=== PATIENT | female | born 1950 | race Caucasian/White ===

== ENCOUNTER 2018-05-30 19:33 | Emergency (ER) | payer MEDICARE, SELFPAY ==
[2018-05-30 19:33] VITALS: BP 132/75; PULSE 95; RESP 18; TEMP 36.4; O2SAT 100; BMI 34.9
--- NOTE | 2018-05-30 20:07 | ED.VISSUMM ---
- ER Visit Summary Date of Service: 05/30/18 Chief Complaint: Back pain History of Present Illness: The patient is a 67 F with back pain. The patient has a history of back pain. I know her well from a different emergency department and have seen her on many occasions. She was previously in pain management and she was kicked out because of pill count issues. She usually comes to the ER for breakthrough pain. She complains of her typical back pain in her lower back. It radiates down her legs. Worse with movement and ambulation. No new symptoms. No abdominal pain or GI symptoms. No urinary symptoms. No fevers or systemic symptoms. No weakness or numbness. She also has psoriasis and is requesting a burst therapy of prednisone. She has had this issue many times in the past. Physical Examination: Afebrile and vital signs unremarkable. Patient is alert and oriented. No acute distress. Skin shows scaly and silvery plaques over her lower extremities. Abdomen soft. Back is diffusely tender. Neurovascular intact distally. Test Results: None indicated Emergency Department Course and Treatment: Patient received oral pain medication in the emergency department. I advised that we will not prescribe narcotics for chronic pain. She needs to follow-up with a new pain doctor. She was given a burst therapy for prednisone. Risks were discussed. She will follow-up with primary care for this. Return at any time for any new or worsening issues. Treatment Plan: As above Disposition: Discharged Impression: 1. Chronic back pain This note was generated with [employer] (air [employer]) dictation software. It may contain incorrect words, spelling, and punctuation that were not noted in review of the chart prior to signing ED Disposition - Plan for ED Patient: Chief Complaint: Back
--- NOTE | 2018-05-30 20:11 | ED.DEP ---
ED Disposition - Plan for ED Patient: Chief Complaint: Back Instructions: ED Sprain Strain Lumbar Prescriptions: Prednisone 40 mg PO UD 5 Days #20 tab Referrals: Kacy Juarez MD [STAFF PHYSICIAN] -
[2018-05-30] MEDS: oxyCODONE 5 MG Tablet 10 MG PO (20:18)
== END 2018-05-30 20:26 | disposition home or self-care (01) ==
PROVIDERS: Emergency Provider Emergency Medicine
DX: M54.9 Dorsalgia, unspecified (principal); G89.29 Other chronic pain; L40.9 Psoriasis, unspecified; Z79.01 Long term (current) use of anticoagulants; Z79.899 Other long term (current) drug therapy
CPT/HCPCS: 99283

== ENCOUNTER 2018-06-01 11:47 | Emergency (ER) | payer MEDICARE, SELFPAY ==
[2018-06-01 11:48] VITALS: BP 145/96; PULSE 101; RESP 18; TEMP 36.1; O2SAT 99; BMI 34.9
--- NOTE | 2018-06-01 12:06 | ED.VISSUMM ---
- ER Visit Summary Date of Service: 06/01/18 Chief Complaint: Chronic back pain History of Present Illness: The patient is a 67 F with a history of multiple presenting to the emergency department requesting Percocet. She states that she was discharged from pain management because she failed a pill count. She is currently waiting to get into pain management out here in [place]. She states that she has seen multiple surgeons and has been told that surgically there is nothing they can do. She denies any changes in the character or severity of her pain. It is in the same location as usual. She states that she was here 2 days ago and received Percocet. Physical Examination: Mild paraspinal lumbar tenderness bilaterally but no midline tenderness, erythema, or fluctuance. Normal strength and sensation in both lower extremities. Negative Babinski's. No clonus. Reflexes are normal and symmetric. Test Results: None performed Emergency Department Course and Treatment: She was given Percocet here. I have seen her at an outside hospital multiple times for the same complaint. She assures me that this is a chronic issue. I did not feel comfortable prescribing her chronic medications and I encouraged her to see her primary care physician or pain management for further prescriptions but her pain was addressed here. She does not want any non-opiate pain medication. She states that nothing else helps her including muscle relaxers or steroids. Treatment Plan: Follow-up with her doctor Disposition: Home stable Impression: Initial encounter chronic back pain This note was generated with [employer] dictation software. It may contain incorrect words, spelling, and punctuation that were not noted in review of the chart prior to signing ED Disposition - Plan for ED Patient: Chief Complaint: Other, Pain/Inj Instructions: ED Chronic Pain Management Referrals: Care Physician,No Primary [Primary Care Provider] -
[2018-06-01] MEDS: oxyCODONE 5 MG Tablet 10 MG PO (12:24)
== END 2018-06-01 12:25 | disposition home or self-care (01) ==
LOC: ED 12:20
PROVIDERS: Emergency Provider Emergency Medicine
DX: M54.9 Dorsalgia, unspecified (principal); G89.29 Other chronic pain; M19.90 Unspecified osteoarthritis, unspecified site; Z79.01 Long term (current) use of anticoagulants; Z79.899 Other long term (current) drug therapy
CPT/HCPCS: 99282

== ENCOUNTER → 2018-06-03 13:09 | Outpatient (CLI) | payer MEDICARE, SELFPAY ==
[2018-06-03 16:01] LABS: Amphetamine Urine VISTA NEGATIVE (<1000 ng/mL); Barbiturate Urine VISTA NEGATIVE (< 200 ng/mL); Benzodiazepine Urine VISTA NEGATIVE (< 200 ng/mL); Cocaine Urine VISTA NEGATIVE (< 300 ng/mL); Ecstacy Urine VISTA NEGATIVE (< 500 ng/mL); Methadone Urine VISTA NEGATIVE (< 300 ng/mL); PCP Urine VISTA NEGATIVE (< 25 ng/mL); THC Urine VISTA NEGATIVE (< 50 ng/mL); Vista UDS pH Range 7
== END ==
PROVIDERS: Referring Provider Anesthesiology Pain Medicine; Visit Provider Anesthesiology Pain Medicine
DX: F11.20 Opioid dependence, uncomplicated (principal)
CPT/HCPCS: 80307

== ENCOUNTER 2018-07-05 11:06 | Emergency (ER) | payer MEDICARE, SELFPAY ==
[2018-07-05 11:07] VITALS: BP 144/64; PULSE 104; RESP 16; TEMP 36.6; O2SAT 97; BMI 35.1
--- NOTE | 2018-07-05 11:39 | ED.DCSUM_ITS ---
- ER Visit Summary Date of Service: 07/05/18 Chief Complaint: Back pain History of Present Illness: The patient is a 67 F with chronic back pain. She is in pain management. She uses 3 Percocets per day and they are not helping with her pain. She complains of increasing back pain. No interval changes or injuries. No new symptoms. No GI or symptoms. She also has bilateral lower extremity skin rashes and scaling. She has a history of eczema. She is requesting a prednisone prescription for this. She did have cellulitis recently but it has cleared up. No fevers or systemic symptoms. Physical Examination: Afebrile and vital signs unremarkable. Alert and oriented. No acute distress. Moving without any apparent difficulty or distress. Abdomen soft. Extremities unremarkable except for a scaly dry rash to her lower extremities. No erythema or warmth. Neurovascular intact in all extremities. Symmetric. Test Results: None indicated Emergency Department Course and Treatment: Patient will be treated with subcu Dilaudid and a prednisone burst therapy. She was advised to follow-up with pain management. Return for any new or worsening issues. Treatment Plan: As above Disposition: Discharge Impression: 1. Chronic back pain This note was generated with [employer] dictation software. It may contain incorrect words, spelling, and punctuation that were not noted in review of the chart prior to signing ED Disposition - Plan for ED Patient: Chief Complaint: Back Referrals: Care Physician,No Primary [Primary Care Provider] -
--- NOTE | 2018-07-05 11:43 | ED.DEP ---
ED Disposition - Plan for ED Patient: Chief Complaint: Back Instructions: ED Sprain Strain Lumbar Prescriptions: Prednisone 40 mg PO UD 5 Days #20 tab
[2018-07-05] MEDS: HYDROmorphone 1 MG/ML Syringe SC (11:52)
[2018-07-05 12:11] VITALS: BP 144/87; PULSE 100; RESP 15; O2SAT 93
--- OUTSIDE RECORDS SUMMARY | 2018-08-28 23:09 | XMS RPT_ITS ---
:1950 Author Organization [facility] Address [address] [place] [address] Phone Care Team Providers Name Role Phone Johnny Tidwell MD Unavailable Reason for Visit Reason For Visit Description Start Date New - 1st visit with practice Preliminary reason for visit data, not yet signed by the author as of lower back pain Preliminary reason for visit data, not yet signed by the author as of Chief Complaint Chief Complaint Description Start Date lower back pain Preliminary chief complaint data, not yet signed by the author as of Instructions Instruction Description Start Date Patient advised to follow-up with Primary Care Physician for BMI management. Plan of Care Type Date Detail Appointment 01:30 PM Johnny Tidwell MD, [address] [place] [address], [id number], Pending order XR LUMBAR 4VWS FLEX/EX Pending order DXA - standard order of spine and hip; axial skeleton 1 + views Patient education \[email or web address] Medications Medication Instructions Start Stop Generic Name NDC Provider Date Date IBUPROFEN 400 as needed IBUPROFEN [id number] Johnny Manuel MG TABS 5 Yaw STEIN XARELTO 20 MG one tab daily RIVAROXABAN [id number] Johnny Tidwell MD LISINOPRIL-HYD one tab daily LISINOPRIL-HYD [id number] Johnny Manuel ROCHLOROTHIAZI 5 ROCHLOROTHIAZI Yaw STEIN DE 10-12.5 MG DE TABS RISPERDAL 0.25 one tab twice RISPERIDONE [id number] Johnny S MG TABS daily 5 Yaw STEIN ZOLOFT 100 MG one tab daily SERTRALINE HCL [id number] Johnny S TABS 5 Yaw TSEIN Conditions or Problems Problem Name Problem Onset Status Entry Provider Comment Standard Annotate Code Date Date Description Osteoporosis 44655061 Active Johnny S Osteoporosis (SNOMED 04/28 04/[address]) Other M51.36 Active Johnny S Other intervertebral (ICD-10-C 04/28 04/28 Yaw STEIN intervertebral disc M) disc degeneration degeneration, lumbar region lumbar region Other idiopathic M41.26 Active Johnny S Other scoliosis lumbar (ICD-10-C 04/28 04/28 Yaw STEIN idiopathic region M) scoliosis, lumbar region Allergies, Adverse Reactions, Alerts Allergy Name Reaction Start Date Severity Status Provider Description MORPHINE itching Critical Active Johnny S SULFATE Yaw STEIN Social History Concept Description Observation Name Observation Value Units Start Date Alcohol use ETOH USE Yes Preliminary social history data, not yet signed by the author as of Details of drug DRUG USE No misuse behavior Preliminary social history data, not yet signed by the author as of Former smoker SMOK STATUS former smoker Preliminary social history data, not yet signed by the author as of Vital Signs Date Name Value Unit Description BMI (Body Mass 35.13 kg/m2 Body Mass Index Index) [Ratio] Preliminary vital sign data, not yet signed by the author as of BP Diastolic 59 mm[Hg] blood pressure, diastolic Preliminary vital sign data, not yet signed by the author as of BP Systolic 87 mm[Hg] blood pressure, systolic Preliminary vital sign data, not yet signed by the author as of Heart Rate 101 /min pulse rate E&M Preliminary vital sign data, not yet signed by the author as of Height 69 [in_us] height E&M Preliminary vital sign data, not yet signed by the author as of Height 175 cm height in centimeters E&M Preliminary vital sign data, not yet signed by the author as of Weight Measured 237 [lb_av] weight E&M Preliminary vital sign data, not yet signed by the author as of Weight Measured 108 kg weight in kilograms E&M Preliminary vital sign data, not yet signed by the author as of Results Date Name Value Unit Range Flag Description Office Visit: New - 1st visit with practice, Rm: 1 MEDS REVIEW Done Documentation of current medications (procedure) Preliminary observation data, not yet signed by the author as of SMOK STATUS former smoker Tobacco smoking status NHIS Preliminary observation data, not yet signed by the author as of Preliminary observation data, not yet signed by the author as of XRAY HX of the lumbar-2 view on xray history 08/17/2017 at [facility]-imported Preliminary observation data, not yet signed by the author as of MRI HX of the lumbar on MRI (magnetic 09/16/2016 at [facility]- imported imaging) history Preliminary observation data, not yet signed by the author as of Clinical Summary: HMSPatientID NOP account number Procedures Code Procedure Name Date Entry Date CPT-14216 Physical Therapy G8730 Pain assessment documented as positive - follow-up documented G8427 Current medications documented 1036F Tobacco screening was negative - non user G8417 BMI documented as above normal parameters - follow-up documented G8783 Blood pressure within normal parameters - no follow-up required 1100F Fallen more than twice or injured themselves from a fall documented 3288F Falls risk assessment documented 0518F Falls plan of care documented [id number] Patient Encounter Medications Administered No information available. Immunizations No information available. Advance Directives There may be information available, but it has not been provided by the sender. Assessments There may be information available, but it has not been provided by the sender. Review of Systems There may be information available, but it has not been provided by the sender. Family History There may be information available, but it has not been provided by the sender. History of Past Illness There may be information available, but it has not been provided by the sender. History of Present Illness There may be information available, but it has not been provided by the sender.
--- OUTSIDE RECORDS SUMMARY | 2018-08-28 23:11 | XMS RPT_ITS ---
:1950 Author Organization [place] Support Name Relationship Address Phone Lindsay Pereira Unavailable Unavailable + Lindsay Pereira Unavailable Unavailable + SARA PEREIRA Unavailable [address] + [place] [address] R Unavailable Unavailable Unavailable RANDALL RAY Unavailable [address] + [place] [address] Lindsay Pereira Unavailable Unavailable + RANDALL RAY Unavailable [address] + [place] [address] R Unavailable Unavailable Unavailable RANDALL RAY Unavailable [address] + [place] [address] R Unavailable Unavailable Unavailable RANDALL RAY Unavailable [address] + [place] [address] R Unavailable Unavailable Unavailable RANDALL RAY Unavailable [address] + [place] [address] Lindsay Pereira Unavailable Unavailable + RANDALL RAY Unavailable [address] + [place] [address] Lindsay Pereira Unavailable Unavailable + Lindsay Pereira Unavailable Unavailable + Lindsay Pereira Unavailable Unavailable + Lindsay Pereira Unavailable Unavailable + Lindsay Pereira Unavailable Unavailable + RANDALL RAY Unavailable [address] + [place] [address] RANDALL RAY Unavailable [address] + [place] [address] Lindsay Pereira Unavailable Unavailable + Garcia Pereiracil Unavailable Unavailable + SARA PEREIRA Unavailable [address] + [place] [address] R Unavailable Unavailable Unavailable Garcia Pereriacil Unavailable Unavailable + RANDALL RAY Unavailable [address] + [place] [address] RANDALL RAY Unavailable [address] + [place] [address] R Unavailable Unavailable Unavailable SARA PEREIRA Unavailable [address] + [place] [address] RANDALL RAY Unavailable [address] + [place] [address] RANDALL RAY Unavailable [address] + [place] [address] R Unavailable Unavailable Unavailable Garcia Pereiracil Unavailable Unavailable + SARA PEREIRA Unavailable [address] + [place] [address] Garcia Pereiracil Unavailable Unavailable + SARA PEREIRA Unavailable [address] + [place] [address] Garcia Pereiracil Unavailable Unavailable + Randall Dencil Unavailable Unavailable + Randall Dencil Unavailable Unavailable + Randall Dencil Unavailable Unavailable + RANDALL RAY Unavailable [address] + [place] [address] Garcia Pereiracil Unavailable Unavailable + Randall Dencil Unavailable Unavailable + Randall Dencil Unavailable Unavailable + RANDALL RAY Unavailable [address] + [place] [address] RANDALL RAY Unavailable [address] + [place] [address] RANDALL RAY Unavailable [address] + [place] [address] Garica Pereiracil Unavailable Unavailable + Randall Dencil Unavailable Unavailable + Pereira, Dencil Unavailable Unavailable + Pereira, Dencil Unavailable Unavailable + PEREIRA, RAY Unavailable [address] + [place] [address] Randall Dencil Unavailable Unavailable + Pereira, Dencil Unavailable Unavailable + Pereira, Dencil Unavailable Unavailable + Pereira, Dencil Unavailable Unavailable + Randall Dencil Unavailable Unavailable + Randall Dencil Unavailable Unavailable + PEREIRA RAY Unavailable [address] + [place] [address] Randall Dencil Unavailable Unavailable + Randall Dencil Unavailable Unavailable + Randall Dencil Unavailable Unavailable + Randall Dencil Unavailable Unavailable + Randall Dencil Unavailable Unavailable + RANDALL RAY Unavailable [address] + [place] [address] PEREIRA, RAY Unavailable [address] + [place] [address] RANDALL RAY Unavailable [address],[place] [address] + RANDALL RAY Unavailable [address],[place] [address] + Randall Dencil Unavailable Unavailable + PEREIRA RAY Unavailable [address] + [place] [address] Randall Dencil Unavailable Unavailable + PEREIRA, RAY Unavailable [address] + [place] [address] Randall Dencil Unavailable Unavailable + PEREIRA RAY Unavailable [address] + [place] [address] PEREIRA, RAY Unavailable [address] + [place] [address] Pereira, Dencil Unavailable Unavailable + Pereira, Dencil Unavailable Unavailable + PEREIRA, RAY Unavailable [address] + [place] [address] Randall, Dencil Unavailable Unavailable + Pereira, Dencil Unavailable Unavailable + PEREIRA, RAY Unavailable [address] + [place] [address] Randall Dencil Unavailable Unavailable + PEREIRA, RAY Unavailable [address] + [place] [address] PEREIRA, RAY Unavailable [address] + [place] [address] Randall Dencil Unavailable Unavailable + Randall Dencil Unavailable Unavailable + PEREIRA, RAY Unavailable [address] + [place] [address] PEREIRA, RAY Unavailable [address] + [place] [address] Randall Dencil Unavailable Unavailable + Randall Dencil Unavailable Unavailable + PEREIRA, RAY Unavailable [address] + [place] [address] PEREIRA, RAY Unavailable [address] + [place] [address] Pereira, Dencil Unavailable Unavailable + Pereira, Dencil Unavailable Unavailable + PEREIRA, RAY Unavailable [address] + [place] [address] Pereira, Dencil Unavailable Unavailable + Pereira, Dencil Unavailable Unavailable + PEREIRA, RAY Unavailable [address] + [place] [address] Pereira Dencil Unavailable Unavailable + Pereira, Dencil Unavailable Unavailable + Garcia Pereiracil Unavailable Unavailable + SARA PEREIRA Unavailable [address] + [place] [address] PereiraGarcianirav Unavailable Unavailable + Randall Dencil Unavailable Unavailable + SARA PEREIRA Unavailable [address] + [place] [address] RANDALL RAY Unavailable [address] + [place] [address] SARA PEREIRA Unavailable [address] + [place] [address] RANDALL RAY Unavailable [address] + [place] [address] SARA PEREIRA Unavailable Unavailable + NONE TO LIST Unavailable Unavailable Unavailable SARA PEREIRA Unavailable [address] + [place] [address] SARA PEREIRA Unavailable [address] + [place] [address] ALENA PEREIRA Unavailable Unavailable + SARA PEREIRA Unavailable Unavailable + RANDALL RAY Unavailable [address] + [place] [address] Garcia Pereiracil Unavailable Unavailable + SARA PEREIRA Unavailable [address] + [place] [address] RANDALL ALENA Unavailable Unavailable + RANDALL RAY Unavailable Unavailable + RANDALL ALENA Unavailable Unavailable + SARA PEREIRA Unavailable Unavailable + RANDALL RAY Unavailable [address] + [place] [address] RandallGarcianirav Unavailable Unavailable + ALENA PEREIRA Unavailable Unavailable + SARA PEREIRA Unavailable Unavailable + RANDALL RAY Unavailable Unavailable + NONE TO LIST Unavailable Unavailable Unavailable Care Team Providers Name Role Phone Mario Beatty Attending Unavailable Unavailable, Family Physician Primary Care Unavailable Unavailable, Family Physician Consulting Unavailable Mario Beatty Attending Unavailable Unavailable, Family Physician Primary Care Unavailable Unavailable, Family Physician Consulting Unavailable Renato Woodard Attending Unavailable Unavailable, Family Physician Primary Care Unavailable Unavailable, Family Physician Consulting Unavailable IRMA BERNSTEIN) Attending Unavailable ROSITA LEIGH Attending Unavailable KENA ARSHAD Attending Unavailable DEACON CHU Attending Unavailable ROSITA LEIGH Attending Unavailable ALEXIS WALDEN Attending Unavailable CLIFFORD, NO A Attending Unavailable CLIFFORD, NO A Referring Unavailable CLIFFORD, NO A Referring Unavailable ROSITA LEIGH Attending Unavailable CLIFFORD, NO A Attending Unavailable CLIFFORD, NO A Referring Unavailable HANK GONZALEZ Attending Unavailable ELIAS TEAGUE Attending Unavailable CHRISTIE GARZA Attending Unavailable CLIFFORD, NO A Referring Unavailable DARRON FAIRCHILD (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) Attending Unavailable CLIFFORD, NO A Referring Unavailable CLIFFORD, NO A Attending Unavailable DARRON FAIRCHILD (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) Referring Unavailable DARRON FAIRCHILD (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) Attending Unavailable DARRON FAIRCHILD (JONES) Referring Unavailable RENATO HUNTLEY Attending Unavailable Yeny, Dr. Sergey Young Admitting Unavailable Yney, Dr. Sergey Young Attending Unavailable MD IRMA BERNSTEIN Attending Unavailable JOSÉ LEIGH Attending Unavailable KENA ARSHAD Attending Unavailable IMCA Primary Care Unavailable DEACON CHU Attending Unavailable IMCA Primary Care Unavailable JOSÉ LEIGH Attending Unavailable IMCA Referring Unavailable IMCA Primary Care Unavailable CLIFFORD, NO DE LEON Attending Unavailable IMCA Primary Care Unavailable ALEXIS WALDEN Attending Unavailable CLIFFORD, NO MOISES Primary Care Unavailable CLIFFORD, NO MOISES Referring Unavailable CLIFFORD, NO ANN Attending Unavailable CLIFFORD, NO MOISES Primary Care Unavailable CLIFFORD, NO MOISES Referring Unavailable CLIFFORD, NO MOISES Attending Unavailable CLIFFORD, NO MOISES Primary Care Unavailable CLIFFORD, NO MOISES Referring Unavailable CLIFFORD, NO MOISES Primary Care Unavailable JOSÉ LEIGH Attending Unavailable CLIFFORD, NO MOISES Primary Care Unavailable CLIFFORD, NO MOISES Referring Unavailable CLIFFORD, NO MOISES Attending Unavailable CLIFFORD, NO MOISES Primary Care Unavailable CLIFFORD, NO MOISES Referring Unavailable CLIFFORD, NO MOISES Attending Unavailable IMCA Referring Unavailable CLIFFORD, NO MOISES Primary Care Unavailable PHANI SABA Attending Unavailable CLIFFORD, NO MOISES Primary Care Unavailable HANK GONZALEZ Attending Unavailable CLIFFORD, NO MOISES Primary Care Unavailable ELIAS TEAGUE Attending Unavailable CLIFFORD, NO MOISES Primary Care Unavailable CLIFFORD, NO MOISES Referring Unavailable GRATZ, DARRON A Attending Unavailable CLIFFORD, NO MOISES Primary Care Unavailable CLIFFORD, NO MOISES Referring Unavailable CHRISTIE GARZA Attending Unavailable IMCA Referring Unavailable CLIFFORD, NO MOISES Primary Care Unavailable CLIFFORD, NO MOISES Attending Unavailable CLIFFORD, NO MOISES Primary Care Unavailable CLIFFORD, NO MOISES Referring Unavailable GRATZ, DARRON A Attending Unavailable CLIFFORD, NO MOISES Primary Care Unavailable CLIFFORD, NO MOISES Attending Unavailable GRATZ, DARRON A Referring Unavailable CLIFFORD, NO MOISES Primary Care Unavailable CLIFFORD, NO MOISES Attending Unavailable GRATZ, DARRON A Referring Unavailable CLIFFORD, NO MOISES Primary Care Unavailable GRATZ, DARRON A Referring Unavailable GRATZ, DARRON A Attending Unavailable CLIFFORD, NO MOISES Primary Care Unavailable RENATO HUNTLEY Attending Unavailable PROVIDER, UNKNOWN Referring Unavailable No, PCP Primary Care Unavailable Yaa Gutiérrez Attending Unavailable PROVIDER, UNKNOWN Referring Unavailable No, PCP Primary Care Unavailable PROVIDER, UNKNOWN Attending Unavailable PROVIDER, UNKNOWN Referring Unavailable No, PCP Primary Care Unavailable PROVIDER, UNKNOWN Attending Unavailable PROVIDER, UNKNOWN Referring Unavailable No, PCP Primary Care Unavailable Edgar Lugo Attending Unavailable Glenn Michel Attending Unavailable PROVIDER, UNKNOWN Referring Unavailable No, PCP Primary Care Unavailable PROVIDER, UNKNOWN Referring Unavailable No, PCP Primary Care Unavailable JOCELYNN CANCINO Attending Unavailable PROVIDER, UNKNOWN Referring Unavailable No, PCP Primary Care Unavailable PROVIDER, UNKNOWN Attending Unavailable PROVIDER, UNKNOWN Referring Unavailable No, PCP Primary Care Unavailable AKIN STANTON Attending Unavailable PROVIDER, UNKNOWN Referring Unavailable No, PCP Primary Care Unavailable PROVIDER, UNKNOWN Attending Unavailable Kimmie Odell Attending Unavailable PROVIDER, UNKNOWN Referring Unavailable Bonyo, Araujo Primary Care Unavailable Alexis Kinsey Attending Unavailable PROVIDER, UNKNOWN Referring Unavailable No, PCP Primary Care Unavailable Jack Shoemaker Attending Unavailable PROVIDER, UNKNOWN Referring Unavailable Clifford, No Primary Care Unavailable Seven Mcgregor Attending Unavailable PROVIDER, UNKNOWN Referring Unavailable Clifford, No Primary Care Unavailable PROVIDER, UNKNOWN Referring Unavailable Clifford, No Primary Care Unavailable RICHARD BASILIO Attending Unavailable PROVIDER, UNKNOWN Referring Unavailable Clifford, No Primary Care Unavailable PROVIDER, UNKNOWN Attending Unavailable PROVIDER, UNKNOWN Referring Unavailable Clifford, No Primary Care Unavailable Kimmie Odell Attending Unavailable PROVIDER, UNKNOWN Referring Unavailable Clifford, No Primary Care Unavailable SIOBHAN FONTANA Attending Unavailable Ahsan Clements Attending Unavailable PROVIDER, UNKNOWN Referring Unavailable Clifford, No Primary Care Unavailable PROVIDER, UNKNOWN Referring Unavailable Clifford, No Primary Care Unavailable Irma Palma Attending Unavailable PROVIDER, UNKNOWN Referring Unavailable Clifford, No Primary Care Unavailable Alexis Carlson Attending Unavailable PROVIDER, UNKNOWN Referring Unavailable Clifford, No Primary Care Unavailable Michael Servin Attending Unavailable PROVIDER, UNKNOWN Referring Unavailable Clifford, No Primary Care Unavailable AKIN STANTON Attending Unavailable PROVIDER, UNKNOWN Referring Unavailable Clifford, No Primary Care Unavailable SIOBHAN FONTANA Attending Unavailable PROVIDER, UNKNOWN Referring Unavailable Clifford, No Primary Care Unavailable JOCELYNN CANCINO Attending Unavailable PROVIDER, UNKNOWN Referring Unavailable Clifford, No Primary Care Unavailable AN MCDOWELL Attending Unavailable PROVIDER, UNKNOWN Attending Unavailable PROVIDER, UNKNOWN Referring Unavailable Clifford, No Primary Care Unavailable PROVIDER, UNKNOWN Referring Unavailable Clifford, No Primary Care Unavailable Florence Bourgeois Attending Unavailable JENNIFER TREJO Attending Unavailable PROVIDER, UNKNOWN Referring Unavailable Clifford, No Primary Care Unavailable PROVIDER, UNKNOWN Referring Unavailable Clifford, No Primary Care Unavailable FEDE WOLF Attending Unavailable PROVIDER, UNKNOWN Referring Unavailable Clifford, No Primary Care Unavailable FEDE WOLF Attending Unavailable PROVIDER, UNKNOWN Referring Unavailable Clifford, No Primary Care Unavailable Alejandro Bear Attending Unavailable PROVIDER, UNKNOWN Referring Unavailable Clifford, No Primary Care Unavailable JOCELYNN CANCINO Attending Unavailable PROVIDER, UNKNOWN Referring Unavailable Clifford, No Primary Care Unavailable Michael Gilbert . Attending Unavailable PROVIDER, UNKNOWN Referring Unavailable Clifford, No Primary Care Unavailable KJ MARTINEZ Attending Unavailable PROVIDER, UNKNOWN Referring Unavailable Clifford, No Primary Care Unavailable QUINTIN JIMENEZ Attending Unavailable PROVIDER, UNKNOWN Referring Unavailable Clifford, No Primary Care Unavailable FRANCINE HOOVER Attending Unavailable Nicholas Quiros Attending Unavailable PROVIDER, UNKNOWN Referring Unavailable No, PCP Primary Care Unavailable Yaa Gutiérrez Attending Unavailable PROVIDER, UNKNOWN Referring Unavailable No, PCP Primary Care Unavailable PROVIDER, UNKNOWN Referring Unavailable Clifford, No Primary Care Unavailable PROVIDER, UNKNOWN Attending Unavailable PROVIDER, UNKNOWN Referring Unavailable Clifford, No Primary Care Unavailable FEDE WOLF Attending Unavailable Trish Santiago Attending Unavailable PROVIDER, UNKNOWN Referring Unavailable No, PCP Primary Care Unavailable PROVIDER, UNKNOWN Referring Unavailable No, PCP Primary Care Unavailable Andrzej Shoemaker Attending Unavailable PROVIDER, UNKNOWN Referring Unavailable No, PCP Primary Care Unavailable GINGER YAN Attending Unavailable PROVIDER, UNKNOWN Referring Unavailable No, PCP Primary Care Unavailable Bill Aguila Attending Unavailable PROVIDER, UNKNOWN Referring Unavailable No, PCP Primary Care Unavailable QUINTIN JIMENEZ Attending Unavailable PROVIDER, UNKNOWN Referring Unavailable No, PCP Primary Care Unavailable YANELIS DAI Attending Unavailable PROVIDER, UNKNOWN Referring Unavailable No, PCP Primary Care Unavailable Bill Aguila Attending Unavailable PROVIDER, UNKNOWN Referring Unavailable No, PCP Primary Care Unavailable AKIN STANTON Attending Unavailable Alexis Carlson Attending Unavailable PROVIDER, UNKNOWN Referring Unavailable No, PCP Primary Care Unavailable Yuli Newby Attending Unavailable PROVIDER, UNKNOWN Referring Unavailable Clifford, No Primary Care Unavailable UNKNOWN, PROVIDER Attending Unavailable PROVIDER, UNKNOWN Referring Unavailable Clifford, No Primary Care Unavailable PROVIDER, UNKNOWN Referring Unavailable Clifford, No Primary Care Unavailable SARAH AGUILA Attending Unavailable PROVIDER, UNKNOWN Attending Unavailable PROVIDER, UNKNOWN Referring Unavailable No, PCP Primary Care Unavailable GINGER YAN Attending Unavailable PROVIDER, UNKNOWN Referring Unavailable No, PCP Primary Care Unavailable PROVIDER, UNKNOWN Referring Unavailable No, PCP Primary Care Unavailable Michael Gilbert . Attending Unavailable PROVIDER, UNKNOWN Referring Unavailable No, PCP Primary Care Unavailable ERNESTINA MAYFIELD Attending Unavailable PROVIDER, UNKNOWN Referring Unavailable No, PCP Primary Care Unavailable Js Gracia Attending Unavailable PROVIDER, UNKNOWN Referring Unavailable No, PCP Primary Care Unavailable Uyen Altman Attending Unavailable Osmundson, Alexis Attending Unavailable PROVIDER, UNKNOWN Referring Unavailable No, PCP Primary Care Unavailable CAM MONREAL Admitting Unavailable CAM MONREAL Attending Unavailable AA NO PCP, NO PCP Primary Care Unavailable AA NO PCP, NO PCP Primary Care Unavailable YULI ROSE Admitting Unavailable YULI ROSE Attending Unavailable AA NO PCP, NO PCP Primary Care Unavailable ADDIE TRAN Admitting Unavailable ADDIE TRAN Attending Unavailable AA NO PCP, NO PCP Primary Care Unavailable ADDIE TRAN J Admitting Unavailable ADDIE TRAN Attending Unavailable PHYSICIAN, NONE Primary Care Unavailable MARQUIS EL Attending Unavailable [facility] Referring Unavailable PHYSICIAN, NONE Primary Care Unavailable MELISSA MICHELLE Attending Unavailable [facility] Referring Unavailable PHYSICIAN, NONE Primary Care Unavailable JUDY FARRAR Attending Unavailable ELIAS BARBOZA DO Referring Unavailable PHYSICIAN, NONE Primary Care Unavailable OSCAR CORCORAN Attending Unavailable PHYSICIAN, NONE Referring Unavailable PHYSICIAN, NONE Primary Care Unavailable DAYANNA ALEJANDRA Attending Unavailable JUSTIN SANTAMARIA MD Referring Unavailable PHYSICIAN, NONE Primary Care Unavailable MARQUIS EL Attending Unavailable DR. ANTONIO ANNA MD. Referring Unavailable PHYSICIAN, NONE Primary Care Unavailable YAMILET HARTLEY Attending Unavailable NOEMY MARVIN, DR. ESCAMILLA Referring Unavailable PHYSICIAN, NONE Primary Care Unavailable MELISSA MICHELLE Attending Unavailable [facility] Referring Unavailable PHYSICIAN, NONE Primary Care Unavailable JOEY ROSS Attending Unavailable [facility] Referring Unavailable PHYSICIAN, NONE Primary Care Unavailable FLORENCE CA Attending Unavailable [facility] Referring Unavailable PHYSICIAN, NONE Primary Care Unavailable DR. GAYATHRI PEREZ DO Attending Unavailable [facility] Referring Unavailable PHYSICIAN, NONE Primary Care Unavailable MS. DENNISE RUVALCABA Attending Unavailable JSUTIN ASNTAMARIA MD Referring Unavailable CLIFFORD MARVIN, NO Primary Care Unavailable JOSHUA MARVIN, DR. DAI Attending Unavailable CLIFFORD MARVIN, NO Referring Unavailable CLIFFORD MARVIN, NO Primary Care Unavailable LATRICE BUSTAMANTE Attending Unavailable CLIFFORD MARVIN, NO Primary Care Unavailable LÁZARO RDZ DO Attending Unavailable CLIFFORD MARVIN, NO Referring Unavailable CLIFFORD MARVIN, NO Primary Care Unavailable ZIA AVILA (Rx C2), CATHIE Henry Attending Unavailable CLIFFORD MARVIN, NO Primary Care Unavailable FLORENCE CA Attending Unavailable CLIFFORD MARVIN, NO Referring Unavailable CLIFFORD MARVIN, NO Primary Care Unavailable MARY GRACE RALPH Attending Unavailable CLIFFORD MARVIN, NO Referring Unavailable CLIFFORD MARVIN, NO Primary Care Unavailable Teri Lamb MD Attending Unavailable CLIFFORD MARVIN, NO Primary Care Unavailable DONAL PA-C (Rx C2), DANNA Car Attending Unavailable CLIFFORD MARVIN, NO Primary Care Unavailable JACOB FROST Attending Unavailable NANNETTE DONATO MD Referring Unavailable CLIFFORD MARVIN, NO Primary Care Unavailable TERESA OLIVEIRA MD Attending Unavailable CLIFFORD MARVIN, NO Referring Unavailable CLIFFORD MARVIN, NO Primary Care Unavailable SEVEN KING MD Attending Unavailable CLIFFORD MARVIN, NO Primary Care Unavailable JOEY ROSS Attending Unavailable CLIFFORD MARVIN, NO Primary Care Unavailable PRITESH KIMBALL Attending Unavailable CLIFFORD MARVIN, NO Referring Unavailable CLIFFORD MARVIN, NO Primary Care Unavailable FLORENCE CA Attending Unavailable CLIFFORD MARVIN, NO Referring Unavailable PHYSICIAN, NONE Primary Care Unavailable FALLON LEWIS MD Attending Unavailable [facility] Referring Unavailable REFERRING REFERRINGJEFF WO ID~[id number] Primary Care Unavailable NAKUL PA-C, TERRY Car Attending Unavailable [facility] Referring Unavailable PHYSICIAN, NONE Primary Care Unavailable KRISTOPHER WALSH Attending Unavailable PHYSICIAN, NONE Primary Care Unavailable MS. DENNISE RUVALCABA Attending Unavailable ROBERTO MARVIN, DR. RONNI Henry Referring Unavailable PHYSICIAN, NONE Primary Care Unavailable KJ PRITCHETT DO Attending Unavailable [facility] Referring Unavailable PHYSICIAN, NONE Primary Care Unavailable KJ PRITCHETT DO Attending Unavailable PHYSICIAN, NONE Primary Care Unavailable OSCAR CORCORAN Attending Unavailable CLIFFORD MARVIN, NO Referring Unavailable PHYSICIAN, NONE Primary Care Unavailable BRAD YOUNG DO Attending Unavailable [facility] Referring Unavailable PHYSICIAN, NONE Primary Care Unavailable MS. DENNISE RUVALCAAB Attending Unavailable PHYSICIAN, NONE Primary Care Unavailable BHUMIKA CADENA MD, V. Attending Unavailable [facility] Referring Unavailable PHYSICIAN, NONE Primary Care Unavailable OSCAR CORCORAN Attending Unavailable PHYSICIAN, NONE Primary Care Unavailable KATIE WYATT, DR. SOULEYMANE Hernandes Attending Unavailable PHYSICIAN, NONE Primary Care Unavailable DAVE STEIN, ALEJANDRO Ross Attending Unavailable PHYSICIAN, NONE Primary Care Unavailable KJ PRITCHETT DO Attending Unavailable [facility] Referring Unavailable Bonnie Hale DPRodrick Attending Unavailable No Horton Primary Care Unavailable Bonnie Hale DPM Attending Unavailable Hank Gonzalez Attending Unavailable Primay Care Physicia, No Primary Care Unavailable Primay Care Physicia, No Primary Care Unavailable Elias Teague Attending Unavailable Kacy Juarez Attending Unavailable Kacy Juarez Referring Unavailable Primay Care Physicia, No Primary Care Unavailable Primay Care Physicia, No Primary Care Unavailable Hank Gonzalez Attending Unavailable Primay Care Physicia, No Primary Care Unavailable Cam Forte Attending Unavailable Primay Care Physicia, No Primary Care Unavailable Mike Cota Attending Unavailable Primay Care Physicia, No Primary Care Unavailable Kimmie Miller Attending Unavailable PRITESH MAHER Attending Unavailable Physician, No PCP Primary Care Unavailable NONE Referring Unavailable NONE Primary Care Unavailable FEDE STEVENS Attending Unavailable FEDE ZAVALA Attending Unavailable NONE Primary Care Unavailable PROBLEMS PROBLEMS DATE TYPE CONDITION / CODE ATTENDING STATUS SOURCE Admitting Other chronic pain [employer] 8 Diagnosis / G89.29(ICD-10) System Repository Admitting Scoliosis, [employer] ERNESTINA [employer] [facility] [email or web address] 8 Diagnosis unspecified / System M41.9(ICD-10) Repository Admitting Major depressive [facility] [employer] [facility] [email or web address] 8 Diagnosis disorder, single System episode, Repository unspecified / F32.9(ICD-10) Admitting Essential (primary) CoworkingON ERNESTINA [email or web address] 8 Diagnosis hypertension / System I10(ICD-10) Repository Admitting Disorder of [employer] ERNESTINA Active [email or web address] 8 Diagnosis thyroid, System unspecified / Repository E07.9(ICD-10) Admitting Acquired absence of [email or web address] 8 Diagnosis both cervix and System uterus / Repository Z90.710(ICD-10) Admitting Personal history of [facility] Active [facility] Health 8 Diagnosis nicotine dependence System / Z87.891(ICD-10) Repository Admitting Dorsalgia, [facility] Active [facility] 8 Diagnosis unspecified / System M54.9(ICD-10) Repository Admitting Other [facility] Active [facility] 8 Diagnosis intervertebral disc System degeneration, Repository lumbar region / M51.36(ICD-10) Admitting Pain in right leg / [facility] Active [facility] 8 Diagnosis M79.604(ICD-10) System Repository Admitting Personal history of ANTOINEDEDIXIE, [facility] 8 Diagnosis other venous System thrombosis and Repository embolism / Z86.718(ICD-10) Admitting Cellulitis of right [facility] 8 Diagnosis lower limb / System L03.115(ICD-10) Repository Admitting intermediate (current) [facility] 8 Diagnosis use of . System anticoagulants / Repository Z79.01(ICD-10) Admitting Cellulitis, [place] [address] Diagnosis unspecified / . System L03.90(ICD-10) Repository Admitting Other mcc [facility] [employer] [place] [address] Diagnosis (current) drug . System therapy / Repository Z79.899(ICD-10) Admitting Localized swelling, GINGER YAN [facility] 8 Diagnosis mass and lump, System right lower limb / Repository R22.41(ICD-10) Admitting Other specified Unknown Active [facility] [email or web address] 8 Diagnosis soft tissue System disorders / Repository M79.89(ICD-10) Admitting Pain in leg, [facility] 8 Diagnosis unspecified / System M79.606(ICD-10) Repository Admitting Low back pain / Unknown Active [facility] 8 Diagnosis M54.5(ICD-10) System Repository Admitting Strain of muscle, Yuli Newby Active [facility] 8 Diagnosis fascia and tendon System of lower back, subs Repository / S39.012D(ICD-10) Admitting Rash and other Alexis Carlson [facility] 8 Diagnosis nonspecific skin System eruption / Repository R21(ICD-10) Admitting Psoriasis, Alexis Carlson [facility] 8 Diagnosis unspecified / System L40.9(ICD-10) Repository Admitting Obesity, Alexis Carlson [facility] 8 Diagnosis unspecified / System E66.9(ICD-10) Repository Unknown F11.20 - Opioid Basali, Kacy Active [facility] 8 dependence, Community uncomplicated / Hospital F11.20(ICD-10) Repository Admitting Personal history of WISHNOSKY, [facility] 8 Diagnosis pulmonary embolism KRISITN System / Z86.711(ICD-10) Repository Admitting Lumbago with WISHNOSKArturo [facility] 8 Diagnosis sciatica, KRISITN System unspecified side / Repository M54.40(ICD-10) Admitting Unknown / PRITESH MAHER [place] [address] Diagnosis UNK(Unknown) Health System Repository Admitting Proc/trtmt not crd Bill Aguila [facility] 8 Diagnosis out d/t pt lv bef System seen by [facility] care Repository prov / Z53.21(ICD-10) Admitting Other psoriasis / Bill Aguial [facility] 8 Diagnosis L40.8(ICD-10) System Repository Admitting MalQUINTIN Gracia [facility] 8 Diagnosis [conscious System simulation] / Repository Z76.5(ICD-10) Admitting Personal history of QUINTIN JIMENEZ [facility] 8 Diagnosis other diseases of System the circulatory Repository system / Z86.79(ICD-10) Admitting salvage determiner (current) QUINTIN JIMENEZ [facility] 8 Diagnosis use of System non-steroidal Repository non-inflam (NSAID) / Z79.1(ICD-10) Admitting History of uterine Bill Aguila [facility] 8 Diagnosis scar from previous System surgery / Repository Z98.891(ICD-10) Admitting Prsnl history of Bill Aguila Active [facility] 8 Diagnosis dis of the System bld/bld-form Repository org/immun mechnsm / Z86.2(ICD-10) Admitting Diarrhea, GINGER YAN Active [facility] 8 Diagnosis unspecified / System R19.7(ICD-10) Repository Admitting Problem related to GINGER YAN Active [facility] 8 Diagnosis housing and System economic Repository circumstances, unsp / Z59.9(ICD-10) Admitting Generalized Unknown Active [facility] 8 Diagnosis enlarged lymph System nodes / Repository R59.1(ICD-10) Admitting Cervicalgia / Skobeloff, Nicholas Active [facility] 8 Diagnosis M54.2(ICD-10) System Repository Active Chronic pulmonary NO HORTON Active [facility] 8 embolism / Clinic Other I27.82(ICD-10) [place] Repository Active Subacute and NO HORTON Active [facility] 8 chronic vaginitis / Clinic Other N76.1(ICD-10) [place] Repository Active Lumbago with [facility] 8 sciatica, 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 Other side / [place] M54.41(ICD-10) Repository Active Lumbago with [facility] 8 sciatica, left side (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) Clinic Other / M54.42(ICD-10) [place] Repository Admitting Allergy status to KJ MARTINEZ Active [facility] 8 Diagnosis narcotic agent H System status / Repository Z88.5(ICD-10) Active Candidiasis of JUANJO, CHRISTIE Active [facility] 8 vulva and vagina / Clinic Other B37.3(ICD-10) [place] Repository Admitting Pain in left leg / Florence Bourgeois Active [facility] 8 Diagnosis M79.605(ICD-10) System Repository Admitting Tachycardia, Florence Borugeois Active [facility] 8 Diagnosis unspecified / System R00.0(ICD-10) Repository Admitting Other forms of Florence Bourgeois Active [facility] 8 Diagnosis scoliosis, lumbar System region / Repository M41.86(ICD-10) Admitting Acute cystitis Unknown Active [facility] 8 Diagnosis without hematuria / System N30.00(ICD-10) Repository Admitting Collapsed vertebra, AN MCDOWELL Active [facility] 8 Diagnosis NEC, lumbar region, System sequela of fracture Repository / M48.56XS(ICD-10) Admitting Encounter for issue JOSEMARISIOBHAN Active [facility] 8 Diagnosis of repeat System prescription / Repository Z76.0(ICD-10) Active Pain in left foot / DUSSEL, Active [facility] 8 M79.672(ICD-10) [facility] Other [facility] Repository Active Rash and other DUSSEL, [facility] 8 nonspecific skin [facility] Other eruption / [facility] R21(ICD-10) Repository Admitting Pain in left foot / Michael Servin Active [facility] 8 Diagnosis M79.672(ICD-10) System Repository Admitting Pruritus, Michael Servin [facility] 8 Diagnosis unspecified / System L29.9(ICD-10) Repository Admitting Pain in right foot Alexis Carlson [facility] 8 Diagnosis / M79.671(ICD-10) System Repository Admitting Puncture wound Irma Palma [facility] 8 Diagnosis without foreign System body, left foot, Repository init encntr / S91.332A(ICD-10) Admitting Contact with sharp Irma Palma [facility] 8 Diagnosis glass, initial System encounter / Repository W25.XXXA(ICD-10) Admitting Nausea with Bialecki, [facility] 8 Diagnosis vomiting, Philliph System unspecified / Repository R11.2(ICD-10) Admitting Acute gastritis Bialecki, [facility] 8 Diagnosis without bleeding / Philliph System K29.00(ICD-10) Repository Admitting Fall (on) (from) Kimmie Odell [facility] 8 Diagnosis other stairs and System steps, initial Repository encounter / W10.8XXA(ICD-10) Active 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 Active [facility] 8 polycythemia / Clinic Other D75.1(ICD-10) [facility] Repository Active Hypothyroidism, NO HORTON Active [facility] 8 unspecified / Clinic Other E03.9(ICD-10) [place] Repository Active Psoriasis, NO HORTON Active [facility] 8 unspecified / Clinic Other L40.9(ICD-10) [place] Repository Admitting Fall same lev from RICHARD BASILIO Active [facility] 8 Diagnosis slip/trip w/o System strike against Repository object, init / W01.0XXA(ICD-10) Admitting Dermatitis, Meche, Seven Active [facility] 8 Diagnosis unspecified / System L30.9(ICD-10) Repository Admitting Chronic pain Sahara [facility] 8 Diagnosis syndrome / [place] System G89.4(ICD-10) Repository Admitting salvage determiner (current) [place]on, [facility] 8 Diagnosis use of opiate Alexis System analgesic / Repository Z79.891(ICD-10) Admitting [facility] depressive [facility] Diagnosis disorder, single Alexis System episode, mild / Repository F32.0(ICD-10) Active Other NO HORTON Active [facility] 8 intervertebral disc Clinic Other degeneration, [place] lumbar region / Repository M51.36(ICD-10) Active Anxiety disorder, NO HORTON Active [facility] 8 unspecified / Clinic Other F41.9(ICD-10) [place] Repository Active Other pulmonary NO HORTON Active [facility] 8 embolism without Clinic Other acute cor pulmonale [place] / I26.99(ICD-10) Repository Active Personal history of NO HORTON Active [facility] 8 other venous Clinic Other thrombosis and [place] embolism / Repository 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 / Clinic Other D68.59(ICD-10) [place] Repository Active Personal history of NO HOROTN Active [facility] 8 pulmonary embolism Clinic Other / Z86.711(ICD-10) [place] Repository Active Elevated NO HORTON Active [facility] 8 blood-pressure Clinic Other reading, without [place] diagnosis of Repository hypertension / R03.0(ICD-10) Active Disorder of bone, NO HORTON Active [facility] 8 unspecified / Clinic Other M89.9(ICD-10) [facility] Repository Active Disorder of NO HORTON Active [facility] 8 cartilage, Clinic Other unspecified / [place] M94.9(ICD-10) Repository Admitting Other pulmonary Unknown Active [facility] [email or web address] 8 Diagnosis embolism without System acute cor pulmonale Repository / I26.99(ICD-10) Admitting Shortness of breath Unknown Active [facility] 8 Diagnosis / R06.02(ICD-10) System Repository Admitting Sprain of oth parts JOCELYNN CANCINO Active [facility] [email or web address] 8 Diagnosis of lumbar spine and System pelvis, init encntr Repository / S33.8XXA(ICD-10) Admitting Fall (on) (from) JOCELYNN CANCINO Active [facility] [email or web address] 8 Diagnosis unspecified stairs System and steps, init Repository encntr / W10.9XXA(ICD-10) Admitting Lumbago with Bescherer, Active [facility] 8 Diagnosis sciatica, left side [facility] System / M54.42(ICD-10) Repository Admitting Lumbago with Bescherer, Active [facility] 8 Diagnosis sciatica, right [facility] System side / Repository M54.41(ICD-10) Active Vomiting, REESE, ROSITA Active [facility] 8 unspecified / [facility] Clinic Other R11.10(ICD-10) [place] Repository Active Diarrhea, REESE, ROSITA Active [facility] 8 unspecified / [facility] Clinic Other R19.7(ICD-10) [place] Repository Active Illness, REODICA, DEACON Active [facility] 8 unspecified / [facility] Other R69(ICD-10) [place] Repository Final POLYNEUROPATHY, FEDE ZAVALA 8 Diagnosis UNSPECIFIED / [facility] ([facility] G62.9(ICD-10) Hospital Repository Final LOW BACK PAIN / FEDE ZAVALA Diagnosis M54.5(ICD-10) [facility] Hospital Repository Final RADICULOPATHY, FEDE ZAVALA 8 Diagnosis LUMBAR REGION / [facility] ([facility]) M54.16(ICD-10) Hospital Repository Final MYALGIA / FEDE ZAVALA Diagnosis M79.1(ICD-10) [facility] Hospital Repository 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 ADDIE TRAN Active [facility] 8 Diagnosis CURRENT DRUG Hospital THERAPY / Repository Z79.899(ICD-10) Active LOW BACK PAIN / ADDIE TRAN Active [facility] 8 M54.5(ICD-10) Hospital Repository Principle LOW BACK PAIN / ADDIE TRAN Active [facility] 8 Diagnosis M54.5(ICD-10) Hospital Repository Secondary ESSENTIAL PRIMARY ADDIE TRAN Active [facility] 8 Diagnosis HYPERTENSION / Hospital I10(ICD-10) Repository Secondary ANXIETY DISORDER ADDIE TRAN Active [facility] 8 Diagnosis UNSPECIFIED / Hospital F41.9(ICD-10) Repository Admitting Opioid abuse, Unknown Active [facility] 8 Diagnosis uncomplicated / System F11.10(ICD-10) Repository Admitting Intervertebral disc Unknown Active [facility] 8 Diagnosis disorders w System radiculopathy, Repository lumbar region / M51.16(ICD-10) Active Xerosis cutis / KENA ARSHAD [facility] 8 L85.3(ICD-10) Clinic Other [place] Repository Active Unknown / NA [facility] UNK(Unknown) Clinic Other [place] Repository Secondary UNSPECIFIED FALL YULI ROSE [facility] 8 Diagnosis INITIAL ENCOUNTER / Hospital W19.XXXA(ICD-10) Repository Secondary SCOLIOSIS YULI ROSE [facility] 8 Diagnosis UNSPECIFIED / Hospital M41.9(ICD-10) Repository Secondary OTH IV DISC DEGEN YULI ROSE [facility] 8 Diagnosis LUMBAR REGION / Hospital M51.36(ICD-10) Repository Active Dermatitis, REESE, ROSITA [facility] 7 unspecified / [facility] Clinic Other L30.9(ICD-10) [place] Repository Admitting Sacrococcygeal Dacek, Yaa Active [facility] 7 Diagnosis disorders, not System elsewhere Repository classified / M53.3(ICD-10) Active Low back pain / IRMA BERNSTEIN [facility] 7 M54.5(ICD-10) (RES) Clinic Other [place] Repository Active Other chronic pain IRMA BERNSTE[facility] 7 / G89.29(ICD-10) (RES) Clinic Other [place] Repository Active DORSALGIA CAM MONREAL [facility] 8 UNSPECIFIED / A Hospital M54.9(ICD-10) Repository Principle STRAIN MUSC FASC CAM MONREAL [facility] 8 Diagnosis TENDON LW BACK INT A Hospital / S39.012A(ICD-10) Repository Secondary DORSALGIA CAM MONREAL [facility] 8 Diagnosis UNSPECIFIED / A Hospital M54.9(ICD-10) Repository Admitting LOW BACK PAIN / EBFEDE AMBROSIO 7 Diagnosis M54.5(ICD-10) [facility] Repository Final LUMBAGO WITH FEDE STEVENS 7 Diagnosis SCIATICA, [facility] (Discharge) UNSPECIFIED SIDE / Hospital M54.40(ICD-10) Repository Final UNSPECIFIED FEDE STEVENS 7 Diagnosis OSTEOARTHRITIS, [facility] (Discharge) UNSPECIFIED SITE / Hospital M19.90(ICD-10) Repository Final SCOLIOSIS, FEDE STEVENS 7 Diagnosis UNSPECIFIED / [facility] (Discharge) M41.9(ICD-10) Hospital Repository Final ESSENTIAL (PRIMARY) FEDE STEVENS 7 Diagnosis HYPERTENSION / [facility] (Discharge) I10(ICD-10) Hospital Repository Final MAJOR DEPRESSIVE FEDE STEVENS 7 Diagnosis DISORDER, SINGLE [facility] (Discharge) EPISODE, Hospital UNSPECIFIED / Repository F32.9(ICD-10) PROCEDURES PROCEDURES No Procedure Records FoundRESULTS RESULTS EMERGENCY DEPARTMENT Observed: 07/13/2018 Status: F Source: ROSE SUMMARY 5:24 PM [facility] Medical Records Department [address] [place] [address] Emergency Department Summary 07/13/18 1302 MR#: [id number] Acct: [id number] Name: REGINA PEREIRA Rep #: [id number] : 1950 67 From: Kimmie Miller MD PCP: Care Physician, No Primary Status: DEP ER - ER Visit Summary Date of Service: 07/13/18 Chief Complaint: chronic back pain History of Present Illness: The patient is a 67 F with history of chronic back pain from compression fractures, scoliosis and degenerative joint disease who is in pain management with Dr. Juarez, presents for continued chronic back pain. Patient has no change but states that the 3 Percocets a day and the injections she is getting in pain management are not adequate. She was seen yesterday in the emergency department for the same complaint and received Toradol, which she states did nothing for her. She denies any bowel or bladder incontinence or retention. She denies any weakness in her legs or inability to ambulate at her baseline. No other complaints other than looking for pain relief for her chronic back pain. Physical Examination: Patient is well-nourished well-developed, BMI of 35, sitting in a wheelchair. Afebrile and hemodynamically stable. Skin is warm and dry, no rash. Heart regular in rate and rhythm. No increased work of breathing. Moves all extremities. Test Results: [] Emergency Department Course and Treatment: Patient was offered and declined on opiate medication for her pain. I discussed with her that due to the opiate crisis, there are now [place] loss in place that prevent prescriptions of opiate medications for chronic pain, especially since she is already in pain management and has a single prescriber of her Percocet. I explained to patient that it would be a violation of law for me to provide her with opiates. I again offered her nonopiate pain medication, and she declined. I offered to call Dr. Juarez to see if we could come up with a plan for better pain control for the patient, and she asked me not to call him. Patient has no red flag symptoms concerning for acute spinal cord injury or compression. Patient is to follow-up with Dr. Juarez and declined any intervention from me since I would not give her opiates. Patient was discharged home. Treatment Plan: [] Disposition: [] Impression: chronic back pain This note was generated with [employer] dictation software. It may contain incorrect words, spelling, and punctuation that were not noted in review of the chart prior to signing ED Disposition - Plan for ED Patient: Chief Complaint: Back Referrals: Care Physician,No Primary [Primary Care Provider] - What to do if you have Problems For any increased pain, shortness of breath, bleeding, nausea or vomiting, chest pain, or any unexpected problems, contact your Primary Care Provider. Call [facility] ([phone]) or report to the closest Emergency Room. Call 911 if necessary. 07/13/18 1724 <Electronically signed by Kimmie Miller MD> Date Kimmie Miller MD Cosigner Signature (If Indicated): Date CC: No Primary Care Physician DISCHARGE INSTRUCTION Observed: 07/13/2018 Status: F Source: DIANNE 5:24 PM [facility] Medical Records Department [address] [place] [address] Discharge Instruction 07/13/18 1306 MR#: [id number] Acct: [id number] Name: REGINA PEREIRA Rep #: [id number] : 1950 67 From: Kimmie Miller MD PCP: Care Physician, No Primary Status: DEP ER ED Disposition - Plan for ED Patient: Chief Complaint: Back Instructions: ED Chronic Pain Management, ED Back Care Tips Referrals: Care Physician,No Primary [Primary Care Provider] - Kacy Juarez MD [STAFF PHYSICIAN] - As soon as possible What to do if you have Problems For any increased pain, shortness of breath, bleeding, nausea or vomiting, chest pain, or any unexpected problems, contact your Primary Care Provider. Call [facility] ([phone]) or report to the closest Emergency Room. Call 911 if necessary. 07/13/18 1724 <Electronically signed by Kimmie Miller MD> Date Kimmie Miller MD Cosigner Signature (If Indicated): Date CC: No Primary Care Physician URINALYSIS,MACRO Collected: 07/12/2018 Status: F Source: [facility] 1:07 PM SYSTEM REPOSITORY TYPE CODE TESTS RESULT OUT OF REFERENCE UNITS RANGE LAB APPUR Clear NA Appearance sl hazy LAB COLUR Lt. Yellow NA Color Yellow LAB USG 1.005-1.030 NA Specific Normal [place],Urine 1.010 LAB UPH 5.0-8.0 NA pH,Urine Normal 7.0 LAB ULUK Negative NA Leukocytes 2 + LAB UNIT Negative NA Nitrites NEG LAB UPRO Negative mg/dL Total Protein,Urine NEG LAB UGLU Negative mg/dL Glucose,Urine NORM LAB UKET Negative mg/dL Ketone,Urine NEG LAB UURO 0-1 mg/dL Urobilinogen NORM LAB UBIL Negative NA Bilirubin,Ur 1 LAB UBLD Negative {RBC}/uL Occult Blood,Ur NEG Performed By: #### UAMAC, UAMIC #### [facility] [address] [place] [address] URINALYSIS,MICROSCOPIC Collected: Status: F Source: [facility] 07/12/2018 1:07 PM HEALTH SYSTEM REPOSITORY TYPE CODE TESTS RESULT OUT OF REFERENCE UNITS RANGE LAB WBCU 0-5 /[HPF] WBC,Urine 11 - 25 LAB RBCU 0-2 /[HPF] RBC,Urine 0 - 2 LAB EPIU 3-5 /[HPF] Epithelial Cells 6 - 10 LAB ALICIA Negative NA Bacteria Few (1-5) Performed By: #### UAMAC, UAMIC #### [facility] [email or web address] [facility] [address] [place] [address] ED PROVIDER NOTE Observed: 07/12/2018 Status: F Source: [facility] [employer] 12:00 PM SYSTEM REPOSITORY I did not see nor participate in this patients care because she refused care from a PA. Patient requesting only to see the physician. Eusebia Max PA-C 07/12/18 1315 DISCHARGE INSTRUCTION Observed: 07/12/2018 Status: F Source: RO[place] 10:56 AM [facility]POS[facility] Medical Records Department [address] [place] [address] Discharge Instruction 07/12/18 1055 MR#: [id number] Acct: [id number] Name: PEREIRAREGINA Jose Rep #: [id number] : 1950 67 From: Mike Cota MD PCP: Care Physician, No Primary Status: PRE ER ED Disposition - Plan for ED Patient: Disposition: Home or Assisted Living Chief Complaint: Back Instructions: ED Neck Back Pain General Prescriptions: predniSONE tablet 40 mg PO DAILY #8 tab Hydrocortisone 1% Crm [Hytone] 1 applic TOPICAL BID #1 tube Referrals: Care Physician,No Primary [Primary Care Provider] - What to do if you have Problems For any increased pain, shortness of breath, bleeding, nausea or vomiting, chest pain, or any unexpected problems, contact your Primary Care Provider. Call [facility] ([phone]) or report to the closest Emergency Room. Call 911 if necessary. 07/12/18 1056 <Electronically signed by Mike Cota MD> Date Mike Cota MD Cosigner Signature (If Indicated): Date CC: No Primary Care Physician EMERGENCY DEPARTMENT Observed: 07/12/2018 Status: F Source: ROSE SUMMARY 10:55 AM [facility] Medical Records Department [address] [facility] [place] [address] Emergency Department Summary 07/12/18 1052 MR#: [id number] Acct: [id number] Name: REGINA PEREIRA Rep #: [id number] : 1950 67 From: Mike Cota MD PCP: Care Physician, No Primary Status: PRE ER - ER Visit Summary Date of Service: 07/12/18 Chief Complaint: Chronic back pain, psoriasis History of Present Illness: The patient is a 67 F who presents with her chronic back pain symptoms. She takes 3 Percocet a day from pain management. However, she states that this does not help. She has spoke with her pain management doctor, Dr. Juarez about changing her regimen but he has not done this. She states that she cannot sleep at night and nothing helps. She also complains of itching in her legs. She has a history of psoriasis. 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 Physical Examination: Vital signs reviewed. HEENT exam unremarkable. Heart is regular rate and rhythm without murmurs. Lungs are clear to auscultation. Abdomen is soft and nontender. Back exam is tender in the lumbar spine area. Extremities reveal no edema. Skin exam reveals psoriasis of the legs. Neurologic exam normal. Test Results: None performed Emergency Department Course and Treatment: Patient will be given a shot of Toradol. She requested either to Percocet or Dilaudid. However, I do not feel that giving this patient narcotics would be prudent at this time. I will give her prednisone as well. She will be given topical hydrocortisone cream as well. She will need to establish herself with a primary care physician. Treatment Plan: [] Disposition: Discharge Impression: Chronic back pain, psoriasis This note was generated with [employer] dictation software. It may contain incorrect words, spelling, and punctuation that were not noted in review of the chart prior to signing ED Disposition - Plan for ED Patient: Chief Complaint: Back Referrals: Care Physician,No Primary [Primary Care Provider] - What to do if you have Problems For any increased pain, shortness of breath, bleeding, nausea or vomiting, chest pain, or any unexpected problems, contact your Primary Care Provider. Call [facility] ([phone]) or report to the closest Emergency Room. Call 911 if necessary. 07/12/18 1055 <Electronically signed by Mike Cota MD> Date Mike Cota MD Cosigner Signature (If Indicated): Date CC: No Primary Care Physician EMERGENCY DEPARTMENT Observed: 07/05/2018 Status: F Source: [facility]SE SUMMARY 4:54 PM [facility] [place] REPOSITORY [facility] Medical Records Department [address] [place] [address] Emergency Department Summary 07/05/18 1138 MR#: [id number] Acct: [id number] Name: REGINA PEREIRA Rep #: [id number] : 1950 67 From: Hank Gonzalez MD PCP: Axel Physician, No Primary Status: DEP ER - ER Visit Summary Date of Service: 07/05/18 Chief Complaint: Back pain History of Present Illness: The patient is a 67 F with chronic back pain. She is in pain management. She uses 3 Percocets per day and they are not helping with her pain. She complains of increasing back pain. No interval changes or injuries. No new symptoms. No GI or symptoms. She also has bilateral lower extremity skin rashes and scaling. She has a history of eczema. She is requesting a prednisone prescription for this. She did have cellulitis recently but it has cleared up. No fevers or systemic symptoms. Physical Examination: Afebrile and vital signs unremarkable. Alert and oriented. No acute distress. Moving without any apparent difficulty or distress. Abdomen soft. Extremities unremarkable except for a scaly dry rash to her lower extremities. No erythema or warmth. Neurovascular intact in all extremities. Symmetric. Test Results: None indicated Emergency Department Course and Treatment: Patient will be treated with subcu Dilaudid and a prednisone burst therapy. She was advised to follow-up with pain management. Return for any new or worsening issues. Treatment Plan: As above Disposition: Discharge Impression: 1. Chronic back pain This note was generated with [employer] dictation software. It may contain incorrect words, spelling, and punctuation that were not noted in review of the chart prior to signing ED Disposition - Plan for ED Patient: Chief Complaint: Back Referrals: Care Physician,No Primary [Primary Care Provider] - What to do if you have Problems For any increased pain, shortness of breath, bleeding, nausea or vomiting, chest pain, or any unexpected problems, contact your Primary Care Provider. Call [facility] ([phone]) or report to the closest Emergency Room. Call 911 if necessary. 07/05/18 0447 <Electronically signed by Hank Gonzalez MD> Date Hank Gonzalez MD Cosigner Signature (If Indicated): Date CC: No Primary Care Physician DISCHARGE INSTRUCTION Observed: 07/05/2018 Status: F Source: DIANNE 4:54 PM [facility] [place] [facility]POS[facility]ORY [facility] Medical Records Department [address] [place] [address] Discharge Instruction 07/05/18 1143 MR#: [id number] Acct: [id number] Name: REGINA PEREIRA Rep #: [id number] : 1950 67 From: Hank Gonzalez MD PCP: Care Physician, No Primary Status: DEP ER ED Disposition - Plan for ED Patient: Chief Complaint: Back Instructions: ED Sprain Strain Lumbar Prescriptions: Prednisone 40 mg PO UD 5 Days #20 tab What to do if you have Problems For any increased pain, shortness of breath, bleeding, nausea or vomiting, chest pain, or any unexpected problems, contact your Primary Care Provider. Call [facility] ([phone]) or report to the closest Emergency Room. Call 911 if necessary. 07/05/18 7595 <Electronically signed by Hank Gonzalez MD> Date Hank Gonzalez MD Cosigner Signature (If Indicated): Date CC: No Primary Care Physician HEMOGRAM W/ AUTODIFF Collected: 06/30/2018 Status: F Source: [employer] 8:32 PM SYSTEM REPOSITORY TYPE CODE TESTS RESULT OUT OF REFERENCE UNITS RANGE LAB IWBC 3.6-10.7 10*3/uL WBC Normal 6.5 LAB RBC 3.80-5.20 10*6/uL Low RBC 3.34 LAB HGB 11.7-16.0 g/dL Low Hemoglobin 10.6 LAB HCT 35.0-47.0 % Low Hematocrit 32.1 LAB MCV 79.0-98.0 fL MCV Normal 96.1 LAB MCH 26.0-34.0 pg MCH Normal 31.8 LAB MCHC 32.0-36.0 % MCHC Normal 33.1 LAB RDW 11.5-14.5 % RDW High 15.8 LAB PLT 140-440 10*3/uL Platelet Normal 404 LAB MPV 7.4-10.4 fL Low MPV 6.4 LAB GRAN% 40.0-80.0 % Granulocytes Normal 69.4 LAB LYMP% 20.0-40.0 % Lymphocytes Normal 21.4 LAB MONO% 2.0-10.0 % Monocytes Normal 6.6 LAB EOS% 1.0-6.0 % Eosinophils Normal 2.0 LAB BAS% 0.0-2.0 % Basophils Normal 0.6 LAB ANC 1.8-7.0 10*3/uL Abs Normal Neutrophile Cnt 4.5 LAB ALC 1.0-4.3 10*3/uL Abs Lymph Cnt Normal 1.4 LAB AMC 0.0-0.8 10*3/uL Abs Monocyte Normal Cnt 0.4 LAB AEC 0.0-0.5 10*3/uL Abs Eosin Cnt Normal 0.1 LAB ABC 0.0-0.2 10*3/uL Abs Baso Cnt Normal 0.0 Performed By: #### MELISA BMP3 #### [facility] [address] [place] [id number] BASIC METABOLIC PANEL Collected: 06/30/2018 Status: F Source: [employer] 8:32 PM SYSTEM REPOSITORY TYPE CODE TESTS RESULT OUT OF RANGE REFERENCE UNITS LAB NA3 137-145 mmol/L Low Sodium 136 LAB K3 3.5-5.1 mmol/L Normal Potassium 4.0 LAB CL3 98-107 mmol/L Chloride Normal 105 LAB CO23 22-30 mmol/L Carbon Normal Dioxide 22 LAB ANIN3 NA Anion Gap 9 LAB GLUC3 70-100 mg/dL Glucose Normal 93 LAB BUN3 7-20 mg/dL Urea Normal Nitrogen 11 LAB CRET3 0.52-1.25 mg/dL Normal Creatinine 0.94 LAB GF3BR >60 mL/min eGFR > 60.0 LAB GF3WR >60 mL/min eGFR OTHER 59.3 Result Comment: Source- MDRD equation with creatinine calibration to IDMS(NKDEP) eGFR not recommended for drug dose adjustment LAB CA3 8.4-10.4 mg/dL Normal Calcium 9.0 Performed By: #### HEMDF, BMP3 #### [facility] [address] [place] [phone] ED PROVIDER NOTE Observed: 06/30/2018 Status: F Source: [employer] 6:13 PM SYSTEM REPOSITORY Emergency DepartmentEncounter [facility] EM[facility]Y [facility] Patient: Regina Pereira : 1950 Date of Evaluation: 06/30/2018 ED DOMONIQUE Provider: MARVIN Underwood CNP Chief Complaint Chief Complaint Patient presents with ? Leg Pain pt states i have cellulitis on my right leg pt being tx'ed with abx. EKUK Regina Pereira is a 67 y.o. @SEX@ who presents to the emergency department for evaluation of worsening right lower extremity cellulitis. She states that she has been on antibiotics for the last 4-5 days. She states she is taking her medication as prescribed. She denies fevers, chills, chest pain, SOB, abd pain, n/v/d, dysuria, hematuria. She states that she redness and swelling have started to improve but that the pain is worsening. ROS: Review of Systems At least 6 systemsreviewed and otherwise acutely negative except as in the EKUK. Past History Past Medical History: Diagnosis Date ? Chronic back pain ? DDD (degenerative disc disease), lumbar ? Depression ? Hx of blood clots ? Hypertension ? Scoliosis ? Thyroid disease Past Surgical History: Procedure Laterality Date ? SECTION ? HYSTERECTOMY Social History Social History ? Marital status: Spouse name: N/A ? Number of children: N/A ? Years of education: N/A Social History Main Topics ? Smoking status: Former Smoker ? Smokeless tobacco: Never Used ? Alcohol use No ? Drug use: No ? Sexual activity: Not on file Other Topics Concern ? Not on file Social History Narrative ? No narrative on file Medications/Allergies Discharge Medication List as of 06/30/2018 9:56 PM CONTINUE these medications which have NOT CHANGED Details sulfamethoxazole-trimethoprim (BACTRIM DS) 800-160 MG per tablet Take 1 tablet by mouth 2 times daily for 7 days, Disp-14 tablet, R-0Print cephALEXin (KEFLEX) 500 MG capsule Take 1 capsule by mouth 3 times daily for 7 days, Disp-21 capsule, R-0Print gabapentin (NEURONTIN) 100 MG capsule Take 1 capsule by mouth 3 times daily as needed (severe anxiety. may give with hydroxizine) for up to 30 days.., Disp-90 capsule, R-3Normal DULoxetine (CYMBALTA) 30 MG extended release capsule Take 1 capsule by mouth daily, Disp-30 capsule, R-3Normal lidocaine (LIDODERM) 5 % Place 3 patches onto the skin daily 12 hours on, 12 hours off., Disp-30 patch, R-1Normal folic acid (FOLVITE) 1 MG tablet Take 1 tablet by mouth daily, Disp-30 tablet, R-3Normal dicyclomine (BENTYL) 20 MG tablet Take 1 tablet by mouth every 6 hours as needed (abdominal cramps), Disp-120 tablet, R-3Normal thiamine 100 MG tablet Take 1 tablet by mouth daily, Disp- 30 tablet, R-3Normal rivaroxaban (XARELTO) 20 MG TABS tablet Take 20 mg by mouthHistorical Med tiZANidine (ZANAFLEX) 4 MG tablet Take 1 tablet by mouth every 8 hours as needed (pain), Disp-30 tablet, R-0Print lisinopril-hydrochlorothiazide (PRINZIDE;ZESTORETIC) 10-12.5 MG per tablet Take 1 tablet by mouthHistorical Med risperiDONE (RISPERDAL) 0.5 MG tablet Take 1 tablet by mouth 2 times daily, Disp-28 tablet, R-0Print sertraline (ZOLOFT) 100 MG tablet Take 1 tablet by mouth daily, Disp-14 tablet, R-0Print No Known Allergies Physical Exam ED Triage Vitals [06/30/18 191] BP Temp Temp Source Pulse Resp SpO2 Height Weight (!) 131/58 98.5 ?F (36.9 ?C) Oral 89 18 100 % -- -- Physical Exam Constitutional: She is oriented to person, place, and time. She appears well-developed and well-nourished. Non-toxic appearance. She does not have a sickly appearance. She does not appear ill. No distress. HENT: Head: Normocephalic and atraumatic. Mouth/Throat: Mucous membranes are not dry. No oral lesions. No trismus in the jaw. No uvula swelling. No oropharyngeal exudate, posterior oropharyngeal edema or posterior oropharyngeal erythema. Eyes: Pupils are equal, round, and reactive to light. Conjunctivae and EOM are normal. Right eye exhibits no discharge. Left eye exhibits no discharge. No scleral icterus. Neck: Normal range of motion. Neck supple. No JVD present. No tracheal tenderness present. No tracheal deviation present. No thyromegaly present. Cardiovascular: Normal rate, regular rhythm, S1 normal, S2 normal, normal heart sounds and intact distal pulses. Exam reveals no gallop, no S3, no S4, no distant heart sounds, no friction rub and no decreased pulses. No murmur heard. Pulses: Carotid pulses are 2+ on the right side, and 2+ on the left side. Radial pulses are 2+ on the right side, and 2+ on the left side. Femoral pulses are 2+ on the right side, and 2+ on the left side. Popliteal pulses are 2+ on the right side, and 2+ on the left side. Dorsalis pedis pulses are 2+ on the right side, and 2+ on the left side. Posterior tibial pulses are 2+ on the right side, and 2+ on the left side. Pulmonary/Chest: Effort normal and breath sounds normal. No accessory muscle usage or stridor. No respiratory distress. She has no decreased breath sounds. She has no wheezes. She has no rhonchi. She has no rales. She exhibits no tenderness. Abdominal: Soft. Bowel sounds are normal. She exhibits no distension, no pulsatile midline mass and no mass. There is no tenderness. There is no rigidity, no rebound, no guarding, no tenderness at McBurney's point and negative Amado's sign. No hernia. Musculoskeletal: Normal range of motion. She exhibits no edema. Lymphadenopathy: She has no cervical adenopathy. Neurological: She is alert and oriented to person, place, and time. GCS eye subscore is 4. GCS verbal subscore is 5. GCS motor subscore is 6. Skin: Skin is warm and dry. No rash noted. She is not diaphoretic. There is erythema (Right lower extremity from knee down to toes. ). No pallor. No warmth is noted of the right lower extremity. +2-3 pitting edema. Psychiatric: Her behavior is normal. Nursing note and vitals reviewed. Diagnostics Labs: Results for orders placed or performed during the hospital encounter of 06/30/18 Basic Metabolic Panel Result Value Ref Range Sodium 136 (L) 137 - 145 mmol/L Potassium 4.0 3.5 - 5.1 mmol/L Chloride 105 98 - 107 mmol/L CO2 22 22 - 30 mmol/L Anion Gap 9 NA Glucose 93 70 - 100 mg/dL BUN 11 7 - 20 mg/dL CREATININE 0.94 0.52 - 1.25 mg/dL eGFR >60.0 >60 mL/min EGFR IF NonAfrican Cymro 59.3 >60 mL/min Calcium 9.0 8.4 - 10.4 mg/dL Hemogram (CBC) w/Auto Diff Result Value Ref Range WBC 6.5 3.6 - 10.7 10*3/uL RBC 3.34 (L) 3.80 - 5.20 10*6/uL Hemoglobin 10.6 (L) 11.7 - 16.0 g/dL Hematocrit 32.1 (L) 35.0 - 47.0 % MCV 96.1 79.0 - 98.0 fL MCH 31.8 26.0 - 34.0 pg MCHC 33.1 32.0 - 36.0 % RDW 15.8 (H) 11.5 - 14.5 % Platelets 404 140 - 440 10*3/uL MPV 6.4 (L) 7.4 - 10.4 fL Granulocytes % 69.4 40.0 - 80.0 % Lymphocyte % 21.4 20.0 - 40.0 % Monocytes 6.6 2.0 - 10.0 % Eosinophils 2.0 1.0 - 6.0 % Basophils 0.6 0.0 - 2.0 % Absolute Neut # 4.5 1.8 - 7.0 10*3/uL Absolute Lymph # 1.4 1.0 - 4.3 10*3/uL Absolute Jackson # 0.4 0.0 - 0.8 10*3/uL Absolute Eos # 0.1 0.0 - 0.5 10*3/uL Absolute Baso # 0.0 0.0 - 0.2 10*3/uL Radiographs: No results found. ED Course and MDM In brief, Regina Pereira is a 67 y.o. female who presented to the emergency department with the above mentioned concerns. I reviewed the patients electronic medical record and found that the patient has been seen here several times in the last week for this same concern. Each time she has been offered admission to receive IV atbx but she declines this stating that she thinks the infection is improving. She states she wants to wait a few more days to see if it turns the corner. When I asked her what her reason is for today's visit is she states its because her pain is worse. I noted that per nursing notes patient was given a dose of percocet on a previous visit for this same concern and then when they went to reevaluate and discharge the patient she had already left without notifying staff. I also reviewed her oars report and found that she had a prescription for 84 percocet filled on 06/15/18. It states that this was to be a 28 day supply. The patient states her pain has been so severe that she has been taking double what she is supposed to be taking. She states she would like me to give her a script for narcotics. I explained to here that I would not be doing this today. We discussed her frequent visitation for this same concern and the fact that she has been offered admission several times to provider her with IV atbx and pain control in hospital but she continually declines this. I am offering the patient admission again today to receive IV atbx and pain control. She again states that she wants to wait and see if this improves on its own. She feels it is improving. I explained to the patient that I will not provide her with any narcotic pain medication in the emergency room based on her inappropriate use of her pain medications and her visits in which she eloped as soon as she received a narcotic medication in the emergency room. She is not happy with this but does communicate understanding. Patient was discharged home with her and instructed to follow up if she does feel this is worsening and feels she is ready for admission. ED Medication Orders None Final Impression 1. Cellulitis of right lower extremity DISPOSITION Decision To Discharge 06/30/2018 09:41:36 PM Patient seen independently with an Emergency Medicine attending available for supervision. (Please note that portions of this note may have been completed with a voice recognition program. Efforts were made to edit the dictations but occasionally words aremis-transcribed.) MARVIN Underwood CNP [employer] MARVIN Mercer CNP 07/01/18 1733 CBC Collected: 06/29/2018 Status: F Source: [facility] 6:35 PM [facility] REPOSITORY TYPE CODE TESTS RESULT OUT OF REFERENCE UNITS RANGE LAB WBC(LOINC) 4.50-10.80 10 3/mcL WBC 7.10 LAB RBCCT(LOINC 4.10-5.30 10 6/mcL ) Low RBC 3.42 LAB HGB(LOINC) 12.0-16.0 G/dL Low Hgb 10.9 LAB HCT(LOINC) 34.0-46.0 % Low Hct 33.0 LAB MCV(LOINC) 80.0-99.0 fL MCV 96.6 LAB MCH(LOINC) 27.0-33.0 pg MCH 31.9 LAB MCHC(LOINC) 32.0-36.0 G/dL MCHC 33.1 LAB RDW(LOINC) 11.5-15.5 % High RDW 15.6 LAB PLT(LOINC) 150-450 10 3/mcL Platelet 406 LAB MPV(LOINC) 6.6-10.5 fL Low MPV 6.2 Performed By: #### CBC, BMP, ADIFF, GFR, ANEU #### [address] [address] .AUTO DIFF Collected: 06/29/2018 Status: F Source: [facility] 6:35 [facility] REPOSITORY TYPE CODE TESTS RESULT OUT OF REFERENCE UNITS RANGE LAB LUIS(LOINC) 50.0-75.0 % Neutrophil % 70.9 LAB LYM(LOINC) 20.0-40.0 % Lymphocyte % 21.0 LAB MON(LOINC) 2.0-13.0 % Monocyte % 5.9 LAB EO(LOINC) 0.0-6.0 % Eosinophil % 1.7 LAB BAS(LOINC) 0.0-2.5 % Basophil % 0.5 LAB ABLYM(LOIN 0.90-4.32 10 3/mcL C) Lymphocyte, 1.50 Absolute LAB LAVINIA(LOINC 0.09-1.40 10 3/mcL ) Monocyte, 0.40 Absolute LAB AEOS(LOINC 0.00-0.65 10 3/mcL ) Eosinophil, 0.10 Absolute LAB ABAS(LOINC 0.00-0.27 10 3/mcL ) Basophil, 0.00 Absolute Performed By: #### CBC, BMP, ADIFF, GFR, ANEU #### [address] [address] .NEUABS Collected: 06/29/2018 Status: F Source: [facility] 6:35 PM [facility] REPOSITORY TYPE CODE TESTS RESULT OUT OF REFERENCE UNITS RANGE LAB ANEU(LOINC) 2.25-8.10 10 3/mcL Neutrophil, 5.00 Absolute Performed By: #### CBC, BMP, ADIFF, GFR, ANEU #### [address] [address] BMP Collected: 06/29/2018 Status: F Source: [facility] 6:35 PM [facility] REPOSITORY TYPE CODE TESTS RESULT OUT OF REFERENCE UNITS RANGE LAB GLU(LOINC) 82-115 mg/dL Glucose Level 90 LAB NA(LOINC) 136-145 mEq/L Sodium Level 139 LAB K(LOINC) 3.5-5.0 mEq/L Potassium Level 3.7 LAB CL(LOINC) 98-110 mEq/L Chloride 106 LAB CO2(LOINC) 22-32 mEq/L CO2 26 LAB EBAL(LOINC 4.0-15.0 mEq/L ) Electrolyte Balance 7.0 LAB BUN(LOINC) 8.0-22.0 mg/dL BUN 10.0 LAB CRE(LOINC) 0.50-1.20 mg/dL Creatinine Lvl (s) 0.88 LAB BC(LOINC) 10.0-22.0 ratio BUN/Creatinine 11.4 Ratio LAB CA(LOINC) 8.4-10.1 mg/dL Calcium Lvl 8.8 Performed By: #### CBC, BMP, ADIFF, GFR, ANEU #### [address] [address] .GFR Collected: 06/29/2018 Status: F Source: [facility] 6:35 [facility] REPOSITORY TYPE CODE TESTS RESULT OUT OF REFERENCE UNITS RANGE LAB GFRAA(LOINC ml/min/1.73 ) sqm GFR >60 Cymro Result Comment: GFR Population mean for , Non- Americans Ages 20-29 = 116 mL/min/1.73 sq.m. Ages 30-39 = 107 mL/min/1.73 sq.m. Ages 40-49 = 99 mL/min/1.73 sq.m. Ages 50-59 = 93 mL/min/1.73 sq.m. Ages 60-69 = 85 mL/min/1.73 sq.m. Ages 70+ = 75 mL/min/1.73 sq.m. Chronic Kidney Disease: Less than 60 mL/min/1.73 square meters End Stage Renal Disease: Less than 15 mL/min/1.73 square meters LAB GFRNO(LOINC) ml/min/1.73sqm GFR Non- >60 Result Comment: GFR Population mean for , Non- Americans Ages 20-29 = 116 mL/min/1.73 sq.m. Ages 30-39 = 107 mL/min/1.73 sq.m. Ages 40-49 = 99 mL/min/1.73 sq.m. Ages 50-59 = 93 mL/min/1.73 sq.m. Ages 60-69 = 85 mL/min/1.73 sq.m. Ages 70+ = 75 mL/min/1.73 sq.m. Chronic Kidney Disease: Less than 60 mL/min/1.73 square meters End Stage Renal Disease: Less than 15 mL/min/1.73 square meters Performed By: #### CBC, BMP, ADIFF, GFR, ANEU #### [place] [address] ED PROVIDER NOTE Observed: 06/28/2018 Status: F Source: [employer] 3:45 PM SYSTEM REPOSITORY Emergency Department Encounter [facility] EMERGENCY DEPT Patient: Regina Pereira : 1950 Date of Evaluation: 06/28/2018 ED Provider: Michael Gilbert MD Chief Complaint No chief complaint on file. EKUK Regina Pereira is a 67 y.o. female who presents to the emergency department complaining of Worsening right lower extremity cellulitis, she is been seen multiple times for this over the past week, she is been on Keflex for the past 3 days, denies any fevers, she feels like the redness is a deeper red on her foot, it has not spread beyond the demarcated area from a few days ago. Nothing makes it better, worse with palpation, she is on chronic pain medication. ROS: At least 10 systems reviewed and otherwise acutely negative except as in the EKUK. Past History Past Medical History: Diagnosis Date ? Chronic back pain ? DDD (degenerative disc disease), lumbar ? Depression ? Hx of blood clots ? Hypertension ? Scoliosis ? Thyroid disease Past Surgical History: Procedure Laterality Date ? SECTION ? HYSTERECTOMY Social History Social History ? Marital status: Spouse name: N/A ? Number of children: N/A ? Years of education: N/A Social History Main Topics ? Smoking status: Former Smoker ? Smokeless tobacco: Never Used ? Alcohol use No ? Drug use: No ? Sexual activity: Not on file Other Topics Concern ? Not on file Social History Narrative ? No narrative on file Medications/Allergies Previous Medications CEPHALEXIN (KEFLEX) 500 MG CAPSULE Take 1 capsule by mouth 3 times daily for 7 days DICYCLOMINE (BENTYL) 20 MG TABLET Take 1 tablet by mouth every 6 hours as needed (abdominal cramps) DULOXETINE (CYMBALTA) 30 MG EXTENDED RELEASE CAPSULE Take 1 capsule by mouth daily FOLIC ACID (FOLVITE) 1 MG TABLET Take 1 tablet by mouth daily GABAPENTIN (NEURONTIN) 100 MG CAPSULE Take 1 capsule by mouth 3 times daily as needed (severe anxiety. may give with hydroxizine) for up to 30 days.. LIDOCAINE (LIDODERM) 5 % Place 3 patches onto the skin daily 12 hours on, 12 hours off. LISINOPRIL-HYDROCHLOROTHIAZIDE (PRINZIDE;ZESTORETIC) 10-12.5 MG PER TABLET Take 1 tablet by mouth RISPERIDONE (RISPERDAL) 0.5 MG TABLET Take 1 tablet by mouth 2 times daily RIVAROXABAN (XARELTO) 20 MG TABS TABLET Take 20 mg by mouth SERTRALINE (ZOLOFT) 100 MG TABLET Take 1 tablet by mouth daily THIAMINE 100 MG TABLET Take 1 tablet by mouth daily TIZANIDINE (ZANAFLEX) 4 MG TABLET Take 1 tablet by mouth every 8 hours as needed (pain) No Known Allergies Physical Exam ED Triage Vitals [06/28/18 1553] BP Temp Temp src Pulse Resp SpO2 Height Weight -- -- -- -- -- -- -- 250 lb (113.4 kg) GENERAL: The patient appears nourished and normally developed. Vital signs as documented. EYES: Head exam is unremarkable. No scleral icterus or orbital trauma noted. HEENT: Mucous membranes moist. Nares patent without copious rhinorrhea. No enlarged lymphadenopathy. LUNGS: Lungs are clear to auscultation, without any respiratory distress. CARDIAC: Rhythm is regular. No dysrythmias or murmurs. ABDOMEN: Nontender with no obvious masses, and no peritoneal signs. EXTREMITIES: Erythema, no significant warmth to the right lower extremity, 3+ pitting edema SKIN: Good color, with no significant rashes. No pallor. NEURO: No obvious neurological deficits, normal sensation and strength bilaterally. patient able to ambulate. Diagnostics Labs: No results found for this visit on 06/28/18. Radiographs: No results found. Procedures/EKG: None ED Course and MDM In brief, Regina Pereira is a 67 y.o. female who presented to the emergency department With right lower extremity cellulitis, she is already on Keflex, will add Bactrim, she did ask for pain medication as well, she is on Percocet which she had a recent prescription for. I gave her 2 Percocet here. Follow up with PCP in 2-3 days for recheck. I did offer to admit the patient for IV antibiotics, patient declined and would rather trial of outpatient antibiotics. I think this is reasonable, she is afebrile and looks well and it has not extended beyond the demarcated area from a few days ago Final Impression Cellulitis DISPOSITION admit Comment: Please note this report has been produced using speech recognition software and may contain errors related to that system including errors in grammar, punctuation, and spelling, as well as words and phrases that may be inappropriate. If there are any questions or concerns please feel free to contact the dictating provider for clarification. Michael Gilbert MD Acute Care [facility] Michael Gilbert MD 06/28/18 1623 ED PROVIDER NOTE Observed: 06/28/2018 Status: F Source: [employer] 3:45 PM SYSTEM REPOSITORY This is a 67 year-old patient with complaint of RIGHT lower leg redness and pain. [facility], started antibiotics. Patient states that it is not getting any better. Exam shows-circumstantial erythema to the RIGHT lower leg. Plan?I will order labs, start vancomycin and Zosyn for failed outpatient cellulitis. I triaged this patient as a provider to start this patient's care. Please see the note of the ER provider who is managing this patient's care. Yaa Gutiérrez, MRAVIN - 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 06/28/18 1553 ED PROVIDER NOTE Observed: 06/26/2018 Status: F Source: [employer] 7:28 PM SYSTEM REPOSITORY [facility] EMERGENCY DEPT eMERGENCY dEPARTMENT eNCOUnter Pt Name: Regina Pereira Birthdate 1950 Date of evaluation: 06/26/2018 Provider: Ginger Yan PA-C CHIEF COMPLAINT Chief Complaint Patient presents with ? Leg Swelling HISTORY OF PRESENT ILLNESS (Location/Symptom, Timing/Onset, Context/Setting, Quality, Duration, Modifying Factors, Severity) Note limiting factors. HPI Regina Pereira is a 67 y.o. female [facility] with complaint of Leg swelling. Patient states that she was recently hospitalized for kidney failure and was discharged on Friday and ever since has had worsening swelling to her bilateral legs although worsen on the RIGHT leg. She also mentions noticing redness and warmth to her RIGHT lower leg starting yesterday. She complains of a burning pain in the area of her RIGHT lower leg. Denies any injury. No paresthesias or weakness. She states that she went to [facility] today for evaluation and they did blood work and an ultrasound of both of her legs which were negative for a blood clot. She states that she was discharged with a prescription for Keflex for 7 days and she took one pill and states it is just getting worse. She denies any fevers or chills. No chest pain or shortness of breath. No paresthesias or weakness. No abdominal pain, nausea, vomiting or diarrhea. No worsening or alleviating factors. She does have a history of PE and she is on Eliquis. Denies any recent surgery or prolonged immobilization aside from her hospitalization. Patient has a past medical history significant for history of PE on blood thinners, chronic back pain, thyroid disease, depression, hypertension. Patient is a former smoker, denies IV or illicit drug abuse. Nursing Notes were reviewed and confirmed as correct. REVIEW OF SYSTEMS (2+ for level 4; 10+ for level5) Review of Systems This patient's personal and family past medical history as stated in HPI and otherwise negative. ROS as stated in HPI otherwise negative, a total of 10 systems reviewed. PAST MEDICAL HISTORY Past Medical History: Diagnosis Date ? Chronic back pain ? DDD (degenerative disc disease), lumbar ? Depression ? Hx of blood clots ? Hypertension ? Scoliosis ? Thyroid disease SURGICAL HISTORY Past Surgical History: Procedure Laterality Date ? SECTION ? HYSTERECTOMY CURRENTMEDICATIONS Discharge Medication List as of 06/26/2018 9:03 PM CONTINUE these medications which have NOT CHANGED Details cephALEXin (KEFLEX) 500 MG capsule Take 1 capsule by mouth 3 times daily for 7 days, Disp-21 capsule, R-0Print gabapentin (NEURONTIN) 100 MG capsule Take 1 capsule by mouth 3 times daily as needed (severe anxiety. may give with hydroxizine) for up to 30 days.., Disp-90 capsule, R-3Normal DULoxetine (CYMBALTA) 30 MG extended release capsule Take 1 capsule by mouth daily, Disp-30 capsule, R-3Normal lidocaine (LIDODERM) 5 % Place 3 patches onto the skin daily 12 hours on, 12 hours off., Disp-30 patch, R-1Normal folic acid (FOLVITE) 1 MG tablet Take 1 tablet by mouth daily, Disp-30 tablet, R-3Normal dicyclomine (BENTYL) 20 MG tablet Take 1 tablet by mouth every 6 hours as needed (abdominal cramps), Disp-120 tablet, R-3Normal thiamine 100 MG tablet Take 1 tablet by mouth daily, Disp- 30 tablet, R-3Normal rivaroxaban (XARELTO) 20 MG TABS tablet Take 20 mg by mouthHistorical Med tiZANidine (ZANAFLEX) 4 MG tablet Take 1 tablet by mouth every 8 hours as needed (pain), Disp-30 tablet, R-0Print lisinopril-hydrochlorothiazide (PRINZIDE;ZESTORETIC) 10-12.5 MG per tablet Take 1 tablet by mouthHistorical Med risperiDONE (RISPERDAL) 0.5 MG tablet Take 1 tablet by mouth 2 times daily, Disp-28 tablet, R-0Print sertraline (ZOLOFT) 100 MG tablet Take 1 tablet by mouth daily, Disp-14 tablet, R-0Print ALLERGIES Patient has no known allergies. FAMILY HISTORY Family History Problem Relation Age of Onset ? Heart Disease Mother ? Hypertension Mother ? Cancer Mother ? Heart Disease Father ? Hypertension Father SOCIAL HISTORY Social History Social History ? Marital status: Spouse name: N/A ? Number of children: N/A ? Years of education: N/A Social History Main Topics ? Smoking status: Former Smoker ? Smokeless tobacco: Never Used ? Alcohol use No ? Drug use: No ? Sexual activity: Not on file Other Topics Concern ? Not on file Social History Narrative ? No narrative on file SCREENINGS PHYSICAL EXAM (up to 7 for level 4, 8 or more for level 5) ED Triage Vitals [06/26/182009] BP Temp Temp src Pulse Resp SpO2 Height Weight 130/78 97.9 ?F (36.6 ?C) -- 70 18 98 % 5' 4 (1.626 m) 250 lb (113.4 kg) Physical Exam Constitutional: Patient is AAO x3, appears to be well-nourished and hydrated.Patient is resting comfortably in chair. No acute distress. Nontoxic in appearance. Obese. Vitals as stated above. Psych: Appropriate mood and affect forchief complaint. Integumentary: Erythema with overlying warmth to the RIGHT lower extremity extending to the mid tibia. No lymphangitis. No fluctuance or induration. No spontaneous drainage. Neuro: Patient has sensation over the affected area as well as distally, cranial nerves IIthrough XII are grossly intact, cerebella function is normal, no gross sensory or motor deficit. Vascular: Good ulnar and radial pulses bilaterally. Good dorsal pedis and posterior tibialpulses bilaterally.Capillary refill is less than 2 seconds. Cardiac: Regular rhythm and rate, S1-S2 are both audible. No murmurs rubs or gallops. No JVD. Respiratory: Lungs clear to auscultation in all kilgore. No tachypnea. Patient speaks in full sentences. No accessory muscle use. Musculoskeletal: Muscle grading in bilateral upper and lower extremities is 5/5. No bony tenderness. No joint warmth, swelling or erythema. Neurovascularly intact. Patient ambulates without difficulty. GI:Abdomen is soft, non-tender, no palpable masses, no audible bruit, no pulsatile masses. There is no organomegaly. Patient has positive bowel sounds in all areas. No rebound tenderness, rigidity, or guarding. No pain atMcBurney's point, negative Amado's sign. : No CVA tenderness or suprapubic pain. Extremities: Skin is warm and dry. 2+ pitting edema to the bilateral lower extremities. Homans sign is negative and there is no pain along the deepvenous system. HEENT: Head appears atraumatic and normocephalic. Trachea midline. Neck is supple. Throat, oral and nasal mucosa is moist and pink. Uvula and trachea are midline. Eyes: Conjunctivae are clear. Fullextraocular eye movements intact. PERRL. LABS: Labs Reviewed - No data to display Radiographs: Xr Chest Standard (2 Vw) Result Date: 06/26/2018 Patient Name: REGINA PEREIRA ---Diagnostic Radiology--- Exam Date/Time 06/26/2018 08:11:28 EST Exam CR Chest PA/LAT Ordering Physician MD NAYAK VIJAY Accession Number [id number] CPT4 Codes 30447 () Reason For Exam leg swelling Report CHEST: CLINICAL INDICATION: Leg swelling TECHNIQUE: PA and Lateral COMPARISON: 06/18/2018 FINDINGS: No focal consolidation or pulmonary edema. No pleural effusions or pneumothorax. The cardiac and mediastinal silhouettes are normal. The osseous structures are unremarkable. IMPRESSION: No focal consolidation or pulmonary edema. Report Dictated on --- Final --- Dictated: 06/26/2018 8:18 am Dictating Physician: MD FUNES KEVIN Signed Date and Time: 06/26/2018 8:19 am Signed by: MD FUNES KEVIN Transcribed Date and Time: 06/26/2018 8:18 Vl Dup Lower Extremity Venous Bilateral Result Date: 06/26/2018 [facility] Lower Extremity Venous Duplex Report Patient Name: Regina Pereira : 1950 Study Date: 06/26/2018 (67yrs) Age: 67 Account: [id number] Gender: F Loc: 3EGR BP: Ordering: Vj Nayak Technologist: Ordering Physician: Vj Nayak Settlement Clerk: Cathie Connolly RDNV, RVT Interpreting Physician: Frank Ohara Location: [facility] Emergency Dept at [place] INDICATIONS: Erythema lower RT calf x 2 days Swelling of limb both calves R>L x 2 days CONCLUSIONS 1. Normal venous duplex 2. Limited study below knee on the right IMPRESSIONS: These findings are negative for deep or superficial vein thrombosis in the bilateral lower extremities. HISTORY: Deep vein thrombosis. Risk factors: Hypertension. Obese. Renal disease. STUDY DATA: Complete lower extremity venous duplex evaluation. Birthdate: Patient birthdate: 1950. Age: Patient is 67 yr old. Sex: Gender: female. Ethnicity: Ethnicity: white. Doppler flow study including spectral analysis, color and kahn scale imaging. Patient status: Emergency department. Procedure: A vascular evaluation was performed. The images were obtained using a 3Jam Aplio vascular ultrasound machine. VENOUS FLOW AND IMAGING: + + + + + !Location !Overall !Flow properties !Comments ! + + + + + !Right common !Patent !Normal phasicity; !Patient resisting ! !femoral ! !spontaneous; normal !compressions. ! ! ! !augmentation; ! ! ! ! !compressible ! ! + + + + + !Right !Patent !Compressible !Patient resisting ! !saphenofemoral ! ! !compressions. ! !junction ! ! ! ! + + + + + !Right profunda !Patent !Normal phasicity; ! ! !femoral ! !spontaneous; normal ! ! ! ! !augmentation ! ! + + + + + !R femoral proximal !Patent !Compressible !Patient resisting ! ! ! ! !compressions. ! + + + + + !R femoral mid !Patent !Normal phasicity; ! ! ! ! !spontaneous; normal ! ! ! !!augmentation; ! ! ! ! !compressible ! ! + + + + + !R femoral distal !Patent !Compressible !Patient resisting ! ! ! ! !compressions. ! + + + + + !Right popliteal !Patent !Normal phasicity; ! ! ! ! !spontaneous; normal ! ! ! !!augmentation; ! ! ! ! !compressible ! ! + + + + + !Right gastrocnemius!Patent !Compressible ! ! + + + + + !Right posterior !Not ! ! ! !tibial !visualized ! ! ! + + + + + !Right peroneal !Not ! ! ! !!visualized ! ! ! + + + + + !Right soleal !Not ! ! ! !!visualized ! ! ! + + + + + !Right greater !Patent !Compressible ! ! !saphenous ! ! ! ! + + + + + !Left common femoral!Patent !Normal phasicity; !Patient resisting ! ! ! !spontaneous; normal !compressions. ! ! ! !augmentation; ! ! ! ! !compressible ! ! + + + + + !Left saphenofemoral!Patent !Compressible !Patient resisting ! !junction ! ! !compressions. ! + + + + + !Left profunda !Patent !Normal phasicity; !. ! !femoral ! !spontaneous; normal ! ! ! ! !augmentation ! ! + + + + + !L femoral proximal !Patent !Compressible !Patient resisting ! ! ! ! !compressions. ! + + + + + !L femoral mid !Patent !Normal phasicity; !Patient resisting ! ! ! !spontaneous; normal !compressions. ! ! ! !augmentation; ! ! ! ! !compressible ! ! + + + + + !L femoral distal !Patent !Compressible !Patient resisting ! ! ! ! !compressions. ! + + + + + !Left popliteal !Patent !Normal phasicity; ! ! ! ! !spontaneous; normal ! ! ! !!augmentation; ! ! ! ! !compressible ! ! + + + + + !Left gastrocnemius !Patent !Compressible ! ! + + + + + !Left posterior !Patent !Compressible ! ! !tibial ! ! ! ! + + + + + !Left peroneal !Patent !Compressible ! ! + + + + + !Left soleal !Patent !Compressible ! ! + + + + + !Left greater !Patent !Compressible ! ! !saphenous ! ! ! ! + + + + + Electronically signed by: Frank Ohara [id number] EKG: All EKG's are interpreted by the Emergency Department Physician in the absence of a record center coordinator.? Please see their note for interpretation of EKG. All other labs were within normal range ornot returned as of this dictation. EMERGENCY DEPARTMENT COURSE and DIFFERENTIAL DIAGNOSIS/MDM: Vitals: Vitals: 06/26/182009 BP: 130/78 Pulse: 70 Resp: 18 Temp: 97.9 ?F (36.6 ?C) SpO2: 98% Weight: 113.4 kg (250 lb) Height: 5' 4 (1.626 m) Medications oxyCODONE-acetaminophen (PERCOCET) 5-325 MG per tablet 2 tablet (2 tablets Oral Given 06/26/182046) MDM This is a 67-year-old female presenting for evaluation of bilateral leg swelling, redness and pain. Patient presents with stable vitals, afebrile. On exam there is cellulitis to the RIGHT lower extremity without lymphangitis or evidence of abscess. There is 2+ pitting edema to her bilateral lower extremities. She is neurovascularly intact. There is no evidence of septic arthritis. She does not have any systemic complaints and is afebrile. Patient is otherwise well in appearance. Medical records were reviewed. Patient was evaluated earlier today at [place] ED, had basic labs performed which I reviewed showing no leukocytosis or renal insufficiency earlier today, also had bilateral venous duplex ultrasound performed which were negative for DVT. She states that she took one pill of Keflex today and it did not get better so she decided to come to the emergency department. At this time I do not believe hospitalization or IV antibiotics are warranted as she has stable vitals, is afebrile, has not even finished one day of outpatient antibiotics, has no leukocytosis or renal insufficiency on labs earlier today. I did explain to the patient that she needs to give the outpatient antibiotics a proper chance in improving her cellulitis. She was given 2 oral Percocet in the ED for her discomfort. At this time patient is suitable for discharge. Patient was discharged with appropriate instructions, told to continue taking her outpatient antibiotics as directed and return to theemergency department for any new or worsening symptoms or lack of improvement in the next 2 days. Patient being discharged is in stable and improved condition and is agreeable to the plan. I have low suspicion for septicemia at this time. Risk factors significant for history of PE on blood thinners, chronic back pain, thyroid disease, depression, hypertension, former tobacco abuse. This patient does notappear to be septic or toxic. No evidence of focal deficits or weakness. REVAL: Upon reevaluation, pain improved, hemodynamically stable, neurovascularly intact, ready for discharge. PROCEDURES: Unless otherwise noted below, none Procedures FINAL IMPRESSION 1. Cellulitis of right lower extremity 2. Leg swelling DISPOSITION/PLAN DISPOSITION Decision To Discharge 06/26/2018 09:02:34 PM PATIENT REFERRED TO: No Horton MD [address] [facility] [address] [facility] [address] DISCHARGE MEDICATIONS: Discharge Medication List as of 06/26/2018 9:03 PM (Please note: Portions of this note werecompleted with a voice recognition program. Efforts were made to edit the dictations but occasionally words and phrases are mis-transcribed.) Form [id number] Ginger Yan PA-C (electronically signed) Emergency Medicine Provider Ginger Yan PA-C 06/27/18 0136 CR CHEST PA/LAT Observed: 06/26/2018 Status: F Source: [employer] 8:18 AM SYSTEM REPOSITORY Patient Name: REGINA PEREIRA Diagnostic Radiology Exam Date/Time 06/26/2018 08:11:28 EST Exam CR Chest PA/LAT Ordering Physician MD NAEL, VJ Accession Number [id number] CPT4 Codes 55328 () Reason For Exam leg swelling Report CHEST: CLINICAL INDICATION: Leg swelling TECHNIQUE: PA and Lateral COMPARISON: 06/18/2018 FINDINGS: No focal consolidation or pulmonary edema. No pleural effusions or pneumothorax. The cardiac and mediastinal silhouettes are normal. The osseous structures are unremarkable. IMPRESSION: No focal consolidation or pulmonary edema. Report Dictated on Final Dictated: 06/26/2018 8:18 am Dictating Physician: MD FUNES KEVIN Signed Date and Time: 06/26/2018 8:19 am Signed by: MD FUNES KEVIN Transcribed Date and Time: 06/26/2018 8:18 HEMOGRAM W/ AUTODIFF Collected: 06/26/2018 Status: F Source: [employer] 7:56 AM SYSTEM REPOSITORY TYPE CODE TESTS RESULT OUT OF REFERENCE UNITS RANGE LAB IWBC 3.6-10.7 10*3/uL WBC Normal 6.3 LAB RBC 3.80-5.20 10*6/uL Low RBC 3.33 LAB HGB 11.7-16.0 g/dL Low Hemoglobin 10.7 LAB HCT 35.0-47.0 % Low Hematocrit 32.5 LAB MCV 79.0-98.0 fL MCV Normal 97.6 LAB MCH 26.0-34.0 pg MCH Normal 32.0 LAB MCHC 32.0-36.0 % MCHC Normal 32.8 LAB RDW 11.5-14.5 % RDW High 15.9 LAB PLT 140-440 10*3/uL Platelet Normal 319 LAB MPV 7.4-10.4 fL Low MPV 6.3 LAB GRAN% 40.0-80.0 % Granulocytes Normal 65.7 LAB LYMP% 20.0-40.0 % Lymphocytes Normal 25.2 LAB MONO% 2.0-10.0 % Monocytes Normal 6.4 LAB EOS% 1.0-6.0 % Eosinophils Normal 1.3 LAB BAS% 0.0-2.0 % Basophils Normal 1.4 LAB ANC 1.8-7.0 10*3/uL Abs Normal Neutrophile Cnt 4.1 LAB ALC 1.0-4.3 10*3/uL Abs Lymph Cnt Normal 1.6 LAB AMC 0.0-0.8 10*3/uL Abs Monocyte Normal Cnt 0.4 LAB AEC 0.0-0.5 10*3/uL Abs Eosin Cnt Normal 0.1 LAB ABC 0.0-0.2 10*3/uL Abs Baso Cnt Normal 0.1 Performed By: #### HEMDF, BMP3 #### [facility] [address] [place] [address] BASIC METABOLIC PANEL Collected: 06/26/2018 Status: F Source: [employer] 7:56 AM SYSTEM REPOSITORY TYPE CODE TESTS RESULT OUT OF RANGE REFERENCE UNITS LAB NA3 137-145 mmol/L Sodium Normal 138 LAB K3 3.5-5.1 mmol/L Normal Potassium 3.9 LAB CL3 98-107 mmol/L Chloride Normal 101 LAB CO23 22-30 mmol/L Carbon Normal Dioxide 26 LAB ANIN3 NA Anion Gap 11 LAB GLUC3 70-100 mg/dL Glucose Normal 98 LAB BUN3 7-20 mg/dL Urea Normal Nitrogen 10 LAB CRET3 0.52-1.25 mg/dL Normal Creatinine 0.76 LAB GF3BR >60 mL/min eGFR > 60.0 LAB GF3WR >60 mL/min eGFR OTHER > 60.0 Result Comment: Source- MDRD equation with creatinine calibration to IDMS(NKDEP) eGFR not recommended for drug dose adjustment LAB CA3 8.4-10.4 mg/dL Normal Calcium 9.5 Performed By: #### HEMDF, BMP3 #### [employer] [address] [place] [address] VL VENOUS DUPLEX US Observed: 06/26/2018 Status: F Source: [employer] LOWER EXT BILATERAL 7:30 AM SYSTEM REPOSITORY Patient Name: REGINA PEREIRA Ultrasound Exam Date/Time 06/26/2018 09:03:40 EST Exam VL Venous Duplex US Lower Ext Bilateral Ordering Physician MD NAEL, VJ Accession Number [id number] CPT4 Codes 04547 () Reason For Exam leg swelling Report [facility] --- Lower Extremity Venous Duplex Report Patient Name: Regina Pereira : 1950 Study Date: 06/26/2018 (67yrs) Age: 67 Account: [id number] Gender: F Loc: 3EGR BP: Ordering: Vj Nayak Technologist: Ordering Physician: Vj Nayak Settlement Clerk: Cathie Connolly RDNV, [facility] Interpreting Physician: Frank Ohara --- Location: [facility] --- INDICATIONS: Erythema lower RT calf x 2 days Swelling of limb both calves R>L x 2 days --- CONCLUSIONS 1. Normal venous duplex 2. Limited study below knee on the right --- IMPRESSIONS: These findings are negative for deep or superficial vein thrombosis in the bilateral lower extremities. --- HISTORY: Deep vein thrombosis. Risk factors: Hypertension. Obese. Renal disease. --- STUDY DATA: Complete lower extremity venous duplex evaluation. Birthdate: Patient birthdate: 1950. Age: Patient is 67 yr old. Sex: Gender: female. Ethnicity: Ethnicity: white. Doppler flow study including spectral analysis, color and kahn scale imaging. Patient status: Emergency department. Procedure: A vascular evaluation was performed. The images were obtained using a [employer]Jam [employer]io vascular ultrasound machine. --- VENOUS FLOW AND IMAGING: + + + + --+ !Location !Overall !Flow properties !Comments ! + + + + --+ !Right common !Patent !Normal phasicity; !Patient resisting ! !femoral ! !spontaneous; normal !compressions. ! ! ! !augmentation; ! ! ! ! !compressible ! ! + + + + --+ !Right !Patent !Compressible !Patient resisting ! !saphenofemoral ! ! !compressions. ! !junction ! ! ! ! + + + + --+ !Right profunda !Patent !Normal phasicity; ! --! !femoral ! !spontaneous; normal ! ! ! ! !augmentation ! ! + + + + --+ !R femoral proximal !Patent !Compressible !Patient resisting ! ! ! ! !compressions. ! + + + + --+ !R femoral mid !Patent !Normal phasicity; ! --! ! ! !spontaneous; normal ! ! ! ! !augmentation; ! ! ! ! !compressible ! ! + + + + --+ !R femoral distal !Patent !Compressible !Patient resisting ! ! ! ! !compressions. ! + + + + --+ !Right popliteal !Patent !Normal phasicity; ! --! ! ! !spontaneous; normal ! ! ! ! !augmentation; ! ! ! ! !compressible ! ! + + + + --+ !Right gastrocnemius!Patent !Compressible ! --! + + + + --+ !Right posterior !Not ! ! --! !tibial !visualized ! ! ! + + + + --+ !Right peroneal !Not ! ! --! ! !visualized ! ! ! + + + + --+ !Right soleal !Not ! ! --! ! !visualized ! ! ! + + + + --+ !Right greater !Patent !Compressible ! --! !saphenous ! ! ! ! + + + + --+ !Left common femoral!Patent !Normal phasicity; !Patient resisting ! ! ! !spontaneous; normal !compressions. ! ! ! !augmentation; ! ! ! ! !compressible ! ! + + + + --+ !Left saphenofemoral!Patent !Compressible !Patient resisting ! !junction ! ! !compressions. ! + + + + --+ !Left profunda !Patent !Normal phasicity; !. ! !femoral ! !spontaneous; normal ! ! ! ! !augmentation ! ! + + + + --+ !L femoral proximal !Patent !Compressible !Patient resisting ! ! ! ! !compressions. ! + + + + --+ !L femoral mid !Patent !Normal phasicity; !Patient resisting ! ! ! !spontaneous; normal !compressions. ! ! ! !augmentation; ! ! ! ! !compressible ! ! + + + + --+ !L femoral distal !Patent !Compressible !Patient resisting ! ! ! ! !compressions. ! + + + + --+ !Left popliteal !Patent !Normal phasicity; ! --! ! ! !spontaneous; normal ! ! ! ! !augmentation; ! ! ! ! !compressible ! ! + + + + --+ !Left gastrocnemius !Patent !Compressible ! --! + + + + --+ !Left posterior !Patent !Compressible ! --! !tibial ! ! ! ! + + + + --+ !Left peroneal !Patent !Compressible ! --! + + + + --+ !Left soleal !Patent !Compressible ! --! + + + + --+ !Left greater !Patent !Compressible ! --! !saphenous ! ! ! ! + + + + --+ Electronically signed by: Frank Ohara [id number] Final Dictated: 06/26/2018 1:20 pm Dictating Physician: FRANK OHARA Signed Date and Time: 06/26/2018 1:20 pm Signed by: FRANK OHARA Observed: 06/23/2018 Status: COMPLETED Source: [facility] 12:00 AM [facility] REPOSITORY Refill ([facility]) REGINA PEREIRA ([id number]) 1950 F Date Time Provider Department 06/23/18 NO HORTON [facility] During your visit today, we recorded the following information about you: Mert Everett 06/23/2018 1:57 PM Signed Pt states she needs a refill of lisinopril-hydrochlorothiazide (PRINZIDE, ZESTORETIC) 20-25 mg per tablet Please advise. Mert Marguerite 06/23/2018 13:56:02 Dave Cardoso MA 06/24/2018 10:44 AM Signed Pharmacy faxed requesting the following refill Pending Prescriptions Disp Refills LISINOPRIL 20 MG-HYDROCHLOROTHIAZIDE 25 MG TABLET 90 tablet 3 Sig: Take 1 tablet by mouth once daily. EDOUARD: No Allergies: Patient has no known allergies. (home) [phone] (cell) Last Visit date: 05/07/2018 Future appointment: Visit date not found The patients preferred pharmacy has been captured for this encounter? yes Request is for script(s) to be escript to pharmacy. OARRS Report for this patient was checked and validated:Not applicable Dave Cardoso MA Allergies As of Date: 06/23/2018 (No Known Allergies) Date Reviewed: 05/30/2018 Reviewed by: Sharita Peterson) JODIE Galloway - Fully Assessed Reason for Visit: Refill Request [94] Order(s):lisinopril-hydrochlorothiazide (PRINZIDE, ZESTORETIC) 20-25 mg per tabletTake 1 tablet by mouth once daily.Disp: 90 tabletRfl: 3 Prescriptions as of 06/23/2018 Sig: LISINOPRIL 20 MG-HYDROCHLOROT* Take 1 tablet by mouth once d* RIVAROXABAN 20 MG TABLET Take 1 tablet by mouth daily * AUGMENTIN ORAL Take by mouth. RISPERIDONE 0.5 MG TABLET Take 1 tablet by mouth twice * SERTRALINE 100 MG TABLET Take 1 tablet by mouth once d* LEVOTHYROXINE 50 MCG TABLET Take 1 tablet by mouth once d* Patient not taking: Reported on 04/23/2018 RIVAROXABAN 15 MG TABLET Take one tab by mouth twice d* Patient not taking: Reported on 12/15/2017 LISINOPRIL 10 MG-HYDROCHLOROT* Take 1 tablet by mouth once d* Problem List As Of Date 06/23/2018 Noted Resolved Anxiety [F41.9] Compression fracture of lumbar vertebra (HCC) [* Depression [F32.9] DDD (degenerative disc disease), lumbar [M51.36] H/O blood clots [Z86.718] Hypertension [I10] Scoliosis [M41.9] Prescriptions ordered this encounter Disp Refills Start End LISINOPRIL 20 MG-HYDROCHLOROTHIAZIDE* 90 t* 3 06/28/2018 06/28/2019 Route: ORAL Sig: Take 1 tablet by mouth once daily. Medications Discontinued During This Encounter lisinopril-hydrochlorothiazide (PRIN* 30 t* 3 05/06/2018 06/28/2018 Cmt: This prescription was filled on 05/05/2018. Any refills authorized will be placed on file. Sig: TAKE ONE TABLET BY MOUTH EVERY DAY Disc: Reason for discontinue is not on file. Encounter Status:Closed by NO HORTON on 06/28/18 DISCHARGE SUMMARY Observed: 06/20/2018 Status: F Source: [employer] 9:51 AM SYSTEM REPOSITORY Attestation signed by Andrzej Cervantes MD at 06/20/2018 1:27 PM I have interviewed and examined the patient independently and agree with the findings/assessment/plan of Dr. Robbins. BP normal and stable. Likely with hypovolemic shock due to medications causing ROSY and demand cardiac ischemia which has now resolved. PT recommend SNF but the pt refuses. She is OK w [facility]. Patient is aware about the dangers of chronic short acting opioid use in she admits to wanting to get off of them. She has been given information about outpatient methadone clinics which she will pursue Internal Medicine: Med TeamDischarge Summary and Transition Note Regina Garcia Randall : 1950 ADMIT DATE: 06/17/2018 DISCHARGE DATE: 06/20/2018 PRIMARY CARE PHYSICIAN: NO HORTON MD VISIT STATUS: Admission CODE STATUS: Full Code DISCHARGE DIAGNOSES: Principal Problem (Resolved): Hypovolemic shock (HCC) Active Problems: Psoriasis Drug-seeking behavior History of pulmonary embolism Chronic back pain Thyroid disease DDD (degenerative disc disease), lumbar Hypertension Scoliosis Transaminitis Resolved Problems: Hypotension ROSY (acute kidney injury) (HCC) Lactic acidosis Acute encephalopathy HOSPITAL COURSE: Regina Pereira is a 67 y.o. woman with PMH chronic low back pain (use to see pain management, has multiple ED visits in the last 2 months for pain) / DDD / scoliosis, HTN, PE (xarelto), depression, hypothyroidism, psoriasis that initially presented to [place] ED on 06/18 with worsening mental status over the few days prior to admission. Patient may have taken her daughter's trazodone along with percocet. While in [facility] ED, patient had significant hypotension not responsive to fluids with elevated Cr (5.10, baseline 0.88). Transferred to [facility] for ICU admission for acute drug-induced encephalopathy, hypovolemic / septic shock, and ROSY. Required pressors for a short time. Started on IV antibiotics. Started on bicarb drip for metabolic acidosis. Sepsis workup was done, everything turned back negative. Blood pressure and creatinine improved, patient was transferred to floor. IV Abx and bicarb drip were stopped. Pain Management, Addiction Medicine, and Psychiatry were all consulted. Patient was started on librium and a tramadol taper. Patient was seen by PT/OT who recommended subacute / SNF for back pain, patient refused and preferred to go home , she agreeable for home health. Psychiatry evaluated patient out of concern for intentional overdose, but this was felt to be accidental overdose. Librium was discontinued secondary to lethargy and patient was out of window.We touch based with both ADM and pain management before discharge,and they were ok with it.Suggested patient to enroll in Methadone clinic, and she will follow up with her pain management in [place]. Tramadol taper was discontinued prior to discharge. PROCEDURES: RIJ Central Line insertion. CONSULTANTS: Addiction Medicine Pain Management Psychiatry DISCHARGE MEDICATIONS: Regina Pereira Home Medication Instructions DK:[id number] Printed on:06/20/18 4282 Medication Information dicyclomine (BENTYL) 20 MG tablet Take 1 tablet by mouth every 6 hours as needed (abdominal cramps) DULoxetine (CYMBALTA) 30 MG extended release capsule Take 1 capsule by mouth daily folic acid (FOLVITE) 1 MG tablet Take 1 tablet by mouth daily gabapentin (NEURONTIN) 100 MG capsule Take 1 capsule by mouth 3 times daily as needed (severe anxiety. may give with hydroxizine) for up to 30 days.. lidocaine (LIDODERM) 5 % Place 3 patches onto the skin daily 12 hours on, 12 hours off. lisinopril-hydrochlorothiazide (PRINZIDE;ZESTORETIC) 10-12.5 MG per tablet Take 1 tablet by mouth risperiDONE (RISPERDAL) 0.5 MG tablet Take 1 tablet by mouth 2 times daily rivaroxaban (XARELTO) 20 MG TABS tablet Take 20 mg by mouth sertraline (ZOLOFT) 100 MG tablet Take 1 tablet by mouth daily thiamine 100 MG tablet Take 1 tablet by mouth daily tiZANidine (ZANAFLEX) 4 MG tablet Take 1 tablet by mouth every 8 hours as needed (pain) DIET: DIET GENERAL; ACTIVITY: No restriction. SIGNIFICANT DIAGNOSTIC STUDIES: 06/17 CT Head WO contrast IMPRESSION: ?Mild parenchymal volume loss . Mild chronic ischemic white matter changes. ?[ No evidence of acute intracranial process ] 06/18 CXR Findings: A single AP portable view of the chest was obtained at 1759 hours. ?Comparison was made to the prior study earlier study same date 0202 hours. The right jugular line is unchanged. The trachea is midline. The heart is not enlarged. There is a small left pleural effusion. There may be a most mild degree of pulmonary vascular congestion but no overt pulmonary edema is identified. 06/18 CT Abdomen / Pelvis WO contrast IMPRESSION: ? No significant acute findings as discussed above PENDING RESULTS AT TIME OF DISCHARGE: NA COMPLEXITY OF FOLLOW UP: [] Moderate Complexity: follow up within 7-14 calendar days (67347) [x] Severe Complexity: follow up within 7 calendar days (95538) FOLLOW UP TESTING, PENDING RESULTS OR REFERRALS AT TRANSITIONAL CARE VISIT: [] Yes [x] No RECOMMENDED NEXT STEPS: Establish with Methadone Clinic. Avoid opioid / alcohol use in the future. DISPOSITION: Home with Home Health Care FACILITY/HOME CARE AGENCY NAME: NA Follow up with Follow-up With Details Why Contact Info No Horton MD Schedule an appointment as soon as possible for a visit in 2 weeks Post hopital F/up [address] [facility] [address] [facility] [address] Methadone Clinic Schedule an appointment as soon as possible for a visit in 1 week [facility] [address] [place] [address] Kacy Juarez MD Schedule an appointment as soon as possible for a visit in 1 week pain management, [place] [phone] Notification (telephone encounter) to PCP initiated by discharging physician/delegate: NO INSTRUCTIONS TO MA/SW: Please call patient on day after discharge (must document patient contacted within 2 business days of discharge). FOLLOW UP QUESTIONS FOR MA/SW: 1. Did you get medications filled and taking them as instructed from discharge? 2. Are you following your discharge instructions from your hospital stay? 3. Please confirm patient is scheduled for a follow up appointment within the above time frame. IUM,IONIZED Collected: 06/20/2018 Status: F Source: [employer] 2:22 AM SYSTEM REPOSITORY TYPE CODE TESTS RESULT OUT OF RANGE REFERENCE UNITS LAB ICAL 4.30-5.20 mg/dL Low Ionized 4.10 Ca,Measured LAB PHICA 7.31-7.46 NA Normal pH, Ionized 7.44 Calcium Performed By: #### HEMDF, ICA, MG3, PHOS3, BMP3, MDIFF, LFT3 #### [facility] [address] [place] [address] HEMOGRAM W/ AUTODIFF Collected: 06/20/2018 Status: F Source: [employer] 2:21 AM SYSTEM REPOSITORY TYPE CODE TESTS RESULT OUT OF RANGE REFERENCE UNITS LAB IWBC 3.6-10.7 10*3/uL WBC Normal 7.1 LAB RBC 3.80-5.20 10*6/uL Low RBC 3.24 LAB HGB 11.7-16.0 g/dL Low Hemoglobin 10.6 LAB HCT 35.0-47.0 % Low Hematocrit 30.8 LAB MCV 79.0-98.0 fL MCV Normal 95.1 LAB MCH 26.0-34.0 pg MCH Normal 32.8 LAB MCHC 32.0-36.0 % MCHC Normal 34.5 LAB RDW 11.5-14.5 % High RDW 14.9 LAB PLT 140-440 10*3/uL Platelet Normal 270 LAB MPV 7.4-10.4 fL Low MPV 6.6 Performed By: #### HEMDF, ICA, MG3, PHOS3, BMP3, MDIFF, LFT3 #### [facility] [address] [place] [phone] MAGNESIUM Collected: 06/20/2018 Status: F Source: [employer] 2:21 AM SYSTEM REPOSITORY TYPE CODE TESTS RESULT OUT OF RANGE REFERENCE UNITS LAB MG3 1.6-2.3 mg/dL Normal Magnesium 1.8 Performed By: #### HEMDF, ICA, MG3, PHOS3, BMP3, MDIFF, LFT3 #### [facility] [address] [place] [phone] PHOSPHORUS Collected: 06/20/2018 Status: F Source: [employer] 2:21 AM SYSTEM REPOSITORY TYPE CODE TESTS RESULT OUT OF REFERENCE UNITS RANGE LAB PHOS3 2.5-4.5 mg/dL Low Phosphorus 2.4 Performed By: #### HEMDF, ICA, MG3, PHOS3, BMP3, MDIFF, LFT3 #### [facility] [address] [place] [phone] BASIC METABOLIC PANEL Collected: 06/20/2018 Status: F Source: [employer] 2:21 AM SYSTEM REPOSITORY TYPE CODE TESTS RESULT OUT OF RANGE REFERENCE UNITS LAB NA3 137-145 mmol/L Low Sodium 134 LAB K3 3.5-5.1 mmol/L Normal Potassium 3.7 LAB CL3 98-107 mmol/L Chloride Normal 98 LAB CO23 22-30 mmol/L Carbon Normal Dioxide 28 LAB ANIN3 NA Anion Gap 7 LAB GLUC3 70-100 mg/dL Glucose Normal 93 LAB BUN3 7-20 mg/dL Urea Normal Nitrogen 13 LAB CRET3 0.52-1.25 mg/dL Normal Creatinine 0.62 LAB GF3BR >60 mL/min eGFR > 60.0 LAB GF3WR >60 mL/min eGFR OTHER > 60.0 Result Comment: Source- MDRD equation with creatinine calibration to IDMS(NKDEP) eGFR not recommended for drug dose adjustment LAB CA3 8.4-10.4 mg/dL Normal Calcium 9.8 Performed By: #### HEMZULAY, ICA, MG3, PHOS3, BMP3, BART, LFT3 #### [facility] [email or web address] [address] [phone] MANUAL DIFF Collected: 06/20/2018 Status: F Source: [employer] 2:21 AM SYSTEM REPOSITORY TYPE CODE TESTS RESULT OUT OF RANGE REFERENCE UNITS LAB NEUTR 40-80 % Seg Neutrophils Normal 73 LAB BANDS 0-3 % Bands Normal 1 LAB LYMPH 20-40 % Low Lymphocytes 19 LAB MONOC 2-10 % Monocytes Normal 3 LAB EO 1-6 % Eosinophils Normal 2 LAB BASO 0-2 % Basophils Normal 1 LAB META <1 % Metamyelocytes Abnormal 1 LAB ANCM 2.2-8.2 10*3/uL Abs Neutrophile Normal Cnt 5.3 LAB ALCM 1.1-4.5 10*3/uL Abs Lymph Cnt Normal 1.3 LAB AMCM 0.2-1.1 10*3/uL Abs Monocyte Cnt Normal 0.2 LAB AECM 0.0-0.5 10*3/uL Abs Eosin Cnt Normal 0.1 LAB ABCM 0.0-0.2 10*3/uL Abs Baso Cnt Normal 0.1 LAB RBMOR NA RBC Morphology ABNORMAL LAB ANISO NA Anisocytosis Slight LAB POIK NA Poikilocytosis Slight LAB MICRO NA Microcytosis Slight LAB HYPOC NA Hypochromia Slight LAB OVAL NA Ovalocytes Slight LAB TEARD NA Tear Drop Forms Slight LAB LIMIT NA Cells counted 100 Performed By: #### HEMZULAY, ICA, MG3, PHOS3, BMP3, BART, LFT3 #### [facility] [email or web address] [address] [phone] HEPATIC FUNCTION Collected: 06/20/2018 Status: F Source: [employer] 2:21 AM SYSTEM REPOSITORY TYPE CODE TESTS RESULT OUT OF RANGE REFERENCE UNITS LAB ALB3 3.5-5.0 g/dL Albumin, Normal Serum 3.9 LAB TP3 6.3-8.2 g/dL Low Total Protein 6.1 LAB BILT3 0.2-1.3 mg/dL Normal Bilirubin,Total 0.5 LAB BILD3 0.0-0.3 mg/dL Normal Bilirubin,Direct 0.0 LAB ALKP3 38-126 U/L Alkaline Normal Phosphatase 61 LAB ALT3 13-69 U/L ALT (SGPT) Normal 45 LAB AST3 15-46 U/L High AST (SGOT) 53 Performed By: #### HEMDF, ICA, MG3, PHOS3, BMP3, MDIFF, LFT3 #### [facility] [email or web address] [address] [phone] CALCIUM,IONIZED Collected: 06/19/2018 Status: F Source: [employer] 4:43 PM SYSTEM REPOSITORY TYPE CODE TESTS RESULT OUT OF REFERENCE UNITS RANGE LAB ICAL 4.30-5.20 mg/dL Low Ionized 3.80 Ca,Measured LAB PHICA 7.31-7.46 NA High pH, Ionized 7.47 Calcium Performed By: #### BMP3, ICA #### [facility] [email or web address] [address] [phone] HEMOGRAM Collected: 06/19/2018 Status: F Source: [employer] 4:43 PM SYSTEM REPOSITORY TYPE CODE TESTS RESULT OUT OF RANGE REFERENCE UNITS LAB IWBC 3.6-10.7 10*3/uL WBC Normal 7.9 LAB RBC 3.80-5.20 10*6/uL Low RBC 3.18 LAB HGB 11.7-16.0 g/dL Low Hemoglobin 10.2 LAB HCT 35.0-47.0 % Low Hematocrit 30.4 LAB MCV 79.0-98.0 fL MCV Normal 95.4 LAB MCH 26.0-34.0 pg MCH Normal 32.1 LAB MCHC 32.0-36.0 % MCHC Normal 33.7 LAB RDW 11.5-14.5 % High RDW 15.2 LAB PLT 140-440 10*3/uL Platelet Normal 269 LAB MPV 7.4-10.4 fL Low MPV 6.8 Performed By: #### BMP3, HEMOG #### [facility] [email or web address] [address] [phone] BASIC METABOLIC PANEL Collected: 06/19/2018 Status: F Source: [employer] 4:43 PM SYSTEM REPOSITORY TYPE CODE TESTS RESULT OUT OF RANGE REFERENCE UNITS LAB NA3 137-145 mmol/L Low Sodium 134 LAB K3 3.5-5.1 mmol/L Normal Potassium 3.6 LAB CL3 98-107 mmol/L Chloride Normal 99 LAB CO23 22-30 mmol/L Carbon Normal Dioxide 28 LAB ANIN3 NA Anion Gap 6 LAB GLUC3 70-100 mg/dL High Glucose 102 LAB BUN3 7-20 mg/dL Urea Normal Nitrogen 14 LAB CRET3 0.52-1.25 mg/dL Normal Creatinine 0.70 LAB GF3BR >60 mL/min eGFR > 60.0 LAB GF3WR >60 mL/min eGFR OTHER > 60.0 Result Comment: Source- MDRD equation with creatinine calibration to IDMS(NKDEP) eGFR not recommended for drug dose adjustment LAB CA3 8.4-10.4 mg/dL Normal Calcium 8.9 Performed By: #### BMP3 #### [facility] [address] [place] [phone] APTT Collected: 06/19/2018 Status: F Source: [employer] 1:43 PM SYSTEM REPOSITORY TYPE CODE TESTS RESULT OUT OF RANGE REFERENCE UNITS LAB PTTA 20.0-30.5 s High APTT 53.1 Result Comment: NOTE: The therapeutic time for Heparin anticoagulation, based on Xa activity inhibition, is an APTT of 46-80 seconds. Performed By: #### BMP3, APTT #### [facility] [address] [place] [phone] BASIC METABOLIC PANEL Collected: 06/19/2018 Status: F Source: [employer] 10:36 AM SYSTEM REPOSITORY TYPE CODE TESTS RESULT OUT OF RANGE REFERENCE UNITS LAB NA3 137-145 mmol/L Low Sodium 132 LAB K3 3.5-5.1 mmol/L Low Potassium 3.3 LAB CL3 98-107 mmol/L Low Chloride 97 LAB CO23 22-30 mmol/L Carbon Normal Dioxide 28 LAB ANIN3 NA Anion Gap 7 LAB GLUC3 70-100 mg/dL High Glucose 115 LAB BUN3 7-20 mg/dL Urea Normal Nitrogen 15 LAB CRET3 0.52-1.25 mg/dL Normal Creatinine 0.69 LAB GF3BR >60 mL/min eGFR > 60.0 LAB GF3WR >60 mL/min eGFR OTHER > 60.0 Result Comment: Source- MDRD equation with creatinine calibration to IDMS(NKDEP) eGFR not recommended for drug dose adjustment LAB CA3 8.4-10.4 mg/dL Normal Calcium 9.1 Performed By: #### BMP3, HEMOG #### [facility] [address] [place] [phone] HEMOGRAM W/ AUTODIFF Collected: 06/19/2018 Status: F Source: [employer] 4:10 AM SYSTEM REPOSITORY TYPE CODE TESTS RESULT OUT OF RANGE REFERENCE UNITS LAB IWBC 3.6-10.7 10*3/uL WBC Normal 8.2 LAB RBC 3.80-5.20 10*6/uL Low RBC 3.12 LAB HGB 11.7-16.0 g/dL Low Hemoglobin 10.2 LAB HCT 35.0-47.0 % Low Hematocrit 29.5 LAB MCV 79.0-98.0 fL MCV Normal 94.5 LAB MCH 26.0-34.0 pg MCH Normal 32.8 LAB MCHC 32.0-36.0 % MCHC Normal 34.7 LAB RDW 11.5-14.5 % High RDW 15.1 LAB PLT 140-440 10*3/uL Platelet Normal 259 LAB MPV 7.4-10.4 fL Low MPV 6.6 Performed By: #### HEMDF, ICA, BMP3, MG3, PHOS3, APTT, MDIFF #### [facility] [address] [place] [phone] CALCIUM,IONIZED Collected: 06/19/2018 Status: F Source: [employer] 4:10 AM SYSTEM REPOSITORY TYPE CODE TESTS RESULT OUT OF RANGE REFERENCE UNITS LAB ICAL 4.30-5.20 mg/dL Low Ionized 3.90 Ca,Measured LAB PHICA 7.31-7.46 NA Normal pH, Ionized 7.43 Calcium Performed By: #### HEMDF, ICA, BMP3, MG3, PHOS3, APTT, MDIFF #### [facility] [address] [place] [phone] BASIC METABOLIC PANEL Collected: 06/19/2018 Status: F Source: [employer] 4:10 AM SYSTEM REPOSITORY TYPE CODE TESTS RESULT OUT OF RANGE REFERENCE UNITS LAB NA3 137-145 mmol/L Low Sodium 134 LAB K3 3.5-5.1 mmol/L Low Potassium 3.0 LAB CL3 98-107 mmol/L Chloride Normal 98 LAB CO23 22-30 mmol/L Carbon Normal Dioxide 29 LAB ANIN3 NA Anion Gap 6 LAB GLUC3 70-100 mg/dL High Glucose 142 LAB BUN3 7-20 mg/dL Urea Normal Nitrogen 17 LAB CRET3 0.52-1.25 mg/dL Normal Creatinine 0.71 LAB GF3BR >60 mL/min eGFR > 60.0 LAB GF3WR >60 mL/min eGFR OTHER > 60.0 Result Comment: Source- MDRD equation with creatinine calibration to IDMS(NKDEP) eGFR not recommended for drug dose adjustment LAB CA3 8.4-10.4 mg/dL Normal Calcium 9.4 Performed By: #### HEMDF, ICA, BMP3, MG3, PHOS3, APTT, MDIFF #### [facility] [address] [place] [phone] MAGNESIUM Collected: 06/19/2018 Status: F Source: [employer] 4:10 AM SYSTEM REPOSITORY TYPE CODE TESTS RESULT OUT OF RANGE REFERENCE UNITS LAB MG3 1.6-2.3 mg/dL Normal Magnesium 2.0 Performed By: #### HEMDF, ICA, BMP3, MG3, PHOS3, APTT, MDIFF #### [facility] [address] [place] [phone] PHOSPHORUS Collected: 06/19/2018 Status: F Source: [employer] 4:10 AM SYSTEM REPOSITORY TYPE CODE TESTS RESULT OUT OF REFERENCE UNITS RANGE LAB PHOS3 2.5-4.5 mg/dL Low Phosphorus 2.2 Performed By: #### HEMDF, ICA, BMP3, MG3, PHOS3, APTT, MDIFF #### [facility] [address] [place] [phone] APTT Collected: 06/19/2018 Status: F Source: [employer] 4:10 AM SYSTEM REPOSITORY TYPE CODE TESTS RESULT OUT OF RANGE REFERENCE UNITS LAB PTTA 20.0-30.5 s High APTT 82.7 Result Comment: NOTE: The therapeutic time for Heparin anticoagulation, based on Xa activity inhibition, is an APTT of 46-80 seconds. Performed By: #### HEMDF, ICA, BMP3, MG3, PHOS3, APTT, MDIFF #### [facility] [address] [place] [address] MANUAL DIFF Collected: 06/19/2018 Status: F Source: [employer] 4:10 AM SYSTEM REPOSITORY TYPE CODE TESTS RESULT OUT OF REFERENCE UNITS RANGE LAB NEUTR 40-80 % Seg Neutrophils Normal 74 LAB BANDS 0-3 % Bands Normal 3 LAB LYMPH 20-40 % Low Lymphocytes 17 LAB MONOC 2-10 % Monocytes Normal 5 LAB EO 1-6 % Eosinophils Normal 1 LAB BASO 0-2 % Basophils Normal 0 LAB ANCM 2.2-8.2 10*3/uL Abs Neutrophile Normal Cnt 6.3 LAB ALCM 1.1-4.5 10*3/uL Abs Lymph Cnt Normal 1.4 LAB AMCM 0.2-1.1 10*3/uL Abs Monocyte Cnt Normal 0.4 LAB AECM 0.0-0.5 10*3/uL Abs Eosin Cnt Normal 0.1 LAB ABCM 0.0-0.2 10*3/uL Abs Baso Cnt Normal 0.0 LAB RBMOR NA RBC Morphology ABNORMAL LAB ANISO NA Anisocytosis Slight LAB POIK NA Poikilocytosis Slight LAB HYPOC NA Hypochromia Slight LAB OVAL NA Ovalocytes Slight LAB TEARD NA Tear Drop Forms Slight LAB LIMIT NA Cells counted 100 Performed By: #### HEMDF, ICA, BMP3, MG3, PHOS3, APTT, MDIFF #### [facility] [address] [place] [phone] APTT Collected: 06/18/2018 Status: F Source: [employer] 9:58 PM SYSTEM REPOSITORY TYPE CODE TESTS RESULT OUT OF RANGE REFERENCE UNITS LAB PTTA 20.0-30.5 s High APTT 59.1 Result Comment: NOTE: The therapeutic time for Heparin anticoagulation, based on Xa activity inhibition, is an APTT of 46-80 seconds. Performed By: #### BMP3, ICA, HEMOG, APTT #### [facility] [address] [place] [phone] BASIC METABOLIC PANEL Collected: 06/18/2018 Status: F Source: [employer] 9:58 PM SYSTEM REPOSITORY TYPE CODE TESTS RESULT OUT OF RANGE REFERENCE UNITS LAB NA3 137-145 mmol/L Low Sodium 134 LAB K3 3.5-5.1 mmol/L Low Potassium 3.3 LAB CL3 98-107 mmol/L Chloride Normal 100 LAB CO23 22-30 mmol/L Carbon Normal Dioxide 25 LAB ANIN3 NA Anion Gap 8 LAB GLUC3 70-100 mg/dL High Glucose 131 LAB BUN3 7-20 mg/dL High Urea Nitrogen 21 LAB CRET3 0.52-1.25 mg/dL Normal Creatinine 0.84 LAB GF3BR >60 mL/min eGFR > 60.0 LAB GF3WR >60 mL/min eGFR OTHER > 60.0 Result Comment: Source- MDRD equation with creatinine calibration to IDMS(NKDEP) eGFR not recommended for drug dose adjustment LAB CA3 8.4-10.4 mg/dL Normal Calcium 9.1 Performed By: #### BMP3, ICA #### [facility] [address] [place] [phone] CR CHEST PORTABLE Observed: 06/18/2018 Status: F Source: [employer] 8:31 PM SYSTEM REPOSITORY Patient Name: REGINA PEREIRA Diagnostic Radiology Exam Date/Time 06/18/2018 18:14:39 EST Exam CR Chest Portable Ordering Physician JONES JARQUIN JUDITH A. Accession Number [id number] CPT4 Codes 87597 () Reason For Exam sepsis Report Portable chest 06/18/2018: Clinical Information: Sepsis. Findings: A single AP portable view of the chest was obtained at 1759 hours. Comparison was made to the prior study earlier study same date 0202 hours. The right jugular line is unchanged. The trachea is midline. The heart is not enlarged. There is a small left pleural effusion. There may be a most mild degree of pulmonary vascular congestion but no overt pulmonary edema is identified. Report Dictated on Workstation: [email or web address] Final Dictated: 06/18/2018 8:31 pm Dictating Physician: MD MENDOSA RISA Signed Date and Time: 06/18/2018 8:32 pm Signed by: MD MENDOSA RISA Transcribed Date and Time: 06/18/2018 8:31 CALCIUM,IONIZED Collected: 06/18/2018 Status: F Source: [employer] 4:54 PM SYSTEM REPOSITORY TYPE CODE TESTS RESULT OUT OF RANGE REFERENCE UNITS LAB ICAL 4.30-5.20 mg/dL Normal Ionized 4.50 Ca,Measured LAB PHICA 7.31-7.46 NA Normal pH, Ionized 7.36 Calcium Performed By: #### BMP3, ICA, HEMOG, APTT #### [facility] [address] [place] [phone] HEMOGRAM Collected: 06/18/2018 Status: F Source: [employer] 4:54 PM SYSTEM REPOSITORY TYPE CODE TESTS RESULT OUT OF RANGE REFERENCE UNITS LAB IWBC 3.6-10.7 10*3/uL WBC Normal 10.5 LAB RBC 3.80-5.20 10*6/uL Low RBC 3.30 LAB HGB 11.7-16.0 g/dL Low Hemoglobin 10.7 LAB HCT 35.0-47.0 % Low Hematocrit 31.2 LAB MCV 79.0-98.0 fL MCV Normal 94.8 LAB MCH 26.0-34.0 pg MCH Normal 32.5 LAB MCHC 32.0-36.0 % MCHC Normal 34.3 LAB RDW 11.5-14.5 % High RDW 15.2 LAB PLT 140-440 10*3/uL Platelet Normal 288 LAB MPV 7.4-10.4 fL Low MPV 6.9 Performed By: #### BMP3, ICA, HEMOG, APTT #### [facility] [address] [place] [phone] BASIC METABOLIC PANEL Collected: 06/18/2018 Status: F Source: [employer] 4:54 PM SYSTEM REPOSITORY TYPE CODE TESTS RESULT OUT OF RANGE REFERENCE UNITS LAB NA3 137-145 mmol/L Low Sodium 132 LAB K3 3.5-5.1 mmol/L Normal Potassium 3.8 LAB CL3 98-107 mmol/L Chloride Normal 99 LAB CO23 22-30 mmol/L Carbon Normal Dioxide 23 LAB ANIN3 NA Anion Gap 11 LAB GLUC3 70-100 mg/dL High Glucose 137 LAB BUN3 7-20 mg/dL High Urea Nitrogen 25 LAB CRET3 0.52-1.25 mg/dL Normal Creatinine 1.08 LAB GF3BR >60 mL/min eGFR > 60.0 LAB GF3WR >60 mL/min eGFR OTHER 50.5 Result Comment: Source- MDRD equation with creatinine calibration to IDMS(NKDEP) eGFR not recommended for drug dose adjustment LAB CA3 8.4-10.4 mg/dL Normal Calcium 9.1 Performed By: #### BMP3, APTT #### [facility] [address] [phone] APTT Collected: 06/18/2018 Status: F Source: [employer] 10:05 AM SYSTEM REPOSITORY TYPE CODE TESTS RESULT OUT OF RANGE REFERENCE UNITS LAB PTTA 20.0-30.5 s High APTT 115.6 Result Comment: NOTE: The therapeutic time for Heparin anticoagulation, based on Xa activity inhibition, is an APTT of 46-80 seconds. Performed By: #### KETT, FT4M, VOLS, APTT #### [facility] [address] [place] [address] BASIC METABOLIC PANEL Collected: 06/18/2018 Status: F Source: [employer] 10:05 AM SYSTEM REPOSITORY TYPE CODE TESTS RESULT OUT OF RANGE REFERENCE UNITS LAB NA3 137-145 mmol/L Low Sodium 128 LAB K3 3.5-5.1 mmol/L Normal Potassium 4.2 LAB CL3 98-107 mmol/L Low Chloride 97 LAB CO23 22-30 mmol/L Low Carbon Dioxide 17 LAB ANIN3 NA Anion Gap 14 LAB GLUC3 70-100 mg/dL High Glucose 164 LAB BUN3 7-20 mg/dL High Urea Nitrogen 38 LAB CRET3 0.52-1.25 mg/dL High Creatinine 1.87 LAB GF3BR >60 mL/min eGFR 32.5 LAB GF3WR >60 mL/min eGFR OTHER 26.8 Result Comment: Source- MDRD equation with creatinine calibration to IDMS(NKDEP) eGFR not recommended for drug dose adjustment LAB CA3 8.4-10.4 mg/dL Normal Calcium 9.5 Performed By: #### BMP3, ICA, HEMOG, APTT #### [facility] [address] [place] [address] [address] ABDOMEN/PELVIS W/O Observed: 06/18/2018 Status: F Source: [employer] CONTRAST 9:29 AM SYSTEM REPOSITORY Patient Name: REGINA PEREIRA CT Exam Date/Time 06/18/2018 08:51:[address] Abdomen/Pelvis (No PO, No IV) Ordering Physician JESSICA HIDALGO Accession Number [id number] CPT4 Codes 30313 (CT Abdomen/Pelvis (No PO, No IV)) Reason For Exam rosy, abdominal pain Report HISTORY: Abdominal pain hypotension renal insufficiency Noncontrast sections are performed through the abdomen and pelvis. Just included sections through the lung bases show some streak-like densities suggesting old scarring. Sections extending into the abdomen show fatty infiltration liver with somewhat cirrhotic shape of the liver with relative enlargement left lobe compared to the right. Kidneys show no abnormal calcifications or focal masses or hydronephrosis. Adrenal regions are negative. Normal size spleen. Pancreas shows no definite abnormality. Tiny fat-containing umbilical hernia Sections of the pelvis show absent uterus. Bai catheter in urinary bladder which is decompressed. No masses or free fluid are seen. Moderate degenerative changes spine with scoliosis and remote compression fracture superior endplate L1 with osteopenia. IMPRESSION: No significant acute findings as discussed above Report Dictated on Final Dictated: 06/18/2018 9:29 am Dictating Physician: MD ELLIOTT WILLIAM Signed Date and Time: 06/18/2018 9:36 am Signed by: MD ELLIOTT WILLIAM Transcribed Date and Time: 06/18/2018 9:29 ECHO COMPLETE W/WO Observed: 06/18/2018 Status: F Source: [employer] 9:21 AM SYSTEM REPOSITORY Patient Name: REGINA PEREIRA Ultrasound Exam Date/Time 06/18/2018 10:19:15 EST Exam Echo Complete w/wo Contrast Ordering Physician JONES JARQUIN JUDITH A. Accession Number [id number] Reason For Exam elevated troponin, back pain Report TRANSTHORACIC ECHOCARDIOGRAM PATIENT: Regina Pereira STUDY DATE: 06/18/2018 : 1950 AGE: 67 HT/WT: 175.3 cm (69 117.5 kg (258.5 in) lb) GENDER: F BP: 109 / 67 LOCATION: [facility] PATIENT Inpatient [facility] STATUS: *ORDERING PHYSICIAN: * Amy Jarquin *READING PHYSICIAN: * Remington Horn DO, *CONTRACT ADMINISTRATION MANAGER: * Marleen Ibrahim [facility], [facility] --- INDICATIONS: Chest Pain. Elevated troponin. --- CONCLUSIONS SUMMARY: 1. Left ventricle: Systolic function is hyperdynamic by the biplane method of disks. The estimated ejection fraction is 86%. 2. Right ventricle: Systolic function is normal. Right ventricular systolic pressure is moderately increased. 3. Left atrium: The atrium is mildly dilated. 4. Right atrium: The atrium is normal in size. 5. Aortic valve: There is mild stenosis. Mean gradient (S): 9 mm Hg. Peak gradient (S): 18 mm Hg. 6. Tricuspid valve: There is mild, 1+ regurgitation. 7. Aorta: The aorta is normal. 8. Pericardium, extracardiac: A prominent pericardial fat pad is present. A trivial pericardial effusion is identified. --- STUDY DATA: Complete transthoracic echocardiogram. Procedure: Image quality was suboptimal. The study was technically limited due to poor patient compliance, restricted patient mobility, body habitus, and patient unable to be in left lateral position, so test was done supine. Intravenous imaging enhancement (Definity) was administered to opacify the chamber. Definity lot #: [id number]. M-mode, complete 2D, complete spectral Doppler, and color flow Doppler images were acquired and archived for permanent storage and are available for subsequent review. Study status: Routine. Patient status: Inpatient. --- FINDINGS LEFT VENTRICLE: The cavity size is normal. Wall thickness is mildly increased. Systolic function is hyperdynamic by the biplane method of disks. The estimated ejection fraction is 86%. There are no regional wall motion abnormalities. Doppler parameters are consistent with abnormal left ventricular relaxation (grade 1 diastolic dysfunction). RIGHT VENTRICLE: Not well visualized. The cavity size is normal. Wall thickness not seen. Systolic function is normal. Right ventricular systolic pressure is moderately increased. VENTRICULAR SEPTUM: There is no evidence of a ventricular septal defect. LEFT ATRIUM: The atrium is mildly dilated. RIGHT ATRIUM: The atrium is normal in size. ATRIAL SEPTUM: Color Doppler shows no evidence of shunt. MITRAL VALVE: Structurally normal valve. Doppler: There is trivial, less than 1+ regurgitation. Peak gradient (D): 3 mm Hg. AORTIC VALVE: Trileaflet; mildly thickened, mildly calcified leaflets. Doppler: There is mild stenosis. There is no regurgitation. Dimensionless index: 0.86. Valve area (VTI): 3.3 cm2. Indexed valve area (VTI): 1.3 cm2/m2. Mean gradient (S): 9 mm Hg. Peak gradient (S): 18 mm Hg. Peak velocity (S): 2.1 m/sec. TRICUSPID VALVE: Structurally normal valve. Doppler: There is mild, 1+ regurgitation. PULMONIC VALVE: Not well visualized. Structurally normal valve. Doppler: There is trivial, less than 1+ regurgitation. AORTA: The aorta is normal. PULMONARY ARTERY: Main pulmonary artery: Normal. PERICARDIUM: A prominent pericardial fat pad is present. A trivial pericardial effusion is identified. SYSTEMIC VEINS: Inferior vena cava: The vessel is normal. The IVC collapses by greater than 50% with inspiration. Diameter: 2.1 cm. Hepatic veins: The flow pattern is normal. --- Measurements IVC Value 07/25/2016 Reference ID 2.1 cm ------- -- Left ventricle Value 07/25/2016 Reference LV ID, ED 4.2 cm 3.6 3.9 - 5.3 LV ID, ES 2.7 cm 2.7 ------- -- LV PW thickness, ED (H) 1.0 cm 1.4 0.6 - 0.9 LV end-diastolic volume, 1-p A4C 67 ml 56 - 104 LV end-systolic volume, 1-p A4C (L) 12 ml 19 - 49 LV end-diastolic volume, 2-p 71 ml 47 56 - 104 LV end-systolic volume, 2-p (L) 10 ml 16 19 - 49 LV ejection fraction, 2-p 86 % 55 >=55 LV E/e', lateral 10 11.4 ------- -- LV E/e', medial 8.9 11.2 ------- -- LV E/e', average 9.4 11.3 ------- -- Ventricular septum Value 07/25/2016 Reference IVS thickness, ED (H) 1.3 cm 1.3 0.6 - 0.9 LVOT Value 07/25/2016 Reference LVOT ID, A-P 2.2 cm 2.3 ------- -- LVOT mean velocity, S 0.9 m/sec ------- -- LVOT VTI, S 26.4 cm 13.2 ------- -- LVOT peak gradient, S 7 mm Hg ------- -- Stroke volume (SV), LVOT DP 101 ml 57 ------- -- Stroke index (SV/bsa), LVOT DP 42 ml/m2 24 -------- - Aortic valve Value 07/25/2016 Reference Aortic valve peak velocity, S 2.1 m/sec 1 ------- -- Aortic valve mean velocity, S 1.3 m/sec 0.7 ------- -- Aortic valve VTI, S 30.8 cm 13.1 ------- -- Aortic mean gradient, S 9 mm Hg 2 ------- -- Aortic peak gradient, S 18 mm Hg 4 ------- -- DI 0.86 1.01 ------- -- Aortic valve area, VTI 3.3 cm2 4.4 -------- - Aortic valve area/bsa, VTI 1.3 cm2/m2 1.8 --------- Aorta Value 07/25/2016 Reference Aortic root ID 3.2 cm <4.5 Aortic root ID, ED (sinus) 3.2 cm <4.5 Aortic root ID, STJ, ED 2.7 cm 2.3 ------- -- Ascending aorta ID, A-P 3.0 cm ------- -- Ascending aorta ID, A-P, S 3.0 cm 2.8 ------- -- Left atrium Value 07/25/2016 Reference LA volume/bsa, ES, 2-p 21 ml/m2 -------- - Mitral valve Value 07/25/2016 Reference Mitral E-wave peak velocity 0.8 m/sec 0.7 ------- -- Mitral A-wave peak velocity 1.3 m/sec 1.3 ------- -- Mitral deceleration time 279 ms 282 ------- -- Mitral peak gradient, D 3 mm Hg 2 ------- -- Mitral E/A ratio, peak 0.6 0.6 ------- -- Pulmonary arteries Value 07/25/2016 Reference PA pressure, S, DP 54 mm Hg ------- -- Tricuspid valve Value 07/25/2016 Reference Tricuspid regurg peak velocity 3.6 m/sec 3.4 ------- -- Tricuspid peak RV-RA gradient 51 mm Hg 47 ------- -- Right atrium Value 07/25/2016 Reference RA area, ES, A4C (H) 25 cm2 15 10 - 18 Systemic veins Value 07/25/2016 Reference Estimated RAP 3 mm Hg ------- -- Right ventricle Value 07/25/2016 Reference RV ID, minor axis, ED, A4C base 3.5 cm 4.0 2.4 - 4.2 RV ID, minor axis, ED, A4C mid 3.1 cm 2.7 2.0 - 3.5 TAPSE 2.9 cm ------- -- RV pressure, S, DP 54 mm Hg ------- -- RV s', lateral, S 0.22 m/sec ------- -- Legend: (L) and (H) alejandra values outside specified reference range. Electronically signed by Remington Horn DO, FS, [facility] 06/18/2018 12:43 Final Dictated: 06/18/2018 12:43 pm Dictating Physician: DO HORN JOSEPH Signed Date and Time: 06/18/2018 12:43 pm Signed by: DO HORN JOSEPH LACTIC ACID Collected: 06/18/2018 Status: F Source: [employer] 6:40 AM SYSTEM REPOSITORY TYPE CODE TESTS RESULT OUT OF RANGE REFERENCE UNITS LAB LACT3 0.7-2.0 mmol/L Normal Lactic Acid 0.7 Performed By: #### LACT3 #### [facility] [address] [place] [phone] TROPONIN I Collected: 06/18/2018 Status: F Source: [employer] 6:40 AM SYSTEM REPOSITORY TYPE CODE TESTS RESULT OUT OF REFERENCE UNITS RANGE LAB TROP4 0.000-0.034 ng/mL High Troponin I 0.134 Result Comment: 0.046 - 0.400 = Indeterminate > 0.400 = Consider Myocardial Injury Performed By: #### TROPN #### [facility] [address] [place] [phone] Observed: 06/18/2018 Status: F Source: [employer] LEGIONELLA AG, URINE 5:29 AM SYSTEM REPOSITORY Order Comment: Specimen Source Comment:Urine, clean catch LEGIONELLA AG, URINE --> Status: F Legionella antigen NOT DETECTED. Performed By: #### SRIDEVI SORIA #### [facility] [address] [place], [place] Observed: 06/18/2018 Status: F Source: [employer] STREP PNEUMO ANTIGEN, 5:29 AM SYSTEM REPOSITORY URINE Order Comment: Specimen Source Comment:Urine, clean catch STREP PNEUMO ANTIGEN, URINE --> Status: F Strep pneumo antigen NOT DETECTED. Performed By: #### SRIDEVI SORIA #### [facility] [address], [place] CR CHEST PORTABLE Observed: 06/18/2018 Status: F Source: [employer] 4:04 AM SYSTEM REPOSITORY Patient Name: REGINA PEREIRA Diagnostic Radiology Exam Date/Time 06/18/2018 03:38:53 EST Exam CR Chest Portable Ordering Physician KIMBERLI BRYANT Accession Number [id number] CPT4 Codes 43527 () Reason For Exam line placment Report PORTABLE CHEST CLINICAL INDICATION: Line placement. COMPARISON: 06/17/2018. TECHNIQUE: A single frontal view of thorax was obtained and reviewed. IMPRESSION: 1. Lines/ tubes/ devices: Left IJ central venous catheter tip at innominate SVC junction. 2. Lungs and Pleura: Minimal right basilar atelectasis. No acute consolidation. No pneumothorax. Trace left pleural effusion. Thoracic aorta is unfolded. 3. Heart and mediastinum: Mild cardiomegaly is stable. 4. Bones: Normal osseous structures. Report Dictated on Workstation: [id number] Final Dictated: 06/18/2018 4:04 am Dictating Physician: UYEN MARIN DO, I Signed Date and Time: 06/18/2018 4:06 am Signed by: UYEN MARIN DO, I Transcribed Date and Time: 06/18/2018 4:04 ARTERIAL BLOOD GASES Collected: 06/18/2018 Status: F Source: [employer] 3:52 AM SYSTEM REPOSITORY TYPE CODE TESTS RESULT OUT OF REFERENCE UNITS RANGE LAB HGBG ScreenOnly g/dL Hemoglobin 11.3 LAB PHG 7.350-7.450 NA Low pH 7.226 LAB PCO2 35.0-45.0 mm[Hg] Low pCO2 34.4 LAB PO2 80.0-100.0 mm[Hg] Low pO2 79.1 LAB HCO3 21.0-25.0 mmol/L Low HCO3 14.0 LAB TCO2 23.0-27.0 mmol/L Low TCO2 15.0 LAB SBE -3.0-3.0 mmol/L Low Std Base Excess -12.6 LAB O2SAT 95.0-100.0 % Low O2 Saturation 94.1 LAB FIO2 NA FIO2 2L Performed By: #### ABG #### [facility] [address] [phone] CALCIUM,IONIZED Collected: 06/18/2018 Status: F Source: [employer] 3:35 AM SYSTEM REPOSITORY TYPE CODE TESTS RESULT OUT OF REFERENCE UNITS RANGE LAB ICAL 4.30-5.20 mg/dL Low Ionized 3.80 Ca,Measured LAB PHICA 7.31-7.46 NA Low pH, Ionized 7.19 Calcium Performed By: #### ICA, HEMDF, APTT, PT, MDIFF, CMP3M, MG3, PHOS3, TROPN, TSH5, HA1C2 #### [facility] [address] [place] [phone] HEMOGRAM W/ AUTODIFF Collected: 06/18/2018 Status: F Source: [employer] 3:35 AM SYSTEM REPOSITORY TYPE CODE TESTS RESULT OUT OF RANGE REFERENCE UNITS LAB IWBC 3.6-10.7 10*3/uL High WBC 12.7 LAB RBC 3.80-5.20 10*6/uL Low RBC 3.28 LAB HGB 11.7-16.0 g/dL Low Hemoglobin 10.6 LAB HCT 35.0-47.0 % Low Hematocrit 31.5 LAB MCV 79.0-98.0 fL MCV Normal 96.1 LAB MCH 26.0-34.0 pg MCH Normal 32.4 LAB MCHC 32.0-36.0 % MCHC Normal 33.7 LAB RDW 11.5-14.5 % High RDW 15.2 LAB PLT 140-440 10*3/uL Platelet Normal 291 LAB MPV 7.4-10.4 fL Low MPV 6.8 Performed By: #### ICA, HEMDF, APTT, PT, MDIFF, CMP3M, MG3, PHOS3, TROPN, TSH5, HA1C2 #### [facility] [address] [place] [phone] APTT Collected: 06/18/2018 Status: F Source: [employer] 3:35 AM SYSTEM REPOSITORY TYPE CODE TESTS RESULT OUT OF RANGE REFERENCE UNITS LAB PTTA 20.0-30.5 s Normal APTT 25.3 Result Comment: NOTE: The therapeutic time for Heparin anticoagulation, based on Xa activity inhibition, is an APTT of 46-80 seconds. Performed By: #### ICA, HEMDF, APTT, PT, MDIFF, CMP3M, MG3, PHOS3, TROPN, TSH5, HA1C2 #### [facility] [address] [place] [phone] PROTHROMBIN TIME Collected: 06/18/2018 Status: F Source: [employer] 3:35 AM SYSTEM REPOSITORY TYPE CODE TESTS RESULT OUT OF REFERENCE UNITS RANGE LAB PROTM 9.0-12.0 s Prothrombin Normal Time 9.7 Result Comment: . LAB INR 0.9-1.1 NA Normal INR 0.9 Result Comment: Recommended Anticoagulant Therapy: SEE BELOW ----- INR of 2.0 - 3.0 : - Prophylaxis of Venous Thrombosis (high-risk surgery) - Treatment of Venous Thrombosis - Treatment of Pulmonary Embolism (Includes tissue heart valves, Acute Myocardial Infarction to prevent systemic embolism, Valvular Heart Disease, and Atrial Fibrillation) ----- INR of 2.5 - 3.5 : - Mechanical Prosthetic Valves (high risk) - If oral anticoagulant therapy is used to prevent Myocardial Infarction Performed By: #### ICA, HEMDF, APTT, PT, MDIFF, CMP3M, MG3, PHOS3, TROPN, TSH5, HA1C2 #### [facility] [address] [place] [phone] MANUAL DIFF Collected: 06/18/2018 Status: F Source: [employer] 3:35 AM SYSTEM REPOSITORY TYPE CODE TESTS RESULT OUT OF RANGE REFERENCE UNITS LAB NEUTR 40-80 % High Seg Neutrophils 84 LAB BANDS 0-3 % High Bands 4 LAB LYMPH 20-40 % Low Lymphocytes 5 LAB MONOC 2-10 % Monocytes Normal 5 LAB EO 1-6 % Low Eosinophils 0 LAB BASO 0-2 % Basophils Normal 0 LAB META <1 % Metamyelocytes Abnormal 2 LAB ANCM 2.2-8.2 10*3/uL High Abs Neutrophile Cnt 11.2 LAB ALCM 1.1-4.5 10*3/uL Low Abs Lymph Cnt 0.6 LAB AMCM 0.2-1.1 10*3/uL Abs Monocyte Cnt Normal 0.6 LAB AECM 0.0-0.5 10*3/uL Abs Eosin Cnt Normal 0.0 LAB ABCM 0.0-0.2 10*3/uL Abs Baso Cnt Normal 0.0 LAB RBMOR NA RBC Morphology ABNORMAL LAB ANISO NA Anisocytosis Slight LAB POIK NA Poikilocytosis Slight LAB MICRO NA Microcytosis Slight LAB OVAL NA Ovalocytes Slight LAB TEARD NA Tear Drop Forms Slight LAB LIMIT NA Cells counted 100 Performed By: #### ICA, HEMDF, APTT, PT, MDIFF, CMP3M, MG3, PHOS3, TROPN, TSH5, HA1C2 #### [facility] [address] [place] [phone] COMP PANEL WITH MG Collected: 06/18/2018 Status: F Source: [employer] REFLEX 3:35 AM SYSTEM REPOSITORY TYPE CODE TESTS RESULT OUT OF RANGE REFERENCE UNITS LAB NA3 137-145 mmol/L Low Sodium 126 LAB K3 3.5-5.1 mmol/L Normal Potassium 4.0 LAB CL3 98-107 mmol/L Low Chloride 94 LAB CO23 22-30 mmol/L Low Carbon Dioxide 14 LAB ANIN3 NA Anion Gap 18 LAB GLUC3 70-100 mg/dL Glucose Normal 91 LAB BUN3 7-20 mg/dL High Urea Nitrogen 48 LAB CRET3 0.52-1.25 mg/dL High Creatinine 3.84 LAB GF3BR >60 mL/min eGFR 14.2 LAB GF3WR >60 mL/min eGFR OTHER 11.7 Result Comment: Source- MDRD equation with creatinine calibration to IDMS(NKDEP) eGFR not recommended for drug dose adjustment LAB CA3 8.4-10.4 mg/dL Calcium Normal 8.5 LAB ALB3 3.5-5.0 g/dL Albumin, Serum Normal 4.2 LAB TP3 6.3-8.2 g/dL Low Total Protein 6.2 LAB BILT3 0.2-1.3 mg/dL Normal Bilirubin,Total 0.6 LAB ALKP3 38-126 U/L Alkaline Normal Phosphatase 55 LAB ALT3 13-69 U/L ALT (SGPT) Normal 54 LAB AST3 15-46 U/L High AST (SGOT) 112 Performed By: #### ICA, HEMDF, APTT, PT, MDIFF, CMP3M, MG3, PHOS3, TROPN, TSH5, HA1C2 #### [facility] [address] [place] [phone] MAGNESIUM Collected: 06/18/2018 Status: F Source: [employer] 3:35 AM SYSTEM REPOSITORY TYPE CODE TESTS RESULT OUT OF RANGE REFERENCE UNITS LAB MG3 1.6-2.3 mg/dL Normal Magnesium 2.0 Performed By: #### ICA, HEMDF, APTT, PT, MDIFF, CMP3M, MG3, PHOS3, TROPN, TSH5, HA1C2 #### [facility] [address] [place] [address] PHOSPHORUS Collected: 06/18/2018 Status: F Source: [employer] 3:35 AM SYSTEM REPOSITORY TYPE CODE TESTS RESULT OUT OF REFERENCE UNITS RANGE LAB PHOS3 2.5-4.5 mg/dL High Phosphorus 9.8 Performed By: #### ICA, HEMDF, APTT, PT, MDIFF, CMP3M, MG3, PHOS3, TROPN, TSH5, HA1C2 #### [facility] [address] [place] [address] TROPONIN I Collected: 06/18/2018 Status: F Source: [employer] 3:35 AM SYSTEM REPOSITORY TYPE CODE TESTS RESULT OUT OF REFERENCE UNITS RANGE LAB TROP4 0.000-0.034 ng/mL High Troponin I 0.169 Result Comment: 0.046 - 0.400 = Indeterminate > 0.400 = Consider Myocardial Injury Performed By: #### ICA, HEMDF, APTT, PT, MDIFF, CMP3M, MG3, PHOS3, TROPN, TSH5, HA1C2 #### [facility] [address] [place] [address] THYROID STIM. Collected: 06/18/2018 Status: F Source: [employer] HORMONE 3:35 AM SYSTEM REPOSITORY TYPE CODE TESTS RESULT OUT OF REFERENCE UNITS RANGE LAB TSH5 0.465-4.680 u[IU]/mL High Thyroid Stim. 5.098 Hormone Performed By: #### ICA, HEMDF, APTT, PT, MDIFF, CMP3M, MG3, PHOS3, TROPN, TSH5, HA1C2 #### [facility] [address] [place] [address] HEMOGLOBIN A1C Collected: 06/18/2018 Status: F Source: [employer] 3:35 AM SYSTEM REPOSITORY TYPE CODE TESTS RESULT OUT OF RANGE REFERENCE UNITS LAB A1C2 4.0-5.7 % Normal Hemoglobin A1C 5.7 Result Comment: --HgbA1C levels may not be accurate in patients who have renal disease, received recent blood transfusions, are anemic, or who have dyshemoglobinemia. LAB EAG2 mg/dL Estimated Avg Glucose 117 Performed By: #### ICA, HEMDF, APTT, PT, MDIFF, CMP3M, MG3, PHOS3, TROPN, TSH5, HA1C2 #### [facility] [address] [place] [address] LACTIC ACID Collected: 06/18/2018 Status: F Source: [employer] 3:35 AM SYSTEM REPOSITORY TYPE CODE TESTS RESULT OUT OF RANGE REFERENCE UNITS LAB LACT3 0.7-2.0 mmol/L Normal Lactic Acid 0.9 Performed By: #### LACT3 #### [facility] [address] [place] [address] KETONES, QUANT BLOOD Collected: 06/18/2018 Status: F Source: [employer] 3:34 AM SYSTEM REPOSITORY TYPE CODE TESTS RESULT OUT OF RANGE REFERENCE UNITS LAB KETT Negative mg/dL Normal Negative Ketones, Quant Blood Performed By: #### KETT, FT4M, VOLS, APTT #### [facility] [address] [place] [address] FREE T4 Collected: 06/18/2018 Status: F Source: [employer] 3:34 AM SYSTEM REPOSITORY TYPE CODE TESTS RESULT OUT OF RANGE REFERENCE UNITS LAB FT4M 0.78-2.19 ng/dL Normal Free T4 0.90 Performed By: #### KETT, FT4M, VOLS, APTT #### [facility] [address] [place] [address] VOLATILE PANEL,SERUM Collected: 06/18/2018 Status: F Source: [employer] 3:34 AM SYSTEM REPOSITORY TYPE CODE TESTS RESULT OUT OF RANGE REFERENCE UNITS LAB METHS NA Normal NONE DETECTED Methanol,Se rum Result Comment: Toxic >20 mg/dL Reporting Limit 5 mg/dL NOTE:These results are for medical treatment only. Analysis performed using non-forensic procedures. LAB ISOS mg/dL Isopropanol,Serum Normal NONE DETECTED Result Comment: Toxic>150 Reporting Limit 5 mg/dL NOTE:These results are for medical treatment only. Analysis performed using non-forensic procedures. LAB ACETS 0.0-20.0 mg/dL Acetone,Serum Normal < 5.0 Result Comment: Toxic>20 Reporting Limit 5 mg/dL NOTE:These results are for medical treatment only. Analysis performed using non-forensic procedures. LAB ETOHS Normal Ethanol,Serum NONE DETECTED Result Comment: Reporting limit 0.01g/dL NOTE:These results are for medical treatment only. Analysis performed using non-forensic procedures. Performed By: #### KETT, FT4M, VOLS, APTT #### [facility] [address] [place] [address] Observed: 06/18/2018 Status: F Source: [employer] RESPIRATORY PCR PANEL 3:34 AM SYSTEM REPOSITORY Order Comment: Specimen Source Comment:Nasopharyngeal RESPIRATORY PCR PANEL --> Status: F NEGATIVE: No targets were detected by the [email or web address] Upper Respiratory Pathogens PCR Panel. The [employer] Upper Respiratory Pathogens PCR Panel detects the following targets: Adenovirus Coronavirus 229E Coronavirus HKU1 Coronavirus NL63 Coronavirus OC43 Human Metapneumovirus Human Rhinovirus/Enterovirus Influenza A Influenza B Parainfluenza Virus 1 Parainfluenza Virus 2 Parainfluenza Virus 3 Parainfluenza Virus 4 Respiratory Syncytial Virus Bordetella pertussis Bordetella parapertussis Chlamydia pneumoniae Mycoplasma pneumoniae Respiratory Pathogens PCR Panel. The [employer] Upper Respiratory Pathogens PCR Panel detects the following targets: Adenovirus Coronavirus 229E Coronavirus HKU1 Coronavirus NL63 Coronavirus OC43 Human Metapneumovirus Human Rhinovirus/Enterovirus Influenza A Influenza B Parainfluenza Virus 1 Parainfluenza Virus 2 Parainfluenza Virus 3 Parainfluenza Virus 4 Respiratory Syncytial Virus Bordetella pertussis Bordetella parapertussis Chlamydia pneumoniae Mycoplasma pneumoniae Performed By: #### RESBF #### [facility] [address] [place] [address] GLUCOSE,BEDSIDE Collected: 06/18/2018 Status: F Source: [employer] 12:46 AM SYSTEM REPOSITORY TYPE CODE TESTS RESULT OUT OF RANGE REFERENCE UNITS LAB BGLU 70-100 mg/dL Normal 95 Glucose,Beds galdino Result Comment: Test performed by glucose meter. Results may be 10%-15% lower than serum/plasma values. (CLIA ID [id number]) Performed By: #### BGLU #### [facility] [address] [place] [address] CR CHEST PORTABLE Observed: 06/17/2018 Status: F Source: [employer] 10:31 PM SYSTEM REPOSITORY Patient Name: REGINA PEREIRA Diagnostic Radiology Exam Date/Time 06/17/2018 22:17:52 EST Exam CR Chest Portable Ordering Physician LELE JOHN Accession Number [id number] CPT4 Codes 28538 () Reason For Exam weakness Report SINGLE FRONTAL VIEW OF THE CHEST CLINICAL INDICATION: weakness TECHNIQUE: Single frontal view of the chest COMPARISON: 12/18/2016 FINDINGS: Mild cardiac enlargement. No focal infiltrate given soft tissue overlying lung bases. No vascular congestion. No effusion. IMPRESSION: 1. No acute finding. Report Dictated on Final Dictated: 06/17/2018 10:31 pm Dictating Physician: MD LÓPEZ JOHN R Signed Date and Time: 06/17/2018 10:32 pm Signed by: MD LÓPEZ JOHN R Transcribed Date and Time: 06/17/2018 10:31 CT HEAD OR BRAIN W/O Observed: 06/17/2018 Status: F Source: [employer] CONTRAST 10:17 PM SYSTEM REPOSITORY Patient Name: REGINA PEREIRA CT Exam Date/Time 06/17/2018 22:18:[address] Head or Brain w/o Contrast Ordering Physician [id number] GALLARDO LELE Accession Number [id number] CPT4 Codes 22436 () Reason For Exam altered mental status Report HEAD CT WITHOUT IV CONTRAST History: Change in mental status Comparison: 09/19/2013 Technique: Axial and multiplanar sagittal and coronal reconstruction CT images obtained from the base to the vertex of the brain without IV contrast enhancement Findings: There is mild parenchymal volume loss with prominent cortical sulci and fissures. The ventricles are normal in size for age. There is mild periventricular hypodensities suggesting chronic ischemic white matter changes. There is no intracranial hemorrhage, mass effect, or midline shift in the brain. The exam is limited without IV contrast enhancement. . There are atherosclerotic carotid siphons calcifications. The visualized parts of the paranasal sinuses and mastoid air cells are clear. IMPRESSION: Mild parenchymal volume loss . Mild chronic ischemic white matter changes. [ No evidence of acute intracranial process ] Report Dictated on Final Dictated: 06/17/2018 10:17 pm Dictating Physician: MD DENT AHMAD Signed Date and Time: 06/17/2018 10:23 pm Signed by: MD DENT AHMAD Transcribed Date and Time: 06/17/2018 10:17 Observed: 06/17/2018 Status: F Source: Splice BLOOD (TWO) 9:40 PM SYSTEM REPOSITORY Order Comment: Specimen Source Comment:Blood CULTURE BLOOD (Two) --> Status: F No growth at 5 days. Performed By: #### C/BLT #### [facility] [address] [place] [phone] HEMOGRAM Collected: 06/17/2018 Status: F Source: [employer] 9:35 PM SYSTEM REPOSITORY TYPE CODE TESTS RESULT OUT OF RANGE REFERENCE UNITS LAB IWBC 3.6-10.7 10*3/uL High WBC 13.3 LAB RBC 3.80-5.20 10*6/uL Low RBC 3.79 LAB HGB 11.7-16.0 g/dL Normal Hemoglobin 12.2 LAB HCT 35.0-47.0 % Normal Hematocrit 36.2 LAB MCV 79.0-98.0 fL MCV Normal 95.7 LAB MCH 26.0-34.0 pg MCH Normal 32.1 LAB MCHC 32.0-36.0 % MCHC Normal 33.6 LAB RDW 11.5-14.5 % High RDW 15.0 LAB PLT 140-440 10*3/uL Platelet Normal 297 LAB MPV 7.4-10.4 fL Low MPV 7.0 Performed By: #### HEMOG, PT, LACT3, SAL33, CMP3, MG3, TROPN, ETOH4, ACET4 #### [facility] [address] [place] [address] PROTHROMBIN TIME Collected: 06/17/2018 Status: F Source: [employer] 9:35 PM SYSTEM REPOSITORY TYPE CODE TESTS RESULT OUT OF REFERENCE UNITS RANGE LAB PROTM 9.0-12.0 s Prothrombin Normal Time 9.8 Result Comment: . LAB INR 0.90-1.10 NA Normal INR 0.97 Result Comment: Recommended Anticoagulant Therapy: SEE BELOW ----- INR of 2.0 - 3.0 : - Prophylaxis of Venous Thrombosis (high-risk surgery) - Treatment of Venous Thrombosis - Treatment of Pulmonary Embolism (Includes tissue heart valves, Acute Myocardial Infarction to prevent systemic embolism, Valvular Heart Disease, and Atrial Fibrillation) ----- INR of 2.5 - 3.5 : - Mechanical Prosthetic Valves (high risk) - If oral anticoagulant therapy is used to prevent Myocardial Infarction Performed By: #### HEMOG, PT, LACT3, SAL33, CMP3, MG3, TROPN, ETOH4, ACET4 #### [facility] [address] [place] [address] LACTIC ACID Collected: 06/17/2018 Status: F Source: [employer] 9:35 PM SYSTEM REPOSITORY TYPE CODE TESTS RESULT OUT OF REFERENCE UNITS RANGE LAB LACT3 0.7-2.0 mmol/L High Alert Lactic Acid 2.3 Performed By: #### HEMOG, PT, LACT3, SAL33, CMP3, MG3, TROPN, ETOH4, ACET4 #### [facility] [address] [place] [address] SALICYLATES Collected: 06/17/2018 Status: F Source: [employer] 9:35 PM SYSTEM REPOSITORY TYPE CODE TESTS RESULT OUT OF RANGE REFERENCE UNITS LAB SAL3 0.0-20.0 mg/dL Salicylates Normal < 1.0 Performed By: #### HEMOG, PT, LACT3, SAL33, CMP3, MG3, TROPN, ETOH4, ACET4 #### [employer] [facility] [address] [place] [address] COMP METABOLIC PANEL Collected: 06/17/2018 Status: F Source: [employer] 9:35 PM SYSTEM REPOSITORY TYPE CODE TESTS RESULT OUT OF RANGE REFERENCE UNITS LAB NA3 137-145 mmol/L Low Sodium 126 LAB K3 3.5-5.1 mmol/L Normal Potassium 4.2 LAB CL3 98-107 mmol/L Low Chloride 89 LAB CO23 22-30 mmol/L Low Carbon Dioxide 15 LAB ANIN3 NA Anion Gap 22 LAB GLUC3 70-100 mg/dL Glucose Normal 95 LAB BUN3 7-20 mg/dL High Urea Nitrogen 49 LAB CRET3 0.52-1.25 mg/dL High Creatinine 5.10 LAB GF3BR >60 mL/min eGFR 10.2 LAB GF3WR >60 mL/min eGFR OTHER 8.4 Result Comment: Source- MDRD equation with creatinine calibration to IDMS(NKDEP) eGFR not recommended for drug dose adjustment LAB CA3 8.4-10.4 mg/dL Calcium Normal 8.9 LAB ALB3 3.5-5.0 g/dL Albumin, Serum Normal 3.9 LAB TP3 6.3-8.2 g/dL Total Protein Normal 6.4 LAB BILT3 0.2-1.3 mg/dL Normal Bilirubin,Total 0.6 LAB ALKP3 38-126 U/L Alkaline Normal Phosphatase 58 LAB ALT3 13-69 U/L High ALT (SGPT) 71 LAB AST3 15-46 U/L High AST (SGOT) 138 Performed By: #### HEMOG, PT, LACT3, SAL33, CMP3, MG3, TROPN, ETOH4, ACET4 #### [facility] [facility] [address] [place] [address] MAGNESIUM Collected: 06/17/2018 Status: F Source: [employer] 9:35 PM SYSTEM REPOSITORY TYPE CODE TESTS RESULT OUT OF RANGE REFERENCE UNITS LAB MG3 1.6-2.3 mg/dL Normal Magnesium 1.9 Performed By: #### HEMOG, PT, LACT3, SAL33, CMP3, MG3, TROPN, ETOH4, ACET4 #### [facility] [place] [address] TROPONIN I Collected: 06/17/2018 Status: F Source: [employer] 9:35 PM SYSTEM REPOSITORY TYPE CODE TESTS RESULT OUT OF REFERENCE UNITS RANGE LAB TROP4 0.000-0.034 ng/mL High Troponin I 0.350 Result Comment: 0.046 - 0.400 = Indeterminate > 0.400 = Consider Myocardial Injury Performed By: #### HEMOG, PT, LACT3, SAL33, CMP3, MG3, TROPN, ETOH4, ACET4 #### [facility] [place] [address] ETHANOL SERUM/PLASMA Collected: 06/17/2018 Status: F Source: [employer] 9:35 PM SYSTEM REPOSITORY TYPE CODE TESTS RESULT OUT OF RANGE REFERENCE UNITS LAB ETOH3 0.000-0.010 g/dL Normal < 0.010 Ethanol-Seru m/Plasma Result Comment: NOTE: This result is for medical treatment only. Analysis performed using non-forensic procedures. Performed By: #### HEMOG, PT, LACT3, SAL33, CMP3, MG3, TROPN, ETOH4, ACET4 #### [facility] [place] [address] ACETAMINOPHEN Collected: 06/17/2018 Status: F Source: [employer] 9:35 PM SYSTEM REPOSITORY TYPE CODE TESTS RESULT OUT OF REFERENCE UNITS RANGE LAB ACET3 10.0-30.0 ug/mL Acetaminophen Normal < 10.0 Performed By: #### HEMOG, PT, LACT3, SAL33, CMP3, MG3, TROPN, ETOH4, ACET4 #### [facility] [place] [address] URINALYSIS,MACRO Collected: 06/17/2018 Status: F Source: [employer] 9:35 PM SYSTEM REPOSITORY TYPE CODE TESTS RESULT OUT OF REFERENCE UNITS RANGE LAB APPUR Clear NA Appearance Sl. Cloudy LAB COLUR Lt. Yellow NA Color Dark Yellow LAB USG 1.005-1.030 NA Specific Normal [place],Urine 1.020 LAB UPH 5.0-8.0 NA pH,Urine Normal 5.0 LAB ULUK Negative NA Leukocytes Trace LAB UNIT Negative NA Nitrites NEG LAB UPRO Negative mg/dL Total Protein,Urine Trace (15) LAB UGLU Negative mg/dL Glucose,Urine NEG (Normal) LAB UKET Negative mg/dL Ketone,Urine Negative LAB UURO 0-1 mg/dL Urobilinogen Normal (0.2) LAB UBIL Negative NA Bilirubin,Ur 1 + LAB UBLD Negative {RBC}/uL Occult Blood,Ur Trace Performed By: #### UAMAC, DRGA4, UAMIC #### [facility] [email or web address] [facility] [address] [place] [address] DRUGS OF ABUSE Collected: 06/17/2018 Status: F Source: [facility] [employer] 9:35 PM SYSTEM REPOSITORY TYPE CODE TESTS RESULT OUT OF REFERENCE UNITS RANGE LAB AMP3 NA Amphetamines, Ur Negative LAB BARB3 NA Barbiturates, Ur Negative LAB BENZ3 NA Benzodiazepines, Negative Ur LAB COC3 NA Cocaine, Ur Negative LAB METH3 NA Methadone, Ur Negative LAB OPI3 NA Opiates, Ur Positive LAB OXY3 NA Oxycodone/Oxymorph Positive ine,Ur LAB PCP3 NA Phencyclidine (PCP), Ur Negative Result Comment: The expected value for all of the drugs listed above is Negative. The following drugs or drug groups have been screened for by Immunoassay at the following thresholds: Amphetamine class (1000 ng/mL), Barbiturates (200 ng/mL), Benzodiazepines (200 ng/mL), Cocaine (300 ng/mL), Methadone (300 ng/mL), Opiates (300 ng/mL), Oxycodone (100 ng/mL), and PCP (25 ng/mL). NOTE: These results are for medical treatment only. Analysis performed using non-forensic procedures. POSITIVE results are NOT confirmed by a more specific alternative method unless requested. If confirmation is needed, request confirmation under separate order. Performed By: #### UAMAC, DRGA4, UAMIC #### [facility] [email or web address] [facility] [address] [place] [address] URINALYSIS,MICROSCOPIC Collected: Status: F Source: [facility] 06/17/2018 9:35 PM HEALTH SYSTEM REPOSITORY TYPE CODE TESTS RESULT OUT OF REFERENCE UNITS RANGE LAB VOLUR NA 12 Volume,Urine ml LAB WBCU 0-5 /[HPF] 0 WBC,Urine - 2 LAB RBCU 0-2 /[HPF] 3 RBC,Urine - 5 LAB EPIU 3-5 /[HPF] 3 Epithelial Cells - 5 LAB ALICIA Negative NA Bacteria Negative Performed By: #### UAMAC, DRGA4, UAMIC #### [facility] [address] [place] [address] Observed: 06/17/2018 Status: F Source: [employer] [facility]INE 9:35 PM SYSTEM REPOSITORY Order Comment: Specimen Source Comment:Urine, clean catch CULTURE URINE --> Status: F No growth (<1,000 CFU/ml). Performed By: #### C/UR #### [facility] [address] [place] [address] Observed: 06/17/2018 Status: F Source: [employer] CULTURE BLOOD 9:30 PM SYSTEM REPOSITORY Order Comment: Specimen Source Comment:Blood CULTURE BLOOD --> Status: F No growth at 5 days. Performed By: #### C/BLD #### [facility] [address] [place] [address] ED PROVIDER NOTE Observed: 06/17/2018 Status: F Source: [employer] 9:09 PM SYSTEM REPOSITORY Triage Chief Complaint: Drug Overdose EKUK: Rgeina Pereira is a 67 y.o. female who presents to the emergency department via EMS due to altered mental status. The patient's is at the bedside and provides most of the history. He states that she has been experiencing progressing altered mental status for the past two days. 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 Today, she was difficult to arouse and frequently staring into space therefore EMS was called. He also notes that she has not been eating or drinking much recently. Her only complaint at this time is pain all over her body however she is not able to provide any further details regarding her symptoms as she frequently falls asleep during questioning. She has a history of chronic pain for which she takes percocet. Her notes that he did give her an extra dose of percocet this morning but her last dose was at 8am. She is otherwise compliant with her medications. ROS: Unable to obtain secondary to th patient's clinical status. Past Medical History: Diagnosis Date ? Chronic back pain ? DDD (degenerative disc disease), lumbar ? Depression ? Hx of blood clots ? Hypertension ? Scoliosis ? Thyroid disease Past Surgical History: Procedure Laterality Date ? SECTION ? HYSTERECTOMY No family history on file. Social History Social History ? Marital status: Spouse name: N/A ? Number of children: N/A ? Years of education: N/A Occupational History ? Not on file. Social History Main Topics ? Smoking status: Former Smoker ? Smokeless tobacco: Never Used ? Alcohol use No ? Drug use: No ? Sexual activity: Not on file Other Topics Concern ? Not on file Social History Narrative ? No narrative on file Current Facility-Administered Medications Medication Dose Route Frequency Provider Last Rate Last Dose ? vancomycin (VANCOCIN) 1,000 mg in dextrose 5 % 250 mL IVPB 1,000 mg Intravenous Once Lele Carrion MD 250 mL/hr at 06/17/182318 1,000 mg at 06/17/182318 ? piperacillin-tazobactam (ZOSYN) 4.5 g in dextrose 5 % 100 mL IVPB (mini-bag) 4.5 g Intravenous Once Lele Carrion MD Current Outpatient Prescriptions Medication Sig Dispense Refill ? rivaroxaban (XARELTO) 20 MG TABS tablet Take 20 mg by mouth ? lisinopril-hydrochlorothiazide (PRINZIDE;ZESTORETIC) 20- 25 MG per tablet TAKE ONE TABLET BY MOUTH EVERY DAY ? tiZANidine (ZANAFLEX) 4 MG tablet Take 1 tablet by mouth every 8 hours as needed (pain) 30 tablet 0 ? naproxen (NAPROSYN) 500 MG tablet Take 1 tablet by mouth 2 times daily for 7 days 14 tablet 0 ? lidocaine (LIDODERM) 5 % Place 1 patch onto the skin daily 12 hours on, 12 hours off. 30 patch 0 ? lisinopril-hydrochlorothiazide (PRINZIDE;ZESTORETIC) 10- 12.5 MG per tablet Take 1 tablet by mouth ? risperiDONE (RISPERDAL) 0.5 MG tablet Take 1 tablet by mouth 2 times daily 28 tablet 0 ? sertraline (ZOLOFT) 100 MG tablet Take 1 tablet by mouth daily 14 tablet 0 ? rivaroxaban (XARELTO) 15 MG TABS tablet Take 1 tablet by mouth 2 times daily (with meals) 42 tablet 0 No Known Allergies Nursing Notes Reviewed Physical Exam: ED Triage Vitals [06/17/182116] Enc Vitals Group BP (!) 64/33 Pulse 90 Resp 18 Temp 97.7 ?F (36.5 ?C) Temp Source Oral SpO2 98 % Weight Height Head Circumference Peak Flow Pain Score Pain Loc Pain Edu? Excl. in GC? GENERAL APPEARANCE: Drowsy but easily arousable, resting comfortably in bed at the time of my exam. The patient is obese. HEENT: Head is normocephalic and grossly atraumatic. The pupils are 3+ equally round bilaterally and reactive to light. Extraocular movements are grossly intact. There is no conjunctival pallor. Sclera are anicteric and noninjected. Mucous membranes of the mouth are dry. NECK: Trachea is midline. LUNGS: Clear to auscultation bilaterally without wheezing or rales. Good airflow. HEART: Regular rate and rhythm. S1-S2 noted. No murmurs auscultated. ABDOMEN: Abdomen was soft and nondistended. There was no tenderness to palpation. There is no guarding or rebound. There is no mass. There is no CVA tenderness to palpation. MSK/EXTREMITIES: No acute deformities. Normal strength bilaterally in upper and lower extremities. Peripheral pulses are present and symmetric bilaterally. There is no peripheral edema. SKIN: Warm and dry. NEUROLOGICAL: Patient is drowsy and falls asleep frequently with occasionally slurred speech and normal hearing. She is easily arousable. She is alert and oriented x 3. Otherwise responding and cooperating appropriately to exam. Face is symmetrical. I have reviewed and interpreted all of the currently available lab results from this visit (if applicable): Results for orders placed or performed during the hospital encounter of 06/17/18 Comprehensive Metabolic Panel Result Value Ref Range Sodium 126 (L) 137 - 145 mmol/L Potassium 4.2 3.5 - 5.1 mmol/L Chloride 89 (L) 98 - 107 mmol/L CO2 15 (L) 22 - 30 mmol/L Anion Gap 22 NA Glucose 95 70 - 100 mg/dL BUN 49 (H) 7 - 20 mg/dL CREATININE 5.10 (H) 0.52 - 1.25 mg/dL eGFR 10.2 >60 mL/min EGFR IF NonAfrican Cymro 8.4 >60 mL/min Calcium 8.9 8.4 - 10.4 mg/dL Albumin,Serum 3.9 3.5 - 5.0 g/dL Total Protein 6.4 6.3 - 8.2 g/dL Total Bilirubin 0.6 0.2 - 1.3 mg/dL Alkaline Phosphatase 58 38 - 126 U/L ALT 71 (H) 13 - 69 U/L AST 138 (H) 15 - 46 U/L Hemogram (CBC) Result Value Ref Range WBC 13.3 (H) 3.6 - 10.7 10*3/uL RBC 3.79 (L) 3.80 - 5.20 10*6/uL Hemoglobin 12.2 11.7 - 16.0 g/dL Hematocrit 36.2 35.0 - 47.0 % MCV 95.7 79.0 - 98.0 fL MCH 32.1 26.0 - 34.0 pg MCHC 33.6 32.0 - 36.0 % RDW 15.0 (H) 11.5 - 14.5 % Platelets 297 140 - 440 10*3/uL MPV 7.0 (L) 7.4 - 10.4 fL Lactic Acid, Plasma Result Value Ref Range Lactic Acid 2.3 (HH) 0.7 - 2.0 mmol/L Magnesium Result Value Ref Range Magnesium 1.9 1.6 - 2.3 mg/dL Protime-INR Result Value Ref Range Protime 9.8 9.0 - 12.0 s INR 0.97 0.90 - 1.10 NA Troponin x1 Result Value Ref Range Troponin I 0.350 (H) 0.000 - 0.034 ng/mL Urinalysis Result Value Ref Range Appearance Sl. Cloudy Clear NA Color, UA Dark Yellow Lt. Yellow NA Specific [place], Urine 1.020 1.005 - 1.030 NA pH, Urine 5.0 5.0 - 8.0 NA LEUKOCYTES, UA Trace Negative NA Nitrite, Urine NEG Negative NA Total Protein, Urine Trace (15) Negative mg/dL Glucose, Ur NEG (Normal) Negative mg/dL Ketones, Urine Negative Negative mg/dL Urobilinogen, Urine Normal (0.2) 0 - 1 mg/dL Bilirubin, Urine 1+ Negative NA Occult Blood,Urine Trace Negative [RBC]/uL Ethanol Result Value Ref Range Ethanol Lvl <0.010 0.000 - 0.010 g/dL Urine Drug Screen Result Value Ref Range Amphetamines, urine Negative NA Barbiturates, Ur Negative NA Benzodiazepine Ur Qual Negative NA Cocaine Metabolites, Ur Negative NA Methadone, Urine Negative NA Opiates, Urine Positive NA Oxycodone Screen, Ur Positive NA PCP, Urine Negative NA Acetaminophen Level Result Value Ref Range Acetaminophen Level <10.0 10.0 - 30.0 ug/mL Salicylate Result Value Ref Range Salicylate Lvl <1.0 0.0 - 20.0 mg/dL Urinalysis with Microscopic Result Value Ref Range Urine Volume 12 ml NA WBC, UA 0-2 0 - 5 /[HPF] RBC, UA 3-5 0 - 2 /[HPF] Epithelial Cells 3-5 3 - 5 /[HPF] Bacteria, UA Negative Negative NA Radiographs: Ct Head Wo Contrast Result Date: 06/17/2018 Patient Name: REGINA PEREIRA ---CT--- Exam Date/Time 06/17/2018 22:18:[address] Head or Brain w/o Contrast Ordering Physician LELE JOHN Accession Number [id number] CPT4 Codes 57480 () Reason For Exam altered mental status Report HEAD CT WITHOUT IV CONTRAST History: Change in mental status Comparison: 09/19/2013 Technique: Axial and multiplanar sagittal and coronal reconstruction CT images obtained from the base to the vertex of the brain without IV contrast enhancement Findings: There is mild parenchymal volume loss with prominent cortical sulci and fissures. The ventricles are normal in size for age. There is mild periventricular hypodensities suggesting chronic ischemic white matter changes. There is no intracranial hemorrhage, mass effect, or midline shift in the brain. The exam islimited without IV contrast enhancement. . There are atherosclerotic carotid siphons calcifications. The visualized parts of the paranasal sinuses and mastoid air cells are clear. IMPRESSION: Mild parenchymal volume loss . Mild chronic ischemic white matter changes. [ No evidence of acute intracranial process ] Report Dictated on --- Final --- Dictated: 06/17/2018 10:17 pm Dictating Physician: MD DENT AHMAD Signed Date and Time: 06/17/2018 10:23 pm Signed by: MD DENT AHMAD Transcribed Date and Time: 06/17/2018 10:17 Xr Chest Portable Result Date: 06/17/2018 Patient Name: REGINA PEREIRA ---Diagnostic Radiology--- Exam Date/Time 06/17/2018 22:17:52 EST Exam CR Chest Portable Ordering Physician [id number] CARRIONLELE Accession Number [id number] CPT4 Codes 80632 () Reason For Exam weakness Report SINGLE FRONTAL VIEW OF THE CHEST CLINICAL INDICATION: weakness TECHNIQUE: Single frontal view of the chest COMPARISON: 12/18/2016 FINDINGS: Mild cardiac enlargement. No focal infiltrate given soft tissue overlying lung bases. No vascular congestion. No effusion. IMPRESSION: 1. No acute finding. Report Dictated on --- Final --- Dictated: 06/17/2018 10:31 pm Dictating Physician: MD LÓPEZ JOHN R Signed Date and Time: 06/17/2018 10:32 pm Signed by: MD LÓPEZ JOHN R Transcribed Date and Time: 06/17/2018 10:31 MDM: The patient is hypotensive, however the rest of her vital signs are within normal limits and she is saturating well on room air. IV access was established and she was given 2L NS fluid boluses for hydration. Based on the above history and physical exam, I maintain a broad differential diagnosis for causes of altered mental status including acute stroke, intracranial hemorrhage, acute cardiac injury, arrythmia, infection, electrolyte abnormalities, metabolic abnormalities, anemia and drug overdose/intoxication. EK lead EKG per my interpretation: Normal Sinus Rhythm at 93 [place] is Normal QTc is normal There are no specific T wave changes appreciated. There are no specific ST wave changes appreciated concerning for acute cardiac injury. Prior EKG was compared and did not demonstrate any acute ischemic changes Lab results show significantly elevated Cr when compared to baseline and hyponatremia. Troponin is indeterminate which is likely due to demand ischemia and repeat will be obtained in 3 hours. UDS is positive for oxycodone and opiates . Imaging studies are unremarkable. On re-evaluation, the patient is more alert, however she remains hypotensive. I believe that his may be due to severe dehydration, however I cannot rule out sepsis of unclear etiology, therefore broad spectrum antibiotics were ordered. At this point, I believe that the patient will benefit from transfer to [facility] for admission to the ICU. The patient was accepted for transfer by Dr. Bryant. She was transferred in guarded condition. Critical Care: The high probability of sudden, clinically significant deterioration in the patient's condition required the highest level of my preparedness to intervene urgently. The critical intervention of fluid resuscitation was initiated to prevent cardiopulmonary collapse. The services I provided to this patient were to treat and/or prevent clinically significant deterioration. Services included the following: chart data review, reviewing nursing notes and/or old charts, documentation time, insurance healthcare consultant collaboration regarding findings and treatment options, medication orders and management, direct patient care, vital sign assessments and ordering, interpreting and reviewing diagnostic studies/lab tests. Aggregate critical care time includes only time during which I was engaged in work directly related to the patient's care, as described above, whether at the bedside or elsewhere in the Emergency Department. It did not include time spent performing other reported procedures or the services of residents, students, nurses or physician assistants. Critical Care Time: 40 minutes Clinical Impression: Altered mental status Acute kidney failure Hypotension Troponinemia Comment: Please note this report has been produced using speech recognition software and may contain errors related to that system including errors in grammar, punctuation, and spelling, as well as words and phrases that may be inappropriate. If there are any questions or concerns please feel free to contact the dictating provider for clarification. Lele Carrion MD 07/05/18 1622 ED PROVIDER NOTE Observed: 06/14/2018 Status: F Source: [employer] 10:38 AM SYSTEM [facility] Patient: Regina Pereira : 1950 Date of Evaluation: 06/14/2018 ED DOMONIQUE Provider: PREM MCNAIR APRN - 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 Chief Complaint Chief Complaint Patient presents with ? Back Pain chronic. LORRIE Pereira is a 67 y.o. female who presents to the emergency department with complaints of chronic low back pain. Patient states pain has been present for years. States pain is located in her tailbone, bilateral hips and radiates on the posterior legs. She describes her pain as a constant, achy/burning pain. Pain is alleviated with Percocet. She denies any relieving factors. Patient states she was previously in pain management however, after a three-hour wait for her last appointment 2 weeks ago she is looking for a new pain management doctor. She was previously prescribed two, 5 mg Percocet per day however she is out of her Percocet. She denies any change in her pain. Note is made on the triage note of a recent fall, however patient denied any recent slips, trips or falls. She has previously tried NSAIDs, Lidoderm patches, Neurontin and physical therapy with no relief of symptoms. She states she seen multiple phone triage specialist and told she was not a candidate for surgery. She denies any fever or chills. No chest pain or shortness of breath. No abdominal pain. No urinary symptoms. No numbness, tingling or weakness in extremities. No bowel or bladder incontinence. PMH: Chronic back pain, hypertension, PE on Xarelto, depression PSH: Hysterectomy, Medications: Xarelto, Zoloft, Risperdal Social: Denies tobacco, rare alcohol use, denies illicit drug use ROS: Review of Systems At least 14 systemsreviewed and otherwise acutely negative except as in the EKUK. Past History Past Medical History: Diagnosis Date ? Chronic back pain ? DDD (degenerative disc disease), lumbar ? Depression ? Hx of blood clots ? Hypertension ? Scoliosis ? Thyroid disease Past Surgical History: Procedure Laterality Date ? SECTION ? HYSTERECTOMY Social History Social History ? Marital status: Spouse name: N/A ? Number of children: N/A ? Years of education: N/A Social History Main Topics ? Smoking status: Former Smoker ? Smokeless tobacco: Never Used ? Alcohol use No ? Drug use: No ? Sexual activity: Not on file Other Topics Concern ? Not on file Social History Narrative ? No narrative on file Medications/Allergies Previous Medications LIDOCAINE (LIDODERM) 5 % Place 1 patch onto the skin daily 12 hours on, 12 hours off. LISINOPRIL-HYDROCHLOROTHIAZIDE (PRINZIDE;ZESTORETIC) 10-12.5 MG PER TABLET Take 1 tablet by mouth LISINOPRIL-HYDROCHLOROTHIAZIDE (PRINZIDE;ZESTORETIC) 20-25 MG PER TABLET TAKE ONE TABLET BY MOUTH EVERY DAY NAPROXEN (NAPROSYN) 500 MG TABLET Take 1 tablet by mouth 2 times daily for 7 days PREDNISONE (DELTASONE) 20 MG TABLET Take 1 tablet by mouth daily for 7 days RISPERIDONE (RISPERDAL) 0.5 MG TABLET Take 1 tablet by mouth 2 times daily RIVAROXABAN (XARELTO) 15 MG TABS TABLET Take 1 tablet by mouth 2 times daily (with meals) RIVAROXABAN (XARELTO) 20 MG TABS TABLET Take 20 mg by mouth SERTRALINE (ZOLOFT) 100 MG TABLET Take 1 tablet by mouth daily TIZANIDINE (ZANAFLEX) 4 MG TABLET Take 1 tablet by mouth every 8 hours as needed (pain) No Known Allergies Physical Exam ED Triage Vitals BP Temp Temp src Pulse Resp SpO2 Height Weight -- -- -- -- -- -- -- -- Physical Exam Gen.: Vitals noted no distress. Afebrile. Heart: Regular rate rhythm no murmur. Lungs: Clear to auscultation bilaterally with good aeration and no adventitious breath sounds. Abdomen: Obese, soft, nontender, nonsurgical throughout. Normoactive bowel sounds. No pulsatile masses or abdominal bruits to auscultation. : Groin senstaion intact. Back: There is tenderness to palpation in the midline and paraspinal planes throughout the LS. No T spine tenderness. Extremities: 5/5 muscle strength and full range of motion bilateral lower extremities. Positive right straight leg raise. Negative left straight leg raise. Strong/equal peripheral pulses. Skin: No rash, ecchymosis or abrasions. Neuro: Knee and ankle reflexes intact with no hypereflexia. Normal babinski. No clonus. No focal neurologic deficits, NIH score of 0. Ambulates with slow, steady, wide-based gait. Diagnostics Labs: No results found for this visit on 06/14/18. Radiographs: No results found. Procedures: None ED Course and MDM In brief, Regina Pereira is a 67 y.o. female who presented to the emergency department with nontraumatic, reproducible pain in the lumbar paraspinal plane consistent with her chronic back pain. The pain is unchanged in years and the patient denies any symptoms. Vital signs are stable. The patient is neurovascularly intact with no red flag syptoms, therefore concern for spinal epidural abscess, spinal cord compression or spinal osteomyelitis is low. Patient is requesting dose of Percocet in the emergency department. I discussed with the patient as her pain is chronic and she is currently in pain management do not feel prescribing opiate medications in the emergency department is appropriate. We discussed multiple alternative treatment options that patient declined. 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 Close PCP follow up in 1 week was recommended. Strict return precautions were reviewed. Patient verbalized understanding of plan of care. ED Medication Orders None Final Impression 1. Chronic low back pain, unspecified back pain laterality, with sciatica presence unspecified DISPOSITION Decision To Discharge 06/14/2018 11:08:45 AM Patient seen independently with an Emergency Medicine attending available for supervision. (Please note that portions of this note may have been completed with a voice recognition program. Efforts were made to edit the dictations but occasionally words aremis-transcribed.) PREM MCNAIR, PIT BOSS - 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 [facility] [employer] Prem Mcnair, PIT BOSS - 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 06/14/18 1116 ED PROVIDER NOTE Observed: 06/11/2018 Status: F Source: [employer] 12:50 PM SYSTEM REPOSITORY Emergency Department Encounter [facility] EMERGENCY DEPT Patient: Regina Pereira : 1950 Date of Evaluation: 06/11/2018 ED Supervising Physician: Yuli Newby MD I independently examined and evaluated Regina Pereira. In brief, Regina Pereira is a 67 y.o. female that presents to the emergency department complaining of back pain. Patient has history of chronic back pain. She denies new injuries or new symptoms. She denies loss of bowel or bladder function or new neurological symptoms. Focused exam: Patient has a normal gait. She is able to go up on her tiptoes as well as her heels. Hip flexors are normal bilaterally. All diagnostic, treatment, and disposition decisions were made by myself in conjunction with the DOMONIQUE/Resident. For all further details of the patient's emergency department visit, please see their documentation. (Please note that portions of this note may have been completed with a voice recognition program. Efforts were made to edit the dictations but occasionally words are mis-transcribed.) Yuli Newby MD [facility] [employer] Yuli Newby MD 06/11/18 1543 ED PROVIDER NOTE Observed: 06/11/2018 Status: F Source: [employer] 12:50 PM SYSTEM REPOSITORY Emergency DepartmentEncounter [facility] EMERGENCY DEPT Patient: Regina Pereira : 1950 Date of Evaluation: 06/11/2018 ED Resident Provider: Codi Gomes MD ED care was supervised by Dr. Newby who independently examined and evaluated the patient. Please see their attestation note for further details. Chief Complaint Chief Complaint Patient presents with ? Back Pain pt in for c/o low back pain. States she her back pain is an on going problem. Pain starts in low back and radiates down bilateral legs. Pt denies chestpain or shortness of breath EKUK Regina Pereira is a 67 y.o. female who presents to the emergency department with low back pain. She has been into the ER multiple times for this same complaint. She is currently established with pain management and was prescribed 2 percocet per day. Per the patient those are not enough for her and she needs at least one every 6 hours. Her next pain management appointment is on Friday and she does not have any percocet left to treat her pain. She denies any recent falls or traumas. She denies any saddle anesthesia, urinary or fecal incontinence. ROS: Review of Systems Constitutional: Negative for activity change, appetite change, chills and fatigue. Respiratory: Negative for cough, choking, chest tightness, shortness of breath and wheezing. Cardiovascular: Negative for chest pain, palpitations and leg swelling. Gastrointestinal: Negative for abdominal pain, blood in stool, constipation, diarrhea, nausea and vomiting. Musculoskeletal: Positive for back pain. Neurological: Negative for dizziness, weakness, light-headedness, numbness and headaches. Psychiatric/Behavioral: Negative for agitation and confusion. The patient is not nervous/anxious. At least 8 systems reviewed and otherwise acutely negative except as in the EKUK. Past History Past Medical History: Diagnosis Date ? Chronic back pain ? DDD (degenerative disc disease), lumbar ? Depression ? Hx of blood clots ? Hypertension ? Scoliosis ? Thyroid disease Past Surgical History: Procedure Laterality Date ? SECTION ? HYSTERECTOMY Social History Social History ? Marital status: Spouse name: N/A ? Number of children: N/A ? Years of education: N/A Social History Main Topics ? Smoking status: Former Smoker ? Smokeless tobacco: Never Used ? Alcohol use No ? Drug use: No ? Sexual activity: Not on file Other Topics Concern ? Not on file Social History Narrative ? No narrative on file Medications/Allergies Previous Medications LIDOCAINE (LIDODERM) 5 % Place 1 patch onto the skin daily 12 hours on, 12 hours off. LISINOPRIL-HYDROCHLOROTHIAZIDE (PRINZIDE;ZESTORETIC) 10-12.5 MG PER TABLET Take 1 tablet by mouth LISINOPRIL-HYDROCHLOROTHIAZIDE (PRINZIDE;ZESTORETIC) 20-25 MG PER TABLET TAKE ONE TABLET BY MOUTH EVERY DAY NAPROXEN (NAPROSYN) 500 MG TABLET Take 1 tablet by mouth 2 times daily for 7 days PREDNISONE (DELTASONE) 20 MG TABLET Take 1 tablet by mouth daily for 7 days RISPERIDONE (RISPERDAL) 0.5 MG TABLET Take 1 tablet by mouth 2 times daily RIVAROXABAN (XARELTO) 15 MG TABS TABLET Take 1 tablet by mouth 2 times daily (with meals) RIVAROXABAN (XARELTO) 20 MG TABS TABLET Take 20 mg by mouth SERTRALINE (ZOLOFT) 100 MG TABLET Take 1 tablet by mouth daily TIZANIDINE (ZANAFLEX) 4 MG TABLET Take 1 tablet by mouth every 8 hours as needed (pain) No Known Allergies PhysicalExam ED Triage Vitals [06/11/18 1259] BP Temp Temp Source Pulse Resp SpO2 Height Weight (!) 151/140 98.2 ?F (36.8 ?C) Oral 104 20 96 % 5' 9 (1.753 m) 237 lb (107.5 kg) Physical Exam Constitutional: She is oriented to person, place, and time. She appears well-developed and well-nourished. No distress. HENT: Head: Normocephalic and atraumatic. Eyes: Pupils are equal, round, and reactive to light. Conjunctivae are normal. Cardiovascular: Normal rate, regular rhythm, normal heart sounds and intact distal pulses. No murmur heard. Pulmonary/Chest: Effort normal and breath sounds normal. No respiratory distress. She has no wheezes. She has no rales. Abdominal: Soft. Bowel sounds are normal. She exhibits no distension. There is no tenderness. There is no rebound and no guarding. Musculoskeletal: She exhibits no edema or tenderness. Neurological: She is alert and oriented to person, place, and time. Skin: Skin is warm and dry. No rash noted. She is not diaphoretic. No erythema. Diagnostics Labs: No results found for this visit on 06/11/18. Radiographs: No results found. Procedures/EKG: None ED Course and MDM @FLOW(81499)@ In brief, Regina Pereira is a 67 y.o. female who presented to the emergency department with lower back pain. This is a chronic complaint for the patient. She is established with pain management and has been prescribed 2 percocet per day. The patient states that she needs at least 1 percocet every 6 hours and so has run out of percocet to treat her pain before she can get back to her pain management physician. The patient denies any new traumas to the spine or any new neurological symptoms. The patient was informed that prescribing her additional pain medications today would be inappropriate to treat this chronic problem and that it could potentially break the pain contract she signed with her pain management physician. The patient will be discharged in stable condition. ED Medication Orders None Final Impression No diagnosis found. DISPOSITION (Please notethat portions of this note may have been completed with a voice recognition program. Efforts were made to edit the dictations but occasionally words are mis-transcribed.) Codi Gomes MD Resident Provider Codi Gomes MD Resident 06/11/18 1403 URINE DRUG SCREEN Collected: 06/03/2018 Status: F Source: [facility] (VISTA) 1:14 PM [facility] REPOSITORY Order Comment: List of Drugs Taken or Suspected? UNK TYPE CODE TESTS RESULT OUT OF RANGE REFERENCE UNITS LAB L505.0075 TO BE Normal CONFIRMED Result Comment: CONFIRMATORY TESTING FOR ALL POSITIVE URINE DRUG SCREEN RESULTS WILL ONLY BE SENT OUT UPON PHYSICIAN ORDER. VISTA Urine Drug Screen methods provide only preliminary analytical test results. A more specific alternate chemical method must be used in order to obtain a confirmed analytical result. Gas chromatography/mass spectrometery (GC/MS) is the preferred confirmatory method. Clinical consideration and professional judgement should be applied to any drug of abuse test result, particularly when preliminary positive results are used. URINE TCA TESTING MUST BE ORDERED SEPARATELY. USE TEST MNEMONIC: [facility] LAB L505.5005 VISTA UDS PH 7 Normal LAB L505.5015 <1000 ng/mL AMPHETAMINES Normal NEGATIVE LAB L505.5025 < 200 ng/mL BARBITIURATES Normal NEGATIVE LAB L505.5035 < 200 ng/mL BENZODIAZIPINE Normal NEGATIVE LAB L505.5045 < 300 ng/mL COCAINE Normal NEGATIVE LAB L505.5055 < 500 ng/mL ECSTACY Normal NEGATIVE LAB L505.5065 < 300 ng/mL METHADONE Normal NEGATIVE LAB L505.5075 < 300 High ng/mL OPIATES POSITIVE LAB L505.5085 < 25 ng/mL PCP Normal NEGATIVE LAB L505.5095 < 50 ng/mL THC Normal NEGATIVE Performed By: #### L505.5000 #### [facility] [address] [place], [address] MISCELLANEOUS LAB Collected: 06/03/2018 Status: F Source: [facility] PROCEDURE 1:14 PM [facility] REPOSITORY Order Comment: Test(s) Ordered: [id number] URINE DRUG SCREEN TYPE CODE TESTS RESULT OUT OF RANGE REFERENCE UNITS LAB L801.1541 Normal [facility] [place] [facility] LAB TEST Result Comment: [id number] 6+OXYCODONE-BUND (ng/mL) DRUG RESULT SCREEN CUTOFF ____ Amphetamines,Urine Negative ng/mL 1000 Amphetamine test includes Amphetamine and Methamphetamine. Barbiturates Negative ng/mL 200 Benzodiazepines Negative ng/mL 200 Cannabinoid Negative ng/mL 20 Cocaine (Metab) Negative ng/mL 300 Opiates Positive ng/mL 300 Opiates test includes Codeine, Morphine, Hydromorphone, Hydrocodone. Codeine Negative 300 Morphine Negative 300 Hydromorphone Positive Hydromorphone Confirm 330 ng/mL 300 Hydrocodone Positive Hydrocodone Confirm 435 ng/mL 300 Oxycodone/Oxymorphone,Urine Negative ng/mL 300 Test includes Oxydodone and Oxymorphone. TESTING PERFORMED AT [facility]. ORIGINAL REPORT ON FILE IN LAB CONTAINS ADDITIONAL TEST SITE INFORMATION. Performed By: #### L801.1541 #### [facility] [address] [place], [address] ED PROVIDER NOTE Observed: 06/02/2018 Status: F Source: [employer] 10:44 AM SYSTEM [facility] Patient: Regina Pereira : 1950 Date of Evaluation: 06/02/2018 ED DOMONIQUE Provider: Barbie Joseph PA-C Chief Complaint No chief complaint on file. EKUK Regina Pereira is a 67 y.o. female who presents to the emergency department For evaluation of low back pain. Patient has a history of chronic low back pain, scoliosis and states she also has history of degenerative disc disease, bulging disks as well as compression fractures. She is not currently following up with a primary care physician but in the process of establishing a new primary care provider. Is also in the process of being set up for pain management, states that they are working on setting up an appointment. Patient states she had a fall approximately one week ago. She does state that she is on Xarelto for history of pulmonary embolism. They said she had a fall when she was getting up out of bed approximately one week ago, during the night to go to the bathroom. States that she had a fall, describes it as tripping over the leg of the bed and landing on her bottom. She was able to get herself up on her own and has been ambulatory since. She states having had 10 aching/stabbing pain in the tailbone region. She denies any alleviating factors. States that she has tried Motrin, Tylenol, Flexeril at home and none of these work. She states the only thing that she thinks will help her is Percocet. She states it is worse with walking. Again, she has no hematuria, she denies any numbness, tingling, weakness of the lower extremities. She denies any loss of bowel or bladder control or saddle anesthesia. Denies any additional neurologic symptoms. Denies any neck pain or stiffness. Denies any chest pain or shortness of breath. Denies any abdominal pain. No recent spinal surgeries or procedures. No fevers. ROS: Review of Systems At least 10 systemsreviewed and otherwise acutely negative except as in the EKUK. Past History Past Medical History: Diagnosis Date ? Chronic back pain ? DDD (degenerative disc disease), lumbar ? Depression ? Hx of blood clots ? Hypertension ? Scoliosis ? Thyroid disease Past Surgical History: Procedure Laterality Date ? SECTION ? HYSTERECTOMY Social History Social History ? Marital status: Spouse name: N/A ? Number of children: N/A ? Years of education: N/A Social History Main Topics ? Smoking status: Former Smoker ? Smokeless tobacco: Never Used ? Alcohol use No ? Drug use: No ? Sexual activity: Not on file Other Topics Concern ? Not on file Social History Narrative ? No narrative on file Medications/Allergies Discharge Medication List as of 06/02/2018 11:09 AM CONTINUE these medications which have NOT CHANGED Details !! rivaroxaban (XARELTO) 20 MG TABS tablet Take 20 mg by mouthHistorical Med lisinopril-hydrochlorothiazide (PRINZIDE;ZESTORETIC) 20-25 MG per tablet TAKE ONE TABLET BY MOUTH EVERY DAYHistorical Med tiZANidine (ZANAFLEX) 4 MG tablet Take 1 tablet by mouth every 8 hours as needed (pain), Disp-30 tablet, R-0Print naproxen (NAPROSYN) 500 MG tablet Take 1 tablet by mouth 2 times daily for 7 days, Disp-14 tablet, R-0Print lidocaine (LIDODERM) 5 % Place 1 patch onto the skin daily 12 hours on, 12 hours off., Disp-30 patch, R-0Print lisinopril-hydrochlorothiazide (PRINZIDE;ZESTORETIC) 10-12.5 MG per tablet Take 1 tablet by mouthHistorical Med risperiDONE (RISPERDAL) 0.5 MG tablet Take 1 tablet by mouth 2 times daily, Disp-28 tablet, R-0Print sertraline (ZOLOFT) 100 MG tablet Take 1 tablet by mouth daily, Disp-14 tablet, R-0Print !! rivaroxaban (XARELTO) 15 MG TABS tablet Take 1 tablet by mouth 2 times daily (with meals), Disp-42 tablet, R-0Print !! - Potential duplicate medications found. Please discuss with provider. No Known Allergies Physical Exam ED Triage Vitals BP Temp Temp src Pulse Resp SpO2 Height Weight -- -- -- -- -- -- -- -- Physical Exam General: Well developed, well nourished. Neurologic: A&Ox4/4. Cranial nerves intact. No gross sensory/motor deficits. Distal reflexes intact. Cerebellar function: Her limits, there is no ataxia. Her gait is steady around the emergency department. He did come back by wheelchair but I was able to have her ambulate around her room. High sensitivity neurologic examination of this line is intact. HEENT: Normocephalic, atraumatic. MMM. Neck: supple, full ROM, no midline tenderness. Eyes: Conjunctiva clear. Extra-occular eye movements intact. Cardiac: Regular rate/rhythm, no murmurs/rubs/gallops. Pulmonary: Clear to auscultation bilaterally. Non-labored breathing, speaks in full sentences. Abdomen: Soft, non-tender to palpation. Normal active bowel sounds present in all areas. No rebound/rigidity/guarding. Back: Patient does have tenderness in the low lumbar/tailbone region. It does cross midline but is primarily paraspinous in nature, bilateral. No step-offs or deformities. There is no significant thoracic or cervical spine tenderness. Musculoskeletal: 5/5 upper/lower extremity strength bilateral. Skin: warm/dry. Psychiatric: Appropriate mood for chief complaint, cooperative with examination. Diagnostics Labs: No results found for this visit on 06/02/18. Radiographs: No results found. Procedures: none ED Course and MDM In brief, Regina Pereira is a 67 y.o. female who presented to the emergency department For evaluation of low back pain. Patient arrives, she is in no apparent distress. She is well known to me as well as the emergency department staff. I have seen her multiple times previously for the similar complaint. This is a chronic problem. I did evaluate patient and performed physical examination, or high sensitivity lumbar neurologic examination was intact and she has steady gait. There are no exam findings to suggest an epidural abscess, epidural hematoma, fracture or dislocation. That she states she did have a fall below, I did offer x-rays to ensure that there were no new fractures. However, she declines. I discussed with her multiple options or pain control including NSAIDs, Tylenol, muscle relaxers, Lidoderm patches. She declined all of these. Also declines x-rays. States she only wants Percocet. I explained to her that for her chronic problem it is not appropriate management in the emergency department to be giving Percocet without evaluating for a new fracture. Continues to decline x-rays. She nursing staff went in to see patient, is declining to have her vital signs taken and states she would like to leave. Patient decided to leave prior to treatment completion. I stated that I would give her referral for primary care physician however, she LEFT before I was able to print her discharge papers. I estimate there is LOW risk for ACUTE VERTEBRAL FRACTURE, ABDOMINAL AORTIC ANEURYSM, CAUDA EQUINA SYNDROME, EPIDURAL MASS LESION, SPINAL STENOSIS, OR HERNIATED DISK CAUSING SEVERE STENOSIS, thus I consider the discharge disposition reasonable. Regina Pereira and I have discussed the diagnosis and risks, and we agree with discharging home to follow-up with their primary doctor. We also discussed returning to the Emergency Department immediately if new or worsening symptoms occur. We have discussed the symptoms which are most concerning (e.g., saddle anesthesia, urinary or bowel incontinence or retention, changing or worsening pain) that necessitate immediate return. ED Medication Orders None Final Impression 1. Chronic low back pain, unspecified back pain laterality, with sciatica presence unspecified DISPOSITION Eloped - Left Before Treatment Complete 06/02/2018 11:06:41 AM Patient seen on my own, per my scope of practice with an Emergency Medicine attending available for consultation. (Please note that portions of this note may have been completed with a voice recognition program. Efforts were made to edit the dictations but occasionally words aremis-transcribed.) Barbie Joseph PA-C [employer] Barbie Joseph PA-C 06/02/18 1112 EMERGENCY DEPARTMENT Observed: 06/01/2018 Status: F Source: [facility] SUMMARY 12:08 PM [facility] REPOSITORY [facility] Medical Records Department [address] [place] [address] Emergency Department Summary 06/01/18 1206 MR#: [id number] Acct: [id number] Name: REGINA PEREIRA Rep #: [id number] : 1950 67 From: Eyal Teague MD PCP: Care Physician, No Primary Status: PRE ER - ER Visit Summary Date of Service: 06/01/18 Chief Complaint: Chronic back pain History of Present Illness: The patient is a 67 F with a history of multiple presenting to the emergency department requesting Percocet. She states that she was discharged from pain management because she failed a pill count. She is currently waiting to get into pain management out here in [place]. She states that she has seen multiple surgeons and has been told that surgically there is nothing they can do. She denies any changes in the character or severity of her pain. It is in the same location as usual. She states that she was here 2 days ago and received Percocet. Physical Examination: Mild paraspinal lumbar tenderness bilaterally but no midline tenderness, erythema, or fluctuance. Normal strength and sensation in both lower extremities. Negative Babinski's. No clonus. Reflexes are normal and symmetric. Test Results: None performed Emergency Department Course and Treatment: She was given Percocet here. I have seen her at an outside hospital multiple times for the same complaint. She assures me that this is a chronic issue. I did not feel comfortable prescribing her chronic medications and I encouraged her to see her primary care physician or pain management for further prescriptions but her pain was addressed here. She does not want any non-opiate pain medication. She states that nothing else helps her including muscle relaxers or steroids. Treatment Plan: Follow-up with her doctor Disposition: Home stable Impression: Initial encounter chronic back pain This note was generated with [employer] dictation software. It may contain incorrect words, spelling, and punctuation that were not noted in review of the chart prior to signing ED Disposition - Plan for ED Patient: Chief Complaint: Other, Pain/Inj Instructions: ED Chronic Pain Management Referrals: Care Physician,No Primary [Primary Care Provider] - What to do if you have Problems For any increased pain, shortness of breath, bleeding, nausea or vomiting, chest pain, or any unexpected problems, contact your Primary Care Provider. Call [facility] ([phone]) or report to the closest Emergency Room. Call 911 if necessary. 06/01/18 1208 <Electronically signed by Eyal Teague MD> Date Eyal Teague MD Cosigner Signature (If Indicated): Date CC: No Primary Care Physician ED [facility] Observed: 05/31/2018 Status: C Source: [facility] 1:44 PM [facility] REPOSITORY [facility] [address] [place], [place] [address] Emergency Department Discharge Instructions REGINA PEREIRA , Please provide this information to your Primary Care/Specialist Name : REGINA PEREIRA Current Date : 05/31/2018 13:44:20 : 1950 12:00 PM Primary Care Physician : Physician, No PCP Diagnosis : Back pain Follow-Up Instructions: REGINA PEREIRA has been given these follow-up instructions: FOLLOW-UP APPOINTMENTS: Provider: Specialty: Address: Date: Your back specialist at home. 3 to 4 days Comment: Call for an Appointment Laboratory Orders: None Ordered Radiology Orders: Name: Status: CT L-Spine w/o Contrast Completed MRI L-Spine w/o Contrast Completed Diagnostic Tests: None Ordered Procedure(s) and Patient Education(s) : ([place])- Pain [facility] List- All (CUSTOM); Spinal Compression Fracture; Back Pain, Adult, [id number] EMERGENCY SERVICES MEDICATION LIST Lista de Medicaciones de los Servicios de Emergencia Name REGINA PEREIRA MRN ([facility])-[id number] PLEASE READ THE FOLLOWING REGARDING YOUR MEDICATIONS Based on the information available during your visit we have given you the medication instructions below. Continue taking medications you took prior to your visit unless you have been told to change. Pl ease share this information with your own doctor. Carry a list of your medications with you in case of an emergency. Update it when medications are stopped, doses are changed, or new medications (includ ing mmwp-bys-nbyjrvg products) are added. If you have any questions, check with your doctor. Por la informaci??n disponible anuel alba visita, las instrucciones de medicaci??n aparecen debajo. Favor de continuar tomando las medicaciones Ud. jeane?? antes de alba visita por lo menos que hay cambios. Favor de compartir esta informaci??n con alba medico. Lleva aury lista de medicaciones consigo por myke de emergenc??a. Actualiza la lista cuando Ud. donal de karlo las medicaciones, si cambian las dosis, o si hay nuevas medicaciones a??adidas (incluyendo medicaciones vendidas sin prescripci??n). Favor de preguntar a alba medico por cualquier seema. THESE ARE THE MEDICATIONS YOU SHOULD BE TAKING cyclobenzaprine (Flexeril 5 mg oral tablet) 1 Tab(s) By Mouth Twice a day as needed Muscle Spasms. Refills: 0. Diagnosis: Back pain [M54.9] hydroCHLOROthiazide-lisinopril (lisinopril-hydroCHLOROthiazide 10 mg-12.5 mg oral tablet) 1 Tab(s) By Mouth once a day. naproxen (Naprosyn 500 mg oral tablet) 1 Tab(s) By Mouth Twice a day as needed for pain. Refills: 0. rivaroxaban (Xarelto) By Mouth. MEDICATIONS GIVEN DURING MEDICAL VISIT hydromorphone 1 mg last dose given on 05/31/2018 at 09:31 Route: Intramuscular hydromorphone 1 mg last dose given on 05/31/2018 at 11:37 Route: Intramuscular lorazepam 1 mg last dose given on 05/31/2018 at 11:48 Route: By Mouth acetaminophen-oxycodone 1 Tab last dose given on 05/31/2018 at 13:42 Route: By Mouth Maximum 4 Gm Acetaminophen/Day for Adults NON-MEDICATION PRESCRIPTION SCHEDULING PHONE NUMBER: MEDICATION CHANGE DETAILS (Not your Final Home Medication List) During the course of your visit, your home medication list was updated with the most current information. The details of those changes are shown below: NEW MEDICATIONS Printed Prescriptions cyclobenzaprine (Flexeril 5 mg oral tablet) 1 Tab(s) By Mouth Twice a day as needed Muscle Spasms. Refills: 0. Comment naproxen (Naprosyn 500 mg oral tablet) 1 Tab(s) By Mouth Twice a day as needed for pain. Refills: 0. Comment UPDATED MEDICATIONS None UNCHANGED MEDICATIONS Other Medications hydroCHLOROthiazide-lisinopril (lisinopril-hydroCHLOROthiazide 10 mg-12.5 mg oral tablet) 1 Tab(s) By Mouth once a day. Comment rivaroxaban (Xarelto) By Mouth. Comment STOP TAKING THESE MEDICATIONS None DO NOT TAKE UNTIL YOU TALK TO YOUR DOCTOR None [address] [place], [place] [address] Emergency Department Discharge Instructions Name: REGINA PEREIRA Current Date: 05/31/2018 13:44:20 : 1950 12:00 PM Primary Physician: Physician, No PCP We would like to thank you for choosing [facility] for your emergency medical needs. We examined and treated you today on an emergency basis only. This was not a substitute for, or an ef fort to provide, complete medical care. In most cases, you must let your doctor (or the doctor we referred you to) check you again. Tell your doctor about any new or lasting problems. We cannot recogniz e and treat all injuries or illnesses in one emergency department visit. After you leave, you should follow the directions attached. Instructions for obtaining X-rays: When following up with your doctor or a bone doctor, you may need to take copies of your x-rays that were done in the Emergency Department. If you didn't receive these upon your discharge from the emerg ency department, please call . When the final report becomes available and it is reviewed, the emergency department will attempt to contact you if there are any changes in your instruction s. It is important that you leave accurate information with us on how to contact you. IF you cannot be contacted, YOU must contact the follow-up doctor that you were assigned to make sure that the final official x-ray report does not require a change in your treatment. Instructions for obtaining medical records: If you need a copy of your medical records for follow-up, please contact the Health Information Management Department at . Their office hours are 8 AM- 4:30 PM, Friday through Friday. Bryan terry note: Results are not immediately available. Please allow a minimum of 48 hours for documentation and results. If you were prescribed an antibiotic: Antibiotics are life-saving drugs and they need to be used properly. Your team might change your antibiotic because test results show that a different antibiotic would be better to treat your infection. Like all medications, antibiotics have side effects. Some can be serious. This includes the risk of getting an antibiotic-resistant infection later, which may be difficult to treat. Remember to take yo ur antibiotics as prescribed. If you have any questions please talk to your healthcare team. Seatbelts: There is no doubt that seatbelts save lives. Every day, people without seatbelts have more serious injuries. Have everyone buckle up, using age appropriate seatbelts or car seats, to reduce their risk of injury. Smoking: If you do smoke, we encourage you to stop. Smoking affects all aspects of your health and the health of those around you. [facility] offers many resources to help with smoking cessation. Call the [place] Tobacco Quit Line at 9-295-XOSR-NOW ( ). High blood pressure: Your screening blood pressure today was 134 mm Hg / 86 mm Hg. Hypertension (high blood pressure) is blood pressure over 120/80. People with hypertension should contact their primary care provider withi n 30 days to follow up. Check your patient portal for additional blood pressure information. Immunizations: Immunization is a way to protect against deadly infections. Discuss this with your child's distributor publications, or Public Health Department. Your family practice doctor can determine if you need pneumonia or f bhumi vaccine. The [facility] Department can be reached at . Domestic Violence: If you are a victim of domestic violence (physical, verbal, or emotional), you are not alone. Discuss this with your physician or a friend and call the [place] Domestic Violence Hotline or [facility] Domestic Violence Hotline for assistance and support. You are the most important factor in your recovery. Follow the provided instructions carefully. Take your medications as prescribed. Most importantly, see a doctor again as discussed. If you have problems that we have not discussed, call or visit your do ctor right away. If you do not have a primary care physician, we have provided one for you to follow up with. When you call for an appointment, please inform them that you were seen in the emergency dep artment and the date of your visit. If you are unable to reach your doctor and are still experiencing problems, return to the emergency department. For assistance finding a primary care physician, call the Physician Referral Line at [phone] 628-IAOI (3796). Suicide Hotline: Your mental and emotional well-being is important. If you are in a mental health crisis or are having thoughts of suicide, please call the nationwide suicide hotline, anytime day or night, at 4-196-891-QZWV (3488). Community Housing Manager: You may be contacted by your local fire department for a follow up visit from a community ammunition specialist. The community ammunition specialist can help with a home safety check; follow up care, and general home care management. Pharmacy Information: Below is a list of 24 hour pharmacies that we are aware of. We suggest that you call the specific pharmacy for their hours before traveling to a location. Hours may vary on holidays. [facility] [address], [place] [phone] [address], [place] [address] [phone] [address] [place], [place] [address] [phone] [address], [place] [phone], [place] [phone] [address] [place], [place] [phone] [place] [phone] Take all medications as directed. If you need prescription assistance, contact the following agencies: ?? Partnership for Prescription Assistance at or www.pparx.org ?? [place] at or www.[place]estrx.org ?? www.[employer]um[employer] is a site with many valuable coupons Patient Education Materials REGINA PEREIRA has been given the following patient education materials: [facility] Chronic Pain Control [facility] Call the center to check on participating insurance plans [facility] [place] [address] [place] [address] fax [phone] MD referral by phone only. Accepts Medicaid and Medicare [facility] [address], [address]th [place] [address] [facility] [address], [address] [place] [address] fax # [phone] MD Referral by phone or MD can call and Request fax form [facility] [address] [place] [address] fax: [phone] MD REFERRAL ONLY [facility] ([facility]) Dr. Rodger Perdomo Several Locations call # for appointment information [phone] Insurance Accept Medicare/Medicaid. They have assistance programs National Societies and Associations for Chronic Pain [place] [employer] [address] [address] phone [phone] www.aapainmanage.org [place] [employer] [facility] [place], [place] phone [phone] www.painmed.org National Foundation for the Treatment of Pain [address], [place] [address] phone [phone] www.paincare.org Spinal Compression Fracture (yours is chronic, no new fracture) A spinal compression fracture is a collapse of the bones that form the spine (vertebrae). With this type of fracture, the vertebrae become squashed (compressed) into a wedge shape. Most compression frac tures happen in the middle or lower part of the spine. CAUSES This condition may be caused by: ?? Thinning and loss of density in the bones (osteoporosis). This is the most common cause. ?? A fall. ?? A car or motorcycle accident. ?? Cancer. ?? Trauma, such as a heavy, direct hit to the head. RISK FACTORS You may be at greater risk for a spinal compression fracture if you: ?? Are 50 years old or older. ?? Have osteoporosis. ?? Have certain types of cancer, including: ? Multiple myeloma. ? Lymphoma. ? Prostate cancer. ? Lung cancer. ? Breast cancer. SYMPTOMS Symptoms of this condition include: ?? Severe pain. ?? Pain that gets worse over time. ?? Pain that is worse when you stand, walk, sit, or bend. ?? Sudden pain that is so bad that it is hard for you to move. ?? Bending or humping of the spine. ?? Gradual loss of height. ?? Numbness, tingling, or weakness in the back and legs. ?? Trouble walking. Your symptoms will depend on the cause of the fracture and how quickly it develops. For example, fractures that are caused by osteoporosis can cause few symptoms, no symptoms, or symptoms that develop slowly over time. DIAGNOSIS This condition may be diagnosed based on symptoms, medical history, and a physical exam. During the physical exam, your health care provider may tap along the length of your spine to check for tendernes s. Tests may be done to confirm the diagnosis. They may include: ?? A bone density test to check for osteoporosis. ?? Imaging tests, such as a spine X-ray, a CT scan, or MRI. TREATMENT Treatment for this condition depends on the cause and severity of the condition. Some fractures, such as those that are caused by osteoporosis, may heal on their own with supportive care. This may include: ?? Pain medicine. ?? Rest. ?? A back brace. ?? Physical therapy exercises. ?? Medicine that reduces bone pain. ?? Calcium and vitamin D supplements. Fractures that cause the back to become misshapen, cause nerve pain or weakness, or do not respond to other treatment may be treated with a surgical procedure, such as: ?? Vertebroplasty. In this procedure, bone cement is injected into the collapsed vertebrae to stabilize them. ?? Balloon kyphoplasty. In this procedure, the collapsed vertebrae are expanded with a balloon and then bone cement is injected into them. ?? Spinal fusion. In this procedure, the collapsed vertebrae are connected (fused) to normal vertebrae. HOME CARE INSTRUCTIONS General Instructions ?? Take medicines only as directed by your health care provider. ?? Do not drive or operate heavy machinery while taking pain medicine. ?? If directed, apply ice to the injured area: ? Put ice in a plastic bag. ? Place a towel between your skin and the bag. ? Leave the ice on for 30 minutes every two hours at first. Then apply the ice as needed. ?? Wear your neck brace or back brace as directed by your health care provider. ?? Do not drink alcohol. Alcohol can interfere with your treatment. ?? Keep all follow-up visits as directed by your health care provider. This is important. It can help to prevent permanent injury, disability, and long-lasting (chronic) pain. Activity ?? Stay in bed (on bed rest) only as directed by your health care provider. Being on bed rest for too long can make your condition worse. ?? Return to your normal activities as directed by your health care provider. Ask what activities are safe for you. ?? Do exercises to improve motion and strength in your back (physical therapy), as recommended by your health care provider. ?? Exercise regularly as directed by your health care provider. SEEK MEDICAL CARE IF: ?? You have a fever. ?? You develop a cough that makes your pain worse. ?? Your pain medicine is not helping. ?? Your pain does not get better over time. ?? You cannot return to your normal activities as planned or expected. SEEK IMMEDIATE MEDICAL CARE IF: ?? Your pain is very bad and it suddenly gets worse. ?? You are unable to move any body part (paralysis) that is below the level of your injury. ?? You have numbness, tingling, or weakness in any body part that is below the level of your injury. ?? You cannot control your bladder or bowels. This information is not intended to replace advice given to you by your health care provider. Make sure you discuss any questions you have with your health care provider. Document Released: 07/21/2006 Document Revised: 12/05/2015 Document Reviewed: 07/25/2015 [employer] Patient Education ??2016 [employer]. Musculoskeletal Back Pain, Adult Back pain is very common. The pain often gets better over time. The cause of back pain is usually not dangerous. Most people can learn to manage their back pain on their own. HOME CARE Watch your back pain for any changes. The following actions may help to lessen any pain you are feeling: ???Stay active. Start with short walks on flat ground if you can. Try to walk farther each day. ???Exercise regularly as told by your doctor. Exercise helps your back heal faster. It also helps avoid future injury by keeping your muscles strong and flexible. ???Do not sit, drive, or standard machine stitcher one place for more than 30 minutes. ???Do not stay in bed. Resting more than 1?2 days can slow down your recovery. ???Be careful when you bend or lift an object. Use good form when lifting: ???Bend at your knees. ???Keep the object close to your body. ??? Do not twist. ???Sleep on a firm mattress. Lie on your side, and bend your knees. If you lie on your back, put a pillow under your knees. ???Take medicines only as told by your doctor. ???Put ice on the injured area. ???Put ice in a plastic bag. ???Place a towel between your skin and the bag. ???Leave the ice on for 20 minutes, 2?3 times a day for the first 2?3 days. After that, you can switch between ice and heat packs. ???Avoid feeling anxious or stressed. Find good ways to deal with stress, such as exercise. ???Maintain a healthy weight. Extra weight puts stress on your back. GET HELP IF: ???You have pain that does not go away with rest or medicine. ???You have worsening pain that goes down into your legs or buttocks. ???You have pain that does not get better in one week. ???You have pain at night. ???You lose weight. ???You have a fever or chills. GET HELP RIGHT AWAY IF: ???You cannot control when you poop (bowel movement) or pee (urinate). ???Your arms or legs feel weak. ???Your arms or legs lose feeling (numbness). ???You feel sick to your stomach (nauseous) or throw up (vomit). ???You have belly (abdominal) pain. ???You feel like you may pass out (faint). This information is not intended to replace advice given to you by your health care provider. Make sure you discuss any questions you have with your health care provider. Document Released: 01/06/2009 Document Revised: 08/11/2015 Document Reviewed: 11/22/2014 [employer] Interactive Patient Education ?2016 [employer] <><><><><><><><><><><><><><><><><><><><><><><><><><> Patient Visit Summary Signature REGINA PEREIRA has been given the following list of patient education materials, prescriptions and follow-up instructions: RANDALL Santana LINDA J, have received the above patient education materials/instructions and have verbalized understanding: Date Time Patient Signature Date Time Provider Signature DEPART SUMMARY Observed: 05/31/2018 Status: C Source: [facility] 1:44 PM HEALTH SYSTEM REPOSITORY EMERGENCY DEPARTMENT DISCHARGE SUMMARY PATIENT NAME:REGINA PEREIRA MRN: [id number] AGE: 67 Years SEX: Female PHONE:[phone] DOS: 05/31/2018 8:52 AM : 1950 ATTENDING PHYSICIAN:Kimmie Santos PCP: Physician, No PCP CHIEF COMPLAINT: BACK PAIN Allergies No Known Medication Allergies Problems Active PE (pulmonary thromboembolism) HTN (hypertension) DISCHARGE DIAGNOSIS: Back pain DISCHARGE INSTRUCTIONS: ([place])- Pain Clinic List- All (CUSTOM); Spinal Compression Fracture; Back Pain, Adult, [id number] ED PHYSICIAN DOCUMENTATION: DISPOSITION: Time of Departure From ER 05/31/2018 13:43 Discharge/Transfer From ER Home 01 MEDICATION LISTS: CURRENT MEDICATION LIST cyclobenzaprine (Flexeril 5 mg oral tablet) 1 Tab(s) By Mouth Twice a day as needed Muscle Spasms. Refills: 0. Diagnosis: Back pain [M54.9] hydroCHLOROthiazide-lisinopril (lisinopril-hydroCHLOROthiazide 10 mg-12.5 mg oral tablet) 1 Tab(s) By Mouth once a day. naproxen (Naprosyn 500 mg oral tablet) 1 Tab(s) By Mouth Twice a day as needed for pain. Refills: 0. rivaroxaban (Xarelto) By Mouth. MEDICATIONS GIVEN DURING MEDICAL VISIT hydromorphone 1 mg last dose given on 05/31/2018 at 09:31 Route: Intramuscular hydromorphone 1 mg last dose given on 05/31/2018 at 11:37 Route: Intramuscular lorazepam 1 mg last dose given on 05/31/2018 at 11:48 Route: By Mouth acetaminophen-oxycodone 1 Tab last dose given on 05/31/2018 at 13:42 Route: By Mouth Maximum 4 Gm Acetaminophen/Day for Adults LAB RESULTS: RADIOLOGY: RADIOLOGY RESULT(S) (Please contact Medical Records office for further information): 05/31/2018 09:43 CT L-Spine w/o Contrast Study: CT lumbar spine without contrast and with coronal and sagittal reconstructions dated 05/31/2018 9:50 AMCOMPARISON: NONEHISTORY: Chronic back pain. Fall one week ago, worsening back pain radiating into the hips and legs. 9 out of 10 severity.TECHNIQUE: Routine CT lumbar spine without contrast was performed. Coronal and sagittal reconstructions were made.FINDINGS: 5 lumbar vertebral bodies.Levosc oliosis.There is a fracture of the L1 vertebral body, ultimately age unknown, but favored to be recent based on the appearance. There is no significant adjacent hematoma or soft tissue swelling. Anterio r L1 height loss of approximately 40-50%. There is mild lateral displacement of the superior aspect of L1 best seen on the coronal images with mild posterior, superior retropulsion of L1 by 4 mm into th e central canal. Central canal remains approximately [address], relationship of the retropulsed portion to the cord not well defined. I do not see involvement of the pedicles nor facets. No spinous pr ocess involvement is visible. There is irregular superior endplate depression, greatest anteriorly.No other lumbar compression or discrete fracture line is visible.Multilevel degenerative disc changes a nd vacuum disc are present. This is greatest at L2-L3, L3-L4 and L4-L5.Multilevel facet arthropathy without visible pars defects. Lower thoracic degenerative disc change is present at T11-T12 with vacuu m disc here as well.No severe central canal narrowing identified by CT. No severe foraminal narrowing identified by CT.There are atherosclerotic vascular calcifications.Sacroiliac arthritis, probably de generative.IMPRESSION: 1. There is a burst type fracture of L1 as detailed above with mild retropulsion of posterior superior L1 by 4 mm into the central canal, stability unknown, but possibly an unstab le fracture. This is age unknown, but possibly recent. MRI would better evaluate if indicated. 2. No other compression or fracture of the lumbar spine visible.3. Multilevel degenerative changes and othe r findings as above.A critical result [employer] note was submitted per protocol. The results were also called to the ordering provider and documented within [employer] per protocol. Elvin Millard thanks you for the opportunity to care for your patient. Workstation ID: [id number] 05/31/2018 11:40 MRI L-Spine w/o Contrast STUDY: MRI lumbar spine without contrast 05/31/2018 12:22 PMCOMPARISON: CT lumbar spine 05/31/2018HISTORY: Lumbar back pain with trauma. History of chronic back pain. Recent fall with 9 out of 10 severi ty of pain.TECHNIQUE: Routine MRI lumbar spine was done without contrast.FINDINGS:Alignment: Levoscoliotic curvature. Alignment is stable compared to the CT.Conus: The conus terminates at T12-L1 region. . Included cord has no discrete signal abnormality.Bone marrow: No acute nor suspicious bone marrow signal is identified.Soft tissues: No paraspinous muscular edema is identified.Disc space heights: Dis c space narrowing throughout the lumbar spine, greatest at L2-L3 and L3-L4 with relative sparing of L5-S1.Disc signal: Multilevel loss of T2 disc signal compatible disc degeneration/desiccation.Vertebra l body heights: There is anterior height loss with posterior retropulsion of L1, 40-50% anterior height loss of L1. Degree of retropulsion is by about 4 mm. There is no edema to suggest that this is acu te or recent. No other vertebral body height loss.T8-T9: No axial images. Shallow central protrusion without definite cord abutment or compression, central canal 8 mm.T9-T10: Small central protrusion wi th central canal remaining 8 to 9 mm. No axial images.T10-T11: Shallow central protrusion without cord abutment seen. Central canal 8 mm. No axial images.T11-T12: Minor bulge or broad-based protrusion. No central canal significant stenosis or foraminal significant narrowing. No axial images.T12-L1: Mild bulge. Posterior retropulsion of superior L1 by 4 mm. Thecal sac effacement but remaining 13 mm. No significant foraminal narrowing. Facet degeneration.L1-L2: Bulge. Superimposed right paracentral and foraminal broad-based protrusion without significant foraminal narrowing. Facet degeneration. Scoop Driver ior epidural fat. Thecal sac 12 mm.L2-L3: Diffuse bulge with right paracentral intraforaminal kay based protrusion or eccentric bulging. No major foraminal narrowing. Facet degeneration. Thecal sac 13 m m. Posterior epidural fat.L3-L4: Mild bulging. Facet degeneration. Thecal sac 14 mm. No significant foraminal narrowing on the left. There is mild to moderate right foraminal narrowing. Possible superim posed right foraminal shallow protrusion.L4-L5: Facet degeneration. Minimal bulging. No significant stenosis.L5-S1: Central protrusion. Thecal sac effacement but remaining 8 mm. Facet degeneration. No s ignificant foraminal narrowing.There is no epidural hematoma or fluid collection identified.IMPRESSION: 1. L1 burst fracture is chronic. No acute bone marrow edema or fracture identified.2. No epidural hematoma.3. Multilevel degenerative changes as detailed above with central canal and foraminal narrowing as discussed.4. Other findings as above.Immediate final results were provided per protocol.[place] thanks you for the opportunity to care for your patient. Workstation ID: [id number] FOLLOW UP: FOLLOW-UP APPOINTMENTS: Provider: Specialty: Address: Date: Your back specialist at home. 3 to 4 days Comment: Call for an Appointment MRI L-SPINE W/O Observed: 05/31/2018 Status: F Source: [facility] CONTRERASMEL CONTRAST 12:22 PM HEALTH SYSTEM REPOSITORY STUDY: MRI lumbar spine without contrast 05/31/2018 12:22 PM COMPARISON: CT lumbar spine 05/31/2018 HISTORY: Lumbar back pain with trauma. History of chronic back pain. Recent fall with 9 out of 10 severity of pain. TECHNIQUE: Routine MRI lumbar spine was done without contrast. FINDINGS: Alignment: Levoscoliotic curvature. Alignment is stable compared to the CT. Conus: The conus terminates at T12-L1 region.. Included cord has no discrete signal abnormality. Bone marrow: No acute nor suspicious bone marrow signal is identified. Soft tissues: No paraspinous muscular edema is identified. Disc space heights: Disc space narrowing throughout the lumbar spine, greatest at L2-L3 and L3-L4 with relative sparing of L5-S1. Disc signal: Multilevel loss of T2 disc signal compatible disc degeneration/desiccation. Vertebral body heights: There is anterior height loss with posterior retropulsion of L1, 40-50% anterior height loss of L1. Degree of retropulsion is by about 4 mm. There is no edema to suggest that t his is acute or recent. No other vertebral body height loss. T8-T9: No axial images. Shallow central protrusion without definite cord abutment or compression, central canal 8 mm. T9-T10: Small central protrusion with central canal remaining 8 to 9 mm. No axial images. T10-T11: Shallow central protrusion without cord abutment seen. Central canal 8 mm. No axial images. T11-T12: Minor bulge or broad-based protrusion. No central canal significant stenosis or foraminal significant narrowing. No axial images. T12-L1: Mild bulge. Posterior retropulsion of superior L1 by 4 mm. Thecal sac effacement but remaining 13 mm. No significant foraminal narrowing. Facet degeneration. L1-L2: Bulge. Superimposed right paracentral and foraminal broad-based protrusion without significant foraminal narrowing. Facet degeneration. Posterior epidural fat. Thecal sac 12 mm. L2-L3: Diffuse bulge with right paracentral intraforaminal kay based protrusion or eccentric bulging. No major foraminal narrowing. Facet degeneration. Thecal sac 13 mm. Posterior epidural fat. L3-L4: Mild bulging. Facet degeneration. Thecal sac 14 mm. No significant foraminal narrowing on the left. There is mild to moderate right foraminal narrowing. Possible superimposed right foraminal shallow protrusion. L4-L5: Facet degeneration. Minimal bulging. No significant stenosis. L5-S1: Central protrusion. Thecal sac effacement but remaining 8 mm. Facet degeneration. No significant foraminal narrowing. There is no epidural hematoma or fluid collection identified. IMPRESSION: 1. L1 burst fracture is chronic. No acute bone marrow edema or fracture identified. 2. No epidural hematoma. 3. Multilevel degenerative changes as detailed above with central canal and foraminal narrowing as discussed. 4. Other findings as above. Immediate final results were provided per protocol. Elvin Millard thanks you for the opportunity to care for your patient. Workstation ID: [id number] - [id number] FINAL REPORT Dictated By: Kj Hernandez MD 05/31/2018 12:51 Assigned Physician: Kj Hernandez MD Reviewed and Electronically Signed By: Kj Hernandez MD 05/31/2018 12:59 Transcribed by: ANGEL 05/31/2018 12:51 Technologist: TAMIKA CT L-SPINE W/O Observed: 05/31/2018 Status: F Source: [facility] 9:50 AM HEALTH SYSTEM REPOSITORY Study: CT lumbar spine without contrast and with coronal and sagittal reconstructions dated 05/31/2018 9:50 AM COMPARISON: NONE HISTORY: Chronic back pain. Fall one week ago, worsening back pain radiating into the hips and legs. 9 out of 10 severity. TECHNIQUE: Routine CT lumbar spine without contrast was performed. Coronal and sagittal reconstructions were made. FINDINGS: 5 lumbar vertebral bodies. Levoscoliosis. There is a fracture of the L1 vertebral body, ultimately age unknown, but favored to be recent based on the appearance. There is no significant adjacent hematoma or soft tissue swelling. Anterior L1 h eight loss of approximately 40-50%. There is mild lateral displacement of the superior aspect of L1 best seen on the coronal images with mild posterior, superior retropulsion of L1 by 4 mm into the mustapha tral canal. Central canal remains approximately [address], relationship of the retropulsed portion to the cord not well defined. I do not see involvement of the pedicles nor facets. No spinous proc ess involvement is visible. There is irregular superior endplate depression, greatest anteriorly. No other lumbar compression or discrete fracture line is visible. Multilevel degenerative disc changes and vacuum disc are present. This is greatest at L2-L3, L3-L4 and L4-L5. Multilevel facet arthropathy without visible pars defects. Lower thoracic degenerative disc change is present at T11-T12 with vacuum disc here as well. No severe central canal narrowing identified by CT. No severe foraminal narrowing identified by CT. There are atherosclerotic vascular calcifications. Sacroiliac arthritis, probably degenerative. IMPRESSION: 1. There is a burst type fracture of L1 as detailed above with mild retropulsion of posterior superior L1 by 4 mm into the central canal, stability unknown, but possibly an unstable fracture. This is age unknown, but possibly recent. MRI would better evaluate if indicated. 2. No other compression or fracture of the lumbar spine visible. 3. Multilevel degenerative changes and other findings as above. A critical result [employer] note was submitted per protocol. The results were also called to the ordering provider and documented within [employer] per protocol. Elvin Millard thanks you for the opportunity to care for your patient. Workstation ID: [id number] - [id number] FINAL REPORT Dictated By: Kj Hernandez MD 05/31/2018 11:13 Assigned Physician: Kj Hernandez MD Reviewed and Electronically Signed By: Kj Hernandez MD 05/31/2018 11:27 Transcribed by: ANGEL 05/31/2018 11:13 Technologist: PARMINDER ABREU ED PHYSICIAN NOTES Observed: 05/31/2018 Status: F Source: [facility] 9:13 HEALTH SYSTEM REPOSITORY Patient: REGINA PEREIRA MRN: [id number] Age: 67 years Sex: Female : 1950 Associated Diagnoses: None Author: Kimmie Santos History of Present Illness The patient is a 67-year-old female history of hypertension and PE currently on xarelto. Also history of chronic back pain. She reports history of scoliosis, degenerative disc disease, and 3 compressio n fractures in her back although she does not know what level. She reports some chronic pain and weakness to her bilateral legs as well related to her chronic back pain. She is from out of town, near [facility]. States she is in town visiting her daughter for the weekend and plans to go home this evening. However her back pain has been exacerbated since she had a mechanical fall about a week ago at home. Reports she was getting out of bed to go the bathroom NML the night, tripped over the table at bedside, falling onto her tailbone. No head trauma or loss of consciousness at that time. She denies being evaluated or having any imaging since that fall week ago. Her pain is across the bilateral lumbar back and her tailbone. She denies any new pain, paresthesias, weaknesses to the extremities. No abdomina l pain or history of aneurysms. No bowel or bladder incontinence or saddle anesthesias. Denies history of diabetes. She used to be under pain management was on Percocet but is currently waiting to get i nto a new pain specialist. She does not have a PCP. She has followed with the back surgeon in the past, they told her she was not a canidate for surgery. She is specifically asking for 1 mg of Dilaudid, stating she has been giving 0.5 mg Dilaudid in the past and it did not help. She is requesting prescription for Percocet for home when I first enter the room, stating she has to take 2 at a time for it to help her pain. Rates pain 9/10. Social history: The patient is a former smoker. Review of Systems All other systems reviewed and are negative except as noted. Nursing triage notes were reviewed by me and I agree. Health Status Allergies: Allergic Reactions (All) No Known Medication Allergies. Medications: (Selected) Documented Medications Documented Xarelto: PO, Each, 0 Refill(s) lisinopril-hydroCHLOROthiazide 10 mg-12.5 mg oral tablet: 1 Tab, PO, Daily, Each, 0 Refill(s). Past Medical/ Family/ Social History Medical history No active or resolved past medical history items have been selected or recorded. Past Medical History Problem List Active HTN (hypertension) PE (pulmonary thromboembolism) Surgical history: Hysterectomy (754265027). delivery (5460112910).. Family history: No family history items have been selected or recorded.. Social history: Social and Psychosocial Habits Alcohol 05/31/2018 Risk Assessment: Denies Alcohol Use Substance Abuse 05/31/2018 Risk Assessment: Denies Substance Abuse . Physical Examination Vital Signs Vital Signs/Measurements 05/31/2018 08:55 EDT Temperature 98.7 Degrees F NML Pulse Rate 117 BPM HI Respiratory Rate 18 Br PM NML Pulse Oximetry 93 % NML Oxygen Delivery Room air Systolic BP 134 mm Hg NML Diastolic BP 86 mm Hg NML MAP-CF 102 mm Hg BP Position Sitting NIBP Method-CC Arm, right Pulse Oximetry Location Finger, right 05/31/2018 08:54 EDT Pain Score 9 Pain Intensity Scale Numeric Rating Scale-Verbal (Adults) Is Pain Level Acceptable? No Weight 107 kg Weight Type Pt reported Weight Lb 235 lbs Weight Oz 14.32 oz Height 175.26 cm Height Type Pt reported Height Ft 5 ft Height in 9 Inch BSA 2.22 m2 Body Mass Index 34.8 kg/m2 . CONSTITUTIONAL: Overweight female. No acute distress. Nontoxic. HEAD: Normocephalic, atraumatic. EYES: No conjunctival injection, no icterus. EARS: External ears appear normal. NOSE: Nose appears normal. NECK: Supple. Trachea is midline. RESPIRATORY: Normal chest excursion with respiration, no stridor. CARDIOVASCULAR: No cyanosis. GASTROINTESTINAL: Bowel sounds are normoactive. Abdomen is soft, nondistended, and nontender. No mass. NEUROLOGICAL: Awake, alert and oriented. Neurologically nonfocal. PSYCHOLOGICAL: The patient's mood and manner are appropriate. INTEGUMENTARY: Skin is warm and dry. No evidence of rash. MUSCULOSKELETAL: There is diffuse tenderness across the lumbar back without any midline deformity. No cervical or thoracic spinal tenderness or deformity. There is no rash, erythema, hematoma or breaks in skin about the back. 5/5 strength throughout the bilateral lower extremities. Distal pulses 2+ and symmetric. Capillary refills brisk and distal sensations intact and symmetric. Medical Decision Making I saw and evaluated the patient. I have reviewed the chief complaint, triage note, past medical/surgical, family, and social history. 67-year-old female with history of chronic back pain, and he reports 3 known compression fractures, presents to the ED with increase in her back pain over the last week. She reports that a week ago she did have a fall at home, and this is exacerbated her pain. She has not yet been evaluated for this. Given in fall, patient on anticoagulant, we'll obtain CT C- spine, to look for new compression fracture . She was unable to tell me the levels of her 3 known compression fractures. There are no red flags for cauda equina, cord compression syndrome, discitis or epidural abscess. I do not suspect aneurysm or dissection as a cause of this increased pain. CT lumbar spine shows a burst-type fracture of L1 with mild retropulsion of posterior superior L1 by 4 mm into the central canal. Stability unknown. Unknown, MRI recommended further evaluate. MRI L-spine shows L1 burst fracture that is chronic. No acute fracture. No epidural hematoma. I discussed with patient that this was a chronic compression fracture, no acute findings today. Patient was given any pain medication in the ED as well as prescription for home, even when I first entere d the room before he even got her history or exam. She was very specific about what medication she wanted any dosages. Patient was sitting in the room watching TV throughout her stay, and no distress. I did review her narcotics report and is very concerning with multiple prescriptions from multiple providers filled at multiple pharmacies and multiple cities over the past few months. As there is no acu te findings on her MRI, I did not feel that prescription for pain medication indicated for home. I discussed that I could not treat her chronic pain and she would not be receiving narcotic prescription today. I however we will give her small prescription for Flexeril. Also given prescription for naproxen to take instead of her ibuprofen. Return precautions are discussed. Asked to follow closely with er doctors in [place]. She asked for pain specialist here, saying her daughter lives here and she visits frequently. I did give her our pain clinic list. My collaborating physician is Dr Maher. The patient's presenting pulse oximetry was 93% on room air. This was interpreted as normal. The patient's old medical records have been reviewed. Reexamination/ Reevaluation Impression and Plan Impression: 1. Acute on chronic back pain status post mechanical fall 1 week ago 2. Chronic compression fracture L1 Basic Information Patient information:: Chief Complaint from Nursing Triage Note : Chief Complaint-Triage 05/31/2018 08:54 EDT Chief Complaint-Triage BACK PAIN . EMERGENCY DEPARTMENT Observed: 05/30/2018 Status: F Source: ROSE SUMMARY 11:47 PM [facility] [place] REPOSITORY [facility] Medical Records Department [address] [place] [address] Emergency Department Summary 05/30/182006 MR#: [id number] Acct: [id number] Name: REGINA PEREIRA Rep #: [id number] : 1950 67 From: Hank Gonzalez MD PCP: Care Physician, No Primary Status: DEP ER - ER Visit Summary Date of Service: 05/30/18 Chief Complaint: Back pain History of Present Illness: The patient is a 67 F with back pain. The patient has a history of back pain. I know her well from a different emergency department and have seen her on many occasions. She was previously in pain management and she was kicked out because of pill count issues. She usually comes to the ER for breakthrough pain. She complains of her typical back pain in her lower back. It radiates down her legs. Worse with movement and ambulation. No new symptoms. No abdominal pain or GI symptoms. No urinary symptoms. No fevers or systemic symptoms. No weakness or numbness. She also has psoriasis and is requesting a burst therapy of prednisone. She has had this issue many times in the past. Physical Examination: Afebrile and vital signs unremarkable. Patient is alert and oriented. No acute distress. Skin shows scaly and silvery plaques over her lower extremities. Abdomen soft. Back is diffusely tender. Neurovascular intact distally. Test Results: None indicated Emergency Department Course and Treatment: Patient received oral pain medication in the emergency department. I advised that we will not prescribe narcotics for chronic pain. She needs to follow-up with a new pain doctor. She was given a burst therapy for prednisone. Risks were discussed. She will follow-up with primary care for this. Return at any time for any new or worsening issues. Treatment Plan: As above Disposition: Discharged Impression: 1. Chronic back pain This note was generated with [employer] dictation software. It may contain incorrect words, spelling, and punctuation that were not noted in review of the chart prior to signing ED Disposition - Plan for ED Patient: Chief Complaint: Back What to do if you have Problems For any increased pain, shortness of breath, bleeding, nausea or vomiting, chest pain, or any unexpected problems, contact your Primary Care Provider. Call [facility] ([phone]) or report to the closest Emergency Room. Call 911 if necessary. 05/30/18 3591 <Electronically signed by Hank Gonzalez MD> Date Hank Gonzalez MD Cosigner Signature (If Indicated): Date CC: No Primary Care Physician DISCHARGE INSTRUCTION Observed: 05/30/2018 Status: F Source: [facility] 11:47 PM [facility] REPOSITORY [facility] Medical Records Department [address] [place] [address] Discharge Instruction 05/30/182010 MR#: [id number] Acct: [id number] Name: REGINA PEREIRA Rep #: [id number] : 1950 67 From: Hank Gonzalez MD PCP: Care Physician, No Primary Status: DEP ER ED Disposition - Plan for ED Patient: Chief Complaint: Back Instructions: ED Sprain Strain Lumbar Prescriptions: Prednisone 40 mg PO UD 5 Days #20 tab Referrals: Kacy Juarez MD [STAFF PHYSICIAN] - What to do if you have Problems For any increased pain, shortness of breath, bleeding, nausea or vomiting, chest pain, or any unexpected problems, contact your Primary Care Provider. Call [facility] ([phone]) or report to the closest Emergency Room. Call 911 if necessary. 05/30/18 4442 <Electronically signed by Hank Gonzalez MD> Date Hank Vergara Signature (If Indicated): Date CC: No Primary Care Physician ED PROV NOTE Observed: 05/30/2018 Status: COMPLETED Source: [facility] 12:00 PM CLINIC OTHER CAMPUS REPOSITORY O ID: [id number] Author: LANA Hoyt (Pa) Service: Emergency Medicine Author Type: Physician Floor Tech Type: ED Provider Notes Filed: 05/30/2018 12:31 PM Note Text: Attestation signed by Renato Huntley at 05/30/2018 1:11 PM I saw this patient with the physician law office assistant and agree with the assessment and plan. I did perform an independent history and exam. Patient presented with chronic lower back pain. She states that she was lost from pain management about 3 months ago. She states they have called her for a pill count and when she called back couldn't get a hold of anyone and was then told that she been released. She has attempted to get in with a new pain management group who she states can't see her for at least 4 weeks. She also had a fall week ago. She has midline reproducible lower back pain. She has normal strength and sensation of the lower extremities with brisk capillary refill. She has extensive prior ER visits. She has a care plan addressing narcotics that said not to give narcotics or steroids unless she had objective findings. I explained to the patient that it would not be appropriate for me to provide narcotics here. She then eloped. Signature: Renato Huntley MD Date: 05/30/2018 Time: 1:09 PM ED Provider Note Patient Name: Regina Pereira SERVICE DATE: 05/30/18 History Patient presents with: Back Pain Patient is 67 -year-old female presents to the ER today for acute exacerbation of chronic low back pain. Patient states she was in pain management until approximately 3 months ago when she was discharged in her practice. Patient states she is working on getting it with a new pain management physician, [facility], but these will be several weeks before she is seen by their practice. PCP who does not manage her pain medication in the interim. Patient states she had a fall from standing height 1 week ago landing on her low back more towards the left and complaining of exacerbation of pain. She denies any fevers or chills. She denies history of malignancy, denies history of IV drug use. She denies also bladder or bowel control, denies saddle anesthesia, denies radicular numbness or tingling. At baseline patient is a community ambulator without assistive device. PAST MEDICAL HISTORY Diagnosis Date - Acquired hypothyroidism - Anxiety - Compression fracture of lumbar vertebra (HCC) - DDD (degenerative disc disease), lumbar - Depression - H/O blood clots - Hypertension - PE (pulmonary thromboembolism) (HCC) - Scoliosis PAST SURGICAL HISTORY Procedure Laterality Date - BREAST LUMPECTOMY HX Right - SECTION HX 1984 - HYSTERECTOMY - LAPAROSCOPIC EXC ENDOMETRIOSIS/CYST FAMILY HISTORY Problem Relation Age of Onset - Diabetes Mother - Hypertension Mother - Alcohol/Drug Mother - Cancer Mother - other (Depression/Anxiety) Mother - Alcohol/Drug Father - Diabetes Sister - Hypertension Sister Social History Social History Main Topics - Smoking status: Former Smoker Types: Cigarettes - Smokeless tobacco: Never Used - Alcohol use Yes Comment: rarely - Drug use: No - Sexual activity: Not Currently Partners: Male ALLERGIES No Known Allergies Review of Systems Constitutional: Negative for chills and fever. HENT: Negative for congestion, rhinorrhea and sore throat. Respiratory: Negative for chest tightness and shortness of breath. Cardiovascular: Negative for chest pain and palpitations. Gastrointestinal: Negative for abdominal pain, constipation, diarrhea, nausea and vomiting. Genitourinary: Negative for difficulty urinating and hematuria. Musculoskeletal: Positive for back pain. Negative for gait problem, joint swelling and neck pain. Neurological: Negative for dizziness, weakness and numbness. Hematological: Bruises/bleeds easily (patient on xarelto for prior DVT). All other systems reviewed and are negative. Physical Exam BP 153/100 Pulse 99 Temp (Src) 96.4 (Tympanic) Resp 16 SpO2 97% Physical Exam Constitutional: She is oriented to person, place, and time. She appears well-developed and well-nourished. No distress. HENT: Head: Normocephalic and atraumatic. Eyes: Pupils are equal, round, and reactive to light. EOM are normal. Neck: Normal range of motion. Neck supple. Cardiovascular: Normal rate, regular rhythm and normal heart sounds. Abdominal: Soft. She exhibits no distension. There is no tenderness. There is no guarding. Musculoskeletal: Normal range of motion. She exhibits no edema or deformity. Lumbar back: She exhibits tenderness (diffuse through low back but patient states tailbone hurts the worst). Patient has negative log roll bilateral LE, stable pelvis without tenderness. Patient demonstrates active hip flexion, knee extension/flexion, ankle dorsiflexion/plantar flexion and great toe extension. Intact sensation throughout bilateral LE Neurological: She is alert and oriented to person, place, and time. She has normal strength. No sensory deficit. 2+ DTR of achilles and patellar reflexes bilaterally Skin: Skin is warm and dry. Capillary refill takes less than 2 seconds. No rash noted. No erythema. Nursing note and vitals reviewed. Diagnostic Testing ED Labs Ordered and Reviewed - No data to display Procedures ED Course / Clinical Impression MDM / Disposition / Plan She presents for chronic back pain. States that she had a fall 1 week ago. Per record review patient was seen at another emergency department today as well as 9 other ER visits for this back pain this month alone. She has not had recent x-rays Obtained plain films of her lumbar spine as well as sacrum and coccyx to evaluate for acute fracture. Patient states she does have a history of compression fractures but she's not sure where. She is neurovascularly intact to bilateral lower extremities on my exam. She is requesting something for pain, does have a multidisciplinary care note attached to her chart from December of this year. X-rays were ordered and Dr. Huntley went to speak with the patient, after he informed her that we will not be treating her with narcotics for her chronic pain patient eloped prior to completion of her imaging studies. SIGNATURE: LANA Hoyt (LANA Zhao 05/30/18 1231 Renato Huntley 05/30/18 1311 ED NOTE Observed: 05/30/2018 Status: COMPLETED Source: [facility] 11:52 AM CLINIC OTHER CAMPUS REPOSITORY HNO ID: [id number] Author: Sharita CamposRn) JODIE Galloway Service: Emergency Medicine Author Type: Registered Nurse Type: ED Notes Filed: 05/30/2018 11:53 AM Note Text: C/O CHRONIC BACK PAIN, REGINA HAS BEEN OUT OF HER PAIN MEDICATIONS COUPLE MONTHS NO LONGER IN [facility] MANAGEMENT, PT WAS DISMISSED FOR NON-COMPLIANCE ED PROVIDER NOTE Observed: 05/30/2018 Status: F Source: [facility] 11:06 AM SYSTEM REPOSITORY [facility] EMERGENCY DEPT eMERGENCY dEPARTMENT eNCOUnter Pt Name: Regina Pereira Birthdate 1950 Date of evaluation: 05/30/2018 Provider: MARVIN CAGE CNP CHIEF COMPLAINT No chief complaint on file. HISTORY OF PRESENT ILLNESS (Location/Symptom, Timing/Onset,Context/Setting, Quality, Duration, Modifying Factors, Severity) Note limiting factors. HPI Regina Pereira is a 67 y.o. female who presents to the emergency department With complaints of low back pain for multiple years. No bowel bladder incontinence. No new injury. Also has eczema psoriasis on her lower extremities. Requesting steroids. Also requesting Percocet for her pain. States she is supposed to be following up with a pain management doctor here soon. Otherwise denies chest pain, shortness breath, nausea vomiting, fever, chills. Pain is a constant ache no alleviating or aggravating factors. Is taking Tylenol and ibuprofen without relief. Nursing Notes were reviewed. REVIEW OF SYSTEMS (2+ forlevel 4; 10+ for level 5) Review of Systems 10 pt review of systems negative except for pertinent mentioned above in history of present illness above past medical history PAST MEDICAL HISTORY Past Medical History: Diagnosis Date ? Chronic back pain ? DDD (degenerative disc disease), lumbar ? Depression ? Hx of blood clots ? Hypertension ? Scoliosis ? Thyroid disease SURGICALHISTORY Past Surgical History: Procedure Laterality Date ? SECTION ? HYSTERECTOMY CURRENT MEDICATIONS Previous Medications LIDOCAINE (LIDODERM) 5 % Place 1 patch onto the skin daily 12 hours on, 12 hours off. LISINOPRIL-HYDROCHLOROTHIAZIDE (PRINZIDE;ZESTORETIC) 10-12.5 MG PER TABLET Take 1 tablet by mouth LISINOPRIL-HYDROCHLOROTHIAZIDE (PRINZIDE;ZESTORETIC) 20-25 MG PER TABLET TAKE ONE TABLET BY MOUTH EVERY DAY NAPROXEN (NAPROSYN) 500 MG TABLET Take 1 tablet by mouth 2 times daily for 7 days RISPERIDONE (RISPERDAL) 0.5 MG TABLET Take 1 tablet by mouth 2 times daily RIVAROXABAN (XARELTO) 15 MG TABS TABLET Take 1 tablet by mouth 2 times daily (with meals) RIVAROXABAN (XARELTO) 20 MG TABS TABLET Take 20 mg by mouth SERTRALINE (ZOLOFT) 100 MG TABLET Take 1 tablet by mouth daily TIZANIDINE (ZANAFLEX) 4 MG TABLET Take 1 tablet by mouth every 8 hours as needed (pain) ALLERGIES Patient has no known allergies. FAMILY HISTORY No family history on file. SOCIAL HISTORY Social History Social History ? Marital status: Spouse name: N/A ? Number of children: N/A ? Years of education: N/A Social History Main Topics ? Smoking status: Former Smoker ? Smokeless tobacco: Never Used ? Alcohol use No ? Drug use: No ? Sexual activity: Not on file Other Topics Concern ? Not on file Social History Narrative ? No narrative on file SCREENINGS @FLOW([id number])@ PHYSICAL EXAM (5+ for level 4, 8+ for level 5) ED Triage Vitals BP Temp Temp src Pulse Resp SpO2 Height Weight -- -- -- -- -- -- -- -- Physical Exam GENERAL: The patient appears nourished and normally developed. Vital signs as documented. EYES: Head exam is unremarkable. No scleral icterus or orbital trauma noted. HEENT: Mucous membranes moist. Nares patent without copious rhinorrhea. No enlarged lymphadenopathy. LUNGS: Lungs are clear to auscultation, without any respiratory distress. CARDIAC: Rhythm is regular. No dysrythmias or murmurs. ABDOMEN: Nontender with no obvious masses, and no peritoneal signs. Back: Lower paraspinal lumbar tenderness no step-offs or crepitus no rashes EXTREMITIES: Moves all extremities Non edematous, with no obvious deformities. SKIN: Dry flaky skin noted to lower extremities Good color, with no significant rashes. No pallor. NEURO: No loss in sensation normal strength in lower extremities No obvious neurological deficits, normal sensation and strength bilaterally. In wheelchair DIAGNOSTIC RESULTS EKG (Per Emergency Physician) RADIOLOGY (Per Emergency Physician): Interpretation per the Radiologist below, if available at the time of this note: No results found. LABS: Labs Reviewed - No data to display All other labs were within normal range or not returned as of this dictation. EMERGENCY DEPARTMENT COURSE and DIFFERENTIAL DIAGNOSIS/MDM: Vitals: There were no vitals filed for this visit. Medications - No data to display MDM. I have evaluated this patient on my own, per my scope of practice with an attending available for consultation. Offered patient multiple medications for pain relief just not narcotics. She refused everything. When I went to reevaluate the patient to determine treatment she had eloped. Told the nurse only thing she wanted was Percocet so she was going to leave. CONSULTS: None PROCEDURES: Unless otherwise noted below, none Procedures FINAL IMPRESSION 1. Other chronic back pain DISPOSITION/PLAN DISPOSITION Eloped - Left Before Treatment Complete 05/30/2018 11:19:46 AM PATIENT REFERRED TO: No follow-up provider specified. DISCHARGE MEDICATIONS: New Prescriptions No medications on file (Pleasenote: Portions of this note were completed with a voice recognition program. Efforts were made toedit the dictations but occasionally words and phrases are mis-transcribed.) Form v2016.J.[id number] MARVIN CAGE CNP (electronically signed) Emergency Medicine Provider MARVIN Cage CNP 05/30/18 1122 ED PROVIDER NOTE Observed: 05/29/2018 Status: F Source: [facility] 11:13 AM SYSTEM REPOSITORY [facility]PT eMERGENCY dEPARTMENT eNCOUnter Pt Name: Regina Pereira Birthdate 1950 Date of evaluation: 05/29/2018 Provider: Yanelis Dai APRN - CNP This patient was seen within my scope of practice with Dr. Gracia available in the department for consultation CHIEF COMPLAINT Chief Complaint Patient presents with ? Back Pain Patient c/o back pain. States it is chronic in nature, 10 years unchanged. Patient sates she is having issues with pain mgt r/t a missed pill count appt, and her PCP doesn't treat pain. Patient seen here for same two days ago, pain is unchanged from then. No distress HISTORY OF PRESENT ILLNESS (Location/Symptom, Timing/Onset,Context/Setting, Quality, Duration, Modifying Factors, Severity) Note limiting factors. HPI Regina Pereira is a 67 y.o. female who presents to the emergency department Via private vehicle requesting Percocet for her chronic back pain. She reports that she has had back pain since she was in her 30s, and it has gotten progressively worse over the last 10 years. She does not report a change in her back pain, but states that she was kicked out of 1 pain management, and is waiting to get into another pain management. She states that she has not seen her primary care physician. She reports that she is on a waiting list with pain management, but has not formally made an appointment. She denies chest pain, shortness of breath, nausea, vomiting, fever, chills, abdominal pain, change in bowel or bladder habits, weakness, loss of bowel or bladder function, urinary incontinence, saddle anesthesia, paresthesia, and urinary retention. She is also requesting prednisone for her psoriasis. She states that she has not seen her primary care physician or clerical warehouseman for this condition. She reports that shewas given triamcinolone cream, but it is not strong enough for her and she wants prednisone pills. She reports that her back pain is a 9 out of 10, constant, worse with movement. She reports Percocet to be her only alleviating factor. Her past medical history includes hypertension, depression, thyroid disease, degenerative disc disease, scoliosis, chronic back pain, and history of blood clots. Her past surgical history includes hysterectomy and section. She reports that she is a former smoker, denies alcohol use, denies illicit drug use. Reports that she has seen several surgeons over the last year, and states that they did nothing for her. She also reports that she was kicked out of her pain management 3 months ago, stating that she was called for a totalcount, and reports that she tried to call the pain management office back, but was unable to reach anyone. She reports that she was then kicked out of pain management. Nursing Notes were reviewed. REVIEW OFSYSTEMS (2+ for level 4; 10+ for level 5) Review of Systems Constitutional: Negative for chills, fatigue and fever. HENT: Negative for congestion, ear pain, rhinorrhea, sneezing and sore throat. Eyes: Negative for visual disturbance. Respiratory: Negative for cough and shortness of breath. Cardiovascular: Negative for chest pain and leg swelling. Gastrointestinal: Negative for abdominal pain, nausea and vomiting. Endocrine: Negative for cold intolerance and heat intolerance. Genitourinary: Negative for difficulty urinating, dysuria and urgency. Musculoskeletal: Positive for back pain. Negative for myalgias and neck pain. Chronic back pain Skin: Negative for pallor and rash. Allergic/Immunologic: Negative for environmental allergies. Neurological: Negative for dizziness, light-headedness and headaches. Hematological: Does not bruise/bleed easily. Psychiatric/Behavioral: Negative for confusion and sleep disturbance. PAST MEDICAL HISTORY Past Medical History: Diagnosis Date ? Chronic back pain ? DDD (degenerative disc disease), lumbar ? Depression ? Hx of blood clots ? Hypertension ? Scoliosis ? Thyroid disease SURGICAL HISTORY Past Surgical History: Procedure Laterality Date ? SECTION ? HYSTERECTOMY CURRENT MEDICATIONS Discharge Medication List as of 05/29/2018 12:01 PM CONTINUE these medications which have NOT CHANGED Details !! rivaroxaban (XARELTO) 20 MG TABS tablet Take 20 mg by mouthHistorical Med lisinopril-hydrochlorothiazide (PRINZIDE;ZESTORETIC) 20-25 MG per tablet TAKE ONE TABLET BY MOUTH EVERY DAYHistorical Med tiZANidine (ZANAFLEX) 4 MG tablet Take 1 tablet by mouth every 8 hours as needed (pain), Disp-30 tablet, R-0Print naproxen (NAPROSYN) 500 MG tablet Take 1 tablet by mouth 2 times daily for 7 days, Disp-14 tablet, R-0Print lidocaine (LIDODERM) 5 % Place 1 patch onto the skin daily 12 hours on, 12 hours off., Disp-30 patch, R-0Print lisinopril-hydrochlorothiazide (PRINZIDE;ZESTORETIC) 10-12.5 MG per tablet Take 1 tablet by mouthHistorical Med risperiDONE (RISPERDAL) 0.5 MG tablet Take 1 tablet by mouth 2 times daily, Disp-28 tablet, R-0Print sertraline (ZOLOFT) 100 MG tablet Take 1 tablet by mouth daily, Disp-14 tablet, R-0Print !! rivaroxaban (XARELTO) 15 MG TABS tablet Take 1 tablet by mouth 2 times daily (with meals), Disp-42 tablet, R-0Print !! - Potential duplicate medications found. Please discuss with provider. ALLERGIES Patient has no known allergies. FAMILY HISTORY History reviewed. No pertinent family history. SOCIAL HISTORY Social History Social History ? Marital status: Spouse name: N/A ? Number of children: N/A ? Years of education: N/A Social History Main Topics ? Smoking status: Former Smoker ? Smokeless tobacco: Never Used ? Alcohol use No ? Drug use: No ? Sexual activity: Not Asked Other Topics Concern ? None Social History Narrative ? None SCREENINGS PHYSICAL EXAM (up to 7 for level 4, 8 or more for level 5) ED Triage Vitals [05/29/18 1143] BP Temp Temp Source Pulse Resp SpO2 Height Weight 130/87 98 ?F (36.7 ?C) Oral 60 14 100 % 5' 9 (1.753 m) 237 lb (107.5 kg) Physical Exam Constitutional: She is oriented to person, place, and time. She appears well-developed and well-nourished. No distress. Obese HENT: Head: Normocephalic and atraumatic. Eyes: No scleral icterus. Cardiovascular: Normal rate, regular rhythm, normal heart sounds and intact distal pulses. Exam reveals no gallop and no friction rub. No murmur heard. Pulmonary/Chest: Effort normal and breath sounds normal. No respiratory distress. She has no wheezes. She has no rales. She exhibits no tenderness. Abdominal: Soft. There is no tenderness. Musculoskeletal: Normal range of motion. She exhibits tenderness. She exhibits no edema. She complains of diffuse tenderness on palpation, stating that this is not new. Her strength and sensation is equal bilaterally, capillary refill is less than 2 seconds, pedal pulses, dorsalis tibialis pulses, and popliteal pulses are equal bilaterally. Patient was able to stand and walk in the room, positive gluteal squeeze. Dorsiflexion and extension are normal. Neurological: She is alert and oriented to person, place, and time. She displays normal reflexes. No cranial nerve deficit or sensory deficit. She exhibits normal muscle tone. Coordination normal. Skin: Skin is warm and dry. Capillary refill takes less than 2 seconds. She is not diaphoretic. Patient does have psoriasis on her feet, this is chronic. She states that she refuses to use the triamcinolone cream Psychiatric: She has a normal mood and affect. Her behavior is normal. DIAGNOSTIC RESULTS EKG (Per Emergency Physician): RADIOLOGY (Per Emergency Physician): Interpretation per the Radiologist below, if available at the time of this note: No results found. ED BEDSIDE ULTRASOUND: Performed by ED Physician - none LABS: Labs Reviewed - No data to display All other labs were within normal range or not returned as of this dictation. EMERGENCY DEPARTMENT COURSE and DIFFERENTIAL DIAGNOSIS/MDM: Vitals: Vitals: 05/29/18 1143 BP: 130/87 Pulse: 60 Resp: 14 Temp: 98 ?F (36.7 ?C) TempSrc: Oral SpO2: 100% Weight: 107.5 kg (237 lb) Height: 5' 9 (1.753 m) Medications orphenadrine (NORFLEX) injection 60 mg (60 mg Intramuscular Not Given 05/29/18 1153) ketorolac (TORADOL) injection 60 mg (60 mg Intramuscular Not Given 05/29/18 1154) MDM. Past medical history, past surgical history, and history of present illness were obtained from the patient herself and through chart review. Upon my entrance into the room, the patient immediately requested Percocet, and stated that that was feeling thing that helped her pain. She is also asking for systemic prednisone for the psoriasis on her legs. Asked if she had a clerical warehouseman or primary care physician. She reports that she does have a primary care physician, but her primary care physician will not give her Percocet for her back pain. She reports that she has not seen dermatology in a while, and was given triamcinolone cream for psoriasis. She states that this is not strong enough for her, and she would like systemic prednisone. I did inform her that I did not believe that systemic prednisone was the answer to her psoriasis, and she needs to follow-up with dermatology and her primary care physician. 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 Nor do I feel that an x-ray is warranted at this time, as she has not had a change in her back pain. She has been seen in the emergency department 10 times in the month of May for her back pain. She was offered Norflex and Toradol in the emergency department. She stated that those did not work for, and she was not getting Percocet, she was going to leave. I informed her that I would not be giving her Percocet for her pain. She became angry, and LEFT the room. She did not appear toxic or septic. She remained stable throughout her course in the emergency room. Her vital signs are stable at 130/87, heart rate 60, temperature 90.8, respirations 14, pulse ox 100 percent on room air. Upon chart review, on her visit 2 days ago, she also LEFT when offered Toradol and no narcotics. I estimate there is LOW risk for RAPIDLY EXPANDING OR RUPTURED AAA, CAUDA EQUINA SYNDROME, EPIDURAL MASS LESION OR HERNIATED DISK CAUSING SEVERE STENOSIS, thus I consider the discharge disposition reasonable. Regina Pereira (or their surrogate) and I have discussed the diagnosis and risks, and we agree with discharging home with close follow-up. We also discussed returning to the Emergency Department immediately if new or worsening symptoms occur. We have discussed the symptoms which are most concerning that necessitate immediate return. REVAL: CRITICAL CARE TIME Total CriticalCare time was 0 minutes, excluding separately reportable procedures. There was a high probability of clinically significant/life threatening deterioration in the patient's condition which required my urgent intervention. CONSULTS: None PROCEDURES: Unless otherwise noted below, none Procedures FINAL IMPRESSION 1. Left before treatment completed 2. Chronic back pain, unspecified back location, unspecified back pain laterality DISPOSITION/PLAN DISPOSITION Eloped - Left Before Treatment Complete 05/29/2018 11:54:51 AM PATIENT REFERRED TO: No follow-up provider specified. DISCHARGE MEDICATIONS: Discharge Medication List as of 05/29/2018 12:01 PM (Please note: Portions of this note were completed with a voice recognition program.Efforts were made to edit the dictations but occasionally words and phrases are mis-transcribed.) Form v2016.J.[id number] @@ (electronically signed) Emergency Medicine Provider Yanelis Dai APRN - [facility] 05/29/18 1211 ED PROVIDER NOTE Observed: 05/27/2018 Status: F Source: [employer] 9:30 AM SYSTEM REPOSITORY [facility] eMERGENCY dEPARTMENT eNCOUnter Pt Name: Regina Pereira Birthdate 1950 Date of evaluation: 05/27/2018 Provider: LANA Kumari CHIEF COMPLAINT Chief Complaint Patient presents with ? Back Pain For over 1 year. Pt denies new injury. States she cannot get an appointment with pain management for at least 12 weeks. HISTORY OF PRESENT ILLNESS (Location/Symptom, Timing/Onset, Context/Setting, Quality,Duration, Modifying Factors, Severity) Note limiting factors. HPI I have seen this patient I have evaluated this patient on my own, per my scope of practice with an attending available for consultation Regina Pereira is a 67 y.o. female who presents to the emergency department For chief complaint of back pain which going on for well over a year which she states that this pain has been chronic and there has not been any change recently and she has seen 3 surgeons over the past year which they declined operating her due to the risks. She has been referred to pain management however she has not followed up. She has a primary care physician in which she continues to come to the emergency department asking for pain medication. She does have Flexeril and gabapentin at home which she states does not alleviate her pain. She rates the pain 9/10 bilateral sides of her back. Denies any saddle anesthesia, bladder bowel incontinence. The patient is able to walk. She denies any paresthesias within her lower extremity or weakness specifically. Patient was seen here yesterday and which she states that she has had no new complaints or changes in her pain and comparison to yesterday. Patient denies any fever, chills, nausea, vomiting, diarrhea, chest pain, shortness of breath. Vital the patient that she will not receive a prescription for narcotics here and she asked patient to receive a pill here in the emergency department. No other complaints from the patient at this time. REVIEW OF SYSTEMS (2+ for level 4; 10+ for level 5) Review of Systems Constitutional: Negative for chills, fatigue and fever. HENT: Negative for congestion, sinus pain, sore throat and voice change. Eyes: Negative. Respiratory: Negative for cough, shortness of breath and wheezing. Cardiovascular: Negative for chest pain, palpitations and leg swelling. Gastrointestinal: Negative for abdominal distention, abdominal pain, blood in stool, constipation, diarrhea, nausea and vomiting. Endocrine: Negative. Genitourinary: Negative for dysuria, frequency and hematuria. Musculoskeletal: Positive for back pain. Negative for arthralgias and neck stiffness. Skin: Negative for color change, pallor, rash and wound. Neurological: Negative for dizziness, weakness, light-headedness, numbness and headaches. Psychiatric/Behavioral: Negative. PAST MEDICAL HISTORY Past Medical History: Diagnosis Date ? Chronic back pain ? DDD (degenerative disc disease), lumbar ? Depression ? Hx of blood clots ? Hypertension ? Scoliosis ? Thyroid disease SURGICAL HISTORY Past Surgical History: Procedure Laterality Date ? SECTION ? HYSTERECTOMY CURRENT MEDICATIONS Previous Medications LIDOCAINE (LIDODERM) 5 % Place 1 patch onto the skin daily 12 hours on, 12 hours off. LISINOPRIL-HYDROCHLOROTHIAZIDE (PRINZIDE;ZESTORETIC) 10-12.5 MG PER TABLET Take 1 tablet by mouth LISINOPRIL-HYDROCHLOROTHIAZIDE (PRINZIDE;ZESTORETIC) 20-25 MG PER TABLET TAKE ONE TABLET BY MOUTH EVERY DAY NAPROXEN (NAPROSYN) 500 MG TABLET Take 1 tablet by mouth 2 times daily for 7 days RISPERIDONE (RISPERDAL) 0.5 MG TABLET Take 1 tablet by mouth 2 times daily RIVAROXABAN (XARELTO) 15 MG TABS TABLET Take 1 tablet by mouth 2 times daily (with meals) RIVAROXABAN (XARELTO) 20 MG TABS TABLET Take 20 mg by mouth SERTRALINE (ZOLOFT) 100 MG TABLET Take 1 tablet by mouth daily TIZANIDINE (ZANAFLEX) 4 MG TABLET Take 1 tablet by mouth every 8 hours as needed (pain) ALLERGIES Patient has no known allergies. FAMILY HISTORY History reviewed. No pertinent family history. SOCIAL HISTORY Social History Social History ? Marital status: Spouse name: N/A ? Number of children: N/A ? Years of education: N/A Social History Main Topics ? Smoking status: Former Smoker ? Smokeless tobacco: Never Used ? Alcohol use No ? Drug use: No ? Sexual activity: Not Asked Other Topics Concern ? None Social History Narrative ? None SCREENINGS PHYSICAL EXAM (up to 7 forlevel 4, 8 or more for level 5) ED Triage Vitals [05/27/18 0937] BP Temp Temp Source Pulse Resp SpO2 Height Weight (!) 158/96 99.8 ?F (37.7 ?C) Oral 100 16 94 % 5' 9 (1.753 m) 237 lb (107.5 kg) Physical Exam Constitutional: She is oriented to person, place, and time. She appears well-developed and well-nourished. No distress. HENT: Head: Normocephalic. Mouth/Throat: No oropharyngeal exudate. Eyes: Conjunctivae and EOM are normal. Right eye exhibits no discharge. Left eye exhibits no discharge. No scleral icterus. Neck: Neck supple. Cardiovascular: Normal rate, regular rhythm and normal heart sounds. Exam reveals no gallop and no friction rub. No murmur heard. Pulmonary/Chest: Effort normal and breath sounds normal. No stridor. No respiratory distress. She has no wheezes. She has no rales. She exhibits no tenderness. Abdominal: Soft. Bowel sounds are normal. She exhibits no distension. There is no tenderness. There is no rebound and no guarding. Musculoskeletal: Normal range of motion. She exhibits tenderness. She exhibits no edema. Patient has 5/5 strength in upper and lower extremities bilateral with normal emergency doctor strength, normal plantar flexion and dorsiflexion. There is no midline tenderness to the cervical, thoracic, lumbar spine, there are no step-offs or deformities appreciated Paraspinal pain to palpation Neurological: She is alert and oriented to person, place, and time. High Sensitivity Neuro Exam Spine L1 through S5 grossly intact without any neuro deficits. Patient has normal sensation in thigh denying saddle anesthesia. Normal bladder and bowel control without retention. Able to ambulate with normal gate and no difficulty No distal parestesia Skin: Skin is warm and dry. No rash noted. She is not diaphoretic. No erythema. No pallor. Psychiatric: She has a normal mood and affect. Her behavior is normal. Judgment and thought content normal. DIAGNOSTIC RESULTS EKG (Per Emergency Physician): Not clinically indicated Interpretation per the Radiologist below, if available at the time of thisnote: No results found. LABS: Labs Reviewed - No data to display EMERGENCY DEPARTMENT COURSE and DIFFERENTIAL DIAGNOSIS/MDM: Vitals: Vitals: 05/27/18 0937 BP: (!) 158/96 Pulse: 100 Resp: 16 Temp: 99.8 ?F (37.7 ?C) TempSrc: Oral SpO2: 94% Weight: 107.5 kg (237 lb) Height: 5' 9 (1.753 m) Medications ketorolac (TORADOL) injection 30 mg (not administered) MDM. Nursing Notes were reviewed. CC reviewed, please see HPI for patients CC for my interview Previous Medical charts and nurses note have been reviewed. Available Labs in the ED were reviewed, abnormalities include: Not clinically indicated Please seeimages performed above and radiologist interpretation. Please see medications given in the ED above. These medications were not given as the patient did not want her injection of Toradol. Based on all information given at this time, patient has been seen here multiple times in the emergency department along with other emergency departments almost daily asking for narcotics for her back pain in which she has not followed up with chronic pain management to receive additional pain medication. She is a strong clinical suspicion of drug-seeking behavior as the patient's physical examination shows that she does have an appropriate high sensitivity neuro examination in which she is able to cross her feet bring her knees off the ground and appropriate strength in her lower extremities without any paresthesias. I seen this patient 05/02/18 in which I included pictures in my chart proving the patient is able to stand on her own and also performed a high sensitivity neuro examination with her cross her feet in which she was able to perform this today also. I offered her an injection of Toradol in which she states I want this just we will be out in which she was without emergency department not wanting any further paperwork or information to follow up with her primary care physician or chronic pain management. Therefore she eloped from the emergency department. This increased with clinical suspicion of drug-seeking behavior. There is low clinical suspicion of epidural abscess or any other life-threatening process requiring surgical intervention or admission to the hospital. Differentials include: - Musculoskeletal pain, bone fracture, spinal abscess, drug- seeking behavior At this time , theinformation and evidence obtained from the HPI and physical examination does not warrant any other testing including laboratory or imaging. Please see below for medications given at discharge. Please see below forpatient follow up appointment. Patient was instructed to take medication as prescribed. Patient was also instructed to return to the emergency department if symptoms worsen, or new symptoms develop and thesesymptoms were discussed with the patient such as developing saddle anesthesia, bladder bowel incontinence to name a few. Comment: Please note this report has been produced using speech recognition software and may contain errors related to that system including errors in grammar, punctuation, andspelling, as well as words and phrases that may be inappropriate. ?If there are any questions or concernsplease feel free to contact the dictating provider for clarification. REVAL: Reevaluation the patient upon Discharge showed no new physical exam finding, symptomatic complaints, stable vital signs. CRITICAL CARE TIME Total Critical Care time was 0 minutes, excluding separatelyreportable procedures. There was a high probability ofclinically significant/life threatening deterioration in the patient's condition which required my urgent intervention. CONSULTS: None PROCEDURES: Unless otherwise noted below, none Procedures FINAL IMPRESSION 1. Chronic bilateral low back pain, with sciatica presence unspecified 2. Drug-seeking behavior DISPOSITION/PLAN DISPOSITION Eloped - Left Before Treatment Complete 05/27/2018 10:12:30 AM PATIENT REFERRED TO: No follow-up provider specified. I told her verbally to follow-up with her primary care physician and also her chronic pain management physician. DISCHARGE MEDICATIONS: New Prescriptions No medications on file (Please note: Portions of this note were completed with a voice recognition program. Efforts were made to edit thedictations but occasionally words and phrases are mis-transcribed.) Form [id number] LANA Kumari (electronically signed) Emergency Medicine Provider LANA Kumari 05/27/18 1013 ED PROVIDER NOTE Observed: 05/26/2018 Status: F Source: [employer] 9:37 AM SYSTEM REPOSITORY [facility] eMERGENCY dEPARTMENT eNCOUnter Pt Name: Regina Pereira Birthdate 1950 Date of evaluation: 05/26/2018 Provider: MARVIN CAGE CNP CHIEF COMPLAINT Chief Complaint Patient presents with ? Back Pain Pt presents to ED C /O back pain. Pt states that she has chronic back pain and is experiencing a flare up. Pt states that she is trying to get into pain mngt for this issue. HISTORY OF PRESENT ILLNESS (Location/Symptom, Timing/Onset,Context/Setting, Quality, Duration, Modifying Factors, Severity) Note limiting factors. HPI Regina Pereira is a 67 y.o. female who presents to the emergency department With complaints of chronic back pain for the past several months. States it slightly worse than usual. States she takes gabapentin at home. He requested Percocet here. No saddle anesthesia and no bowel bladder incontinence no fevers no chills. No IV drug use. States she sees surgeon for the past about this and they do not want to operate. She states she is trying to follow- up with pain management but has not been able to yet. Pain is a constant ache. No alleviating factors. Aggravating factors include walking. Denies chest pain, shortness breath, nausea vomiting fever, chills. Has gabapentin and Flexeril home that she takes. Nursing Notes were reviewed. REVIEW OF SYSTEMS (2+ forlevel 4; 10+ for level 5) Review of Systems 10 point review of systems negative except for pertinent mentioned above in history of present illness above past medical history PAST MEDICAL HISTORY Past Medical History: Diagnosis Date ? Chronic back pain ? DDD (degenerative disc disease), lumbar ? Depression ? Hx of blood clots ? Hypertension ? Scoliosis ? Thyroid disease SURGICALHISTORY Past Surgical History: Procedure Laterality Date ? SECTION ? HYSTERECTOMY CURRENT MEDICATIONS Previous Medications LIDOCAINE (LIDODERM) 5 % Place 1 patch onto the skin daily 12 hours on, 12 hours off. LISINOPRIL-HYDROCHLOROTHIAZIDE (PRINZIDE;ZESTORETIC) 10-12.5 MG PER TABLET Take 1 tablet by mouth LISINOPRIL-HYDROCHLOROTHIAZIDE (PRINZIDE;ZESTORETIC) 20-25 MG PER TABLET TAKE ONE TABLET BY MOUTH EVERY DAY NAPROXEN (NAPROSYN) 500 MG TABLET Take 1 tablet by mouth 2 times daily for 7 days RISPERIDONE (RISPERDAL) 0.5 MG TABLET Take 1 tablet by mouth 2 times daily RIVAROXABAN (XARELTO) 15 MG TABS TABLET Take 1 tablet by mouth 2 times daily (with meals) RIVAROXABAN (XARELTO) 20 MG TABS TABLET Take 20 mg by mouth SERTRALINE (ZOLOFT) 100 MG TABLET Take 1 tablet by mouth daily TIZANIDINE (ZANAFLEX) 4 MG TABLET Take 1 tablet by mouth every 8 hours as needed (pain) ALLERGIES Patient has no known allergies. FAMILY HISTORY No family history on file. SOCIAL HISTORY Social History Social History ? Marital status: Spouse name: N/A ? Number of children: N/A ? Years of education: N/A Social History Main Topics ? Smoking status: Former Smoker ? Smokeless tobacco: Never Used ? Alcohol use No ? Drug use: No ? Sexual activity: Not on file Other Topics Concern ? Not on file Social History Narrative ? No narrative on file SCREENINGS @FLOW([id number])@ PHYSICAL EXAM (5+ for level 4, 8+ for level 5) ED Triage Vitals [05/26/18 1106] BP Temp Temp Source Pulse Resp SpO2 Height Weight 122/70 97.5 ?F (36.4 ?C) Oral 88 16 99 % 5' 9 (1.753 m) 237 lb (107.5 kg) Physical Exam GENERAL: The patient appears nourished and normally developed. Vital signs as documented. EYES: Head exam is unremarkable. No scleral icterus or orbital trauma noted. ABDOMEN: Nontender with no obvious masses, and no peritoneal signs. EXTREMITIES: Non edematous, with no obvious deformities. Equal and full strength in lower extremities DTRs intact no paresthesias or saddle anesthesias sensation is normal pulses are 2+ Back: Lower lumbar tenderness no midline tenderness, no step- offs no crepitus no rashes SKIN: Good color, with no significant rashes. No pallor. NEURO: No obvious neurological deficits, normal sensation and strength bilaterally. DIAGNOSTIC RESULTS EKG (Per Emergency Physician) RADIOLOGY (Per Emergency Physician): Interpretation per the Radiologist below, if available at the time of this note: No results found. LABS: Labs Reviewed - No data to display All other labs were within normal range or not returned as of this dictation. EMERGENCY DEPARTMENT COURSE and DIFFERENTIAL DIAGNOSIS/MDM: Vitals: Vitals: 05/26/18 1106 BP: 122/70 Pulse: 88 Resp: 16 Temp: 97.5 ?F (36.4 ?C) TempSrc: Oral SpO2: 99% Weight: 107.5 kg (237 lb) Height: 5' 9 (1.753 m) Medications ketorolac (TORADOL) injection 30 mg (not administered) MDM. I have evaluated this patient on my own, per my scope of practice with an attending available for consultation. She has been seen here multiple times for this chronic low back pain. Has follow-up with multiple surgeons. Has follow-up with pain management. Per notes she has been ER hopping requesting narcotics. I gave her an injection of Toradol. Told to continue her gabapentin and Flexeril home. Ice or heat. Told her to follow-up with her primary care doctor. Management for further medications for her pain. Told her to return to the ER for saddle anesthesia bowel bladder incontinence or urinary retention. Patient is here requesting Percocet. Offered her an injection of Toradol. Will be given this and discharged home. No signs of cauda equina. I'm not concerned for epidural abscess at all this time. Patient's pain is chronic and nonchanging. CONSULTS: None PROCEDURES: Unless otherwise noted below, none Procedures FINAL IMPRESSION 1. Chronic low back pain with sciatica, sciatica laterality unspecified, unspecified back pain laterality DISPOSITION/PLAN DISPOSITION Decision To Discharge 05/26/2018 10:55:53 AM PATIENT REFERRED TO: No Horton MD [address] [facility] [address] [facility] [address] DISCHARGE MEDICATIONS: New Prescriptions No medications on file (Pleasenote: Portions of this note were completed with a voice recognition program. Efforts were made toedit the dictations but occasionally words and phrases are mis-transcribed.) Form [id number].J.[id number] MARVIN CAGE CNP (electronically signed) Emergency Medicine Provider MARVIN Cage CNP 05/26/181112 MARVIN Cage CNP 05/26/18 1113 ED PROVIDER NOTE Observed: 05/21/2018 Status: F Source: [employer] 1:19 PM SYSTEM REPOSITORY Attestation signed by Andrzej Shoemaker MD at 05/23/2018 12:47 PM I was available for consultation or for any direct care needs. I was not consulted and did not directly care for this patient. After review of this chart, it appears an appropriate level of care has been delivered at time of evaluation. [facility] eMERGENCY dEPARTMENT eNCOUnter Pt Name: Regina Pereira Birthdate 1950 Date of evaluation: 05/21/2018 Provider: Ginger Yan PA-C CHIEF COMPLAINT Chief Complaint Patient presents with ? Back Pain chronic back pain HISTORY OF PRESENT ILLNESS (Location/Symptom, Timing/Onset, Context/Setting, Quality, Duration, Modifying Factors, Severity) Note limiting factors. HPI Regina Pereira is a 67 y.o. female who [facility] with complaint of Acute on chronic back pain. Patient states that for the last couple days she has had gradually worsening pain to her lower back radiating across her entire back and down the back of her legs bilaterally. She states that this is very typical for her chronic back pain although she does not have any pain medication at home. She states that she has a appointment with pain management in June and does not have any pain medication until then. She denies any fevers or chills. No saddle anesthesia, bowel or bladder incontinence, urinary hesitancy. No dysuria, frequency, urgency or hematuria. No abdominal pain, nausea or vomiting. No leg weakness or paresthesias. She ambulates with a cane at home. Denies any falls from weakness. Pain is worsened with any movement, no alleviating factors. No chest pain or shortness of breath. Patient has a past medical history significant for chronic back pain, degenerative disc disease of the lumbar spine, scoliosis, history of blood clots, thyroid disease, depression, hypertension. Patient is a former smoker, denies IV or illicit drug abuse. Nursing Notes were reviewed and confirmed as correct. REVIEW OF SYSTEMS (2+ for level 4; 10+ for level5) Review of Systems This patient's personal and family past medical history as stated in HPI and otherwise negative. ROS as stated in HPI otherwise negative, a total of 10 systems reviewed. PAST MEDICAL HISTORY Past Medical History: Diagnosis Date ? Chronic back pain ? DDD (degenerative disc disease), lumbar ? Depression ? Hx of blood clots ? Hypertension ? Scoliosis ? Thyroid disease SURGICAL HISTORY Past Surgical History: Procedure Laterality Date ? SECTION ? HYSTERECTOMY CURRENTMEDICATIONS Discharge Medication List as of 05/21/2018 3:03 PM CONTINUE these medications which have NOT CHANGED Details tiZANidine (ZANAFLEX) 4 MG tablet Take 1 tablet by mouth every 8 hours as needed (pain), Disp-30 tablet, R-0Print naproxen (NAPROSYN) 500 MG tablet Take 1 tablet by mouth 2 times daily for 7 days, Disp-14 tablet, R-0Print lidocaine (LIDODERM) 5 % Place 1 patch onto the skin daily 12 hours on, 12 hours off., Disp-30 patch, R-0Print lisinopril-hydrochlorothiazide (PRINZIDE;ZESTORETIC) 10-12.5 MG per tablet Take 1 tablet by mouthHistorical Med risperiDONE (RISPERDAL) 0.5 MG tablet Take 1 tablet by mouth 2 times daily, Disp-28 tablet, R-0Print sertraline (ZOLOFT) 100 MG tablet Take 1 tablet by mouth daily, Disp-14 tablet, R-0Print rivaroxaban (XARELTO) 15 MG TABS tablet Take 1 tablet by mouth 2 times daily (with meals), Disp-42 tablet, R-0Print ALLERGIES Patient has no known allergies. FAMILY HISTORY No family history on file. SOCIAL HISTORY Social History Social History ? Marital status: Spouse name: N/A ? Number of children: N/A ? Years of education: N/A Social History Main Topics ? Smoking status: Former Smoker ? Smokeless tobacco: Never Used ? Alcohol use No ? Drug use: No ? Sexual activity: Not on file Other Topics Concern ? Not on file Social History Narrative ? No narrative on file SCREENINGS PHYSICAL EXAM (up to 7 for level 4, 8 or more for level 5) ED Triage Vitals [05/21/18 1332] BP Temp Temp Source Pulse Resp SpO2 Height Weight 124/60 98.1 ?F (36.7 ?C) Oral 100 20 95 % 5' 9 (1.753 m) 237 lb (107.5 kg) Physical Exam Constitutional: Patient is AAO x3, appears to be well-nourished and hydrated. Patient is resting in a chair, in no acute distress, nontoxic in appearance, appears to be in moderate discomfort. No acute distress. Vitals as stated above. Psych: Appropriate mood and affect forchief complaint. Integumentary: Skin intact, no erythema, no ecchymosis, no soft tissue swelling, skin is warm and dry. Neuro: Patient has sensation to all areas, cranial nerves IIthrough XII are grossly intact, cerebella function is normal, no gross sensory or motor deficit, distal reflexes intact. No focal weakness or neurological deficit. Vascular: Good ulnar and radial pulses bilaterally. Good dorsal pedis and posterior tibialpulses bilaterally.Capillary refill is less than 2 seconds. Cardiac: Regular rhythm and rate, S1-S2 are both audible. No murmurs rubs or gallops. No JVD. Respiratory: Lungs clear to auscultation in all [place]. Notachypnea. Patient speaks in full sentences. No accessory muscle use. Musculoskeletal: Muscle grading in bilateral upper and lower extremities is 5/5. No bony tenderness. No midline vertebral tenderness. There is tenderness on palpation to the bilateral paraspinal lumbar musculature. Neurovascularly intact. Patient ambulates without difficulty. GI:Abdomen is soft, non-tender, no palpable masses, no audible bruit, no pulsatile masses. There is no organomegaly. Patient has positive bowel sounds in all areas. No rebound tenderness, rigidity, or guarding. No pain atMcBurney's point, negative Amado's sign. : No CVA tenderness or suprapubic pain. Extremities: Skin is warm and dry. No soft tissue swelling or edema. HEENT: Head appears atraumatic and normocephalic. Trachea midline. Neck is supple. Throat, oral and nasal mucosa is moist and pink. Uvula and trachea are midline. Eyes: Conjunctivae are clear. Fullextraocular eye movements intact. PERRL. LABS: Labs Reviewed - No data to display Radiographs: No results found. EKG: All EKG's are interpreted by the Emergency Department Physician in the absence of a record center coordinator.? Please see their note for interpretation of EKG. All other labs were within normal range ornot returned as of this dictation. EMERGENCY DEPARTMENT COURSE and DIFFERENTIAL DIAGNOSIS/MDM: Vitals: Vitals: 05/21/18 1332 BP: 124/60 Pulse: 100 Resp: 20 Temp: 98.1 ?F (36.7 ?C) TempSrc: Oral SpO2: 95% Weight: 107.5 kg (237 lb) Height: 5' 9 (1.753 m) Medications oxyCODONE-acetaminophen (PERCOCET) 5-325 MG per tablet 2 tablet (2 tablets Oral Given 05/21/18 1425) loperamide (IMODIUM) capsule 2 mg (2 mg Oral Given 05/21/18 1425) MDM I have independently evaluated the patient with attending available as needed. This is a 67-year-old female presenting for evaluation of acute on chronic back pain. Patient presents with stable vitals, afebrile. On exam there is no midline vertebral tenderness, no focal weakness, patient is ambulatory and neurovascularly intact. She did not have any systemic complaints and does not have any signs or symptoms that are consistent with cauda equina syndrome or spinal infectious process at this time. She does not have any systemic complaints or urinary symptoms. She states that this pain is very typical for her chronic back pain but she does not have pain medication at home. Medical records were reviewed. Patient has multiple emergency department visits, approximately 18 visits since the month of April for this acute on chronic back pain. She states that she has a pain management appointment in June. I did review patient's OAR[place] report which show narcotic prescriptions from 10 different providers since the month of February. We will treat her pain in the emergency department with oral Percocet but she will not go home with any pain medication prescription. Patient also requested an Imodium in the emergency department because over the last couple days she has had diarrhea and states that she does not have enough money to get Imodium [id number]. On reevaluation, the pain is improved, she is hemodynamically stable, neurovascularly intact and ambulatory, ready for discharge. She is discharged with appropriate instructions, told to follow-up pain management and return to the ED for any new or worsening symptoms. Patient being discharged is in stable and improved condition and is agreeable to the plan. I estimate there is LOW risk for (including but not limited to) RAPIDLY EXPANDING OR RUPTURED AAA, AORTIC DISSECTION, CAUDA EQUINA SYNDROME, or EPIDURAL MASS LESION thus I consider the discharge disposition reasonable. Regina Pereira (or their surrogate) and I have discussed the diagnosis and risks, and we agree with discharging home with close follow-up. We also discussed returning to the Emergency Department immediately if new or worsening symptoms occur. We have discussed the symptoms which are most concerning that necessitate immediate return. This patient does notappear to be septic or toxic. No evidence of focal deficits or weakness. REVAL: Upon reevaluation, Pain improved, hemodynamically stable, neurovascularly intact, ambulatory, ready for discharge. PROCEDURES: Unless otherwise noted below, none Procedures FINAL IMPRESSION 1. Acute exacerbation of chronic low back pain DISPOSITION/PLAN DISPOSITION Decision To Discharge 05/21/2018 03:02:59 PM discharge PATIENT REFERRED TO: No Horton MD [address] [place] [address] [address] [facility] [address] DISCHARGE MEDICATIONS: Discharge Medication List as of 05/21/2018 3:03 PM (Please note: Portions of this note werecompleted with a voice recognition program. Efforts were made to edit the dictations but occasionally words and phrases are mis-transcribed.) Form v2016.J.[id number] Ginger Yan PA-C (electronically signed) Emergency Medicine Provider Ginger Yan PA-C 05/22/18 1533 ED PROVIDER NOTE Observed: 05/20/2018 Status: F Source: [employer] 10:21 AM SYSTEM REPOSITORY Emergency Department Encounter [facility] Patient: Regina Pereira : 1950 Date of Evaluation: 05/20/2018 ED Supervising Physician: Andrzej Shoemaker MD I independently examined and evaluated Regina Pereira. In brief, she is a 67 y.o. female that presented to the ED with concern chronic lower back pain. She has had nearly 20 visits for identical symptoms since April. She says she is waiting for placement on chronic pain management. She denies any change from previous symptoms. No fever, chills, night sweats, IVDA, unintentional weight loss, urinary retention, trauma since last imaging study. Requests a script for narcotics. Focused exam: Morbidly obese. Nontoxic. Lungs clear. Nonlabored breathing. Normal strength throughout hips, knees, ankles. No foot drop. Normal sensation throughout lower extremities. No skin changes overlying spine. Diffuse tenderness to percussion across back. But no particular midline tenderness. Full range of motion. No swelling in back. Normal plantar and achilles reflex. Brief ED course/MDM: ? Nursing notes were reviewed. Patient was evaluated. Orders placed as below. ? She bargains with me for one dose of pain medication as this is what our department was willing to give her yesterday. ? Following this emergency department visit, I have a low suspicion for diskitis, osteomyelitis, transverse myelitis, epidural abscess, fracture / dislocation, epidural hematoma, other spinal cord compression, ruptured aortic aneurysm, pyelonephritis, abscessed kidney, deep space abscess, or similar, emergent process. I discussed this with Regina Pereira and discussed symptoms that would warrant return to the emergency department. I underscored the importance of following up with NO HORTON MD. Regina Pereira understood and was agreeable. Medications oxyCODONE-acetaminophen (PERCOCET) 5-325 MG per tablet 1 tablet (1 tablet Oral Given 05/20/18 1222) No orders of the defined types were placed in this encounter. Impression: 1. Chronic low back pain, unspecified back pain laterality, with sciatica presence unspecified All diagnostic, treatment, and disposition decisions were made by myself in conjunction with the DOMONIQUE. For all further details of the patient's emergency department visit, please see their documentation. (Please note that portions of this note may have been completed with a voice recognition program. Efforts were made to edit the dictations but occasionally words are mis-transcribed.) Andrzej Shoemaker MD [employer] Andrzej Shoemaker MD 05/20/18 1226 ED PROVIDER NOTE Observed: 05/20/2018 Status: F Source: [employer] 10:21 AM SYSTEM REPOSITORY [facility] eMERGENCY dEPARTMENT eNCOUnter Pt Name: Regina Pereira Birthdate 1950 Date of evaluation: 05/20/2018 Provider: Eusebia Max PA-C CHIEF COMPLAINT Chief Complaint Patient presents with ? Back Pain mech fall last night. Pt has chronic pain and back issues and this made pain worse. Took ibuprofen for pain with no relief I evaluated this patient in conjunction with Dr. Shoemaker the ED attending who is in agreement with the assessment and plan. HISTORY OF PRESENT ILLNESS (Location/Symptom, Timing/Onset,Context/Setting, Quality, Duration, Modifying Factors, Severity) Note limiting factors. HPI Regina Pereira is a 67 y.o. female who presents to the emergency department with back pain. Patient states that she has chronic back pain and is currently in the process of applying for pain management. Patient states this is her typical back pain. She has been taking Ibuprofen at home with no relief. She denies bowel or bladder incontinence, saddle anesthesia, urinary symptoms, urinary retention, fevers, chills, diaphoresis. Nursing Notes were reviewed. REVIEW OF SYSTEMS (2+ forlevel 4; 10+ for level 5) Review of Systems at least 10 systems reviewed and otherwise acutely negative except as stated in [place]. PAST MEDICAL HISTORY Past Medical History: Diagnosis Date ? Chronic back pain ? DDD (degenerative disc disease), lumbar ? Depression ? Hx of blood clots ? Hypertension ? Scoliosis ? Thyroid disease SURGICALHISTORY Past Surgical History: Procedure Laterality Date ? SECTION ? HYSTERECTOMY CURRENT MEDICATIONS Discharge Medication List as of 05/20/2018 12:28 PM CONTINUE these medications which have NOT CHANGED Details tiZANidine (ZANAFLEX) 4 MG tablet Take 1 tablet by mouth every 8 hours as needed (pain), Disp-30 tablet, R-0Print naproxen (NAPROSYN) 500 MG tablet Take 1 tablet by mouth 2 times daily for 7 days, Disp-14 tablet, R-0Print lidocaine (LIDODERM) 5 % Place 1 patch onto the skin daily 12 hours on, 12 hours off., Disp-30 patch, R-0Print lisinopril-hydrochlorothiazide (PRINZIDE;ZESTORETIC) 10-12.5 MG per tablet Take 1 tablet by mouthHistorical Med risperiDONE (RISPERDAL) 0.5 MG tablet Take 1 tablet by mouth 2 times daily, Disp-28 tablet, R-0Print sertraline (ZOLOFT) 100 MG tablet Take 1 tablet by mouth daily, Disp-14 tablet, R-0Print rivaroxaban (XARELTO) 15 MG TABS tablet Take 1 tablet by mouth 2 times daily (with meals), Disp-42 tablet, R-0Print ALLERGIES Patient has no known allergies. FAMILY HISTORY History reviewed. No pertinent family history. SOCIAL HISTORY Social History Social History ? Marital status: Spouse name: N/A ? Number of children: N/A ? Years of education: N/A Social History Main Topics ? Smoking status: Former Smoker ? Smokeless tobacco: Never Used ? Alcohol use No ? Drug use: No ? Sexual activity: Not Asked Other Topics Concern ? None Social History Narrative ? None SCREENINGS @FLOW([id number])@ PHYSICAL EXAM (5+ for level 4, 8+ for level 5) ED Triage Vitals [05/20/18 1038] BP Temp Temp Source Pulse Resp SpO2 Height Weight 128/86 98.5 ?F (36.9 ?C) Oral 97 16 99 % 5' 9 (1.753 m) 237 lb (107.5 kg) Physical Exam GENERAL: Patient is obese female sitting upright in no apparent distress. Vital signs as documented. EYES: No orbital trauma or scleral icterus noted. HEENT: Full ROM of neck with no limitations. Neck is supple. No Cervical midline tenderness. Mucous membranes moist. Nares patent with copious rhinorrhea. No enlarged lymphadenopathy. LUNGS: CTA, without any respiratory distress. NO wheezes, rales or crackles appreciated. CARDIAC: regular rate and rhythm. No murmurs, rubs or gallops appreciated. ABDOMEN: Bowel sounds present in all 4 quadrants. Soft, non distended, non tender with no obvious masses and no peritoneal signs. EXTREMITIES: Full ROM of all 4 extremities without any limitations. Non edematous with no obvious deformities. Distal pulses equal and intact. BACK: no abrasions, erythema or other skin abnormalities noted on back. Diffuse tenderness to lower musculature with out midline tenderness. SKIN: Warm and dry. Good color with no significant rashes. No pallor. NEURO: A and O x3. No obvious neurological deficits, strength and sensation equal bilaterally. Patient is able to ambulate. DIAGNOSTIC RESULTS EKG (Per Emergency Physician) RADIOLOGY (Per Emergency Physician): Interpretation per the Radiologist below, if available at the time of this note: No results found. LABS: Labs Reviewed - No data to display All other labs were within normal range or not returned as of this dictation. EMERGENCY DEPARTMENT COURSE and DIFFERENTIAL DIAGNOSIS/MDM: Vitals: Vitals: 05/20/18 1038 05/20/18 1236 BP: 128/86 (!) 143/85 Pulse: 97 98 Resp: 16 16 Temp: 98.5 ?F (36.9 ?C) 98.4 ?F (36.9 ?C) TempSrc: Oral Oral SpO2: 99% 99% Weight: 107.5 kg (237 lb) Height: 5' 9 (1.753 m) Medications oxyCODONE-acetaminophen (PERCOCET) 5-325 MG per tablet 1 tablet (1 tablet Oral Given 05/20/18 1222) MDM. Regina Pereira is a 67 y.o. female who presents to the emergency department with back pain. Patient is not septic ro toxic appearing. Vitals stable throughout entire ED course. Upon chart review patient is in th ED quiet frequently. Patient is noted on multiple encounters to have drug seeking behavior. OARRS report patient is at 500 and she does not have any active scripts at this time. I had a long discussion with the patient about harm she is doing to herself with continued visits for narcotics. At first the patient lied to me and state that she has applied and spoke to a pain management group and has an appointment in 8 weeks. I explained to the patient that since she is in the process of obtaining pain management I am unable to send her home with any narcotics. Patient quickly changed her story and states that she lied and she has not applied yet. I explained to the patient that lying is not going to help her health. Patient wasevaluated by Dr. Shoemaker. Patient is encouraged to follow up with PCP and actually do her part in obtaining pain management for the ED will not continue to provide her narcotics. Patient understands and agrees with this decision. She is discharged home in stable condition. Pt denies any history of new numbness, weakness, incontinence of bowel or bladder, constipation, saddle anesthesia or paresthesias. I estimate there is LOW risk for ABDOMINAL AORTIC ANEURYSM, CAUDA EQUINA SYNDROME, EPIDURAL MASS LESION, OR CORD COMPRESSION, thus I consider the discharge disposition reasonable. CONSULTS: None PROCEDURES: Unless otherwise noted below, none Procedures FINAL IMPRESSION 1. Chronic low back pain, unspecified back pain laterality, with sciatica presence unspecified DISPOSITION/PLAN DISPOSITION Decision To Discharge 05/20/2018 12:17:58 PM PATIENT REFERRED TO: No Horton MD [address] [facility] [address] [facility] [id number] tomorrow DISCHARGE MEDICATIONS: Discharge Medication List as of 05/20/2018 12:28 PM (Pleasenote: Portions of this note were completed with a voice recognition program. Efforts were made toedit the dictations but occasionally words and phrases are mis-transcribed.) Form [id number] Eusebia Max PA-C (electronically signed) Emergency Medicine Provider Eusebia Max PA-C 05/20/18 2239 ED PROVIDER NOTE Observed: 05/19/2018 Status: F Source: [employer] 10:05 AM [facility] Patient: Regina Periera : 1950 Date of Evaluation: 05/19/2018 ED DOMONIQUE Provider: Trish Santiago PA-C I have evaluated this patient on my own, per my scope of practice, with an attending physician available for consultation. Chief Complaint Chief Complaint Patient presents with ? Back Pain Chronic, denies any recent injury, states she is out of her Percocet EKUK Regina Pereira is a 67 y.o. F who presents to the emergency department With acute on chronic low back pain. Patient states her current pain is 10/10, worse than childbirth. Patient states she always has severe back pain since she has been discontinued from her medication from her family doctor as her family doctor does not manage chronic pain. Patient is trying to pain management but has yet to make an appointment due to the clinic being dizzy. Patient states he is hoping to get into pain management in the next 4-6 weeks. Patient denies any fever or IV drug use.Patient denies any saddle paresthesias, unilateral leg weakness/paresthesias, loss of bowel or bladder function. No alleviating factors. ROS: Review of Systems Constitutional: Positive for activity change. Negative for appetite change, chills, diaphoresis, fatigue and fever. Respiratory: Negative for cough and shortness of breath. Cardiovascular: Negative for chest pain. Gastrointestinal: Negative for abdominal pain, diarrhea, nausea and vomiting. Genitourinary: Negative for difficulty urinating and dysuria. Musculoskeletal: Positive for back pain, gait problem and myalgias. Negative for arthralgias. Skin: Negative for rash and wound. Neurological: Negative for dizziness, weakness, light-headedness, numbness and headaches. Past History Past Medical History: Diagnosis Date ? Chronic back pain ? DDD (degenerative disc disease), lumbar ? Depression ? Hx of blood clots ? Hypertension ? Scoliosis ? Thyroid disease Past Surgical History: Procedure Laterality Date ? SECTION ? HYSTERECTOMY Social History Social History ? Marital status: Spouse name: N/A ? Number of children: N/A ? Years of education: N/A Social History Main Topics ? Smoking status: Former Smoker ? Smokeless tobacco: Never Used ? Alcohol use No ? Drug use: No ? Sexual activity: Not Asked Other Topics Concern ? None Social History Narrative ? None Medications/Allergies Previous Medications LIDOCAINE (LIDODERM) 5 % Place 1 patch onto the skin daily 12 hours on, 12 hours off. LISINOPRIL-HYDROCHLOROTHIAZIDE (PRINZIDE;ZESTORETIC) 10-12.5 MG PER TABLET Take 1 tablet by mouth NAPROXEN (NAPROSYN) 500 MG TABLET Take 1 tablet by mouth 2 times daily for 7 days RISPERIDONE (RISPERDAL) 0.5 MG TABLET Take 1 tablet by mouth 2 times daily RIVAROXABAN (XARELTO) 15 MG TABS TABLET Take 1 tablet by mouth 2 times daily (with meals) SERTRALINE (ZOLOFT) 100 MG TABLET Take 1 tablet by mouth daily TIZANIDINE (ZANAFLEX) 4 MG TABLET Take 1 tablet by mouth every 8 hours as needed (pain) No Known Allergies Physical Exam ED Triage Vitals [05/19/18 1042] BP Temp Temp Source Pulse Resp SpO2 Height Weight 121/69 98.4 ?F (36.9 ?C) Oral 93 18 96 % 5' 9 (1.753 m) 277 lb (125.6 kg) Physical Exam Constitutional: She is oriented to person, place, and time. She appears well-developed and well-nourished. No distress. HENT: Head: Normocephalic and atraumatic. Right Ear: External ear normal. Left Ear: External ear normal. Nose: Nose normal. Mouth/Throat: Oropharynx is clear and moist. No oropharyngeal exudate. Eyes: Pupils are equal, round, and reactive to light. Conjunctivae and EOM are normal. Neck: Normal range of motion. Neck supple. No meningeal signs. Cardiovascular: Normal rate, regular rhythm, normal heart sounds and intact distal pulses. No murmur heard. Pulmonary/Chest: Effort normal and breath sounds normal. No respiratory distress. She has no wheezes. She exhibits no tenderness. Abdominal: Soft. Bowel sounds are normal. There is no tenderness. There is no guarding. No peritoneal signs. Negative McBurney point. Negative Amado sign. Negative Rovsing sign. Musculoskeletal: Normal range of motion. She exhibits tenderness. Lumbar paravertebral tenderness to palpation. No midline spinal tenderness or step-off deformity. Normal sensory motor function bilateral lower extremity. Normal strength bilateral lower extremity. Lymphadenopathy: She has no cervical adenopathy. Neurological: She is alert and oriented to person, place, and time. Skin: Skin is warm and dry. She is not diaphoretic. Psychiatric: She has a normal mood and affect. Her behavior is normal. Thought content normal. Nursing note and vitals reviewed. Diagnostics Labs: No results found for this visit on 05/19/18. Radiographs: No results found. Procedures: none ED Course and MDM In brief, Regina Pereira is a 67 y.o. female who presented to the emergencydepartmentFor acute on chronic low back pain. Patient states she has a history of severe disc degeneration in her lumbar spine. Upon initial examination, patient had normal vital signs. Well-appearing, afebrile. Patient denies any saddle paresthesias, unilateral leg weakness/paresthesias, loss of bowel or bladder function. She was given pain medication here in the ED. However I do not feel comfortable giving her opioid analgesia for prescription as she has been seen by multiple providers in the ED and has had multiple narcotic prescriptions for acute on chronic pain. Patient was encouraged to call pain management today for an earlier appointment as we do not manage chronic back pain from the emergency department. On reexamination, patient stable, NAD. Patient presented with back pain.?Physical exam noted good reflexes bilaterally, no focal weakness, and no saddle paresthesias. There is no evidence for more malignant injury/pathology, such as, but not limited to, cauda equina syndrome, acute spinal cord pathology, UTI/pyelonephritis.?Patient's neurologic exam is intact and nonfocal.? Patient does not have any urinary complaints or abdominal complaints.? Given the patient's presentation and physical exam, I do believe that imaging is not warranted at this time.?Patient will be given medications, I do believe the patient is a good candidate for outpatient symptomatic treatment.? The patient was instructed on this treatment and the course that this type of back pain typically follows, I also discussed worrisome symptoms to monitor for at home including, but not limited to, numbness or weakness in the lower extremities, bowel or bladder dysfunction, and numbness in the groin.??? Patient will be discharged with prescriptions, instructions for symptomatic treatment, monitoring and outpatient follow-up, patient understands and agrees, return warnings given. ED Medication Orders Start Ordered Status Ordering Provider 05/19/18 1030 05/19/18 1025 oxyCODONE-acetaminophen (PERCOCET) 5-325 MG per tablet 2 tablet ONCE Last MAR action: Given - by NOEL MATTHEW on 05/19/18 at 1103 TRISH SANTIAGO Patient was given scripts For the following medications. I counseled patient on how to take these medications. New Prescriptions No medications on file Final Impression 1. Chronic low back pain without sciatica, unspecified back pain laterality DISPOSITION Decision To Discharge 05/19/2018 10:27:14 AM (Please note that portions of this note may have been completed with a voicerecognition program. Efforts were made to edit the dictations but occasionally words are mis-transcribed.) Trish Santiago PA-C [employer] Trish Santiago PA-C 05/19/18 1105 PROGRESS Observed: 05/14/2018 Status: COMPLETED Source: [facility] 5:22 PM CLINIC OTHER CAMPUS REPOSITORY HNO ID: [id number] Author: Darron De Leon (Art Therapy Specialist) Robi Service: (none) Author Type: Nurse Practitioner Type: Progress Notes Filed: 05/14/2018 5:25 PM Note Text: The patient left without being seen. Darron Fairchild APRN.CNP PATIENT LEFT WITHOUT BEING SEEN. Darron Fairchild APRN.CNP PATIENT LEFT WITHOUT BEING SEEN. Darron Fairchild APRN.JONES ED PROVIDER NOTE Observed: 05/14/2018 Status: F Source: [employer] 12:43 PM SYSTEM REPOSITORY Emergency Department Encounter [facility] EMERGENCY DEPT Patient: Regina Pereira : 1950 Date of Evaluation: 05/14/2018 ED DOMONIQUE Provider: Fede Wolf PA-C Chief Complaint Chief Complaint Patient presents with ? Back Pain pt c/o chronic back pain states no injury EKUK Regina Pereira is a 67 y.o. female who presents to the emergency department With a chief complaint of acute exacerbation of her chronic low back pain. The patient states that this is her typical low back pain. She is awaiting to be accepted at a pain management office but is not able to be seen for the next couple of weeks. The patient states that she normally comes to the emergency room for pain medication. She has been prescribed Percocet in the past. The patient states that she recently ran out of Percocet. She denies any recent new injuries, she denies any fevers, chills, dysuria, hematuria, frequency or urgency of urination. Her back pain is typical, it is worse with movement. She denies any bladder or bowel dysfunction, she denies any saddle paresthesias. The patient states that she was brought to the hospital by a friend. ROS: Review of Systems Constitutional: Negative. HENT: Negative. Eyes: Negative. Respiratory: Negative. Cardiovascular: Negative. Gastrointestinal: Negative. Endocrine: Negative. Genitourinary: Negative. Musculoskeletal: Positive for back pain and myalgias. Skin: Negative. Allergic/Immunologic: Negative. Neurological: Negative. Hematological: Negative. Psychiatric/Behavioral: Negative. All other systems reviewed and are negative. At least 10 systems reviewed and otherwise acutely negative except as in the EKUK. Past History Past Medical History: Diagnosis Date ? Chronic back pain ? DDD (degenerative disc disease), lumbar ? Depression ? Hypertension ? Scoliosis ? Thyroid disease Past Surgical History: Procedure Laterality Date ? SECTION ? HYSTERECTOMY Social History Social History ? Marital status: Spouse name: N/A ? Number of children: N/A ? Years of education: N/A Social History Main Topics ? Smoking status: Former Smoker ? Smokeless tobacco: Never Used ? Alcohol use No ? Drug use: No ? Sexual activity: Not Asked Other Topics Concern ? None Social History Narrative ? None Medications/Allergies Previous Medications LIDOCAINE (LIDODERM) 5 % Place 1 patch onto the skin daily 12 hours on, 12 hours off. LISINOPRIL-HYDROCHLOROTHIAZIDE (PRINZIDE;ZESTORETIC) 10-12.5 MG PER TABLET Take 1 tablet by mouth NAPROXEN (NAPROSYN) 500 MG TABLET Take 1 tablet by mouth 2 times daily for 7 days PREDNISONE (DELTASONE) 10 MG TABLET Take 4 tablets by mouth daily for 5 days RISPERIDONE (RISPERDAL) 0.5 MG TABLET Take 1 tablet by mouth 2 times daily RIVAROXABAN (XARELTO) 15 MG TABS TABLET Take 1 tablet by mouth 2 times daily (with meals) SERTRALINE (ZOLOFT) 100 MG TABLET Take 1 tablet by mouth daily TIZANIDINE (ZANAFLEX) 4 MG TABLET Take 1 tablet by mouth 3 times daily No Known Allergies Physical Exam ED Triage Vitals [05/14/18 1323] BP Temp Temp Source Pulse Resp SpO2 Height Weight 128/87 98 ?F (36.7 ?C) Oral 115 18 97 % -- -- Physical Exam Constitutional: She is oriented to person, place, and time. She appears well-developed and well-nourished. She is active and cooperative. Non-toxic appearance. She does not have a sickly appearance. She does not appear ill. No distress. HENT: Head: Normocephalic and atraumatic. Right Ear: External ear normal. Left Ear: External ear normal. Nose: Nose normal. Mouth/Throat: Oropharynx is clear and moist. Eyes: Pupils are equal, round, and reactive to light. Conjunctivae are normal. Neck: Normal range of motion. Neck supple. Cardiovascular: Normal rate, regular rhythm, normal heart sounds and intact distal pulses. Pulmonary/Chest: Effort normal and breath sounds normal. Abdominal: Soft. Bowel sounds are normal. She exhibits no mass. There is no tenderness. There is no rebound and no guarding. Musculoskeletal: She exhibits tenderness. Lumbar back: She exhibits decreased range of motion, pain and spasm. Back: Neurological: She is alert and oriented to person, place, and time. She has normal strength. No cranial nerve deficit or sensory deficit. She exhibits normal muscle tone. She displays a negative Romberg sign. Coordination normal. GCS eye subscore is 4. GCS verbal subscore is 5. GCS motor subscore is 6. Reflex Scores: Patellar reflexes are 2+ on the right side and 2+ on the left side. Achilles reflexes are 2+ on the right side and 2+ on the left side. Skin: Skin is warm, dry and intact. No rash noted. She is not diaphoretic. Psychiatric: She has a normal mood and affect. Her speech is normal and behavior is normal. Judgment and thought content normal. Cognition and memory are normal. Nursing note and vitals reviewed. Diagnostics Labs: No results found for this visit on 05/14/18. Radiographs: No results found. Procedures: ED Course and MDM In brief, Regina Pereira is a 67 y.o. female who presented to the emergency departmentWith a chief complaint of acute exacerbation of her chronic low back pain. The patient states that this is her typical low back pain. She is awaiting to be accepted at a pain management office but is not able to be seen for the next couple of weeks. The patient states that she normally comes to the emergency room for pain medication. She has been prescribed Percocet in the past. The patient states that she recently ran out of Percocet. She denies any recent new injuries, she denies any fevers, chills, dysuria, hematuria, frequency or urgency of urination. Her back pain is typical, it is worse with movement. She denies any bladder or bowel dysfunction, she denies any saddle paresthesias. The patient states that she was brought to the hospital by a friend. I did review the patient's prescription monitoring report which does show multiple narcotic prescriptions from various providers. I did sit down with the patient and explained that this although she does have documented chronic back pain due to compression fractures I do not feel comfortable prescribing any further narcotic pain medication due to the concern for risk of addiction. During the interview the patient was not deceitful and I do not feel that she is trying to obtain narcotics under fraudulent basis. I do believe the patient has chronic low back pain however feel that she would be better served with pain management. The patient did state that her doctor did agree to prescribe narcotics on a one-time basis only. I did encourage the patient to continue with the anti-inflammatories as well as the topical Lidoderm patches, she is requesting a prescription for a muscle relaxer which I will prescribe. I do not see any evidence to suggest cauda equina syndrome, the patient is afebrile with no history of IV drug use I do not suspect epidural abscess. The patient does not have any abdominal pain I do not feel that this is a AAA. The patient statesthat this is her typical low back pain. She will be given 2 Percocet here in the emergency department. I did encourage the patient to get plenty of rest, she is advised to return should she have any concerns or worsening of symptoms. All questions were answered prior to discharge ED Medication Orders Start Ordered Status Ordering Provider 05/14/18 1400 05/14/18 1357 oxyCODONE-acetaminophen (PERCOCET) 5-325 MG per tablet 2 tablet ONCE Acknowledged FEDE WOLF Final Impression 1. Acute exacerbation of chronic low back pain DISPOSITION Patient seen independently with an Emergency Medicine attending available for supervision. (Please note that portions of this note may have been completed with a voice recognition program. Efforts were made to edit the dictations but occasionally words are mis-transcribed.) Fede Wolf PA-C [employer] Fede Wolf PA-C 05/14/18 1408 PROGRESS Observed: 05/13/2018 Status: COMPLETED Source: [facility] 3:07 PM CLINIC OTHER CAMPUS REPOSITORY O ID: [id number] Author: Hakeem Berry Service: (none) Author Type: Customer Retention Representative Type: Progress Notes Filed: 05/14/2018 5:25 PM Note Text: Subjective Regina Pereira is a 67 year old female who presents for Back Pain. Pt states she is no longer in pain management has been out of it for 2 months due to not returning phone call for pill count. Back Pain This is a recurrent problem. The current episode started more than 1 week ago. Pain location: tailbone. The pain is at a severity of 10/10. The pain is the same all the time. Associated symptoms include headaches, bowel incontinence (diarrhea), pelvic pain (occasional), leg pain (radiates from hips to legs) and weakness (weakness in both legs ). Pertinent negatives include no chest pain, no fever, no numbness, no weight loss, no abdominal pain, no abdominal swelling and no tingling. Review of Systems Constitutional: Negative for fever and weight loss. Cardiovascular: Negative for chest pain. Gastrointestinal: Positive for bowel incontinence (diarrhea). Negative for abdominal pain. Genitourinary: Positive for pelvic pain (occasional). Musculoskeletal: Positive for back pain. Neurological: Positive for weakness (weakness in both legs ) and headaches. Negative for tingling and numbness. PAST MEDICAL HISTORY Diagnosis Date - Acquired hypothyroidism - Anxiety - Compression fracture of lumbar vertebra (HCC) - DDD (degenerative disc disease), lumbar - Depression - H/O blood clots - Hypertension - PE (pulmonary thromboembolism) (HCC) - Scoliosis PAST SURGICAL HISTORY Procedure Laterality Date - BREAST LUMPECTOMY HX Right - SECTION HX 1984 - HYSTERECTOMY - LAPAROSCOPIC EXC ENDOMETRIOSIS/CYST FAMILY HISTORY Problem Relation Age of Onset - Diabetes Mother - Hypertension Mother - Alcohol/Drug Mother - Cancer Mother - other (Depression/Anxiety) Mother - Alcohol/Drug Father - Diabetes Sister - Hypertension Sister Social History Marital status: Spouse name: Years of education: Number of children: Social History Main Topics Smoking status: Former Smoker Packs/day: 0.00 Years: 0.00 Types: Cigarettes Smokeless tobacco: Never Used Alcohol use: Yes Comment: rarely Drug use: No Sexual activity: Not Currently Partners with: Male Other Topics Concern Service No Blood Transfusions Yes Caffeine Concern Yes Comment:1 cup tea daily Sleep Concern Yes Stress Concern No Weight Concern Yes Special Diet No Exercise No Seat Belt Yes Current Meds lisinopril-hydrochlorothiazide (PRINZIDE, ZESTORETIC) 20-25 mg per tablet TAKE ONE TABLET BY MOUTH EVERY DAY rivaroxaban (XARELTO) 20 mg tablet Take 1 tablet by mouth daily with dinner. amoxicillin/potassium clav (AUGMENTIN ORAL) Take by mouth. risperiDONE (RISPERDAL) 0.5 mg tablet Take 1 tablet by mouth twice daily. sertraline (ZOLOFT) 100 mg tablet Take 1 tablet by mouth once daily. levothyroxine (SYNTHROID) 50 mcg tablet Take 1 tablet by mouth once daily. rivaroxaban (XARELTO) 15 mg tablet Take one tab by mouth twice daily for the next 21 days. lisinopril-hydrochlorothiazide (PRINZIDE,ZESTORETIC) 10-12.5 mg per tablet Take 1 tablet by mouth once daily. Objective Ht 5' 9 (1.75m) Physical Exam CNOV Observed: 05/13/2018 Status: COMPLETED Source: [facility] 3:00 PM [facility] OTHER [place] REPOSITORY Office Visit ([facility]) REGINA PEREIRA ([id number]) 1950 F Date Time Provider Department 05/13/18 3:00 PM DARRON FAIRCHILD ([facility]) [facility] During your visit today, we recorded the following information about you: Temperature Pulse Blood pressure Height 98.4 degrees 98/minute 116/80 1.753 m Hakeem Berry 05/14/2018 5:25 PM Signed Subjective Regina Pereira is a 67 year old female who presents for Back Pain. Pt states she is no longer in pain management has been out of it for 2 months due to not returning phone call for pill count. Back Pain This is a recurrent problem. The current episode started more than 1 week ago. Pain location: tailbone. The pain is at a severity of 10/10. The pain is the same all the time. Associated symptoms include headaches, bowel incontinence (diarrhea), pelvic pain (occasional), leg pain (radiates from hips to legs) and weakness (weakness in both legs ). Pertinent negatives include no chest pain, no fever, no numbness, no weight loss, no abdominal pain, no abdominal swelling and no tingling. Review of Systems Constitutional: Negative for fever and weight loss. Cardiovascular: Negative for chest pain. Gastrointestinal: Positive for bowel incontinence (diarrhea). Negative for abdominal pain. Genitourinary: Positive for pelvic pain (occasional). Musculoskeletal: Positive for back pain. Neurological: Positive for weakness (weakness in both legs ) and headaches. Negative for tingling and numbness. PAST MEDICAL HISTORY Diagnosis Date - Acquired hypothyroidism - Anxiety - Compression fracture of lumbar vertebra (HCC) - DDD (degenerative disc disease), lumbar - Depression - H/O blood clots - Hypertension - PE (pulmonary thromboembolism) (HCC) - Scoliosis PAST SURGICAL HISTORY Procedure Laterality Date - BREAST LUMPECTOMY HX Right - SECTION HX 1984 - HYSTERECTOMY - LAPAROSCOPIC EXC ENDOMETRIOSIS/CYST FAMILY HISTORY Problem Relation Age of Onset - Diabetes Mother - Hypertension Mother - Alcohol/Drug Mother - Cancer Mother - other (Depression/Anxiety) Mother - Alcohol/Drug Father - Diabetes Sister - Hypertension Sister Social History Marital status: Spouse name: Years of education: Number of children: Social History Main Topics Smoking status: Former Smoker Packs/day: 0.00 Years: 0.00 Types: Cigarettes Smokeless tobacco: Never Used Alcohol use: Yes Comment: rarely Drug use: No Sexual activity: Not Currently Partners with: Male Other Topics Concern Service No Blood Transfusions Yes Caffeine Concern Yes Comment:1 cup tea daily Sleep Concern Yes Stress Concern No Weight Concern Yes Special Diet No Exercise No Seat Belt Yes Current Meds lisinopril-hydrochlorothiazide (PRINZIDE, ZESTORETIC) 20-25 mg per tablet TAKE ONE TABLET BY MOUTH EVERY DAY rivaroxaban (XARELTO) 20 mg tablet Take 1 tablet by mouth daily with dinner. amoxicillin/potassium clav (AUGMENTIN ORAL) Take by mouth. risperiDONE (RISPERDAL) 0.5 mg tablet Take 1 tablet by mouth twice daily. sertraline (ZOLOFT) 100 mg tablet Take 1 tablet by mouth once daily. levothyroxine (SYNTHROID) 50 mcg tablet Take 1 tablet by mouth once daily. rivaroxaban (XARELTO) 15 mg tablet Take one tab by mouth twice daily for the next 21 days. lisinopril-hydrochlorothiazide (PRINZIDE,ZESTORETIC) 10-12.5 mg per tablet Take 1 tablet by mouth once daily. Objective Ht 5' 9 (1.75m) Physical Exam Darron Fairchild APRN.CNP 05/14/2018 5:25 PM Signed The patient left without being seen. Darron Fairchild APRN.CNP PATIENT LEFT WITHOUT BEING SEEN. Darron Fairchild APRN.CNP PATIENT LEFT WITHOUT BEING SEEN. Darron Fairchild APRN.CNP Referring Provider: DARRON FAIRCHILD (JONES) [[id number]] Allergies As of Date: 05/13/2018 (No Active Allergies) Date Reviewed: 05/13/2018 Reviewed by: Hakeem (Ma) Kristi - Fully Assessed Reason for Visit: Back Pain [12] Patient Left Without Being Seen [2006] Missed Appointment [1304] Cmt: Patient Left Without Being Seen Reason For Visit History Recorded Primary Visit Diagnosis:Chronic pain syndrome [G89.4] Other Visit Diagnosis:Patient left without being seen [Z53.21] Prescriptions as of 05/13/2018 Sig: LISINOPRIL 20 MG-HYDROCHLOROT* TAKE ONE TABLET BY MOUTH EVER* RIVAROXABAN 20 MG TABLET Take 1 tablet by mouth daily * AUGMENTIN ORAL Take by mouth. RISPERIDONE 0.5 MG TABLET Take 1 tablet by mouth twice * SERTRALINE 100 MG TABLET Take 1 tablet by mouth once d* LEVOTHYROXINE 50 MCG TABLET Take 1 tablet by mouth once d* Patient not taking: Reported on 04/23/2018 RIVAROXABAN 15 MG TABLET Take one tab by mouth twice d* Patient not taking: Reported on 12/15/2017 LISINOPRIL 10 MG-HYDROCHLOROT* Take 1 tablet by mouth once d* Problem List As Of Date 05/13/2018 Noted Resolved Anxiety [F41.9] Compression fracture of lumbar vertebra (HCC) [* Depression [F32.9] DDD (degenerative disc disease), lumbar [M51.36] H/O blood clots [Z86.718] Hypertension [I10] Scoliosis [M41.9] Level of Service: OFFICE VISIT NO CHARGE WITH PROCEDURE [[id number]] Encounter Status:Closed by DARRON FAIRCHILD on 05/14/18 CBC Collected: 05/13/2018 Status: F Source: [facility] 10:52 AM [facility] REPOSITORY TYPE CODE TESTS RESULT OUT OF REFERENCE UNITS RANGE LAB WBC(LOINC) 4.50-10.80 10 3/mcL High WBC 14.40 LAB RBCCT(LOINC 4.10-5.30 10 6/mcL ) RBC 4.28 LAB HGB(LOINC) 12.0-16.0 G/dL Hgb 13.9 LAB HCT(LOINC) 34.0-46.0 % Hct 41.4 LAB MCV(LOINC) 80.0-99.0 fL MCV 96.8 LAB MCH(LOINC) 27.0-33.0 pg MCH 32.5 LAB MCHC(LOINC) 32.0-36.0 G/dL MCHC 33.6 LAB RDW(LOINC) 11.5-15.5 % RDW 14.7 LAB PLT(LOINC) 150-450 10 3/mcL Platelet 393 LAB MPV(LOINC) 6.6-10.5 fL Low MPV 6.2 Performed By: #### ADALISHA, ANEU, CBC, GFR, BMP #### [place] [address] .AUTO DIFF Collected: 05/13/2018 Status: F Source: [facility] 10:52 AM [facility] REPOSITORY TYPE CODE TESTS RESULT OUT OF REFERENCE UNITS RANGE LAB LUIS(LOINC) 50.0-75.0 % Neutrophil % 71.8 LAB LYM(LOINC) 20.0-40.0 % Low Lymphocyte % 19.3 LAB MON(LOINC) 2.0-13.0 % Monocyte % 7.7 LAB EO(LOINC) 0.0-6.0 % Eosinophil % 0.3 LAB BAS(LOINC) 0.0-2.5 % Basophil % 0.9 LAB ABLYM(LOIN 0.90-4.32 10 3/mcL C) Lymphocyte, 2.80 Absolute LAB LAVINIA(LOINC 0.09-1.40 10 3/mcL ) Monocyte, 1.10 Absolute LAB AEOS(LOINC 0.00-0.65 10 3/mcL ) Eosinophil, 0.00 Absolute LAB ABAS(LOINC 0.00-0.27 10 3/mcL ) Basophil, 0.10 Absolute Performed By: #### ADALISHA, ANEU, CBC, GFR, BMP #### [place] [address] .NEUABS Collected: 05/13/2018 Status: F Source: [facility] 10:52 AM [facility] REPOSITORY TYPE CODE TESTS RESULT OUT OF REFERENCE UNITS RANGE LAB ANEU(LOINC) 2.25-8.10 10 3/mcL High Neutrophil, 10.60 Absolute Performed By: #### ADALISHA, ANEU, CBC, GFR, BMP #### [place] [address] BMP Collected: 05/13/2018 Status: F Source: [facility] 10:52 AM [facility] REPOSITORY TYPE CODE TESTS RESULT OUT OF REFERENCE UNITS RANGE LAB GLU(LOINC) 82-115 mg/dL Glucose Level 83 LAB NA(LOINC) 136-145 mEq/L Low Sodium Level 133 LAB K(LOINC) 3.5-5.0 mEq/L Potassium Level 3.9 LAB CL(LOINC) 98-110 mEq/L Low Chloride 96 LAB CO2(LOINC) 22-32 mEq/L CO2 24 LAB EBAL(LOINC 4.0-15.0 mEq/L ) Electrolyte Balance 13.0 LAB BUN(LOINC) 8.0-22.0 mg/dL BUN 22.0 LAB CRE(LOINC) 0.50-1.20 mg/dL Creatinine Lvl (s) 0.83 LAB BC(LOINC) 10.0-22.0 ratio High BUN/Creatinine 26.5 Ratio LAB CA(LOINC) 8.4-10.1 mg/dL Calcium Lvl 9.0 Performed By: #### ADIFF, ANEU, CBC, GFR, BMP #### [place] [address] .GFR Collected: 05/13/2018 Status: F Source: [facility] 10:52 AM [facility] REPOSITORY TYPE CODE TESTS RESULT OUT OF REFERENCE UNITS RANGE LAB GFRAA(LOINC ml/min/1.73 ) sqm GFR >60 [facility] Result Comment: GFR Population mean for , Non- Americans Ages 20-29 = 116 mL/min/1.73 sq.m. Ages 30-39 = 107 mL/min/1.73 sq.m. Ages 40-49 = 99 mL/min/1.73 sq.m. Ages 50-59 = 93 mL/min/1.73 sq.m. Ages 60-69 = 85 mL/min/1.73 sq.m. Ages 70+ = 75 mL/min/1.73 sq.m. Chronic Kidney Disease: Less than 60 mL/min/1.73 square meters End Stage Renal Disease: Less than 15 mL/min/1.73 square meters LAB GFRNO(LOINC) ml/min/1.73sqm GFR Non- >60 Result Comment: GFR Population mean for , Non- Americans Ages 20-29 = 116 mL/min/1.73 sq.m. Ages 30-39 = 107 mL/min/1.73 sq.m. Ages 40-49 = 99 mL/min/1.73 sq.m. Ages 50-59 = 93 mL/min/1.73 sq.m. Ages 60-69 = 85 mL/min/1.73 sq.m. Ages 70+ = 75 mL/min/1.73 sq.m. Chronic Kidney Disease: Less than 60 mL/min/1.73 square meters End Stage Renal Disease: Less than 15 mL/min/1.73 square meters Performed By: #### ADIFF, ANEU, CBC, GFR, BMP #### [place] [address] ED PROVIDER NOTE Observed: 05/10/2018 Status: F Source: [facility] 11:13 AM SYSTEM REPOSITORY Emergency Department Encounter [facility] EMERGENCY DEPT Patient: Regina Pereira : 1950 Date of Evaluation: 05/10/2018 ED Provider: MARVIN Cheney CNP Chief Complaint No chief complaint on file. EKUK Regina Pereira is a 67 y.o. female who presents to the emergency department Requesting a refill of Percocet for her chronic back pain. Patient states that she saw her PCP on the fourth and was given a prescription for 7 days worth of Percocet. Patient states that she has been taking 1-2 tabs and she has run out. Patient describes this as her chronic back pain, unchanged. She states that she is attempted lidocaine patches, heat, Motrin, Tylenol without little to no relief. She is previously in pain management but was kicked out due to missing a pill counts. Patient states that she has been trying to call pain management to be reestablished for the last 2 weeks but they have not called her back. She currently rates her pain 9 out of 10. Numbness weakness tingling is absent. Loss of bowel or bladder control is absent. Saddle anesthesia absent. Fevers absent. IV Drug Use absent. ROS: At least 8 systems reviewed and otherwise acutely negative except as in the EKUK. Past History Past Medical History: Diagnosis Date ? Chronic back pain ? DDD (degenerative disc disease), lumbar ? Depression ? Hypertension ? Scoliosis ? Thyroid disease Past Surgical History: Procedure Laterality Date ? SECTION ? HYSTERECTOMY Social History Social History ? Marital status: Spouse name: N/A ? Number of children: N/A ? Years of education: N/A Social History Main Topics ? Smoking status: Former Smoker ? Smokeless tobacco: Never Used ? Alcohol use No ? Drug use: No ? Sexual activity: Not on file Other Topics Concern ? Not on file Social History Narrative ? No narrative on file Medications/Allergies Previous Medications LIDOCAINE (LIDODERM) 5 % Place 1 patch onto the skin daily 12 hours on, 12 hours off. LISINOPRIL-HYDROCHLOROTHIAZIDE (PRINZIDE;ZESTORETIC) 10-12.5 MG PER TABLET Take 1 tablet by mouth NAPROXEN (NAPROSYN) 500 MG TABLET Take 1 tablet by mouth 2 times daily for 7 days PREDNISONE (DELTASONE) 10 MG TABLET 5 tablets PO Qday X 3, then 4 tablets PO Qday X 3, then 3 tablets PO Qday X 3, then 2 tablets PO Qday X 3, then 1 tablets PO Qday X 3, then stop. RISPERIDONE (RISPERDAL) 0.5 MG TABLET Take 1 tablet by mouth 2 times daily RIVAROXABAN (XARELTO) 15 MG TABS TABLET Take 1 tablet by mouth 2 times daily (with meals) SERTRALINE (ZOLOFT) 100 MG TABLET Take 1 tablet by mouth daily TIZANIDINE (ZANAFLEX) 4 MG TABLET Take 1 tablet by mouth 3 times daily No Known Allergies Physical Exam ED Triage Vitals BP Temp Temp src Pulse Resp SpO2 Height Weight -- -- -- -- -- -- -- -- GENERAL APPEARANCE: Awake and alert. Cooperative. HEAD: Normocephalic. EYES: Sclera anicteric. ENT: Tolerates saliva. NECK: Supple. LUNGS: Respirations unlabored. BACK: There is not thoracic or lumbar midline tenderness to palpation or step-offs. Paraspinal tenderness to palpation is present in the bilateral lumbosacral region. No overlying rashes. LE strength is 5/5. LE light touch is intact. LE DTR's are 2+ in the patellas and achilles. The patient is sitting in a wheelchair but states that she does not use a wheelchair at home and she is able to walk up and down approximately 4 stairs. SKIN: Warm and dry. Diagnostics Labs: No results found for this visit on 05/10/18. Radiographs: No results found. ED Course and MDM In brief, Regina Pereira is a 67 y.o. female who presented to the emergency department Requesting a refill on a prescription for Percocet due to her chronic back pain. The patient's chart was reviewed and she was seen by her PCP 3 days ago. At that time the patient was given a prescription for a 7 day supply of Percocet and referred to pain management. The patient has been seen almost daily since the beginning of April for chronic back pain. The patient is alert and oriented ?3, no obvious distress, physical exam shows no spinal tenderness, slight pain to the lumbar paraspinal area, neurologically intact and not displaying any red flag symptoms. Patient is sitting in the ER room in a wheelchair. I did ask her if she uses a wheelchair lift time and she stated that she only uses a wheelchair in the hospital. She states that she is able to walk up approximately 4 stairs at home without difficulty. I attempted to have a conversation with the patient in regard to the treatment of her chronic pain, patient was not receptive. She was offered Toradol here in the ER which she refused. She was advised to call her PCP on Friday to arrange follow-up with pain management clinic. Based on the history and physical exam I do not feel that the patient is demonstrating any acute illness. Patient did not wait for her discharge paperwork, LEFT with her . I estimate there is LOW risk for (including but not limited to) RAPIDLY EXPANDING OR RUPTURED AAA, AORTIC DISSECTION, CAUDA EQUINA SYNDROME, or EPIDURAL MASS LESION thus I consider the discharge disposition reasonable. Regina Pereira (or their surrogate) and I have discussed the diagnosis and risks, and we agree with discharging home with close follow-up. We also discussed returning to the Emergency Department immediately if new or worsening symptoms occur. We have discussed the symptoms which are most concerning that necessitate immediate return. ED Medication Orders None Final Impression 1. Chronic bilateral low back pain without sciatica DISPOSITION Decision To Discharge 05/10/2018 11:41:02 AM Follow-up No Horton MD [address] [facility] [address] [facility] [id number] Schedule an appointment as soon as possible for a visit in 1 day New Prescriptions No medications on file (Please note that portions of this note may have been completed with a voice recognition program. 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 Back Pain This is a chronic problem. The current episode started more than 1 week ago. The problem occurs constantly. The problem has been gradually worsening. The pain is present in the lumbar spine and sacro- iliac joint. The quality of the pain is described as stabbing, shooting and aching. Associated symptoms include pelvic pain, leg pain and weakness. Pertinent negatives include no chest pain, no fever, no numbness, no weight loss, no headaches, no abdominal pain, no abdominal swelling, no bowel incontinence, no perianal numbness, no bladder incontinence, no dysuria, no paresthesias, no paresis and no tingling. She has tried ice and heat for the symptoms. The treatment provided no relief. Review of Systems Constitutional: Negative for chills, fever and weight loss. HENT: Negative for congestion, ear pain and sore throat. Eyes: Negative for blurred vision and discharge. Respiratory: Negative for cough and shortness of breath. Cardiovascular: Negative for chest pain, palpitations and PND. Gastrointestinal: Negative for abdominal pain, blood in stool, bowel incontinence, constipation, diarrhea, nausea and vomiting. Genitourinary: Positive for pelvic pain. Negative for bladder incontinence, dysuria, frequency, hematuria and urgency. Vaginal itch and burn Musculoskeletal: Positive for back pain. Negative for joint pain and neck pain. Skin: Negative for rash. Neurological: Positive for weakness. Negative for dizziness, tingling, sensory change, numbness, headaches and paresthesias. Endo/Heme/Allergies: Negative. Psychiatric/Behavioral: Negative for depression, memory loss and suicidal ideas. The patient is not nervous/anxious and does not have insomnia. PAST MEDICAL HISTORY Diagnosis Date - Acquired hypothyroidism - Anxiety - Compression fracture of lumbar vertebra (HCC) - DDD (degenerative disc disease), lumbar - Depression - H/O blood clots - Hypertension - PE (pulmonary thromboembolism) (HCC) - Scoliosis PAST SURGICAL HISTORY Procedure Laterality Date - BREAST LUMPECTOMY HX Right - SECTION HX 1984 - HYSTERECTOMY - LAPAROSCOPIC EXC ENDOMETRIOSIS/CYST FAMILY HISTORY Problem Relation Age of Onset - Diabetes Mother - Hypertension Mother - Alcohol/Drug Mother - Cancer Mother - other (Depression/Anxiety) Mother - Alcohol/Drug Father - Diabetes Sister - Hypertension Sister Social History Marital status: Spouse name: Years of education: Number of children: Social History Main Topics Smoking status: Former Smoker Packs/day: 0.00 Years: 0.00 Types: Cigarettes Smokeless tobacco: Never Used Alcohol use: Yes Comment: rarely Drug use: No Sexual activity: Not Currently Partners with: Male Other Topics Concern Service No Blood Transfusions Yes Caffeine Concern Yes Comment:1 cup tea daily Sleep Concern Yes Stress Concern No Weight Concern Yes Special Diet No Exercise No Seat Belt Yes Current Meds lisinopril-hydrochlorothiazide (PRINZIDE, ZESTORETIC) 20-25 mg per tablet TAKE ONE TABLET BY MOUTH EVERY DAY oxyCODONE-acetaminophen (PERCOCET) 5-325 mg tablet Take 1 tablet by mouth four times daily as needed for Pain for up to 7 days. rivaroxaban (XARELTO) 20 mg tablet Take 1 tablet by mouth daily with dinner. risperiDONE (RISPERDAL) 0.5 mg tablet Take 1 tablet by mouth twice daily. sertraline (ZOLOFT) 100 mg tablet Take 1 tablet by mouth once daily. amoxicillin/potassium clav (AUGMENTIN ORAL) Take by mouth. levothyroxine (SYNTHROID) 50 mcg tablet Take 1 tablet by mouth once daily. rivaroxaban (XARELTO) 15 mg tablet Take one tab by mouth twice daily for the next 21 days. lisinopril-hydrochlorothiazide (PRINZIDE,ZESTORETIC) 10-12.5 mg per tablet Take 1 tablet by mouth once daily. Objective There were no vitals taken for this visit. Physical Exam Constitutional: She is oriented to person, place, and time and well-developed, well-nourished, and in no distress. No distress. HENT: Head: Normocephalic and atraumatic. Right Ear: External ear normal. Left Ear: External ear normal. Nose: Nose normal. Mouth/Throat: Oropharynx is clear and moist. No oropharyngeal exudate. Eyes: Pupils are equal, round, and reactive to light. EOM are normal. Neck: Normal range of motion. Neck supple. No JVD present. No tracheal deviation present. No thyromegaly present. Cardiovascular: Normal rate, regular rhythm and normal heart sounds. Exam reveals no gallop and no friction rub. No murmur heard. Pulmonary/Chest: Effort normal and breath sounds normal. No stridor. No respiratory distress. She has no wheezes. She has no rales. She exhibits no tenderness. Abdominal: Soft. Bowel sounds are normal. She exhibits no distension and no mass. There is no tenderness. There is no rebound and no guarding. Musculoskeletal: Normal range of motion. She exhibits no edema or tenderness. Lymphadenopathy: She has no cervical adenopathy. Neurological: She is alert and oriented to person, place, and time. Gait normal. Skin: Skin is warm and dry. No rash noted. Psychiatric: Mood, memory, affect and judgment normal. Nursing note and vitals reviewed. Patient Instructions 1) Please keep pulmonology appt for assessment of embolism and continued use of xarelto. 2) Pain management referral has been set up. ASSESSMENT/PLAN: 1. Chronic bilateral low back pain with bilateral sciatica - ICD9: 724.2, 724.3, 338.29, ICD10: M54.42, M54.41, G89.29 (primary diagnosis) -Pt has longstanding back issues and sees a spine doctor. She was given ascript for PT, which she has not begun yet. She is chronically in the ED requesting percocet. We had a long talk about that today. I once again informed her that I do not do chronic pain management. I did set up another referral to pain management. She was discharged from her previous provider because of a discrepancy in pill count. 2. Other chronic pulmonary embolism without acute cor pulmonale (HCC) - ICD9: 416.2, ICD10: I27.82 -Pt has been on anticoagulation for a PE going on 6 mos. I would like her to f/u with pulm to determine if this needs to be continued life long. - CONSULT TO PULMONARY MEDICINE 3. Chronic vaginitis - ICD9: 616.10, ICD10: N76.1 -I suspect that pt has some element of vaginal atrophy. I recommended lubrication and provided her with one diflucan. No Horton MD, MED CNOV Observed: 05/07/2018 Status: COMPLETED Source: [facility] 11:00 AM CLINIC OTHER CAMPUS REPOSITORY Office Visit ([facility]) REGINA PEREIRA ([id number]) 1950 F Date Time Provider Department 05/07/18 11:00 AM NO HORTON [facility] During your visit today, we recorded the following information about you: Temperature Pulse Blood pressure Weight 97.7 degrees 94/minute 120/70 112.5 kg Height 1.753 m No Horton MD, MED 05/07/2018 12:39 PM Signed Subjective The history is provided by the patient. Back Pain This is a chronic problem. The current episode started more than 1 week ago. The problem occurs constantly. The problem has been gradually worsening. The pain is present in the lumbar spine and sacro-iliac joint. The quality of the pain is described as stabbing, shooting and aching. Associated symptoms include pelvic pain, leg pain and weakness. Pertinent negatives include no chest pain, no fever, no numbness, no weight loss, no headaches, no abdominal pain, no abdominal swelling, no bowel incontinence, no perianal numbness, no bladder incontinence, no dysuria, no paresthesias, no paresis and no tingling. She has tried ice and heat for the symptoms. The treatment provided no relief. Review of Systems Constitutional: Negative for chills, fever and weight loss. HENT: Negative for congestion, ear pain and sore throat. Eyes: Negative for blurred vision and discharge. Respiratory: Negative for cough and shortness of breath. Cardiovascular: Negative for chest pain, palpitations and PND. Gastrointestinal: Negative for abdominal pain, blood in stool, bowel incontinence, constipation, diarrhea, nausea and vomiting. Genitourinary: Positive for pelvic pain. Negative for bladder incontinence, dysuria, frequency, hematuria and urgency. Vaginal itch and burn Musculoskeletal: Positive for back pain. Negative for joint pain and neck pain. Skin: Negative for rash. Neurological: Positive for weakness. Negative for dizziness, tingling, sensory change, numbness, headaches and paresthesias. Endo/Heme/Allergies: Negative. Psychiatric/Behavioral: Negative for depression, memory loss and suicidal ideas. The patient is not nervous/anxious and does not have insomnia. PAST MEDICAL HISTORY Diagnosis Date - Acquired hypothyroidism - Anxiety - Compression fracture of lumbar vertebra (HCC) - DDD (degenerative disc disease), lumbar - Depression - H/O blood clots - Hypertension - PE (pulmonary thromboembolism) (HCC) - Scoliosis PAST SURGICAL HISTORY Procedure Laterality Date - BREAST LUMPECTOMY HX Right - SECTION HX 1984 - HYSTERECTOMY - LAPAROSCOPIC EXC ENDOMETRIOSIS/CYST FAMILY HISTORY Problem Relation Age of Onset - Diabetes Mother - Hypertension Mother - Alcohol/Drug Mother - Cancer Mother - other (Depression/Anxiety) Mother - Alcohol/Drug Father - Diabetes Sister - Hypertension Sister Social History Marital status: Spouse name: Years of education: Number of children: Social History Main Topics Smoking status: Former Smoker Packs/day: 0.00 Years: 0.00 Types: Cigarettes Smokeless tobacco: Never Used Alcohol use: Yes Comment: rarely Drug use: No Sexual activity: Not Currently Partners with: Male Other Topics Concern Service No Blood Transfusions Yes Caffeine Concern Yes Comment:1 cup tea daily Sleep Concern Yes Stress Concern No Weight Concern Yes Special Diet No Exercise No Seat Belt Yes Current Meds lisinopril-hydrochlorothiazide (PRINZIDE, ZESTORETIC) 20-25 mg per tablet TAKE ONE TABLET BY MOUTH EVERY DAY oxyCODONE-acetaminophen (PERCOCET) 5-325 mg tablet Take 1 tablet by mouth four times daily as needed for Pain for up to 7 days. rivaroxaban (XARELTO) 20 mg tablet Take 1 tablet by mouth daily with dinner. risperiDONE (RISPERDAL) 0.5 mg tablet Take 1 tablet by mouth twice daily. sertraline (ZOLOFT) 100 mg tablet Take 1 tablet by mouth once daily. amoxicillin/potassium clav (AUGMENTIN ORAL) Take by mouth. levothyroxine (SYNTHROID) 50 mcg tablet Take 1 tablet by mouth once daily. rivaroxaban (XARELTO) 15 mg tablet Take one tab by mouth twice daily for the next 21 days. lisinopril-hydrochlorothiazide (PRINZIDE,ZESTORETIC) 10-12.5 mg per tablet Take 1 tablet by mouth once daily. Objective There were no vitals taken for this visit. Physical Exam Constitutional: She is oriented to person, place, and time and well-developed, well-nourished, and in no distress. No distress. HENT: Head: Normocephalic and atraumatic. Right Ear: External ear normal. Left Ear: External ear normal. Nose: Nose normal. Mouth/Throat: Oropharynx is clear and moist. No oropharyngeal exudate. Eyes: Pupils are equal, round, and reactive to light. EOM are normal. Neck: Normal range of motion. Neck supple. No JVD present. No tracheal deviation present. No thyromegaly present. Cardiovascular: Normal rate, regular rhythm and normal heart sounds. Exam reveals no gallop and no friction rub. No murmur heard. Pulmonary/Chest: Effort normal and breath sounds normal. No stridor. No respiratory distress. She has no wheezes. She has no rales. She exhibits no tenderness. Abdominal: Soft. Bowel sounds are normal. She exhibits no distension and no mass. There is no tenderness. There is no rebound and no guarding. Musculoskeletal: Normal range of motion. She exhibits no edema or tenderness. Lymphadenopathy: She has no cervical adenopathy. Neurological: She is alert and oriented to person, place, and time. Gait normal. Skin: Skin is warm and dry. No rash noted. Psychiatric: Mood, memory, affect and judgment normal. Nursing note and vitals reviewed. Patient Instructions 1) Please keep pulmonology appt for assessment of embolism and continued use of xarelto. 2) Pain management referral has been set up. ASSESSMENT/PLAN: 1. Chronic bilateral low back pain with bilateral sciatica - ICD9: 724.2, 724.3, 338.29, ICD10: M54.42, M54.41, G89.29 (primary diagnosis) -Pt has longstanding back issues and sees a spine doctor. She was given ascript for PT, which she has not begun yet. She is chronically in the ED requesting percocet. We had a long talk about that today. I once again informed her that I do not do chronic pain management. I did set up another referral to pain management. She was discharged from her previous provider because of a discrepancy in pill count. 2. Other chronic pulmonary embolism without acute cor pulmonale (HCC) - ICD9: 416.2, ICD10: I27.82 -Pt has been on anticoagulation for a PE going on 6 mos. I would like her to f/u with pulm to determine if this needs to be continued life long. - CONSULT TO PULMONARY MEDICINE 3. Chronic vaginitis - ICD9: 616.10, ICD10: N76.1 -I suspect that pt has some element of vaginal atrophy. I recommended lubrication and provided her with one diflucan. No Horton MD, MED No Horton MD, MED 05/07/2018 11:24 AM Signed 1) Please keep pulmonology appt for assessment of embolism and continued use of xarelto. 2) Pain management referral has been set up. Referring Provider: DARRON FAIRCHILD ([facility]) [[id number]] Allergies As of Date: 05/07/2018 Noted Allergy Reaction MORPHINE 07/22/2017 9 - Itching Date Reviewed: 05/07/2018 Reviewed by: No Horton - Fully Assessed Reason for Visit: Back Pain [12] Primary Visit Diagnosis:Chronic bilateral low back pain with bilateral sciatica [M54.42, M54.41, G89.29] Other Visit Diagnoses:Other chronic pulmonary embolism without acute cor pulmonale (HCC) [I27.82] Chronic vaginitis [N76.1] Order(s):CONSULT TO PULMONARY MEDICINE [[id number]] Order #: [id number]: 1 fluconazole (DIFLUCAN) 150 mg tabletTake 1 tablet by mouth one time only for 1 dose.Disp: 1 tabletRfl: 0 Prescriptions as of 05/07/2018 Sig: LISINOPRIL 20 MG-HYDROCHLOROT* TAKE ONE TABLET BY MOUTH EVER* OXYCODONE-ACETAMINOPHEN 5 MG-* Take 1 tablet by mouth four t* RIVAROXABAN 20 MG TABLET Take 1 tablet by mouth daily * RISPERIDONE 0.5 MG TABLET Take 1 tablet by mouth twice * SERTRALINE 100 MG TABLET Take 1 tablet by mouth once d* FLUCONAZOLE 150 MG TABLET Take 1 tablet by mouth one ti* AUGMENTIN ORAL Take by mouth. LEVOTHYROXINE 50 MCG TABLET Take 1 tablet by mouth once d* Patient not taking: Reported on 04/23/2018 RIVAROXABAN 15 MG TABLET Take one tab by mouth twice d* Patient not taking: Reported on 12/15/2017 LISINOPRIL 10 MG-HYDROCHLOROT* Take 1 tablet by mouth once d* Problem List As Of Date 05/07/2018 Noted Resolved Anxiety [F41.9] Compression fracture of lumbar vertebra (HCC) [* Depression [F32.9] DDD (degenerative disc disease), lumbar [M51.36] H/O blood clots [Z86.718] Hypertension [I10] Scoliosis [M41.9] Other instructions from your clinician: 1) Please keep pulmonology appt for assessment of embolism and continued use of xarelto. 2) Pain management referral has been set up. Prescriptions ordered this encounter Disp Refills Start End FLUCONAZOLE 150 MG TABLET 1 ta* 0 05/07/2018 05/07/2018 Route: ORAL Sig: Take 1 tablet by mouth one time only for 1 dose. Disposition: Return if symptoms worsen or fail to improve. Follow-up and Disposition History Recorded Encounter Status:Closed by NO HORTON on 05/07/18 CNPN Observed: 05/07/2018 Status: COMPLETED Source: [facility] 12:00 AM CLINIC OTHER CAMPUS REPOSITORY Telephone ([facility]) REGINA PEREIRA ([id number]) 1950 F Date Time Provider Department 05/07/18 NO HORTON [facility] During your visit today, we recorded the following information about you: Mert Everett 05/07/2018 1:19 PM Signed Referral to Pulmonary sent thru [facility] portal [id number]. Mert Everett 05/07/2018 13:19:25 Mert Everett 05/14/2018 11:32 AM Signed Pt has scheduled. Mert Everett 05/14/2018 11:32:24 Allergies As of Date: 05/07/2018 Noted Allergy Reaction No Active Allergies DELETED: MORPHINE 07/22/2017 9 - Itching Date Reviewed: 05/07/2018 Reviewed by: No Horton - Fully Assessed Reason for Visit: Referral (Pulmonary) [Other] Prescriptions as of 05/07/2018 Sig: FLUCONAZOLE 150 MG TABLET Take 1 tablet by mouth one ti* LISINOPRIL 20 MG-HYDROCHLOROT* TAKE ONE TABLET BY MOUTH EVER* OXYCODONE-ACETAMINOPHEN 5 MG-* Take 1 tablet by mouth four t* RIVAROXABAN 20 MG TABLET Take 1 tablet by mouth daily * AUGMENTIN ORAL Take by mouth. RISPERIDONE 0.5 MG TABLET Take 1 tablet by mouth twice * SERTRALINE 100 MG TABLET Take 1 tablet by mouth once d* LEVOTHYROXINE 50 MCG TABLET Take 1 tablet by mouth once d* Patient not taking: Reported on 04/23/2018 RIVAROXABAN 15 MG TABLET Take one tab by mouth twice d* Patient not taking: Reported on 12/15/2017 LISINOPRIL 10 MG-HYDROCHLOROT* Take 1 tablet by mouth once d* Problem List As Of Date 05/07/2018 Noted Resolved Anxiety [F41.9] Compression fracture of lumbar vertebra (HCC) [* Depression [F32.9] DDD (degenerative disc disease), lumbar [M51.36] H/O blood clots [Z86.718] Hypertension [I10] Scoliosis [M41.9] Encounter Status:Closed by MERT EVERETT on 05/07/18 PROGRESS Observed: 05/05/2018 Status: COMPLETED Source: [facility] 3:35 PM CLINIC OTHER CAMPUS REPOSITORY O ID: [id number] Author: Kena Bennett Service: (none) Author Type: Registered Nurse Type: Progress Notes Filed: 05/05/2018 3:37 PM Note Text: PRIMARY CARE COORDINATION DISCHARGE Patient has been identified by name and date of : Yes Patient discharged from Primary Care Coordination: YES Goals met patient does not follow POC-continues to utilized ED as a physicians office as opposed to follow up with providers Goals not met Patient engagement has not occurred despite ongoing education provided regarding the importance of following the physician plan of treatment Patient knowledgeable and confident in contacting Health Care Providers for questions or concerns: YES Reinforced with patient and/or caregiver that Primary Care Coordination may be reinitiated if a change in status warrants navigation readmission: YES Discussed with: PCP What was the Focus/Challenges addressed in Care Coordination? Education on Chronic Disease Management Resources Disposition: Follow up with PCP Care Team Tab - End: YES Kena Bennett RN CNPTOUTREACH Observed: 05/05/2018 Status: COMPLETED Source: [facility] 12:00 AM [facility] OTHER CAMPUS REPOSITORY Patient Outreach ([facility]) REGINA PEREIRA ([id number]) 1950 F Date Time Provider Department 05/05/18 KENA BENNETT (JODIE) [facility] During your visit today, we recorded the following information about you: Kena Bennett RN 05/05/2018 3:37 PM Signed PRIMARY CARE COORDINATION DISCHARGE Patient has been identified by name and date of : Yes Patient discharged from Primary Care Coordination: YES Goals met patient does not follow POC-continues to utilized ED as a physicians office as opposed to follow up with providers Goals not met Patient engagement has not occurred despite ongoing education provided regarding the importance of following the physician plan of treatment Patient knowledgeable and confident in contacting Health Care Providers for questions or concerns: YES Reinforced with patient and/or caregiver that Primary Care Coordination may be reinitiated if a change in status warrants navigation readmission: YES Discussed with: PCP What was the Focus/Challenges addressed in Care Coordination? Education on Chronic Disease Management Resources Disposition: Follow up with PCP Care Team Tab - End: YES Kena Bennett RN Allergies As of Date: 05/05/2018 Noted Allergy Reaction MORPHINE 07/22/2017 9 - Itching Date Reviewed: 05/04/2018 Reviewed by: Darron Fairchild - Fully Assessed Prescriptions as of 05/05/2018 Sig: OXYCODONE-ACETAMINOPHEN 5 MG-* Take 1 tablet by mouth four t* RIVAROXABAN 20 MG TABLET Take 1 tablet by mouth daily * AUGMENTIN ORAL Take by mouth. RISPERIDONE 0.5 MG TABLET Take 1 tablet by mouth twice * SERTRALINE 100 MG TABLET Take 1 tablet by mouth once d* LEVOTHYROXINE 50 MCG TABLET Take 1 tablet by mouth once d* Patient not taking: Reported on 04/23/2018 RIVAROXABAN 15 MG TABLET Take one tab by mouth twice d* Patient not taking: Reported on 12/15/2017 LISINOPRIL 20 MG-HYDROCHLOROT* Take 1 tablet by mouth once d* LISINOPRIL 10 MG-HYDROCHLOROT* Take 1 tablet by mouth once d* Problem List As Of Date 05/05/2018 Noted Resolved Anxiety [F41.9] Compression fracture of lumbar vertebra (HCC) [* Depression [F32.9] DDD (degenerative disc disease), lumbar [M51.36] H/O blood clots [Z86.718] Hypertension [I10] Scoliosis [M41.9] Encounter Status:Closed by KENA BENNETT RN on 05/05/18 OBSOLETE Observed: 05/05/2018 Status: COMPLETED Source: [facility] 12:00 AM CLINIC OTHER [place] REPOSITORY Refill ([facility]) REGINA PEREIRA ([id number]) 1950 F Date Time Provider Department 05/05/18 NO HORTON [facility] During your visit today, we recorded the following information about you: Meg Hunt LPN 05/06/2018 8:14 AM Signed Pharmacy faxed requesting the following refill Pending Prescriptions Disp Refills LISINOPRIL 20 MG-HYDROCHLOROTHIAZIDE 25 MG TABLET 30 tablet 3 Sig: TAKE ONE TABLET BY MOUTH EVERY DAY EDOUARD: Yes Allergies: Morphine (home) [phone] (cell) Last Visit date: 05/04/2018 Future appointment: 05/07/18 The patients preferred pharmacy has been captured for this encounter? yes Request is for script(s) to be escript to pharmacy. OARRS Report for this patient was checked and validated:Not applicable Meg Hunt LPN Allergies As of Date: 05/05/2018 Noted Allergy Reaction MORPHINE 07/22/2017 9 - Itching Date Reviewed: 05/04/2018 Reviewed by: Darron Kearney) [place] - Fully Assessed Reason for Visit: Refill Request [94] Order(s):lisinopril-hydrochlorothiazide (PRINZIDE, ZESTORETIC) 20-25 mg per tabletTAKE ONE TABLET BY MOUTH EVERY DAYDisp: 30 tabletRfl: 3 Prescriptions as of 05/05/2018 Sig: LISINOPRIL 20 MG-HYDROCHLOROT* TAKE ONE TABLET BY MOUTH EVER* OXYCODONE-ACETAMINOPHEN 5 MG-* Take 1 tablet by mouth four t* RIVAROXABAN 20 MG TABLET Take 1 tablet by mouth daily * AUGMENTIN ORAL Take by mouth. RISPERIDONE 0.5 MG TABLET Take 1 tablet by mouth twice * SERTRALINE 100 MG TABLET Take 1 tablet by mouth once d* LEVOTHYROXINE 50 MCG TABLET Take 1 tablet by mouth once d* Patient not taking: Reported on 04/23/2018 RIVAROXABAN 15 MG TABLET Take one tab by mouth twice d* Patient not taking: Reported on 12/15/2017 LISINOPRIL 10 MG-HYDROCHLOROT* Take 1 tablet by mouth once d* Problem List As Of Date 05/05/2018 Noted Resolved Anxiety [F41.9] Compression fracture of lumbar vertebra (HCC) [* Depression [F32.9] DDD (degenerative disc disease), lumbar [M51.36] H/O blood clots [Z86.718] Hypertension [I10] Scoliosis [M41.9] Prescriptions ordered this encounter Disp Refills Start End LISINOPRIL 20 MG-HYDROCHLOROTHIAZIDE* 30 t* 3 05/06/2018 Cmt: This prescription was filled on 05/05/2018. Any refills authorized will be placed on file. Sig: TAKE ONE TABLET BY MOUTH EVERY DAY Medications Discontinued During This Encounter lisinopril-hydrochlorothiazide (PRIN* 30 t* 2 11/17/2017 05/06/2018 Route: ORAL Sig: Take 1 tablet by mouth once daily. Disc: Reason for discontinue is not on file. Encounter Status:Closed by NO HORTON on 05/06/18 PROGRESS Observed: 05/04/2018 Status: COMPLETED Source: [facility] 10:31 AM CLINIC OTHER CAMPUS REPOSITORY O ID: [id number] Author: Darron Kearney) Robi Service: (none) Author Type: Nurse Practitioner Type: Progress Notes Filed: 05/04/2018 7:14 PM Note Text: Subjective Regina Pereira is a 67 year old female who presents with complaint of Back Pain. Patient does not see pain mgmt currently - trying to get into another pain mgmt group. She was seeing a Pain Management group in [place]; she states that she was called for a pill count but did not get the message and was dropped. She states that she was dismissed from [facility] for the same reason. She states that she has seen 3 surgeons for her back pain and is not a surgical candidate. Patient refused Flu Vaccine. Svetlana Benites LPN The history is provided by the patient. Back Pain This is a chronic problem. The current episode started more than 1 week ago. The problem occurs constantly. The pain is present in the gluteal region. The quality of the pain is described as stabbing, aching and burning. The pain radiates to the left thigh and right thigh. The pain is at a severity of 10/10. The pain is the same all the time. Stiffness is present all day. Associated symptoms include headaches, pelvic pain, leg pain and weakness. Pertinent negatives include no chest pain, no fever, no numbness, no weight loss, no abdominal pain, no abdominal swelling, no bowel incontinence, no perianal numbness, no bladder incontinence, no dysuria and no tingling. Treatments tried: Injections (Pain Mgmt), medications Review of Systems Constitutional: Negative for fever and weight loss. HENT: Negative for congestion, ear pain and sore throat. Respiratory: Positive for shortness of breath. Negative for cough, hemoptysis, sputum production and wheezing. Cardiovascular: Negative for chest pain, palpitations, orthopnea and claudication. Gastrointestinal: Positive for diarrhea and nausea. Negative for abdominal pain, bowel incontinence, constipation, heartburn and vomiting. Genitourinary: Positive for pelvic pain. Negative for bladder incontinence and dysuria. Musculoskeletal: Positive for back pain and myalgias. Negative for falls, joint pain and neck pain. Neurological: Positive for weakness and headaches. Negative for tingling and numbness. PAST MEDICAL HISTORY Diagnosis Date - Acquired hypothyroidism - Anxiety - Compression fracture of lumbar vertebra (HCC) - DDD (degenerative disc disease), lumbar - Depression - H/O blood clots - Hypertension - PE (pulmonary thromboembolism) (HCC) - Scoliosis PAST SURGICAL HISTORY Procedure Laterality Date - BREAST LUMPECTOMY HX Right - SECTION HX 1984 - HYSTERECTOMY - LAPAROSCOPIC EXC ENDOMETRIOSIS/CYST FAMILY HISTORY Problem Relation Age of Onset - Diabetes Mother - Hypertension Mother - Alcohol/Drug Mother - Cancer Mother - other (Depression/Anxiety) Mother - Alcohol/Drug Father - Diabetes Sister - Hypertension Sister Social History Marital status: Spouse name: Years of education: Number of children: Social History Main Topics Smoking status: Former Smoker Packs/day: 0.00 Years: 0.00 Types: Cigarettes Smokeless tobacco: Never Used Alcohol use: Yes Comment: rarely Drug use: No Sexual activity: Not Currently Partners with: Male Other Topics Concern Service No Blood Transfusions Yes Caffeine Concern Yes Comment:1 cup tea daily Sleep Concern Yes Stress Concern No Weight Concern Yes Special Diet No Exercise No Seat Belt Yes Current Meds rivaroxaban (XARELTO) 20 mg tablet Take 1 tablet by mouth daily with dinner. risperiDONE (RISPERDAL) 0.5 mg tablet Take 1 tablet by mouth twice daily. sertraline (ZOLOFT) 100 mg tablet Take 1 tablet by mouth once daily. lisinopril-hydrochlorothiazide (PRINZIDE, ZESTORETIC) 20-25 mg per tablet Take 1 tablet by mouth once daily. amoxicillin/potassium clav (AUGMENTIN ORAL) Take by mouth. levothyroxine (SYNTHROID) 50 mcg tablet Take 1 tablet by mouth once daily. rivaroxaban (XARELTO) 15 mg tablet Take one tab by mouth twice daily for the next 21 days. lisinopril-hydrochlorothiazide (PRINZIDE,ZESTORETIC) 10-12.5 mg per tablet Take 1 tablet by mouth once daily. Objective Ht 5' 9 (1.75m) Wt 0 lb (0.0kg) Physical Exam Constitutional: She is oriented to person, place, and time and well-developed, well-nourished, and in no distress. No distress. HENT: Head: Normocephalic and atraumatic. Neck: Normal range of motion. No thyromegaly present. Cardiovascular: Normal rate, regular rhythm and normal heart sounds. Exam reveals no gallop and no friction rub. No murmur heard. Pulmonary/Chest: Effort normal and breath sounds normal. No respiratory distress. She has no wheezes. She has no rales. Abdominal: Soft. Bowel sounds are normal. She exhibits no distension. There is no tenderness. Musculoskeletal: She exhibits no edema. Lumbar back: She exhibits decreased range of motion, tenderness, pain and spasm. Back: Lymphadenopathy: She has no cervical adenopathy. Neurological: She is alert and oriented to person, place, and time. No cranial nerve deficit. Gait normal. Skin: Skin is warm and dry. No rash noted. She is not diaphoretic. No erythema. No pallor. Psychiatric: Mood, memory, affect and judgment normal. Nursing note and vitals reviewed. ASSESSMENT/PLAN: 1. Chronic midline low back pain with bilateral sciatica - ICD9: 724.2, 724.3, 338.29, ICD10: M54.41, M54.42, G89.29 (primary diagnosis) Chronic low back pain - Warm moist heat for 20 min three times a day - NSAIDS- 2. DDD (degenerative disc disease), lumbar - ICD9: 722.52, ICD10: M51.36 Chronic low back pain - Warm moist heat for 20 min three times a day - NSAIDS- - OXYCODONE-ACETAMINOPHEN 5 MG-325 MG TABLET Patient Instructions 1.) Please use a heating pad for 20 minutes at a time. 2.) May continue Percocet for severe pain; may ibuprofen or naproxen for moderate pain. 3.) Please follow up with [facility]. The patient indicates understanding of these issues and agrees with the plan. Darron Fairchild APRN.JONES CNOV Observed: 05/04/2018 Status: COMPLETED Source: [facility] 10:20 AM [facility] OTHER [place] REPOSITORY Office Visit ([facility]) REGINA PEREIRA ([id number]) 1950 F Date Time Provider Department 05/04/18 10:20 AM DARRON FAIRCHILD (JONES) [facility] During your visit today, we recorded the following information about you: Temperature Pulse Blood pressure Height 98.3 degrees 88/minute 132/84 1.753 m Darron Fairchild APRN.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 05/04/2018 7:14 PM Signed Subjective Regina Pereira is a 67 year old female who presents with complaint of Back Pain. Patient does not see pain mgmt currently - trying to get into another pain mgmt group. She was seeing a Pain Management group in [place]; she states that she was called for a pill count but did not get the message and was dropped. She states that she was dismissed from [facility] for the same reason. She states that she has seen 3 surgeons for her back pain and is not a surgical candidate. Patient refused Flu Vaccine. Svetlana Benites LPN The history is provided by the patient. Back Pain This is a chronic problem. The current episode started more than 1 week ago. The problem occurs constantly. The pain is present in the gluteal region. The quality of the pain is described as stabbing, aching and burning. The pain radiates to the left thigh and right thigh. The pain is at a severity of 10/10. The pain is the same all the time. Stiffness is present all day. Associated symptoms include headaches, pelvic pain, leg pain and weakness. Pertinent negatives include no chest pain, no fever, no numbness, no weight loss, no abdominal pain, no abdominal swelling, no bowel incontinence, no perianal numbness, no bladder incontinence, no dysuria and no tingling. Treatments tried: Injections (Pain Mgmt), medications Review of Systems Constitutional: Negative for fever and weight loss. HENT: Negative for congestion, ear pain and sore throat. Respiratory: Positive for shortness of breath. Negative for cough, hemoptysis, sputum production and wheezing. Cardiovascular: Negative for chest pain, palpitations, orthopnea and claudication. Gastrointestinal: Positive for diarrhea and nausea. Negative for abdominal pain, bowel incontinence, constipation, heartburn and vomiting. Genitourinary: Positive for pelvic pain. Negative for bladder incontinence and dysuria. Musculoskeletal: Positive for back pain and myalgias. Negative for falls, joint pain and neck pain. Neurological: Positive for weakness and headaches. Negative for tingling and numbness. PAST MEDICAL HISTORY Diagnosis Date - Acquired hypothyroidism - Anxiety - Compression fracture of lumbar vertebra (HCC) - DDD (degenerative disc disease), lumbar - Depression - H/O blood clots - Hypertension - PE (pulmonary thromboembolism) (HCC) - Scoliosis PAST SURGICAL HISTORY Procedure Laterality Date - BREAST LUMPECTOMY HX Right - SECTION HX 1984 - HYSTERECTOMY - LAPAROSCOPIC EXC ENDOMETRIOSIS/CYST FAMILY HISTORY Problem Relation Age of Onset - Diabetes Mother - Hypertension Mother - Alcohol/Drug Mother - Cancer Mother - other (Depression/Anxiety) Mother - Alcohol/Drug Father - Diabetes Sister - Hypertension Sister Social History Marital status: Spouse name: Years of education: Number of children: Social History Main Topics Smoking status: Former Smoker Packs/day: 0.00 Years: 0.00 Types: Cigarettes Smokeless tobacco: Never Used Alcohol use: Yes Comment: rarely Drug use: No Sexual activity: Not Currently Partners with: Male Other Topics Concern Service No Blood Transfusions Yes Caffeine Concern Yes Comment:1 cup tea daily Sleep Concern Yes Stress Concern No Weight Concern Yes Special Diet No Exercise No Seat Belt Yes Current Meds rivaroxaban (XARELTO) 20 mg tablet Take 1 tablet by mouth daily with dinner. risperiDONE (RISPERDAL) 0.5 mg tablet Take 1 tablet by mouth twice daily. sertraline (ZOLOFT) 100 mg tablet Take 1 tablet by mouth once daily. lisinopril-hydrochlorothiazide (PRINZIDE, ZESTORETIC) 20-25 mg per tablet Take 1 tablet by mouth once daily. amoxicillin/potassium clav (AUGMENTIN ORAL) Take by mouth. levothyroxine (SYNTHROID) 50 mcg tablet Take 1 tablet by mouth once daily. rivaroxaban (XARELTO) 15 mg tablet Take one tab by mouth twice daily for the next 21 days. lisinopril-hydrochlorothiazide (PRINZIDE,ZESTORETIC) 10-12.5 mg per tablet Take 1 tablet by mouth once daily. Objective Ht 5' 9 (1.75m) Wt 0 lb (0.0kg) Physical Exam Constitutional: She is oriented to person, place, and time and well-developed, well-nourished, and in no distress. No distress. HENT: Head: Normocephalic and atraumatic. Neck: Normal range of motion. No thyromegaly present. Cardiovascular: Normal rate, regular rhythm and normal heart sounds. Exam reveals no gallop and no friction rub. No murmur heard. Pulmonary/Chest: Effort normal and breath sounds normal. No respiratory distress. She has no wheezes. She has no rales. Abdominal: Soft. Bowel sounds are normal. She exhibits no distension. There is no tenderness. Musculoskeletal: She exhibits no edema. Lumbar back: She exhibits decreased range of motion, tenderness, pain and spasm. Back: Lymphadenopathy: She has no cervical adenopathy. Neurological: She is alert and oriented to person, place, and time. No cranial nerve deficit. Gait normal. Skin: Skin is warm and dry. No rash noted. She is not diaphoretic. No erythema. No pallor. Psychiatric: Mood, memory, affect and judgment normal. Nursing note and vitals reviewed. ASSESSMENT/PLAN: 1. Chronic midline low back pain with bilateral sciatica - ICD9: 724.2, 724.3, 338.29, ICD10: M54.41, M54.42, G89.29 (primary diagnosis) Chronic low back pain - Warm moist heat for 20 min three times a day - NSAIDS- 2. DDD (degenerative disc disease), lumbar - ICD9: 722.52, ICD10: M51.36 Chronic low back pain - Warm moist heat for 20 min three times a day - NSAIDS- - OXYCODONE-ACETAMINOPHEN 5 MG-325 MG TABLET Patient Instructions 1.) Please use a heating pad for 20 minutes at a time. 2.) May continue Percocet for severe pain; may ibuprofen or naproxen for moderate pain. 3.) Please follow up with [facility]. The patient indicates understanding of these issues and agrees with the plan. WU Zaman APRN.CNP 05/04/2018 11:00 AM Signed 1.) Please use a heating pad for 20 minutes at a time. 2.) May continue Percocet for severe pain; may ibuprofen or naproxen for moderate pain. 3.) Please follow up with [facility]. Referring Provider: NO HORTON [[id number]] Allergies As of Date: 05/04/2018 Noted Allergy Reaction MORPHINE 07/22/2017 9 - Itching Date Reviewed: 05/04/2018 Reviewed by: Darron De Leon (Jones) Robi - Fully Assessed Reason for Visit: Back Pain [12] Primary Visit Diagnosis:Chronic midline low back pain with bilateral sciatica [M54.41, M54.42, G89.29] Other Visit Diagnosis:DDD (degenerative disc disease), lumbar [M51.36] Order(s):oxyCODONE-acetaminophen (PERCOCET) 5-325 mg tabletTake 1 tablet by mouth four times daily as needed for Pain for up to 7 days.Disp: 28 tabletRfl: 0 Prescriptions as of 05/04/2018 Sig: RIVAROXABAN 20 MG TABLET Take 1 tablet by mouth daily * RISPERIDONE 0.5 MG TABLET Take 1 tablet by mouth twice * SERTRALINE 100 MG TABLET Take 1 tablet by mouth once d* LISINOPRIL 20 MG-HYDROCHLOROT* Take 1 tablet by mouth once d* OXYCODONE-ACETAMINOPHEN 5 MG-* Take 1 tablet by mouth four t* AUGMENTIN ORAL Take by mouth. LEVOTHYROXINE 50 MCG TABLET Take 1 tablet by mouth once d* Patient not taking: Reported on 04/23/2018 RIVAROXABAN 15 MG TABLET Take one tab by mouth twice d* Patient not taking: Reported on 12/15/2017 LISINOPRIL 10 MG-HYDROCHLOROT* Take 1 tablet by mouth once d* Medication notes this encounter RISPERIDONE 0.5 MG TABLET >> Svetlana Benites LPN 05/04/2018 10:30 AM >> SVETLANA BENITES Mon May 04, 2018 10:30 AM Problem List As Of Date 05/04/2018 Noted Resolved Anxiety [F41.9] Compression fracture of lumbar vertebra (HCC) [* Depression [F32.9] DDD (degenerative disc disease), lumbar [M51.36] H/O blood clots [Z86.718] Hypertension [I10] Scoliosis [M41.9] Other instructions from your clinician: 1.) Please use a heating pad for 20 minutes at a time. 2.) May continue Percocet for severe pain; may ibuprofen or naproxen for moderate pain. 3.) Please follow up with [facility]. Prescriptions ordered this encounter Disp Refills Start End OXYCODONE-ACETAMINOPHEN 5 MG-325 MG * 28 t* 0 05/04/2018 05/11/2018 Class: Print RX Route: ORAL Sig: Take 1 tablet by mouth four times daily as needed for Pain for up to 7 days. Disposition: Return in about 1 week (around 05/11/2018) for lower back pain with Dr. Horton. Follow-up and Disposition History Recorded Encounter Status:Closed by DARRON FAIRCHILD on 05/04/18 ED PROVIDER NOTE Observed: 05/02/2018 Status: F Source: [facility] 6:34 PM SYSTEM REPOSITORY [facility] EM[facility] DEPT eMERGENCY dEPARTMENT eNCOUnter Pt Name: Regina Pereira Birthdate 1950 Date of evaluation: 05/02/2018 Provider: MARVIN Conroy CNP CHIEF COMPLAINT Chief Complaint Patient presents with ? Back Pain pt seen here multiple times over the last few days. chronic. low back. I have evaluated this patient on my own, per my scope of practice with an attending available at all times. Patient was made aware of this and was offered to speak with the attending and declined. . HISTORY OF PRESENT ILLNESS (Location/Symptom, Timing/Onset, Context/Setting, Quality, Duration, Modifying Factors, Severity) Note limiting factors. HPI Regina Pereira is a 67 y.o. female who presents to the emergency department For complaints of back pain. Patient has been seen at this institution multiple times for complaints of back pain. This is chronic back pain she was released from pain management on March 23 secondary to a abnormal pill count. Since then she has come to the ER multiple times for complaints of needing Percocet. I did inform her that this is not what the emergency department is 4, she denies any fever, chills, IV drug use, immunocompromised status, incontinence of bowel or bladder or saddle anesthesia. No recent falls, trauma, car accident, photophobia, blurred vision, or neck pain. Nursing Notes were reviewed. REVIEW OF SYSTEMS (2+ for level 4; 10+ for level 5) Review of Systems Constitutional: Negative for chills, diaphoresis and fever. HENT: Negative for congestion, nosebleeds, sore throat and trouble swallowing. Eyes: Negative for visual disturbance. Respiratory: Negative for cough and shortness of breath. Cardiovascular: Negative for chest pain and palpitations. Gastrointestinal: Negative for abdominal pain, blood in stool, constipation, diarrhea, nausea, rectal pain and vomiting. Genitourinary: Negative for decreased urine volume, difficulty urinating, dysuria, flank pain, frequency, hematuria and urgency. Musculoskeletal: Positive for back pain. Negative for gait problem, myalgias, neck pain and neck stiffness. Skin: Negative for rash and wound. Neurological: Negative for dizziness, seizures, syncope, weakness and numbness. Psychiatric/Behavioral: Negative for sleep disturbance. The patient is not nervous/anxious. PAST MEDICAL HISTORY Past Medical History: Diagnosis Date ? Chronic back pain ? DDD (degenerative disc disease), lumbar ? Depression ? Hypertension ? Scoliosis ? Thyroid disease SURGICAL HISTORY Past Surgical History: Procedure Laterality Date ? SECTION ? HYSTERECTOMY CURRENT MEDICATIONS Previous Medications LIDOCAINE (LIDODERM) 5 % Place 1 patch onto the skin daily 12 hours on, 12 hours off. LISINOPRIL-HYDROCHLOROTHIAZIDE (PRINZIDE;ZESTORETIC) 10-12.5 MG PER TABLET Take 1 tablet by mouth NAPROXEN (NAPROSYN) 500 MG TABLET Take 1 tablet by mouth 2 times daily for 7 days PREDNISONE (DELTASONE) 10 MG TABLET 5 tablets PO Qday X 3, then 4 tablets PO Qday X 3, then 3 tablets PO Qday X 3, then 2 tablets PO Qday X 3, then 1 tablets PO Qday X 3, then stop. RISPERIDONE (RISPERDAL) 0.5 MG TABLET Take 1 tablet by mouth 2 times daily RIVAROXABAN (XARELTO) 15 MG TABS TABLET Take 1 tablet by mouth 2 times daily (with meals) SERTRALINE (ZOLOFT) 100 MG TABLET Take 1 tablet by mouth daily TIZANIDINE (ZANAFLEX) 4 MG TABLET Take 1 tablet by mouth 3 times daily ALLERGIES Patient has no known allergies. FAMILY HISTORY No family history on file. SOCIAL HISTORY Social History Social History ? Marital status: Spouse name: N/A ? Number of children: N/A ? Years of education: N/A Social History Main Topics ? Smoking status: Former Smoker ? Smokeless tobacco: Never Used ? Alcohol use No ? Drug use: No ? Sexual activity: Not on file Other Topics Concern ? Not on file Social History Narrative ? No narrative on file SCREENINGS PHYSICAL EXAM (5+ for level 4, 8+ for level 5) ED Triage Vitals [05/02/18 1930] BP Temp Temp Source Pulse Resp SpO2 Height Weight 136/89 98.7 ?F (37.1 ?C) Oral 98 18 100 % -- -- Physical Exam Constitutional: Vital signs are normal. She appears well-developed and well-nourished. Non-toxic appearance. She does not have a sickly appearance. No distress. HENT: Head: Normocephalic and atraumatic. Right Ear: Hearing and external ear normal. Left Ear: Hearing and external ear normal. Nose: Nose normal. Mouth/Throat: Oropharynx is clear and moist and mucous membranes are normal. Eyes: Conjunctivae, EOM and lids are normal. Neck: Trachea normal, normal range of motion and full passive range of motion without pain. No spinous process tenderness and no muscular tenderness present. No neck rigidity. Normal range of motion present. Cardiovascular: Normal rate, regular rhythm, normal heart sounds and normal pulses. Pulses: Radial pulses are 2+ on the right side, and 2+ on the left side. Dorsalis pedis pulses are 2+ on the right side, and 2+ on the left side. Pulmonary/Chest: Effort normal and breath sounds normal. Abdominal: Soft. Normal appearance and bowel sounds are normal. There is no hepatosplenomegaly. There is no tenderness. There is no rigidity, no rebound, no guarding, no CVA tenderness, no tenderness at McBurney's point and negative Amado's sign. Musculoskeletal: BACK: There is not thoracic or lumbar midline tenderness to palpation or step-offs. Paraspinal tenderness to palpation is present in the lower lumbar region. No overlying rashes. LE strength is 5/5. LE light touch is intact. LE DTR's are 2+ in the patellas and achilles. Straight leg test is not present on the bilateral. Neurological: She is alert. She has normal strength. No sensory deficit. Reflex Scores: Patellar reflexes are 2+ on the right side and 2+ on the left side. High sensitivity neuro exam was negative. No saddle anesthesia on exam. Patient was able to cross his legs without any difficulty. Plantarflexion of the great toe bilaterally has equal strength, sensation is intact distally, bilaterall to lower extremities. Skin: Skin is warm, dry and intact. No rash noted. She is not diaphoretic. Nursing note and vitals reviewed. DIAGNOSTIC RESULTS EKG (Per Emergency Physician): RADIOLOGY (Per Emergency Physician): Interpretation per the Radiologist below, if available at the time of this note: No results found. LABS: Labs Reviewed - No data to display All other labs were within normal range or not returned as of this dictation. EMERGENCY DEPARTMENT COURSE and DIFFERENTIAL DIAGNOSIS/MDM: Vitals: Vitals: 05/02/18 1930 BP: 136/89 Pulse: 98 Resp: 18 Temp: 98.7 ?F (37.1 ?C) TempSrc: Oral SpO2: 100% Medications oxyCODONE-acetaminophen (PERCOCET) 5-325 MG per tablet 1 tablet (not administered) MDM. Patient presents for again chronic back pain, she has had multiple visits to the ER recently this is all pain related. She was kicked out of pain management on March 23 due to inconsistent pill counts, since then she has come to the ER multiple times, sometimes even coming twice a day getting 1 Percocet and discharged home. She states she did call her primary care doctor has an open up this coming Friday but has no Percocet. She typically takes 5 Percocet a day. She also has physical therapy scheduled for this Friday. There is no new findings on her red flags of her subjective assessment there is no new findings on her physical exam for high sensitivity neuro exam. Again no clinical suspicion for cauda equina or epidural abscess. I do not feel that any imaging is needed she agrees with this plan because this is chronic pain in nature. I did give her 1 Percocet here. I will discharge patient with 6 Percocet I told her that she is to take 1 Percocet twice a day for the next 3 days which will get her to her next family practice appointment. Patient does agree with this I did again instruct her multiple times that this is not the reason to come to emerge department and she needs to get a hold of her primary care physician is Helder even any sooner appointment. Patient agrees and will be discharged. I did review the medical record and there was a phone call yesterday to the patient's primary care physician with a referral to comprehensive pain management. CONSULTS: None PROCEDURES: Unless otherwise noted below, none Procedures FINAL IMPRESSION 1. Chronic bilateral low back pain without sciatica DISPOSITION/PLAN DISPOSITION Decision To Discharge 05/02/2018 08:07:52 PM PATIENT REFERRED TO: No Horton MD [address] [facility] [address] [facility] [address] Schedule an appointment as soon as possible for a visit in 2 days DISCHARGE MEDICATIONS: New Prescriptions OXYCODONE-ACETAMINOPHEN (PERCOCET) 5-325 MG PER TABLET Take 1 tablet by mouth every 6 hours as needed for Pain for up to 7 days.. (Please note: Portions of this note were completed with a voice recognition program. Efforts were made to edit the dictations but occasionally words and phrases are mis-transcribed.) Form [id number] MARVIN Conroy CNP (electronically signed) Emergency Medicine Provider MARVIN Conroy CNP 05/02/182011 MARVIN Conroy CNP 05/02/182015 ED PROVIDER NOTE Observed: 05/02/2018 Status: F Source: [employer] 9:32 AM SYSTEM REPOSITORY [facility] EM[facility] DEPT eMERGENCY dEPARTMENT eNCOUnter Pt Name: Regina Pereira Birthdate 1950 Date of evaluation: 05/02/2018 Provider: LANA Kumari CHIEF COMPLAINT Chief Complaint Patient presents with ? Back Pain chronic. pt was dropped by pain management 2 months ago for missed pill count, and states she has an appt with her pcp for a new pain management referral. HISTORY OF PRESENT ILLNESS (Location/Symptom, Timing/Onset, Context/Setting, Quality, Duration, Modifying Factors, Severity) Note limiting factors. HPI I have seen this patient I have evaluated this patient on my own, per my scope of practice with an attending available for consultation Regina Pereira is a 67 y.o. female who presents to the emergency department For chief complaint of back pain that has been going on for a long time and she states that she has seen 3 surgeons regarding her back pain within the past year however they declined doing surgery on her and has referred her to pain management in which she has been following up however was dismissed due to pill discrepancy in March. She has a follow-up appointment with her primary care physician Friday for referral to a chronic pain management. She states her pain is 9/10 bilateral sides of her back. She denies any fever, chills, nausea, vomiting, diarrhea, chest pain, shortness of breath. Patient denies having any paresthesias or weakness within her extremity. Denies any urinary complaints. Denies any bladder or bowel incontinence. Denies any saddle anesthesia. There has been no changes in her physical examination in comparison to before per the patient. Patient states that she did receive a prescription of Percocet within the past couple days however is taking them all. No other complaints and the patient this time REVIEW OF SYSTEMS (2+ for level 4; 10+ for level 5) Review of Systems Constitutional: Negative for chills, fatigue and fever. HENT: Negative for congestion, sinus pain, sore throat and voice change. Eyes: Negative. Respiratory: Negative for cough, shortness of breath and wheezing. Cardiovascular: Negative for chest pain, palpitations and leg swelling. Gastrointestinal: Negative for abdominal distention, abdominal pain, blood in stool, constipation, diarrhea, nausea and vomiting. Endocrine: Negative. Genitourinary: Negative for dysuria, frequency and hematuria. Musculoskeletal: Positive for back pain. Negative for arthralgias and neck stiffness. Skin: Negative for color change, pallor, rash and wound. Neurological: Negative for dizziness, weakness, light-headedness, numbness and headaches. Psychiatric/Behavioral: Negative. PAST MEDICAL HISTORY Past Medical History: Diagnosis Date ? Chronic back pain ? DDD (degenerative disc disease), lumbar ? Depression ? Hypertension ? Scoliosis ? Thyroid disease SURGICAL HISTORY Past Surgical History: Procedure Laterality Date ? SECTION ? HYSTERECTOMY CURRENT MEDICATIONS Discharge Medication List as of 05/02/2018 10:12 AM CONTINUE these medications which have NOT CHANGED Details predniSONE (DELTASONE) 10 MG tablet 5 tablets PO Qday X 3, then 4 tablets PO Qday X 3, then 3 tablets PO Qday X 3, then 2 tablets PO Qday X 3, then 1 tablets PO Qday X 3, then stop., Disp-45 tablet, R-0Print lisinopril-hydrochlorothiazide (PRINZIDE;ZESTORETIC) 10-12.5 MG per tablet Take 1 tablet by mouthHistorical Med risperiDONE (RISPERDAL) 0.5 MG tablet Take 1 tablet by mouth 2 times daily, Disp-28 tablet, R-0Print sertraline (ZOLOFT) 100 MG tablet Take 1 tablet by mouth daily, Disp-14 tablet, R-0Print rivaroxaban (XARELTO) 15 MG TABS tablet Take 1 tablet by mouth 2 times daily (with meals), Disp-42 tablet, R-0Print oxyCODONE-acetaminophen (PERCOCET) 5-325 MG per tablet Take 1-2 tablets by mouth every 4 hours as needed for Pain for up to 7 days.., Disp- 15 tablet, R-0Print tiZANidine (ZANAFLEX) 4 MG tablet Take 1 tablet by mouth 3 times daily, Disp-21 tablet, R-0Print lidocaine (LIDODERM) 5 % Place 1 patch onto the skin daily 12 hours on, 12 hours off., Disp-30 patch, R-0Print ALLERGIES Patient has no known allergies. FAMILY HISTORY No family history on file. SOCIAL HISTORY Social History Social History ? Marital status: Spouse name: N/A ? Number of children: N/A ? Years of education: N/A Social History Main Topics ? Smoking status: Former Smoker ? Smokeless tobacco: Never Used ? Alcohol use No ? Drug use: No ? Sexual activity: Not on file Other Topics Concern ? Not on file Social History Narrative ? No narrative on file SCREENINGS PHYSICAL EXAM (up to 7 for level 4, 8 or more for level 5) ED Triage Vitals [05/02/18 0940] BP Temp Temp Source Pulse Resp SpO2 Height Weight 130/83 98.7 ?F (37.1 ?C) Oral 88 18 100 % 5' 9 (1.753 m) 237 lb (107.5 kg) Physical Exam Constitutional: She is oriented to person, place, and time. She appears well-developed and well-nourished. No distress. HENT: Head: Normocephalic. Mouth/Throat: No oropharyngeal exudate. Eyes: Conjunctivae and EOM are normal. Right eye exhibits no discharge. Left eye exhibits no discharge. No scleral icterus. Neck: Neck supple. Cardiovascular: Normal rate, regular rhythm and normal heart sounds. Exam reveals no gallop and no friction rub. No murmur heard. Pulmonary/Chest: Effort normal and breath sounds normal. No stridor. No respiratory distress. She has no wheezes. She has no rales. She exhibits no tenderness. Abdominal: Soft. Bowel sounds are normal. She exhibits no distension. There is no tenderness. There is no rebound and no guarding. Musculoskeletal: Normal range of motion. She exhibits tenderness. She exhibits no edema. Paraspinal tenderness lumbar area There is no midline tenderness to the cervical, thoracic, lumbar spine, there are no step-offs or deformities appreciated Neurological: She is alert and oriented to person, place, and time. High Sensitivity Neuro Exam Spine L1 through S5 grossly intact without any neuro deficits. Patient has normal sensation in thigh denying saddle anesthesia. Normal bladder and bowel control without retention. Able to ambulate with normal gate and no difficulty No distal parestesia Able able to the bed without any difficulty Skin: Skin is warm and dry. No rash noted. She is not diaphoretic. No erythema. No pallor. Psychiatric: She has a normal mood and affect. Her behavior is normal. Judgment and thought content normal. DIAGNOSTIC RESULTS EKG (Per Emergency Physician): Not clinically indicated Interpretation per the Radiologist below, if available at the time of this note: No results found. LABS: Labs Reviewed - No data to display EMERGENCY DEPARTMENT COURSE and DIFFERENTIAL DIAGNOSIS/MDM: Vitals: Vitals: 05/02/18 0940 BP: 130/83 Pulse: 88 Resp: 18 Temp: 98.7 ?F (37.1 ?C) TempSrc: Oral SpO2: 100% Weight: 107.5 kg (237 lb) Height: 5' 9 (1.753 m) Medications naproxen (NAPROSYN) tablet 500 mg (500 mg Oral Not Given 05/02/18 1011) Pictures were taken and showed the patient is able stand however wheelchair into the bed without any difficulty while in the bed she is able to cross her legs without any difficulty. MDM. Nursing Notes were reviewed. CC reviewed, please see HPI for patients CC for my interview Differentials include: - Chronic back pain, muscular skeletal pain, bone fracture, drug-seeking behavior At this time , the information and evidence obtained from the HPI and physical examination does not warrant any other testing including laboratory or imaging. Previous Medical charts and nurses note have been reviewed. Available Labs in the ED were reviewed, abnormalities include: Not clinically indicated Please see images performed above and radiologist interpretation. Please see medications given in the ED above. Based on all information given at this time, patient has been seen here in the emergency department multiple times for her back pain and does have a significant narcotic history. Patient has recently had an x-ray of her back within this month which do not show any major changes. Patient's complaints have not changed recently regarding her back pain. She does not have any red flags for spinal compression noted she show any physical exam changes that increased with clinical suspicion of spinal cord compression. She is able to stand bedside without any difficulty. Her high sensitivity neuro examination for back pain was intact without having any paresthesias appropriate muscle strength able to cross her legs bring her knees to her chest without any difficulty. She does not appear to be any distress at this time she does appear to have drug-seeking behavior based on this information. She does have pain paraspinal lumbar area. She will follow with her primary care physician next few days and give her prescription for naproxen which she was unhappy with. She will be discharged in stable condition with stable vital signs with a low clinical suspicion of there being a urinary tract infection, pyelonephritis or kidney stone, spinal cord compression aortic aneurysm dissection or any other life-threatening process at this time. Please see below for medications given at discharge. Please see below for patient follow up appointment. Patient was instructed to take medication as prescribed. Patient was also instructed to return to the emergency department if symptoms worsen, or new symptoms develop and these symptoms were discussed with the patient such as numbness to name a few. Comment: Please note this report has been produced using speech recognition software and may contain errors related to that system including errors in grammar, punctuation, and spelling, as well as words and phrases that may be inappropriate. ?If there are any questions or concerns please feel free to contact the dictating provider for clarification. REVAL: Reevaluation the patient upon Discharge showed no new physical exam finding, symptomatic complaints, stable vital signs. CRITICAL CARE TIME Total Critical Care time was 0 minutes, excluding separately reportable procedures. There was a high probability of clinically significant/life threatening deterioration in the patient's condition which required my urgent intervention. CONSULTS: None PROCEDURES: Unless otherwise noted below, none Procedures FINAL IMPRESSION 1. Chronic bilateral low back pain without sciatica 2. Drug-seeking behavior DISPOSITION/PLAN DISPOSITION Decision To Discharge 05/02/2018 10:09:02 AM PATIENT REFERRED TO: No Horton MD [facility] [facility] [address] [facility] [address] Schedule an appointment as soon as possible for a visit today DISCHARGE MEDICATIONS: Discharge Medication List as of 05/02/2018 10:12 AM START taking these medications Details naproxen (NAPROSYN) 500 MG tablet Take 1 tablet by mouth 2 times daily for 7 days, Disp-14 tablet, R-0Print (Please note: Portions of this note were completed with a voice recognition program. Efforts were made to edit the dictations but occasionally words and phrases are mis-transcribed.) Form [id number] LANA Kumari (electronically signed) Emergency Medicine Provider LANA Kumari 05/02/18 1013 ED PROVIDER NOTE Observed: 05/01/2018 Status: F Source: [employer] 10:28 PM SYSTEM REPOSITORY Emergency Department Encounter [facility] EMERGENCY DEPT Patient: Regina Pereira : 1950 Date of Evaluation: 05/01/2018 ED DOMONIQUE Provider: MARVIN Javier CNP Chief Complaint Back pain Chief Complaint Patient presents with ? Back Pain Lower - chronic but worse today EKUK Regina Pereira is a 67 y.o. female who presents to the emergency department With a complaint of back pain that became worse today. She reported that she was recently kicked out of pain management. Patient denies any bowel or bladder dysfunction. Patient is ambulatory to the emergency room. She denies any chest pain or shortness of breath abdominal pain nausea vomiting diarrhea constipation. Patient denies any other injury or illness at this time. Reports that she does not smoke or drink. Patient denies any fever chills or rashes or any other injury or illness at this time. All nursing documentation and vitals were reviewed and I agree ROS: Review of Systems GENERAL: Denies weight change, fatigue, weakness, fever HEENT: Denies trauma, headache, dizziness, visual change, ear pain, hearing change, tinnitus, rhinorrhea CARDIAC: Denies hypertension, murmur, angina, palpations, dyspnea on exertion, edema RESPIRATORY: Denies shortness of breath, wheezing, cough, sputum, asthma, COPD GI: Denies nausea, vomiting, change in bowels, abdominal pain URINARY: Denies changes in frequency/urgency, hematuria, incontinence, flank pain MUSCULOSKELETAL: Denies weakness, pain, change in ROM, redness, swelling complains of low back pain NEURO: Denies loss in sensation, tingling, tremors, weakness, fainting or seizures ENDO: Denies heat/cold intolerance, polyuria, polydipsia, or swelling around neck PSYCH: Denies changes in mood, anxiety, depression, tension, memory Past History Past Medical History: Diagnosis Date ? Chronic back pain ? DDD (degenerative disc disease), lumbar ? Depression ? Hypertension ? Scoliosis ? Thyroid disease Past Surgical History: Procedure Laterality Date ? SECTION ? HYSTERECTOMY Social History Social History ? Marital status: Spouse name: N/A ? Number of children: N/A ? Years of education: N/A Social History Main Topics ? Smoking status: Former Smoker ? Smokeless tobacco: Never Used ? Alcohol use No ? Drug use: No ? Sexual activity: Not on file Other Topics Concern ? Not on file Social History Narrative ? No narrative on file Medications/Allergies Previous Medications LIDOCAINE (LIDODERM) 5 % Place 1 patch onto the skin daily 12 hours on, 12 hours off. LISINOPRIL-HYDROCHLOROTHIAZIDE (PRINZIDE;ZESTORETIC) 10-12.5 MG PER TABLET Take 1 tablet by mouth OXYCODONE-ACETAMINOPHEN (PERCOCET) 5-325 MG PER TABLET Take 1-2 tablets by mouth every 4 hours as needed for Pain for up to 7 days.. PREDNISONE (DELTASONE) 10 MG TABLET 5 tablets PO Qday X 3, then 4 tablets PO Qday X 3, then 3 tablets PO Qday X 3, then 2 tablets PO Qday X 3, then 1 tablets PO Qday X 3, then stop. RISPERIDONE (RISPERDAL) 0.5 MG TABLET Take 1 tablet by mouth 2 times daily RIVAROXABAN (XARELTO) 15 MG TABS TABLET Take 1 tablet by mouth 2 times daily (with meals) SERTRALINE (ZOLOFT) 100 MG TABLET Take 1 tablet by mouth daily TIZANIDINE (ZANAFLEX) 4 MG TABLET Take 1 tablet by mouth 3 times daily Allergies Allergen Reactions ? Morphine Itching Physical Exam ED Triage Vitals [05/01/18 2244] BP Temp Temp Source Pulse Resp SpO2 Height Weight 121/71 98.2 ?F (36.8 ?C) Oral 80 16 100 % 5' 9 (1.753 m) 237 lb (107.5 kg) Physical Exam Constitutional: Well developed, well nourished, no acute distress, non-toxic appearance Eyes: PERRL, conjunctiva normal HENT: Atraumatic, external ears normal, nose normal, oropharynx moist, no pharyngeal exudates. Neck- normal range of motion, no tenderness, supple Respiratory: No respiratory distress, normal breath sounds, no rales, no wheezing Cardiovascular: Normal rate, normal rhythm, no murmurs, no gallops, no rubs GI: Soft, nondistended, normal bowel sounds, nontender, no organomegaly, no mass, no rebound, no guarding : No costovertebral angle tenderness Musculoskeletal: No edema, no tenderness, no deformities. Back- slight lower lumbar tenderness neurovascular intact Integument: Well hydrated, no rash Lymphatic: No lymphadenopathy noted Neurologic: Alert & oriented x 3, CN 2-12 normal, normal motor function, normal sensory function, no focal deficits noted Psychiatric: Speech and behavior appropriate Vitals as documented Diagnostics Labs: No results found for this visit on 05/01/18. Radiographs: No results found. Procedures: none ED Course and MDM In brief, Regina Pereira is a 67 y.o. female who presented to the emergency department For evaluation treatment of her back pain. Patient was in the emergency room earlier today for her chronic back pain. Upon review of the patient's OARRS report the patient has had numerous visits to the emergency room for Percocet prescriptions. Patient was discharged from the pain management clinic due to the fact that she missed a pill count back in March of this year. She was at that time given a half supply of her normal 140 tablets per month Percocet and informed to locate a new pain management provider. Patient was informed of that she would not be otic get any further narcotic prescriptions through the emergency room she must find a new pain management doctor immediately she was referred to follow up with her PCP in the a.m. for possible referral to a new pain management physician as soon as possible. I informed the patient and spent quite a considerable amount of time explaining to the patient that these medications that she had been on in pain management are opiates and she would start the withdrawal process if she does not have the Percocets on a daily basis. All patient's questions and concerns were addressed she was in agreement with this plan of care she verbalized understanding of all written and verbal instructions. Patient reported that she will call her PCP in the a.m. for further medical management of her pain and discomfort. Patient was written a prescription for Lidoderm patch as well as a muscle relaxer she stated that she was unable to afford those 2 prescriptions. Patient will be discharged stable blood pressures 121/71 pulse is 80 her temperature is 98.2 respirations are 16 and she is satting 100 percent on room air patient was discharged condition stable ED Medication Orders Start Ordered Status Ordering Provider 05/02/18 0015 05/02/18 0008 oxyCODONE-acetaminophen (PERCOCET) 5-325 MG per tablet 1 tablet ONCE Acknowledged KJ MARTINEZ Final Impression 1. Acute exacerbation of chronic low back pain DISPOSITION Decision To Discharge 05/02/2018 12:10:08 AM I have evaluated treated examined this patient on my own per my scope of practice with a ED attending available for consultation (Please note that portions of this note may have been completed with a voice recognition program. Efforts were made to edit the dictations but occasionally words are mis-transcribed.) MARVIN Javier CNP [facility] [employer] MARVIN Javier CNP 05/02/18 0025 MARVIN Javier CNP 05/02/18 0213 ED PROVIDER NOTE Observed: 05/01/2018 Status: F Source: [employer] 2:14 PM SYSTEM REPOSITORY Emergency Department Encounter [facility] Patient: Regina Pereira : 1950 Date of Evaluation: 05/01/2018 ED Supervising Physician: Michael Gilbert MD I independently examined and evaluated Regina Pereira. In brief, Regina Pereira is a 67 y.o. female that presents to the emergency department complaining of chronic back pain, she was just seen 2 hours prior to this visit here and discharged from the emergency department, she is had 9 visits this month for the same complaint. She was seen yesterday as well. Focused exam: Awake alert and oriented, normal extraocular motion, no pallor to skin Brief ED course/MDM: Patient has chronic pain I do have some concern for drug-seeking behavior in which she has been diagnosed with before. I did explain to the patient the importance of her following up with PCP or pain specialist as we will not be able to continually treated her in the emergency department with narcotics. She voiced understanding. She continually asked for pain medication and said that the Percocet she got earlier today did not help. Diagnosis/Plan: Chronic pain All diagnostic, treatment, and disposition decisions were made by myself in conjunction with the DOMONIQUE/Resident. For all further details of the patient's emergency department visit, please see their documentation. Comment: Please note this report has been produced using speech recognition software and may contain errors related to that system including errors in grammar, punctuation, and spelling, as well as words and phrases that may be inappropriate. If there are any questions or concerns please feel free to contact the dictating provider for clarification. Michael Gilbert MD [facility] [employer] Michael Gilbert MD 05/01/18 1530 ED PROVIDER NOTE Observed: 05/01/2018 Status: F Source: [employer] 2:14 PM SYSTEM REPOSITORY Emergency Department Encounter [facility] Patient: Regina Pereira : 1950 Date of Evaluation: 05/01/2018 ED DOMONIQUE Provider: MARVIN RIVERA CNP ED care was supervised by Dr. Gilbert who independently examined and evaluated the patient. Please see their attestation note for further details. Chief Complaint Chief Complaint Patient presents with ? Back Pain 3 days EKUK Regina Pereira is a 67 y.o. female who presents to the emergency department for complaints of back pain. States that she has a history of chronic back pain related to a history of DJD and scoliosis. Patient states that she was in pain management but was dismissed after she states there was a miscommunication about a random pill count. Patient states that she has been attempting to get into a different pain management doctor. States that she has also been speaking with her primary care doctor. States movement seems to exacerbate. Denies factors that seem to alleviate. In further speaking with patient it is determined that she was just seen here 2 hours ago for the same complaints. That time she was given 2 Percocets here in the emergency department. She states that it did not help. She is asking for more pain medicines. She denies any abdominal pain. She denies symptoms. She denies any unilateral weakness, IV drug usage or fever and chills or difficulty ambulating ROS: Review of Systems GENERAL: Denies weight change, fatigue, weakness, fever HEENT: Denies trauma, headache, dizziness, visual change, ear pain, hearing change, tinnitus, rhinorrhea CARDIAC: Denies hypertension, murmur, angina, palpations, dyspnea on exertion, edema RESPIRATORY: Denies shortness of breath, wheezing, cough, sputum, asthma, COPD GI: Denies nausea, vomiting, change in bowels, abdominal pain URINARY: Denies changes in frequency/urgency, hematuria, incontinence, flank pain MUSCULOSKELETAL: +back pain. Denies weakness, change in ROM, redness, swelling NEURO: Denies loss in sensation, tingling, tremors, weakness, fainting or seizures ENDO: Denies heat/cold intolerance, polyuria, polydipsia, or swelling around neck PSYCH: Denies changes in mood, anxiety, depression, tension, memory Past History Past Medical History: Diagnosis Date ? Chronic back pain ? DDD (degenerative disc disease), lumbar ? Depression ? Hypertension ? Scoliosis ? Thyroid disease Past Surgical History: Procedure Laterality Date ? SECTION ? HYSTERECTOMY Social History Social History ? Marital status: Spouse name: N/A ? Number of children: N/A ? Years of education: N/A Social History Main Topics ? Smoking status: Former Smoker ? Smokeless tobacco: Never Used ? Alcohol use No ? Drug use: No ? Sexual activity: Not on file Other Topics Concern ? Not on file Social History Narrative ? No narrative on file Medications/Allergies Discharge Medication List as of 05/01/2018 2:37 PM CONTINUE these medications which have NOT CHANGED Details oxyCODONE-acetaminophen (PERCOCET) 5-325 MG per tablet Take 1-2 tablets by mouth every 4 hours as needed for Pain for up to 7 days.., Disp- 15 tablet, R-0Print predniSONE (DELTASONE) 10 MG tablet 5 tablets PO Qday X 3, then 4 tablets PO Qday X 3, then 3 tablets PO Qday X 3, then 2 tablets PO Qday X 3, then 1 tablets PO Qday X 3, then stop., Disp-45 tablet, R-0Print tiZANidine (ZANAFLEX) 4 MG tablet Take 1 tablet by mouth 3 times daily, Disp-21 tablet, R-0Print lidocaine (LIDODERM) 5 % Place 1 patch onto the skin daily 12 hours on, 12 hours off., Disp-30 patch, R-0Print lisinopril-hydrochlorothiazide (PRINZIDE;ZESTORETIC) 10-12.5 MG per tablet Take 1 tablet by mouthHistorical Med risperiDONE (RISPERDAL) 0.5 MG tablet Take 1 tablet by mouth 2 times daily, Disp-28 tablet, R-0Print sertraline (ZOLOFT) 100 MG tablet Take 1 tablet by mouth daily, Disp-14 tablet, R-0Print rivaroxaban (XARELTO) 15 MG TABS tablet Take 1 tablet by mouth 2 times daily (with meals), Disp-42 tablet, R-0Print Allergies Allergen Reactions ? Morphine Itching Physical Exam ED Triage Vitals [05/01/18 1429] BP Temp Temp src Pulse Resp SpO2 Height Weight 111/80 98.1 ?F (36.7 ?C) -- 93 16 95 % 5' 9 (1.753 m) 237 lb (107.5 kg) Physical Exam GENERAL: The patient appears nourished and normally developed. Vital signs as documented. EYES: Head exam is unremarkable. No scleral icterus or orbital trauma noted. HEENT: Mucous membranes moist. Nares patent without copious rhinorrhea. No enlarged lymphadenopathy. LUNGS: Lungs are clear to auscultation, without any respiratory distress. CARDIAC: Rhythm is regular. No dysrythmias or murmurs. ABDOMEN: Nontender with no obvious masses, and no peritoneal signs. EXTREMITIES: Patient has diffuse paraspinal tightness and tenderness upon palpation. Remaining lower extremity is Nonedematous, with no obvious deformities. SKIN: Good color, with no significant rashes. No pallor. NEURO: Patient is cognitive and alert and oriented x3. Conversive. Cranial nerves II-XII are grossly intact. Patient appears to have normal 5 out of 5 strength. No obvious sensory deficits. DTRs are preserved and equal bilaterally. Patient moves without difficulty, and does not display any ataxia or cerebellar deficits. Diagnostics Labs: No results found for this visit on 05/01/18. Radiographs: No results found. EKG: All EKG's are interpreted by the Emergency Department Physician in the absence of a record center coordinator.? Please see their note for interpretation of EKG. ED Course and MDM In brief, Regina Pereira is a 67 y.o. female who presented to the emergency department For complaints of back pain. Please see history of present illness, review of systems and physical examination for further details. This patient was seen in collaboration with Dr. Gilbert. 67 year old female presenting with complaints of chronic back pain. She states she was recently kicked out of pain management. She was just here 2 hours ago. I did discuss with patient that from a legal standpoint we are unable to continue to address her chronic pain problems. Patient is insistent and continuously asking if I can give her something stronger here or) prescription. Discussed with patient that she needs to follow-up with her PCP or get back into pain management. I estimate there is LOW risk for (including but not limited to) RAPIDLY EXPANDING OR RUPTURED AAA, AORTIC DISSECTION, CAUDA EQUINA SYNDROME, or EPIDURAL MASS LESION thus I consider the discharge disposition reasonable. Regina Pereira (or their surrogate) and I have discussed the diagnosis and risks, and we agree with discharging home with close follow-up. We also discussed returning to the Emergency Department immediately if new or worsening symptoms occur. We have discussed the symptoms which are most concerning that necessitate immediate return. ED Medication Orders None Final Impression 1. Acute exacerbation of chronic low back pain DISPOSITION Decision To Discharge 05/01/2018 02:36:19 PM (Please note that portions of this note may have been completed with a voice recognition program. Efforts were made to edit the dictations but occasionally words are mis-transcribed.) MARVIN RIVERA CNP [employer] MARVIN Rivera CNP 05/01/181939 ED PROVIDER NOTE Observed: 05/01/2018 Status: F Source: [employer] 11:34 AM SYSTEM REPOSITORY Emergency Department Encounter [facility] Patient: Regina Pereira : 1950 Date of Evaluation: 05/01/2018 ED DOMONIQUE Provider: MARVIN Forman CNP Independent Note Chief Complaint Chief Complaint Patient presents with ? Back Pain EK[facility] Regina Pereira is a 67 y.o. female who presents to the emergency department for lower back pain and pain on my tailbone. The patient states that she has a history of degenerative disease, scoliosis and compression fractures. She states that she had follow-up with spinal doctors and they told her that she was not a candidate for surgery. She states that she was dropped by pain management 2 months ago due to a discrepancy that she was unaware of. She states that she has an appointment with her primary doctor on Friday, for another referral to a different pain management office. She has tried taking Tylenol and NSAIDs without relief. Percocet provides pain relief. She denies any reinjury. No new numbness, tingling or weakness. Patient reports a history of chronic leg weakness. No loss of bowel or bladder control. No fever or chills. No history of IV drug use.The patient has no other medical complaints. Review of systems otherwise negative. ROS: Review of Systems At least 10 systems reviewed and otherwise acutely negative except as in the EKUK. Past History Past Medical History: Diagnosis Date ? Chronic back pain ? DDD (degenerative disc disease), lumbar ? Depression ? Hypertension ? Scoliosis ? Thyroid disease Past Surgical History: Procedure Laterality Date ? SECTION ? HYSTERECTOMY Social History Social History ? Marital status: Spouse name: N/A ? Number of children: N/A ? Years of education: N/A Social History Main Topics ? Smoking status: Former Smoker ? Smokeless tobacco: Never Used ? Alcohol use No ? Drug use: No ? Sexual activity: Not on file Other Topics Concern ? Not on file Social History Narrative ? No narrative on file Medications/Allergies Discharge Medication List as of 05/01/2018 1:46 PM CONTINUE these medications which have NOT CHANGED Details oxyCODONE-acetaminophen (PERCOCET) 5-325 MG per tablet Take 1-2 tablets by mouth every 4 hours as needed for Pain for up to 7 days.., Disp- 15 tablet, R-0Print predniSONE (DELTASONE) 10 MG tablet 5 tablets PO Qday X 3, then 4 tablets PO Qday X 3, then 3 tablets PO Qday X 3, then 2 tablets PO Qday X 3, then 1 tablets PO Qday X 3, then stop., Disp-45 tablet, R-0Print tiZANidine (ZANAFLEX) 4 MG tablet Take 1 tablet by mouth 3 times daily, Disp-21 tablet, R-0Print lidocaine (LIDODERM) 5 % Place 1 patch onto the skin daily 12 hours on, 12 hours off., Disp-30 patch, R-0Print lisinopril-hydrochlorothiazide (PRINZIDE;ZESTORETIC) 10-12.5 MG per tablet Take 1 tablet by mouthHistorical Med risperiDONE (RISPERDAL) 0.5 MG tablet Take 1 tablet by mouth 2 times daily, Disp-28 tablet, R-0Print sertraline (ZOLOFT) 100 MG tablet Take 1 tablet by mouth daily, Disp-14 tablet, R-0Print rivaroxaban (XARELTO) 15 MG TABS tablet Take 1 tablet by mouth 2 times daily (with meals), Disp-42 tablet, R-0Print Allergies Allergen Reactions ? Morphine Itching Physical Exam ED Triage Vitals [05/01/18 1202] BP Temp Temp Source Pulse Resp SpO2 Height Weight 118/70 98.8 ?F (37.1 ?C) Oral 82 18 96 % -- -- Physical Exam General: No apparent distress, answers questions appropriately HEENT: Normocephalic atraumatic, sclera white. Nose patent bilaterally. Mucous membranes pink and moist. Neck: Supple. Trachea midline. Midline spinal tenderness. No evidence of spinal trauma or infection. Lungs: Clear to auscultation bilaterally. No use of accessory muscles. Heart: Regular rate and rhythm. No obvious murmur. Abdomen: Soft, nontender Back: No midline spinal tenderness. No evidence of spinal trauma or infection. No skin changes or evidence of abscess. Extremities: No clubbing, cyanosis or edema. Equal strength and sensation. Neurovascular intact. Neuro: No motor/sensory or focal deficits. Patient is ambulatory. Psych: Flat affect. Cooperative. Skin: Normal temp. No acute rash. Diagnostics Labs: No results found for this visit on 05/01/18. Radiographs: No results found. ED Course and MDM The patient is nontoxic in appearance, vital signs are within normal limits and she is ambulatory without difficulty. She describes exacerbation of chronic symptoms. Patient was requesting 2 Percocet tablets in the ER for pain. She was ordered 1 tablet in the ED. An OARRS report was reviewed, revealing multiple prescriptions from multiple providers. She appears to have had an active prescription for percocet for 7 days, prescribed 04/29. When asked about this, she stated that she took 2 tablets every 4 hours instead of 1 tablet. The patient was advised that she will not be receiving a prescription for narcotics. Recommend rest, ice or heat and follow up with her primary doctor as scheduled on Friday. She may take Tylenol as needed for pain. At this point, the patient will be discharged from the emergency department. She is in stable condition and in agreement with treatment plan. Recommend follow-up with a primary medical doctor in 3-5 days. Patient provided instructions to return to the emergency department with any new concerns or if condition worsens. Addendum: Patient LEFT before receiving her discharge paperwork ED Medication Orders Start Ordered Status Ordering Provider 05/01/18 1245 05/01/18 1233 oxyCODONE-acetaminophen (PERCOCET) 5-325 MG per tablet 1 tablet ONCE Last OCT action: Given - by FRANCINE FARMER on 05/01/18 at 1244 JOCELYNN CANCINO Final Impression 1. Acute exacerbation of chronic low back pain DISPOSITION Decision To Discharge 05/01/2018 01:05:31 PM (Please note that portions of this note may have been completed with a voice recognition program. Efforts were made to edit the dictations but occasionally words are mis-transcribed.) Jocelynn Cancino, [employer] - 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 [employer] Jocelynn Cancino MARVIN - 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 05/01/18 1646 CNPN Observed: 05/01/2018 Status: COMPLETED Source: [facility] 12:00 AM CLINIC OTHER CAMPUS REPOSITORY Telephone ([facility]) REGINA PEREIRA ([id number]) 1950 F Date Time Provider Department 05/01/18 NO HORTON [facility] During your visit today, we recorded the following information about you: Mert Everett 05/07/2018 1:14 PM Addendum FAXED REFERRAL TO [facility] TO [phone] PER PTS REQUEST. Mert Everett 05/01/2018 09:46:12 Mert Everett 05/11/2018 3:24 PM Signed Pt states she has not heard from [facility] and requests the referral be faxed to [facility] at fax # [phone]. Referral, demographics, last 2 office notes, and insurance card faxed. Mert Everett 05/11/2018 15:23:40 Allergies As of Date: 05/01/2018 Noted Allergy Reaction MORPHINE 07/22/2017 9 - Itching Date Reviewed: 04/23/2018 Reviewed by: Christie Garza - Fully Assessed Reason for Visit: Referral (pain management) [Other] Prescriptions as of 05/01/2018 Sig: RIVAROXABAN 20 MG TABLET Take 1 tablet by mouth daily * AUGMENTIN ORAL Take by mouth. RISPERIDONE 0.5 MG TABLET Take 1 tablet by mouth twice * SERTRALINE 100 MG TABLET Take 1 tablet by mouth once d* LEVOTHYROXINE 50 MCG TABLET Take 1 tablet by mouth once d* Patient not taking: Reported on 04/23/2018 RIVAROXABAN 15 MG TABLET Take one tab by mouth twice d* Patient not taking: Reported on 12/15/2017 X LISINOPRIL 20 MG-HYDROCHLOROT* Take 1 tablet by mouth once d* LISINOPRIL 10 MG-HYDROCHLOROT* Take 1 tablet by mouth once d* Problem List As Of Date 05/01/2018 Noted Resolved Anxiety [F41.9] Compression fracture of lumbar vertebra (HCC) [* Depression [F32.9] DDD (degenerative disc disease), lumbar [M51.36] H/O blood clots [Z86.718] Hypertension [I10] Scoliosis [M41.9] Encounter Status:Closed by MERT EVERETT on 05/01/18 ED PROVIDER NOTE Observed: 04/29/2018 Status: F Source: [employer] 6:08 PM SYSTEM REPOSITORY [facility] eMERGENCY dEPARTMENT eNCOUnter Pt Name: Regina Pereira Birthdate 1950 Date of evaluation: 04/29/2018 Provider: ALEJANDRO BEAR MD CHIEF COMPLAINT Chief Complaint Patient presents with ? Back Pain Pt already seen once today but was only able to get Tylenol since she didn't have a ride home. now here and pt wants stronger pain medication. HISTORY OF PRESENT ILLNESS (Location/Symptom, Timing/Onset, Context/Setting, Quality, Duration, Modifying Factors, Severity) Note limiting factors. Rgeina Pereira is a 67 y.o. female who presents to the emergency department Complaining of lumbar pain. The patient has a chronic history of back problems with degenerative disc disease and compression fractures she seen at least 3 separate surgeons both orthopedics and neurosurgery for consultations and she does not have a surgical case. She actually saw an orthopedist spine physician yesterday. She has been dropped by her pain management practice month or so ago because apparently she missed a phone call. She was here earlier today because of pain was treated with Tylenol and did not have any other aggressive analgesics as she did not have anybody here to drive her home. The patient denies any bowel or bladder incontinence no paraparesis no paraplegia no saddle anesthesia no abdominal pain no urinary symptoms no fever no flank pain. No radiculopathy. Nursing Notes were reviewed. REVIEW OF SYSTEMS (2+ for level 4; 10+ for level 5) REVIEW OF SYSTEMS: Positives and negatives noted above otherwise all else negative 10 reviewed PAST MEDICAL HISTORY Past Medical History: Diagnosis Date ? Chronic back pain ? DDD (degenerative disc disease), lumbar ? Depression ? Hypertension ? Scoliosis ? Thyroid disease SURGICAL HISTORY Past Surgical History: Procedure Laterality Date ? SECTION ? HYSTERECTOMY CURRENT MEDICATIONS Previous Medications LIDOCAINE (LIDODERM) 5 % Place 1 patch onto the skin daily 12 hours on, 12 hours off. LISINOPRIL-HYDROCHLOROTHIAZIDE (PRINZIDE;ZESTORETIC) 10-12.5 MG PER TABLET Take 1 tablet by mouth PREDNISONE (DELTASONE) 10 MG TABLET 5 tablets PO Qday X 3, then 4 tablets PO Qday X 3, then 3 tablets PO Qday X 3, then 2 tablets PO Qday X 3, then 1 tablets PO Qday X 3, then stop. RISPERIDONE (RISPERDAL) 0.5 MG TABLET Take 1 tablet by mouth 2 times daily RIVAROXABAN (XARELTO) 15 MG TABS TABLET Take 1 tablet by mouth 2 times daily (with meals) SERTRALINE (ZOLOFT) 100 MG TABLET Take 1 tablet by mouth daily TIZANIDINE (ZANAFLEX) 4 MG TABLET Take 1 tablet by mouth 3 times daily ALLERGIES Morphine FAMILY HISTORY No family history on file. SOCIAL HISTORY Social History Social History ? Marital status: Spouse name: N/A ? Number of children: N/A ? Years of education: N/A Social History Main Topics ? Smoking status: Former Smoker ? Smokeless tobacco: Never Used ? Alcohol use No ? Drug use: No ? Sexual activity: Not on file Other Topics Concern ? Not on file Social History Narrative ? No narrative on file SCREENINGS PHYSICAL EXAM (5+ for level 4, 8+ for level 5) ED Triage Vitals [04/29/18 1823] BP Temp Temp Source Pulse Resp SpO2 Height Weight (!) 148/97 98.7 ?F (37.1 ?C) Oral 96 18 96 % -- -- CONSTITUTIONAL: Vital signs are charted, patient is awake alert oriented and in no severe acute distress, well-hydrated, normal appearance GEN. APPEARANCE: Well-developed well-nourished individual in no severe acute distress, vital signs are charted. LUNGS: Breath sounds are equal, clear to auscultation, no wheeze retractions or cyanosis and no crackles present. HEART: Regular rate and rhythm no murmur or thrill or rub, strong heart tones ABDOMEN: Soft and nontender no guarding rebound liver and spleen normal there is no palpable masses or aneurysm identified BACK: There is mild diffuse paralumbar tenderness, no thoracic or flank pain. NEURO: Cranial nerves II through XII are intact, motor and sensory exams are intact and normal, muscle strength is 5/5, deep tendon reflexes are 2/4, sensation to touch and pain is intact and normal, no ataxia, normal gait, no focal findings noted. PSYCH: Awake alert oriented, normal mood and affect. EXTREMITIES: Good muscle tone and strength, reflexes are symmetric bilaterally, no signs of any muscle wasting, SLRs intact and normal without significant pain. DIAGNOSTIC RESULTS EKG (Per Emergency Physician): RADIOLOGY (Per Emergency Physician): Interpretation per the Radiologist below, if available at the time of this note: No results found. LABS: Labs Reviewed - No data to display All other labs were within normal range or not returned as of this dictation. EMERGENCY DEPARTMENT COURSE and DIFFERENTIAL DIAGNOSIS/MDM: Vitals: Vitals: 04/29/18 1823 BP: (!) 148/97 Pulse: 96 Resp: 18 Temp: 98.7 ?F (37.1 ?C) TempSrc: Oral SpO2: 96% Medications oxyCODONE-acetaminophen (PERCOCET) 5-325 MG per tablet 2 tablet (2 tablets Oral Given 04/29/18 1834) MDM Clinically there is no sign of spinal nerve root or cord compression, patient has normal reflexes, normal motor and sensory exam, no paraparesis or paraplegia, and no saddle anesthesia. Emergency magnetic resonance imaging/CT not indicated. In addition, no sign suggesting an acute abdominal process including aneurysm or significant renal dysfunction or abnormalities. The patient has contacted another pain management physician and is waiting for a referral to go through from her primary doctor to get set up with pain management, we will give her 2 Percocet by mouth here since she has a ride with her now, and supply her 3 day course to take home. She is to recheck with her medical doctor regarding her back pain and pain and return to the Emergency Room physician pain numbness weakness paralysis incontinence paraparesis paraplegia or any saddle anesthesia. CONSULTS: None PROCEDURES: Unless otherwise noted below, none FINAL IMPRESSION 1. Lumbar degenerative disc disease DISPOSITION/PLAN DISPOSITION Decision To Discharge 04/29/2018 06:35:19 PM PATIENT REFERRED TO: No Horton MD [address] [facility] [address] [facility] [id number] Call in 3 days DISCHARGE MEDICATIONS: New Prescriptions OXYCODONE-ACETAMINOPHEN (PERCOCET) 5-325 MG PER TABLET Take 1-2 tablets by mouth every 4 hours as needed for Pain for up to 7 days.. (Please note: Portions of this note were completed with a voice recognition program. Efforts were made to edit the dictations but occasionally words and phrases are mis-transcribed.) Form [id number] ALEJANDRO BEAR MD (electronically signed) Emergency Medicine Provider Alejandro Bear MD 04/29/18 1838 ED PROVIDER NOTE Observed: 04/29/2018 Status: F Source: [employer] 11:40 AM SYSTEM REPOSITORY Emergency Department Encounter [facility] Patient: Regina Pereira : 1950 Date of Evaluation: 04/29/2018 ED DOMONIQUE Provider: Fede Wolf PA-C Chief Complaint Chief Complaint Patient presents with ? Back Pain Pt. presents to the ed with c/o lower back pain, pt. was just seen a treated yesterday for the same thing. E[facility] Regina Pereira is a 67 y.o. female who presents to the emergency department With a chief complaint of chronic low back pain. The patient was just seen here in the ER yesterday. Patient was given Percocet and discharged home with prescription for Lidoderm patch, steroids as well as anti- inflammatory muscle relaxer. She was also given number for pain management to call. Patient states that she took her to work this morning in a cab and on the way home to side. Back to the ER. Patient is requesting narcotic pain medication. Patient states she was released from pain management due to a missed pill count. Patient states that she needs something*for pain than what she is taking. She denies any recent new injury. She denies any fevers or chills. Denies any bladder or bowel dysfunction. ROS: Review of Systems Constitutional: Negative. HENT: Negative. Eyes: Negative. Respiratory: Negative. Cardiovascular: Negative. Gastrointestinal: Negative. Endocrine: Negative. Genitourinary: Negative. Musculoskeletal: Positive for back pain and myalgias. Skin: Negative. Allergic/Immunologic: Negative. Neurological: Negative. Hematological: Negative. Psychiatric/Behavioral: Negative. All other systems reviewed and are negative. At least 10 systems reviewed and otherwise acutely negative except as in the EKUK. Past History Past Medical History: Diagnosis Date ? Chronic back pain ? DDD (degenerative disc disease), lumbar ? Depression ? Hypertension ? Scoliosis ? Thyroid disease Past Surgical History: Procedure Laterality Date ? SECTION ? HYSTERECTOMY Social History Social History ? Marital status: Spouse name: N/A ? Number of children: N/A ? Years of education: N/A Social History Main Topics ? Smoking status: Former Smoker ? Smokeless tobacco: Never Used ? Alcohol use No ? Drug use: No ? Sexual activity: Not on file Other Topics Concern ? Not on file Social History Narrative ? No narrative on file Medications/Allergies Previous Medications LIDOCAINE (LIDODERM) 5 % Place 1 patch onto the skin daily 12 hours on, 12 hours off. LISINOPRIL-HYDROCHLOROTHIAZIDE (PRINZIDE;ZESTORETIC) 10-12.5 MG PER TABLET Take 1 tablet by mouth PREDNISONE (DELTASONE) 10 MG TABLET 5 tablets PO Qday X 3, then 4 tablets PO Qday X 3, then 3 tablets PO Qday X 3, then 2 tablets PO Qday X 3, then 1 tablets PO Qday X 3, then stop. RISPERIDONE (RISPERDAL) 0.5 MG TABLET Take 1 tablet by mouth 2 times daily RIVAROXABAN (XARELTO) 15 MG TABS TABLET Take 1 tablet by mouth 2 times daily (with meals) SERTRALINE (ZOLOFT) 100 MG TABLET Take 1 tablet by mouth daily TIZANIDINE (ZANAFLEX) 4 MG TABLET Take 1 tablet by mouth 3 times daily Allergies Allergen Reactions ? Morphine Itching Physical Exam ED Triage Vitals [04/29/18 1157] BP Temp Temp Source Pulse Resp SpO2 Height Weight 130/87 98.4 ?F (36.9 ?C) Oral 96 18 100 % 5' 9 (1.753 m) 237 lb (107.5 kg) Physical Exam Constitutional: She is oriented to person, place, and time. She appears well-developed and well-nourished. She is active and cooperative. Non-toxic appearance. She does not have a sickly appearance. She does not appear ill. No distress. Cardiovascular: Normal rate, regular rhythm, normal heart sounds and intact distal pulses. Pulmonary/Chest: Effort normal and breath sounds normal. Abdominal: Soft. Bowel sounds are normal. There is no tenderness. There is no rebound. Musculoskeletal: She exhibits tenderness. Lumbar back: She exhibits decreased range of motion and pain. Back: Neurological: She is alert and oriented to person, place, and time. Skin: Skin is warm and dry. She is not diaphoretic. Psychiatric: She has a normal mood and affect. Her behavior is normal. Judgment and thought content normal. Nursing note and vitals reviewed. Diagnostics Labs: No results found for this visit on 04/29/18. Radiographs: No results found. Procedures: ED Course and MDM In brief, Regina Pereira is a 67 y.o. female who presented to the emergency department With a chief complaint of chronic low back pain. The patient was just seen here in the ER yesterday. Patient was given Percocet and discharged home with prescription for Lidoderm patch, steroids as well as anti-inflammatory muscle relaxer. She was also given number for pain management to call. Patient states that she took her to work this morning in a cab and on the way home to side. Back to the ER. Patient is requesting narcotic pain medication. Patient states she was released from pain management due to a missed pill count. Patient states that she needs something*for pain than what she is taking. She denies any recent new injury. She denies any fevers or chills. Denies any bladder or bowel dysfunction. Patient was given Tylenol emergency room. Patient states that she arrived here by cab. She is requesting Percocet and explained the patient and I was not comfortable giving her Percocet given the fact that she was contacted Home and the cabinet installer cannot vouch for her safety or well being. I did review the patient's prescription monitoring report which shows multiple narcotic prescriptions from multiple providers. I also read of the patient's EMR the FYI describing drug-seeking behavior. I explained to the patient that I understand she has chronic back pain and that she was recently discharged from pain management due to a missed pill count but I will not be prescribing any controlled substances. The patient was just seen her yesterday was given prescriptions for steroids, Lidoderm patch as well as muscle relaxants. Patient was also given a number to call for pain management referral today. She states that she will call the number when she gets home. I do not suspect cauda equina syndrome, there is no fever or chills nausea or vomiting. The patient has appears to be acute exacerbation of chronic low back pain and I am suspicious of some drug-seeking behavior. ED Medication Orders Start Ordered Status Ordering Provider 04/29/18 1215 04/29/18 1208 acetaminophen (TYLENOL) tablet 650 mg ONCE Ordered FEDE WOLF Final Impression 1. Acute exacerbation of chronic low back pain 2. Drug-seeking behavior DISPOSITION Patient seen independently with an Emergency Medicine attending available for supervision. (Please note that portions of this note may have been completed with a voice recognition program. Efforts were made to edit the dictations but occasionally words are mis-transcribed.) Fede Wolf PA-C [facility] [employer] Fede Wolf PA-C 04/29/18 1216 ED PROVIDER NOTE Observed: 04/28/2018 Status: F Source: [employer] 4:07 PM SYSTEM REPOSITORY Emergency Department Encounter [facility] Patient: Regina Pereira : 1950 Date of Evaluation: 04/28/2018 ED DOMONIQUE Provider: Fede Wolf PA-C Chief Complaint Chief Complaint Patient presents with ? Back Pain [facility] Regina Pereira is a 67 y.o. female who presents to the emergency department presents for complaint of acute exacerbation of chronic low back pain. Patient states that she is currently out of her pain medication. Patient claims that she was discharged from her pain management practice last month after missing a pill count. According to the patient she has been coming to the ER multiple occasions for refills of her Percocet. She states that her have been trying to locate a new pain management physician was so far been unsuccessful. Patient states the pain is constant and worse with movement, this is her typical chronic low back pain.Patient also states that her psoriasis is acting up. She was seen by a clerical warehouseman who put her on triamcinolone cream. She states that he will again this seems to help his prednisone. He denies any fevers or chills. She denies any nausea or vomiting. ROS: Review of Systems Constitutional: Negative. HENT: Negative. Eyes: Negative. Respiratory: Negative. Cardiovascular: Negative. Gastrointestinal: Negative. Endocrine: Negative. Genitourinary: Negative. Negative for dysuria and flank pain. Musculoskeletal: Positive for back pain and myalgias. Skin: Negative. Negative for color change. Allergic/Immunologic: Negative. Neurological: Negative. Hematological: Negative. Psychiatric/Behavioral: Negative. All other systems reviewed and are negative. At least 10 systems reviewed and otherwise acutely negative except as in the EKUK. Past History Past Medical History: Diagnosis Date ? Chronic back pain ? DDD (degenerative disc disease), lumbar ? Depression ? Hypertension ? Scoliosis ? Thyroid disease Past Surgical History: Procedure Laterality Date ? SECTION ? HYSTERECTOMY Social History Social History ? Marital status: Spouse name: N/A ? Number of children: N/A ? Years of education: N/A Social History Main Topics ? Smoking status: Former Smoker ? Smokeless tobacco: Never Used ? Alcohol use No ? Drug use: No ? Sexual activity: Not on file Other Topics Concern ? Not on file Social History Narrative ? No narrative on file Medications/Allergies Previous Medications LISINOPRIL-HYDROCHLOROTHIAZIDE (PRINZIDE;ZESTORETIC) 10-12.5 MG PER TABLET Take 1 tablet by mouth RISPERIDONE (RISPERDAL) 0.5 MG TABLET Take 1 tablet by mouth 2 times daily RIVAROXABAN (XARELTO) 15 MG TABS TABLET Take 1 tablet by mouth 2 times daily (with meals) SERTRALINE (ZOLOFT) 100 MG TABLET Take 1 tablet by mouth daily Allergies Allergen Reactions ? Morphine Itching Physical Exam ED Triage Vitals [04/28/18 1611] BP Temp Temp Source Pulse Resp SpO2 Height Weight 105/66 98 ?F (36.7 ?C) Oral -- -- 98 % 5' 9 (1.753 m) 237 lb (107.5 kg) Physical Exam Constitutional: She is oriented to person, place, and time. She appears well-developed and well-nourished. She is active and cooperative. Non-toxic appearance. She does not have a sickly appearance. She does not appear ill. No distress. HENT: Head: Normocephalic and atraumatic. Right Ear: External ear normal. Left Ear: External ear normal. Nose: Nose normal. Mouth/Throat: Oropharynx is clear and moist. Eyes: Pupils are equal, round, and reactive to light. Conjunctivae are normal. No scleral icterus. Neck: Normal range of motion. Neck supple. Cardiovascular: Normal rate, regular rhythm, normal heart sounds and intact distal pulses. Pulmonary/Chest: Effort normal and breath sounds normal. She has no wheezes. She has no rales. She exhibits no tenderness. Abdominal: Soft. Bowel sounds are normal. There is no tenderness. There is no rebound and no guarding. Musculoskeletal: She exhibits tenderness. Lumbar back: She exhibits decreased range of motion, tenderness, pain and spasm. Back: Lower lumbar exam shows some spasm and tenderness, there is no swelling or erythema, no signs of trauma Neurological: She is alert and oriented to person, place, and time. No cranial nerve deficit. Coordination normal. Skin: Skin is warm and dry. Rash noted. She is not diaphoretic. Patient has some dried psoriasis plaques on her lower extremities. They did not appear to be infected, there are no open wounds or ulcerations noted Psychiatric: She has a normal mood and affect. Her behavior is normal. Judgment and thought content normal. Nursing note and vitals reviewed. Diagnostics Labs: No results found for this visit on 04/28/18. Radiographs: No results found. Procedures: ED Course and MDM In brief, Regina Pereira is a 67 y.o. female who presented to the emergency department presents for complaint of acute exacerbation of chronic low back pain. Patient states that she is currently out of her pain medication. Patient claims that she was discharged from her pain management practice last month after missing a pill count. According to the patient she has been coming to the ER multiple occasions for refills of her Percocet. She states that her have been trying to locate a new pain management physician was so far been unsuccessful. Patient states the pain is constant and worse with movement, this is her typical chronic low back pain.Patient also states that her psoriasis is acting up. She was seen by a clerical warehouseman who put her on triamcinolone cream. She states that he will again this seems to help his prednisone. He denies any fevers or chills. She denies any nausea or vomiting. I did review the patient's prescription monitoring reports which shows multiple narcotics prescription from multiple prescribers. X-ray the patient that I am uncomfortable prescribing any further narcotic pain medication from the emergency department. I am happy to give her a dose of Percocet here as well as prednisone. The plan will be to discharge her home on prednisone, Zanaflex and Lidoderm patches and recommend that she follow up with her primary care doctor for any further narcotic pain medications. Patient denies any saddle paresthesias, denies any bladder or bowel dysfunction. I do not suspect cauda equina syndrome. The psoriasis does not appear to be infected. Patient is encouraged to return should she have any concerns or worsening of symptoms all questions answered prior to discharge ED Medication Orders Start Ordered Status Ordering Provider 04/28/18 1630 04/28/18 1622 oxyCODONE-acetaminophen (PERCOCET) 5-325 MG per tablet 2 tablet ONCE Ordered FEDE WOLF Final Impression 1. Acute exacerbation of chronic low back pain 2. Psoriasis DISPOSITION Patient seen independently with an Emergency Medicine attending available for supervision. (Please note that portions of this note may have been completed with a voice recognition program. Efforts were made to edit the dictations but occasionally words are mis-transcribed.) Fede Wolf PA-C [employer] Fede Wolf PA-C 04/28/18 1645 PROGRESS Observed: 04/23/2018 Status: COMPLETED Source: [facility] 10:20 AM CLINIC OTHER CAMPUS REPOSITORY O ID: [id number] Author: Christie Garza Service: (none) Author Type: Physician Type: Progress Notes Filed: 04/23/2018 11:23 AM Note Text: Subjective Regina Pereira is a 67 year old female who presents for Skin Check (Possible yeast on vulva near clitoris). Itching and burning. Pt stated that symptoms present for more than a week, and itching is really bothering her. No fever, chills or abdominal pain. She stated noticing a mild non odorous white colored discharge. Pt is currently not sexually active. She had a hysterectomy in her 40s. Pt was prescribed an antibiotic for a UTI 2-3 weeks ago. Pt denied noticing any urinary symptoms at this time, no difficulty urination, urgency or increased frequency. Review of Systems Constitutional: Negative for chills and fever. Gastrointestinal: Negative for abdominal pain, constipation, diarrhea, nausea and vomiting. Genitourinary: Negative for dysuria, flank pain, frequency and urgency. Skin: Positive for itching. Negative for rash. PAST MEDICAL HISTORY Diagnosis Date - Acquired hypothyroidism - Anxiety - Compression fracture of lumbar vertebra (HCC) - DDD (degenerative disc disease), lumbar - Depression - H/O blood clots - Hypertension - PE (pulmonary thromboembolism) (HCC) - Scoliosis PAST SURGICAL HISTORY Procedure Laterality Date - BREAST LUMPECTOMY HX Right - SECTION HX 1984 - HYSTERECTOMY - LAPAROSCOPIC EXC ENDOMETRIOSIS/CYST FAMILY HISTORY Problem Relation Age of Onset - Diabetes Mother - Hypertension Mother - Alcohol/Drug Mother - Cancer Mother - other (Depression/Anxiety) Mother - Alcohol/Drug Father - Diabetes Sister - Hypertension Sister Social History Marital status: Spouse name: Years of education: Number of children: Social History Main Topics Smoking status: Former Smoker Packs/day: 0.00 Years: 0.00 Types: Cigarettes Smokeless tobacco: Never Used Alcohol use: Yes Comment: rarely Drug use: No Sexual activity: Not Currently Partners with: Male Other Topics Concern Service No Blood Transfusions Yes Caffeine Concern Yes Comment:1 cup tea daily Sleep Concern Yes Stress Concern No Weight Concern Yes Special Diet No Exercise No Seat Belt Yes Current Meds rivaroxaban (XARELTO) 20 mg tablet Take 1 tablet by mouth daily with dinner. sertraline (ZOLOFT) 100 mg tablet Take 1 tablet by mouth once daily. lisinopril-hydrochlorothiazide (PRINZIDE, ZESTORETIC) 20-25 mg per tablet Take 1 tablet by mouth once daily. amoxicillin/potassium clav (AUGMENTIN ORAL) Take by mouth. risperiDONE (RISPERDAL) 0.5 mg tablet Take 1 tablet by mouth twice daily. levothyroxine (SYNTHROID) 50 mcg tablet Take 1 tablet by mouth once daily. rivaroxaban (XARELTO) 15 mg tablet Take one tab by mouth twice daily for the next 21 days. lisinopril-hydrochlorothiazide (PRINZIDE,ZESTORETIC) 10-12.5 mg per tablet Take 1 tablet by mouth once daily. Objective BP 112/64 Pulse 98 Temp 97.4 Ht 5' 9 (1.75m) Wt 238 lb (108.0kg) SpO2 92% BMI 35.13 kg/(m2). Physical Exam Constitutional: She is well-developed, well-nourished, and in no distress. HENT: Head: Normocephalic and atraumatic. Abdominal: Soft. She exhibits no distension. There is no tenderness. There is no rebound and no guarding. Genitourinary: Vulva exhibits no erythema, no lesion, no rash and no tenderness. Vagina exhibits normal mucosa. Curdy odorless white and vaginal discharge found. ASSESSMENT/PLAN: 1. Marika vaginitis - ICD9: 112.1, ICD10: B37.3 Likely from use of antibiotics recently. - FLUCONAZOLE 150 MG TABLET -Pt will also use OTC vaginal emollient to help with itchingas she does appear to have component of atrophic vaginitis as well. Christie Garza MD CNOV Observed: 04/23/2018 Status: COMPLETED Source: [facility] 10:20 AM CLINIC OTHER CAMPUS REPOSITORY Office Visit ([facility]) REGINA PEREIRA ([id number]) 1950 F Date Time Provider Department 04/23/18 10:20 AM CHRISTIE GARZA During your visit today, we recorded the following information about you: Temperature Pulse Blood pressure Weight 97.4 degrees 98/minute 112/64 108 kg Height 1.753 m Christie Garza MD 04/23/2018 11:23 AM Signed Subjective Regina Pereira is a 67 year old female who presents for Skin Check (Possible yeast on vulva near clitoris). Itching and burning. Pt stated that symptoms present for more than a week, and itching is really bothering her. No fever, chills or abdominal pain. She stated noticing a mild non odorous white colored discharge. Pt is currently not sexually active. She had a hysterectomy in her 40s. Pt was prescribed an antibiotic for a UTI 2-3 weeks ago. Pt denied noticing any urinary symptoms at this time, no difficulty urination, urgency or increased frequency. Review of Systems Constitutional: Negative for chills and fever. Gastrointestinal: Negative for abdominal pain, constipation, diarrhea, nausea and vomiting. Genitourinary: Negative for dysuria, flank pain, frequency and urgency. Skin: Positive for itching. Negative for rash. PAST MEDICAL HISTORY Diagnosis Date - Acquired hypothyroidism - Anxiety - Compression fracture of lumbar vertebra (HCC) - DDD (degenerative disc disease), lumbar - Depression - H/O blood clots - Hypertension - PE (pulmonary thromboembolism) (HCC) - Scoliosis PAST SURGICAL HISTORY Procedure Laterality Date - BREAST LUMPECTOMY HX Right - SECTION HX 1984 - HYSTERECTOMY - LAPAROSCOPIC EXC ENDOMETRIOSIS/CYST FAMILY HISTORY Problem Relation Age of Onset - Diabetes Mother - Hypertension Mother - Alcohol/Drug Mother - Cancer Mother - other (Depression/Anxiety) Mother - Alcohol/Drug Father - Diabetes Sister - Hypertension Sister Social History Marital status: Spouse name: Years of education: Number of children: Social History Main Topics Smoking status: Former Smoker Packs/day: 0.00 Years: 0.00 Types: Cigarettes Smokeless tobacco: Never Used Alcohol use: Yes Comment: rarely Drug use: No Sexual activity: Not Currently Partners with: Male Other Topics Concern Service No Blood Transfusions Yes Caffeine Concern Yes Comment:1 cup tea daily Sleep Concern Yes Stress Concern No Weight Concern Yes Special Diet No Exercise No Seat Belt Yes Current Meds rivaroxaban (XARELTO) 20 mg tablet Take 1 tablet by mouth daily with dinner. sertraline (ZOLOFT) 100 mg tablet Take 1 tablet by mouth once daily. lisinopril-hydrochlorothiazide (PRINZIDE, ZESTORETIC) 20-25 mg per tablet Take 1 tablet by mouth once daily. amoxicillin/potassium clav (AUGMENTIN ORAL) Take by mouth. risperiDONE (RISPERDAL) 0.5 mg tablet Take 1 tablet by mouth twice daily. levothyroxine (SYNTHROID) 50 mcg tablet Take 1 tablet by mouth once daily. rivaroxaban (XARELTO) 15 mg tablet Take one tab by mouth twice daily for the next 21 days. lisinopril-hydrochlorothiazide (PRINZIDE,ZESTORETIC) 10-12.5 mg per tablet Take 1 tablet by mouth once daily. Objective BP 112/64 Pulse 98 Temp 97.4 Ht 5' 9 (1.75m) Wt 238 lb (108.0kg) SpO2 92% BMI 35.13 kg/(m2). Physical Exam Constitutional: She is well-developed, well-nourished, and in no distress. HENT: Head: Normocephalic and atraumatic. Abdominal: Soft. She exhibits no distension. There is no tenderness. There is no rebound and no guarding. Genitourinary: Vulva exhibits no erythema, no lesion, no rash and no tenderness. Vagina exhibits normal mucosa. Curdy odorless white and vaginal discharge found. ASSESSMENT/PLAN: 1. Marika vaginitis - ICD9: 112.1, ICD10: B37.3 Likely from use of antibiotics recently. - FLUCONAZOLE 150 MG TABLET -Pt will also use OTC vaginal emollient to help with itchingas she does appear to have component of atrophic vaginitis as well. MD Danelle Cruz, [facility] 04/23/2018 10:22 AM Addendum Please take 1 dose of diflucan for your symptoms. You can also use over the counter vaginal emollients for itching as well. Referring Provider: NO HORTON [[id number]] Allergies As of Date: 04/23/2018 Noted Allergy Reaction MORPHINE 07/22/2017 9 - Itching Date Reviewed: 04/23/2018 Reviewed by: Christie Garza - Fully Assessed Reason for Visit: Skin Check [1179] Cmt: Possible yeast on vulva near clitoris Primary Visit Diagnosis:Marika vaginitis [B37.3] Order(s):fluconazole (DIFLUCAN) 150 mg tabletTake 1 tablet by mouth one time only for 1 dose.Disp: 1 tabletRfl: 0 Prescriptions as of 04/23/2018 Sig: RIVAROXABAN 20 MG TABLET Take 1 tablet by mouth daily * SERTRALINE 100 MG TABLET Take 1 tablet by mouth once d* LISINOPRIL 20 MG-HYDROCHLOROT* Take 1 tablet by mouth once d* FLUCONAZOLE 150 MG TABLET Take 1 tablet by mouth one ti* AUGMENTIN ORAL Take by mouth. RISPERIDONE 0.5 MG TABLET Take 1 tablet by mouth twice * Patient not taking: Reported on 04/23/2018 LEVOTHYROXINE 50 MCG TABLET Take 1 tablet by mouth once d* Patient not taking: Reported on 04/23/2018 RIVAROXABAN 15 MG TABLET Take one tab by mouth twice d* Patient not taking: Reported on 12/15/2017 LISINOPRIL 10 MG-HYDROCHLOROT* Take 1 tablet by mouth once d* Problem List As Of Date 04/23/2018 Noted Resolved Anxiety [F41.9] Compression fracture of lumbar vertebra (HCC) [* Depression [F32.9] DDD (degenerative disc disease), lumbar [M51.36] H/O blood clots [Z86.718] Hypertension [I10] Scoliosis [M41.9] Other instructions from your clinician: Please take 1 dose of diflucan for your symptoms. You can also use over the counter vaginal emollients for itching as well. Prescriptions ordered this encounter Disp Refills Start End FLUCONAZOLE 150 MG TABLET 1 ta* 0 04/23/2018 04/23/2018 Route: ORAL Sig: Take 1 tablet by mouth one time only for 1 dose. Disposition: Return if symptoms worsen or fail to improve. Follow-up and Disposition History Recorded Encounter Status:Closed by CHRISTIE GARZA MD on 04/23/18 CR SPINE LUMBOSACRAL 2 Observed: 04/19/2018 Status: F Source: [facility] OR 3 VIEWS 10:23 AM SYSTEM REPOSITORY Patient Name: REGINA PEREIRA Diagnostic Radiology Exam Date/Time 04/19/2018 10:10:43 EDT Exam CR Spine Lumbosacral 2 or 3 Views Ordering Physician LANA SANTIAGO CARA J Accession Number [id number] CPT4 Codes 23014 () Reason For Exam assess compression fracture Report Lumbar spine CLINICAL INDICATION: Back pain. Compression fracture. COMPARISON: 07/19/2017 AP, lateral and lumbosacral spot views were obtained. There are five nonrib-bearing lumbar-type vertebra. Levoconvex scoliotic curvature has apex at L2-L3 level and appears unchanged from the prior study. Hypertrophic endplate degenerative changes are greater along the lesser curvature of the scoliosis. L1 vertebra shows compression, asymmetrically on the left side without significant change from the prior study. Degenerative disc height loss and vacuum disc phenomenon involves L1-L2, L2-L3 and L3-L4 discs and appear unchanged. IMPRESSION: L1 compression and levoconvex scoliosis appear unchanged from the prior exam Report Dictated on Final Dictated: 04/19/2018 10:23 am Dictating Physician: MD CHEUNG DIANE Signed Date and Time: 04/19/2018 10:27 am Signed by: MD CHEUNG DIANE Transcribed Date and Time: 04/19/2018 10:23 Observed: 04/14/2018 Status: F Source: [facility] CULTURE URINE 1:31 PM SYSTEM REPOSITORY Order Comment: Specimen Source Comment:Urine, clean catch CULTURE URINE --> Status: F Normal urogenital tyree present. Performed By: #### C/UR #### [facility] [address] [place] [id number] URINALYSIS,MACRO Collected: 04/14/2018 Status: F Source: [facility] 1:28 PM SYSTEM REPOSITORY TYPE CODE TESTS RESULT OUT OF REFERENCE UNITS RANGE LAB APPUR Clear NA Appearance Clear LAB COLUR Lt. Yellow NA Color Yellow LAB USG 1.005-1.030 NA Specific Normal [place],Urine 1.015 LAB UPH 5.0-8.0 NA pH,Urine Normal 6.0 LAB ULUK Negative NA Leukocytes 2 + LAB UNIT Negative NA Nitrites NEG LAB UPRO Negative mg/dL Total Protein,Urine Trace (15) LAB UGLU Negative mg/dL Glucose,Urine NEG (Normal) LAB UKET Negative mg/dL Ketone,Urine Negative LAB UURO 0-1 mg/dL Urobilinogen Normal (0.2) LAB UBIL Negative NA Bilirubin,Ur Negative LAB UBLD Negative {RBC}/uL Occult Blood,Ur Trace Performed By: #### UAMAC, DRGA4, UAMIC #### [facility] [place] [address] DRUGS OF ABUSE Collected: 04/14/2018 Status: F Source: [facility] 1:28 PM SYSTEM REPOSITORY TYPE CODE TESTS RESULT OUT OF REFERENCE UNITS RANGE LAB AMP3 NA Amphetamines, Ur Negative LAB BARB3 NA Barbiturates, Ur Negative LAB BENZ3 NA Benzodiazepines, Negative Ur LAB COC3 NA Cocaine, Ur Negative LAB METH3 NA Methadone, Ur Negative LAB OPI3 NA Opiates, Ur Negative LAB OXY3 NA Oxycodone/Oxymorph Positive ine,Ur LAB PCP3 NA Phencyclidine (PCP), Ur Negative Result Comment: The expected value for all of the drugs listed above is Negative. The following drugs or drug groups have been screened for by Immunoassay at the following thresholds: Amphetamine class (1000 ng/mL), Barbiturates (200 ng/mL), Benzodiazepines (200 ng/mL), Cocaine (300 ng/mL), Methadone (300 ng/mL), Opiates (300 ng/mL), Oxycodone (100 ng/mL), and PCP (25 ng/mL). NOTE: These results are for medical treatment only. Analysis performed using non-forensic procedures. Performed By: #### UAMAC, DRGA4, UAMIC #### [facility] [address] [place] [address] URINALYSIS,MICROSCOPIC Collected: Status: F Source: [facility] 04/14/2018 1:28 PM HEALTH SYSTEM REPOSITORY TYPE CODE TESTS RESULT OUT OF REFERENCE UNITS RANGE LAB WBCU 0-5 /[HPF] 6 WBC,Urine - 10 LAB RBCU 0-2 /[HPF] RBC,Urine Negative LAB EPIU 3-5 /[HPF] 0 Epithelial Cells - 2 Performed By: #### UAMAC, DRGA4, UAMIC #### [facility] [address] [place] [address] PROGRESS Observed: 04/03/2018 Status: COMPLETED Source: [facility] 2:18 PM [facility] OTHER [facility] REPOSITORY HNO ID: [id number] Author: Kena Peterson) [place] Service: (none) Author Type: Registered Nurse Type: Progress Notes Filed: 04/03/2018 2:27 PM Note Text: PRIMARY CARE COORDINATION QUICK NOTE Provider Action/FYI Patient contacted office re: zoloft, states she is out of her medication. Advised 6 month supply was called to [facility] 12/18 Patient states she does not go to [facility] any longer, advised she is able to transfer prescriptions through pharmacies if needed. Patient will reach out to pharmacy. Patient identified by name and date . Kena Bennett RN CNPTOUTREACH Observed: 04/03/2018 Status: COMPLETED Source: [facility] 12:00 AM [facility] REPOSITORY Patient Outreach ([facility]) REGINA PEREIRA ([id number]) 1950 F Date Time Provider Department 04/03/18 KENA BENNETT) [facility] During your visit today, we recorded the following information about you: Kena Bennett RN 04/03/2018 2:27 PM Signed PRIMARY CARE COORDINATION QUICK NOTE Provider Action/FYI Patient contacted office re: zoloft, states she is out of her medication. Advised 6 month supply was called to [facility] 12/18 Patient states she does not go to [facility] any longer, advised she is able to transfer prescriptions through pharmacies if needed. Patient will reach out to pharmacy. Patient identified by name and date . Kena Bennett RN Allergies As of Date: 04/03/2018 (No Known Allergies) Date Reviewed: 03/02/2018 Reviewed by: Mami (Rn) JODIE King - Fully Assessed Prescriptions as of 04/03/2018 Sig: RIVAROXABAN 20 MG TABLET Take 1 tablet by mouth daily * AUGMENTIN ORAL Take by mouth. RISPERIDONE 0.5 MG TABLET Take 1 tablet by mouth twice * SERTRALINE 100 MG TABLET Take 1 tablet by mouth once d* LEVOTHYROXINE 50 MCG TABLET Take 1 tablet by mouth once d* RIVAROXABAN 15 MG TABLET Take one tab by mouth twice d* Patient not taking: Reported on 12/15/2017 LISINOPRIL 20 MG-HYDROCHLOROT* Take 1 tablet by mouth once d* LISINOPRIL 10 MG-HYDROCHLOROT* Take 1 tablet by mouth once d* Problem List As Of Date 04/03/2018 Noted Resolved Anxiety [F41.9] Compression fracture of lumbar vertebra (HCC) [* Depression [F32.9] DDD (degenerative disc disease), lumbar [M51.36] H/O blood clots [Z86.718] Hypertension [I10] Scoliosis [M41.9] Encounter Status:Closed by KENA BENNETT RN on 04/03/18 UR ETHANOL QT Collected: 03/24/2018 Status: F Source: [facility] 7:12 PM [facility] REPOSITORY Order Comment: CBN: YES [place]: MAIN TYPE CODE TESTS RESULT OUT OF RANGE REFERENCE UNITS LAB L600.03492 <10.0 mg/dL Normal UR ETHANOL QT < 3.0 Result Comment: UNCONFIRMED Toxicology results. For MEDICAL purposes only. Performed By: #### L600.32496 #### Test performed at: [facility] [id number] [address] [place] [id number] #### L600.03489, L600.86463 #### Test performed at: [place] [address] LIMIT UR TOX Collected: 03/24/2018 Status: F Source: [facility] 7:12 PM [facility] REPOSITORY Order Comment: CBN: YES [place]: MAIN TYPE CODE TESTS RESULT OUT OF RANGE REFERENCE UNITS LAB L600.14621 5.0-8.0 Normal PH 5.0 TOX LAB L600.22240 Negative Normal UR NEGATIVE NA Result Comment: MWOZWL=016 LAB L600.09336 Negative UR Normal TAMEKA/THC NEGATIVE Result Comment: CUTOFF=50 LAB L600.94359 Negative Normal UR NEGATIVE AMPH Result Comment: GTKMRJ=[id number] LAB L600.04148 Negative ABNORMAL UR ECSTASY Preliminary Positive Result Comment: Sent to Reference LAB for Confirmation QFTQUU=782 LAB L600.11916 Negative Normal UR NEGATIVE KATHIE Result Comment: OQXMYU=672 LAB L600.06564 Negative Normal UR NEGATIVE ZA Result Comment: HDDXZB=339 LAB L600.37720 Negative Normal UR NEGATIVE METH Result Comment: BJVGIB=716 LAB L600.50399 Negative Normal NEGATIVE UR PCP Result Comment: CUTOFF=25 LAB L600.44138 Negative UR ABNORMAL OXYCOCONE POSITIVE Result Comment: GQUNPI=242 LAB L600.73147 Negative ABNORMAL UR POSITIVE OPIAT Result Comment: KJELHW=589 LAB L600.81766 Normal TOX COMMENT *PLEASE NOTE: Result Comment: UNCONFIRMED Toxicology results. For MEDICAL purposes only. LAB L600.67368 Negative UR Normal BUPREN/NORBU NEGATIVE Result Comment: CUTOFF=10 Performed By: #### L600.18573 #### Test performed at: [facility] [id number] [address] [place] [id number] #### L600.44466, L600.00294 #### Test performed at: [place] [address] UR MDMA CONFIRM Collected: 03/24/2018 Status: F Source: [facility] 7:12 PM [facility] REPOSITORY Order Comment: CBN: YES [place]: MAIN TYPE CODE TESTS RESULT OUT OF RANGE REFERENCE UNITS LAB L600.85750 Vzdzag=294 Normal UR MDMA Negative CONFIRM Result Comment: Please Note: Drug-test results should be interpreted in the context of clinical information. Patient metabolic variables, specific drug chemistry, and specimen characteristics can affect test outcome. Technical consultation is available if a test result is inconsistent with an expected outcome. ([email or web address] or call toll-free [phone]) Performed By: #### L600.54153 #### Test performed at: [facility] [id number] [address] [place], [place] [address] #### L600.06197, L600.78114 #### Test performed at: [address] [address] PROGRESS Observed: 03/09/2018 Status: COMPLETED Source: [facility] 11:40 AM CLINIC OTHER CAMPUS REPOSITORY HNO ID: [id number] Author: Kena Peterson) Dinorah Service: (none) Author Type: Registered Nurse Type: Progress Notes Filed: 03/09/2018 11:40 AM Note Text: Opened in error CNPTOUTREACH Observed: 03/09/2018 Status: COMPLETED Source: [facility] 12:00 AM [facility] OTHER [facility] REPOSITORY Patient Outreach ([facility]) REGINA PEREIRA ([id number]) 1950 F Date Time Provider Department 03/09/18 KENA BENNETT) [facility] During your visit today, we recorded the following information about you: Kena Bennett RN 03/09/2018 11:40 AM Signed Opened in error Allergies As of Date: 03/09/2018 (No Known Allergies) Date Reviewed: 03/02/2018 Reviewed by: Mami Peterson) JODIE King - Fully Assessed Prescriptions as of 03/09/2018 Sig: RIVAROXABAN 20 MG TABLET Take 1 tablet by mouth daily * AUGMENTIN ORAL Take by mouth. PREDNISONE 50 MG TABLET Take 1 tablet by mouth once d* RISPERIDONE 0.5 MG TABLET Take 1 tablet by mouth twice * SERTRALINE 100 MG TABLET Take 1 tablet by mouth once d* LEVOTHYROXINE 50 MCG TABLET Take 1 tablet by mouth once d* RIVAROXABAN 15 MG TABLET Take one tab by mouth twice d* Patient not taking: Reported on 12/15/2017 LISINOPRIL 20 MG-HYDROCHLOROT* Take 1 tablet by mouth once d* LISINOPRIL 10 MG-HYDROCHLOROT* Take 1 tablet by mouth once d* Problem List As Of Date 03/09/2018 Noted Resolved Anxiety [F41.9] Compression fracture of lumbar vertebra (HCC) [* Depression [F32.9] DDD (degenerative disc disease), lumbar [M51.36] H/O blood clots [Z86.718] Hypertension [I10] Scoliosis [M41.9] Encounter Status:Closed by KENA BENNETT RN on 03/09/18 PROGRESS Observed: 03/04/2018 Status: COMPLETED Source: [facility] 9:30 AM CLINIC OTHER CAMPUS REPOSITORY O ID: [id number] Author: Kena (Jodie) Dinorah Service: (none) Author Type: Registered Nurse Type: Progress Notes Filed: 03/04/2018 9:39 AM Note Text: [facility] EMERGENCY DEPARTMENT FOLLOW UP INITIAL CONTACT Provider Action/FYI: Spoke to patient who states had surgery on foot 2 1/2 weeks ago due to having glass in foot-states appt with Dr. madsen peanut farmer at [facility]. Initial contact with patient post discharge, spoke to patient. Patient identified by name and date : YES SUMMARY: -Patient discharged from [facility] ED on 03/02/18 after going to [facility] the same day and being seen. -Follow up appointment on 03/[address] Madsen (sp?). -Medication review done . -Presented with: Rash and foot pain CONCERNS: Amount of prednisone patient has been on the past two years, despite education and scheduling with derm-has seen two this summer NEW MEDICATIONS: Prednisone 50mg MEDS HELD/DISCONTINUED: none BRIEF ED COURSE: Per note: Patient presents with: Rash Pain (foot) ? ? 67-year-old female with a history of chronic pain is here requesting opiate pain medication. She saw her peanut farmer today for a left foot issue that she has been dealing with and was told that there is no evidence of infection. She asked her peanut farmer for opiate pain medication but was told that she was unable to prescribe. She is in pain management and states that she has Percocet at home but would like a dose of Percocet here because she feels that she needs more than usual. She denies any redness or draining from her wounds. She also has a psoriasis flare on her right leg and would like a prescription for prednisone for this. ? Kena Bennett RN ED PROV NOTE Observed: 03/02/2018 Status: COMPLETED Source: [facility] 1:17 PM CLINIC OTHER CAMPUS REPOSITORY [facility] ID: [id number] Author: Elias Teague MD Service: Emergency Medicine Author Type: Physician Type: ED Provider Notes Filed: 03/02/2018 1:20 PM Note Text: ED Provider Note Patient Name: Regina Pereira SERVICE DATE: 03/02/18 History Patient presents with: Rash Pain (foot) 67-year-old female with a history of chronic pain is here requesting opiate pain medication. She saw her peanut farmer today for a left foot issue that she has been dealing with and was told that there is no evidence of infection. She asked her peanut farmer for opiate pain medication but was told that she was unable to prescribe. She is in pain management and states that she has Percocet at home but would like a dose of Percocet here because she feels that she needs more than usual. She denies any redness or draining from her wounds. She also has a psoriasis flare on her right leg and would like a prescription for prednisone for this. PAST MEDICAL HISTORY Diagnosis Date - Acquired hypothyroidism - Anxiety - Compression fracture of lumbar vertebra (HCC) - DDD (degenerative disc disease), lumbar - Depression - H/O blood clots - Hypertension - PE (pulmonary thromboembolism) (HCC) - Scoliosis PAST SURGICAL HISTORY Procedure Laterality Date - SECTION HX 1984 - HYSTERECTOMY FAMILY HISTORY Problem Relation Age of Onset - Diabetes Mother - Hypertension Mother - Alcohol/Drug Mother - Cancer Mother - Depression/Anxiety [OTHER] Mother - Alcohol/Drug Father - Diabetes Sister - Hypertension Sister Social History Social History Main Topics - Smoking status: Former Smoker Types: Cigarettes - Smokeless tobacco: Never Used - Alcohol use Yes Comment: rarely - Drug use: No - Sexual activity: Not Currently Partners: Male ALLERGIES No Known Allergies Review of Systems Constitutional: Negative for chills and fever. HENT: Negative for congestion, rhinorrhea, sore throat and trouble swallowing. Eyes: Negative for visual disturbance. Respiratory: Negative for cough and shortness of breath. Cardiovascular: Negative for chest pain and leg swelling. Gastrointestinal: Negative for abdominal pain, diarrhea, nausea and vomiting. Genitourinary: Negative for dysuria and urgency. Musculoskeletal: Negative for back pain and neck pain. Skin: Positive for rash. Negative for pallor. Allergic/Immunologic: Negative for immunocompromised state. Neurological: Negative for dizziness, weakness and headaches. Psychiatric/Behavioral: Negative for confusion and suicidal ideas. Physical Exam BP 137/82 Pulse 87 Temp 96.8 Resp 14 Wt 237 lb (107.5kg) SpO2 97% Physical Exam Constitutional: She is oriented to person, place, and time. She appears well-developed and well-nourished. No distress. HENT: Head: Normocephalic and atraumatic. Nose: Nose normal. Eyes: Conjunctivae are normal. Pupils are equal, round, and reactive to light. Right eye exhibits no discharge. Left eye exhibits no discharge. Neck: Normal range of motion. Neck supple. No tracheal deviation present. No thyromegaly present. Cardiovascular: Normal rate, regular rhythm and normal heart sounds. Exam reveals no friction rub. No murmur heard. Pulmonary/Chest: Effort normal and breath sounds normal. No respiratory distress. She has no wheezes. Abdominal: Soft. Bowel sounds are normal. She exhibits no distension and no mass. There is no tenderness. There is no rebound and no guarding. Musculoskeletal: Normal range of motion. She exhibits no edema, tenderness or deformity. Lymphadenopathy: She has no cervical adenopathy. Neurological: She is alert and oriented to person, place, and time. She has normal reflexes. No cranial nerve deficit. She exhibits normal muscle tone. Coordination normal. Skin: Skin is warm and dry. Rash noted. No erythema. Psoriasis appearing rash on right leg. No evidence of sialitis. Psychiatric: She has a normal mood and affect. Her behavior is normal. Judgment and thought content normal. Diagnostic Testing ED Labs Ordered and Reviewed - No data to display Procedures ED Course / Clinical Impression Clinical Impressions as of Mar 02 1317 Left foot pain Rash and nonspecific skin eruption MDM / Disposition / Plan Her left foot wound looks great. No evidence of infection. No tenderness. No cellulitis on her right leg. She would like a prescription for prednisone 50 mg for 7 days. I offered to treat her with nonnarcotic pain medication and she declined and states that nothing else works for her. I told her that I think it is best if she receives her breakthrough medication from her pain management doctor. I had an extensive discussion with her and offered her many other treatments but she declined. She will call her pain management doctor today and try to get a prescription for breakthrough medication. She was discharged in stable condition. The patient was DISCHARGED: Counseled patient regarding suspected diagnosis AND need for follow-up. Discharged home with verbal and written instructions. They were instructed to return as needed for persistent or worsening symptoms or any new concerns. Condition at time of disposition: stable SIGNATURE: MD Elias Núñez MD 03/02/18 1320 ED NOTE Observed: 03/02/2018 Status: COMPLETED Source: [facility] 12:13 PM [facility] HNO ID: [id number] Author: Mami CamposRn) JODIE King Service: Emergency Medicine Author Type: Registered Nurse Type: ED Notes Filed: 03/02/2018 12:18 PM Note Text: Pt here for psoriasis on her left foot and wound from surgery to remove glass are painful and she wants pain medicine. She states she is on augmentin per her surgeon. PROGRESS Observed: 03/02/2018 Status: COMPLETED Source: [place] 9:56 AM [facility] HNO ID: [id number] Author: Kena Bennett Service: (none) Author Type: Registered Nurse Type: Progress Notes Filed: 03/04/2018 9:39 AM Note Text: PRIMARY CARE COORDINATION QUICK NOTE Provider Action/SYLVAIN Spoke to [employer]bie-[employer] founder and chief strategy officer at [facility]- advised will call patient in for pill count. Patient identified by name and date . Kena Bennett RN CNPTOUTREACH Observed: 03/02/2018 Status: COMPLETED Source: [place] 12:00 AM [facility] Patient Outreach ([facility]) REGINA PEREIRA ([id number]) 1950 F Date Time Provider Department 03/02/18 KENA BENNETT) RUPERT During your visit today, we recorded the following information about you: Kena Bennett RN 03/04/2018 9:39 AM Signed PRIMARY CARE COORDINATION QUICK NOTE Provider Action/FYI Spoke to [employer] founder and chief strategy officer at [facility]- advised will call patient in for pill count. Patient identified by name and date . JODIE Reid RN 03/04/2018 9:39 AM Signed [facility] EMERGENCY DEPARTMENT FOLLOW UP INITIAL CONTACT Provider Action/FYI: Spoke to patient who states had surgery on foot 2 1/2 weeks ago due to having glass in foot-states appt with Dr. madsen peanut farmer at [facility]. Initial contact with patient post discharge, spoke to patient. Patient identified by name and date : YES SUMMARY: -Patient discharged from [facility] ED on 03/02/18 after going to [facility] the same day and being seen. -Follow up appointment on 03/[address] Madsen (sp?). -Medication review done . -Presented with: Rash and foot pain CONCERNS: Amount of prednisone patient has been on the past two years, despite education and scheduling with derm-has seen two this summer NEW MEDICATIONS: Prednisone 50mg MEDS HELD/DISCONTINUED: none BRIEF ED COURSE: Per note: Patient presents with: Rash Pain (foot) ? ? 67-year-old female with a history of chronic pain is here requesting opiate pain medication. She saw her peanut farmer today for a left foot issue that she has been dealing with and was told that there is no evidence of infection. She asked her peanut farmer for opiate pain medication but was told that she was unable to prescribe. She is in pain management and states that she has Percocet at home but would like a dose of Percocet here because she feels that she needs more than usual. She denies any redness or draining from her wounds. She also has a psoriasis flare on her right leg and would like a prescription for prednisone for this. ? 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 PREDNISONE 50 MG TABLET Take 1 tablet by mouth once d* RISPERIDONE 0.5 MG TABLET Take 1 tablet by mouth twice * SERTRALINE 100 MG TABLET Take 1 tablet by mouth once d* LEVOTHYROXINE 50 MCG TABLET Take 1 tablet by mouth once d* RIVAROXABAN 15 MG TABLET Take one tab by mouth twice d* Patient not taking: Reported on 12/15/2017 X RIVAROXABAN 20 MG TABLET Take 1 tablet by mouth daily * LISINOPRIL 20 MG-HYDROCHLOROT* Take 1 tablet by mouth once d* LISINOPRIL 10 MG-HYDROCHLOROT* Take 1 tablet by mouth once d* Problem List As Of Date 03/02/2018 Noted Resolved Anxiety [F41.9] Compression fracture of lumbar vertebra (HCC) [* Depression [F32.9] DDD (degenerative disc disease), lumbar [M51.36] H/O blood clots [Z86.718] Hypertension [I10] Scoliosis [M41.9] Encounter Status:Closed by KENA BENNETT RN on 03/04/18 UA Collected: 03/01/2018 Status: F Source: [facility] 1:05 PM [facility] REPOSITORY TYPE CODE TESTS RESULT OUT OF RANGE REFERENCE UNITS LAB SPCUA(MARY NC) UA Specimen Type Clean Catch LAB CLRUA(MARY NC) UA Color Straw LAB APPUA(MARY NC) UA Appear Unknown Hazy LAB SGUA(LOIN C) UA Spec Unknown Grav 1.010 LAB GLUA(LOIN Negative mg/dL C) UA Glucose Negative LAB BILUA(MARY Neg-Trace NC) UA Bili Negative LAB KETUA(MARY Neg-Trace mg/dL NC) UA Ketones Negative LAB BLDUA(MARY Neg-Trace NC) UA Blood Trace LAB PHUA(LOIN 5.0 - 8.0 C) UA pH 7.0 LAB PROUA(MARY Negative mg/dL NC) UA Protein Negative LAB UROUA(MARY E.U./dL NC) UA Urobilinogen 0.2 LAB NITUA(MARY Negative NC) UA Nitrite Negative LAB LEUUA(MARY Negative NC) UA Leuk Est Negative Performed By: #### UAMIC, UA #### [facility] [address] [place] [id number] UAMIC Collected: 03/01/2018 Status: F Source: [facility] 1:05 PM [facility] REPOSITORY TYPE CODE TESTS RESULT OUT OF REFERENCE UNITS RANGE LAB RBCUA(LOIN 0-2 /hpf C) UA RBC 0-2 LAB WBCUA(LOIN 0-5 /hpf C) UA WBC 0-2 LAB EPIUA(LOIN 0-20 /hpf C) UA Squam Epithelial 0-2 Performed By: #### UAMIC, UA #### [address] [address] [address] ABD/PELVIS W/ IV Observed: 03/01/2018 Status: F Source: [facility] CONTRAST ONLY 11:31 AM [facility] REPOSITORY ORIGINAL CT ABD/PELVIS W/ IV CONTRAST ONLY This exam was performed according to our departmental dose optimization program, and includes the following measures where applicable: automated exposure control, adjustment of the mAs and/or kVp accord ing to patient size and/or exam, and an iterative reconstruction algorithm. CLINICAL STATEMENT: Abdominal pain. COMPARISON: Lumbar spine radiographs 04/13/2017 FINDINGS: Lung bases are unremarkable. There is mild atherosclerotic disease in the aorta with no aneurysm. Liver, gallbladder and biliary tree, spleen, pancreas, stomach and duodenum, adrenal glands and large and small bowel loops are unremarkable in appearance. There is minimal bilateral renal cyst formation. No visible appendix. The uterus is surgically absent. No acute bone findings. There is a severe levoscoliosis of the lumbar spine and a stable mild to moderate L1 compression deformity. IMPRESSION: No visible acute inflammatory process in the abdomen or pelvis. Interpreted By: Alexis Portillo MD Preliminary Report By: Alexis Portillo MD Electronically Signed By: Alexis Portillo MD Dictated Date: 03/01/2018 11:54:31 AM Prelim Date: 03/01/2018 11:54:31 AM Sign Date: 03/01/2018 11:58:48 AM LIP Collected: 03/01/2018 Status: F Source: [facility] 10:48 AM [facility] REPOSITORY TYPE CODE TESTS RESULT OUT OF REFERENCE UNITS RANGE LAB LIP(LOINC) 73-393 U/L Lipase Level 151 Performed By: #### CBC, ADIFF, LIP, GFR, ANEU, CMP #### [facility] [address] [place] [address] .GFR Collected: 03/01/2018 Status: F Source: [facility] 10:48 AM [facility] REPOSITORY TYPE CODE TESTS RESULT OUT OF REFERENCE UNITS RANGE LAB GFRAA(LOINC ml/min/1.73 ) sqm GFR >60 Cymro Result Comment: GFR Population mean for , Non- Americans Ages 20-29 = 116 mL/min/1.73 sq.m. Ages 30-39 = 107 mL/min/1.73 sq.m. Ages 40-49 = 99 mL/min/1.73 sq.m. Ages 50-59 = 93 mL/min/1.73 sq.m. Ages 60-69 = 85 mL/min/1.73 sq.m. Ages 70+ = 75 mL/min/1.73 sq.m. Chronic Kidney Disease: Less than 60 mL/min/1.73 square meters End Stage Renal Disease: Less than 15 mL/min/1.73 square meters LAB GFRNO(LOINC) ml/min/1.73sqm GFR Non- >60 Result Comment: GFR Population mean for , Non- Americans Ages 20-29 = 116 mL/min/1.73 sq.m. Ages 30-39 = 107 mL/min/1.73 sq.m. Ages 40-49 = 99 mL/min/1.73 sq.m. Ages 50-59 = 93 mL/min/1.73 sq.m. Ages 60-69 = 85 mL/min/1.73 sq.m. Ages 70+ = 75 mL/min/1.73 sq.m. Chronic Kidney Disease: Less than 60 mL/min/1.73 square meters End Stage Renal Disease: Less than 15 mL/min/1.73 square meters Performed By: #### CBC, ADIFF, LIP, GFR, ANEU, CMP #### [place] [address] CMP Collected: 03/01/2018 Status: F Source: [facility] 10:48 AM [facility] Order Comment: hemolyzed-called for recollect to red team 03/01/2018 10:43:27 EDT TYPE CODE TESTS RESULT OUT OF REFERENCE UNITS RANGE LAB GLU(LOINC) 82-115 mg/dL Glucose Level 89 LAB NA(LOINC) 136-145 mEq/L Sodium Level 136 LAB K(LOINC) 3.5-5.0 mEq/L Potassium Level 3.9 LAB CL(LOINC) 98-110 mEq/L Chloride 100 LAB CO2(LOINC) 22-32 mEq/L CO2 29 LAB EBAL(LOINC 4.0-15.0 mEq/L ) Electrolyte Balance 7.0 LAB BUN(LOINC) 8.0-22.0 mg/dL BUN 16.0 LAB CRE(LOINC) 0.50-1.20 mg/dL Creatinine Lvl (s) 0.73 LAB BC(LOINC) 10.0-22.0 ratio BUN/Creatinine 21.9 Ratio LAB CA(LOINC) 8.4-10.1 mg/dL Calcium Lvl 8.6 LAB PROT(LOINC 6.0-8.5 G/dL ) Total Protein 6.3 LAB ALB(LOINC) 3.2-4.8 G/dL Albumin Level 3.3 LAB GLB(LOINC) 1.5-3.8 G/dL Globulin 3.0 LAB AG(LOINC) 0.9-1.6 ratio A/G Ratio 1.1 LAB BILT(LOINC 0.2-1.2 mg/dL ) Bili Total 0.6 LAB AP(LOINC) 38-126 U/L Alk Phos 53 LAB AST(LOINC) 8-34 U/L AST/SGOT 32 LAB ALT(LOINC) 10-49 U/L ALT/SGPT High 56 Performed By: #### CBC, ADIFF, LIP, GFR, ANEU, CMP #### [place] [address] CBC Collected: 03/01/2018 Status: F Source: [facility] 10:35 AM [facility] TYPE CODE TESTS RESULT OUT OF REFERENCE UNITS RANGE LAB WBC(LOINC) 4.50-10.80 10 3/mcL WBC 7.70 LAB RBCCT(LOINC 4.10-5.30 10 6/mcL ) Low RBC 4.08 LAB HGB(LOINC) 12.0-16.0 G/dL Hgb 13.2 LAB HCT(LOINC) 34.0-46.0 % Hct 40.4 LAB MCV(LOINC) 80.0-99.0 fL MCV 99.0 LAB MCH(LOINC) 27.0-33.0 pg MCH 32.4 LAB MCHC(LOINC) 32.0-36.0 G/dL MCHC 32.7 LAB RDW(LOINC) 11.5-15.5 % High RDW 17.0 LAB PLT(LOINC) 150-450 10 3/mcL Platelet 337 LAB MPV(LOINC) 6.6-10.5 fL Low MPV 6.4 Performed By: #### CBC, ADIFF, LIP, GFR, ANEU, CMP #### [place] [id number] .AUTO DIFF Collected: 03/01/2018 Status: F Source: [facility] 10:35 AM [facility] REPOSITORY TYPE CODE TESTS RESULT OUT OF REFERENCE UNITS RANGE LAB LUIS(LOINC) 50.0-75.0 % High Neutrophil % 78.7 LAB LYM(LOINC) 20.0-40.0 % Low Lymphocyte % 14.6 LAB MON(LOINC) 2.0-13.0 % Monocyte % 5.9 LAB EO(LOINC) 0.0-6.0 % Eosinophil % 0.4 LAB BAS(LOINC) 0.0-2.5 % Basophil % 0.4 LAB ABLYM(LOIN 0.90-4.32 10 3/mcL C) Lymphocyte, 1.10 Absolute LAB LAVINIA(LOINC 0.09-1.40 10 3/mcL ) Monocyte, 0.50 Absolute LAB AEOS(LOINC 0.00-0.65 10 3/mcL ) Eosinophil, 0.00 Absolute LAB ABAS(LOINC 0.00-0.27 10 3/mcL ) Basophil, 0.00 Absolute Performed By: #### CBC, ADIFF, LIP, GFR, ANEU, CMP #### [place] [address] .NEUABS Collected: 03/01/2018 Status: F Source: [facility] 10:35 AM [facility] REPOSITORY TYPE CODE TESTS RESULT OUT OF REFERENCE UNITS RANGE LAB ANEU(LOINC) 2.25-8.10 10 3/mcL Neutrophil, 6.10 Absolute Performed By: #### CBC, ADIFF, LIP, GFR, ANEU, CMP #### [place] [address] OBSOLETE Observed: 02/28/2018 Status: COMPLETED Source: [place] 12:00 AM [facility] OTHER CAMPUS REPOSITORY Refill ([facility]) RANDALLREGINA Jose ([id number]) 1950 F Date Time Provider Department 02/28/18 NO HORTON During your visit today, we recorded the following information about you: Svetlana Benites LPN 03/03/2018 2:24 PM Signed Pharmacy faxed requesting the following refill Pending Prescriptions Disp Refills RIVAROXABAN 20 MG TABLET 90 tablet 1 Sig: Take 1 tablet by mouth daily with dinner. EDOUARD: No Allergies: Patient has no known allergies. (home) [phone] (cell) Last Visit date: 12/15/2017 Future appointment: Visit date not found The patients preferred pharmacy has been captured for this encounter? yes Request is for script(s) to be escript to pharmacy. OARRS Report for this patient was checked and validated:Not applicable Svetlana Benites LPN Allergies As of Date: 02/28/2018 (No Known Allergies) Date Reviewed: 02/02/2018 Reviewed by: Clair (Rn) JODIE Lewis - Fully Assessed Reason for Visit: Refill Request [94] Order(s):rivaroxaban (XARELTO) 20 mg tabletTake 1 tablet by mouth daily with dinner.Disp: 90 tabletRfl: 1 Prescriptions as of 02/28/2018 Sig: RIVAROXABAN 20 MG TABLET Take 1 tablet by mouth daily * RISPERIDONE 0.5 MG TABLET Take 1 tablet by mouth twice * SERTRALINE 100 MG TABLET Take 1 tablet by mouth once d* LEVOTHYROXINE 50 MCG TABLET Take 1 tablet by mouth once d* RIVAROXABAN 15 MG TABLET Take one tab by mouth twice d* Patient not taking: Reported on 12/15/2017 LISINOPRIL 20 MG-HYDROCHLOROT* Take 1 tablet by mouth once d* LISINOPRIL 10 MG-HYDROCHLOROT* Take 1 tablet by mouth once d* Problem List As Of Date 02/28/2018 Noted Resolved Anxiety [F41.9] Compression fracture of lumbar vertebra (HCC) [* Depression [F32.9] DDD (degenerative disc disease), lumbar [M51.36] H/O blood clots [Z86.718] Hypertension [I10] Scoliosis [M41.9] Prescriptions ordered this encounter Disp Refills Start End RIVAROXABAN 20 MG TABLET 90 t* 1 03/03/2018 Route: ORAL Sig: Take 1 tablet by mouth daily with dinner. Medications Discontinued During This Encounter rivaroxaban (XARELTO) 20 mg tablet 30 t* 2 11/18/2017 03/03/2018 Route: ORAL Sig: Take 1 tablet by mouth daily with dinner. Disc: Reason for discontinue is not on file. Encounter Status:Closed by NO HORTON on 03/03/18 PROGRESS Observed: 02/20/2018 Status: COMPLETED Source: [place] 12:00 PM [facility] REPOSITORY HNO ID: [id number] Author: Kena Peterson) Dinorah Service: (none) Author Type: Registered Nurse Type: Progress Notes Filed: 02/20/2018 12:03 PM Note Text: PRIMARY CARE COORDINATION QUICK NOTE Provider Action/FYI [facility] called states patient has a prescription for prednisone 50mg x 7 days-apparently was in ED this morning-patient left with prescription as [facility] pharmacist was questioning prednisone script and education re: side effects of frequent high doses of prednisone. Contacted pain management (again) and left another message requesting a return call re patient continuity of care and plan of care. Patient identified by name and date . Kena Bennett RN CNPTOUTREACH Observed: 02/20/2018 Status: COMPLETED Source: [place] 12:00 AM [facility] REPOSITORY Patient Outreach ([facility]) REGINA PEREIRA ([id number]) 1950 F Date Time Provider Department 02/20/18 KENA BENNETT) RUPERT During your visit today, we recorded the following information about you: Kean Bennett RN 02/20/2018 12:03 PM Signed PRIMARY CARE COORDINATION QUICK NOTE Provider Action/FYI [facility] called states patient has a prescription for prednisone 50mg x 7 days-apparently was in ED this morning-patient left with prescription as [facility] pharmacist was questioning prednisone script and education re: side effects of frequent high doses of prednisone. Contacted pain management (again) and left another message requesting a return call re patient continuity of care and plan of care. Patient identified by name and date . 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] Prescriptions as of 02/20/2018 Sig: RISPERIDONE 0.5 MG TABLET Take 1 tablet by mouth twice * SERTRALINE 100 MG TABLET Take 1 tablet by mouth once d* LEVOTHYROXINE 50 MCG TABLET Take 1 tablet by mouth once d* RIVAROXABAN 15 MG TABLET Take one tab by mouth twice d* Patient not taking: Reported on 12/15/2017 RIVAROXABAN 20 MG TABLET Take 1 tablet by mouth daily * LISINOPRIL 20 MG-HYDROCHLOROT* Take 1 tablet by mouth once d* LISINOPRIL 10 MG-HYDROCHLOROT* Take 1 tablet by mouth once d* Problem List As Of Date 02/20/2018 Noted Resolved Anxiety [F41.9] Compression fracture of lumbar vertebra (HCC) [* Depression [F32.9] DDD (degenerative disc disease), lumbar [M51.36] H/O blood clots [Z86.718] Hypertension [I10] Scoliosis [M41.9] Encounter Status:Closed by KENA BENNETT RN on 02/20/18 PROGRESS Observed: 02/18/2018 Status: COMPLETED Source: [place] 1:33 PM [facility] OTHER [facility] REPOSITORY O ID: [id number] Author: Kena Peterson) Dinorah Service: (none) Author Type: Registered Nurse Type: Progress Notes Filed: 02/18/2018 1:34 PM Note Text: PRIMARY CARE COORDINATION QUICK NOTE Provider Action/FYI Left a message at [facility] for co founder and chief strategy officer to return call. Patient identified by name and date . Kena Bennett RN CNPTOUTREA Observed: 02/18/2018 Status: COMPLETED Source: [place] 12:00 AM [facility] REPOSITORY Patient Outreach ([facility]) REGINA PEREIRA ([id number]) 1950 F Date Time Provider Department 02/18/18 KENA BENNETT (JODIE) [facility] During your visit today, we recorded the following information about you: Kena Bennett RN 02/18/2018 1:34 PM Signed PRIMARY CARE COORDINATION QUICK NOTE Provider Cleo/SYLVAIN Left a message at [facility] for co founder and chief strategy officer to return call. Patient identified by name and date . Kena Bennett RN Allergies As of Date: 02/18/2018 (No Known Allergies) Date Reviewed: 02/02/2018 Reviewed by: Clair CamposRn) JODIE Lewis - Fully Assessed Prescriptions as of 02/18/2018 Sig: RISPERIDONE 0.5 MG TABLET Take 1 tablet by mouth twice * SERTRALINE 100 MG TABLET Take 1 tablet by mouth once d* LEVOTHYROXINE 50 MCG TABLET Take 1 tablet by mouth once d* RIVAROXABAN 15 MG TABLET Take one tab by mouth twice d* Patient not taking: Reported on 12/15/2017 RIVAROXABAN 20 MG TABLET Take 1 tablet by mouth daily * LISINOPRIL 20 MG-HYDROCHLOROT* Take 1 tablet by mouth once d* LISINOPRIL 10 MG-HYDROCHLOROT* Take 1 tablet by mouth once d* Problem List As Of Date 02/18/2018 Noted Resolved Anxiety [F41.9] Compression fracture of lumbar vertebra (HCC) [* Depression [F32.9] DDD (degenerative disc disease), lumbar [M51.36] H/O blood clots [Z86.718] Hypertension [I10] Scoliosis [M41.9] Encounter Status:Closed by KENA BENNETT RN on 02/18/18 SURG Observed: 02/13/2018 Status: F Source: [facility] 1:34 PM [facility] Patient: REGINA PEREIRA SPECIMEN: [id number] Collection Date: 02/13/181333 Received: 02/13/18 Status: SUSHANT Jeffers DrMariangel: Bonnie Hale DPM Ph# Othr. Dr.: No Family Physician given Material for Examination: A LEFT HEEL TISSUE PRE-OP DIAGNOSIS: FOREIGN BODY LEFT HEEL POST-OP DIAGNOSIS: SAME SURGICAL PROCEDURE: REMOVAL FOREIGN BODY LEFT HEEL DIAGNOSIS A. Left heel tissue: - Fragments of skin and subcutaneous tissue with acute and chronic inflammation, focal necrosis and microabscess formation and polarizable foreign body material. GROSS DESCRIPTION The specimen is received in formalin and labeled with the patient's name, ID and designated left heel tissue, are multiple irregular fragments of possible white-orellana skin and soft tissue aggregating to 0.7 x 0.5 x 0.3 cm. No other tissue or foreign material is present in the container. Entirely submitted in cassette A1. MICROSCOPIC DESCRIPTION Two Brigid stained slides examined. COPIES TO: Bonnie Hale DPM No Family Physician given Signed Verified/Reviewed by RICARDO SALDANA M.D. 02/16/18 This dictation was created using voice recognition software. Phonetic and/or minor grammatical errors may exist. [facility] NAME: REGINA PEREIRA Pathology and Laboratory Medicine UNIT#: [id number] LOC: HMariangelCO Servicing Manager: Ricardo Saldana M.D. [id number] RO[facility]BED: [facility] : 50 AGE/SEX: 67/F ORD.Bonnie Linder DPM END OF REPORT OR Observed: 02/13/2018 Status: UNK Source: [facility] 10:45 AM [facility] REPOSITORY DATE OF SERVICE: 02/13/2018 PREOPERATIVE DIAGNOSIS: Left foot foreign body. POSTOPERATIVE DIAGNOSIS: Left foot foreign body. OPERATION: Excision of left foot foreign body. SURGEON: Bonnie Hale DPM ANESTHESIA: MAC with local. HEMOSTASIS: Pneumatic ankle tourniquet. ESTIMATED BLOOD LOSS: Less than 30 mL. MATERIALS: None. COMPLICATIONS: None. FINDINGS: Consistent with preoperative diagnosis. INDICATIONS: This is a 67-year-old female who presents to [facility] for elective surgery consisting of the procedure above. Complaining of persistent pain to the left foot due to the abnormal plantar mass located within the foot. The nature of the problem, anticipated procedure, postoperative recovery, risks, complications including but not limited to numbness, CRPS, tingling, over- or undercorrection, problems with healing of soft tissue, persistent pain and disability have been explained to the patient in detail. All questions have been answered to the patient's satisfaction. No promises or guarantees have been given. DESCRIPTION OF PROCEDURE: The patient was brought into the operating room and was placed on the operating table in supine position. Pneumatic ankle tourniquet was then placed on the patient's left ankle. Following IV sedation, local anesthesia was obtained utilizing 10 mL of 1:1 mixture of 1% lidocaine plain and 0.5% Marcaine plain. The foot was then scrubbed, prepped and draped in the usual aseptic manner. The foot was then elevated, and the tourniquet was inflated. Attention was then directed to the plantar left foot where a 1-cm opening was visualized to the plantar aspect of the heel. The margins were demarcated and incised sharply to the level of the superficial fascia. Upon immediate incision, no foreign body was located. The superficial fascia along the skin was sharply and carefully dissected free and passed from the operating table and sent to Pathology and Microbiology. The remaining area was investigated for any abnormal foreign body or tissue, and it was found that the area was clean of any abnormalities. The area [facility] PATIENT NAME: REGINA PEREIRA Re Mera MEDICAL REC #: [id number] [place] [address] ADMIT DATE: DISCHARGE DATE: OPERATIVE REPORT ATTENDING PHY: Bonnie Hale DPM was then flushed with copious amounts of sterile saline. The incision site was then closed with Prolene and dressed with Adaptic, 4 x 4, Kerlix. The tourniquet was then deflated, and immediate hyperemia returned to all digits. The foot was then Mane-wrapped. The patient tolerated the procedure well with vital signs stable and vascular status intact to the left foot. Bonnie Hale DPM [id number] SSI File#: [id number] Verified/Reviewed by 02/20/18 0801 JENISE [facility] PATIENT NAME: REGINA PEREIRA MarizaChuck Re Mera MEDICAL REC #: [id number] [place] [address] ADMIT DATE: DISCHARGE DATE: OPERATIVE REPORT ATTENDING PHY: Bonnie Hale DPM CT LOWER EXTREMITY WO Observed: 02/11/2018 Status: F Source: [facility] 6:[address] [facility] CT LOWER EXTREMITY WO CON LT Ordering Physician: Bonnie Hale DPM 02/11/2018 10:[address] LEFT LOWER EXTREMITY WITHOUT CONTRAST WITH MULTIPLANAR AND 3-D RECONSTRUCTIONS: Clinical Statement: Foreign body of left foot Comparison: None available TECHNIQUE: 1 mm contiguous transaxial images of the left foot were obtained without the administration of IV contrast. Coronal and sagittal reconstructions were reviewed by the radiologist. 3-D reconstructions were viewed and reconstructed on a separate B[employer]o workstation. FINDINGS: There is no acute fracture or dislocation. A radiopaque marker is noted at the site of concern at the plantar aspect of the calcaneus. There is no associated retained radiopaque foreign body. There is minimal induration of the subcutaneous fat at the plantar aspect of the calcaneus. Incidental note is made of mild thickening of the medial bundle of the plantar fascia to punctate calcifications. There is no significant enthesophyte formation. The Achilles is not thickened. Joint spaces in the hind and midfoot are normally approximated. Mild degenerative changes are noted at the first metatarsal phalangeal joint. There is no joint effusion. Allowing for the inherent limitations of CT, tendons and ligaments are grossly intact. There is thickening of the peroneus brevis with calcification noted near the level of the lateral malleolus. Calcification/ossification is noted in the peroneus longus near the level of the mid foot. The posterior flexor tendons and anterior extensor tendons are normal in course and caliber. IMPRESSION: Minimal induration of the subcutaneous fat at the plantar aspect of the calcaneus. No retained radiopaque foreign body. Stat report was provided at time of dictation. Dictated by [employer] Coordinator: Kj Valerio DO Reviewed and Signed by: Nissa Pereira MD ---- Electronic Signature on File ---- Signed By: Nissa Pereira MD [email or web address] Dictated: 02/11/2018 10:50 AM Signed: 02/11/2018 11:01 AM Reported By: NISSA PEREIRA M.D. Signed By: NISSA PEREIRA M.D. PROGRESS Observed: 02/09/2018 Status: COMPLETED Source: [place] 10:01 AM [facility] REPOSITORY HNO ID: [id number] Author: Kena Peterson) Dinorah Service: (none) Author Type: Registered Nurse Type: Progress Notes Filed: 02/11/2018 11:00 AM Note Text: PRIMARY CARE COORDINATION QUICK NOTE Provider Action/FYI Attempted to reach patient re multiple ED visits 01/28 [facility] N/V pepcid/phenergan 02/02 [facility] Psoriasis given prednisone 40mgQD x 20 days 02/08 [facility] pain-psoriasis states out of percocet (last fill 01/26 #140) and prescribed prednisone 40mg QD x 5days Ring no answer at home phone number Left message for co founder and chief strategy officer at [facility] [phone] Danelle Roberson to return call to [facility] Patient identified by name and date . Kena Bennett RN CNPTOUTREACH Observed: 02/09/2018 Status: COMPLETED Source: [place] 12:00 AM [facility] REPOSITORY Patient Outreach ([facility]) REGINA PEREIRA ([id number]) 1950 F Date Time Provider Department 02/09/18 KENA BENNETT (JODIE) [facility] During your visit today, we recorded the following information about you: Kena Bennett RN 02/11/2018 11:00 AM Signed PRIMARY CARE COORDINATION QUICK NOTE Provider Action/SYLVAIN Attempted to reach patient re multiple ED visits 01/28 [facility] N/V pepcid/phenergan 7/2 [facility] Psoriasis given prednisone 40mgQD x 20 days 78 [facility] pain-psoriasis states out of percocet (last fill 01/26 #140) and prescribed prednisone 40mg QD x 5days Ring no answer at home phone number Left message for co founder and chief strategy officer at [facility] [phone] Danelle Da to return call to [facility] Patient identified by name and date . 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] Prescriptions as of 02/09/2018 Sig: RISPERIDONE 0.5 MG TABLET Take 1 tablet by mouth twice * SERTRALINE 100 MG TABLET Take 1 tablet by mouth once d* LEVOTHYROXINE 50 MCG TABLET Take 1 tablet by mouth once d* RIVAROXABAN 15 MG TABLET Take one tab by mouth twice d* Patient not taking: Reported on 12/15/2017 RIVAROXABAN 20 MG TABLET Take 1 tablet by mouth daily * LISINOPRIL 20 MG-HYDROCHLOROT* Take 1 tablet by mouth once d* LISINOPRIL 10 MG-HYDROCHLOROT* Take 1 tablet by mouth once d* Problem List As Of Date 02/09/2018 Noted Resolved Anxiety [F41.9] Compression fracture of lumbar vertebra (HCC) [* Depression [F32.9] DDD (degenerative disc disease), lumbar [M51.36] H/O blood clots [Z86.718] Hypertension [I10] Scoliosis [M41.9] Encounter Status:Closed by KENA BENNETT RN on 02/11/18 XR FOOT MINIMUM 3 Observed: 02/08/2018 Status: F Source: [facility] VIEWS LEFT 8:19 AM [facility] REPOSITORY ORIGINAL XR FOOT MINIMUM 3 VIEWS LEFT CLINICAL STATEMENT: pain evaluate for foreign body in the heel. COMPARISON: 08/07/2017. FINDINGS: A hallux valgus noted with degenerative change at the 1st metatarsophalangeal joint. No acute fracture visualized. Mild spurring seen in the mid foot. There is no radiopaque foreign body at the site of concern. IMPRESSION: No radiopaque foreign body at the site of concern. Interpreted By: Kj Edmonds MD Preliminary Report By: Kj Edmonds MD Electronically Signed By: Kj Edmonds MD Dictated Date: 02/08/2018 8:28:51 AM Prelim Date: 02/08/2018 8:28:51 AM Sign Date: 02/08/2018 8:30:46 AM ED PROV NOTE Observed: 02/02/2018 Status: COMPLETED Source: [place] 3:37 PM CLINIC OTHER CAMPUS REPOSITORY [facility] ID: [id number] Author: Hank Gonzalez MD Service: Emergency Medicine Author Type: Physician Type: ED Provider Notes Filed: 02/02/2018 3:40 PM Note Text: ED Provider Note Patient Name: Regina Pereira SERVICE DATE: 02/02/18 History Patient presents with: LESION, SKIN Chief complaint: Requesting prednisone prescription History of present illness: Patient has a history of psoriasis. No new issues, but her symptoms have been worsening. No redness, warmth, or infection. She has tried prednisone in the past, and it helps greatly. She is requesting a burst therapy for this. Patient denies any history of diabetes or elevated blood sugars. She has a long-standing history of back pain and goes to pain management. PAST MEDICAL HISTORY Diagnosis Date - Acquired hypothyroidism - Anxiety - Compression fracture of lumbar vertebra (HCC) - DDD (degenerative disc disease), lumbar - Depression - H/O blood clots - Hypertension - PE (pulmonary thromboembolism) ([facility]) - Scoliosis PAST SURGICAL HISTORY Procedure Laterality Date - SECTION HX 1984 - HYSTERECTOMY FAMILY HISTORY Problem Relation Age of Onset - Diabetes Mother - Hypertension Mother - Alcohol/Drug Mother - Cancer Mother - Depression/Anxiety [OTHER] Mother - Alcohol/Drug Father - Diabetes Sister - Hypertension Sister Social History Social History Main Topics - Smoking status: Former Smoker Types: Cigarettes - Smokeless tobacco: Never Used - Alcohol use Yes Comment: rarely - Drug use: No - Sexual activity: Not Currently Partners: Male ALLERGIES No Known Allergies Review of Systems Constitutional: Negative for chills and fever. Musculoskeletal: Positive for back pain. Negative for arthralgias and myalgias. Skin: Positive for rash. Negative for color change, pallor and wound. Neurological: Negative for weakness and numbness. All other systems reviewed and are negative. Physical Exam BP 155/85 Pulse 97 Temp (Src) 98.2 (Temporal Artery) Resp 18 Ht 5' 9 (1.75m) Wt 245 lb (111.1kg) SpO2 98% BMI 36.16 kg/(m2). Physical Exam Constitutional: She appears well-developed and well-nourished. No distress. HENT: Head: Normocephalic and atraumatic. Eyes: Conjunctivae and EOM are normal. Right eye exhibits no discharge. Left eye exhibits no discharge. Pulmonary/Chest: Effort normal. No respiratory distress. Musculoskeletal: Normal range of motion. She exhibits no edema or deformity. Skin: Skin is warm and dry. Rash (Scaly plaques, primarily over her lower extremity. No surrounding erythema. No drainage or discharge.) noted. She is not diaphoretic. No erythema. No pallor. Psychiatric: She has a normal mood and affect. Her behavior is normal. Judgment and thought content normal. Vitals reviewed. Diagnostic Testing ED Labs Ordered and Reviewed - No data to display Procedures Medical Decision Making MDM Patient was treated with a burst therapy of prednisone. She was advised follow-up with her pain doctor for her ongoing back pain. She may return if she has worsening or new back pain symptoms. ED Course / Clinical Impression Clinical Impressions as of Feb 02 1539 Psoriasis Plan The patient was DISCHARGED: Counseled patient regarding suspected diagnosis AND need for follow-up. Discharged home with verbal and written instructions. They were instructed to return as needed for persistent or worsening symptoms or any new concerns. Condition at time of disposition: stable SIGNATURE: MD Hank Tovar MD 02/02/18 1540 ED NOTE Observed: 02/02/2018 Status: COMPLETED Source: [place] 2:47 PM CLINIC OTHER [facility] REPOSITORY HNO ID: [id number] Author: Clair CamposRn) JODIE Lewis Service: Emergency Medicine Author Type: Registered Nurse Type: ED Notes Filed: 02/02/2018 2:47 PM Note Text: Wants prednisone for her psoriasis CNCO Observed: 01/27/2018 Status: COMPLETED Source: [place] 12:00 AM CLINIC OTHER CAMPUS REPOSITORY Letter Text No Horton MD, [facility] [address], [address] [place] [address] (fax) Member of [facility] and [facility] - Equal Opportunity Employer 01/27/2018 Regina Pereira [address] [facility] [address] We missed seeing you for your scheduled appointment with Dr.Debra Horton on 01/26/18. Our goal is to offer the best possible care to our patients, so we are concerned when you are unable to keep a scheduled appointment. Please call us at [phone] so that we can reschedule your appointment for a day and time that will work for you. If you find it difficult to keep your appointment, please notify our office at least 24 hours in advance so that we may reschedule your appointment. We are glad that you have chosen [facility] for your primary care needs and hope to continue serving you in the future. Sincerely, [facility]. 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 And c/o of psoriasis/rash. She did see a clerical warehouseman but wants a second opinion, as she did not agree with treatment plan, according to derm notes patient told provider she has not had prednisone in 6 months. So she wanted to keep the appt PCC scheduled for the 21 of January. Initial contact with patient post discharge, spoke to patient. Patient identified by name and date : YES SUMMARY: -Patient discharged from [place] ED on 01/08/28. -Follow up appointment on 01/21 derm and 01/26 PCP. -Medication review done. -Presented with: rash and back pain CONCERNS: Patient c/o back pain and being out of percocet despite filling 140 tabs on 12/27 per [facility]. NEW MEDICATIONS: Prescribed prednisone by ED MEDS HELD/DISCONTINUED: none BRIEF ED COURSE: See above notation Kena Bennett RN CNPTOUTREACH Observed: 01/13/2018 Status: COMPLETED Source: [place] 12:00 AM [facility] REPOSITORY Patient Outreach ([facility]) REGINA PEREIRA ([id number]) 1950 F Date Time Provider Department 01/13/18 KENA BENNETT (RN) RUPERT During your visit today, we recorded the following information about you: Kena Bennett RN 01/13/2018 9:24 AM Signed [facility] REPAIR[facility] EMERGENCY DEPARTMENT FOLLOW UP INITIAL CONTACT Provider Action/FYI: Patient in [place] ED 01/07 due to Back pain-she is out of her percocet-was filled 12/27 140 tabs dispensed. And c/o of psoriasis/rash. She did see a clerical warehouseman but wants a second opinion, as she did not agree with treatment plan, according to derm notes patient told provider she has not had prednisone in 6 months. So she wanted to keep the appt PCC scheduled for the 21 of January. Initial contact with patient post discharge, spoke to patient. Patient identified by name and date : YES SUMMARY: -Patient discharged from [place] ED on 01/08/28. -Follow up appointment on 01/21 derm and 01/26 PCP. -Medication review done. -Presented with: rash and back pain CONCERNS: Patient c/o back pain and being out of percocet despite filling 140 tabs on 12/27 per [facility]. 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 Follow Up [4208] Prescriptions as of 01/13/2018 Sig: RISPERIDONE 0.5 MG TABLET Take 1 tablet by mouth twice * SERTRALINE 100 MG TABLET Take 1 tablet by mouth once d* LEVOTHYROXINE 50 MCG TABLET Take 1 tablet by mouth once d* RIVAROXABAN 15 MG TABLET Take one tab by mouth twice d* Patient not taking: Reported on 12/15/2017 RIVAROXABAN 20 MG TABLET Take 1 tablet by mouth daily * LISINOPRIL 20 MG-HYDROCHLOROT* Take 1 tablet by mouth once d* LISINOPRIL 10 MG-HYDROCHLOROT* Take 1 tablet by mouth once d* Problem List As Of Date 01/13/2018 Noted Resolved Anxiety [F41.9] Compression fracture of lumbar vertebra (HCC) [* Depression [F32.9] DDD (degenerative disc disease), lumbar [M51.36] H/O blood clots [Z86.718] Hypertension [I10] Scoliosis [M41.9] Encounter Status:Closed by KENA BENNETT RN on 01/13/18 XR CHEST 2 VIEWS Observed: 01/11/2018 Status: F Source: [facility] 8:54 AM [facility] REPOSITORY ORIGINAL XR CHEST 2 VIEWS CLINICAL STATEMENT: pain. COMPARISON: Chest radiograph from acute abdominal series 11/09/2017 FINDINGS: The heart size is mildly prominent. There is no vascular congestion or focal infiltrate. Increased opacity overlying the lung bases presumably relates to overlying soft tissue. IMPRESSION: No acute process. Interpreted By: Farida Mitchell MD Preliminary Report By: Farida Mitchell MD Electronically Signed By: Farida Mitchell MD Dictated Date: 01/11/2018 9:04:27 AM Prelim Date: 01/11/2018 9:04:27 AM Sign Date: 01/11/2018 9:07:45 AM PROGRESS Observed: 12/31/2017 Status: COMPLETED Source: [place] 9:44 AM [facility] OTHER [facility] REPOSITORY HNO ID: [id number] Author: Kena Bennett Service: (none) Author Type: Registered Nurse Type: Progress Notes Filed: 12/31/2017 9:44 AM Note Text: PRIMARY CARE COORDINATION QUICK NOTE Provider Action/FYI Requested office notes to fax to PCP- Patient identified by name and date . Kena Bennett RN PROGRESS Observed: 12/26/2017 Status: COMPLETED Source: [place] 11:43 AM [facility] OTHER CAMPUS REPOSITORY HNO ID: [id number] Author: Kena Bennett Service: (none) Author Type: Registered Nurse Type: Progress Notes Filed: 12/31/2017 9:44 AM Note Text: PRIMARY CARE COORDINATION QUICK NOTE Provider Action/FYI Spoke with [facility] patient was discharged in July for multiple ED visits which goes against pain management agreement Patient identified by name and date . Kena Bennett RN CNPTOUTREACH Observed: 12/25/2017 Status: COMPLETED Source: [place] 12:00 AM CLINIC OTHER [place] REPOSITORY Patient Outreach ([facility]) SINGH PEREIRAA Jose ([id number]) 1950 F Date Time Provider Department 12/25/17 KENA BENNETT (RN) [facility] During your visit today, we recorded the following information about you: Kena Bennett RN 12/31/2017 9:44 AM Signed PRIMARY CARE COORDINATION QUICK NOTE Provider Cleo/SYLVAIN Spoke with [facility] patient was discharged in July for multiple ED visits which goes against pain management agreement Patient identified by name and date . JODIE Reid RN 12/31/2017 9:44 AM Signed PRIMARY CARE COORDINATION QUICK NOTE Provider Cleo/SYLVAIN Requested office notes to fax to PCP- Patient identified by name and date . 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 [2625] Prescriptions as of 12/25/2017 Sig: RISPERIDONE 0.5 MG TABLET Take 1 tablet by mouth twice * SERTRALINE 100 MG TABLET Take 1 tablet by mouth once d* LEVOTHYROXINE 50 MCG TABLET Take 1 tablet by mouth once d* RIVAROXABAN 15 MG TABLET Take one tab by mouth twice d* Patient not taking: Reported on 12/15/2017 RIVAROXABAN 20 MG TABLET Take 1 tablet by mouth daily * LISINOPRIL 20 MG-HYDROCHLOROT* Take 1 tablet by mouth once d* LISINOPRIL 10 MG-HYDROCHLOROT* Take 1 tablet by mouth once d* Problem List As Of Date 12/25/2017 Noted Resolved Anxiety [F41.9] Compression fracture of lumbar vertebra (HCC) [* Depression [F32.9] DDD (degenerative disc disease), lumbar [M51.36] H/O blood clots [Z86.718] Hypertension [I10] Scoliosis [M41.9] Encounter Status:Closed by KENA BENNETT RN on 12/31/17 PROGRESS Observed: 12/24/2017 Status: COMPLETED Source: [place] 10:58 AM [facility] REPOSITORY HNO ID: [id number] Author: Kena Bennett Service: (none) Author Type: Registered Nurse Type: Progress Notes Filed: 12/24/2017 10:58 AM Note Text: This encounter was opened in error. Kena Bennett RN PROGRESS Observed: 12/19/2017 Status: COMPLETED Source: [place] 3:59 PM [facility] REPOSITORY HNO ID: [id number] Author: Kena Bennett Service: (none) Author Type: Registered Nurse Type: Progress Notes Filed: 12/19/2017 4:01 PM Note Text: PRIMARY CARE COORDINATION QUICK NOTE Provider Action/FYI Patient advised [facility] number to reach out to to bridge the gap for medication. Given Dermatology appt information and address. Discussed PCC is not trying to speak down to her as we are partners in her health-advised want patient aware of side effects. Patient voiced understanding and appreciated conversation. Patient identified by name and date . Kena Bennett RN PROGRESS Observed: 12/19/2017 Status: COMPLETED Source: [place] 2:59 PM [facility] REPOSITORY HNO ID: [id number] Author: Kena Bennett Service: (none) Author Type: Registered Nurse Type: Progress Notes Filed: 12/19/2017 3:06 PM Note Text: PRIMARY CARE COORDINATION QUICK NOTE Provider Action/FYI IPOC requested-paperwork filled out and emailed. Patient identified by name and date . Kena Bennett RN PROGRESS Observed: 12/19/2017 Status: COMPLETED Source: [place] 11:08 AM [facility] REPOSITORY HNO ID: [id number] Author: Kena Bennett Service: (none) Author Type: Registered Nurse Type: Progress Notes Filed: 12/19/2017 2:13 PM Note Text: PRIMARY CARE COORDINATION QUICK NOTE Provider Action/FYI Received call from Braden [facility] pharmacist who states received a prescription from Judy SCHWARTZ for more prednisone 20mg 15 tabs. Patient was dispensed 25 tablets of prednisone on 12/15 per pharmacist. Located Judy Nielson from ED at [facility]-advised patient is going from ED to ED for prednisone and percocet. Contacted Mere Cardenas who will request a Social work ED care plan-message left for at [facility] for care plan to be placed. Call placed to [facility]. Patient identified by name and date . Kena Bennett RN PROGRESS Observed: 12/19/2017 Status: COMPLETED Source: [place] 11:05 AM [facility] OTHER CAMPUS REPOSITORY HNO ID: [id number] Author: Kena Bennett Service: (none) Author Type: Registered Nurse Type: Progress Notes Filed: 12/19/2017 2:13 PM Note Text: PRIMARY CARE COORDINATION QUICK NOTE Provider Cleo/SYLVAIN Patient called back and left a message via and stated she did not appreciate PCC treating her like a child and that she is 67yo and will do what she thinks is best as I have no idea re her skin condition when apparently I was trying to educate re: ED use and side effects which are a potential result of frequent prednisone use. Patient identified by name and date . Kena Bennett RN PROGRESS Observed: 12/19/2017 Status: COMPLETED Source: [place] 10:43 AM [facility] OTHER [facility] REPOSITORY HNO ID: [id number] Author: Kena Bennett Service: (none) Author Type: Registered Nurse Type: Progress Notes Filed: 12/19/2017 10:45 AM Note Text: PRIMARY CARE COORDINATION QUICK NOTE Provider Cleo/SYLVAIN Aguila-pharmacist at [facility] states patent can refill 01/09 but can call navin directly at [phone] regarding her shortage of medication. Patient is to call PCP terri barrett at that time as she was driving her vehicle when we spoke. Patient identified by name and date . Kena Bennett RN PROGRESS Observed: 12/19/2017 Status: COMPLETED Source: [place] 10:21 AM [facility] OTHER [facility] REPOSITORY HNO ID: [id number] Author: Kena Bennett Service: (none) Author Type: Registered Nurse Type: Progress Notes Filed: 12/19/2017 10:46 AM Note Text: PRIMARY CARE COORDINATION QUICK NOTE Provider Cleo/SYLVAIN Spoke to patient to advise derm. appt, as she did not return call to myself or Derm office-stressed importance of keeping appt. While speaking with patient, she disclosed she is taking her Xarelto 20mg BID, denies nose bleed, blood in urine or stool. Consulted Dr. Birmingham and Darron Fairchild 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 was advised to have patient start on proper dose and go to ED with any signs of bleeding in stool, urine, nose bleeds. Educated on importance of taking medication as prescribed-discussed skipping doses also. Confirmed dose via pharmacy is VERY worried re: prednisone prescriptions which have been dispensed by various ED, pharmacy will call should patient show up with another prescription for prednisone. Had a very detailed conversation with patient re: ED emergency visits vs non emergent visits to ED. Discussed a length the adverse effect on her body of high doses of repeat prednisone treatment and he use of multiple ED departments. The patient indicates understanding of these issues and agrees with the plan.routing to Provider as FYI. Incidental information patient has not picked up risperidone prescription given at last office visit. Patient identified by name and date . Kena Bennett RN PROGRESS Observed: 12/18/2017 Status: COMPLETED Source: [place] 11:01 AM [facility] REPOSITORY HNO ID: [id number] Author: Kena Bennett Service: (none) Author Type: Registered Nurse Type: Progress Notes Filed: 12/19/2017 10:36 AM Note Text: PRIMARY CARE COORDINATION QUICK NOTE Provider Action/SYLVAIN Left detailed message to return call. Patient identified by name and date . Kena Bennett RN PROGRESS Observed: 12/17/2017 Status: COMPLETED Source: [place] 3:02 PM [facility] REPOSITORY HNO ID: [id number] Author: Kena Bennett Service: (none) Author Type: Registered Nurse Type: Progress Notes Filed: 12/19/2017 10:36 AM Note Text: PRIMARY CARE COORDINATION QUICK NOTE Provider Action/SYLVAIN Spoke to Tammy at Dr Sweeney office who will sned a note for an appointment for patient. Contacted [facility] ramirez-do not take insurance. Dr Karimi unable to locate in [place] Patient identified by name and date . Kena Bennett RN [facility] Observed: 12/17/2017 Status: COMPLETED Source: [place] 12:00 AM [facility] REPOSITORY Patient Outreach ([facility]) REGNIA PEREIRA ([id number]) 1950 F Date Time Provider Department 12/17/17 KENA BENNETT (RN) RUPERT During your visit today, we recorded the following information about you: Kena Bennett RN 12/19/2017 10:36 AM Signed PRIMARY CARE COORDINATION QUICK NOTE Provider Action/FYEsther Spoke to Tammy at Dr Sweeney office who will sned a note for an appointment for patient. Contacted [facility] derm-do not take insurance. Dr Karimi unable to locate in [place] Patient identified by name and date . JODIE Reid RN 12/19/2017 10:36 AM Signed PRIMARY CARE COORDINATION QUICK NOTE Provider Action/FYEsther Left detailed message to return call. Patient identified by name and date . JODIE Reid RN 12/19/2017 10:46 AM Addendum PRIMARY CARE COORDINATION QUICK NOTE Provider Action/FYI Spoke to patient to advise derm. appt, as she did not return call to myself or Derm office-stressed importance of keeping appt. While speaking with patient, she disclosed she is taking her Xarelto 20mg BID, denies nose bleed, blood in urine or stool. Consulted Dr. Birmingham and Darron Fairchild 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 was advised to have patient start on proper dose and go to ED with any signs of bleeding in stool, urine, nose bleeds. Educated on importance of taking medication as prescribed-discussed skipping doses also. Confirmed dose via pharmacy is VERY worried re: prednisone prescriptions which have been dispensed by various ED, pharmacy will call should patient show up with another prescription for prednisone. Had a very detailed conversation with patient re: ED emergency visits vs non emergent visits to ED. Discussed a length the adverse effect on her body of high doses of repeat prednisone treatment and he use of multiple ED departments. The patient indicates understanding of these issues and agrees with the plan.routing to Provider as FYI. Incidental information patient has not picked up risperidone prescription given at last office visit. Patient identified by name and date . JODIE Reid RN 12/19/2017 10:45 AM Signed PRIMARY CARE COORDINATION QUICK NOTE Provider Action/SYLVAIN Aguila-pharmacist at [facility] states patent can refill 01/09 but can call navin directly at [phone] regarding her shortage of medication. Patient is to call PCP terri barrett at that time as she was driving her vehicle when we spoke. Patient identified by name and date . JODIE Reid RN 12/19/2017 2:13 PM Addendum PRIMARY CARE COORDINATION QUICK NOTE Provider Action/FYI Patient called back and left a message via and stated she did not appreciate PCC treating her like a child and that she is 67yo and will do what she thinks is best as I have no idea re her skin condition when apparently I was trying to educate re: ED use and side effects which are a potential result of frequent prednisone use. Patient identified by name and date . JODIE Reid RN 12/19/2017 2:13 PM Signed PRIMARY CARE COORDINATION QUICK NOTE Provider Action/FYEsther Received call from Braden [facility] pharmacist who states received a prescription from Judy SCHWARTZ for more prednisone 20mg 15 tabs. Patient was dispensed 25 tablets of prednisone on 12/15 per pharmacist. Located Juyd Nielson from ED at [facility]-advised patient is going from ED to ED for prednisone and percocet. Contacted [facility] Theresa who will request a Social work ED care plan-message left for at [facility] for care plan to be placed. Call placed to [place] [facility]. Patient identified by name and date . JODIE Reid RN 12/19/2017 3:06 PM Signed PRIMARY CARE COORDINATION QUICK NOTE Provider Action/SYLVAIN [facility] requested-paperwork filled out and emailed. Patient identified by name and date . JODIE Reid RN 12/19/2017 4:01 PM Signed PRIMARY CARE COORDINATION QUICK NOTE Provider Action/FYI Patient advised [facility] number to reach out to to bridge the gap for medication. Given Dermatology appt information and address. Discussed PCC is not trying to speak down to her as we are partners in her health-advised want patient aware of side effects. Patient voiced understanding and appreciated conversation. Patient identified by name and date . 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 Follow Up [3611] Prescriptions as of 12/17/2017 Sig: RISPERIDONE 0.5 MG TABLET Take 1 tablet by mouth twice * SERTRALINE 100 MG TABLET Take 1 tablet by mouth once d* LEVOTHYROXINE 50 MCG TABLET Take 1 tablet by mouth once d* RIVAROXABAN 15 MG TABLET Take one tab by mouth twice d* Patient not taking: Reported on 12/15/2017 RIVAROXABAN 20 MG TABLET Take 1 tablet by mouth daily * LISINOPRIL 20 MG-HYDROCHLOROT* Take 1 tablet by mouth once d* LISINOPRIL 10 MG-HYDROCHLOROT* Take 1 tablet by mouth once d* Problem List As Of Date 12/17/2017 Noted Resolved Anxiety [F41.9] Compression fracture of lumbar vertebra (HCC) [* Depression [F32.9] DDD (degenerative disc disease), lumbar [M51.36] H/O blood clots [Z86.718] Hypertension [I10] Scoliosis [M41.9] Encounter Status:Closed by KENA BENNETT RN on 12/19/17 CNPN Observed: 12/17/2017 Status: COMPLETED Source: [place] 12:[address] [facility] REPOSITORY Telephone (STFLF) REGINA PEREIRA ([id number]) 1950 F Date Time Provider Department 12/17/17 [facility] [place] [facility] During your visit today, we recorded the following information about you: Tammy Corcoran PSR 12/17/2017 4:04 PM Signed Kena, ED Coordinator at the [facility], is asking if Dr. Sweeney would see this patient as new patient, (sooner than March). Patient has psoraisis, but does not have clerical warehouseman. She is constantly seen in the ED for this, and Kena trying to stop the ED visits, and get patient a permanent clerical warehouseman. Please advise. Domitila Gil Ma 12/17/2017 4:34 PM Signed Per ZF, ok for patient to be seen sooner. Ok to be double booked for this ONLY if double booked with a 40 minute CRYO appointment, any day except January 20. Dave Hare 12/18/2017 8:48 AM Signed Patient is scheduled on Friday01/21/18 at 220pm, will need to arrive at 2pm. LMOVM to call us back in regards to this. Allergies As of Date: 12/17/2017 (No Known Allergies) Date Reviewed: 12/15/2017 Reviewed by: No Horton - Fully Assessed Reason for Visit: needs appointment [Other] Prescriptions as of 12/17/2017 Sig: RISPERIDONE 0.5 MG TABLET Take 1 tablet by mouth twice * SERTRALINE 100 MG TABLET Take 1 tablet by mouth once d* LEVOTHYROXINE 50 MCG TABLET Take 1 tablet by mouth once d* RIVAROXABAN 15 MG TABLET Take one tab by mouth twice d* Patient not taking: Reported on 12/15/2017 RIVAROXABAN 20 MG TABLET Take 1 tablet by mouth daily * LISINOPRIL 20 MG-HYDROCHLOROT* Take 1 tablet by mouth once d* LISINOPRIL 10 MG-HYDROCHLOROT* Take 1 tablet by mouth once d* Problem List As Of Date 12/17/2017 Noted Resolved Anxiety [F41.9] Compression fracture of lumbar vertebra (HCC) [* Depression [F32.9] DDD (degenerative disc disease), lumbar [M51.36] H/O blood clots [Z86.718] Hypertension [I10] Scoliosis [M41.9] Encounter Status:Closed by DAVE MORTON on 12/18/17 CNOV Observed: 12/15/2017 Status: COMPLETED Source: [place] 8:00 AM [facility] REPOSITORY Office Visit ([facility]) REGINA PEREIRA ([id number]) 1950 F Date Time Provider Department 12/15/17 8:00 AM NO HORTON AGG During your visit today, we recorded the following information about you: Temperature Pulse Blood pressure Height 98.2 degrees 113/minute 116/68 1.753 m No Horton 12/15/2017 8:25 AM Signed Subjective Regina Pereira is a 67 year old female who presents for ED Follow Up (EZCEMA). Patient went to ED 12/07/17 for Ezcema. The ED did not prescribe anything for rash. Patient needs refills - pending. 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 Pt's blood counts (RBC's) are at the high end of normal. Her thyroid is also showing signs of being sluggish. Pt was started on Risperdal years ago by another physician. I am questioning whetehr she needs to be on this. The history is provided by the patient. Review of Systems Constitutional: Negative for chills, fever and weight loss. HENT: Negative for congestion, ear pain and sore throat. Eyes: Negative for blurred vision and discharge. Respiratory: Negative for cough and shortness of breath. Cardiovascular: Negative for chest pain, palpitations and PND. Gastrointestinal: Negative for abdominal pain, blood in stool, constipation, diarrhea, nausea and vomiting. Genitourinary: Negative for dysuria, frequency, hematuria and urgency. Musculoskeletal: Negative. Negative for back pain, joint pain and neck pain. Skin: Positive for rash (white plaques c/w psoriasis (not eczema)). Neurological: Negative. Negative for dizziness, tingling and sensory change. Endo/Heme/Allergies: Negative. Psychiatric/Behavioral: Positive for depression. Negative for memory loss and suicidal ideas. The patient is nervous/anxious. The patient does not have insomnia. PAST MEDICAL HISTORY Diagnosis Date - Acquired hypothyroidism - Anxiety - Compression fracture of lumbar vertebra (HCC) - DDD (degenerative disc disease), lumbar - Depression - H/O blood clots - Hypertension - PE (pulmonary thromboembolism) (HCC) - Scoliosis PAST SURGICAL HISTORY Procedure Laterality Date - SECTION HX 1983 - HYSTERECTOMY FAMILY HISTORY Problem Relation Age of Onset - Diabetes Mother - Hypertension Mother - Alcohol/Drug Mother - Cancer Mother - Depression/Anxiety [OTHER] Mother - Alcohol/Drug Father - Diabetes Sister - Hypertension Sister Social History Marital status: Spouse name: Years of education: Number of children: Social History Main Topics Smoking status: Former Smoker Packs/day: 0.00 Years: 0.00 Types: Cigarettes Smokeless tobacco: Never Used Alcohol use: Yes Comment: rarely Drug use: No Sexual activity: Not Currently Partners with: Male Other Topics Concern Caffeine Concern Yes Comment:1 cup tea daily Special Diet No Exercise No Current Meds rivaroxaban (XARELTO) 20 mg tablet Take 1 tablet by mouth daily with dinner. lisinopril-hydrochlorothiazide (PRINZIDE, ZESTORETIC) 20-25 mg per tablet Take 1 tablet by mouth once daily. risperiDONE (RISPERDAL) 0.5 mg tablet Take 0.5 mg by mouth twice daily. sertraline (ZOLOFT) 100 mg tablet Take 100 mg by mouth once daily. rivaroxaban (XARELTO) 15 mg tablet Take one tab by mouth twice daily for the next 21 days. warfarin (COUMADIN) 5 mg tablet Take 1 tablet by mouth once daily. lisinopril-hydrochlorothiazide (PRINZIDE,ZESTORETIC) 10-12.5 mg per tablet Take 1 tablet by mouth once daily. Objective Ht 5' 9 (1.75m) Wt 0 lb (0.0kg) Physical Exam Constitutional: She is oriented to person, place, and time and well-developed, well-nourished, and in no distress. No distress. HENT: Head: Normocephalic and atraumatic. Right Ear: External ear normal. Left Ear: External ear normal. Nose: Nose normal. Mouth/Throat: Oropharynx is clear and moist. No oropharyngeal exudate. Eyes: Conjunctivae and EOM are normal. Pupils are equal, round, and reactive to light. Neck: Normal range of motion. Neck supple. No JVD present. No tracheal deviation present. No thyromegaly present. Cardiovascular: Regular rhythm and normal heart sounds. Exam reveals no gallop and no friction rub. No murmur heard. Pt is tachycardic at 113 bpm. This may be due to PE and debility. Pulmonary/Chest: Effort normal and breath sounds normal. No stridor. No respiratory distress. She has no wheezes. She has no rales. She exhibits no tenderness. Abdominal: Soft. Bowel sounds are normal. She exhibits no distension and no mass. There is no tenderness. There is no rebound and no guarding. Musculoskeletal: Normal range of motion. She exhibits no edema or tenderness. Lymphadenopathy: She has no cervical adenopathy. Neurological: She is alert and oriented to person, place, and time. Gait normal. Skin: Skin is warm and dry. No rash noted. No erythema. No pallor. Psychiatric: Mood, memory, affect and judgment normal. Nursing note and vitals reviewed. Patient Instructions 1) Refills sent to pharmacy. 2) Thyroid medication sent to pharmacy. 3) Recheck thyroid labs the last week of January,. 4) Referrals to hematology and psychiatry and dermatology. 5) Take two of the xeralto tabs daily. . ASSESSMENT/PLAN: 1. Other acute pulmonary embolism without acute cor pulmonale (HCC) - ICD9: 415.19, ICD10: I26.99 (primary diagnosis) -Continue anticoagulation. -Since blood counts are at the high end of normal, I will have her see hematology for an opinion. - CONSULT TO HEMATOLOGY 2. Polycythemia - ICD9: 238.4, ICD10: D75.1 -see #1. - CONSULT TO HEMATOLOGY 3. Hypothyroidism, acquired - ICD9: 244.9, ICD10: E03.9 - check TSH and free T4 in 6 weeks - Pt will begin taking levothyroxine 50 mcg daily for initial therapy for acquired hypothyroidism. - TSH BLD - T4/THYROXINE BLOOD 4. Anxiety disorder, unspecified type - ICD9: 300.00, ICD10: F41.9 -I am not sure pt needs to be on Risperdal. I would like her to see psych for her meds. I don't feel comfortable d/cing the risperdal since she has been on it for years. - CONSULT TO PSYCHIATRY 5. Psoriasis - ICD9: 696.1, ICD10: L40.9 -widespread on legs. Pt may need a biologic for this. - CONSULT TO DERMATOLOGY No Horton MD, MED No Horton 12/15/2017 8:15 AM Signed 1) Refills sent to pharmacy. 2) Thyroid medication sent to pharmacy. 3) Recheck thyroid labs the last week of January,. 4) Referrals to hematology and psychiatry and dermatology. 5) Take two of the xeralto tabs daily. . Referring Provider: NO HORTON [[id number]] Allergies As of Date: 12/15/2017 (No Known Allergies) Date Reviewed: 12/15/2017 Reviewed by: No Horton - Fully Assessed Reason for Visit: ED Follow Up [973] Cmt: AKBARMA Primary Visit Diagnosis:Other acute pulmonary embolism without acute cor pulmonale (HCC) [I26.99] Other Visit Diagnoses:Polycythemia [D75.1] Hypothyroidism, acquired [E03.9] Anxiety disorder, unspecified type [F41.9] Psoriasis [L40.9] Order(s):risperiDONE (RISPERDAL) 0.5 mg tabletTake 1 tablet by mouth twice daily.Disp: 60 tabletRfl: 5 sertraline (ZOLOFT) 100 mg tabletTake 1 tablet by mouth once daily.Disp: 30 tabletRfl: 5 levothyroxine (SYNTHROID) 50 mcg tabletTake 1 tablet by mouth once daily.Disp: 30 tabletRfl: 2 TSH BLD [SQTSH] Order #: [id number] FUTURE T4/THYROXINE BLOOD [SQT4] Order #: [id number] FUTURE CONSULT TO HEMATOLOGY [9014] Order #: [id number]: 1 CONSULT TO PSYCHIATRY [9035] Order #: [id number]: 1 CONSULT TO DERMATOLOGY [9006] Order #: [id number]: 1 Prescriptions as of 12/15/2017 Sig: RISPERIDONE 0.5 MG TABLET Take 1 tablet by mouth twice * SERTRALINE 100 MG TABLET Take 1 tablet by mouth once d* RIVAROXABAN 20 MG TABLET Take 1 tablet by mouth daily * LISINOPRIL 20 MG-HYDROCHLOROT* Take 1 tablet by mouth once d* LEVOTHYROXINE 50 MCG TABLET Take 1 tablet by mouth once d* RIVAROXABAN 15 MG TABLET Take one tab by mouth twice d* Patient not taking: Reported on 12/15/2017 LISINOPRIL 10 MG-HYDROCHLOROT* Take 1 tablet by mouth once d* Problem List As Of Date 12/15/2017 Noted Resolved Anxiety [F41.9] Compression fracture of lumbar vertebra (HCC) [* Depression [F32.9] DDD (degenerative disc disease), lumbar [M51.36] H/O blood clots [Z86.718] Hypertension [I10] Scoliosis [M41.9] Other instructions from your clinician: 1) Refills sent to pharmacy. 2) Thyroid medication sent to pharmacy. 3) Recheck thyroid labs the last week of January,. 4) Referrals to hematology and psychiatry and dermatology. 5) Take two of the xeralto tabs daily. . Prescriptions ordered this encounter Disp Refills Start End RISPERIDONE 0.5 MG TABLET 60 t* 5 12/15/2017 Route: ORAL Sig: Take 1 tablet by mouth twice daily. SERTRALINE 100 MG TABLET 30 t* 5 12/15/2017 Route: ORAL Sig: Take 1 tablet by mouth once daily. LEVOTHYROXINE 50 MCG TABLET 30 t* 2 12/15/2017 Route: ORAL Sig: Take 1 tablet by mouth once daily. Medications Discontinued During This Encounter warfarin (COUMADIN) 5 mg tablet 30 t* 1 11/17/2017 12/15/2017 Route: ORAL Sig: Take 1 tablet by mouth once daily. Patient not taking: Reported on 12/15/2017 Disc: Other risperiDONE (RISPERDAL) 0.5 mg tablet 04/02/2017 12/15/2017 Class: Historical Med Route: ORAL Sig: Take 0.5 mg by mouth twice daily. Disc: Reason for discontinue is not on file. sertraline (ZOLOFT) 100 mg tablet 04/02/2017 12/15/2017 Class: Historical Med Route: ORAL Sig: Take 100 mg by mouth once daily. Disc: Reason for discontinue is not on file. Disposition: Return in about 6 weeks (around 01/26/2018) for hypothyroidism. Follow-up and Disposition History Recorded Encounter Status:Closed by NO HORTON on 12/15/17 PROGRESS Observed: 12/15/2017 Status: COMPLETED Source: [place] 7:56 AM CLINIC OTHER CAMPUS REPOSITORY HNO ID: [id number] Author: No Horton Service: (none) Author Type: Physician Type: Progress Notes Filed: 12/15/2017 8:25 AM Note Text: Subjective Regina Pereira is a 67 year old female who presents for ED Follow Up (EZCEMA). Patient went to ED 12/07/17 for Ezcema. The ED did not prescribe anything for rash. Patient needs refills - pending. 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 Pt's blood counts (RBC's) are at the high end of normal. Her thyroid is also showing signs of being sluggish. Pt was started on Risperdal years ago by another physician. I am questioning whetehr she needs to be on this. The history is provided by the patient. Review of Systems Constitutional: Negative for chills, fever and weight loss. HENT: Negative for congestion, ear pain and sore throat. Eyes: Negative for blurred vision and discharge. Respiratory: Negative for cough and shortness of breath. Cardiovascular: Negative for chest pain, palpitations and PND. Gastrointestinal: Negative for abdominal pain, blood in stool, constipation, diarrhea, nausea and vomiting. Genitourinary: Negative for dysuria, frequency, hematuria and urgency. Musculoskeletal: Negative. Negative for back pain, joint pain and neck pain. Skin: Positive for rash (white plaques c/w psoriasis (not eczema)). Neurological: Negative. Negative for dizziness, tingling and sensory change. Endo/Heme/Allergies: Negative. Psychiatric/Behavioral: Positive for depression. Negative for memory loss and suicidal ideas. The patient is nervous/anxious. The patient does not have insomnia. PAST MEDICAL HISTORY Diagnosis Date - Acquired hypothyroidism - Anxiety - Compression fracture of lumbar vertebra (HCC) - DDD (degenerative disc disease), lumbar - Depression - H/O blood clots - Hypertension - PE (pulmonary thromboembolism) (HCC) - Scoliosis PAST SURGICAL HISTORY Procedure Laterality Date - SECTION HX 1983 - HYSTERECTOMY FAMILY HISTORY Problem Relation Age of Onset - Diabetes Mother - Hypertension Mother - Alcohol/Drug Mother - Cancer Mother - Depression/Anxiety [OTHER] Mother - Alcohol/Drug Father - Diabetes Sister - Hypertension Sister Social History Marital status: Spouse name: Years of education: Number of children: Social History Main Topics Smoking status: Former Smoker Packs/day: 0.00 Years: 0.00 Types: Cigarettes Smokeless tobacco: Never Used Alcohol use: Yes Comment: rarely Drug use: No Sexual activity: Not Currently Partners with: Male Other Topics Concern Caffeine Concern Yes Comment:1 cup tea daily Special Diet No Exercise No Current Meds rivaroxaban (XARELTO) 20 mg tablet Take 1 tablet by mouth daily with dinner. lisinopril-hydrochlorothiazide (PRINZIDE, ZESTORETIC) 20-25 mg per tablet Take 1 tablet by mouth once daily. risperiDONE (RISPERDAL) 0.5 mg tablet Take 0.5 mg by mouth twice daily. sertraline (ZOLOFT) 100 mg tablet Take 100 mg by mouth once daily. rivaroxaban (XARELTO) 15 mg tablet Take one tab by mouth twice daily for the next 21 days. warfarin (COUMADIN) 5 mg tablet Take 1 tablet by mouth once daily. lisinopril-hydrochlorothiazide (PRINZIDE,ZESTORETIC) 10-12.5 mg per tablet Take 1 tablet by mouth once daily. Objective Ht 5' 9 (1.75m) Wt 0 lb (0.0kg) Physical Exam Constitutional: She is oriented to person, place, and time and well-developed, well-nourished, and in no distress. No distress. HENT: Head: Normocephalic and atraumatic. Right Ear: External ear normal. Left Ear: External ear normal. Nose: Nose normal. Mouth/Throat: Oropharynx is clear and moist. No oropharyngeal exudate. Eyes: Conjunctivae and EOM are normal. Pupils are equal, round, and reactive to light. Neck: Normal range of motion. Neck supple. No JVD present. No tracheal deviation present. No thyromegaly present. Cardiovascular: Regular rhythm and normal heart sounds. Exam reveals no gallop and no friction rub. No murmur heard. Pt is tachycardic at 113 bpm. This may be due to PE and debility. Pulmonary/Chest: Effort normal and breath sounds normal. No stridor. No respiratory distress. She has no wheezes. She has no rales. She exhibits no tenderness. Abdominal: Soft. Bowel sounds are normal. She exhibits no distension and no mass. There is no tenderness. There is no rebound and no guarding. Musculoskeletal: Normal range of motion. She exhibits no edema or tenderness. Lymphadenopathy: She has no cervical adenopathy. Neurological: She is alert and oriented to person, place, and time. Gait normal. Skin: Skin is warm and dry. No rash noted. No erythema. No pallor. Psychiatric: Mood, memory, affect and judgment normal. Nursing note and vitals reviewed. Patient Instructions 1) Refills sent to pharmacy. 2) Thyroid medication sent to pharmacy. 3) Recheck thyroid labs the last week of January,. 4) Referrals to hematology and psychiatry and dermatology. 5) Take two of the xeralto tabs daily. . ASSESSMENT/PLAN: 1. Other acute pulmonary embolism without acute cor pulmonale (HCC) - ICD9: 415.19, ICD10: I26.99 (primary diagnosis) -Continue anticoagulation. -Since blood counts are at the high end of normal, I will have her see hematology for an opinion. - CONSULT TO HEMATOLOGY 2. Polycythemia - ICD9: 238.4, ICD10: D75.1 -see #1. - CONSULT TO HEMATOLOGY 3. Hypothyroidism, acquired - ICD9: 244.9, ICD10: E03.9 - check TSH and free T4 in 6 weeks - Pt will begin taking levothyroxine 50 mcg daily for initial therapy for acquired hypothyroidism. - TSH BLD - T4/THYROXINE BLOOD 4. Anxiety disorder, unspecified type - ICD9: 300.00, ICD10: F41.9 -I am not sure pt needs to be on Risperdal. I would like her to see psych for her meds. I don't feel comfortable d/cing the risperdal since she has been on it for years. - CONSULT TO PSYCHIATRY 5. Psoriasis - ICD9: 696.1, ICD10: L40.9 -widespread on legs. Pt may need a biologic for this. - CONSULT TO DERMATOLOGY No Horton MD, MED CNPN Observed: 12/15/2017 Status: COMPLETED Source: [place] 12:00 AM [facility] OTHER [place] REPOSITORY Telephone ([facility]) REGINA PEREIRA ([id number]) 1950 F Date Time Provider Department 12/15/17 NO HORTON During your visit today, we recorded the following information about you: Gene Prieto 12/15/2017 9:52 AM Signed REFERRAL TO HEMATOLOGY VIA [facility] PORT[facility] #[id number] [facility] 12/15/2017 09:52:22 Gene Prieto 12/18/2017 11:01 AM Signed This e-mail is a confirmation that your patient listed below has been scheduled for an appointment with [facility], should you have any questions or concerns regarding this appointment please contact the appropriate office directly: Medical Records (Please Note) X Medical Records Are Not Required: Referring Office AND Specialist Are Both On [facility]. Medical Records Are Required: Fax Appropriate Records Including: Order, Last Office Note, AND Any Necessary Imaging/Labs/Etc. To: Additional Office Location Information AND Phone Numbers [facility]ology [facility] Oncology ? Physician Office Building ? [address] [place] [address], [address], [place] [address] ? [facility] Oncology ? Health AND Wellness [place], [place] ? [address] [place] [address], [address], [place] [address] ? [facility] Oncology ? [facility] [place] ? [address] [place] [address], [address], [place] [address] ? Allergies As of Date: 12/15/2017 (No Known Allergies) Date Reviewed: 12/15/2017 Reviewed by: oN Horton - Fully Assessed Reason for Visit: REFERRAL TO HEMATOLOGY [Other] Prescriptions as of 12/15/2017 Sig: RISPERIDONE 0.5 MG TABLET Take 1 tablet by mouth twice * SERTRALINE 100 MG TABLET Take 1 tablet by mouth once d* LEVOTHYROXINE 50 MCG TABLET Take 1 tablet by mouth once d* RIVAROXABAN 15 MG TABLET Take one tab by mouth twice d* Patient not taking: Reported on 12/15/2017 RIVAROXABAN 20 MG TABLET Take 1 tablet by mouth daily * LISINOPRIL 20 MG-HYDROCHLOROT* Take 1 tablet by mouth once d* LISINOPRIL 10 MG-HYDROCHLOROT* Take 1 tablet by mouth once d* Problem List As Of Date 12/15/2017 Noted Resolved Anxiety [F41.9] Compression fracture of lumbar vertebra (HCC) [* Depression [F32.9] DDD (degenerative disc disease), lumbar [M51.36] H/O blood clots [Z86.718] Hypertension [I10] Scoliosis [M41.9] Encounter Status:Closed by GENE PRIETO on 12/15/17 CNPN Observed: 12/15/2017 Status: COMPLETED Source: [place] 12:00 AM CLINIC OTHER CAMPUS REPOSITORY Telephone ([facility]) REGINA PEREIRA ([id number]) 1950 F Date Time Provider Department 12/15/17 NO HORTON [facility] During your visit today, we recorded the following information about you: Gene Prieto 12/15/2017 9:51 AM Signed REFERRAL TO DERMATOLOGY VIA [facility] #[id number] MGR[facility]ETTYE 12/15/2017 09:51:31 Gene Prieto 12/25/2017 7:51 AM Signed This e-mail is a confirmation that your patient listed below has been scheduled for an appointment with [facility] ? [id number] should you have any questions or concerns regarding this appointment please contact the appropriate office directly: Medical Records (Please Note) x Medical Records Are Not Required: Referring Office AND Specialist Are Both On [facility]. Medical Records Are Required: Fax Appropriate Records Including: Order, Last Office Note, AND Any Necessary Imaging/Labs/Etc. To: Additional Office Location Information AND Phone Numbers x [facility] ? [facility] at [address] [place] [address] [id number] ? Allergies As of Date: 12/15/2017 (No Known Allergies) Date Reviewed: 12/15/2017 Reviewed by: No Horton - Fully Assessed Reason for Visit: REFERRAL TO DERMATOLOGY [Other] Prescriptions as of 12/15/2017 Sig: RISPERIDONE 0.5 MG TABLET Take 1 tablet by mouth twice * SERTRALINE 100 MG TABLET Take 1 tablet by mouth once d* LEVOTHYROXINE 50 MCG TABLET Take 1 tablet by mouth once d* RIVAROXABAN 15 MG TABLET Take one tab by mouth twice d* Patient not taking: Reported on 12/15/2017 RIVAROXABAN 20 MG TABLET Take 1 tablet by mouth daily * LISINOPRIL 20 MG-HYDROCHLOROT* Take 1 tablet by mouth once d* LISINOPRIL 10 MG-HYDROCHLOROT* Take 1 tablet by mouth once d* Problem List As Of Date 12/15/2017 Noted Resolved Anxiety [F41.9] Compression fracture of lumbar vertebra (HCC) [* Depression [F32.9] DDD (degenerative disc disease), lumbar [M51.36] H/O blood clots [Z86.718] Hypertension [I10] Scoliosis [M41.9] Encounter Status:Closed by GENE PRIETO on 12/15/17 CNPN Observed: 12/15/2017 Status: COMPLETED Source: [facility] 12:00 AM CLINIC OTHER CAMPUS REPOSITORY Telephone ([facility]) REGINA PEREIRA ([id number]) 1950 F Date Time Provider Department 12/15/17 NO HORTON [facility] During your visit today, we recorded the following information about you: Gene Prieto 12/15/2017 9:53 AM Signed REFERRAL TO PSYCHIATRY VIA [facility] PORTAL #[id number] [place] 12/15/2017 09:53:07 Gene Prieto 12/30/2017 10:32 AM Signed This e-mail is to ALERT you that your patient listed below has NOT been scheduled as noted below, should you have any questions or concerns regarding this appointment please contact the office listed below directly: Appointment Attempted To Be Scheduled With: [facility] ? Psychiatry *If following up with the patient please provide the contact number above. Reason Not Scheduled: X Unable To Contact Patient ? We Have Made A Minimum Of 2 Calls To The Patient But Have Not [place] Back From Patient. This Patient Has Been Removed From Our Work List At This Time ? If Patient Contacts Your Office Please Advise The Patient To Call The Office Listed Above Directly Allergies As of Date: 12/15/2017 (No Known Allergies) Date Reviewed: 12/15/2017 Reviewed by: No Horton - Fully Assessed Reason for Visit: REFERRAL TO PSYCHIATRY [Other] Prescriptions as of 12/15/2017 Sig: RISPERIDONE 0.5 MG TABLET Take 1 tablet by mouth twice * SERTRALINE 100 MG TABLET Take 1 tablet by mouth once d* LEVOTHYROXINE 50 MCG TABLET Take 1 tablet by mouth once d* RIVAROXABAN 15 MG TABLET Take one tab by mouth twice d* Patient not taking: Reported on 12/15/2017 RIVAROXABAN 20 MG TABLET Take 1 tablet by mouth daily * LISINOPRIL 20 MG-HYDROCHLOROT* Take 1 tablet by mouth once d* LISINOPRIL 10 MG-HYDROCHLOROT* Take 1 tablet by mouth once d* Problem List As Of Date 12/15/2017 Noted Resolved Anxiety [F41.9] Compression fracture of lumbar vertebra (HCC) [* Depression [F32.9] DDD (degenerative disc disease), lumbar [M51.36] H/O blood clots [Z86.718] Hypertension [I10] Scoliosis [M41.9] Encounter Status:Closed by GENE PRIETO on 12/15/17 XR COCCYX MINIMUM 2 Observed: 12/14/2017 Status: C Source: [facility] 8:33 AM FOUNDATION REPOSITORY ADDENDUM CLINICAL STATEMENT: PELVIC PAIN FOLLOWING FALL AND PELVIC TRAUMA Interpreted By: Kj Winter DO Preliminary Report By: Kj Winter DO Electronically Signed By: Kj Winter DO Dictated Date: 12/19/2017 2:12:33 PM Prelim Date: 12/19/2017 2:13:16 PM Sign Date: 12/19/2017 2:13:16 PM ORIGINAL XR COCCYX MINIMUM 2 VIEWS CLINICAL STATEMENT: fall. COMPARISON: None FINDINGS: Sacrum and coccyx are radiographic intact. There is no posttraumatic fracture. Sacral ala are sharply marginated. There is a nonspecific bowel gas pattern in the lower pelvis. IMPRESSION: 1. No acute bony abnormality affecting the sacrum or coccyx. Interpreted By: Kj Winter DO Preliminary Report By: Kj Winter DO Electronically Signed By: Kj Winter DO Dictated Date: 12/14/2017 8:39:15 AM Prelim Date: 12/14/2017 8:39:15 AM Sign Date: 12/14/2017 8:40:53 AM PROGRESS Observed: 12/09/2017 Status: COMPLETED Source: [facility] 9:21 AM [facility] REPOSITORY HNO ID: [id number] Author: Kena Bennett (Rn) Service: (none) Author Type: Registered Nurse Type: Progress Notes Filed: 12/09/2017 9:29 AM Note Text: PRIMARY CARE COORDINATION QUICK NOTE Provider Action/FYI Contacted [facility] patient approved for [employer] assistance program mailed letter 01/08 and card to home. Card#[id number] group #[id number] bin#[id number] called information to [facility] who stated they will run-confirmed prescription. Patient was advised to order department supervisor today. Patient identified by name and date . Kena Bennett RN CNPTOUTREACH Observed: 12/09/2017 Status: COMPLETED Source: [facility] 12:00 AM [facility] REPOSITORY Patient Outreach ([facility]) REGINA PEREIRA ([id number]) 1950 F Date Time Provider Department 12/09/17 KENA BENNETT) [facility] During your visit today, we recorded the following information about you: Kena Bennett) 12/09/2017 9:29 AM Signed PRIMARY CARE COORDINATION QUICK NOTE Provider Action/SYLVAIN Contacted [facility] patient approved for [employer] assistance program mailed letter 01/08 and card to home. Card#[id number] group #[id number] bin#[id number] called information to [facility] pharmacy who stated they will run-confirmed prescription. Patient was advised to order department supervisor today. Patient identified by name and date . 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] Prescriptions as of 12/09/2017 Sig: RIVAROXABAN 15 MG TABLET Take one tab by mouth twice d* RIVAROXABAN 20 MG TABLET Take 1 tablet by mouth daily * WARFARIN 5 MG TABLET Take 1 tablet by mouth once d* LISINOPRIL 20 MG-HYDROCHLOROT* Take 1 tablet by mouth once d* LISINOPRIL 10 MG-HYDROCHLOROT* Take 1 tablet by mouth once d* RISPERIDONE 0.5 MG TABLET Take 0.5 mg by mouth twice da* SERTRALINE 100 MG TABLET Take 100 mg by mouth once jeronimo* Problem List As Of Date 12/09/2017 Noted Resolved Anxiety [F41.9] Compression fracture of lumbar vertebra (HCC) [* Depression [F32.9] DDD (degenerative disc disease), lumbar [M51.36] H/O blood clots [Z86.718] Hypertension [I10] Scoliosis [M41.9] Encounter Status:Closed by KENA BENNETT RN on 12/09/17 CNCO Observed: 12/09/2017 Status: COMPLETED Source: [facility] 12:00 AM CLINIC OTHER CAMPUS REPOSITORY Letter Text [facility] [address], [address] [place] [address] (fax) Member of [facility] and [facility] - Equal Opportunity Employer 12/09/2017 Regina Pereira [address] [address] We missed seeing you for your scheduled appointment with Dr. No Horton on 12/09/17. Our goal is to offer the best possible care to our patients, so we are concerned when you are unable to keep a scheduled appointment. Please call us at [phone] so that we can reschedule your appointment for a day and time that will work for you. If you find it difficult to keep your appointment, please notify our office at least 24 hours in advance so that we may reschedule your appointment. We are glad that you have chosen [facility] for your primary care needs and hope to continue serving you in the future. Sincerely, [facility]. PROGRESS Observed: 12/08/2017 Status: COMPLETED Source: [facility] 2:53 PM [facility] REPOSITORY HNO ID: [id number] Author: Svetlana Benites Service: (none) Author Type: LICENSED NURSE Type: Progress Notes Filed: 12/08/2017 3:11 PM Note Text: Reached out to patient regarding recent ED visit. Patient is concerned about her rash/eczema. Patient was given clindamycin to prevent infection from [facility]. No prednisone given at ED - instructed to F/U with PCP. Patient has an appt tomorrow. Svetlana Benites LPN CNPTOUTREACH Observed: 12/08/2017 Status: COMPLETED Source: [facility] 12:00 AM [facility] Patient Outreach ([facility]) REGINA PEREIRA ([id number]) 1950 F Date Time Provider Department 12/08/17 NO HORTON [facility] During your visit today, we recorded the following information about you: Svetlana Benites 12/08/2017 3:11 PM Signed Reached out to patient regarding recent ED visit. Patient is concerned about her rash/eczema. Patient was given clindamycin to prevent infection from [facility]. No prednisone given at ED - instructed to F/U with PCP. Patient has an appt tomorrow. Svetlana Benites LPN Allergies As of Date: 12/08/2017 (No Known Allergies) Date Reviewed: 12/07/2017 Reviewed by: Sylvia Regalado (Rn), RN - Fully Assessed Reason for Visit: Transition Of Care [4074] Cmt: ED VISIT Prescriptions as of 12/08/2017 Sig: RIVAROXABAN 15 MG TABLET Take one tab by mouth twice d* RIVAROXABAN 20 MG TABLET Take 1 tablet by mouth daily * WARFARIN 5 MG TABLET Take 1 tablet by mouth once d* LISINOPRIL 20 MG-HYDROCHLOROT* Take 1 tablet by mouth once d* LISINOPRIL 10 MG-HYDROCHLOROT* Take 1 tablet by mouth once d* RISPERIDONE 0.5 MG TABLET Take 0.5 mg by mouth twice da* SERTRALINE 100 MG TABLET Take 100 mg by mouth once jeronimo* Problem List As Of Date 12/08/2017 Noted Resolved Anxiety [F41.9] Compression fracture of lumbar vertebra (HCC) [* Depression [F32.9] DDD (degenerative disc disease), lumbar [M51.36] H/O blood clots [Z86.718] Hypertension [I10] Scoliosis [M41.9] Encounter Status:Closed by SVETLANA BENITES on 12/08/17 ED PROV NOTE Observed: 12/07/2017 Status: COMPLETED Source: [facility] 12:24 PM CLINIC OTHER CAMPUS REPOSITORY HNO ID: [id number] Author: Rosita Leigh DO Service: Emergency Medicine Author Type: Physician Type: ED Provider Notes Filed: 12/07/2017 12:27 PM Note Text: ED Provider Note Patient Name: Regina Pereira SERVICE DATE: 12/07/17 History Patient presents with: Rash 67 yo female who presents with lower extremity rash. Patient states she has bad eczema and has not had her steroids over the past couple days. She describes the rash is itchy. She was just seen at [facility] yesterday and placed on clindamycin to prevent infection. She states she try to follow-up with her primary care physician but she did not deal with her eczema at her appointment. PAST MEDICAL HISTORY Diagnosis Date - Anxiety - Compression fracture of lumbar vertebra (HCC) - DDD (degenerative disc disease), lumbar - Depression - H/O blood clots - Hypertension - PE (pulmonary thromboembolism) (HCC) - Scoliosis PAST SURGICAL HISTORY Procedure Laterality Date - SECTION HX 1984 - HYSTERECTOMY FAMILY HISTORY Problem Relation Age of Onset - Diabetes Mother - Hypertension Mother - Alcohol/Drug Mother - Cancer Mother - Depression/Anxiety [OTHER] Mother - Alcohol/Drug Father - Diabetes Sister - Hypertension Sister Social History Social History Main Topics - Smoking status: Former Smoker Types: Cigarettes - Smokeless tobacco: Never Used - Alcohol use Yes Comment: rarely - Drug use: No - Sexual activity: Not Currently Partners: Male ALLERGIES No Known Allergies Review of Systems Constitutional: Negative. HENT: Negative. Eyes: Negative. Respiratory: Negative. Cardiovascular: Negative. Gastrointestinal: Negative. Endocrine: Negative. Genitourinary: Negative. Musculoskeletal: Negative. Skin: Positive for rash. Allergic/Immunologic: Negative. Neurological: Negative. Hematological: Negative. Psychiatric/Behavioral: Negative. All other systems reviewed and are negative. Physical Exam BP 139/87 Pulse 93 Temp (Src) 98.1 (Temporal Artery) Resp 16 Ht 5' 9 (1.75m) Wt 245 lb (111.1kg) BMI 36.16 kg/(m2). Physical Exam Constitutional: She is oriented to person, place, and time. She appears well-developed and well-nourished. HENT: Head: Normocephalic and atraumatic. Right Ear: External ear normal. Left Ear: External ear normal. Nose: Nose normal. Mouth/Throat: Oropharynx is clear and moist. Eyes: Conjunctivae and EOM are normal. Pupils are equal, round, and reactive to light. Neck: Normal range of motion. Neck supple. Cardiovascular: Normal rate, regular rhythm, normal heart sounds and intact distal pulses. Pulmonary/Chest: Effort normal and breath sounds normal. Abdominal: Soft. Bowel sounds are normal. Musculoskeletal: Normal range of motion. Neurological: She is alert and oriented to person, place, and time. She has normal reflexes. Skin: Skin is warm and dry. Rash noted. rash noted to bilateral lower extremities. There is no drainage or abscess noted. Psychiatric: She has a normal mood and affect. Her behavior is normal. Judgment and thought content normal. Nursing note and vitals reviewed. Diagnostic Testing ED Labs Ordered and Reviewed - No data to display Procedures Medical Decision Making MDM emergency department course, patient is well known here to the use emergency department. I instructed the patient I'm not comfortable place her on prednisone she's been on chronic long-term prednisone for a while. I instructed that she needs a follow-up to her primary care physician for this. She did get clindamycin yesterday from an ER. I instructed her to continue using that. She is to follow-up with her primary care physician. ED Course / Clinical Impression Clinical Impressions as of Dec 07 1226 Eczema, unspecified type Plan The Patient was Eloped Condition at time of disposition: stable SIGNATURE: Rosita Leigh, DO Leigh, Rosita Doran, 12/07/17 1227 ED NOTE Observed: 12/07/2017 Status: COMPLETED Source: [facility] 12:20 PM [facility] OTHER [place] REPOSITORY HNO ID: [id number] Author: Jay Cox (Rn), RN Service: Emergency Medicine Author Type: Registered Nurse Type: ED Notes Filed: 12/07/2017 12:34 PM Note Text: Pt not in room for assessment. Did not alert staff before exiting department. ED NOTE Observed: 12/07/2017 Status: COMPLETED Source: [facility] 12:18 PM [facility] REPOSITORY HNO ID: [id number] Author: Sylvia Regalado (Rn), RN Service: Emergency Medicine Author Type: Registered Nurse Type: ED Notes Filed: 12/07/2017 12:18 PM Note Text: ED NOTE Observed: 12/07/2017 Status: COMPLETED Source: [facility] 12:13 PM [facility] REPOSITORY HNO ID: [id number] Author: Sylvia Regalado (Rn), RN Service: Emergency Medicine Author Type: Registered Nurse Type: ED Notes Filed: 12/07/2017 12:15 PM Note Text: Patient states she's here because her eczema is flaring up. Patient states its been going on for awhile and she hasn't seen anyone for it. 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 Fell a few weeks ago, pain in tailbone COMPARISON: 04/13/2017 FINDINGS: The bony alignment of coccyx is without change. There are no convincing findings of acute fracture. IMPRESSION: No evidence of acute fracture. Interpreted By: Farida Mitchell MD Preliminary Report By: Farida Mitchell MD Electronically Signed By: Farida Mitchell MD Dictated Date: 11/30/2017 10:14:48 AM Prelim Date: 11/30/2017 10:14:48 AM Sign Date: 11/30/2017 10:16:22 AM PROGRESS Observed: 11/24/2017 Status: COMPLETED Source: [facility] 2:24 PM [facility] OTHER [place] REPOSITORY HNO ID: [id number] Author: Kena Peterson) Dinorah Service: (none) Author Type: Registered Nurse Type: Progress Notes Filed: 11/24/2017 2:26 PM Note Text: PRIMARY CARE COORDINATION QUICK NOTE Provider Cleo/SYLVAIN Met with patient and spouse in office obtained 1040 and faxed information to [employer] patient assistance program. Discussed at length the importance of medication for her health, discussed what PE are and implications. Discussed options should patient Be declined by [employer] for patient assistance. Patient identified by name and date . Kena Bennett RN CNPTOUTREACH Observed: 11/24/2017 Status: COMPLETED Source: [facility] 12:00 AM CLINIC OTHER CAMPUS REPOSITORY Patient Outreach ([facility]) REGINA PEREIRA ([id number]) 1950 F Date Time Provider Department 11/24/17 KENA BENNETT) [facility] During your visit today, we recorded the following information about you: Kena Bennett RN 11/24/2017 2:26 PM Signed PRIMARY CARE COORDINATION QUICK NOTE Provider Cleo/SYLVAIN Met with patient and spouse in office obtained 1040 and faxed information to [employer] patient assistance program. Discussed at length the importance of medication for her health, discussed what PE are and implications. Discussed options should patient Be declined by [employer] for patient assistance. Patient identified by name and date . 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] Prescriptions as of 11/24/2017 Sig: RIVAROXABAN 15 MG TABLET Take one tab by mouth twice d* RIVAROXABAN 20 MG TABLET Take 1 tablet by mouth daily * WARFARIN 5 MG TABLET Take 1 tablet by mouth once d* LISINOPRIL 20 MG-HYDROCHLOROT* Take 1 tablet by mouth once d* LISINOPRIL 10 MG-HYDROCHLOROT* Take 1 tablet by mouth once d* RISPERIDONE 0.5 MG TABLET Take 0.5 mg by mouth twice da* SERTRALINE 100 MG TABLET Take 100 mg by mouth once jeronimo* Problem List As Of Date 11/24/2017 Noted Resolved Anxiety [F41.9] Compression fracture of lumbar vertebra (HCC) [* Depression [F32.9] DDD (degenerative disc disease), lumbar [M51.36] H/O blood clots [Z86.718] Hypertension [I10] Scoliosis [M41.9] Encounter Status:Closed by KENA BENNETT RN on 11/24/17 PROGRESS Observed: 11/18/2017 Status: COMPLETED Source: [facility] 2:53 PM CLINIC OTHER CAMPUS REPOSITORY O ID: [id number] Author: Kena (Jodie) Dinorah Service: (none) Author Type: Registered Nurse Type: Progress Notes Filed: 11/18/2017 4:17 PM Note Text: PRIMARY CARE COORDINATION INTAKE Provider Action/FYI: Intake completed Patient has been identified by name and date of : Yes Patient identified for Primary Care Coordination from: PCP Determined High Risk due to: Frequent ED utilization for ASC High risk medications (anticoagulants, insulin, narcotics, etc) Chronic symptomatology (dyspnea, pain, etc) High Risk chronic conditions: HTN hx PE GENERAL INFORMATION Demographics reviewed and updated: Yes Lives with: Spouse In general, how would you say your health is? good What is most important to you about your health? Patient stated she does not want to continue to utilize ED as much as she has in the past Please describe: frequently utilizes of ED [facility] and [facility] Have you been in any hospital and/or emergency room outside of [facility] in the last 6 months? YES How many hours of uninterrupted sleep do you usually get at night? Address in Future Encounter Have you had unintentional weight loss or gain? NO Do you have difficulty chewing or swallowing? NO Do you have pain? Pain Chronic, managed by pain management group How many days do you exercise in a typical week? 0 days How intense was your typical exercise? Light (stretching or slow walking) On days when you exercise, for how long did you exercise? 15 min RISK SCREENING Are you blind or do you have serious difficulty seeing, even when wearing glasses? NO Do you have difficulty walking or climbing stairs? NO Do you use any Assistive Devices? NO Have you fallen in the last year? NO Have you had any near falls in the last year? NO Do you have concerns about your personal safety in the home? NO In the last month, have you had trouble getting food? NO. Due to: Not applicable During the last month, have you worried whether your food would run out before you had enough money to buy more? No Can you afford your medications? NO Set patient [facility] with [facility] for 21 days free trial-obtained paperwork for [facility] patient assistance program. Patient to stop by with financial information for paperwork. ACTIVITIES OF DAILY LIVING (ADL) Do you need help from others to perform every day activities such as eating, dressing, grooming, bathing, walking or using the toilet? NO If yes, during the past 4 weeks was someone available to help you? Not applicable INSTRUMENTAL ACTIVITIES OF DAILY LIVING (IADLs) Do you drive a car? NO Do you need help from others to take care of things inside the house, for example: laundry, house cleaning, preparing meals? NO If yes, did you have the help that you needed? Not applicable Do you need help from others with errands outside the house, for example: shopping for groceries or clothes, going to medical appointments? YES Spouse drives If yes, did you have the help that you needed? Yes, some [employer] How understandable is the information that your doctor and nurse have shared with you in the past? Somewhat understandable Have your doctors or nurses helped you establish goals for your health? YES How best do you like to receive information? Verbal Written PHQ2 Over the past 2 weeks, how often have you been bothered by any of the following problems? 1. Little interest or pleasure in doing things: Not At All 2. Feeling down, depressed or hopeless: Not At All GO TO CARE COORDINATION DOCFLOW FOR THE FOLLOWING: Patient AND Community Medication Adherence Nutrition Assessment Patient Activation/Engagement/Confidence Review Health Maintenance: YES Name entered on Care Team Tab: YES Patient - Centered Care Plan: YES Follow - up call: will continue to follow up via care coordination. Discussed recent PE diagnosis and importance of starting medications as directed. The patient indicates understanding of these issues and agrees with the plan. Kena Bennett RN CNPN Observed: 11/18/2017 Status: COMPLETED Source: [facility] 12:00 AM CLINIC OTHER CAMPUS REPOSITORY Telephone ([facility]) REGINA PEREIRA ([id number]) 1950 F Date Time Provider Department 11/18/17 NO HORTON [facility] During your visit today, we recorded the following information about you: No Horton MD, MED 11/18/2017 7:07 AM Signed Pt's thyroid function is low. I have ordered some additional labs. CATE Benites LPN 11/18/2017 10:04 AM Signed Faxed add-on labs to Lab. Svetlana Benites LPN Allergies As of Date: 11/18/2017 (No Known Allergies) Date Reviewed: 11/17/2017 Reviewed by: No Horton - Fully Assessed Reason for Visit: Orders [681] Reason For Visit History Recorded Primary Visit Diagnosis:Elevated TSH [R94.6] Order(s):THYROGLOBULIN AB [SQTGAB] Order #: [id number] FUTURE THYROID PEROXIDASE ANTIBODY BLOOD [SQMICRO] Order #: [id number] FUTURE rivaroxaban (XARELTO) 15 mg tabletTake one tab by mouth twice daily for the next 21 days.Disp: 42 tabletRfl: 0 rivaroxaban (XARELTO) 20 mg tabletTake 1 tablet by mouth daily with dinner.Disp: 30 tabletRfl: 2 Prescriptions as of 11/18/2017 Sig: RIVAROXABAN 15 MG TABLET Take one tab by mouth twice d* RIVAROXABAN 20 MG TABLET Take 1 tablet by mouth daily * WARFARIN 5 MG TABLET Take 1 tablet by mouth once d* LISINOPRIL 20 MG-HYDROCHLOROT* Take 1 tablet by mouth once d* LISINOPRIL 10 MG-HYDROCHLOROT* Take 1 tablet by mouth once d* RISPERIDONE 0.5 MG TABLET Take 0.5 mg by mouth twice da* SERTRALINE 100 MG TABLET Take 100 mg by mouth once jeronimo* Problem List As Of Date 11/18/2017 Noted Resolved Anxiety [F41.9] Compression fracture of lumbar vertebra (HCC) [* Depression [F32.9] DDD (degenerative disc disease), lumbar [M51.36] H/O blood clots [Z86.718] Hypertension [I10] Scoliosis [M41.9] Prescriptions ordered this encounter Disp Refills Start End RIVAROXABAN 15 MG TABLET 42 t* 0 11/18/2017 Sig: Take one tab by mouth twice daily for the next 21 days. RIVAROXABAN 20 MG TABLET 30 t* 2 11/18/2017 Route: ORAL Sig: Take 1 tablet by mouth daily with dinner. Medications Discontinued During This Encounter enoxaparin (LOVENOX) 120 mg/0.8 mL i* 7 Sy* 1 11/17/2017 11/18/2017 Route: SUBCUTANEOUS Sig: Inject 0.8 mL subcutaneously once daily. Disc: Reason for discontinue is not on file. Encounter Status:Closed by NO HORTON on 11/18/17 KAREN Observed: 11/18/2017 Status: COMPLETED Source: [facility] 12:00 AM CLINIC OTHER CAMPUS REPOSITORY Patient Outreach ([facility]) REGINA PEREIRA ([id number]) 1950 F Date Time Provider Department 11/18/17 KENA BENNETT (RN) [facility] During your visit today, we recorded the following information about you: Kena Bennett RN 11/18/2017 4:17 PM Signed PRIMARY CARE COORDINATION INTAKE Provider Action/FYI: Intake completed Patient has been identified by name and date of : Yes Patient identified for Primary Care Coordination from: PCP Determined High Risk due to: Frequent ED utilization for [facility] High risk medications (anticoagulants, insulin, narcotics, etc) Chronic symptomatology (dyspnea, pain, etc) High Risk chronic conditions: HTN hx PE GENERAL INFORMATION Demographics reviewed and updated: Yes Lives with: Spouse In general, how would you say your health is? good What is most important to you about your health? Patient stated she does not want to continue to utilize ED as much as she has in the past Please describe: frequently utilizes of ED [facility] and [place] Have you been in any hospital and/or emergency room outside of [facility] in the last 6 months? YES How many hours of uninterrupted sleep do you usually get at night? Address in Future Encounter Have you had unintentional weight loss or gain? NO Do you have difficulty chewing or swallowing? NO Do you have pain? Pain Chronic, managed by pain management group How many days do you exercise in a typical week? 0 days How intense was your typical exercise? Light (stretching or slow walking) On days when you exercise, for how long did you exercise? 15 min RISK SCREENING Are you blind or do you have serious difficulty seeing, even when wearing glasses? NO Do you have difficulty walking or climbing stairs? NO Do you use any Assistive Devices? NO Have you fallen in the last year? NO Have you had any near falls in the last year? NO Do you have concerns about your personal safety in the home? NO In the last month, have you had trouble getting food? NO. Due to: Not applicable During the last month, have you worried whether your food would run out before you had enough money to buy more? No Can you afford your medications? NO Set patient up with [employer] for 21 days free trial-obtained paperwork for [employer] patient assistance program. Patient to stop by with financial information for paperwork. ACTIVITIES OF DAILY LIVING (ADL) Do you need help from others to perform every day activities such as eating, dressing, grooming, bathing, walking or using the toilet? NO If yes, during the past 4 weeks was someone available to help you? Not applicable INSTRUMENTAL ACTIVITIES OF DAILY LIVING (IADLs) Do you drive a car? NO Do you need help from others to take care of things inside the house, for example: laundry, house cleaning, preparing meals? NO If yes, did you have the help that you needed? Not applicable Do you need help from others with errands outside the house, for example: shopping for groceries or clothes, going to medical appointments? YES Spouse drives If yes, did you have the help that you needed? Yes, some HEALTH [employer]ITER[employer]Y How understandable is the information that your doctor and nurse have shared with you in the past? Somewhat understandable Have your doctors or nurses helped you establish goals for your health? YES How best do you like to receive information? Verbal Written PHQ2 Over the past 2 weeks, how often have you been bothered by any of the following problems? 1. Little interest or pleasure in doing things: Not At All 2. Feeling down, depressed or hopeless: Not At All GO TO CARE COORDINATION DOCFLOW FOR THE FOLLOWING: Patient ANDamp; Community Medication Adherence Nutrition Assessment Patient Activation/Engagement/Confidence Review Health Maintenance: YES Name entered on Care Team Tab: YES Patient - Centered Care Plan: YES Follow - up call: will continue to follow up via care coordination. Discussed recent PE diagnosis and importance of starting medications as directed. The patient indicates understanding of these issues and agrees with the plan. 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] Prescriptions as of 11/18/2017 Sig: RIVAROXABAN 15 MG TABLET Take one tab by mouth twice d* RIVAROXABAN 20 MG TABLET Take 1 tablet by mouth daily * WARFARIN 5 MG TABLET Take 1 tablet by mouth once d* LISINOPRIL 20 MG-HYDROCHLOROT* Take 1 tablet by mouth once d* X ENOXAPARIN SODIUM 120 MG/0.8 * Inject 0.8 mL subcutaneously * LISINOPRIL 10 MG-HYDROCHLOROT* Take 1 tablet by mouth once d* RISPERIDONE 0.5 MG TABLET Take 0.5 mg by mouth twice da* SERTRALINE 100 MG TABLET Take 100 mg by mouth once jeronimo* Problem List As Of Date 11/18/2017 Noted Resolved Anxiety [F41.9] Compression fracture of lumbar vertebra (HCC) [* Depression [F32.9] DDD (degenerative disc disease), lumbar [M51.36] H/O blood clots [Z86.718] Hypertension [I10] Scoliosis [M41.9] Encounter Status:Closed by KENA BENNETT RN on 11/18/17 PROTIME Collected: 11/17/2017 Status: F Source: [facility] 12:53 PM HEALTH SYSTEM REPOSITORY TYPE CODE TESTS RESULT OUT OF REFERENCE UNITS RANGE LAB GPTI(LOINC 9.0-11.5 sec ) Prothrombin Time 11.0 LAB GINR(LOINC ) INR 1.07 Result Comment: Standard Therapy 2.0-3.0 High Dose 2.5-3.5 Performed By: #### GPT #### [place] [address] HYPERCOAG PANEL Collected: 11/17/2017 Status: F Source: [facility] 12:53 PM HEALTH SYSTEM REPOSITORY TYPE CODE TESTS RESULT OUT OF REFERENCE UNITS RANGE LAB PROC2(LOINC ) Protein C SEE BELOW Activity Result Comment: Protein C Functional 122 76-147 % Performing Laboratory: [address] [address] LAB PROCX(LOINC) Protein C SEE BELOW Antigen Result Comment: Prot C Immunologic 116 73-126 % The protein C antigen level was normal. As this is an antigenic test, a functional protein C deficiency cannot be excluded. Suggest ordering protein C functional assay to exclude a functional protein C deficiency. Performing Laboratory: [place] [id number] LAB PROSX(LOINC) Protein S SEE BELOW Antigen Result Comment: Total Protein S 130 74-156 % Free Protein S >200 H 55-148 % The free protein S level is elevated. This is of doubtful clinical significance. Reviewed by Mercy Cueva M.D.,Ph.D ([id number]) Performing Laboratory: [place] [id number] LAB PLASX(LOINC) Plasminogen Activity SEE BELOW Result Comment: Plasminogen Func 132 69-137 % Performing Laboratory: [place] [id number] [place] [address] Performed By: #### HYPCX #### [place] [address] HEMOGRAM/DIFF Collected: 11/17/2017 Status: F Source: [facility] 12:40 PM HEALTH SYSTEM REPOSITORY TYPE CODE TESTS RESULT OUT OF REFERENCE UNITS RANGE LAB WBC(LOINC) 3.98-10.04 thou/cmm WBC High 12.05 LAB RBC(LOINC) 3.93-5.22 mil/cmm RBC 4.55 LAB HGB(LOINC) 11.2-15.7 g/dL Hgb 13.8 LAB HCT(LOINC) 34.1-44.9 % Hct 43.3 LAB MCV(LOINC) 79.4-94.8 fl MCV High 95.2 LAB MCH(LOINC) 25.6-32.2 pg MCH 30.3 LAB MCHC(LOINC 31.6-34.8 % ) MCHC 31.9 LAB RDW(LOINC) 11.7-14.4 % RDW High 16.5 LAB RDWSD(LOIN 36.4-46.3 fl C) RDW SD High 58.0 LAB PLT(LOINC) 182-369 thou/cmm Platelet High 436 LAB MPV(LOINC) 9.4-12.3 fl Low MPV 8.9 LAB SEG(LOINC) % Seg Neutrophil 87.7 LAB IGRE(LOINC % ) Immature Grans 1.10 LAB LYMPH(LOIN % C) Lymphocyte 7.3 LAB MNO(LOINC) % Monocyte 3.6 LAB EOSIN(LOIN % C) Eosinophil 0.1 LAB BASO(LOINC % ) Basophil 0.2 LAB SEGN(LOINC 1.56-6.13 thou/cmm ) Abs. High Neut 10.57 LAB IGAB(LOINC 0.00-0.05 thou/cmm ) Abs High Immature Grans 0.13 LAB LYMN(LOINC 1.18-3.74 thou/cmm ) Low Abs. Lymph 0.88 LAB MONON(LOIN 0.27-0.70 thou/cmm C) Abs. Jackson 0.43 LAB EOSN(LOINC 0.00-0.31 thou/cmm ) Abs. Eosin 0.01 LAB BASON(LOIN 0.01-0.08 thou/cmm C) Abs. Baso 0.02 Result Comment: Smear scanned; tech agrees with automated differential Performed By: #### CBCD1 #### [address] [address] MICROALBUMIN,RANDOM Collected: Status: F Source: [facility] 11/17/2017 12:40 PM [facility] SYSTEM REPOSITORY TYPE CODE TESTS RESULT OUT OF RANGE REFERENCE UNITS LAB CREAU(LOINC mg/dL ) 167.0 Creatinine,U rine LAB MAR(LOINC) 0.20-2.50 mg/dL 2.45 Microalbumin ,Random LAB MACRE(LOINC 0.10-30.00 mg/g ) MA/Creat 14.67 Ratio Performed By: #### MALBR #### [facility] [address] [place] [address] COMPREHENSIVE PANEL Collected: 11/17/2017 Status: F Source: [facility] 12:40 PM HEALTH SYSTEM REPOSITORY TYPE CODE TESTS RESULT OUT OF REFERENCE UNITS RANGE LAB NA(LOINC) 136-145 mEq/L Sodium Blood 136 LAB K(LOINC) 3.5-5.1 mEq/L Potassium Blood 4.5 LAB CL(LOINC) 98-107 mEq/L Chloride Blood 101 LAB CO2(LOINC) 21-32 mEq/L CO2 Blood 22 LAB GLU(LOINC) 70-99 mg/dL Glucose High Blood 100 LAB BUN(LOINC) 7-18 mg/dL BUN Blood 18 LAB CREA(LOINC 0.51-0.95 mg/dL ) Creatinine Blood 0.87 LAB CA(LOINC) 8.5-10.1 mg/dL Calcium Blood 9.8 LAB ALB(LOINC) 3.4-5.0 g/dL Albumin Blood 3.8 LAB AST(LOINC) 9-37 U/L AST-SGOT High Blood 44 LAB BILIT(LOIN 0.2-1.0 mg/dL C) Total Bilirubin 0.8 LAB ANGAP(LOIN 8-16 C) Anion Gap High 18 LAB TP(LOINC) 6.4-8.2 g/dL Total Protein 6.7 LAB ALT(LOINC) 12-78 U/L ALT-SGPT Blood 62 LAB ALKP(LOINC 46-116 U/L ) Alk Phosphatase 75 Performed By: #### P14 #### [facility] [address] [place] [address] MDRD GFR Collected: 11/17/2017 Status: F Source: [facility] 12:40 PM HEALTH SYSTEM REPOSITORY TYPE CODE TESTS RESULT OUT OF RANGE REFERENCE UNITS LAB GFRFN(LOINC >60mL/min/1.73m ) 2 eGFR >60 Result Comment: If the patient is , multiply the result by 1.210. Performed By: #### GFR #### [facility] [address] [place] [address] TSH REFLEX Collected: 11/17/2017 Status: F Source: [address] [facility] SYSTEM REPOSITORY TYPE CODE TESTS RESULT OUT OF REFERENCE UNITS RANGE LAB TSHR(LOINC) 0.358-3.740 uIU/mL High TSH Reflex 6.340 Result Comment: Free T4 reflexed if TSH is less than or greater than the reference range. Performed By: #### TSHR #### [place] [address] FREE THYROXINE Collected: 11/17/2017 Status: F Source: [address] [facility] SYSTEM REPOSITORY TYPE CODE TESTS RESULT OUT OF REFERENCE UNITS RANGE LAB FT4(LOINC) 0.76-1.46 ng/dL Low Free Thyroxine 0.71 Performed By: #### FT4 #### [place] [address] THYRO. PEROXIDASE AB Collected: 11/17/2017 Status: F Source: [address] [facility] REPOSITORY TYPE CODE TESTS RESULT OUT OF REFERENCE UNITS RANGE LAB TPAB(LOINC 0.0-60.0 IU/ml ) Thyro. Peroxidase Ab 42.5 Performed By: #### TPAB #### [place] [address] VITD, 1,25 DIHYDROXY Collected: 11/17/2017 Status: F Source: [address] SYSTEM REPOSITORY TYPE CODE TESTS RESULT OUT OF REFERENCE UNITS RANGE LAB 125VX(LOIN C) VitD, 1,25 Dihydroxy SEE BELOW Result Comment: 1,25 Dihydroxy VitD2 <4.0 pg/mL 1,25 Dihydroxy VitD3 48.9 pg/mL Vit D,1,25 DiOH 48.9 15.0-60.0 pg/mL This test was developed and its performance characteristics determined by [facility] [place] ([facility]). It has not been cleared or approved by the FDA. -[facility] is regulated under CLIA as qualified to perform high-complexity testing. This test is used for clinical purposes. It should not be regarded as investigational or for research. Performing Laboratory: [place] [id number] [place] [address] Performed By: #### 125VX #### [place] [address] THYROGLOBULIN, QUANT Collected: 11/17/2017 Status: F Source: [facility] 12:40 PM HEALTH SYSTEM REPOSITORY TYPE CODE TESTS RESULT OUT OF RANGE REFERENCE UNITS LAB THYQX(LOINC ) SEE BELOW Thyroglobuli n, Quant Result Comment: Thyroglobulin 13.9 1.6-59.9 ng/mL Test analyzed by the Siemens Immulite method TG Antibody Screen <1.0 <14.4 IU/mL Performing Laboratory: [facility] [address] [place] [address] Performed By: #### THYQX #### [facility] [address] [place], [place] [address] PROGRESS Observed: 11/17/2017 Status: COMPLETED Source: [facility] 11:07 AM CLINIC OTHER CAMPUS REPOSITORY HNO ID: [id number] Author: No Horton Service: (none) Author Type: Physician Type: Progress Notes Filed: 11/18/2017 7:40 AM Note Text: Subjective HPI Comments: Regina Pereira is a 67 year old female who presents to [facility]. Patient states she was at the ED last week, dx with blood clots - Xarelto was $800 could not afford. Pharmacist states Heparin is more affordable. Pt currently has bilateral PE's. She tells me that she had a PE last year and did shots at home with a pill. Pt is sedentary with chronic back pain. She sees Pain Management for this. The history is provided by the patient. Review of Systems Constitutional: Negative for fever and malaise/fatigue. HENT: Negative for congestion, hearing loss, sore throat and tinnitus. Eyes: Negative for blurred vision, double vision and photophobia. Respiratory: Positive for shortness of breath (improved over last few days since ED visit). Negative for cough, sputum production and wheezing. Negative Dyspnea Cardiovascular: Negative for chest pain, palpitations and leg swelling. Gastrointestinal: Negative for abdominal pain, blood in stool, constipation, diarrhea, melena, nausea and vomiting. Genitourinary: Negative for dysuria, flank pain, frequency, hematuria and urgency. Musculoskeletal: Negative for back pain, falls, joint pain, myalgias and neck pain. Skin: Negative for rash. Neurological: Negative for dizziness, tingling, tremors, sensory change, speech change, focal weakness, seizures, loss of consciousness and headaches. Endo/Heme/Allergies: Negative for environmental allergies and polydipsia. Does not bruise/bleed easily. Psychiatric/Behavioral: Negative. Negative for depression, hallucinations, memory loss and suicidal ideas. The patient is not nervous/anxious. PAST MEDICAL HISTORY Diagnosis Date - Anxiety - Compression fracture of lumbar vertebra (HCC) - DDD (degenerative disc disease), lumbar - Depression - H/O blood clots - Hypertension - Scoliosis PAST SURGICAL HISTORY Procedure Laterality Date - SECTION HX 1983 - HYSTERECTOMY FAMILY HISTORY Problem Relation Age of Onset - Diabetes Mother - Hypertension Mother - Alcohol/Drug Mother - Cancer Mother - Depression/Anxiety [OTHER] Mother - Alcohol/Drug Father - Diabetes Sister - Hypertension Sister Social History Marital status: Spouse name: Years of education: Number of children: Social History Main Topics Smoking status: Former Smoker Packs/day: 0.00 Years: 0.00 Types: Cigarettes Smokeless status: Never Used Alcohol use: Yes Comment: rarely Drug use: No Sexual activity: Not Currently Partners with: Male Other Topics Concern Caffeine Concern Yes Comment:1 cup tea daily Special Diet No Exercise No Current Meds lisinopril-hydrochlorothiazide (PRINZIDE,ZESTORETIC) 10-12.5 mg per tablet Take 1 tablet by mouth once daily. risperiDONE (RISPERDAL) 0.5 mg tablet Take 0.5 mg by mouth twice daily. sertraline (ZOLOFT) 100 mg tablet Take 100 mg by mouth once daily. HYDROcodone-Acetaminophen (NORCO) 7.5-325 mg per tablet methylPREDNISolone (MEDROL DOSE-PACK) 4 mg Dose-Pack lisinopril-hydrochlorothiazide (PRINZIDE,ZESTORETIC) 20-12.5 mg per tablet oxyCODONE-acetaminophen (PERCOCET) 5-325 mg tablet predniSONE (DELTASONE) 10 mg tablet predniSONE (DELTASONE) 20 mg tablet predniSONE (DELTASONE) 50 mg tab promethazine (PHENERGAN) 25 mg tablet lidocaine (LIDODERM) 5 % Apply 1 Patch as directed every 24 hours. oxyCODONE-acetaminophen (PERCOCET 10) 10-325 mg tablet zolpidem (AMBIEN) 5 mg tablet estropipate (OGEN) 0.75 mg tablet Take 1 tablet by mouth twice daily. Objective Ht 5' 9 (1.75m) Wt 250 lb (113.4kg) BMI 36.90 kg/(m2). Physical Exam Constitutional: She is oriented to person, place, and time and well-developed, well-nourished, and in no distress. HENT: Head: Normocephalic. Right Ear: Hearing, tympanic membrane and ear canal normal. No foreign bodies. Left Ear: Hearing, tympanic membrane and ear canal normal. No foreign bodies. Eyes: Conjunctivae, EOM and lids are normal. Pupils are equal, round, and reactive to light. Lids are everted and swept, no foreign bodies found. Neck: Trachea normal, normal range of motion and full passive range of motion without pain. Neck supple. Normal carotid pulses and no hepatojugular reflux present. Carotid bruit is not present. No edema present. No thyroid mass and no thyromegaly present. Cardiovascular: Normal rate, regular rhythm, normal heart sounds and normal pulses. No murmur heard. Pulmonary/Chest: Effort normal. She has no decreased breath sounds. She has no wheezes. She has no rhonchi. She has no rales. Decreased BS in lower lung kil[place]ore Musculoskeletal: Normal range of motion. She exhibits no edema. Lymphadenopathy: Head (right side): No submandibular and no preauricular adenopathy present. Head (left side): No submandibular and no preauricular adenopathy present. She has no cervical adenopathy. Right cervical: No superficial cervical adenopathy present. Left cervical: No superficial cervical adenopathy present. Right: No supraclavicular adenopathy present. Left: No supraclavicular adenopathy present. Neurological: She is alert and oriented to person, place, and time. Gait normal. Skin: Skin is warm, dry and intact. No rash noted. She is not diaphoretic. No pallor. Psychiatric: Mood, memory, affect and judgment normal. Vitals reviewed. Patient Instructions 1) Increase BP medications to 2 tabs daily. When you finish your current dose, fill the new prescription and go back to one tab daily. 2) Begin using lovenox injections and coumadin tabs daily for the next 5 days. Then have your blood drawn to check INR. ASSESSMENT/PLAN: 1. Other acute pulmonary embolism without acute cor pulmonale (HCC) - ICD9: 415.19, ICD10: I26.99 (primary diagnosis) -I am not sure why pt is developing blood clots. This is her second bout of PE's. She is sedentary with her back pain. SHe tells me she has never had issues with her heart. She has no murmur on auscultation. She has never been checked for a coagulation problem. I will order a panel prior to initiating anticoagulation. -I impressed upon the pt and her how serious blood clots in the lungs can be and that she needs to start anticoagulation. -Apparently, finances are an issue for this couple. They have no prescription coverage with their medicare insurance. They are telling me that they may not be able to afford the lovenox and coumadin I ordered today. I asked them to have the pharmacist call me if they cannot afford meds, so that I can discuss options with the pharmacist. 2. Anxiety - ICD9: 300.00, ICD10: F41.9 -Pt is on an antidepressant. -I need to discuss why she is on risperidal-there is no mention of bipolar disorder or schizophrenia in her problem list. 3. DDD (degenerative disc disease), lumbar - ICD9: 722.52, ICD10: M51.36 Chronic low back pain -Pt sees pain management -I did explain to pt And her that I do not do pain management treatment. 4. H/O blood clots - ICD9: V12.51, ICD10: Z86.718 -Pt tells me that she has had PE's in the past. Etiology is unknown. I suspect she will need anticoagulation lifelong at this time. -I ordered lovenox with coumadin in order to bridge her when her INR is therapeutic. 5. Hypercoagulable state (HCC) - ICD9: 289.81, ICD10: D68.59 -Etiology unknown. I emphasized to pt that labs needed to be checked BEFORE initiating anticoagulation therapy. - HYPERCOAG DIAG PNL 6. Personal history of pulmonary embolism - ICD9: V12.55, ICD10: Z86.711 -this is second bout with PE's. - HYPERCOAG DIAG PNL - PROTHROMBIN TIME/PT 7. Elevated blood pressure reading without diagnosis of hypertension - ICD9: 796.2, ICD10: R03.0 - Goal of BP <140/90 - Will increase lisinopril/HCTZ. Pt does have HTN. - Her BP may be elevated due to PE. - ALBUMIN RANDOM URINE - CBC + DIFF - COMP METABOLIC PANEL - TSH, REFLEX 8. Disorder of bone and articular cartilage - ICD9: 733.90, ICD10: M89.9, M94.9 - VITAMIN D1 25-DIHYDR The patient indicates understanding of these issues and agrees with the plan. During this patient visit I have spent approximately 50 minutes out of 60 in counseling regarding treatment options and medications and coordinating care. 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 She called us to say she can pay for these meds this Friday, not before. I spoke with Kena Bennett, our nurse coordinator to find out if there are any other programs available to this pt so that she can get her meds. I also had staff call the drug rep for xarelto to find out if she had any current coupons. While the pt and her were in the office, I again, offered inpatient hospitalization so that she could be placed on IV heparin to bridge the coumadin. She adamantly refused to go to the hospital. She then said she might be able to go next Friday. I did voice my concern and tried to impress upon the pt and her the seriousness of having bilateral blood clots in the lungs. I told her that this could kill her if left untreated. They both appeared to understand, but were sticking with outpatient treatment. CATE Horton MD, MED CNOV Observed: 11/17/2017 Status: COMPLETED Source: [facility] 11:00 AM CLINIC OTHER CAMPUS REPOSITORY Office Visit ([facility]) REGINA PEREIRA ([id number]) 1950 F Date Time Provider Department 11/17/17 11:00 AM NO HORTON [facility] During your visit today, we recorded the following information about you: Temperature Pulse Blood pressure Weight 97 degrees 88/minute 128/102 113.4 kg Height 1.753 m No Horton MD, MED 11/18/2017 7:40 AM Addendum Subjective HPI Comments: Regina Pereira is a 67 year old female who presents to [facility]. Patient states she was at the ED last week, dx with blood clots - Xarelto was $800 could not afford. Pharmacist states Heparin is more affordable. Pt currently has bilateral PE's. She tells me that she had a PE last year and did ANDquot;shotsANDquot; at home with a pill. Pt is sedentary with chronic back pain. She sees Pain Management for this. The history is provided by the patient. Review of Systems Constitutional: Negative for fever and malaise/fatigue. HENT: Negative for congestion, hearing loss, sore throat and tinnitus. Eyes: Negative for blurred vision, double vision and photophobia. Respiratory: Positive for shortness of breath (improved over last few days since ED visit). Negative for cough, sputum production and wheezing. Negative Dyspnea Cardiovascular: Negative for chest pain, palpitations and leg swelling. Gastrointestinal: Negative for abdominal pain, blood in stool, constipation, diarrhea, melena, nausea and vomiting. Genitourinary: Negative for dysuria, flank pain, frequency, hematuria and urgency. Musculoskeletal: Negative for back pain, falls, joint pain, myalgias and neck pain. Skin: Negative for rash. Neurological: Negative for dizziness, tingling, tremors, sensory change, speech change, focal weakness, seizures, loss of consciousness and headaches. Endo/Heme/Allergies: Negative for environmental allergies and polydipsia. Does not bruise/bleed easily. Psychiatric/Behavioral: Negative. Negative for depression, hallucinations, memory loss and suicidal ideas. The patient is not nervous/anxious. PAST MEDICAL HISTORY Diagnosis Date - Anxiety - Compression fracture of lumbar vertebra (HCC) - DDD (degenerative disc disease), lumbar - Depression - H/O blood clots - Hypertension - Scoliosis PAST SURGICAL HISTORY Procedure Laterality Date - SECTION HX 1983 - HYSTERECTOMY FAMILY HISTORY Problem Relation Age of Onset - Diabetes Mother - Hypertension Mother - Alcohol/Drug Mother - Cancer Mother - Depression/Anxiety [OTHER] Mother - Alcohol/Drug Father - Diabetes Sister - Hypertension Sister Social History Marital status: Spouse name: Years of education: Number of children: Social History Main Topics Smoking status: Former Smoker Packs/day: 0.00 Years: 0.00 Types: Cigarettes Smokeless status: Never Used Alcohol use: Yes Comment: rarely Drug use: No Sexual activity: Not Currently Partners with: Male Other Topics Concern Caffeine Concern Yes Comment:1 cup tea daily Special Diet No Exercise No Current Meds lisinopril-hydrochlorothiazide (PRINZIDE,ZESTORETIC) 10-12.5 mg per tablet Take 1 tablet by mouth once daily. risperiDONE (RISPERDAL) 0.5 mg tablet Take 0.5 mg by mouth twice daily. sertraline (ZOLOFT) 100 mg tablet Take 100 mg by mouth once daily. HYDROcodone-Acetaminophen (NORCO) 7.5-325 mg per tablet methylPREDNISolone (MEDROL DOSE-PACK) 4 mg Dose-Pack lisinopril-hydrochlorothiazide (PRINZIDE,ZESTORETIC) 20-12.5 mg per tablet oxyCODONE-acetaminophen (PERCOCET) 5-325 mg tablet predniSONE (DELTASONE) 10 mg tablet predniSONE (DELTASONE) 20 mg tablet predniSONE (DELTASONE) 50 mg tab promethazine (PHENERGAN) 25 mg tablet lidocaine (LIDODERM) 5 % Apply 1 Patch as directed every 24 hours. oxyCODONE-acetaminophen (PERCOCET 10) 10-325 mg tablet zolpidem (AMBIEN) 5 mg tablet estropipate (OGEN) 0.75 mg tablet Take 1 tablet by mouth twice daily. Objective Ht 5' 9ANDquot; (1.75m) Wt 250 lb (113.4kg) BMI 36.90 kg/(m2). Physical Exam Constitutional: She is oriented to person, place, and time and well-developed, well-nourished, and in no distress. HENT: Head: Normocephalic. Right Ear: Hearing, tympanic membrane and ear canal normal. No foreign bodies. Left Ear: Hearing, tympanic membrane and ear canal normal. No foreign bodies. Eyes: Conjunctivae, EOM and lids are normal. Pupils are equal, round, and reactive to light. Lids are everted and swept, no foreign bodies found. Neck: Trachea normal, normal range of motion and full passive range of motion without pain. Neck supple. Normal carotid pulses and no hepatojugular reflux present. Carotid bruit is not present. No edema present. No thyroid mass and no thyromegaly present. Cardiovascular: Normal rate, regular rhythm, normal heart sounds and normal pulses. No murmur heard. Pulmonary/Chest: Effort normal. She has no decreased breath sounds. She has no wheezes. She has no rhonchi. She has no rales. Decreased BS in lower lung kilgore Musculoskeletal: Normal range of motion. She exhibits no edema. Lymphadenopathy: Head (right side): No submandibular and no preauricular adenopathy present. Head (left side): No submandibular and no preauricular adenopathy present. She has no cervical adenopathy. Right cervical: No superficial cervical adenopathy present. Left cervical: No superficial cervical adenopathy present. Right: No supraclavicular adenopathy present. Left: No supraclavicular adenopathy present. Neurological: She is alert and oriented to person, place, and time. Gait normal. Skin: Skin is warm, dry and intact. No rash noted. She is not diaphoretic. No pallor. Psychiatric: Mood, memory, affect and judgment normal. Vitals reviewed. Patient Instructions 1) Increase BP medications to 2 tabs daily. When you finish your current dose, fill the new prescription and go back to one tab daily. 2) Begin using lovenox injections and coumadin tabs daily for the next 5 days. Then have your blood drawn to check INR. ASSESSMENT/PLAN: 1. Other acute pulmonary embolism without acute cor pulmonale (HCC) - ICD9: 415.19, ICD10: I26.99 (primary diagnosis) -I am not sure why pt is developing blood clots. This is her second bout of PE's. She is sedentary with her back pain. SHe tells me she has never had issues with her heart. She has no murmur on auscultation. She has never been checked for a coagulation problem. I will order a panel prior to initiating anticoagulation. -I impressed upon the pt and her how serious blood clots in the lungs can be and that she needs to start anticoagulation. -Apparently, finances are an issue for this couple. They have no prescription coverage with their medicare insurance. They are telling me that they may not be able to afford the lovenox and coumadin I ordered today. I asked them to have the pharmacist call me if they cannot afford meds, so that I can discuss options with the pharmacist. 2. Anxiety - ICD9: 300.00, ICD10: F41.9 -Pt is on an antidepressant. -I need to discuss why she is on risperidal-there is no mention of bipolar disorder or schizophrenia in her problem list. 3. DDD (degenerative disc disease), lumbar - ICD9: 722.52, ICD10: M51.36 Chronic low back pain -Pt sees pain management -I did explain to pt And her that I do not do pain management treatment. 4. H/O blood clots - ICD9: V12.51, ICD10: Z86.718 -Pt tells me that she has had PE's in the past. Etiology is unknown. I suspect she will need anticoagulation lifelong at this time. -I ordered lovenox with coumadin in order to bridge her when her INR is therapeutic. 5. Hypercoagulable state (HCC) - ICD9: 289.81, ICD10: D68.59 -Etiology unknown. I emphasized to pt that labs needed to be checked BEFORE initiating anticoagulation therapy. - HYPERCOAG DIAG PNL 6. Personal history of pulmonary embolism - ICD9: V12.55, ICD10: Z86.711 -this is second bout with PE's. - HYPERCOAG DIAG PNL - PROTHROMBIN TIME/PT 7. Elevated blood pressure reading without diagnosis of hypertension - ICD9: 796.2, ICD10: R03.0 - Goal of BP ANDlt;140/90 - Will increase lisinopril/HCTZ. Pt does have HTN. - Her BP may be elevated due to PE. - ALBUMIN RANDOM URINE - CBC + DIFF - COMP METABOLIC PANEL - TSH, REFLEX 8. Disorder of bone and articular cartilage - ICD9: 733.90, ICD10: M89.9, M94.9 - VITAMIN D1 25-DIHYDR The patient indicates understanding of these issues and agrees with the plan. During this patient visit I have spent approximately 50 minutes out of 60 in counseling regarding treatment options and medications and coordinating care. 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 She called us to say she can pay for these meds this Friday, not before. I spoke with Kena Bennett, our nurse coordinator to find out if there are any other programs available to this pt so that she can get her meds. I also had staff call the drug rep for [employer] to find out if she had any current coupons. While the pt and her were in the office, I again, offered inpatient hospitalization so that she could be placed on IV heparin to bridge the coumadin. She adamantly refused to go to the hospital. She then said she might be able to go next Friday. I did voice my concern and tried to impress upon the pt and her the seriousness of having bilateral blood clots in the lungs. I told her that this could kill her if left untreated. They both appeared to understand, but were sticking with outpatient treatment. DAG No Horton MD, MED No Horton MD, MED 11/17/2017 11:52 AM Signed 1) Increase BP medications to 2 tabs daily. When you finish your current dose, fill the new prescription and go back to one tab daily. 2) Begin using lovenox injections and coumadin tabs daily for the next 5 days. Then have your blood drawn to check INR. Referring Provider: NO HORTON [[id number]] Allergies As of Date: 11/17/2017 (No Known Allergies) Date Reviewed: 11/17/2017 Reviewed by: No Horton - Fully Assessed Reason for Visit: Establish Care [42] Primary Visit Diagnosis:Other acute pulmonary embolism without acute cor pulmonale (HCC) [I26.99] Other Visit Diagnoses:Anxiety [F41.9] DDD (degenerative disc disease), lumbar [M51.36] H/O blood clots [Z86.718] Hypercoagulable state (HCC) [D68.59] Personal history of pulmonary embolism [Z86.711] Elevated blood pressure reading without diagnosis of hypertension [R03.0] Disorder of bone and articular cartilage [M89.9, M94.9] Order(s):enoxaparin (LOVENOX) 120 mg/0.8 mL injectionInject 0.8 mL subcutaneously once daily.Disp: 7 SyringeRfl: 1 warfarin (COUMADIN) 5 mg tabletTake 1 tablet by mouth once daily.Disp: 30 tabletRfl: 1 HYPERCOAG DIAG PNL [SQHYPER] Order #: [id number] FUTURE PROTHROMBIN TIME/PT [SQPT] Order #: [id number] FUTURE ALBUMIN RANDOM URINE [SQUALBR] Order #: [id number] FUTURE CBC + DIFF [SQCBCDIF] Order #: [id number] FUTURE COMP METABOLIC PANEL [SQCMP] Order #: [id number] FUTURE TSH, REFLEX [6483326] Order #: [id number] FUTURE VITAMIN D1 25-DIHYDR [GDMKC500] Order #: [id number] FUTURE lisinopril-hydrochlorothiazide (PRINZIDE, ZESTORETIC) 20-25 mg per tabletTake 1 tablet by mouth once daily.Disp: 30 tabletRfl: 2 Prescriptions as of 11/17/2017 Sig: LISINOPRIL 10 MG-HYDROCHLOROT* Take 1 tablet by mouth once d* RISPERIDONE 0.5 MG TABLET Take 0.5 mg by mouth twice da* SERTRALINE 100 MG TABLET Take 100 mg by mouth once jeronimo* ENOXAPARIN SODIUM 120 MG/0.8 * Inject 0.8 mL subcutaneously * WARFARIN 5 MG TABLET Take 1 tablet by mouth once d* LISINOPRIL 20 MG-HYDROCHLOROT* Take 1 tablet by mouth once d* Medication notes this encounter HYDROCODONE 7.5 MG-ACETAMINOPHEN 325 MG TABLET >> Svetlana Benites LPN 11/17/2017 11:05 AM >> SVETLANA BENITES FriNov 17, 2017 11:05 AM Not taking METHYLPREDNISOLONE 4 MG TABLETS IN A DOSE PACK >> Svetlana Benites LPN 11/17/2017 11:06 AM >> SVETLANA BENITES FriNov 17, 2017 11:06 AM Not taking LISINOPRIL 20 MG-HYDROCHLOROTHIAZIDE 12.5 MG TABLET >> Svetlana Benites LPN 11/17/2017 11:05 AM >> SVETLANA BENITES FriNov 17, 2017 11:05 AM Not taking >> Svetlana Benites LPN 11/17/2017 11:05 AM >> SVETLANA BENITES FriNov 17, 2017 11:05 AM Dose change OXYCODONE-ACETAMINOPHEN 5 MG-325 MG TABLET >> Svetlana Benites LPN 11/17/2017 11:06 AM >> SVETLANA BENITES [facility] Nov 17, 2017 11:06 AM Not taking PREDNISONE 10 MG TABLET >> Svetlana Benites [facility] 11/17/2017 11:06 AM >> SVETLANA BENITES [facility] Nov 17, 2017 11:06 AM Not taking PREDNISONE 20 MG TABLET >> Svetlana Benites [facility] 11/17/2017 11:06 AM >> SVETLANA BENITES [facility] Nov 17, 2017 11:06 AM Not taking PREDNISONE 50 MG TABLET >> Svetlana Benites [facility] 11/17/2017 11:06 AM >> SVETLANA BENITES [facility] Nov 17, 2017 11:06 AM Not taking PROMETHAZINE 25 MG TABLET >> Svetlana Benites [facility] 11/17/2017 11:06 AM >> SVETLANA EBNITES [facility] Nov 17, 2017 11:06 AM Not ktaing LIDOCAINE 5 % TOPICAL PATCH >> Svetlana Benites [facility] 11/17/2017 11:05 AM >> SVETLANA BENITES [facility] Nov 17, 2017 11:05 AM Not taking OXYCODONE-ACETAMINOPHEN 10 MG-325 MG TABLET >> Svetlana Benites [facility] 11/17/2017 11:06 AM >> SVETLANA BENITES [facility] Nov 17, 2017 11:06 AM Not taking ZOLPIDEM 5 MG TABLET >> Svetlana Benites [facility] 11/17/2017 11:06 AM >> SVETLANA BENITES [facility] Nov 17, 2017 11:06 AM Not taking ESTROPIPATE 0.75 MG TABLET >> Svetlana Benites [facility] 11/17/2017 11:05 AM >> SVETLANA BENITES [facility] Nov 17, 2017 11:05 AM Not taking Problem List As Of Date 11/17/2017 Noted Resolved Anxiety [F41.9] Compression fracture of lumbar vertebra (HCC) [* Depression [F32.9] DDD (degenerative disc disease), lumbar [M51.36] H/O blood clots [Z86.718] Hypertension [I10] Scoliosis [M41.9] Other instructions from your clinician: 1) Increase BP medications to 2 tabs daily. When you finish your current dose, fill the new prescription and go back to one tab daily. 2) Begin using lovenox injections and coumadin tabs daily for the next 5 days. Then have your blood drawn to check INR. Prescriptions ordered this encounter Disp Refills Start End ENOXAPARIN SODIUM 120 MG/0.8 ML SUBQ* 7 Sy* 1 11/17/2017 Route: SUBCUTANEOUS Sig: Inject 0.8 mL subcutaneously once daily. WARFARIN 5 MG TABLET 30 t* 1 11/17/2017 Route: ORAL Sig: Take 1 tablet by mouth once daily. LISINOPRIL 20 MG-HYDROCHLOROTHIAZIDE* 30 t* 2 11/17/2017 Route: ORAL Sig: Take 1 tablet by mouth once daily. Medications Discontinued During This Encounter estropipate (OGEN) 0.75 mg tablet 60 t* 11 02/07/2017 11/17/2017 Route: ORAL Sig: Take 1 tablet by mouth twice daily. Disc: Reason for discontinue is not on file. HYDROcodone-Acetaminophen (NORCO) 7.* 09/10/2017 11/17/2017 Class: Historical Med Sig: Disc: Reason for discontinue is not on file. lidocaine (LIDODERM) 5 % 7 Pa* 0 07/31/2017 11/17/2017 Class: Print RX Route: TRANSDERMAL Sig: Apply 1 Patch as directed every 24 hours. Disc: Reason for discontinue is not on file. lisinopril-hydrochlorothiazide (PRIN* 08/08/2017 11/17/2017 Class: Historical Med Sig: Disc: Reason for discontinue is not on file. methylPREDNISolone (MEDROL DOSE-PACK* 09/04/2017 11/17/2017 Class: Historical Med Sig: Disc: Reason for discontinue is not on file. oxyCODONE-acetaminophen (PERCOCET 10* 04/14/2017 11/17/2017 Class: Historical Med Sig: Disc: Reason for discontinue is not on file. oxyCODONE-acetaminophen (PERCOCET) 5* 11/03/2017 11/17/2017 Class: Historical Med Sig: Disc: Reason for discontinue is not on file. predniSONE (DELTASONE) 10 mg tablet 10/18/2017 11/17/2017 Class: Historical Med Sig: Disc: Reason for discontinue is not on file. predniSONE (DELTASONE) 20 mg tablet 11/08/2017 11/17/2017 Class: Historical Med Sig: Disc: Reason for discontinue is not on file. zolpidem (AMBIEN) 5 mg tablet 04/04/2017 11/17/2017 Class: Historical Med Sig: Disc: Reason for discontinue is not on file. promethazine (PHENERGAN) 25 mg tablet 11/09/2017 11/17/2017 Class: Historical Med Sig: Disc: Reason for discontinue is not on file. predniSONE (DELTASONE) 50 mg tab 11/14/2017 11/17/2017 Class: Historical Med Sig: Disc: Reason for discontinue is not on file. Disposition: Return in about 2 weeks (around 12/01/2017) for blood clots. Follow-up and Disposition History Recorded Encounter Status:Closed by NO HORTON on 11/17/17 CTA CHEST W/ + W/O Observed: 11/13/2017 Status: F Source: [employer] 1:30 PM SYSTEM REPOSITORY Patient Name: REGINA PEREIRA CT Exam Date/Time 11/13/2017 13:30:15 EDT Exam CTA Chest w/ + w/o Contrast Ordering Physician MD PVAON JEFFREY B Accession Number [id number] CPT4 Codes 14126 (), Q9967 () Reason For Exam sob, h/o remote PE, r/o recurrent PE Report CTA chest with and without contrast HISTORY: Short of breath COMPARISON: 07/25/2016 Protocol: 1 mm axial images with and without intravenous contrast, 3-D rendering performed by me on an independent workstation Multiple bilateral acute pulmonary emboli. No aortic dissection. Small right pleural effusion. No lymphadenopathy. The adrenal glands are normal. IMPRESSION: Multiple bilateral acute pulmonary emboli. CTR: I talked with Dr. Pavon about the findings on 11/13/2017 at 1:30 PM. Report Dictated on Workstation: [id number] Final Dictated: 11/13/2017 1:30 pm Dictating Physician: MD COE MALAY Signed Date and Time: 11/13/2017 1:33 pm Signed by: MD COE MALAY Transcribed Date and Time: 11/13/2017 1:30 HEMOGRAM W/ AUTODIFF Collected: 11/13/2017 Status: F Source: [employer] 12:15 PM SYSTEM REPOSITORY TYPE CODE TESTS RESULT OUT OF REFERENCE UNITS RANGE LAB IWBC 3.6-10.7 10*3/uL WBC 7.9 LAB RBC 3.80-5.20 10*6/uL RBC 4.58 LAB HGB 11.7-16.0 g/dL Hemoglobin 14.2 LAB HCT 35.0-47.0 % Hematocrit 42.0 LAB MCV 79.0-98.0 fL MCV 91.7 LAB MCH 26.0-34.0 pg MCH 31.1 LAB MCHC 32.0-36.0 % MCHC 33.9 LAB RDW 11.5-14.5 % RDW High 17.7 LAB PLT 140-440 10*3/uL Platelet High 479 LAB MPV 7.4-10.4 fL Low MPV 6.1 LAB GRAN% 40.0-80.0 % Granulocytes 76.9 LAB LYMP% 20.0-40.0 % Low Lymphocytes 14.5 LAB MONO% 2.0-10.0 % Monocytes 6.5 LAB EOS% 1.0-6.0 % Eosinophils 1.2 LAB BAS% 0.0-2.0 % Basophils 0.9 LAB ANC 1.8-7.0 10*3/uL Abs Neutrophile Cnt 6.0 LAB ALC 1.0-4.3 10*3/uL Abs Lymph Cnt 1.1 LAB AMC 0.0-0.8 10*3/uL Abs Monocyte Cnt 0.5 LAB AEC 0.0-0.5 10*3/uL Abs Eosin Cnt 0.1 LAB ABC 0.0-0.2 10*3/uL Abs Baso Cnt 0.1 Performed By: #### HEMDF, ESR, BNP3, BMP3, TROPN #### The performing lab is in the report. SED RATE Collected: 11/13/2017 Status: F Source: [employer] 12:15 PM SYSTEM REPOSITORY TYPE CODE TESTS RESULT OUT OF RANGE REFERENCE UNITS LAB ESR 0-20 mm/h High Sed Rate 32 Performed By: #### HEMDF, ESR, BNP3, BMP3, TROPN #### The performing lab is in the report. NT PRO BNP Collected: 11/13/2017 Status: F Source: [employer] 12:15 PM SYSTEM REPOSITORY TYPE CODE TESTS RESULT OUT OF RANGE REFERENCE UNITS LAB BNP3 0-125 pg/mL High NT pro 2758 BNP Performed By: #### HEMDF, ESR, BNP3, BMP3, TROPN #### The performing lab is in the report. BASIC METABOLIC PANEL Collected: 11/13/2017 Status: F Source: [employer] 12:15 PM SYSTEM REPOSITORY TYPE CODE TESTS RESULT OUT OF REFERENCE UNITS RANGE LAB NA3 135-145 mmol/L Sodium 138 LAB K3 3.5-5.1 mmol/L Potassium 3.8 LAB CL3 98-109 mmol/L Chloride 103 LAB CO23 21-32 mmol/L Carbon Dioxide 25 LAB ANIN3 Anion Gap 10 LAB GLUC3 70-100 mg/dL Glucose High 133 LAB BUN3 7-25 mg/dL Urea Nitrogen 14 LAB CRET3 0.55-1.40 mg/dL Creatinine 0.88 LAB GF3BR >60 mL/min eGFR >60.0 LAB GF3WR >60 mL/min eGFR OTHER >60.0 Result Comment: Source- MDRD equation with creatinine calibration to IDMS(NKDEP) eGFR not recommended for drug dose adjustment LAB CA3 8.2-10.1 mg/dL Calcium 9.6 Performed By: #### HEMDF, ESR, BNP3, BMP3, TROPN #### The performing lab is in the report. TROPONIN I Collected: 11/13/2017 Status: F Source: [employer] 12:15 PM SYSTEM REPOSITORY TYPE CODE TESTS RESULT OUT OF REFERENCE UNITS RANGE LAB TROP4 0.000-0.045 ng/mL Troponin I 0.044 Result Comment: 0.046 - 0.400 = Indeterminate > 0.400 = Consider Myocardial Injury Performed By: #### HEMDF, ESR, BNP3, BMP3, TROPN #### The performing lab is in the report. CBC Collected: 11/09/2017 Status: F Source: [facility] 9:35 AM [facility] REPOSITORY TYPE CODE TESTS RESULT OUT OF REFERENCE UNITS RANGE LAB WBC(LOINC) 4.50-10.80 10 3/mcL WBC 6.40 LAB RBCCT(LOINC 4.10-5.30 10 6/mcL ) Low RBC 4.05 LAB HGB(LOINC) 12.0-16.0 G/dL Hgb 12.7 LAB HCT(LOINC) 34.0-46.0 % Hct 37.7 LAB MCV(LOINC) 80.0-99.0 fL MCV 93.0 LAB MCH(LOINC) 27.0-33.0 pg MCH 31.4 LAB MCHC(LOINC) 32.0-36.0 G/dL MCHC 33.7 LAB RDW(LOINC) 11.5-15.5 % High RDW 17.9 LAB PLT(LOINC) 150-450 10 3/mcL Platelet 416 LAB MPV(LOINC) 6.6-10.5 fL MPV 6.6 Performed By: #### GFR, LIP, ADIFF, CMP, CBC, ANEU #### [address] [address] .AUTO DIFF Collected: 11/09/2017 Status: F Source: [facility] 9:35 AM [facility] REPOSITORY TYPE CODE TESTS RESULT OUT OF REFERENCE UNITS RANGE LAB LUIS(LOINC) 50.0-75.0 % High Neutrophil % 87.9 LAB LYM(LOINC) 20.0-40.0 % Low Lymphocyte % 7.1 LAB MON(LOINC) 2.0-13.0 % Monocyte % 3.6 LAB EO(LOINC) 0.0-6.0 % Eosinophil % 1.0 LAB BAS(LOINC) 0.0-2.5 % Basophil % 0.4 LAB ABLYM(LOIN 0.90-4.32 10 3/mcL C) Low Lymphocyte, 0.50 Absolute LAB LAVINIA(LOINC 0.09-1.40 10 3/mcL ) Monocyte, 0.20 Absolute LAB AEOS(LOINC 0.00-0.65 10 3/mcL ) Eosinophil, 0.10 Absolute LAB ABAS(LOINC 0.00-0.27 10 3/mcL ) Basophil, 0.00 Absolute Performed By: #### GFR, LIP, ADIFF, CMP, CBC, ANEU #### [address] [address] .NEUABS Collected: 11/09/2017 Status: F Source: [facility] 9:35 AM [facility] REPOSITORY TYPE CODE TESTS RESULT OUT OF REFERENCE UNITS RANGE LAB ANEU(LOINC) 2.25-8.10 10 3/mcL Neutrophil, 5.60 Absolute Performed By: #### GFR, LIP, ADIFF, CMP, CBC, ANEU #### [address] [address] LIP Collected: 11/09/2017 Status: F Source: [facility] 9:35 AM [facility] REPOSITORY TYPE CODE TESTS RESULT OUT OF REFERENCE UNITS RANGE LAB LIP(LOINC) 73-393 U/L Lipase Level 177 Performed By: #### GFR, LIP, ADIFF, CMP, CBC, ANEU #### [place] [address] .GFR Collected: 11/09/2017 Status: F Source: [facility] 9:35 AM [facility] REPOSITORY TYPE CODE TESTS RESULT OUT OF REFERENCE UNITS RANGE LAB GFRAA(LOINC ml/min/1.73 ) sqm GFR >60 Cymro Result Comment: GFR Population mean for , Non- Americans Ages 20-29 = 116 mL/min/1.73 sq.m. Ages 30-39 = 107 mL/min/1.73 sq.m. Ages 40-49 = 99 mL/min/1.73 sq.m. Ages 50-59 = 93 mL/min/1.73 sq.m. Ages 60-69 = 85 mL/min/1.73 sq.m. Ages 70+ = 75 mL/min/1.73 sq.m. Chronic Kidney Disease: Less than 60 mL/min/1.73 square meters End Stage Renal Disease: Less than 15 mL/min/1.73 square meters LAB GFRNO(LOINC) ml/min/1.73sqm GFR Non- >60 Result Comment: GFR Population mean for , Non- Americans Ages 20-29 = 116 mL/min/1.73 sq.m. Ages 30-39 = 107 mL/min/1.73 sq.m. Ages 40-49 = 99 mL/min/1.73 sq.m. Ages 50-59 = 93 mL/min/1.73 sq.m. Ages 60-69 = 85 mL/min/1.73 sq.m. Ages 70+ = 75 mL/min/1.73 sq.m. Chronic Kidney Disease: Less than 60 mL/min/1.73 square meters End Stage Renal Disease: Less than 15 mL/min/1.73 square meters Performed By: #### GFR, LIP, ADIFF, CMP, CBC, ANEU #### [address] [address] CMP Collected: 11/09/2017 Status: F Source: [facility] 9:35 AM [facility] REPOSITORY TYPE CODE TESTS RESULT OUT OF REFERENCE UNITS RANGE LAB GLU(LOINC) 82-115 mg/dL High Glucose Level 142 LAB NA(LOINC) 136-145 mEq/L Sodium Level 136 LAB K(LOINC) 3.5-5.0 mEq/L Potassium Level 4.8 Result Comment: Specimen slightly hemolyzed. LAB CL(LOINC) 98-110 mEq/L Chloride 102 LAB CO2(LOINC) 22-32 mEq/L CO2 23 LAB EBAL(LOINC) 4.0-15.0 mEq/L Electrolyte Balance 11.0 LAB BUN(LOINC) 8.0-22.0 mg/dL BUN 15.0 LAB CRE(LOINC) 0.50-1.20 mg/dL Creatinine Lvl (s) 0.71 LAB BC(LOINC) 10.0-22.0 ratio BUN/Creatinine Ratio 21.1 LAB CA(LOINC) 8.4-10.1 mg/dL Calcium Lvl 9.2 LAB PROT(LOINC) 6.0-8.5 G/dL Total Protein 6.5 LAB ALB(LOINC) 3.2-4.8 G/dL Albumin Low Level 3.1 LAB GLB(LOINC) 1.5-3.8 G/dL Globulin 3.4 LAB AG(LOINC) 0.9-1.6 ratio A/G Ratio 0.9 LAB BILT(LOINC) 0.2-1.2 mg/dL Bili Total 0.7 LAB AP(LOINC) 38-126 U/L Alk Phos 78 LAB AST(LOINC) 8-34 U/L AST/SGOT High 61 Result Comment: Specimen slightly hemolyzed. LAB ALT(LOINC) 10-49 U/L High ALT/SGPT 138 Performed By: #### GFR, LIP, ADIFF, CMP, CBC, ANEU #### [address] [address] XR ABDOMEN SERIES Observed: 11/09/2017 Status: F Source: [facility] W/CHEST 1 VIEW 8:58 AM [facility]OUNDATION REPOSITORY ORIGINAL UPRIGHT AND SUPINE VIEWS OF THE ABDOMEN, 1 VIEW OF THE CHEST CLINICAL STATEMENT: abdominal pain. COMPARISON: None FINDINGS: Upright AP view of the chest demonstrates an unremarkable cardiomediastinal silhouette for projection. The lungs appear clear. The patient's chin overlies the apices bilaterally. Upright view of the abdomen demonstrates no air-fluid levels or free air. The bowel gas pattern is nonspecific with a few mildly prominent loops of small bowel in the midabdomen measuring up to 3.6 cm. Degenerative changes noted in the spine. IMPRESSION: Nonspecific bowel gas pattern with a few mildly dilated loops of small bowel in the midabdomen without air-fluid levels. Interpreted By: Julieth Clarke Preliminary Report By: Julieth Clarke Electronically Signed By: Julieth Clarke Dictated Date: 11/09/2017 10:24:46 AM Prelim Date: 11/09/2017 10:24:46 AM Sign Date: 11/09/2017 10:27:02 AM GLUCOSE,BEDSIDE Collected: 11/02/2017 Status: F Source: [employer] 10:33 AM SYSTEM REPOSITORY TYPE CODE TESTS RESULT OUT OF RANGE REFERENCE UNITS LAB BGLU 70-100 mg/dL 97 Glucose,Beds galdino Result Comment: Test performed by glucose meter. Results may be 10%-15% lower than serum/plasma values. (CLIA ID [id number]) Performed By: #### BGLU #### The performing lab is in the report. CR SACRUM/COCCYX 2+ VIEWS Observed: 11/02/2017 Status: F Source: [employer] 10:30 AM SYSTEM REPOSITORY Patient Name: REGINA PEREIRA Diagnostic Radiology Exam Date/Time 11/02/2017 10:18:02 EDT Exam CR Sacrum/Coccyx 2+ Views Ordering Physician BELKYS CANCINO NICOLE A Accession Number [id number] CPT4 Codes 57544 () Reason For Exam midline tenderness s/p fall Report Examination: Sacrococcyx Clinical Indication: Pain Comparison: 04/12/2017 Findings: Two AP and a lateral view of the sacrococcyx demonstrates no gross evidence of fracture or subluxation. There is no widening of the synchondroses. Impression: No evidence of fracture, subluxation, or gross osseous abnormality of the sacrum and coccyx. Report Dictated on Final Dictated: 11/02/2017 10:30 am Dictating Physician: MD ISLAS NEIL Signed Date and Time: 11/02/2017 10:31 am Signed by: MD ISLAS NEIL Transcribed Date and Time: 11/02/2017 10:30 ED NOTE Observed: 10/18/2017 Status: COMPLETED Source: [place] 6:45 PM [facility] REPOSITORY HNO ID: [id number] Author: Mami (Rn) JODIE King Service: Emergency Medicine Author Type: Registered Nurse Type: ED Notes Filed: 10/18/2017 6:45 PM Note Text: Pt given discharge instructions. She verbalizes understanding and denies further questions. Spouse insists on pushing pt to waiting room in wheelchair. ED PROV NOTE Observed: 10/18/2017 Status: COMPLETED Source: [place] 6:40 PM [facility] REPOSITORY HNO ID: [id number] Author: Alexis Giang V Service: Emergency Medicine Author Type: Physician Type: ED Provider Notes Filed: 10/18/2017 6:50 PM Note Text: ED Provider Note Patient Name: Regina Pereira SERVICE DATE: 10/18/17 History Patient presents with: Fall Eczema Low Back Pain HPI Patient presents with exacerbation of chronic low back pain. She states initially she slipped on some steps landing on her butt today and has exacerbation in her coccyx area. She denies any neurologic symptoms no change in bowel or bladder function or saddle anesthesia. She was seen earlier this morning at [facility] the ED for her dermatitis/eczema but had also mentioned that she was having back pain and it was noted and there are notes she was specifically asking for Percocet. Patient states she is out of her Percocet I reviewed her prescription report, she was prescribed 84 oxycodone on the fifth of this month and should still have a supply. This was provided by her pain management physician patient sitting comfortably in the bed in no acute distress and has no other complaints. PAST MEDICAL HISTORY Diagnosis Date - Anxiety - Compression fracture of lumbar vertebra (HCC) - DDD (degenerative disc disease), lumbar - Depression - Hypertension - Scoliosis PAST SURGICAL HISTORY Procedure Laterality Date - SECTION HX - HYSTERECTOMY No family history on file. Social History Social History Main Topics - Smoking status: Never Smoker - Smokeless tobacco: Never Used - Alcohol use No - Drug use: No - Sexual activity: Not Asked ALLERGIES Allergen Reactions - Morphine Itching Review of Systems Constitutional: Negative for fever. Cardiovascular: Negative for chest pain and palpitations. Gastrointestinal: Negative for abdominal pain, nausea and vomiting. Musculoskeletal: Positive for back pain. Negative for neck pain and neck stiffness. Skin: Negative for rash and wound. Neurological: Negative for syncope and weakness. Physical Exam BP 143/67 Pulse 97 Temp 97.3 Resp 12 SpO2 98% Physical Exam Constitutional: She is oriented to person, place, and time. She appears well-developed and well-nourished. HENT: Head: Normocephalic and atraumatic. Eyes: Conjunctivae are normal. Pupils are equal, round, and reactive to light. Cardiovascular: Normal rate, regular rhythm, normal heart sounds and intact distal pulses. Pulmonary/Chest: Effort normal and breath sounds normal. Abdominal: Soft. There is no tenderness. Musculoskeletal: Normal range of motion. No reproducible tenderness deformity or bruising of the spine or coccyx Neurological: She is alert and oriented to person, place, and time. Skin: Skin is warm and dry. Nursing note and vitals reviewed. Diagnostic Testing ED Labs Ordered and Reviewed - No data to display Procedures Medical Decision Making / ED Course ED Course patient's symptoms consistent with exacerbation of her chronic pain. I truly feel the patient is here because she wants a refill of her pain medication. At this time I explained to the patient that we cannot provide long-term pain medication offered her nonnarcotic pain treatment. But she declined. Patient tried leaving before discharge but was eventually given her discharge paperwork. And I do not feel that imaging at this time is needed as she has no signs of acute trauma or reproducible pain. Encounter Diagnosis ICD-10-CM 1. Acute exacerbation of chronic low back pain M54.5 G89.29 Plan The Patient was DISCHARGED: Counseled patient and family regarding suspected diagnosis AND need for follow-up. Discharged home with verbal and written instructions. They were instructed to return as needed for persistent or worsening symptoms or any new concerns. Condition at time of disposition: stable SIGNATURE: DO Alexis Blanco V 10/18/17 9780 ED NOTE Observed: 10/18/2017 Status: COMPLETED Source: [place] 6:08 PM [facility] REPOSITORY HNO ID: [id number] Author: Mami CamposRnLety King RN Service: Emergency Medicine Author Type: Registered Nurse Type: ED Notes Filed: 10/18/2017 6:17 PM Note Text: Pt states she slipped and fell down 4 steps at noon today, injuring her buttocks. No head injury. Also c/o eczema flare up on her leg. Pt states she ran out of her percocet yesterday. Pt asking registration staff who the doctor is prior to being roomed, and asking nurse who the doctor is prior to being seen. ED NOTE Observed: 09/29/2017 Status: COMPLETED Source: [place] 11:26 AM [facility] REPOSITORY HNO ID: [id number] Author: Deacon CamposRn) JODIE Garcia Service: Emergency Medicine Author Type: Registered Nurse Type: ED Notes Filed: 09/29/2017 11:27 AM Note Text: Pt asked if she could get something stronger for pain. Pt educated on intramuscular pain medication again for length of time to take effect. Dr. Leigh aware and no new orders obtained. Pt given bedside commode to give urine sample. ED NOTE Observed: 09/29/2017 Status: COMPLETED Source: [place] 10:45 AM [facility] REPOSITORY HNO ID: [id number] Author: Deacon Peterson) JODIE Garcia Service: Emergency Medicine Author Type: Registered Nurse Type: ED Notes Filed: 09/29/2017 11:16 AM Note Text: While medicating the patient with Bentyl for abdominal pain the patient states, What kind of medication is that. pt educated on medication. Pt then states, its not a narcotic?. Pt informed it is not a narcotic but helps many people with abdominal pain. Pt verbalized understanding at that time. RAPID INFLUENZA A/B Collected: 09/29/2017 Status: F Source: [facility] 10:18 AM HEALTH SYSTEM REPOSITORY TYPE CODE TESTS RESULT OUT OF REFERENCE UNITS RANGE LAB GRFLU(LOIN Negative C) Rapid Influenza A/B See below Result Comment: Negative for influenza A and B. Performed By: #### GRFLW #### [place] [address] COMPREHENSIVE PANEL Collected: 09/29/2017 Status: F Source: [facility] 10:18 AM HEALTH SYSTEM REPOSITORY TYPE CODE TESTS RESULT OUT OF REFERENCE UNITS RANGE LAB GNA(LOINC) 136-145 mEq/L Sodium Blood 137 LAB GK(LOINC) 3.5-5.1 mEq/L Potassium Blood 3.5 LAB GCL(LOINC) 98-107 mEq/L Chloride Blood 101 LAB GCO2(LOINC 22-30 mEq/L ) CO2 Blood 28 LAB GGLU(LOINC 70-99 mg/dL ) Glucose High Blood 123 LAB GBUN(LOINC 7-17 mg/dL ) BUN Blood 9 LAB GCREA(LOIN 0.51-0.95 mg/dL C) Creatinine Blood 0.63 LAB GCA(LOINC) 8.5-10.1 mg/dL Calcium Blood 9.3 LAB GANGP(LOIN 8-16 C) Anion Gap 12 LAB GALB(LOINC 3.4-5.0 g/dL ) Albumin Blood 3.4 LAB GTP(LOINC) 6.4-8.2 g/dL Total Protein 6.7 LAB GRAST(LOIN 15-46 U/L C) AST-SGOT Blood 41 LAB GALT(LOINC 12-78 U/L ) ALT-SGPT High Blood 81 LAB GALKP(LOIN 46-116 U/L C) Alk Phosphatase 84 LAB GBILT(LOIN 0.2-1.0 mg/dL C) Total Bilirubin 1.0 Performed By: #### GP14 #### [place] [address] HEMOGRAM/DIFF Collected: 09/29/2017 Status: F Source: [facility] 10:18 [facility] REPOSITORY TYPE CODE TESTS RESULT OUT OF REFERENCE UNITS RANGE LAB GWBC(LOINC 4.4-9.7 thou/cmm ) WBC 5.9 LAB GRBC(LOINC 3.79-4.93 mil/cmm ) RBC 4.50 LAB GHGB(LOINC 11.7-14.7 g/dL ) Hgb 13.5 LAB GHCT(LOINC 34.7-43.3 % ) Hct 41.9 LAB GMCV(LOINC 82.1-97.4 fl ) MCV 93.1 LAB GMCH(LOINC 27.4-32.8 pg ) MCH 30.0 LAB GMCHC(LOIN 31.9-35.6 % C) MCHC 32.2 LAB GRDW(LOINC 11.8-14.5 % ) RDW High 16.6 LAB GPLT(LOINC 150-370 thou/cmm ) Platelet 322 LAB GMPV(LOINC 8.8-12.1 fl ) MPV 9.3 LAB GSEGT(LOIN % C) Seg Neutrophil 72.8 LAB GLYMP(LOIN % C) Lymphocyte 15.1 LAB GMNO(LOINC % ) Monocyte 10.7 LAB GEOS(LOINC % ) Eosinophil 0.7 LAB GBASO(LOIN % C) Basophil 0.7 LAB GSEG2(LOIN 1.35-7.21 thou/cmm C) Abs. Neut 4.29 LAB GLYMN(LOIN 0.68-2.93 thou/cmm C) Abs. Lymph 0.89 LAB GMONN(LOIN 0.19-0.80 thou/cmm C) Abs. Jackson 0.63 LAB GEOSN(LOIN 0.00-0.36 thou/cmm C) Abs. Eosin 0.04 LAB GBASN(LOIN 0.00-0.08 thou/cmm C) Abs. Baso 0.04 Result Comment: Differential scan done Performed By: #### GCBCD #### [place] [address] LIPASE BLOOD Collected: 09/29/2017 Status: F Source: [facility] 10:18 AM HEALTH SYSTEM REPOSITORY TYPE CODE TESTS RESULT OUT OF REFERENCE UNITS RANGE LAB GLIP(LOINC) 73-393 U/L Lipase Blood 193 Performed By: #### GLIP #### [place] [address] ED PROV NOTE Observed: 09/29/2017 Status: COMPLETED Source: [place] 10:03 AM [facility] REPOSITORY HNO ID: [id number] Author: Rosita Leigh DO Service: Emergency Medicine Author Type: Physician Type: ED Provider Notes Filed: 09/29/2017 11:40 AM Note Text: ED Provider Note Patient Name: Regina Pereira SERVICE DATE: 09/29/17 History Patient presents with: Abdominal Pain Nausea AND Vomiting HPI 67-year-old female who presents with abdominal pain, vomiting, and diarrhea. Patient states she's had 3 days of lower abdominal pain vomiting and diarrhea. She describes subjective chills at home but no fever. She describes decrease in her urine since she's been vomiting. She states she tolerate small amounts of liquids. She denies any chest pain or shortness of breath. She is mostly complaining of abdominal cramping. PAST MEDICAL HISTORY Diagnosis Date - Anxiety - Compression fracture of lumbar vertebra (HCC) - DDD (degenerative disc disease), lumbar - Depression - Hypertension - Scoliosis PAST SURGICAL HISTORY Procedure Laterality Date - SECTION HX - HYSTERECTOMY No family history on file. Social History Social History Main Topics - Smoking status: Never Smoker - Smokeless tobacco: Never Used - Alcohol use No - Drug use: No - Sexual activity: Not Asked ALLERGIES Allergen Reactions - Morphine Itching Review of Systems Constitutional: Negative. HENT: Negative. Eyes: Negative. Respiratory: Negative. Cardiovascular: Negative. Gastrointestinal: Positive for abdominal pain, diarrhea, nausea and vomiting. Endocrine: Negative. Genitourinary: Negative. Musculoskeletal: Negative. Skin: Negative. Allergic/Immunologic: Negative. Neurological: Negative. Hematological: Negative. Psychiatric/Behavioral: Negative. All other systems reviewed and are negative. Physical Exam BP 152/87 Pulse 88 Temp 96.4 Resp 18 Wt 255 lb (115.7kg) SpO2 96% Physical Exam Constitutional: She is oriented to person, place, and time. She appears well-developed and well-nourished. HENT: Head: Normocephalic and atraumatic. Right Ear: External ear normal. Left Ear: External ear normal. Nose: Nose normal. Mouth/Throat: Oropharynx is clear and moist. Eyes: Conjunctivae and EOM are normal. Pupils are equal, round, and reactive to light. Neck: Normal range of motion. Neck supple. Cardiovascular: Normal rate, regular rhythm, normal heart sounds and intact distal pulses. Pulmonary/Chest: Effort normal and breath sounds normal. Abdominal: Soft. Bowel sounds are normal. There is tenderness. Diffuse lower quadrant tenderness. No guarding no rebound. Musculoskeletal: Normal range of motion. Neurological: She is alert and oriented to person, place, and time. She has normal reflexes. Skin: Skin is warm and dry. Psychiatric: She has a normal mood and affect. Her behavior is normal. Judgment and thought content normal. Nursing note and vitals reviewed. Diagnostic Testing ED Labs Ordered and Reviewed CBC + AUTO DIFF (AK,AV,EU,FV,HL,BHUMI,MM,SP) - Abnormal; Notable for the following: Result Value Ref Range RDW 16.6 (*) 11.8 - 14.5 % All other components within normal limits COMPREHENSIVE METABOLIC PANEL (AK,AV,EU,FV,HL,BHUMI,MM,SP) - Abnormal; Notable for the following: Glucose 123 (*) 70 - 99 mg/dL ALT 81 (*) 12 - 78 U/L All other components within normal limits LIPASE BLOOD (AK,AV,EU,FV,HL,BHUMI,MM,SP) MDRD GFR INFLUENZA A AND B DIRECT ANTIGEN (AV,EU,FV,HL,BHUMI,MM,SP) Procedures Medical Decision Making / ED Course ED Course emergency Department course, laboratory studies were obtained and reviewed. Patient was given IV fluids, Bentyl, and Zofran. Patient had no episodes of vomiting here in the emergency department or no episodes of diarrhea. Ethyl comfortable discharging her home. I will write her for 2 days of Phenergan to have at home. She is to follow-up with primary care physician. Patient is agreeable with this plan. Encounter Diagnosis ICD-10-CM 1. Vomiting and diarrhea R11.10 R19.7 Plan The Patient was discharged Condition at time of disposition: Stable SIGNATURE: DO Rosita Simons DO 09/29/17 1140 MDRD EGFR Collected: 09/29/2017 Status: F Source: [facility] 10:03 AM HEALTH SYSTEM REPOSITORY TYPE CODE TESTS RESULT OUT OF RANGE REFERENCE UNITS LAB GGFRF(LOINC >60mL/min/1.73m ) 2 eGFR >60 Result Comment: If the patient is , multiply the result by 1.210. Performed By: #### GGFR #### [place] [address] ED NOTE Observed: 09/29/2017 Status: COMPLETED Source: [place] 9:53 AM [facility] REPOSITORY HNO ID: [id number] Author: Mami (Jdoie) JODIE King Service: Emergency Medicine Author Type: Registered Nurse Type: ED Notes Filed: 09/29/2017 9:54 AM Note Text: Pt c/o mid abd pain for 4 days. Also c/o nausea, vomiting and diarrhea. Denies urinary symptoms. CHEST 2 VIEWS Observed: 09/13/2017 Status: F Source: [facility] 4:08 PM HEALTH SYSTEM REPOSITORY Performed at [facility] APPROVED BY: Saravanan Aguila MD EXAMINATION: CHEST RADIOGRAPH (2 VIEW FRONTAL & LATERAL) Clinical History: Cough, shortness of breath, nausea and vomiting M: XC2_4 Comparison: None RESULT: Lines, tubes, and devices: None. Lungs and pleura: The lungs appear clear. No sizable pleural effusion or pneumonia. Cardiomediastinal silhouette: Borderline cardiac enlargement. Other: Compression fracture at the thoracolumbar junction with associated kyphosis. IMPRESSION: No acute radiographic abnormality. ED PROV NOTE Observed: 09/13/2017 Status: COMPLETED Source: [place] 4:00 PM [facility] REPOSITORY HNO ID: [id number] Author: Deacon Chu MD Service: Emergency Medicine Author Type: Physician Type: ED Provider Notes Filed: 09/13/2017 11:16 PM Note Text: ED Provider Note Patient Name: Regina Pereira SERVICE DATE: 09/13/17 History Patient presents with: Nausea AND Vomiting HPI Regina Pereira is a 67-year-old female presenting with flulike symptoms. Patient has had constant symptoms for one week. She states that nothing really makes them better or worse. They're moderate in severity. She mostly complains of nausea vomiting and coughing. No fevers chills chest pain or shortness of breath. Cough is nonproductive. Denies any myalgias sore throat or diarrhea. Denies any difficulty swallowing. She is still able to eat and drink and during the interview is drinking actively a large soft drink from [employer]. PAST MEDICAL HISTORY Diagnosis Date - Anxiety - Compression fracture of lumbar vertebra (HCC) - DDD (degenerative disc disease), lumbar - Depression - Hypertension - Scoliosis PAST SURGICAL HISTORY Procedure Laterality Date - SECTION HX - HYSTERECTOMY No family history on file. Social History Social History Main Topics - Smoking status: Never Smoker - Smokeless tobacco: Never Used - Alcohol use No - Drug use: No - Sexual activity: Not Asked ALLERGIES Allergen Reactions - Morphine Itching Review of Systems Constitutional: Negative for chills, diaphoresis and fever. HENT: Negative for congestion and sore throat. Eyes: Negative for photophobia and visual disturbance. Respiratory: Positive for cough. Negative for chest tightness, shortness of breath and wheezing. Cardiovascular: Negative for chest pain, palpitations and leg swelling. Gastrointestinal: Positive for nausea and vomiting. Negative for abdominal pain and diarrhea. Genitourinary: Negative for dysuria and hematuria. Musculoskeletal: Negative for back pain and neck pain. Skin: Negative for color change and rash. Neurological: Negative for dizziness, syncope, weakness, light-headedness, numbness and headaches. All other systems reviewed and are negative. Physical Exam BP 98/62 Pulse 89 Temp (Src) 97.7 (Temporal Artery) Resp 16 Ht 5' 9 (1.75m) Wt 255 lb (115.7kg) SpO2 97% BMI 37.64 kg/(m2). Physical Exam Constitutional: She is oriented to person, place, and time. She appears well-developed and well-nourished. Non-toxic appearance. No distress. HENT: Head: Normocephalic and atraumatic. Mouth/Throat: Uvula is midline, oropharynx is clear and moist and mucous membranes are normal. Eyes: Conjunctivae and EOM are normal. Pupils are equal, round, and reactive to light. Neck: Trachea normal, normal range of motion and full passive range of motion without pain. Neck supple. Cardiovascular: Normal rate, regular rhythm, normal heart sounds and intact distal pulses. Pulmonary/Chest: Effort normal and breath sounds normal. No accessory muscle usage. No tachypnea. No respiratory distress. She has no decreased breath sounds. She has no wheezes. She has no rhonchi. She has no rales. She exhibits no tenderness. Abdominal: Soft. Normal appearance and bowel sounds are normal. She exhibits no distension. There is no tenderness. There is no rebound, no guarding and no CVA tenderness. Musculoskeletal: Normal range of motion. She exhibits no edema, tenderness or deformity. Neurological: She is alert and oriented to person, place, and time. Skin: Skin is warm and dry. No rash noted. Nursing note and vitals reviewed. Diagnostic Testing ED Labs Ordered and Reviewed - No data to display Procedures Medical Decision Making / ED Course ED Course patient presents with a flulike illness. During the interview she was actively drinking a large soft drink from [employer] and is tolerating it without difficulty. We did do a 2 view chest x-ray which was unremarkable for any acute abnormalities. The patient states that she would like medication for her back pain. She has chronic back pain. She is well-known to this emergency Department. She states that she takes ibuprofen for her back pain at home as she currently is not in pain management anymore. She last took ibuprofen yesterday. I offered her a dose of ibuprofen and she refused. I offered her a dose of Toradol she also refused this as well. I explained to the patient that we would not be treating her chronic back pain with narcotics and she declined any Tylenol or any other medications as well. I discussed with her that she has a flulike illness. She'll continue supportive care at home. There are no indications for antibiotics as she is not having pneumonia. She will follow-up with her doctor or return for worsening symptoms which were discussed. Discharged Encounter Diagnosis ICD-10-CM 1. Influenza-like illness R69 2. Chronic low back pain without sciatica, unspecified back pain laterality M54.5 G89.29 Plan The Patient was DISCHARGED: Counseled patient and family regarding radiology results AND suspected diagnosis AND need for follow- up. Discharged home with verbal and written instructions. They were instructed to return as needed for persistent or worsening symptoms or any new concerns. Condition at time of disposition: stable SIGNATURE: AUSTIN Morris PA (Pa) 09/13/17 5634 ATTENDING NOTE: I performed a history and physical examination of the patient and supervised and discussed the management with the resident/PA. I discussed the care/management plan with the PA/resident. I reviewed the resident/PA's note and agree with the documented findings and plan of care. Electronically verified by MD Deacon Link MD 09/13/17 4970 ED NOTE Observed: 09/13/2017 Status: COMPLETED Source: [place] 3:46 PM [facility] REPOSITORY O ID: [id number] Author: Lele CamposRn) JODIE Torres Service: Emergency Medicine Author Type: Registered Nurse Type: ED Notes Filed: 09/13/2017 3:46 PM Note Text: Pt taken to room 10, asked to get into the bed, pt states I would rather stay in the wheelchair, it hurts my back. Pt refused to get into bed at this time. ED NOTE Observed: 09/13/2017 Status: COMPLETED Source: [place] 3:11 PM [facility] REPOSITORY HNO ID: [id number] Author: Lele CamposRn) JODIE Torres Service: Emergency Medicine Author Type: Registered Nurse Type: ED Notes Filed: 09/13/2017 3:12 PM Note Text: Pt presents to the emergency department, daughter and grandson in [place], states I have the flu. Pt reports nausea and vomiting as symptoms. Pt states onset of symptoms x1 week ago. XR SPINE LUMBAR 2 Observed: 08/17/2017 Status: F Source: [employer] 2:02 PM [facility] REPOSITORY ORIGINAL XR SPINE LUMBAR 2 VIEWS CLINICAL STATEMENT: pain COMPARISON: X-ray lumbar spine 04/13/2017 FINDINGS: There are 5 lumbar-type vertebral bodies. There levoconvex curvature centered around L2-L3, unchanged. Mild height loss of L1 is unchanged. There are multilevel degenerative changes with disc height loss, disc osteophyte complex formation, and facet arthropathy. No evidence of acute fracture or traumatic malalignment. IMPRESSION: No acute compression deformity or significant listhesis. I have personally reviewed the images of this examination and agree with the resident's findings and interpretation. Interpreted By: Alexis Grier MD Preliminary Report By: Giovani Jacob MD Electronically Signed By: Alexis Grier MD Dictated Date: 08/17/2017 2:09:58 PM Prelim Date: 08/17/2017 2:13:03 PM Sign Date: 08/17/2017 2:40:29 PM XR FOOT MINIMUM 3 Observed: 08/17/2017 Status: F Source: [employer] VIEWS LEFT 2:02 PM [facility] REPOSITORY ORIGINAL XR FOOT MINIMUM 3 VIEWS LEFT CLINICAL STATEMENT: pain COMPARISON: None FINDINGS: No acute fracture or dislocation is identified. The joint spaces are maintained. There is no radiopaque foreign body. IMPRESSION: No acute fracture or dislocation. I have personally reviewed the images of this examination and agree with the resident's findings and interpretation. Interpreted By: Alexis Grier MD Preliminary Report By: Giovani Jacob MD Electronically Signed By: Alexis Grier MD Dictated Date: 08/17/2017 2:07:12 PM Prelim Date: 08/17/2017 2:09:32 PM Sign Date: 08/17/2017 2:39:26 PM ED PROV NOTE Observed: 08/11/2017 Status: COMPLETED Source: [place] 2:15 PM [facility] REPOSITORY O ID: [id number] Author: Kena Arshad MD Service: Emergency Medicine Author Type: Physician Type: ED Provider Notes Filed: 08/11/2017 2:18 PM Note Text: ED Provider Note Patient Name: Regina Pereira SERVICE DATE: 08/11/17 History Patient presents with: Rash HPI Comments: Patient presents with multiple complaints. Patient has had itchy dry skin on her lower extremities right greater than left. She states that she often gets prednisone for this because she has severe eczema. She has been on prednisone at the August 01 for the last 7 days so it seems that she just finished her period she actually denied being on prednisone to me she hasn't had any new exposures. No fevers or chills. PAST MEDICAL HISTORY Diagnosis Date - Anxiety - Compression fracture of lumbar vertebra (HCC) - DDD (degenerative disc disease), lumbar - Depression - Hypertension - Scoliosis PAST SURGICAL HISTORY Procedure Laterality Date - SECTION HX - HYSTERECTOMY No family history on file. Social History Social History Main Topics - Smoking status: Never Smoker - Smokeless tobacco: Never Used - Alcohol use No - Drug use: No - Sexual activity: Not Asked ALLERGIES Allergen Reactions - Morphine Itching Review of Systems Constitutional: Negative for activity change, appetite change, chills, diaphoresis, fatigue, fever and unexpected weight change. HENT: Negative for congestion, dental problem, ear pain, facial swelling, nosebleeds, rhinorrhea, sneezing, sore throat, trouble swallowing and voice change. Eyes: Negative for pain, discharge, redness, itching and visual disturbance. Respiratory: Negative for cough, choking, chest tightness, shortness of breath and wheezing. Cardiovascular: Negative for chest pain, palpitations and leg swelling. Gastrointestinal: Negative for blood in stool, constipation, diarrhea, nausea and vomiting. Genitourinary: Negative for difficulty urinating, dysuria, flank pain, frequency, hematuria and urgency. Musculoskeletal: Positive for gait problem. Negative for back pain, joint swelling and neck pain. Skin: Positive for rash. Neurological: Negative for dizziness, speech difficulty, weakness, light-headedness, numbness and headaches. Hematological: Does not bruise/bleed easily. Psychiatric/Behavioral: Negative for behavioral problems, confusion and suicidal ideas. Physical Exam BP 123/78 Pulse 100 Temp (Src) 98.1 (Temporal Artery) Resp 14 Ht 5' 9 (1.75m) Wt 255 lb (115.7kg) SpO2 97% BMI 37.64 kg/(m2). Physical Exam Constitutional: She is oriented to person, place, and time. She appears well-developed and well-nourished. No distress. HENT: Head: Normocephalic and atraumatic. Eyes: Conjunctivae and EOM are normal. Pupils are equal, round, and reactive to light. Right eye exhibits no discharge. Left eye exhibits no discharge. No scleral icterus. Neck: Normal range of motion. Neck supple. No JVD present. No tracheal deviation present. Cardiovascular: Normal rate, regular rhythm and normal heart sounds. No murmur heard. Pulmonary/Chest: Effort normal and breath sounds normal. No stridor. No respiratory distress. She has no wheezes. She has no rales. She exhibits no tenderness. Musculoskeletal: Normal range of motion. She exhibits no edema, tenderness or deformity. Has dry pealing flaky skin on her lower extremities right greater than left. This does not appear his infection there is no erythema or sign of significant inflammatory response Neurological: She is alert and oriented to person, place, and time. No cranial nerve deficit. She exhibits normal muscle tone. Coordination normal. Skin: Skin is warm and dry. No rash noted. She is not diaphoretic. No erythema. No pallor. Psychiatric: She has a normal mood and affect. Her behavior is normal. Judgment and thought content normal. Nursing note and vitals reviewed. Diagnostic Testing ED Labs Ordered and Reviewed - No data to display Procedures Medical Decision Making / ED Course ED Course I advised patient that I did not think another course of prednisone will be appropriate. She then told me that she would like to get some pain medicine because of her back. She has a history of chronic back pain. Apparently there is some issue where she was dismissed from pain management. I do not feel that a prescription for narcotics is warranted. I told the patient we would give her 1 pain pill here. She then asked what kind of pill and what the strength was when I told her she asked if she could have 2. Told her no. She is getting 1 Percocet and advised to obtain/Cera vee moisturizer for her legs. Encounter Diagnosis ICD-10-CM 1. Dry skin dermatitis L85.3 2. Chronic low back pain without sciatica, unspecified back pain laterality M54.5 G89.29 Plan The Patient was DISCHARGED: Counseled patient and family regarding suspected diagnosis AND need for follow-up. Discharged home with verbal and written instructions. They were instructed to return as needed for persistent or worsening symptoms or any new concerns. Condition at time of disposition: stable SIGNATURE: MD Kena Kevin MD 08/11/17 1418 ED NOTE Observed: 08/11/2017 Status: COMPLETED Source: [place] 1:39 PM [facility] REPOSITORY HNO ID: [id number] Author: Sylvia CamposRn) JODIE Regalado Service: Emergency Medicine Author Type: Registered Nurse Type: ED Notes Filed: 08/11/2017 1:39 PM Note Text: Patient complaining of rash to right lower extremity for 1 week. Patient states she usually gets prednisone for it. ED NOTE Observed: 08/04/2017 Status: COMPLETED Source: [place] 12:37 PM [facility] REPOSITORY HNO ID: [id number] Author: Lele CamposRn) JODIE Torres Service: Emergency Medicine Author Type: Registered Nurse Type: ED Notes Filed: 08/04/2017 12:39 PM Note Text: This RN to [facility], attempted to triage pt, who is the dr on. Pt instructed that physician on today is Dr. Chu, I am not going to stay he is rude, I am not seeing him. This RN offered to triage pt, pt refused I am going to leave. Pt got of out wheelchair and left with at this time. ED NOTE Observed: 08/04/2017 Status: COMPLETED Source: [place] 12:12 PM [facility] REPOSITORY HNO ID: [id number] Author: Lele Peterson) JODIE Torres Service: Emergency Medicine Author Type: Registered Nurse Type: ED Notes Filed: 08/04/2017 12:13 PM Note Text: Department busy at this time, pt not in any distress, able to speak in complete sentences. Pt to be triaged shortly. Pt and family member, , aware of delay. ED PROV NOTE Observed: 08/01/2017 Status: COMPLETED Source: [place] 9:56 AM [facility] REPOSITORY HNO ID: [id number] Author: Rosita Leigh DO Service: Emergency Medicine Author Type: Physician Type: ED Provider Notes Filed: 08/01/2017 9:59 AM Note Text: ED Provider Note Patient Name: Regina Pereira SERVICE DATE: 08/01/17 History Patient presents with: Pruritus HPI 66-year-old female who presents with itchy legs. Patient states she has bad eczema on ran out of her prednisone that she normally takes for it. She describes itching them right leg more so than the left. She denies any fevers chills. Denies any drainage. PAST MEDICAL HISTORY Diagnosis Date - Anxiety - Compression fracture of lumbar vertebra (HCC) - DDD (degenerative disc disease), lumbar - Depression - Hypertension - Scoliosis PAST SURGICAL HISTORY Procedure Laterality Date - SECTION HX - HYSTERECTOMY No family history on file. Social History Social History Main Topics - Smoking status: Never Smoker - Smokeless tobacco: Never Used - Alcohol use No - Drug use: No - Sexual activity: Not Asked ALLERGIES Allergen Reactions - Morphine Itching Review of Systems Constitutional: Negative. HENT: Negative. Eyes: Negative. Respiratory: Negative. Cardiovascular: Negative. Gastrointestinal: Negative. Endocrine: Negative. Genitourinary: Negative. Musculoskeletal: Negative. Skin: Negative. Itchy skin on the legs Allergic/Immunologic: Negative. Neurological: Negative. Hematological: Negative. Psychiatric/Behavioral: Negative. All other systems reviewed and are negative. Physical Exam BP 124/94 Pulse 111 Temp (Src) 96.6 (Tympanic) Resp 16 Ht 5' 9 (1.75m) Wt 255 lb (115.7kg) SpO2 97% BMI 37.64 kg/(m2). Physical Exam Constitutional: She is oriented to person, place, and time. She appears well-developed and well-nourished. HENT: Head: Normocephalic and atraumatic. Right Ear: External ear normal. Left Ear: External ear normal. Nose: Nose normal. Mouth/Throat: Oropharynx is clear and moist. Eyes: Conjunctivae and EOM are normal. Pupils are equal, round, and reactive to light. Neck: Normal range of motion. Neck supple. Cardiovascular: Normal rate, regular rhythm, normal heart sounds and intact distal pulses. Pulmonary/Chest: Effort normal and breath sounds normal. Abdominal: Soft. Bowel sounds are normal. Musculoskeletal: Normal range of motion. Neurological: She is alert and oriented to person, place, and time. She has normal reflexes. Skin: Skin is warm and dry. Rash noted. Scaly rash noted to the lower extremities. Psychiatric: She has a normal mood and affect. Her behavior is normal. Judgment and thought content normal. Nursing note and vitals reviewed. Diagnostic Testing ED Labs Ordered and Reviewed - No data to display Procedures Medical Decision Making / ED Course ED Course Emergency department course, patient will be prescribed prednisone 20 mg for 7 days. She is to follow up with [facility]. Patient is agreeable with this plan. Encounter Diagnosis ICD-10-CM 1. Eczema, unspecified type L30.9 Plan The Patient was discharged Condition at time of disposition: Stable SIGNATURE: DO Rosita Simons DO 08/01/17 0959 ED NOTE Observed: 08/01/2017 Status: COMPLETED Source: [place] 9:48 AM [facility] REPOSITORY HNO ID: [id number] Author: Carrol (Rn) JODIE Crane Service: Emergency Medicine Author Type: Registered Nurse Type: ED Notes Filed: 08/01/2017 9:49 AM Note Text: HX. PSORIASIS . BLE VERY DRY, ITCHING, RIGHT LEG BLOODY FROM SCRATCHING X 1 WEEK ED NOTE Observed: 07/31/2017 Status: COMPLETED Source: [place] 10:35 AM [facility] REPOSITORY HNO ID: [id number] Author: Renato (Rn) JODIE Gentile Service: Emergency Medicine Author Type: Registered Nurse Type: ED Notes Filed: 07/31/2017 10:35 AM Note Text: Pt refused IM TORADOL and refused to wait on her discharge paperwork. She then left the department ED PROV NOTE Observed: 07/31/2017 Status: COMPLETED Source: [place] 10:17 AM [facility] REPOSITORY HNO ID: [id number] Author: Irma Bernstein MD Service: Emergency Medicine Author Type: Physician Type: ED Provider Notes Filed: 07/31/2017 5:04 PM Note Text: ED Provider Note Patient Name: Regina Pereira SERVICE DATE: 07/31/17 History Patient presents with: Fall HPI Comments: History of present illness: Patient is a 66-year-old female with known history of chronic low back pain, scoliosis presenting for worsening low back pain. The patient had a fall 2 weeks ago, was seen at [facility] emergency department. X-rays were obtained which showed chronic changes. Patient was given prescription for Percocet. The patient was in pain management, and as such she was considered in violation of her pain management contract, and was discharged from her pain management physician's service. Patient states that the pain radiates down the back of her legs bilaterally. Patient denies numbness or weakness in her legs, loss of control of bowel or bladder. Patient denies abdominal pain, changes with bowel or bladder habits, fevers or chills. Patient is able in the leg, but with difficulty. History provided by: Patient PAST MEDICAL HISTORY Diagnosis Date - Anxiety - Compression fracture of lumbar vertebra (HCC) - DDD (degenerative disc disease), lumbar - Depression - Hypertension - Scoliosis PAST SURGICAL HISTORY Procedure Laterality Date - SECTION HX - HYSTERECTOMY No family history on file. Social History Social History Main Topics - Smoking status: Never Smoker - Smokeless tobacco: Never Used - Alcohol use No - Drug use: No - Sexual activity: Not on file ALLERGIES Allergen Reactions - Morphine Itching Review of Systems Constitutional: Negative for chills, fatigue and fever. HENT: Negative for congestion, rhinorrhea and sore throat. Eyes: Negative for pain and discharge. Respiratory: Negative for cough and shortness of breath. Cardiovascular: Negative for chest pain and palpitations. Gastrointestinal: Negative for abdominal pain, nausea and vomiting. Endocrine: Negative for polyuria. Genitourinary: Negative for dysuria, frequency, hematuria and urgency. Musculoskeletal: Positive for back pain. Negative for neck pain. Skin: Negative for rash and wound. Allergic/Immunologic: Negative for environmental allergies. Neurological: Negative for dizziness, numbness and headaches. Hematological: Does not bruise/bleed easily. Psychiatric/Behavioral: Negative for suicidal ideas. All other systems reviewed and are negative. Physical Exam BP 145/71 Pulse 113 Temp 97.9 Resp 16 Ht 5' 9 (1.75m) Wt 255 lb (115.7kg) SpO2 99% BMI 37.64 kg/(m2). Physical Exam Constitutional: She is oriented to person, place, and time. She appears well-developed and well-nourished. No distress. HENT: Head: Normocephalic and atraumatic. Right Ear: External ear normal. Left Ear: External ear normal. Eyes: Conjunctivae and EOM are normal. Right eye exhibits no discharge. Left eye exhibits no discharge. No scleral icterus. Neck: Normal range of motion. No JVD present. No tracheal deviation present. Cardiovascular: Normal rate, regular rhythm and normal heart sounds. Exam reveals no gallop and no friction rub. No murmur heard. Pulmonary/Chest: Effort normal. No stridor. No respiratory distress. She has no wheezes. She has no rales. She exhibits no tenderness. Abdominal: Soft. Bowel sounds are normal. There is no tenderness. There is no rebound and no guarding. Musculoskeletal: She exhibits tenderness. She exhibits no edema or deformity. POP of the lumbar spine, paraspinal muscles. +straight leg raise. No loss of sensation or strength Neurological: She is alert and oriented to person, place, and time. No cranial nerve deficit. Moves all extremities equally Skin: Skin is warm and dry. No rash noted. She is not diaphoretic. Psychiatric: She has a normal mood and affect. Judgment normal. Nursing note and vitals reviewed. Diagnostic Testing ED Labs Ordered and Reviewed - No data to display Procedures Medical Decision Making / ED Course Assessment and plan: Patient seen by myself and the attending. History and physical exam concerning for low back pain, as well as chart review concerning for drug-seeking behavior. I do not believe that further imaging is warranted, as the patient has already had workup for this fall, and has no signs on exam of cauda equina or other spinal cord compromise. Patient will be given Toradol for pain, prescription for ibuprofen and lidocaine patches. Patient told to follow up with a primary care doctor, as well as will be given a referral for pain management. Patient told to return for symptoms of spinal cord compromise. ED Course Encounter Diagnosis ICD-10-CM 1. Acute exacerbation of chronic low back pain M54.5 G89.29 Patient eloped from the emergency department, did not wait for her discharge paperwork upon finding out that she would not be receiving any narcotics in the emergency department. Plan The Patient was DISCHARGED: Counseled patient regarding suspected diagnosis AND need for follow-up. Discharged home with verbal and written instructions. They were instructed to return as needed for persistent or worsening symptoms or any new concerns. Condition at time of disposition: stable SIGNATURE: MD Bill Jose (ResLety Martini MD Resident 07/31/17 5427 Attending Note I evaluated the patient and personally participated in the ricketts components. I agree with the resident's findings and plan as documented and have discussed the case and management of the patient's care with the resident. Pt presenting for chronic back pain. Pt w/o red flags and exam well-appearing. No osseous TTP. Pt told about [place] and inability to given controlled substances and pt left before could be given any paperwork. Pt presenting w/ low back pain. Pt w/o red flags, including AC use, IVDA, bowel/bladder incontinence, new neuro deficits, fever, malignancy, trauma. No indication for imaging. Consistent w/ MSK back pain. Pt stable for d/c. [place]AR[place] website checked and validated. Prescriptions have been INAPPROPRIATELY filled by multiple providers.- 07/31/2017 by Irma Bernstein MD Signature: Irma Bernstein MD Date: 07/31/2017 Time: 5:04 PM Irma Bernstein MD 07/31/17 1704 ED NOTE Observed: 07/31/2017 Status: COMPLETED Source: [place] 9:56 AM [facility] REPOSITORY HNO ID: [id number] Author: Cinthia (Rn) JODIE Aguero Service: Emergency Medicine Author Type: Registered Nurse Type: ED Notes Filed: 07/31/2017 9:58 AM Note Text: Pt states that 2 weeks ago she was getting out of bed and fell onto her butt. States since then she has had increase in lower back pain. Pt denies bowel/bladder incontinence. States she has an increase in pain while walking. ALLERGIES ALLERGIES DATE TYPE / CODE NAME / CODE REACTION SEVERITY SOURCE 07/13/2018 Drug No Known Unknown [facility] All[facility]/416 Allergies/N82563 [facility] 561019(SNOM 0388(RXNORM) Repository ED CT) 06/01/2018 Drug morphine/[id number] Itching Unknown [facility] Allergy/416 545(RXNORM) Hospital 494296(SNOM Repository ED CT) 07/22/2017 DRUG MORPHINE ITCHING [facility] INGREDI/419 Other [place] 362299(SNOM Repository ED CT) Drug NO KNOWN [facility] Class/78110 ALLERGIES Other [place] 1003(SNOMED Repository CT) NG/72810730 NO KNOWN [facility] 6(SNOMED ALLERGIES Health [facility]) Repository NG/61959723 MORPHINE [facility] 6(SNOMED [facility] CT) Repository Drug morphine/1545(RX itch Unknown [facility] Allergy/416 NORM) [facility] 760332(SNOM Repository ED CT) ENCOUNTERS ENCOUNTERS ADMIT/DISCHARGE ACCOUNT NUMBER ADMITTING ENCOUNTER LOCATION SOURCE CLASS 07/19/2018 [id number] [facility] [id number]: Repository [id number] 07/19/2018 [id number] Emergency [facility] ERRoo: System 2K2WDZUau: Repository [id number] 07/13/2018/07/13/20 [id number] Emergency [address] ding:ED Repository 07/13/2018/07/13/20 [id number] Emergency ABuilding:ER [address] Repository 07/12/2018 [id number] [address] [place] [address] ERRoom: System [id number]: Repository [id number] 07/12/2018/07/12/20 [id number] Emergency [address] ding:ED Repository 07/09/2018/07/09/20 [id number] Emergency [address] ding:ED Repository 07/05/2018/07/05/20 [id number] Emergency [address] ding:ED Repository 07/02/2018/07/02/20 [id number] Emergency ABuilding:ER [address] Repository 06/30/2018 [id number] [address] [place] [address] ERRoo: System 5N6XPBWeh: Repository [id number] 06/29/2018/06/29/20 [id number] Emergency ABuilding:ER [address] Repository 06/28/2018 [id number] Emergency [address] [place] [address] ERRoo: System [id number]: Repository [id number] 06/26/2018 [id number] Emergency BuildinA [facility] ERRoo: System 2P8CQDElk: Repository [id number] 06/26/2018 [id number] Emergency [address] [place] [address] EGRoom: System 8L9ZHJTxm: Repository [id number] 06/17/2018 [id number] Inpatient [facility] Encounter 4NRoom: System [id number]: Repository [id number] 06/14/2018 [id number] Emergency [facility]in[facility] ERRoom: System 5S6URXXdu: Repository [id number] 06/14/2018/06/14/20 [id number] Emergency ABuilding:ER [address] Repository 06/12/2018/06/12/20 [id number] Emergency ABuilding:ER [address] Repository 06/11/2018 [id number] Emergency BuildinA [facility] ERRoom: System 1M2KNFEga: Repository [id number] 06/07/2018 [id number] Emergency [facility]inC [facility] EGRoom: System 8P4FDVIml: Repository [id number] 06/04/2018 [id number] Ambulatory [facility] ng:MARTHA Repository 06/03/2018 [id number] Ambulatory [facility] ding:LAB Repository 06/02/2018 [id number] Emergency BuildinA [facility] ERRoom: System 3D1ZWYTyp: Repository [id number] 06/02/2018/06/02/20 [id number] Emergency ABuilding:ER [address] Repository 06/01/2018/06/01/20 [id number] Emergency [address] ding:ED Repository 06/01/2018/06/01/[id number] Yney Emergency [address] lding:A1E [place] [facility] [place] DeptRoo: [facility] A1E P3HSEbf: Repository A1E A1ED04 05/31/2018/05/31/20 [id number] Emergency [address] Repository :KIARA 05/30/2018/05/30/20 [id number] Emergency [address] ding:ED Repository 05/30/2018/05/30/20 [id number] Emergency [address] Repository 05/30/2018/05/30/20 [id number] Emergency [address] MEDICAL Repository CENTERBuildi ng:AKEDGRoom : OTFBed: 07 05/30/2018 [id number] Emergency BuildinA [facility] ERRoom: System 7K4UQDZld: Repository [id number] 05/30/2018/05/30/20 [id number] Emergency ABuilding:ER [address] Repository 05/29/2018 [id number] Emergency BuildinA [facility] ERRoom: System [id number]: Repository [id number] 05/27/2018/05/27/20 [id number] Emergency ABuilding:[address] Repository 05/27/2018 [id number] Emergency BuildinA [facility] ERRoom: System 6Q8PNZKnc: Repository [id number] 05/26/2018 [id number] Emergency BuildinA [facility] ERRoom: System 1O0KTAOwf: Repository [id number] 05/21/2018 [id number] Emergency BuildinA [facility] ERRoom: System 5S5RAHIpe: Repository [id number] 05/20/2018 [id number] Emergency BuildinA [facility] ERRoom: System 7J2PDFWow: Repository [id number] 05/20/2018/05/20/20 [id number] Emergency ABuilding:[address] Repository 05/19/2018 [id number] Emergency BuildinA [facility] ERRoom: System 5F0QWWQnq: Repository [id number] 05/14/2018 [id number] Emergency BuildinA [facility] ERRoom: System 1K6WDUEip: Repository [id number] 05/14/2018 [id number] Ambulatory [facility] MEDICAL Repository CENTERBuildi ng:[id number] 05/13/2018 [id number] Emergency BuildinC [facility] EGRoom: System 4X1ZQRXxh: Repository [id number] 05/13/2018 [id number] Ambulatory [facility] Repository 05/13/2018 [id number] Ambulatory [facility] MEDICAL Repository CENTERBuildi ng:[id number] 05/13/2018/05/13/20 [id number] Emergency ABuilding:ER [address] Repository 05/12/2018/05/12/20 [id number] Emergency ABuilding:ER [address] Repository 05/10/2018/05/10/20 [id number] Emergency ABuilding:ER [address] Repository 05/10/2018 [id number] Emergency BuildinA [facility] ERRoom: System 7L3XSZUub: Repository [id number] 05/08/2018 [id number] Emergency BuildinC [facility] EGRoom: System 8Y5BXNFxg: Repository [id number] 05/07/2018/05/07/20 [id number] Ambulatory [address] Repository 05/07/2018/05/07/20 [id number] Ambulatory [address] MEDICAL Repository CENTERBuildi ng:[id number] 05/06/2018 [id number] Ambulatory [facility] MEDICAL Repository CENTERBuildi ng:[id number] 05/04/2018/05/04/20 [id number] Ambulatory [address] Repository 05/04/2018/05/04/20 [id number] Ambulatory [address] MEDICAL Repository CENTERBuildi ng:[id number] 05/04/2018 [id number] Ambulatory [facility] Repository 05/02/2018 [id number] Emergency BuildinA [facility] ERRoom: System 5Q5GZVVzm: Repository [id number] 05/02/2018/05/02/20 [id number] Emergency ABuilding:ER [address] Repository 05/02/2018 [id number] Emergency BuildinA [facility] ERRoom: System 1G5VRCHci: Repository [id number] 05/01/2018 [id number] Emergency BuildinA [facility] ERRoom: System 8R5MKTBwh: Repository [id number] 05/01/2018 [id number] Emergency BuildinA [facility] ERRoom: System 0N6PFBIbx: Repository [id number] 05/01/2018 [id number] Emergency [facility]inA [facility] ERRoom: System 6M6CWSBxj: Repository [id number] 04/29/2018 [id number] Emergency [facility]inA [facility] ERRoom: System 1E4ILMHmb: Repository [id number] 04/29/2018 [id number] Emergency [facility]inA [facility] ERRoom: System 6V1XNQQek: Repository [id number] 04/29/2018/04/29/20 [id number] Emergency ABuilding:ER [address] Repository 04/28/2018 [id number] Emergency BuildinA [facility] ERRoom: System 3J8EOQYgj: Repository [id number] 04/23/2018/04/23/20 [id number] Ambulatory [address] Repository 04/23/2018/04/23/20 [id number] Ambulatory [address] MEDICAL Repository CASHMEREBuildi ng:IAGGR 04/23/2018 [id number] Ambulatory [facility] MEDICAL Repository CENTERBuildi ng:[id number] 04/19/2018 [id number] Emergency [facility]inA [facility] ERRoom: System 6Z3FHTVxw: Repository [id number] 04/14/2018 [id number] Emergency [facility]inC [facility] EGRoom: System 8G8LYPCfv: Repository [id number] 04/12/2018 [id number] Emergency BuildinA [facility] ERRoom: System 1U2MLIMpa: Repository [id number] 04/09/2018 [id number] Emergency BuildinA [facility] ERRoom: System 6T8TETFbj: Repository [id number] 04/08/2018/04/08/20 [id number] Emergency ABuilding:ER [address] Repository 04/07/2018/04/07/20 [id number] Emergency ABuilding:ER [address] Repository 04/04/2018 [id number] [facility]ELIZA Repository 03/24/2018/04/03/20 [id number] Ambulatory [address] ng:G.CD Repository 03/21/2018 [id number] Emergency BuildinC [facility] EGRoom: System 3L0MLSHjm: Repository [id number] 03/21/2018/03/21/20 [id number] Emergency ABuilding:ER [address] Repository 03/08/2018 [id number] Emergency BuildinA [facility] ERRoom: System 6V0ESNIbx: Repository [id number] 03/03/2018/03/03/20 [id number] Emergency ABuilding:ER [address] Repository 03/02/2018/03/02/20 [id number] Emergency [address] Repository 03/02/2018/03/02/20 [id number] Emergency [address] MEDICAL Repository CASHMEREBuildi ng:AKEDGRoom : EDBed: 11 03/02/2018 [id number] Emergency BuildinA [facility] ERRoom: System 5D4KCQKzq: Repository [id number] 03/01/2018/03/01/20 [id number] Emergency ABuilding:ER [address] Repository 02/20/2018/02/21/20 [id number] Emergency ABuilding:ER [address] Repository 02/20/2018 [id number] [facility] [id number]: Repository [id number] 02/13/2018 [id number] Inpatient [facility] Repository ng:H.SD 02/11/2018 [id number] Ambulatory [facility] Repository ng:H.NCT 02/08/2018 [id number] Emergency BuildinC [facility] EGRoom: System 1L3CUXHlb: Repository [id number] 02/08/2018/02/09/20 [id number] Emergency ABuilding:ER [address] Repository 02/02/2018/02/03/20 [id number] Emergency [address] Repository 02/02/2018/02/03/20 [id number] Emergency [address] MEDICAL Repository CENTERBuildi ng:AKEDGRoom : EDBed: 10 01/28/2018 [id number] Emergency BuildinC [facility] EGRoom: System 0J9QBNQkq: Repository [id number] 01/26/2018 [id number] Ambulatory [facility] MEDICAL Repository CENTERBuildi ng:[id number] 01/12/2018 [id number] Emergency BuildinA [facility] ERRoom: System 9S7YJALvb: Repository [id number] 01/11/2018/01/12/20 [id number] Emergency ABuilding:ER [address] Repository 01/08/2018 [id number] Emergency BuildinA [facility] ERRoom: System 7M0JXHWlz: Repository [id number] 01/07/2018/01/08/20 [id number] Emergency ABuilding:ER [address] Repository 01/05/2018 [id number] Ambulatory [facility] MEDICAL Repository CENTERBuildi ng:HEOG 12/16/2017/12/17/19 [id number] Emergency ABuilding:ER [address] Repository 12/15/2017 [id number] Emergency BuildinC [facility] EGRoom: System 9U9VVBCcg: Repository [id number] 12/15/2017/12/16/19 [id number] Ambulatory [address] Repository 12/15/2017/12/16/19 [id number] Ambulatory [address] MEDICAL Repository CENTERBuildi ng:[id number] 12/14/2017 [id number] Emergency BuildinA [facility] ERRoom: System 6I3OVUKup: Repository [id number] 12/14/2017/12/15/19 [id number] Emergency ABuilding:ER [address] Repository 12/08/2017/12/09/19 [id number] Emergency ABuilding:ER [address] Repository 12/07/2017/12/08/19 [id number] Emergency [address] Repository 12/07/2017/12/08/19 [id number] Emergency [address] MEDICAL Repository CASHMEREBuildi ng:AKEDGRoom : EDBed: 10 12/06/2017 [id number] Emergency BuildinC [facility] EGRoom: System 7W5UADSts: Repository [id number] 12/01/2017 [id number] Ambulatory [facility] MEDICAL Repository CASHMEREBuildi ng:[id number] 11/30/2017 [id number] Emergency BuildinC [facility] EGRoom: System 0F1YDNCrq: Repository [id number] 11/30/2017/12/01/19 [id number] Emergency ABuilding:ER [address] Repository 11/19/2017/11/20/19 [id number] Emergency ABuilding:[address] Repository 11/19/2017 [id number] Emergency BuildinC [facility] EGRoom: System 3A8XXHFkx: Repository [id number] 11/18/2017 [id number] [facility] 3P9AACUoh: Repository [id number] 11/17/2017 [id number] Ambulatory [facility] Repository 11/17/2017/11/18/19 [id number] Ambulatory [address] MEDICAL Repository CASHMEREBuildi ng:AKLBG 11/17/2017/11/18/19 [id number] Ambulatory [address] Repository 11/17/2017/11/18/19 [id number] Ambulatory [address] MEDICAL Repository CENTERBuildi ng:[id number] 11/14/2017/11/15/19 [id number] Emergency ABuilding:[address] Repository 11/13/2017 [id number] Emergency BuildinC [facility] EGRoom: System 5L3JLKRnx: Repository [id number] 11/10/2017 [id number] Emergency BuildinC [facility] EGRoom: System 1B2QORHuu: Repository [id number] 11/09/2017/11/10/19 [id number] Emergency ABuilding:ER [address] Repository 11/08/2017 [id number] Emergency BuildinC [facility] EGRoo: System 5R3YJGOpa: Repository [id number] 11/02/2017 [id number] Emergency BuildinA [facility] ERRoom: System 9P0PFGOum: Repository [id number] 10/18/2017/10/19/19 [id number] Emergency [address] Repository 10/18/2017/10/19/19 [id number] Emergency [address] MEDICAL Repository CASHMEREBuildi ng:AKEDGRoom : EDBed: 10/18/2017 [id number] Emergency BuildinC [facility] EGRm: System 4P7HZCFkc: Repository [id number] 10/18/2017/10/19/19 [id number] Emergency ABuilding:ER [address] Repository 10/13/2017 [id number] Emergency BuildinC [facility]: System 4I5VNDXcq: Repository [id number] 10/13/2017 [id number] Ambulatory [facility] MEDICAL Repository CASHMEREBuildi ng:[id number] 10/03/2017 [id number] Emergency BuildinC [facility]: System 9E6RCUMhf: Repository [id number] 09/29/2017/09/29/19 [id number] Emergency [address] Repository 09/29/2017/09/29/19 [id number] Emergency [address] MEDICAL Repository CASHMEREBuildi ng:AKEDGRoom : EDBed: 09/21/2017/09/21/19 [id number] Emergency ABuilding:ER [address] Repository 09/19/2017/09/19/19 [id number] Emergency ABuilding:ER [address] Repository 09/13/2017/09/13/19 [id number] Emergency [address] Repository 09/13/2017/09/13/19 [id number] Emergency [address] MEDICAL Repository CASHMEREBuildi ng:AKEDGRoom : EDBed: 16 09/04/2017/09/04/19 [id number] Emergency ABuilding:ER [address] Repository 09/01/2017/09/01/19 [id number] Emergency ABuilding:ER [address] Repository 09/01/2017/09/01/19 [id number] Ambulatory Building:[address] Repository 08/23/2017/08/23/19 [id number] Emergency ABuilding:ER [address] Repository 08/20/2017/08/20/19 [id number] Emergency ABuilding:ER [address] Repository 08/20/2017/08/20/19 [id number] Anant TRAN [address] EMERGENCYBui [place] lding:EDRoom Hospital : Repository VSJAWT15Wqs: EDBED08 08/17/2017/08/17/19 [id number] Emergency ABuilding:[address] Repository 08/14/2017 [id number] [address] [place] [address] EDRoom: System 444Bed: Repository [id number] 08/11/2017/08/11/19 [id number] Emergency [address] Repository 08/11/2017/08/11/19 [id number] Emergency [address] MEDICAL Repository CASHMEREBuildi ng:AKEDGRoom : EDBed: 11 08/11/2017/08/11/19 [id number] Emergency ABuilding:ER [address] Repository 08/04/2017/08/04/19 [id number] Emergency [address] Repository 08/04/2017/08/04/19 [id number] Emergency [address] MEDICAL Repository CASHMEREBuildi ng:AKEDG 08/03/2017/08/03/20 [id number] Anant TRAN EMERGENCYBui [place] lding:EDRoom Hospital : Repository JKAHKA44Myq: MTBED18 08/02/2017/08/02/20 [id number] Anant ROSE SWER Magdalene 17 YULI Olivo EMERGENCYBui [place] lding:EDRoom Hospital : Repository RKAQXT24Ivu: MTBED16 08/01/2017/08/01/20 [id number] Emergency [address] Other [place] Repository 08/01/2017/08/01/20 [id number] Emergency SDRON [address] MEDICAL Repository CENTERBuildi ng:AKEDGRoom : EDBed: 10 07/31/2017/07/31/20 [id number] Emergency ABuilding:ER [address] Repository 07/31/2017 [id number] Emergency BuildinA [facility] ERRoom: System 0B0CWIZdh: Repository [id number] 07/31/2017/07/31/20 [id number] Emergency [address] [place] Repository 07/31/2017/07/31/20 [id number] Emergency [address] MEDICAL Repository CENTERBuildi ng:AKEDRoom: EDBed: 13 07/25/2017/07/25/20 [id number] RAH, Ambulatory SWER [place] 17 CAM A EMERGENCYBui [place] lding:EDRoom Hospital : Repository FVLKVD25Lxl: MTBED16 07/24/2017/07/24/20 [id number] Emergency Building:E3R Bell 17 oom: 0014 [facility] Repository 07/24/2017 [id number] Ambulatory [address] [place] [address] Repository PAYERS PAYERS ENCOUNTER GUARANTOR PAYER SUBSCRIBER SOURCE 07/19/2018 Regina J Primary Regina J [employer] MooreDOB: Insurance:MedicarePol TournEaseB: System icy Number: Effective [id number] Repository Perez Date: [place], [place] [address]Jwl: () 07/19/2018 Secondary Regina J [employer] [facility] Insurance:MedicarePol MooreDOB: System icy Number: Effective [id number] Repository Date: 07/19/2018 Regina J Primary Regina J [employer] [facility]: Insurance:MedicarePol MooreDOB: System icy Number: Effective [id number] Repository Perez Date: [place], [place] [address]Ycm: (HP) 07/19/2018 Secondary Regina J [facility] Insurance:MedicarePol MooreDOB: System icy Number: Effective [id number] Repository Date: 07/13/2018 REGINA J Primary REGINA J Dianne [id number] Insurance:MEDICARE FREDONIADOB: Community PEREZ PART A [facility] [id number] Number: Repository [address]Udo: [phone] [id number] [phone] () Date:2018-07-13 07/13/2018 Secondary NOT GIVENUNK [place] Insurance:SELF PAY [facility] Number: Effective Repository Date:2018-07-13 07/13/2018 REGINA J Primary REGINA J [facility]: Insurance:MEDICARE MOOREB: [facility] PART B INSCOPolicy [id number] Repository PEREZ Number: [address] [place], [place] [id number] [place], [place] [address]Efl: (330) Date:2018-07-13 [address]Bns: (HP) [id number] [phone] Name:[facility] ()Tel: (144) Administrators LLCPO [phone] () [address] [place] [address] 19820OZ: 07/12/2018 Regina J Primary Regina J [facility] MooreDOB: Insurance:MedicarePol [place]DOB: System icy Number: Effective [id number] Repository Perez Date: [place], [place] [address]Sth: (HP) 07/12/2018 Secondary Regina J [facility] Insurance:MedicarePol MooreDOB: System icy Number: Effective [id number] Repository Date: 07/12/2018 REGINA J Primary REGINA J Dianne [id number] Insurance:MEDICARE FREDONIADOB: Community PEREZ PART A [facility] [id number] [place], [place] Number: Repository [address]Hjt: [phone]) [id number] [phone] () Date:2018-07-12 07/12/2018 Secondary NOT GIVENUNK Dianne Insurance:SELF PAY [facility] Number: Effective Repository Date:2018-07-12 07/09/2018 REGINA J Primary REGINA Oconnoroster [id number] Insurance:MEDICARE FREDONIADOB: Community PEREZ PART A olic [id number], [place] Number: Repository [address]Cqo: [phone] [id number] [phone] () Date:2018-07-09 07/09/2018 Secondary NOT GIVENUNK [place] Insurance:SELF PAY [facility] Number: Effective Repository Date:2018-07-09 07/05/2018 REGINA J Primary REGINA Garcia Dianne [id number] Insurance:[facility]ARE [facility]: Community PEREZ PART A [facility] [id number], [place] Number: Repository [address]Eab: [phone]) [id number] [phone] () Date:2018-07-05 07/05/2018 Secondary NOT GIVENUNK [place] Insurance:SELF PAY [facility] Number: Effective Repository Date:2018-07-05 07/02/2018 REGINA J Primary REGINA [facility]: Insurance:[facility]ICARE [facility]ITALB: [facility] PART B INSCOPolicy [id number] Repository PEREZ Number: [address] [place], [place] [id number] [place], [place] [address]Nin: (330) Date:2018-07-02 383[address]Qjx: () [id number] [phone] Name:[facility] ()Tel: (281) Administrators LLCIZ [phone] () [address] [address]Kekrpriic [place] [address]KB: 06/30/2018 Regina J Primary Regina Garcia [facility]B: Insurance:MedicareSutter California Pacific Medical CenterB: System icy Number: Effective [id number] Repository Perez Date: [facility] [place] [address]Kkt: () 06/30/2018 Secondary Regina J [facility] Insurance:MedicarePol [place]DOB: System icy Number: Effective [id number] Repository Date: 06/29/2018 REGINA J Primary REGINA J [facility]: Insurance:[facility]ARE [facility]ITALB: [facility] PART B INSCOPolicy [id number] Repository PEREZ Number: [address] [place] [id number] [place] [address]Czo: (363) Date:2018-06-29 [address]Hme: () [id number] [phone] Name:RAUL ()Tel: ([phone]) Dpfaojjvrrcicu LLCSX [phone] () [address] [place] [address]IO: 06/28/2018 Regina J Primary Regina J [facility]B: Insurance:MedicareResearch Medical CenterDOB: System icy Number: Effective [id number] Repository Perez Date: [place] [address]Poo: () 06/28/2018 Secondary Regina J [facility] Insurance:MedicarePol MooreDOB: System icy Number: Effective [id number] Repository Date: 06/26/2018 Regina J Primary Regina J [facility] HospitalB: Insurance:MedicarePol [place]DOB: System icy Number: Effective [id number] Repository Perez Date: [place], [place] [address]Jeq: () 06/26/2018 Secondary Regina J [facility] Insurance:MedicarePol [place]DOB: System icy Number: Effective [id number] Repository Date: 06/26/2018 Regina J Primary Regina J [facility] [place] VistaDOB: Insurance:MedicarePol [place]DOB: System icy Number: Effective [id number] Repository Perez Date: [place], [place] [address]Ata: (HP) 06/26/2018 Secondary Regina J [facility] Insurance:MedicarePol MooreDOB: System icy Number: Effective [id number] Repository Date: 06/17/2018 Regina J Primary Regina J [facility] MooreDOB: Insurance:MedicarePol MooreDOB: System icy Number: Effective [id number] Repository Perez Date: [place], [place] [address]Kvn: (HP) 06/17/2018 Secondary Regina J [facility] Insurance:MedicarePol MooreDOB: System icy Number: Effective [id number] Repository Date: 06/14/2018 Regina J Primary Regina J [facility] MooreDOB: Insurance:MedicarePol MooreDOB: System icy Number: Effective [id number] Repository Perez Date: [place], [place] [address]Zwx: (HP) 06/14/2018 Secondary Regina J [facility] Insurance:MedicarePol MooreDOB: System icy Number: Effective [id number] Repository Date: 06/14/2018 REGINA J Primary REGINA J [place] [email or web address] [facility]: Insurance:MEDICARE [facility]: [facility] PART BPolicy Number: [id number] Repository PEREZ [id number] [address] [place], [place] Date:2015-09-04 - [place], [place] [address]Roh: [phone]) [id number]: () Name:[facility] 705[facility] Administrators LLCPO ()Tel: [phone]) Uck [address], 0000000 () [place] [address]PL: 06/12/2018 REGINA J Primary REGINA J [facility] MOOREDOB: Insurance:[facility]ICARE [facility]OS[facility]ITALB: [facility] PART B INSCOPolicy [id number] Repository PEREZ Number: [address] [facility] [place] [id number] [place], [place] [address]Nxp: (495) Date:2017-02-15 89[address]Emb: (HP) [id number] [phone] Name:[facility] ()Tel: 000) Llvzrztfyklejm LLCPO 0000000 () [address] [place] [address]NN: 06/11/2018 Regina J Primary Regina J [facility] Ch[place] VistaDOB: Insurance:MedicarePol OpenWhereDOB: System icy Number: Effective [id number] Repository Perez Date: [place], [place] [address]Mam: (HP) 06/11/2018 Secondary Regina J [facility] Insurance:MedicarePol OpenWhereDOB: System icy Number: Effective [id number] Repository Date: 06/07/2018 Regina J Primary Regina J [facility] MooreDOB: Insurance:MedicarePol MooreDOB: System icy Number: Effective [id number] Repository Perez Date: [place], [place] [address]Pbe: () 06/07/2018 Secondary Regina J [facility] Insurance:MedicarePol OpenWhereDOB: System icy Number: Effective [id number] Repository Date: 06/04/2018 REGINA [id number] Primary REGINA [facility] PEREZ Insurance:MEDICAREPol [facility] RDMariangelFAIRMONT, [place] icy Number: Center [address]Smy: [phone]) [id number] Repository [phone] () Date:[address]UPFAXTCGBV, [place] [address]VJ: 06/03/2018 REGINA J Primary REGINA J Diannezach [id number] Insurance:MEDICARE MOOREDOB: Community PEREZ PART A BPolicy [id number] General HospitalDICKAfton, [place] Number: Repository [address]Ljo: [phone]) [id number] [phone] () Date:2018-06-03 06/03/2018 Secondary NOT GIVENUNK [place] Insurance:SELF PAY [facility] Number: Effective Repository Date:2018-06-03 06/02/2018 Regina J Primary Regina J [facility]: Insurance:MedicarePol [place]DOB: System icy Number: Effective [id number] Repository Perez Date: [place], [place] [address]Aoc: () 06/02/2018 Secondary Regina J [facility] Insurance:MedicarePol MooreDOB: System icy Number: Effective [id number] Repository Date: 06/02/2018 REGINA J Primary REGINA J [facility]: Insurance:MEDICARE MOOREDOB: [facility] PART BPolicy Number: [id number] Repository PEREZ [id number] [address] [place], [place] Date:2018-06-02 - [place], [place] [address]Meo: ([phone]) [id number] [address]Qlb: () Name:[id number] Administrators LLCPO ()Tel: ([phone]) Pmu [address], [phone] () [place] [address]MO: 06/01/2018 REGINA J Primary REGINA J [place] [address] Insurance:MEDICARE MOOREDOB: Community PEREZ PART A BPolicy [id number] [place] Number: Repository [address]Qkf: 330 [id number] [phone] () Date:2018-06-01 06/01/2018 Secondary NOT GIVENUNK Dianne Insurance:SELF PAY [facility] Number: Effective Repository Date:2018-06-01 06/01/2018 Primary REGINA J [facility] Insurance:MedicarePol MOOREDOB: [facility] icy Number: [id number] [facility] [id number] 2 [address] Repository Date:9789-48-71Atgh RDUNIONT[place], [place] Name:Shara Burger [address]Osv: (HP) 06/01/2018 Secondary REGINA J [facility] Insurance:MedicarePol MOOREDOB: [facility] Centerarturo Number: [id number] [facility] [id number] 2 [address] Repository Date:4821-33-50Vwtc [place] Name:Shara Craft [address]Bog: (HP) 05/31/2018 REGINA J Primary REGINA J [place] MOOREDOB: Insurance:[facility]B: Health System PART APolicy Number: [id number] Repository PEREZ Effective [facility] C[facility] SERVICESGersonSAN [place], [place] Date:2015-09-04 - [address]Xmi: [id number] Name:Luana (HP) () 05/31/2018 Secondary REGINA J [place] Insurance:MEDICARE MOOREDOB: Health System PART BPolicy Number: [id number] Repository Effective Date:2015-09-04 - [id number] Name:B 05/30/2018 REGINA J Primary REGINA J [place] [id number] Insurance:[facility]ICARE [facility] HOSPITALB: [facility] PEREZ PART A BPolicy [id number], [place] Number: Repository [address]Tqe: (777) [id number] [phone] () Date:2018-05-30 05/30/2018 Secondary NOT GIVENUNK [place] Insurance:SELF PAY [facility] Number: Effective Repository Date:2018-05-30 05/30/2018 REGINA J Primary REGINA J [facility] FREDONIADOB: Insurance:MEDICARE A [facility]B: Health System AND BPolicy Number: [id number] Repository PEREZ [id number] [place], [place] Date: [address]Rgg: () 05/30/2018 Regina J Primary Regina J [facility] MooreDOB: Insurance:MedicarePol [place]DOB: System icy Number: Effective [id number] Repository Perez Date: [place] [address]Kkj: (HP) 05/30/2018 Secondary Regina J [facility] Insurance:MedicarePol MooreDOB: System icy Number: Effective [id number] Repository Date: 05/30/2018 REGINA J Primary REGINA J [facility]: Insurance:[facility]ITALB: [facility] PART BPolicy Number: [id number] Repository PEREZ [id number] 2 [address] RDUNIONKATEWN, [place] Date:2018-05-30 - AMIEUNERINJAMESGerson, [place] [address]Luz: (523) [id number] [phone]: (HP) Name:[facility] Emre Administrators [facility] ()Tel: (761) Dxm [address], 0000000 () [place] [address]IS: 05/29/2018 Regina J Primary Regina J [facility] Insurance:MedicarePol [place]DOB: System icy Number: Effective [id number] Repository Perez Date: Karenweyers [place], [place] [address]Qxx: (HP) 05/29/2018 Secondary Regina J [facility] Insurance:MedicarePol [place]DOB: System icy Number: Effective [id number] Repository Date: 05/27/2018 REGINA J Primary REGINA J [facility]: Insurance:[facility]ITALB: [facility] PART BPolicy Number: [id number] Repository PEREZ [id number] 2 [address] [place]UN[place], [place] Date:2018-05-27 - [place]UNKRY[place], [place] [address]Wlu: ([phone]) [id number] [address]Ell: (HP) Name:[facility] [phone] Administrators LLCPO (HP)Tel: (291) Tzx [address], 000-0000 () [place] [address]ZF: 05/27/2018 Regina J Primary Regina J [facility] MooreDOB: Insurance:MedicarePol MooreDOB: System icy Number: Effective [id number] Repository Perez Date: [place], [place] [address]Gkk: (HP) 05/27/2018 Secondary Regina J [facility] Insurance:MedicarePol MooreDOB: System icy Number: Effective [id number] Repository Date: 05/26/2018 Regina J Primary Regina J [facility] MooreDOB: Insurance:MedicarePol [place]DOB: System icy Number: Effective [id number] Repository Perez Date: [place], [place] [address]Cyh: () 05/26/2018 Secondary Regina J [facility] Insurance:MedicarePol MooreDOB: System icy Number: Effective [id number] Repository Date: 05/21/2018 Regina J Primary Regina J [facility] MooreDOB: Insurance:MedicarePol MooreDOB: System icy Number: Effective [id number] Repository Perez Date: [place], [place] [address]Qjm: () 05/21/2018 Secondary Regina J [facility] Insurance:MedicarePol MooreDOB: System icy Number: Effective [id number] Repository Date: 05/20/2018 Regina J Primary Regina J [facility] MooreDOB: Insurance:MedicarePol MooreDOB: System icy Number: Effective [id number] Repository Perez Date: [place], [place] [address]Ksh: () 05/20/2018 Secondary Regina J [facility] Insurance:MedicarePol MooreDOB: System icy Number: Effective [id number] Repository Date: 05/20/2018 REGINA J Primary REGINA J [facility]: Insurance:[facility]B: [facility] PART BPolicy Number: [id number] Repository PEREZ [id number] [address] RDFORT LUPTONKATEGersonS[place], [place] Date:2018-05-20 - [place] [address]Bht: ([phone]) [id number] [address]Xvc: () Name:[facility] [id number] Administrators LLCPO ()Tel: (818) [address] [address]Dmbriewcm, 000-0000 () [place] [address]GD: 05/19/2018 Regina J Primary Regina J [facility] [email or web address] [facility] HospitalB: Insurance:MedicareSutter California Pacific [facility]: System icy Number: Effective [id number] Repository Perez Date: [place], [place] [address]Mkj: () 05/19/2018 Secondary [facility] Insurance:MedicarePol [facility]: System icy Number: Effective [id number] Repository Date: 05/14/2018 Regina J Primary Regina J [facility] Insurance:MedicarePol [facility]B: System icy Number: Effective [id number] Repository Perez Date: [place], [place] [address]Swa: () 05/14/2018 Secondary [facility] Insurance:MedicarePol [place]: System icy Number: Effective [id number] Repository Date: 05/14/2018 REGINA J [facility]: Health System AND BPolicy Number: [id number] Repository PEREZ [id number] [place] Date: [address]Mww: () 05/13/2018 Regina J Primary Regina J [facility]: Insurance:MedicarePol [facility]B: System icy Number: Effective [id number] Repository Perez Date: [place], [place] [address]Qij: (HP) 05/13/2018 Secondary Regina J [facility] icy Number: Effective [id number] Repository Date: 05/13/2018 REGINA J Primary [facility]A J [facility] Insurance:[facility] A [facility]: Health System AND BPolicy Number: [id number] Repository PEREZ [id number] [place], [place] Date: [address]Odv: (HP) 05/13/2018 REGINA J Primary [facility] J [facility]: Insurance:MEDICARE MOOREDOB: [facility] PART BPolicy Number: [id number] Repository PEREZ [id number] [address] [place], [place] Date:2018-05-13 - [place], [place] [address]Cyt: (338) [id number] [address]Wng: (HP) Name:[place] [address] Administrators LLCPO (HP)Tel: (000) [address] [address]Toqewjmun, 000-0000 (WP) [place] [address]NV: 05/12/2018 REGINA J [facility] Insurance:MEDICARE MOOREDOB: [facility] PART BPolicy Number: [id number] Repository PEREZ [id number] [address] [place], [place] Date:2018-05-12 - [place], [place] [address]Blr: 330 [id number] [address]Huo: (HP) Name:[facility] [phone] Administrators LLCPO (HP)Tel: (000) [address] [address]Qsswhtpxp, 000-0000 (WP) [place] [address]WK: 05/10/2018 REGINA J Primary REGINA J [facility]: Insurance:[facility]B: [facility] PART BPolicy Number: [id number] Repository PEREZ [id number] [address] [place] Date:2018-05-10 - [place] [address]Flj: (659) [id number] [address]Mvx: () Name:[facility] [phone] Administrators LLCPO (HP)Tel: (950) [address] [address]Gnjxtctil, 0000000 () [place] [address]CU: 05/10/2018 Regina J Primary Regina J [facility] [email or web address] [facility]B: Insurance:MedicarePol MooreDOB: System icy Number: Effective [id number] Repository Perez Date: [place], [place] [address]Lio: () 05/10/2018 Secondary Regina J [facility] Insurance:MedicarePol [employer]: System icy Number: Effective [id number] Repository Date: 05/08/2018 Regina J Primary Regina J [facility] [email or web address] [facility]B: Insurance:MedicarePol TournEaseB: System icy Number: Effective [id number] Repository Perez Date: [place], [place] [address]Imt: () 05/08/2018 Secondary Regina J [facility] Insurance:MedicarePol TournEaseB: System icy Number: Effective [id number] Repository Date: 05/07/2018 REGINA J Primary REGINA J [facility]: Insurance:MEDICARE A Borderfree: Health System AND BPolicy Number: [id number] Repository PEREZ [id number] [place] Date: [address]Nix: () 05/06/2018 REGINA J Primary REGINA J [facility]: Insurance:MEDICARE A MOOREDOB: Health System AND BPolicy Number: [id number] Repository PEREZ [id number] [place], [place] Date: [address]Jev: (HP) 05/04/2018 REGINA J Primary [facility] J [facility]: Insurance:MEDICARE A FREDONIADOB: Health System AND BPolicy Number: [id number] Repository PEREZ [id number] [place], [place] Date: [address]Eqx: (HP) 05/04/2018 Regina J Primary Regina J [facility]B: Insurance:MedicarePol [facility]B: System icy Number: Effective [id number] Repository Perez Date: [address], [place] [address]Mfp: () 05/04/2018 Secondary Regina J [facility] Insurance:MedicarePol [facility]B: System icy Number: Effective [id number] Repository Date: 05/02/2018 Regina J Primary Regina J [facility]B: Insurance:MedicarePol [place]DOB: System icy Number: Effective [id number] Repository Perez Date: [place], [place] [address]Oke: (HP) 05/02/2018 Secondary Regina J [facility] Insurance:MedicarePol [place]DOB: System icy Number: Effective [id number] Repository Date: 05/02/2018 REGINA J Primary REGINA J [facility]: Insurance:MEDICARE FREDONIADOB: [facility] PART BPolicy Number: [id number] Repository PEREZ [id number] [address] [place], [place] Date:2018-05-02 - [place], [place] [address]Pxt: [phone]) [id number] [address]Wog: () Name:[facility] [phone] Administrators LLCPO (HP)Tel: ([phone]) Pji [address], 000-0000 (WP) [place] [address]KD: 05/02/2018 Regina J Primary Regina J [facility] MooreDOB: Insurance:MedicarePol MooreDOB: System icy Number: Effective [id number] Repository Perez Date: [place], [place] [address]Tbh: (HP) 05/02/2018 Secondary Regina J [facility] Insurance:MedicarePol MooreDOB: System icy Number: Effective [id number] Repository Date: 05/01/2018 Regina J Primary Regina J [facility] MooreDOB: Insurance:MedicarePol [place]DOB: System icy Number: Effective [id number] Repository Perez Date: [place], [place] [address]Ehg: () 05/01/2018 Secondary Regina J [facility] Insurance:MedicarePol MooreDOB: System icy Number: Effective [id number] Repository Date: 05/01/2018 Regina J Primary Regina J [facility] MooreDOB: Insurance:MedicarePol MooreDOB: System icy Number: Effective [id number] Repository Perez Date: [place], [place] [address]Ali: () 05/01/2018 Secondary Regina J [facility] Insurance:MedicarePol MooreDOB: System icy Number: Effective [id number] Repository Date: 05/01/2018 Regina J Primary Regina J [facility] MooreDOB: Insurance:MedicarePol MooreDOB: System icy Number: Effective [id number] Repository Perez Date: [place], [place] [address]Nzp: (HP) 05/01/2018 Secondary Regina J [facility] Insurance:MedicarePol MooreDOB: System icy Number: Effective [id number] Repository Date: 04/29/2018 Regina J Primary Regina J [facility] MooreDOB: Insurance:MedicarePol [place]DOB: System icy Number: Effective [id number] Repository Perez Date: [place] [address]Eeu: () 04/29/2018 Secondary [facility] J [facility] Insurance:MedicareResearch Medical CenterDOB: System icy Number: Effective [id number] Repository Date: 04/29/2018 Regina J [facility]ina J [facility] Insurance:MedicareResearch Medical CenterDOB: System icy Number: Effective [id number] Repository Perez Date: [place] [address]Grf: () 04/29/2018 Secondary Regina J [facility] Insurance:MedicarePol MooreDOB: System icy Number: Effective [id number] Repository Date: 04/29/2018 REGINA J Primary REGINA J [facility]: Insurance:MEDICARE MOOREDOB: [facility] PART BPolicy Number: [id number] Repository PEREZ [id number] [address] [place], [place] Date:2018-04-29 - [place] [address]Phg: ([phone]) [id number] [address]Atj: () Name:[facility] 801[facility] Administrators LLCPO ()Tel: (755) Jrq [address], 0000000 () [place] [address]UT: 04/28/2018 Regina J Primary Regina J [facility] HospitalDOB: Insurance:MedicareResearch Medical CenterDOB: System icy Number: Effective [id number] Repository Perez Date: [place] [address]Upb: (HP) 04/28/2018 Secondary Regina J [facility] Insurance:MedicareSutter California Pacific Medical CenterB: System icy Number: Effective [id number] Repository Date: 04/23/2018 REGINA J Primary REGINA J [facility] FREDONIADOB: Insurance:MEDICARE A MOOREDOB: Health System AND BPolicy Number: [id number] Repository PEREZ [id number] [place], [place] Date: [address]Bta: (HP) 04/23/2018 REGINA J Primary REGINA J [facility] FREDONIADOB: Insurance:MEDICARE A MOOREDOB: Health System AND BPolicy Number: [id number] Repository PEREZ [id number] [place], [place] Date: [address]Grq: (HP) 04/19/2018 Regina J Primary Regina J [facility]B: Insurance:MedicarePol [place]DOB: System icy Number: Effective [id number] Repository Perez Date: [address]Jensen[place], [place] [address]Xnr: (HP) 04/19/2018 Secondary Regina J [facility] Insurance:MedicarePol [place]DOB: System icy Number: Effective [id number] Repository Date: 04/14/2018 Regina J Primary Regina J [facility] [place]DOB: Insurance:MedicarePol [place]DOB: System icy Number: Effective [id number] Repository Perez Date: [place], [place] [address]Qwa: () 04/14/2018 Secondary Regina J [facility] Insurance:MedicarePol MooreDOB: System icy Number: Effective [id number] Repository Date: 04/12/2018 Regina J Primary Regina J [facility] [place]DOB: Insurance:MedicarePol MooreDOB: System icy Number: Effective [id number] Repository Perez Date: [place] [address]Mem: (HP) 04/12/2018 Secondary Regina J [facility] Insurance:MedicarePol MooreDOB: System icy Number: Effective [id number] Repository Date: 04/09/2018 Regina J Primary Regina J [facility]: Insurance:MedicarePol MooreDOB: System icy Number: Effective [id number] Repository Perez Date: [place], [place] [address]Tgm: (HP) 04/09/2018 Secondary Regina J [facility] Insurance:MedicarePol MooreDOB: System icy Number: Effective [id number] Repository Date: 04/08/2018 REGINA J Primary REGINA J [facility]: Insurance:[facility]B: [facility] PART BPolicy Number: [id number] Repository PEREZ [id number] 2 P[address] [facility], [place] Date:2018-04-08 - [place], [place] [address]Oto: [phone]) [id number] [address]Pva: (HP) Name:[place] [address] Administrators LLCPO (HP)Tel: (000) [address] [address]Ogbnidnvv, 000-0000 (WP) [place] [address]GZ: 04/07/2018 REGINA J Primary REGINA Jose [facility]: Insurance:MEDICARE MOOREDOB: [facility] PART BPolicy Number: [id number] Repository PEREZ [id number] 2 [address] [facility] [place] Date:2018-04-07 - [place], [place] [address]Nex: 330 [id number] [address]Htx: (HP) Name:[address] Administrators LLCPO (HP)Tel: (000) [address] [address]Azcydajpi, 000-0000 ([place]) [place] [address]UQ: 04/04/2018 REGINA [id number] Primary REGINA [facility] [place] PERE[address] Insurance:MEDICAREPol [facility] [place], [place] icy Number: Center [id number]: (868) [id number] Repository [phone] (HP) Date:[address], [place] [address]TX: 03/24/2018 REGINA [id number] Primary REGINA [facility] [place] PERE[address] Insurance:MEDICAREPol [facility] [place], [place] icy Number: Center [id number]: (008) [id number] Repository [phone] (HP) Date:[address]BNCYBJZF, [place] [address]HP: 03/21/2018 Regina J Primary Regina J [facility] [email or web address] [facility]B: Insurance:MedicarePol MooreDOB: System icy Number: Effective [id number] Repository Perez Date: [place], [place] [address]Ish: (HP) 03/21/2018 Secondary Regina J [facility] Insurance:MedicarePol [employer]: System icy Number: Effective [id number] Repository Date: 03/21/2018 REGINA J Primary REGINA J [facility]: Insurance:MEDICARE MOOREDOB: [facility] PART BPolicy Number: [id number] Repository PEREZ [id number] [address] [place], [place] Date:2018-03-21 - [place], [place] [address]Ncb: [phone] [id number] [address]Dly: (HP) Name:[facility] [phone] Administrators LLCPO (HP)Tel: (934) Pto [address], 000-0000 () [place] [address]TP: 03/08/2018 Regina J Primary Regina J [facility] [email or web address] [facility]B: Insurance:MedicarePol MooreDOB: System icy Number: Effective [id number] Repository Perez Date: [place], [place] [address]Pio: (HP) 03/08/2018 Secondary Regina J [facility] Insurance:MedicarePol [place]DOB: System icy Number: Effective [id number] Repository Date: 03/03/2018 REGINA J Primary REGINA J [facility]: Insurance:MEDICARE MOOREDOB: [facility] PART BPolicy Number: [id number] Repository PEREZ [id number] [address] [place], [place] Date:2018-03-03 - [place], [place] [address]Amy: [phone]) [id number] [address]Wtc: (HP) Name:[facility] 673[facility] Administrators LLCPO ()Tel: (791) [address] [address]Ggcfolwii, 000-0000 () [place] [address]IA: 03/02/2018 REGINA J Primary [facility] J [facility]: Insurance:MEDICARE A MOOREDOB: Health System AND BPolicy Number: [id number] Repository PEREZ [id number] [place], [place] Date: [address]Eyx: (HP) 03/02/2018 Regina J Primary Regina J [facility]: Insurance:MedicarePol MooreDOB: System icy Number: Effective [id number] Repository Perez Date: [place], [place] [address]Qfw: () 03/02/2018 Secondary Regina J [facility] Insurance:MedicarePol [place]DOB: System icy Number: Effective [id number] Repository Date: 03/01/2018 REGINA J Primary REGINA J [facility]: Insurance:MEDICARE MOOREDOB: [facility] PART BPolicy Number: [id number] Repository PEREZ [id number] [address] [place], [place] Date:2018-03-01 - [place], [place] [address]Jvg: (607) [id number] [address]Ywk: (HP) Name:[place] [id number] Administrators LLCPO (HP)Tel: (000) [address] [address]Azrbhrefi, 000-0000 (WP) [place] [address]FR: 02/20/2018 REGINA J Primary REGINA J [facility]: Insurance:[facility]B: [facility] PART BPolicy Number: [id number] Repository PEREZ [id number] [address] [place] Date:2018-02-20 - [place] [address]Oyx: (063) [id number] [address]Zjd: (HP) Name:[place] [address]-[facility] Administrators LLCPO (HP)Tel: (000) [address] [address]Pdhkwaevh, 000-0000 (WP) [place] [address]HI: 02/20/2018 Regina J Primary Regina J [facility]B: Insurance:MedicarePol MooreDOB: System icy Number: Effective [id number] Repository Perez Date: [place] [address]Qve: (HP) 02/20/2018 Secondary Regina J [facility] Insurance:MedicarePol MooreDOB: System icy Number: Effective [id number] Repository Date: 02/13/2018 REGINA J Primary REGINA J [place] [id number] Insurance:MEDICAREPol [facility] [place] PEREZ icy Number: Repository [place] [id number] [address]Aii: (330) Date:2015-09-04P O [phone] (HP) [address]420EM[place]XA[place], [place] [address]YS: 02/11/2018 REGINA J Primary REGINA J [place] [id number] Insurance:MEDICAREPol [facility] PEREZ icy Number: Repository [place], [place] [id number] [address]Btc: (330) Date:2015-09-04P O [phone] () [address]WVBB CODE NA480MWTFMJDR, [place] [address]KW: 02/08/2018 Regina J Primary Regina J [facility]B: Insurance:MedicarePol MooreDOB: System icy Number: Effective [id number] Repository Perez Date: [place], [place] [address]Lrp: (HP) 02/08/2018 Secondary Regina J [facility]: System icy Number: Effective [id number] Repository Date: 02/08/2018 REGINA J Primary REGINA J [facility]: Insurance:MEDICARE MOOREDOB: [facility] PART BPolicy Number: [id number] Repository PEREZ [id number] 2 [address] [place], [place] Date:2018-02-08 - [facility], [place] [address]Cpt: ([phone]) [phone] [address]Rij: () Name:[place] [address] Administrators LLCPO ()Tel: (134) Otf [address]Dvsypsvuu, 000-0000 () [place] [address]UL: 02/02/2018 REGINA J Primary [facility] J [facility]: Insurance:MEDICARE A MOOREDOB: Health System AND BPolicy Number: [id number] Repository PEREZ [id number] [place], [place] Date: [address]Sdy: () 01/28/2018 Regina J Primary Regina J [facility]: Insurance:MedicarePol MooreDOB: System icy Number: Effective [id number] Repository Perez Date: [place] [address]Pwd: () 01/28/2018 Secondary Regina J [facility] Insurance:MedicarePol [facility]B: System icy Number: Effective [id number] Repository Date: 01/26/2018 REGINA J Primary REGINA J [facility]: Insurance:MEDICARE [facility]: Health System AND BPolicy Number: [id number] Repository PEREZ [id number] [place], [place] Date: [address]Cpj: () 01/12/2018 Regina J Primary Regina J [facility]B: Insurance:Med[facility]areSutter California Pacific Medical CenterB: System icy Number: Effective [id number] Repository Perez Date: [place] [address]Sem: () 01/12/2018 Secondary Regina J [facility] Insurance:MedicarePol MooreDOB: System icy Number: Effective [id number] Repository Date: 01/11/2018 REGINA J Primary REGINA J [facility]: Insurance:MEDICARE MOOREDOB: [facility] PART BPolicy Number: [id number] Repository PEREZ [id number] 2 [address] [place], [place] Date:2018-01-11 - [place], [place] [address]Yao: (313) [id number] [address]Mrs: () Name:[place] [address] Administrators LLCPO ()Tel: (611) Umv [address]sbh[place], [phone] () [place] [address]ZG: 01/08/2018 Regina J Primary Regina J [facility]B: Insurance:MedicarePol MooreDOB: System icy Number: Effective [id number] Repository Perez Date: [place] [address]Bzm: () 01/08/2018 Secondary Regina J [facility] Insurance:MedicarePol MooreDOB: System icy Number: Effective [id number] Repository Date: 01/07/2018 REGINA J Primary REGINA J [facility]: Insurance:MEDICARE FREDONIADOB: [facility] PART BPolicy Number: [id number] Repository PEREZ [id number] [address] [place], [place] Date:2018-01-07 - [place], [place] [address]Wtj: ([phone]) [phone] [address]Vnw: (HP) Name:[facility] [phone] Administrators LLCPO (HP)Tel: 000) [address] [address]Fqscnnksw, 000-0000 (WP) [place] [address]KU: 01/05/2018 REGINA J Primary [facility]GINA J [facility]: Insurance:MEDICARE A MOOREDOB: Health System AND BPolicy Number: [id number] Repository PEREZ [id number] [place], [place] Date: [address]Rqk: (HP) 12/16/2017 REGINA J Primary REGINA J [facility]: Insurance:MEDICARE MOOREDOB: [facility] PART BPolicy Number: [id number] Repository PEREZ [id number] 2 [address] [place], [place] Date:2017-12-16 - [place], [place] [address]Hpc: (373) [id number] [address]Uma: (HP) Name:[facility] [phone] Administrators LLCPO ()Tel: 000) [address] [address]Tufqpusgj, 000-0000 (WP) [place] [address]XW: 12/15/2017 Regina J Primary Regina J [facility]B: Insurance:MedicareSutter California Pacific Medical CenterB: System icy Number: Effective [id number] Repository Perez Date: [place], [place] [address]Ekd: (HP) 12/15/2017 Secondary Regina J [facility] Insurance:MedicarePol [facility]B: System icy Number: Effective [id number] Repository Date: 12/15/2017 REGINA J Primary [facility] J [facility]: Insurance:[facility] A [facility]: Health System AND BPolicy Number: [id number] Repository PEREZ [id number] [place], [place] Date: [address]Iut: (HP) 12/14/2017 Regina J Primary Regina J [facility]B: Insurance:MedicarePol [facility]B: System icy Number: Effective [id number] Repository Perez Date: [place], [place] [address]Dxf: (HP) 12/14/2017 Secondary Regina J [facility] Insurance:MedicarePol MooreDOB: System icy Number: Effective [id number] Repository Date: 12/14/2017 REGINA J Primary REGINA J [facility]: Insurance:MEDICARE MOOREDOB: [facility] PART BPolicy Number: [id number] Repository PEREZ [id number] [address] [place], [place] Date:2017-12-14 - [place], [place] [address]Ohn: (089) [id number] [address]Xmb: () Name:[facility] 700[facility] Administrators LLCPO ()Tel: (131) Ees [address], [phone] () [place] [address]BC: 12/08/2017 REGINA J Primary REGINA J [facility]: Insurance:[facility]B: [facility] PART BPolicy Number: [id number] Repository PEREZ [id number] [address] [place], [place] Date:2017-12-08 - [place], [place] [address]Qiz: (392) [id number] [address]Cpo: () Name:[facility] [phone] Administrators LLCPO (HP)Tel: (327) Mbh [address], 0000000 () [place] [address]VC: 12/07/2017 REGINA J Primary REGINA J [facility]: Insurance:[facility]ICARE A [facility]: Health System AND BPolicy Number: [id number] Repository PEREZ [id number] [place], [place] Date: [address]Ubt: (HP) 12/06/2017 Regina J Primary Regina J [facility]B: Insurance:MedicareSutter California Pacific Medical CenterB: System icy Number: Effective [id number] Repository Perez Date: [place], [place] [address]Rxu: () 12/06/2017 Secondary Regina J [facility] Insurance:MedicareSutter California Pacific Medical CenterB: System icy Number: Effective [id number] Repository Date: 12/01/2017 REGINA J Primary REGINA J [facility]: Insurance:[facility]ICARE A [facility]B: Health System AND BPolicy Number: [id number] Repository PEREZ [id number] [place], [place] Date: [address]Yhb: () 11/30/2017 Regina J Primary Regina J [facility]B: Insurance:MedicarePol [place]: System icy Number: Effective [id number] Repository Perez Date: [place], [place] [address]Ihk: () 11/30/2017 Secondary Regina J [facility] Insurance:MedicarePol [place]: System icy Number: Effective [id number] Repository Date: 11/30/2017 REGINA J Primary REGINA J [facility]: Insurance:[facility]B: [facility] PART BPolicy Number: [id number] Repository PEREZ [id number] [address] [place], [place] Date:2017-11-30 - [place] [address]Fqw: 330 [id number] [address]Kmk: (HP) Name:[place] [address] Administrators LLCPO (HP)Tel: (000) [address] [address]Ytlylwspw, 000-0000 (WP) [place] [address]MN: 11/19/2017 REGINA J Primary REGINA J [facility]: Insurance:MEDICARE MOOREDOB: [facility] PART BPolicy Number: [id number] Repository PEREZ [id number] [address] [place], [place] Date:2017-11-19 - [place] [address]Vqf: (822) [id number] [address]Gzj: (HP) Name:[place] [address] Administrators LLCPO (HP)Tel: (000) [address] [address]Pzmqwilkt, 000-0000 (WP) [place] [address]JY: 11/19/2017 Regina J Primary Regina J [facility] [email or web address] [facility]B: Insurance:MedicarePol MooreDOB: System icy Number: Effective [id number] Repository Perez Date: [place], [place] [address]Orp: (HP) 11/19/2017 Secondary Regina J [facility] Insurance:MedicarePol MooreDOB: System icy Number: Effective [id number] Repository Date: 11/18/2017 Regina J Primary Regina J [facility]: Insurance:MedicarePol MooreDOB: System icy Number: Effective [id number] Repository Perez Date: [place], [place] [address]Nzp: (HP) 11/18/2017 Secondary Regina J [facility] Insurance:[facility] CenterB: System icy Number: Effective [id number] Repository Date: 11/17/2017 REGINA J Primary REGINA J [facility]: Insurance:[facility]: Health System AND BPolicy Number: [id number] Repository [address]EREZ [id number] [place], [place] Date: [address]Lwc: (HP) 11/17/2017 REGINA J [facility]: Health System AND BPolicy Number: [id number] Repository PEREZ [id number] [place], [place] Date: [address]Gdr: (HP) 11/14/2017 REGINA J Primary REGINA J [facility]: Insurance:MEDICARE MOOREDOB: [facility] PART BPolicy Number: [id number] Repository PEREZ [id number] [address] [place], [place] Date:2017-11-14 - [place], [place] [address]Wvb: [phone]) [id number] [address]Awi: (HP) Name:[facility] Administrators LLCPO ()Tel: (538) Oav [address], 000[address] () [place] [address]LK: 11/13/2017 Regina J Primary Regina J [facility] [email or web address] [facility] HospitalB: Insurance:MedicareSutter California Pacific Medical CenterB: System icy Number: Effective [id number] Repository Perez Date: [place], [place] [address]Htu: (HP) 11/13/2017 Secondary Regina J [facility] Insurance:[facility] CenterB: System icy Number: Effective [id number] Repository Date: 11/10/2017 Regina J Primary Regina J [facility] [email or web address] [facility]B: Insurance:MedicarePol MooreDOB: System icy Number: Effective [id number] Repository Perez Date: [place], [place] [address]Phk: () 11/10/2017 Secondary Regina J [facility] Insurance:MedicarePol MooreDOB: System icy Number: Effective [id number] Repository Date: 11/09/2017 REGINA J [facility] Insurance:MEDICARE MOOREDOB: Foundation PART BPolicy Number: [id number] Repository PEREZ [id number] [address] [place], [place] Date:2017-11-09 - [place], [place] [address]Vdv: [phone] [id number] [address]Vqo: (HP) Name:[facility] Administrators LLCPO ()Tel: (365) [place]h [address], 000-[address] () [place] [address]UP: 11/08/2017 Regina J Primary Regina J [facility] Health MooreDOB: Insurance:MedicarePol MooreDOB: System icy Number: Effective [id number] Repository Perez Date: [place], [place] [address]Plv: () 11/08/2017 Secondary Regina J [facility] Insurance:MedicarePol MooreDOB: System icy Number: Effective [id number] Repository Date: 11/02/2017 Regina J Primary Regina J [facility] Health MooreDOB: Insurance:MedicarePol MooreDOB: System icy Number: Effective [id number] Repository Perez Date: [place], [place] [address]Oeg: () 11/02/2017 Secondary Regina J [facility] Insurance:MedicarePol MooreDOB: System icy Number: Effective [id number] Repository Date: 10/18/2017 REGINA J Primary REGINA J [facility] MOOREDOB: Insurance:MEDICARE A MOOREDOB: Health System AND BPolicy Number: [id number] Repository PEREZ [id number] RDRENANJ[place], [place] Date: [address]Txl: (HP) 10/18/2017 Regina J Primary Regina J [facility]: Insurance:MedicarePol [place]DOB: System icy Number: Effective [id number] Repository Perez Date: [address]we[address] [place], [place] [address]Sqs: (HP) 10/18/2017 Secondary Regina J [facility] Insurance:MedicarePol [place]DOB: System icy Number: Effective [id number] Repository Date: 10/18/2017 REGINA J Primary REGINA J [facility]: Insurance:[facility]B: Foundation PART BPolicy Number: [id number] Repository PEREZ [id number] 2 [address] [place] [place], [place] Date:2017-10-18 - [place]HRZADIONGLORYSAN [place], [place] [address]Woq: [phone] [address]Ulm: () Name:[facility] 7[address] Administrators LLCPO ()Tel: [phone]) Lme [address], [address] () [place] [address]NL: 10/13/2017 Regina J Primary Regina J [facility] MooreDOB: Insurance:MedicarePol [facility] HospitalB: System icy Number: Effective [id number] Repository Perez Date: [place], [place] [address]Mck: () 10/13/2017 Secondary Regina J [facility] Insurance:MedicareSutter California Pacific Medical CenterB: System icy Number: Effective [id number] Repository Date: 10/13/2017 REGINA J Primary REGINA J [facility] FREDONIADOB: Insurance:[facility] A [facility]B: Health System AND BPolicy Number: [id number] Repository PEREZ [id number] [place], [place] Date: [address]Tkx: (HP) 10/03/2017 Regina J Primary Regina J [facility]B: Insurance:MedicarePol MooreDOB: [facility] icy Number: Effective [id number] Repository Perez Date: [place], [place] [address]Uzo: (HP) 10/03/2017 Secondary Regina J [facility] Insurance:MedicarePol MooreDOB: System icy Number: Effective [id number] Repository Date: 09/29/2017 REGINA J Primary REGINA J [facility]: Insurance:MEDICARE A MOOREDOB: Health System AND BPolicy Number: [id number] Repository PEREZ [id number] [place], [place] Date: [address]Nyb: () 09/21/2017 REGINA J Primary [facility]: Insurance:MEDICARE MOOREDOB: [facility] PART BPolicy Number: [id number] Repository PEREZ [id number] [address] [place], [place] Date:2017-09-21 - [place], [place] [address]Jlv: [phone] [address]Sxl: () Name:[facility] Administrators LLCPO ()Tel: ([phone]) Mqd [address], [phone] () [place] [address]QN: 09/19/2017 REGINA J Primary REGINA J [facility]: Insurance:[facility]B: [facility] PART BPolicy Number: [id number] Repository PEREZ [id number] [address] [place], [place] Date:2017-09-19 - [place], [place] [address]Onc: [phone] [address]Phl: (HP) Name:[facility] [address] Administrators LLCPO (HP)Tel: (000) [address] [address]Hkjnyokhr, 000-0000 ([place]) [place] [address]OC: 09/13/2017 REGINA J Primary REGINA J [facility]: Insurance:[facility]ICARE [facility]: [facility] System AND BPolicy Number: [id number] Repository PEREZ [id number] [place], [place] Date: [address]Vzu: (HP) 09/04/2017 REGINA J Primary REGINA J [facility]: Insurance:MEDICARE MOOREDOB: [facility] PART BPolicy Number: [id number] Repository PEREZ [id number] [address] [place], [place] Date:2017-09-04 - [place], [place] [address]Cut: 330 [id number] [address]Pke: (HP) Name:[facility] 7[address]43 Administrators LLCPO (HP)Tel: (000) [address] [address]Wevccjmve, 000-0000 ([place]) [place] [address]UH: 09/01/2017 REGINA J Primary REGINA J [facility]: Insurance:MEDICARE MOOREDOB: [facility] PART BPolicy Number: [id number] Repository PEREZ [id number] [address] [place], [place] Date:2017-09-01 - [place], [place] [address]Llf: 330 [id number] [address]Bap: (HP) Name:[facility] [phone] Administrators LLCPO (HP)Tel: (000) [address] [address]Demdcpuxa, 000-0000 ([place]) [place] [address]QF: 09/01/2017 REGINA J Primary REGINA J [facility] MOOREDOB: [facility] icy Number: [id number] Hospital PEREZ [id number] 2 P[address] Repository [facility], Date: [place], [place] [address]Dxn: [place] [address] (HP) 09/01/2017 Secondary REGINA J Bell Insurance:MEDICAREPol MOOREDOB: [facility] icy Number: [id number] Hospital [id number] 2 PEREZ Repository Date: [place] [address] 08/23/2017 REGINA J Primary REGINA J [facility]: Insurance:MEDICARE MOOREDOB: [facility] BPolicy Number: [id number] Repository PEREZ [id number] [address] [place], [place] Date:2017-08-23 - [place], [place] [address]Bds: 330 [id number] [address]Yyv: (HP) Name:[place] [address] Administrators LLCPO ()Tel: (000) [address] [address]Rocmtdzdy, 000-0000 ([place]) [place] [address]FV: 08/20/2017 REGINA J Primary REGINA J [facility]: Insurance:MEDICARE MOOREDOB: [facility] PART BPolicy Number: [id number] Repository PEREZ [id number] [address] [place], [place] Date:2017-08-20 - [place], [place] [address]Wmz: 330 [id number] [address]Vbu: (HP) Name:[place] [address]-[facility] Administrators LLCPO (HP)Tel: (000) [address] [address]Pujhtbtxt, 000-0000 (WP) [place] [address]DE: 08/20/2017 REGINA J Primary REGINA J [facility]: Insurance:MEDICARE MOOREDOB: [facility] [id number] PART B OPPolicy [id number] Repository PEREZ Number: [address] [place], [place] [id number] RDUNIONK[place], [place] [address]Gps: (330) Date:1959-08-04 O [address]Cca: (HP) [address] [address]YJQXYRDBN, [phone] (HP) [place] [address]MS: 08/17/2017 REGINA J Primary REGINA J [facility] MOOREDOB: Insurance:MEDICARE [facility]: [facility] PART BPolicy Number: [id number] Repository PEREZ [id number] [address] [place], [place] Date:2017-08-17 - [place], [place] [address]Gsr: ([phone] [id number] [address]Pke: () Name:[place] [address] Administrators LLCPO ()Tel: (000) [address] [address]Gfkgvrufv, 000-0000 () [place] [address]YV: 08/14/2017 Regina J Primary Ergina J [facility] [employer] [facility]B: Insurance:MedicarePol MooreSandForce: [facility] icy Number: Effective [id number] Repository Perez Date: [place], [place] [address]Bih: () 08/14/2017 Secondary Regina J [facility] Insurance:MedicarePol [facility] HospitalB: System icy Number: Effective [id number] Repository Date: 08/11/2017 REGINA J Primary REGINA J [facility]: Insurance:[facility]: Health System AND BPolicy Number: [id number] Repository PEREZ [id number] RDUN[place], [place] Date: [address]Eoi: (HP) 08/11/2017 REGINA J Primary REGINA J [facility]: Insurance:[facility]: [facility] PART BPolicy Number: [id number] Repository PEREZ [id number] [address] [place], [place] Date:2017-08-11 - [place], [place] [address]Gmd: 330 [id number] [address]Qln: (HP) Name:[facility] [id number] Administrators LLCPO (HP)Tel: (000) [address] [address]Zhnayzpnf, 000-0000 (WP) [place] [address]LH: 08/04/2017 REGINA J Primary REGINA J [facility]: Insurance:MEDICARE A MOOREDOB: Health System AND BPolicy Number: [id number] Repository PEREZ [id number] [place], [place] Date: [address]Cvk: (HP) 08/03/2017 REGINA J Primary REGINA J [facility]: Insurance[facility]: Hospital PART B OPPolicy [id number] Repository PEREZ Number: [address] [place], [place] [id number] [place]UN[place], [place] [address]Xbm: (330) Date:1959-08-04 O [address]Pyk: (HP) [address] [address]CILWVLSAM, [phone] (HP) [place] [address]UQ: 08/02/2017 REGINA J Primary REGINA J [facility] HospitalDOB: Insurance:MEDICARE FREDONIADOB: Hospital PART B OPPolicy [id number] Repository PEREZ Number: [address] [place], [place] [id number] [place], [place] [address]Vlm: (330) Date:1959-08-04P O [address]Kyq: (HP) [address] [address]WVXARFCUC, [phone] (HP) [place] [address]HB: 08/01/2017 REGINA J Primary REGINA J [facility]: Insurance:[facility]: Health System AND BPolicy Number: [id number] Repository PEREZ [id number] [place], [place] Date: [address]Rqj: (HP) 07/31/2017 REGINA J Primary REGINA J [facility]: Insurance:[facility]: [facility] PART BPolicy Number: [id number] Repository PEREZ [id number] [address] [place], [place] Date:2017-07-31 - [place]UN[place], [place] [address]Drt: [phone] [phone] [address]Txe: () Name:[facility] 851[facility] Administrators LLCPO ()Tel: ([phone]) Ghe [address], 000-0000 () [place] [address]FO: 07/31/2017 Regina J Primary Regina J [facility]B: Insurance:MedicarePol MooreDOB: System icy Number: Effective [id number] Repository Perez Date: [place], [place] [address]Xgz: (HP) 07/31/2017 Secondary Regina J [facility] Insurance:MedicarePol MooreDOB: System icy Number: Effective [id number] Repository Date: 07/31/2017 REGINA J Primary REGINA J [facility]: Insurance:[facility]: Health System AND BPolicy Number: [id number] Repository PEREZ [id number] [place], [place] Date: [address]Ffj: (HP) 07/25/2017 REGINA J Primary REGINA J [facility]: Insurance:[facility]: Hospital PART B OPPolicy [id number] Repository PEREZ Number: [address] [place], [place] [id number] [place]UNION[place]OW[place], [place] [address]Jby: 330) Date:1959-08-04 O [address]Jov: (HP) [address] [address]BEJFBYUYT, [phone] (HP) [place] [address]OB: 07/24/2017 REGINA Garcia Primary REGINA PEREIRADOB: Insurance:MEDICAREPol MOOREDOB: [facility] icy Number: [id number] Hospital PEREZ [id number] 2 [address] Repository [place], Date: [place], [place] [address]Bez: [place] [address] (HP) 07/24/2017 Secondary REGINA Bell Insurance:MEDICAREPol MOOREDOB: [facility] icy Number: [id number] Hospital [id number] 2 PERE[address] Repository Date: [place] [address] 07/24/2017 REGINA ROACHB: Primary [facility]: [place] Insurance:MedicarePol [id number] Hospitals PEREZ icy Number: [address] [facility], [id number] [place], [place] [address]Lbg: Date:Plan Name:[facility] [address]Jpo: A (HP) (HP) 07/24/2017 Secondary REGINA ROACH: [place] Insurance:MedicarePol [id number] Hospitals icy Number: 2 P[address] Repository [id number] RO[facility]ION[facility], Date:Plan Name:[facility] [address]Ahl: B (HP)
== END 2018-07-05 12:27 | disposition home or self-care (01) ==
LOC: ED 11:38
PROVIDERS: Emergency Provider Emergency Medicine
DX: M54.9 Dorsalgia, unspecified (principal); G89.29 Other chronic pain; L30.9 Dermatitis, unspecified; Z79.01 Long term (current) use of anticoagulants; Z79.899 Other long term (current) drug therapy
CPT/HCPCS: 96372; 99282

== ENCOUNTER 2018-07-09 11:23 | Emergency (ER) | payer MEDICARE, SELFPAY ==
--- NOTE | 2018-07-09 11:26 | ED.RN ---
PT DECIDED TO LEAVE WITHOUT BEING SEEN. STATES DOES NOT WANT TO WAIT IN WAITING ROOM
== END 2018-07-09 11:30 | disposition left against medical advice (07) ==
LOC: ED 11:34
PROVIDERS: Emergency Provider Emergency Medicine
DX: M54.9 Dorsalgia, unspecified (principal)

== ENCOUNTER 2018-07-12 10:36 | Emergency (ER) | payer MEDICARE, SELFPAY ==
[2018-07-12 10:39] VITALS: BP 123/82; PULSE 107; RESP 17; TEMP 36.9; O2SAT 98; BMI 34.9
--- NOTE | 2018-07-12 10:52 | ED.VISSUMM ---
- ER Visit Summary Date of Service: 07/12/18 Chief Complaint: Chronic back pain, psoriasis History of Present Illness: The patient is a 67 F who presents with her chronic back pain symptoms. She takes 3 Percocet a day from pain management. However, she states that this does not help. She has spoke with her pain management doctor, Dr. Juarez about changing her regimen but he has not done this. She states that she cannot sleep at night and nothing helps. She also complains of itching in her legs. She has a history of psoriasis. She has tried triamcinolone cream from a butter melter but she states that that does not help. Physical Examination: Vital signs reviewed. HEENT exam unremarkable. Heart is regular rate and rhythm without murmurs. Lungs are clear to auscultation. Abdomen is soft and nontender. Back exam is tender in the lumbar spine area. Extremities reveal no edema. Skin exam reveals psoriasis of the legs. Neurologic exam normal. Test Results: None performed Emergency Department Course and Treatment: Patient will be given a shot of Toradol. She requested either to Percocet or Dilaudid. However, I do not feel that giving this patient narcotics would be prudent at this time. I will give her prednisone as well. She will be given topical hydrocortisone cream as well. She will need to establish herself with a primary care physician. Treatment Plan: [] Disposition: Discharge Impression: Chronic back pain, psoriasis This note was generated with [employer] dictation software. It may contain incorrect words, spelling, and punctuation that were not noted in review of the chart prior to signing ED Disposition - Plan for ED Patient: Chief Complaint: Back Referrals: Care Physician,No Primary [Primary Care Provider] -
--- NOTE | 2018-07-12 10:55 | ED.DCSUM_ITS ---
- ER Visit Summary Date of Service: 07/12/18 Chief Complaint: Chronic back pain, psoriasis History of Present Illness: The patient is a 67 F who presents with her chronic back pain symptoms. She takes 3 Percocet a day from pain management. However, she states that this does not help. She has spoke with her pain management doctor, Dr. Juarez about changing her regimen but he has not done this. She states that she cannot sleep at night and nothing helps. She also complains of itching in her legs. She has a history of psoriasis. She has tried triamcinolone cream from a neck band setter but she states that that does not help. Physical Examination: Vital signs reviewed. HEENT exam unremarkable. Heart is regular rate and rhythm without murmurs. Lungs are clear to auscultation. Abdomen is soft and nontender. Back exam is tender in the lumbar spine area. Extremities reveal no edema. Skin exam reveals psoriasis of the legs. Neurologic exam normal. Test Results: None performed Emergency Department Course and Treatment: Patient will be given a shot of Toradol. She requested either to Percocet or Dilaudid. However, I do not feel that giving this patient narcotics would be prudent at this time. I will give her prednisone as well. She will be given topical hydrocortisone cream as well. She will need to establish herself with a primary care physician. Treatment Plan: [] Disposition: Discharge Impression: Chronic back pain, psoriasis This note was generated with [employer] dictation software. It may contain incorrect words, spelling, and punctuation that were not noted in review of the chart prior to signing ED Disposition - Plan for ED Patient: Chief Complaint: Back Referrals: Care Physician,No Primary [Primary Care Provider] -
--- NOTE | 2018-07-12 10:55 | ED.DEP ---
ED Disposition - Plan for ED Patient: Disposition: Home or Assisted Living Chief Complaint: Back Instructions: ED Neck Back Pain General Prescriptions: predniSONE tablet 40 mg PO DAILY #8 tab Hydrocortisone 1% Crm [Hytone] 1 applic TOPICAL BID #1 tube Referrals: Care Physician,No Primary [Primary Care Provider] -
[2018-07-12] MEDS: predniSONE 20 MG Tablet 40 MG PO (11:00)
[2018-07-12] MEDS: Ketorolac 60 MG/2 ML Vial IM (11:01)
== END 2018-07-12 11:08 | disposition home or self-care (01) ==
LOC: ED 11:02
PROVIDERS: Emergency Provider Emergency Medicine
DX: M54.9 Dorsalgia, unspecified (principal); G89.29 Other chronic pain; L40.9 Psoriasis, unspecified; Z79.01 Long term (current) use of anticoagulants; Z79.52 Long term (current) use of systemic steroids; Z79.899 Other long term (current) drug therapy
CPT/HCPCS: 96372; 99283

== ENCOUNTER 2018-07-13 12:08 | Emergency (ER) | payer MEDICARE, SELFPAY ==
[2018-07-12 10:39] VITALS: BMI 34.9
[2018-07-13 12:09] VITALS: BP 123/84; PULSE 91; RESP 18; TEMP 36.9; O2SAT 96; BMI 34.9
--- NOTE | 2018-07-13 13:02 | ED.VISSUMM ---
- ER Visit Summary Date of Service: 07/13/18 Chief Complaint: chronic back pain History of Present Illness: The patient is a 67 F with history of chronic back pain from compression fractures, scoliosis and degenerative joint disease who is in pain management with Dr. Juarez, presents for continued chronic back pain. Patient has no change but states that the 3 Percocets a day and the injections she is getting in pain management are not adequate. She was seen yesterday in the emergency department for the same complaint and received Toradol, which she states did nothing for her. She denies any bowel or bladder incontinence or retention. She denies any weakness in her legs or inability to ambulate at her baseline. No other complaints other than looking for pain relief for her chronic back pain. Physical Examination: Patient is well-nourished well-developed, BMI of 35, sitting in a wheelchair. Afebrile and hemodynamically stable. Skin is warm and dry, no rash. Heart regular in rate and rhythm. No increased work of breathing. Moves all extremities. Test Results: [] Emergency Department Course and Treatment: Patient was offered and declined on opiate medication for her pain. I discussed with her that due to the opiate crisis, there are now [place] State loss in place that prevent prescriptions of opiate medications for chronic pain, especially since she is already in pain management and has a single prescriber of her Percocet. I explained to patient that it would be a violation of law for me to provide her with opiates. I again offered her nonopiate pain medication, and she declined. I offered to call Dr. Juarez to see if we could come up with a plan for better pain control for the patient, and she asked me not to call him. Patient has no red flag symptoms concerning for acute spinal cord injury or compression. Patient is to follow-up with Dr. Juarez and declined any intervention from me since I would not give her opiates. Patient was discharged home. Treatment Plan: [] Disposition: [] Impression: chronic back pain This note was generated with [employer] dictation software. It may contain incorrect words, spelling, and punctuation that were not noted in review of the chart prior to signing ED Disposition - Plan for ED Patient: Chief Complaint: Back Referrals: Care Physician,No Primary [Primary Care Provider] -
--- NOTE | 2018-07-13 13:06 | ED.DEP ---
ED Disposition - Plan for ED Patient: Chief Complaint: Back Instructions: ED Chronic Pain Management, ED Back Care Tips Referrals: Care Physician,No Primary [Primary Care Provider] - Kacy Juarez MD [STAFF PHYSICIAN] - As soon as possible
--- NOTE | 2018-07-13 13:06 | ED.RN ---
REGISTRATION ATTEMPTED TO REGISTER PATIENT, PATIENT REFUSED AND STATE I'M NOT SIGNING ANYTHING, I'M LEAVING. PT'S WHEELS PATIENT OUT OF DEPARTMENT.
== END 2018-07-13 13:12 | disposition home or self-care (01) ==
LOC: ED 13:10
PROVIDERS: Emergency Provider Emergency Medicine
DX: M54.9 Dorsalgia, unspecified (principal); G89.29 Other chronic pain; M41.9 Scoliosis, unspecified; E66.9 Obesity, unspecified; Z68.35 Body mass index [BMI] 35.0-35.9, adult; Z79.01 Long term (current) use of anticoagulants; Z79.52 Long term (current) use of systemic steroids; Z79.899 Other long term (current) drug therapy
CPT/HCPCS: 99282

== ENCOUNTER 2018-08-02 09:21 | Emergency (ER) | payer MEDICARE, SELFPAY ==
[2018-08-02 09:23] VITALS: BP 141/88; PULSE 81; RESP 17; TEMP 36.7; O2SAT 99; BMI 34.9
--- NOTE | 2018-08-02 09:41 | ED.DCSUM_ITS ---
- ER Visit Summary Date of Service: 08/02/18 Chief Complaint: Back pain History of Present Illness: Patient presents with wall pain. This is chronic she has Percocet from pain management but they are not working as well. She has no radiation to her legs she is able to ambulate. [facility] who are unwilling to do surgery on her herniated disks. No chest pain shortness of breath no abdominal pain. Pain is moderate to severe by most at times it is mild. She is in physical therapy Physical Examination: Otherwise unremarkable exam. Soft abdomen, there is lumbar tenderness, normal patellar reflexes Achilles reflexes are equal bilaterally. She has normal plantar flexion of both feet and are normal dorsiflexion of both great toes. Emergency Department Course and Treatment: We will give her 4 mg of morphine in the emergency department, then she is to follow-up with her pain management doctor. She had some itching to morphine about 20 years ago therefore I will add Benadryl. Disposition: Discharge stable condition Impression: Acute on chronic back This note was generated with [employer] dictation software. It may contain incorrect words, spelling, and punctuation that were not noted in review of the chart prior to signing ED Disposition - Plan for ED Patient: Chief Complaint: Back Referrals: Care Physician,No Primary [Primary Care Provider] -
--- NOTE | 2018-08-02 09:42 | ED.VISSUMM ---
- ER Visit Summary Date of Service: 08/02/18 Chief Complaint: [] History of Present Illness: The patient is a 67 F [] Physical Examination: [] Test Results: [] Emergency Department Course and Treatment: [] Treatment Plan: [] Disposition: [] Impression: [] This note was generated with W[employer] dictation software. It may contain incorrect words, spelling, and punctuation that were not noted in review of the chart prior to signing ED Disposition - Plan for ED Patient: Disposition: Home or Assisted Living Chief Complaint: Back Instructions: ED Neck Back Pain General Additional Instructions: Follow up with your pain doctor for further management
[2018-08-02] MEDS: Morphine 4 MG/ML Syringe IM (09:57)
[2018-08-02] MEDS: DiphenhydrAMINE 50 MG/ML Syringe 25 MG IM (09:58)
--- NOTE | 2018-08-02 10:23 | ED.RN ---
md aware of pt pain. no new orders given.
--- NOTE | 2018-08-02 10:33 | ED.RN ---
SPOKE WITH PT ABOUT [facility]. GAVE PT A PHONE NUMBER TO CALL. PT SAID THANK YOU IN TH END, BUT VERBALLY INSISTS ON THE NEED FOR PAIN MEDICATIONS.
== END 2018-08-02 10:32 | disposition home or self-care (01) ==
LOC: ED 09:51
PROVIDERS: Emergency Provider Emergency Medicine
DX: M54.9 Dorsalgia, unspecified (principal); G89.29 Other chronic pain
CPT/HCPCS: 96372; 99282

== ENCOUNTER → 2018-08-17 12:03 | Outpatient (CLI) | payer MEDICARE, SELFPAY ==
[2018-08-02 09:23] VITALS: BMI 34.9
[2018-08-17 14:03] LABS: Amphetamine Urine VISTA NEGATIVE (<1000 ng/mL); Barbiturate Urine VISTA NEGATIVE (< 200 ng/mL); Benzodiazepine Urine VISTA NEGATIVE (< 200 ng/mL); Cocaine Urine VISTA NEGATIVE (< 300 ng/mL); Ecstacy Urine VISTA NEGATIVE (< 500 ng/mL); Methadone Urine VISTA NEGATIVE (< 300 ng/mL); PCP Urine VISTA NEGATIVE (< 25 ng/mL); THC Urine VISTA NEGATIVE (< 50 ng/mL); Vista UDS pH Range 6
== END ==
PROVIDERS: Referring Provider Anesthesiology Pain Medicine; Visit Provider Anesthesiology Pain Medicine
DX: F11.20 Opioid dependence, uncomplicated (principal)
CPT/HCPCS: 80307

== ENCOUNTER 2018-08-30 10:01 | Emergency (ER) | payer MEDICARE, SELFPAY ==
--- NOTE | 2018-08-30 15:34 | ED.DCSUM_ITS ---
- ER Visit Summary Date of Service: 08/30/18 Chief Complaint: Back pain History of Present Illness: The patient is a [address] Juarez. She reports she has chronic back pain that is gotten worse over past 10 years. She describes a sharp, burning, throbbing pain that is 10 out of 10 severity. Is worsened by standing up. She is taking Percocet without relief. States that it radiates down the back of both legs to her feet. She denies any numbness or weakness in her legs. No problems with her bowels or bladder. No groin numbness. Patient reports that she was given a prescription for Percocet on August 17. This was supposed to last until September 16. However, she ran out yesterday. States that she had an MRI 2 months ago that showed herniated disks, compression fractures, degenerative disc disease, and scoliosis. States that she has been to 3 surgeons that have told her that this is nonoperative. The last 1 of these was at [facility] 2 weeks ago. Patient denies any fever or chills. No sore throat or cough. No chest pain or shortness of breath. Physical Examination: Vitals: Stable. Afebrile. General: A&O x 3. NAD. Cardiovascular exam: Regular rate and rhythm, no murmur, rub or gallop. Respiratory exam: Clear to auscultation bilaterally. No wheezes or stridor. Abdominal exam: Soft, nontender, nondistended, normal bowel sounds. No peritoneal signs. Back: Diffuse moderate tenderness to palpation over the lumbar spine and the paraspinous musculature in the lumbar region. No point tenderness. Negative straight leg bilaterally. 5/5 DF, PF, EHL bilaterally. Normal sensation to light touch throughout. Extremity: No clubbing, cyanosis, or edema. Emergency Department Course and Treatment: An [facility] report was obtained which does confirm that she got a prescription for Percocet August 17 and is supposed to still have this. Treatment Plan: Patient was discussed with Dr. Juarez. She is given 2 Percocet here. I am not going to give her a prescription for Percocet for home. She is instructed to follow-up with him within the next 3-5 days for another exam. I did discuss with her that she will likely go through withdrawal as she is run out of her Percocet early. She is given Zofran to help with the nausea associated with this. Return to the emergency department for any worsening symptoms. Disposition: To home in improved and stable condition. Impression: 1. Chronic back pain in pain management. This note was generated with [employer] dictation software. It may contain incorrect words, spelling, and punctuation that were not noted in review of the chart prior to signing ED Disposition - Plan for ED Patient: Referrals: Care Physician,No Primary [Primary Care Provider] -
== END 2018-08-30 11:20 | disposition home or self-care (01) ==
LOC: ED 11:21
PROVIDERS: Emergency Provider Emergency Medicine
DX: G89.29 Other chronic pain (principal); M54.9 Dorsalgia, unspecified; I10 Essential (primary) hypertension; L30.9 Dermatitis, unspecified; Z86.711 Personal history of pulmonary embolism; E03.9 Hypothyroidism, unspecified; F31.9 Bipolar disorder, unspecified; R19.7 Diarrhea, unspecified
CPT/HCPCS: 99283

== ENCOUNTER 2018-09-27 09:45 | Emergency (ER) | payer MEDICARE, SELFPAY ==
[2018-09-27 09:47] VITALS: BP 160/72; PULSE 104; RESP 16; TEMP 36.4; O2SAT 97; BMI 38.4
--- NOTE | 2018-09-27 10:01 | ED.VISSUMM ---
- ER Visit Summary Date of Service: 09/27/18 Chief Complaint: Acute on chronic back pain History of Present Illness: The patient is a 68 F history of chronic back pain with known compression fractures and degenerative disc disease. History of scoliosis. Patient states she seen multiple neurosurgeon and spine surgeons all of which have encouraged her not to have back surgery that they do not think would be a long-term fix. She is chronically on Percocet. She does not feel like it is controlling the pain. She denies any fever. She denies any acute injury. She denies any bowel or bladder incontinence. The pain is no different just her chronic pain. She is requesting something for pain. Physical Examination: Well-appearing older female in a wheelchair with her significant other. Vital signs are stable. She is afebrile. She is in no acute distress. H EENT exam unremarkable. Neck nontender. Lungs clear to auscultation bilaterally. Heart regular rhythm no murmur. Abdomen is soft and nontender. Normal bowel sounds peritoneal signs. No pulsatile mass. She is moving all 4 extremities. They are neurovascularly intact. She has normal motor strength to both lower extremities. There is no cauda equina or saddle anesthesia. Dorsi and plantar flexion is intact. Normal medial thigh sensation. She is able to stand and get out of the wheelchair without significant difficulty. Her back exam is unremarkable. There is no redness or warmth. No signs of trauma. Neurologically she is awake alert with no focal motor or sensory deficits. Test Results: None Emergency Department Course and Treatment: Patient has acute on chronic back pain. She will be given 2 Percocet here. She also requested that I write her for some prednisone for her psoriasis of the skin on her legs. She does have dry skin on her lower extremities. There is no cellulitis. Treatment Plan: Follow-up with a local primary care physician. Disposition: Discharge Impression: Acute on chronic back pain with history of degenerative disc disease and compression fractures and scoliosis Psoriasis This note was generated with [employer] dictation software. It may contain incorrect words, spelling, and punctuation that were not noted in review of the chart prior to signing ED Disposition - Plan for ED Patient: Referrals: Care Physician,No Primary [Primary Care Provider] -
[2018-09-27] MEDS: oxyCODONE 5 MG Tablet 10 MG PO (10:03)
--- NOTE | 2018-09-27 10:04 | ED.DCSUM_ITS ---
- ER Visit Summary Date of Service: 09/27/18 Chief Complaint: Acute on chronic back pain History of Present Illness: The patient is a 68 F history of chronic back pain with known compression fractures and degenerative disc disease. History of scoliosis. Patient states she seen multiple neurosurgeon and spine surgeons all of which have encouraged her not to have back surgery that they do not think would be a long-term fix. She is chronically on Percocet. She does not feel like it is controlling the pain. She denies any fever. She denies any acute injury. She denies any bowel or bladder incontinence. The pain is no different just her chronic pain. She is requesting something for pain. Physical Examination: Well-appearing older female in a wheelchair with her significant other. Vital signs are stable. She is afebrile. She is in no acute distress. H EENT exam unremarkable. Neck nontender. Lungs clear to auscultation bilaterally. Heart regular rhythm no murmur. Abdomen is soft and nontender. Normal bowel sounds peritoneal signs. No pulsatile mass. She is moving all 4 extremities. They are neurovascularly intact. She has normal motor strength to both lower extremities. There is no cauda equina or saddle anesthesia. Dorsi and plantar flexion is intact. Normal medial thigh sensation. She is able to stand and get out of the wheelchair without significant difficulty. Her back exam is unremarkable. There is no redness or warmth. No signs of trauma. Neurologically she is awake alert with no focal motor or sensory deficits. Test Results: None Emergency Department Course and Treatment: Patient has acute on chronic back pain. She will be given 2 Percocet here. She also requested that I write her for some prednisone for her psoriasis of the skin on her legs. She does have d ry skin on her lower extremities. There is no cellulitis. Treatment Plan: Follow-up with a local primary care physician. Disposition: Discharge Impression: Acute on chronic back pain with history of degenerative disc disease and compression fractures and scoliosis Psoriasis This note was generated with [employer] dictation software. It may contain incorrect words, spelling, and punctuation that were not noted in review of the chart prior to signing ED Disposition - Plan for ED Patient: Referrals: Care Physician,No Primary [Primary Care Provider] -
--- NOTE | 2018-09-27 10:04 | ED.DEP ---
ED Disposition - Plan for ED Patient: Disposition: Home or Assisted Living Instructions: ED Chronic Pain Management Prescriptions: Prednisone [Deltasone] 40 mg PO DAILY 10 Days tab Referrals: Joce Rey MD [STAFF PHYSICIAN] - As Needed Additional Instructions: Prednisone daily for the next 10 days. Follow-up with pain management for your back and a local primary care physician.
== END 2018-09-27 10:13 | disposition home or self-care (01) ==
PROVIDERS: Emergency Provider Emergency Medicine
DX: M54.9 Dorsalgia, unspecified (principal); G89.29 Other chronic pain; M41.9 Scoliosis, unspecified; L40.9 Psoriasis, unspecified; I10 Essential (primary) hypertension; R19.7 Diarrhea, unspecified; Z79.01 Long term (current) use of anticoagulants; Z79.899 Other long term (current) drug therapy
CPT/HCPCS: 99283

== ENCOUNTER 2018-10-02 18:45 | Emergency (ER) | payer MEDICARE, SELFPAY ==
[2018-10-02 18:46] VITALS: BP 118/66; PULSE 95; RESP 24; TEMP 36.7; O2SAT 95; BMI 38.4
--- NOTE | 2018-10-02 19:12 | ED.DCSUM_ITS ---
- ER Visit Summary Date of Service: 10/02/18 Chief Complaint: Back pain History of Present Illness: The patient is a [address] Juarez. 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 States that 2 days ago she missed a call from Dr. Lund saying that she was supposed to come and have a pill count because of that she has been fired. Patient does readily admit that she was supposed to have enough Percocet for the next 8 days and is now out. She reports her last Percocet was 2 days ago. Patient reports that she has chronic back pain that worsened 3 months ago when she changed pain management. She describes it as an aching pain that is 10 out of 10 severity. Is worsened by movement or standing. States it radiates down the back of both legs. This is chronic and unchanged. She denies any problems with her bowels or her bladder. No groin numbness. No recent trauma. No fall, MVA, or change in activity. Physical Examination: Vitals: Stable. Afebrile. General: A&O x 3. NAD. Cardiovascular exam: Regular rate and rhythm, no murmur, rub or gallop. Respiratory exam: Clear to auscultation bilaterally. No wheezes or stridor. Abdominal exam: Soft, nontender, nondistended, normal bowel sounds. No peritoneal signs. Back: Diffuse moderate tenderness to palpation over the lumbar spine and the paraspinous musculature in the lumbar region. No point tenderness. Negative straight leg bilaterally. 5/5 DF, PF, EHL bilaterally. Normal sensation to light touch throughout. Extremity: No clubbing, cyanosis, or edema. Emergency Department Course and Treatment: I had a prolonged discussion with the patient this is not an appropriate use of the emergency department. 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 That if she is going to get any pain medications that this needs to be through her primary care physician. She was given 2 oxycodone p.o. here. Treatment Plan: Patient was given the name of Dr. Carrera as a referral to another house painting instructor. She was also discussed with case management. I told her that she will not be treated with any opiate-based medications in the emergency department for chronic pain from this point forward. Return to the emergency department for any worsening symptoms. Disposition: To home in improved and stable condition. Impression: 1. Chronic back pain. This note was generated with [employer] software. It may contain incorrect words, spelling, and punctuation that were not noted in review of the chart prior to signing ED Disposition - Plan for ED Patient: Disposition: Home or Assisted Living Instructions: ED Chronic Pain Management Referrals: Hazel Carrera, DO [STAFF PHYSICIAN] - As soon as possible Doctor,Your [STAFF PHYSICIAN] - As soon as possible
--- NOTE | 2018-10-02 19:24 | CM.ED ---
Social Work Note Referral from physician for care plan as pt is med seeking, has been fired from multiple pain management clinics and he explained she will no longer receive narcotics from this ED for chronic pain issues or non verifiable pain. Face to face with pt and spouse. Introduced self and role at [facility]. Pt reports to live with her spouse in a split level home. Reports some difficulty with stairs, but that the most she has to ambulate up is 4 and there is a handrail. Denies use of DME. Pt reports that she is no longer with any additional pain management clinics and the physician was going to give her recommendations for additional services. Reiterate that at this time she will no longer get pain medications from our facility for chronic pain issues or non verifiable pain and that these concerns need to be addressed by a PCP or a custom motorcycle painter. Pt reports to have Dr. George as her PCP. Encourage her to setup an appointment. She does report a hx of depression and anxiety and denies association with a counselor at this time. Educate to the benefits of counseling and pt states I do not see how that is going to help my pain. Again explain that there are many associations between mental health and physical health. Pt continues to decline mental health services at this time. She is on Zoloft through her PCP. Pt denies further needs at this time and inform that RN will be in to discharge. PLAN: EDCP to be developed. Physician running [facility] report and pt to discharge home with support of spouse. Griselda Orozco, DROP HAMMER SETTER UP, ZEN
[2018-10-02] MEDS: Acetaminophen 325 MG Tablet 1000 MG PO (19:26)
[2018-10-02] MEDS: oxyCODONE 5 MG Tablet 10 MG PO (19:26)
[2018-10-02 19:32] VITALS: O2SAT 96
== END 2018-10-02 19:32 | disposition home or self-care (01) ==
LOC: ED 19:25
PROVIDERS: Emergency Provider Emergency Medicine
DX: M54.9 Dorsalgia, unspecified (principal); G89.29 Other chronic pain; I10 Essential (primary) hypertension; K52.9 Noninfective gastroenteritis and colitis, unspecified; Z86.711 Personal history of pulmonary embolism; Z79.01 Long term (current) use of anticoagulants; Z79.899 Other long term (current) drug therapy
CPT/HCPCS: 99283

== ENCOUNTER 2018-10-17 18:39 | Emergency (ER) | payer MEDICARE, SELFPAY ==
[2018-10-17 18:39] VITALS: BP 141/95; PULSE 95; RESP 20; TEMP 36.1; BMI 38.5
--- NOTE | 2018-10-17 18:57 | ED.VISSUMM ---
- ER Visit Summary Date of Service: 10/17/18 Chief Complaint: Back pain History of Present Illness: The patient is a 68 F who presents with chronic back pain. Patient has a long-standing history of this. She tells me today that she was dismissed from pain management and does not have any pain pills left. She says that Tylenol and other medications do not help. She denies any new pains. Denies any new symptoms. Denies any new injuries. Physical Examination: Patient is afebrile and vital signs are unremarkable. She is alert and oriented. Depressed mood. Heart regular. No respiratory distress. Moves all extremities. Test Results: None performed Emergency Department Course and Treatment: I have seen this patient multiple times at this emergency department for back pain. I have seen her at multiple other emergency departments as well, as recently as yesterday for back pain. Patient told me yesterday that her pain medication dosage was decreased. When I spoke with her today. She said she was dismissed from pain management for missing appointments and for an incorrect pill count. I am concerned about her potential deceptive behavior. I am concerned that she is going to multiple emergency departments for pain and that she is not compliant with pain management. She declined anything else for treatment and just wanted an opioid shot. I will advised her to follow-up with pain management and/or her primary care doctor for chronic pain issues. She should return for any new issues, injuries, etc. peer Treatment Plan: As above Disposition: Discharge Impression: 1. Chronic back pain This note was generated with [employer] dictation software. It may contain incorrect words, spelling, and punctuation that were not noted in review of the chart prior to signing ED Disposition - Plan for ED Patient: Instructions: ED Spasm Back No Trauma Additional Instructions: follow up with your pain doctor
== END 2018-10-17 19:13 | disposition home or self-care (01) ==
LOC: ED 19:06
PROVIDERS: Emergency Provider Emergency Medicine
DX: M54.9 Dorsalgia, unspecified (principal); G89.29 Other chronic pain; I10 Essential (primary) hypertension; Z79.01 Long term (current) use of anticoagulants; Z79.899 Other long term (current) drug therapy; Z87.891 Personal history of nicotine dependence
CPT/HCPCS: 99282

== ENCOUNTER 2018-11-24 16:34 | Emergency (ER) | payer MEDICARE, SELFPAY ==
[2018-11-24 16:34] VITALS: BP 151/72; PULSE 95; RESP 16; TEMP 36.1; O2SAT 100; BMI 37.6
--- NOTE | 2018-11-24 16:54 | ED.RN ---
WE ARE NIESHA GOING TO GO TO [place] TO BE SEEN DOWN THERE
== END 2018-11-24 16:54 | disposition left against medical advice (07) ==
LOC: ED 16:52
PROVIDERS: Emergency Provider Emergency Medicine
DX: M54.9 Dorsalgia, unspecified (principal)

== ENCOUNTER 2019-04-22 12:13 | Emergency (ER) | payer MEDICARE, SELFPAY ==
[2019-04-22 12:14] VITALS: BP 148/102; PULSE 82; RESP 17; TEMP 36.7; O2SAT 100; BMI 33.6
--- NOTE | 2019-04-22 15:25 | ED.VISSUMM ---
- ER Visit Summary Date of Service: 04/22/19 Chief Complaint: Back pain History of Present Illness: The patient is a 68 F who presents with back pain that has been getting worse over the past month. Patient states she was doing a lot of lifting from moving recently. Patient states her pain is worse with bending. Patient describes the pain as aching, burning, and throbbing. Patient states the pain is over the lower lumbar and sacral areas. Patient states the pain radiates down both lower extremities. Patient does admit to some dysuria but denies any urinary or stool incontinence. Patient states she was recently dismissed from Dr. Juarez's practice because she lost her prescription for her Percocet. Patient states she also recently completed a course of Keflex for urinary tract infection. Physical Examination: Vital signs are stable. Patient is afebrile. Patient is in no acute distress. Oral mucosa is pink and moist. Neck is supple. Trachea is midline. There is no JVD noted. Heart was regular rate and rhythm. Lungs are clear and equal bilaterally. Abdomen is soft and nontender. Cranial nerves II through XII are intact. Strength is 5/5 bilaterally in the upper and lower extremities. Deep tendon reflexes are 2+/4 bilaterally upper and lower extremities. There are no sensory deficits noted. There is mild erythema and warmth over the left great toe. There is no discharge or drainage. There is no abscess formation. There is also an erythematous rash of the lateral aspect of the right leg. There is some mild serous drainage. Test Results: Urinalysis was obtained. There were 50-100 white blood cells with leukocyte esterase of 500. There were 5-10 epithelial cells and occult blood of 25. Emergency Department Course and Treatment: Patient was given a dose of oxycodone here. Patient was given a prescription for a short course of Percocet. Patient was advised that this would be the only prescription she would be prescribed here in the emergency department for pain medicine. Patient was instructed to follow-up with her primary care physician for further management of her pain since she no longer sees pain management. Patient was given a prescription for Bactrim which should cover her cellulitis and urinary tract infection. Patient was instructed to follow-up with her primary care physician in 5 to 7 days. Patient understood and was agreeable with the plan. All questions were answered. Disposition: Discharge home Impression: 1. Acute exacerbation of chronic low back pain 2. Cellulitis left great toe 3. Urinary tract infection This note was generated with [employer] dictation software. It may contain incorrect words, spelling, and punctuation that were not noted in review of the chart prior to signing ED Disposition - Plan for ED Patient: Disposition: Home or Assisted Living Diagnosis: Acute exacerbation of chronic low back pain, Cellulitis of great toe, left, Urinary tract infection Instructions: BACK PAIN (Acute or Chronic), Bladder Infection, Female (Adult) Prescriptions: Smz/Tmp Ds [Bactrim Ds] 1 tab PO BID #14 tab Prescription Printed Oxycodone HCl/Acetaminophen [Percocet 5/325] 1 tab PO Q6H PRN PRN 3 Days #12 tab PRN Reason: Pain Prescription Printed Referrals: Town Doctor,Out of [NON-STAFF] - 1-2 Days if not improving
[2019-04-22] MEDS: oxyCODONE 5 MG Tablet 10 MG PO (15:35)
[2019-04-22 16:07] LABS: Bacteria 0 SEEN /hpf (None Seen)
[2019-04-22 16:19] LABS: Color, Urine Yellow (Yellow); Glucose, Dipstick Normal (Normal); Ketone-Dipstick 15 mg/dl (Negative); Leukocyte Esterase-Dipstick 500 /ul (Negative); Nitrite-Dipstick Negative (Negative); Occult Blood-Urine 25 /ul (Negative); Protein-Dipstick 30 mg/dl (Negative); Specific Gravity, Urine 1.025 (1.002-1.030); Urine Clarity Sl. Cloudy (Clear); Urine Urobilinogen 4 mg/dl (Normal)
[2019-04-22 16:21] LABS: Urine Bilirubin Dipstick 1 mg/dL (Negative)
[2019-04-22 16:52] LABS: White Blood Cells 50-100 SEEN /hpf (0-5)
[2019-04-22 16:53] LABS: Mucous, Urine 1+ /hpf (<or=2+); Red Blood Cells-Urine 0-5 SEEN /hpf (0-5); Squamous Epithelial Cells - UA 5-10 SEEN /hpf (5-10)
[2019-04-22 17:21] VITALS: BP 146/71; PULSE 88; RESP 16; O2SAT 94
== END 2019-04-22 17:36 | disposition home or self-care (01) ==
LOC: ED 15:37
PROVIDERS: Emergency Provider Emergency Medicine
DX: M54.5 Low back pain (principal); G89.29 Other chronic pain; L03.032 Cellulitis of left toe; N39.0 Urinary tract infection, site not specified; I10 Essential (primary) hypertension; F32.9 Major depressive disorder, single episode, unspecified; F41.9 Anxiety disorder, unspecified; Z79.01 Long term (current) use of anticoagulants; Z79.899 Other long term (current) drug therapy; Z87.891 Personal history of nicotine dependence
CPT/HCPCS: 81001; 99283

== ENCOUNTER 2019-04-26 09:45 | Emergency (ER) | payer MEDICARE, SELFPAY ==
[2019-04-26 09:46] VITALS: BP 187/90; PULSE 77; RESP 17; TEMP 36.7; O2SAT 97; BMI 33.6
--- NOTE | 2019-04-26 10:09 | ED.VIS.BACK ---
History of Present Illness Chief Complaint: Back Informant: Patient, Significant Other Onset: Month(s) Injury: - - Recently moved from a larger home to a sick level home. She states pain is worse. She was seen April 23 and given 1 Percocet tablet. Timing: Continuous Quality: Dull, Aching Location: Lumbar, Buttock, Right Leg, Left Leg Current Severity: Moderate Maximum Severity: Severe Worsened by: improves with: - - Very vague and unable to give specifics Relieved by: - - Nothing Associated Symptoms: - - Denies bowel or bladder dysfunction. She denies saddle paresthesia or anesthesia. She reports low back pain and makes a circular motion around her sacrum. She also makes a circular motion around her right and left buttocks and right and left thigh. Narrative: Patient is a 60-year-old woman who has history of degenerative disc disease, herniated disc, prior compression fracture who has been seen by numerous spine surgeons and informed that there is nothing surgical that will help. She was seen by Dr. Juarez who discharged her from his practice. She states that had to do something with her misplacing/losing her medication. Her last dose of Percocet was x1. Her last dose prior to were several days prior to that. She does not give symptoms of opiate withdrawal. She denies fever, chills or night sweats. She denies foot drop. She denied weakness in her thigh muscles going up or down steps. She denies saddle paresthesia or anesthesia. Prior similar symptoms: Yes, With Prior Back Pain Recent Illness/Hospitalization: Yes - April 23 - Past Medical History (1) Degenerative disc disease, lumbar Status: Acute (2) History of herniated lumbar disc Status: Acute (3) History of compression fracture of spine Status: Acute Past Medical History - Allergies and Home Meds Allergies/Adverse Reactions: Allergies morphine Adverse Reaction (Verified 04/26/19 09:45) Itching Primary Care Physician: Care Physician,No Primary [Primary Care Provider] - Prior records reviewed: Yes - ER visits for back pain Lives: Spouse/ Significant Other Smoking Status: Former smoker Alcohol: None Drugs: None Review of Systems General: Denies: Chills, Fever, Malaise, Subjective, Sweats, Weight loss Cardiovascular: Denies: Chest pain, Palpitations Respiratory: Denies: Dyspnea, Cough, Dyspnea on exertion Gastrointestinal: Denies: Abdominal pain, Nausea, Vomiting, Diarrhea, Melena, Hematochezia Genitourinary: Denies: Dysuria, Hematuria, Frequency Musculoskeletal: Reports: Back pain. Denies: Myalgias, Arthralgias, Neck pain, Swelling, Extremity Pain, -, - Skin: Denies: Rash, Wounds Neurological: Denies: Headache, Weakness, Parasthesia, Numbness Physical Exam Vital Signs/Narrative: Vital Signs Temp Pulse Resp BP Pulse Ox 04/26/19 09:46 98.1 F 77 17 187/90 H 97 Inital Vital Signs reviewed: Yes General: Well nourished, Well developed, Obese, Unkempt Head: Normocephalic, Atraumatic Eyes: Perrl, EOMI. Negative for: Pale conjunctiva, Scleral icterus ENT: Moist mucous membranes, No rhinorrhea Neck: Supple, Nontender Cardiovascular: Regular rate, Regular rhythm, No murmurs, Normal S1, Normal S2 Respiratory: No distress, CTA bilaterally, Chest nontender Abdomen: Soft, Nontender, Nondistended, Normal bowel sounds, No masses Back: Normal Inspection, Nontender, Negative SLR - Right, Negative SLR - Left. Negative for: Spinal tenderness, CVA tenderness Extremeties: Nontender, No edema, Strong Pulses, Symmetric. Negative for: Tenderness, Edema Skin: Normal color, No rash, No Trauma. Negative for: Cyanosis, Diaphoresis, Jaundice Neuro: Alert, Oriented, Normal Strength, Normal Sensation, Normal DTR, Normal Gait, Normal Reflexes - 1+ patella and ankle Reflexes: Right Patellar, Right Achilles, Left Patellar, Left Achilles. Negative for: Right Clonus, Right Babinski, Left Clonus, Left Babinski Psychological: Depressed Diagnostic/Tx/Re-eval - Medical Decision Making History of numerous ER visits for back pain and the fact that she was discharged from pain management within the past month and has not had any opiates for several days there is no concern for withdrawal. She presently manifest no symptoms of withdrawal. Her examination reveals no neurologic or vascular abnormality. Patient was instructed to follow-up with her providers at [facility]. She informed that they will not prescribe pain medicine. I informed her they will not prescribe opiate analgesics. They will prescribe anti-inflammatories. Patient has exacerbation of chronic back pain secondary to degenerative disc disease and reported history of herniated disc. ED Disposition - Plan for ED Patient: Disposition: Home or Assisted Living Diagnosis: Bilateral low back pain without sciatica Instructions: BACK PAIN (Acute or Chronic) Referrals: Care Physician,No Primary [Primary Care Provider] - Additional Instructions: Follow-up with your provider at [facility] located in [place]. If you are unable to urinate, have loss of bowel control or weakness going up or down steps or unable to walk because of acute weakness return to the emergency department.
== END 2019-04-26 10:23 | disposition home or self-care (01) ==
PROVIDERS: Emergency Provider Emergency Medicine
DX: M54.5 Low back pain (principal); G89.29 Other chronic pain; M51.26 Other intervertebral disc displacement, lumbar region; M51.36 Other intervertebral disc degeneration, lumbar region; Z79.01 Long term (current) use of anticoagulants; Z79.899 Other long term (current) drug therapy; Z87.891 Personal history of nicotine dependence
CPT/HCPCS: 99282

== ENCOUNTER 2019-05-02 04:03 | Emergency (ER) | payer MEDICARE, SELFPAY ==
[2019-05-02 04:03] VITALS: BP 194/103; PULSE 72; RESP 18; TEMP 36.6; O2SAT 98; BMI 32.8
--- NOTE | 2019-05-02 04:23 | RAD_ITS ---
STUDY: X-RAY - PELVIS REASON FOR EXAM: Female, 68 years old. Fall. Pelvic pain TECHNIQUE: One view of the pelvis was obtained. COMPARISON: None. FINDINGS: There is a non-specific bowel gas pattern. Normal visualized soft tissue structures. There is narrowing with cortical sclerosis and osteophyte formation of the sacroiliac joint consistent with degenerative osteoarthritic changes. Normal visualized bilateral superior and inferior pubic rami. Normal pubic symphysis. Normal ischial tuberosities. There are osteoarthritic changes of the right femoral head with marginal osteophyte formation. Normal right acetabulum. Normal right hip joint. There are calcifications in the hyaline cartilage suggesting chondrocalcinosis. There are osteoarthritic changes of the left femoral head with marginal osteophyte formation. Normal left acetabulum. Normal left hip joint. There are calcifications in the hyaline cartilage suggesting chondrocalcinosis. RAD/Pelvis 1 or 2 Views IMPRESSION: Degenerative changes of the pelvis. Electronically Signed: Mary Ko, at 4:50 EDT Tel , Service support ,
--- NOTE | 2019-05-02 04:24 | ED.VIS.GEN ---
History of Present Illness Chief Complaint: Back Detail of Chief Complaint: Acute on chronic back pain status post fall Informant: Patient Onset: Yesterday Current Severity: Moderate Maximum Severity: Moderate Narrative: Patient has a history of chronic back pain. She has had increased back pain recently as she has been moving. She was seen here in the ER on both the and the with complaints of back pain. She reported that time that she been dropped from her pain management physician because she had lost or misplaced her Percocet prescription. She states her primary care through [facility] in [place] does not do pain. They apparently gave her one phone number for another pain management physician that she can check with. She states she was coming out of her apartment yesterday when she tripped and fell, landing on her hip. She now has increased pain over the sacrum and tailbone with radiation of pain to the groin. She has no bowel or bladder problems. Past Medical History - Allergies and Home Meds Allergies/Adverse Reactions: Allergies morphine Adverse Reaction (Verified 04/26/19 09:45) Itching Primary Care Physician: Care Physician,No Primary [Primary Care Provider] - Prior records reviewed: Yes Past Medical History: - - Reviewed Lives: Alone Smoking Status: Former smoker Review of Systems General: Denies: Chills, Fever Eyes: Denies: Visual changes - bilaterally ENT: Denies: Bilateral ear pain Cardiovascular: Denies: Chest pain Respiratory: Denies: Dyspnea, Cough Gastrointestinal: Denies: Abdominal pain, Nausea, Vomiting, Diarrhea Musculoskeletal: Reports: Back pain, Extremity Pain - Radiation to groin Skin: Denies: Rash Neurological: Denies: Headache, Parasthesia, Numbness Hematologic: Denies: Easy bruising Allergy: Denies: Uticaria Physical Exam Vital Signs/Narrative: Vital Signs Temp Pulse Resp BP Pulse Ox 05/02/19 04:03 98 F 72 18 194/103 H 98 Inital Vital Signs reviewed: Yes General: Well nourished, Well developed ENT: Moist mucous membranes Neck: Supple Cardiovascular: Regular rate, Regular rhythm Respiratory: No distress, CTA bilaterally Abdomen: Soft, Nontender Back: - - No tenderness over the thoracic or lumbar spine. No tenderness in the lumbar paraspinals. She has reproducible tenderness of the lower sacrum and coccyx. Extremities: Nontender Skin: Normal color Neurological: Alert, Oriented x3, Normal Strength, Normal Sensation Psychological: Normal affect Diagnostic/Tx/Re-eval Impressions Pelvis X-Ray 05/02/19 04:23 IMPRESSION: Degenerative changes of the pelvis. Electronically Signed: Mary Ko, at 4:50 EDT Tel , Service support , 05/02/19 04:23 Pelvis 1 or 2 Views [RAD] Stat - Medical Decision Making Patient was given 1 tab of Percocet here while awaiting x-rays in light of having a new fall. X-rays are unremarkable. As advised by nursing staff that when arriving to the room patient insisted on having a warm blanket before she would get in the bed. She then wanted to know who the physician on duty was and asked for description. I reviewed her notes from her last 2 visits, both occurring within the last 10 days. On the it is well documented that she would receive a prescription for a short course of Percocet on that visit and would not receive any further opioids from this emergency department for her chronic pain. I advised the patient that I will not write her a prescription for Percocet at this time. She asked me multiple times if she could have a second have a Percocet while here. I declined. I will give her phone number for another pain management group in [facility] to see if she can establish care with them. ED Disposition - Plan for ED Patient: Disposition: Home or Assisted Living Diagnosis: Back pain Instructions: BACK AND NECK PAIN, General Referrals: Joce Rogers [NON-STAFF] - As soon as possible
[2019-05-02] MEDS: oxyCODONE 5 MG Tablet PO (04:28)
[2019-05-02] MEDS: Acetaminophen 325 MG Tablet PO (04:28)
[2019-05-02 05:15] VITALS: RESP 18
== END 2019-05-02 05:20 | disposition home or self-care (01) ==
PROVIDERS: Emergency Provider Emergency Medicine
DX: M54.5 Low back pain (principal); G89.29 Other chronic pain; W01.0XXA Fall on same level from slipping, tripping and stumbling without subsequent striking against object, initial encounter; Y93.9 Activity, unspecified; Y92.9 Unspecified place or not applicable; Z87.891 Personal history of nicotine dependence
CPT/HCPCS: 72170; 99283

== ENCOUNTER 2019-05-11 19:37 | Emergency (ER) | payer MEDICARE, SELFPAY ==
[2019-05-11 19:38] VITALS: BP 165/100; PULSE 88; RESP 14; TEMP 37.1; O2SAT 97; BMI 71.6
--- NOTE | 2019-05-11 20:03 | ED.VISSUMM ---
- ER Visit Summary Date of Service: 05/11/19 Chief Complaint: Back pain History of Present Illness: The patient is a 68 F who presents the emergency room with back pain. She states she has chronic back pain due to scoliosis chronic disc disease etc. She was in pain management was dismissed after losing her medication. She tells me the of last month after moving she sustained a low back injury exacerbating her chronic tailbone pain. She was seen in the emergency department twice since then and each time was told that the emergency department cannot provide her narcotics. She is specifically asking for Percocet. No acute neurologic deficits are noted by the patient. No fevers. She last had any type of back injections approximately 3 months ago. Today she notes her bilateral sciatica is flaring. Physical Examination: Afebrile vital signs stable Gen: Well-nourished well-developed obese Head: Normocephalic atraumatic Eyes: Perrl EOMI ENT: TMs clear no rhinorrhea moist mucous membranes Neck: Supple no lymphadenopathy no JVD nontender CVS: Regular rate rhythm no murmurs normal S1-S2 Respiratory: No distress clear to auscultation bilaterally chest nontender Abdomen: Soft nontender nondistended normal bowel sounds no masses Back: Patient reports tenderness to palpation over the bilateral buttock and lower sacral region. There are no rashes erythema or fluctuance to suggest an abscess. Extremity: Nontender no edema Skin: Normal color no rash Neuro: alert orientated ?3 CN II-XII intact normal strength sensation reflexes Psych: Normal affect normal mood Emergency Department Course and Treatment: I explained to the patient that the emergency department cannot be the place that she comes to just get 1 or 2 Percocets whenever her pain flares up. It is not with the emergency department should be used for. Patient declines anything that is nonnarcotic stating that they do not work for her. I informed the patient that on that unfortunately there is nothing else I can do for her as this appears to be a chronic issue. I provided the patient multiple reasons as to why the emergency department is not to handle chronic pain issues. Impression: 1. Chronic back pain and sciatica This note was generated with [employer] software. It may contain incorrect words, spelling, and punctuation that were not noted in review of the chart prior to signing ED Disposition - Plan for ED Patient: Disposition: Home or Assisted Living Instructions: ED Chronic Pain Additional Instructions: I strongly recommend you follow-up with your family doctor and discuss physical therapy/stretching for your back. As discussed this visit and your 2 prior visits the emergency department will not be providing narcotics for your chronic pain as a back-up to you being dismissed from your pain management clinic.
[2019-05-11 20:10] VITALS: RESP 18
--- NOTE | 2019-05-11 20:11 | ED.RN ---
PT INSISTED ON LEAVING. ASSISTED PT WITH WHEELCHAIR. ASKED PT IF SHE WANTED TO WAITING FOR HER DISCHARGE INFORMATION. PT STATES NO, I AM READY TO LEAVE. PRIMARY NURSE MADE AWARE.
--- NOTE | 2019-06-18 17:02 | CM.ED ---
Addendum entered by Anna Marie Flowers 06/18/19 17:03: Telephone call to patient, attempted to educate patient on ED Care Plan process and reason, for continuity of care. Patient became frustrated stating I don't want to talk about it and hung up on this social security assessor. Original Note: Social Work ED Care Plan approved my multidisciplinary team. ED Care Plan entered in this visit. ZEN Crouch
--- NOTE | 2019-06-23 14:01 | CM.ED ---
Social Work ED Care Plan sent to patient via certified mail along with resources. Tracking#[id number] Patient does not have a PCP, thus am unable to to sent ED Care Plan to a PCP. Will continue to follow to assist in setting up a PCP for patient. Neris DOLL, ZEN
== END 2019-05-11 20:13 | disposition home or self-care (01) ==
PROVIDERS: Emergency Provider Emergency Medicine
DX: M54.42 Lumbago with sciatica, left side (principal); M54.41 Lumbago with sciatica, right side; G89.29 Other chronic pain; M41.9 Scoliosis, unspecified; R19.7 Diarrhea, unspecified; E66.9 Obesity, unspecified; Z79.01 Long term (current) use of anticoagulants; Z79.899 Other long term (current) drug therapy
CPT/HCPCS: 99282

== ENCOUNTER 2019-06-24 18:04 | Emergency (ER) | payer MEDICARE, SELFPAY ==
[2019-06-24 18:05] VITALS: BP 126/86; PULSE 71; RESP 15; TEMP 36.3; O2SAT 98; BMI 31.7
--- NOTE | 2019-06-24 18:37 | ED.VISSUMM ---
- ER Visit Summary Date of Service: 06/24/19 Chief Complaint: Low back and tailbone pain History of Present Illness: The patient is a 68 F who presents with chronic low back and tailbone pain that became worse today. Patient states she fell a month and a half ago but denies any recent fall or trauma. Patient states this is similar to prior pain that she has had for years. Patient states she was dismissed from Dr. Juarez's practice because she lost her medications. Patient states she followed up with a new pain management physician who prescribed her methadone which she was unable to tolerate. Patient currently does not see a pain management physician. Physical Examination: Vital signs are stable. Patient is afebrile. Patient is in no acute distress. Musculoskeletal exam reveals tenderness to and mild spasm of the lumbar paraspinal muscles and sacrum. There is no bony crepitance or step-off. Patient was sitting in a wheelchair on exam without difficulty. Patient was able to bend forward. Strength is 5/5 bilaterally. There are no sensory deficits noted. Emergency Department Course and Treatment: Patient does have a care plan in place. This was given to the patient by social work. Patient was offered an injection of Toradol. Patient refused this. Patient was instructed to follow-up with her primary care physician or find another pain management physician for her chronic pain. Patient was understandable with the plan. All questions were answered. Disposition: Discharge home Impression: Acute on chronic low back pain This note was generated with [employer] dictation software. It may contain incorrect words, spelling, and punctuation that were not noted in review of the chart prior to signing ED Disposition - Plan for ED Patient: Disposition: Home or Assisted Living Diagnosis: Acute exacerbation of chronic low back pain Instructions: ED Chronic Pain Referrals: Care Physician,No Primary [Primary Care Provider] -
--- NOTE | 2019-06-24 18:42 | ED.RN ---
this rn into patient room.. pt pushing herself out of room. pt states loudly i am not staying. this rn explained to pt the jennifer from social work would like to go over care plan with pt. this rn gets cut off and pt wheels her wheelchair into this rn statting. i am not staying to get registered or anything. person with pt apologizes. this rn reminds pt she is making a choice. pt wheels past.jennifer and dr montero aware
--- NOTE | 2019-06-24 18:45 | CM.ED ---
SOCIAL WORK INFORMANT: DR. VILLEDA REASON FOR REFERRAL: ED CARE PLAN DISCUSSED PATIENT'S CARE PLAN WITH DR. VILLEDA. DR. VILLEDA TO SEE PATIENT AND THIS WORKER TO FOLLOW UP. PATIENT UNHAPPY ABOUT CARE PLAN. PATIENT LEFT AND REFUSED TO SPEAK WITH THIS WORKER. Luisa RUBIO, [employer]ATOR, [employer].
== END 2019-06-24 18:54 | disposition home or self-care (01) ==
LOC: ED 18:44
PROVIDERS: Emergency Provider Emergency Medicine
DX: M54.5 Low back pain (principal); M62.830 Muscle spasm of back; G89.29 Other chronic pain; I10 Essential (primary) hypertension; E66.9 Obesity, unspecified; Z79.01 Long term (current) use of anticoagulants; Z79.899 Other long term (current) drug therapy
CPT/HCPCS: 99282